=== PATIENT | male | born 1945 | race Caucasian/White ===

== ENCOUNTER 2022-11-02 18:42 | Inpatient (IN) | payer OTHER, SELFPAY ==
--- NOTE | ~2022-11-02 | CT_ITS ---
EXAMINATION: CT CHEST, ABDOMEN AND PELVIS WITHOUT CONTRAST CLINICAL INFORMATION: Reason for Exam hematoma over the left chest COMPARISON: Chest radiograph 11/02/2022 TECHNIQUE: Multidetector volumetric imaging was performed from the thoracic inlet through the pubic symphysis without IV contrast. Sagittal and coronal reformatted images were obtained on the technologist's workstation. This CT examination was performed using dose optimization techniques as appropriate, variously including the following: *Automated exposure control *Adjustment of mA and/or kV according to patient size (this includes techniques or standardized protocols for targeted exams where dose is matched to indication/reason for exam; i.e. extremities or head) *Use of iterative reconstruction technique DLP: 1040 mGy-cm FINDINGS: CHEST: Lung: Large calcified granuloma present in the right upper lobe. There is a small left pleural effusion with left basilar atelectasis. The lungs are otherwise clear without worrisome focal opacity or nodule. Mediastinum: Extensive coronary calcium is present. Status post median sternotomy and CABG. Heart size upper limits of normal. No aortic aneurysm. No hilar or mediastinal lymphadenopathy. Pericardium/Pleura: No significant effusion. No pleural mass or thickening. Chest Wall/Axilla: A large left chest wall hematoma is present measuring 9.4 x 14.7 x 15.7 cm (3:26). The hematoma displaces a left chest wall pacemaker with 3 leads are present in good position. A second hematoma is noted in front of the left scapula measuring 12.1 x 4.9 x 8.8 cm (3:19). Patient status post median sternotomy. A left shoulder prosthesis is present. ABDOMEN/PELVIS: Peritoneal Space: No significant free air or free fluid identified. Liver, Gallbladder, Biliary Tree: The liver is normal in size, shape, and attenuation. No focal hepatic lesion or biliary ductal dilatation is present. The gallbladder is unremarkable with no evidence of radiopaque gallstones, gallbladder wall thickening, or obvious pericholecystic inflammatory changes. Pancreas: Unremarkable Spleen: Unremarkable Adrenal Glands: Unremarkable Kidneys and Ureters: The kidneys are normal in size, shape, and attenuation. No hydronephrosis, hydroureter, or calculi seen. No perinephric stranding. Bladder: Unremarkable Gastrointestinal Tract: The small and large bowel are unremarkable. The appendix is unremarkable. Abdominal Wall: No significant hernia is appreciated. Lymph Nodes: No retroperitoneal lymphadenopathy. Vascular: The aorta appears unremarkable aside from calcific plaque. The IVC appears unremarkable. PELVIC VISCERA: The prostate and seminal versicles are unremarkable. OSSEUS STRUCTURES: Moderate degenerative changes are noted in the spine. No bony destructive lesions are seen. CT/CT abdomen pelvis wo IV con IMPRESSION: 2 Large left chest wall hematomas. Other incidental findings as described above. Fleischner guidelines were followed.
--- NOTE | ~2022-11-02 | XR_ITS ---
EXAMINATION: XR CHEST CLINICAL INFORMATION: Chest pain. COMPARISON: None available. TECHNIQUE: Frontal view of the chest was obtained. FINDINGS: Minimal patchy left upper lobe opacities which could represent atelectasis versus early infiltrates. No pleural effusion or pneumothorax. Mild cardiomegaly. Sternal wires and mediastinal surgical clips. Left chest wall pacer/ICD with its leads in the right heart. Partially visualized left shoulder arthroplasty. XR/XR chest 1V IMPRESSION: 1. Minimal patchy left upper lobe opacities which could represent atelectasis versus early infiltrates. 2. Mild cardiomegaly.
--- NOTE | ~2022-11-02 | CT_ITS ---
EXAMINATION: CT HEAD WITHOUT CONTRAST CLINICAL INFORMATION: CVA. COMPARISON: None. TECHNIQUE: Contiguous axial imaging was performed from the skull base to vertex without intravenous administration of contrast. Coronal and sagittal reformatted images are performed at the CT scanner. [This CT examination was performed using dose optimization techniques as appropriate, variously including the following: *Automated exposure control *Adjustment of mA and/or kV according to patient size (this includes techniques or standardized protocols for targeted exams where dose is matched to indication/reason for exam; i.e. extremities or head) *Use of iterative reconstruction technique] DLP: 680 mGy-cm. FINDINGS: There is no evidence of acute intracranial hemorrhage or territorial infarction. No abnormal mass-effect or midline shift is seen. Vasquez to white matter differentiation is well preserved. No extra-axial fluid collections are identified. There is generalized global volume loss. There is moderate prominence of the ventricles and the sulci . There is moderate hypodensity of the periventricular white matter due to chronic small vessel ischemic disease. There are vascular calcifications of the internal carotid arteries bilaterally. There is no osseous abnormality. The mastoid air cells and visualized portions of the paranasal sinuses are well-aerated. CT/CT head/brain wo IV con IMPRESSION: No acute intracranial pathology.
[2022-11-02 19:17] VITALS: BP 126/55; BP 164/53; PULSE 71; PULSE 81; RESP 20; TEMP 37; O2SAT 96; O2SAT 97; BMI 28.5
[2022-11-02 20:00] VITALS: BP 164/53; PULSE 71; RESP 20; TEMP 37; O2SAT 97
--- NOTE | 2022-11-02 20:22 | ECG_ITS ---
Test Reason : CP Blood Pressure : / mmHG Vent. Rate : 070 BPM Atrial Rate : 070 BPM P-R Int : 000 ms QRS Dur : 148 ms QT Int : 448 ms P-R-T Axes : 000 -47 070 degrees QTc Int : 483 ms Ventricular-paced rhythm Biventricular pacemaker detected Abnormal ECG No previous ECGs available Referred By: Nancie Mcmillan Electronically Signed By:Nadir Stock
--- NOTE | 2022-11-02 20:36 | ED.AMS ---
HPI - Altered Mental Status General Chief Complaint: Altered Mental Status Stated Complaint: ams Time Seen by Provider: 11/02/22 19:22 History of Present Illness HPI narrative: Patient is a 77-year-old male presents today with having sudden episode of wheezing into space had difficulty with enunciating words. Confused about the direction ways going. There is no focal weakness. Patient has a history of coronary artery disease. Status post stent in the past. Positive history of having aortic valve replacement. It is a mechanical valve and patient was placed on Coumadin. About 10 days ago patient also had shoulder surgery at [facility]. At the time the Coumadin was stopped and has been restarted. Patient denies any fever chills. No focal weakness. All the symptom has resolved. Presents to the ED for further evaluation. Related Data Home Medications Medication Instructions Recorded Confirmed alirocumab 150 mg/mL subcutaneous 150 mg subcut Q2W 11/02/22 11/02/22 pen injector (Praluent Pen) aspirin 81 mg tablet,delayed 81 mg PO DAILY 11/02/22 11/02/22 release bisoprolol fumarate 5 mg tablet 5 mg PO BID 11/02/22 11/02/22 digoxin 125 mcg (0.125 mg) tablet 1 tab PO DAILY 11/02/22 11/02/22 lansoprazole 30 mg capsule,delayed 30 mg PO DAILY 11/02/22 11/02/22 release latanoprost 0.005 % eye drops 1 drp ophthalmic (eye) BEDTIME 11/02/22 11/02/22 tamsulosin 0.4 mg capsule 1 cap PO DAILY 11/02/22 11/02/22 valsartan 80 mg tablet 1 tab PO DAILY 11/02/22 11/02/22 warfarin 5 mg tablet 5 mg PO Q2D 11/02/22 11/02/22 warfarin 5 mg tablet 7.5 mg PO Q2D 11/02/22 11/02/22 Allergies Allergy/AdvReac Type Severity Reaction Status Date / Time No Known Allergies Allergy Verified 11/02/22 20:07 Review of Systems Review of Systems: Positive slurred speech Positive confusion Yes all other systems are reviewed and are negative [facility] Past Medical History Attestation statement: The following information was validated with the patient. Social History Social History Alcohol intake: current Alcohol intake frequency: holidays/special occasions only Smoked in Last 30 Days: No Use of substances other than those prescribed or required for medical reasons: No Advance Directives: Yes Advance Directives Information Provided: No Advance Directives on File: No Physical Exam ED Vital Signs: Vital Signs - 24 hr 11/02/22 19:17 11/02/22 20:00 11/02/22 22:33 Temperature 98.6 F 98.6 F 99 F Pulse Rate 71 71 10 L Respiratory Rate 20 20 24 H Blood Pressure 164/53 H 164/53 H 163/65 H Pulse Oximetry 97 97 Oxygen Delivery Method Room Air Room Air 11/02/22 22:00 Temperature 99 F Pulse Rate 70 Respiratory Rate 21 H Blood Pressure 168/61 H Pulse Oximetry 97 Oxygen Delivery Method Room Air BMI result Body Mass Index 28.5 Appearance: Alert. Oriented X3. No acute distress. Eyes: Pupils equal, round and reactive to light. ENT: Pharynx normal. Neck: Normal inspection. Neck supple. No lymph nodes noted. No crepitus CVS: Normal heart rate and rhythm. Pulses normal. Normal S1 and S2 Respiratory: No respiratory distress. Breath sounds normal. No Wheezing. No rales Abdomen: Soft and nontender. No rigidity. No distention. good BS x4 Skin: Skin warm and dry. Normal skin color. Normal skin turgor. Rectal exam was done with nurse saadia present. Heme-negative brown stool Extremities: Positive swelling over the left pectoralis area patient's wound over the left shoulder grossly intact sensation distally intact positive swelling to the upper extremity capillary refill less than 2 seconds. Neuro: Oriented X 3. No motor deficit. No sensory deficit. Moving all extermities. No slurred speech. Please see NIH stroke scale NIH Stroke Scale Internal: Initial- Upon Arrival Time: 20:48 Level of Consciousness: Alert Level of Consciousness Questions: Answers both questions correctly Level of Consciousness Commands: Performs both tasks correctly Best Gaze: Normal Visual: No visual loss Facial Palsy: Normal Motor Arm (Right): No drift Motor Arm (Left): No drift Motor Leg (Right): No drift Motor Leg (Left): No drift Limb Ataxia: Absent Sensory: Normal Best Language: No aphasia Dysarthia: Normal Extinction and Inattention: No abnormality Score: 0 Medical Decision Making Medical Decision Making MDM Narrative: Patient's symptoms most likely consistent with TIA. Symptom has completely resolved. NIH stroke scale was 0. Patient is on Coumadin making patient not a candidate for tPA. Also symptoms of brief duration neurologic is status back to baseline not a candidate for tPA. Will get CT scan of the head. Electrolytes pending. INR pending. Patient's INR is over 3 therapeutic. Hemoglobin however came back at 6.3. Grossly anemic. Most likely cause of patient's anemia secondary to the large hematoma over the pectoralis and also over the abdomen. Rectal exam was done it was grossly heme negative from below. Risk and benefit of transfusion discussed with patient. Elected to transfuse patient with blood. Risk include risk of infection risk of human error patient states understanding. Patient had likely TIA. I reviewed the CT sc grossly there is no bleeding. Case discussed with hospitalist team for admission. Will monitor carefully. In stable condition. Differential Diagnosis Differential Diagnoses: The differential diagnosis associated with the presentation includes CVA, TIA, hypoglycemia, bleed Admission/Observation Consideration of admission/observation: Escalation of care including admission/observation considered Consult Healthcare Provider Management of the patient was discussed with: Hospitalist Lab Data MDM Lab Attestation statement: I reviewed the patient's lab results. 11/02/22 21:00 11/02/22 21:00 Labs: Lab Results 11/02/22 11/02/22 11/02/22 Range/Units 21:00 21:00 21:00 WBC 14.6 H (4.8-10.8) X10*3/uL RBC 1.98 L (4.60-5.80) X10*6/uL Hgb 6.3 L* (14.0-18.0) g/dl Hct 19.2 L* (42.0-52.0) % MCV 97.0 (80.0-98.0) fL MCH 31.8 (27.0-33.0) pg MCHC 32.8 (31.0-36.0) g/dl RDW 15.3 (11.0-16.0) % Plt Count 440 H (160-400) X10*3/uL MPV 9.2 L (9.4-12.4) fL Immature Gran % (Auto) 1.3 H (0.0-0.4) % Neut % (Auto) 82.5 H (45-73) % Lymph % (Auto) 7.1 L (20-40) % [place] % (Auto) 8.7 (2-11) % Eos % (Auto) 0.3 (0-4) % Baso % (Auto) 0.1 (0-2) % Lymph # (Auto) 1.0 L (1.2-4.9) X10*3/uL [place] # (Auto) 1.3 H (0.1-1.2) X10*3/uL Eos # (Auto) 0.1 (0.0-0.4) X10*3/uL Baso # (Auto) 0.0 (0.0-0.2) X10*3/uL Abs Immat Gran (auto) 0.19 H (0.00-0.03) X10*3/uL Absolute Neuts (auto) 12.1 H (2.0-8.3) x10*3/uL Absolute Nucleated RBC 0.020 H (0.0-0.012) X10*3/uL Nucleated RBC % (auto) 0.1 (0.0-0.2) /100WBC PT (10.0-13.1) SEC INR (0.9-1.1) Sodium 129 L (135-145) mmol/L Potassium 4.3 (3.3-5.1) mmol/L Chloride 96 (96-108) mmol/L Carbon Dioxide 25 (22-29) mmol/L Anion Gap 12 (12-20) BUN 16 (9-16) mg/dL Creatinine 0.68 (0.5-1.4) mg/dL Estim Creat Clear Calc 108.9 Estimated GFR > 60 Random Glucose 120 H (60-115) mg/dL Calcium 8.2 L (8.4-10.2) mg/dL Total Bilirubin 2.8 H (0.0-1.0) mg/dL Direct Bilirubin 1.0 H (0.0-0.5) mg/dL AST 39 H (5-37) U/L ALT 20 (0-40) U/L Alkaline Phosphatase 79 (39-117) U/L Troponin I High Sens 48.5 H (<3.5-35.0) ng/L Total Protein 5.6 L (6.5-8.0) g/dL Albumin 3.2 L (3.5-5.0) g/dL Stool Occult Blood (NEGATIVE) Blood Type Antibody Screen Crossmatch 11/02/22 11/02/22 11/02/22 Range/Units 21:00 21:33 21:33 WBC (4.8-10.8) X10*3/uL RBC (4.60-5.80) X10*6/uL Hgb (14.0-18.0) g/dl Hct (42.0-52.0) % MCV (80.0-98.0) fL MCH (27.0-33.0) pg MCHC (31.0-36.0) g/dl RDW (11.0-16.0) % Plt Count (160-400) X10*3/uL MPV (9.4-12.4) fL Immature Gran % (Auto) (0.0-0.4) % Neut % (Auto) (45-73) % Lymph % (Auto) (20-40) % [place] % (Auto) (2-11) % Eos % (Auto) (0-4) % Baso % (Auto) (0-2) % Lymph # (Auto) (1.2-4.9) X10*3/uL [place] # (Auto) (0.1-1.2) X10*3/uL Eos # (Auto) (0.0-0.4) X10*3/uL Baso # (Auto) (0.0-0.2) X10*3/uL Abs Immat Gran (auto) (0.00-0.03) X10*3/uL Absolute Neuts (auto) (2.0-8.3) x10*3/uL Absolute Nucleated RBC (0.0-0.012) X10*3/uL Nucleated RBC % (auto) (0.0-0.2) /100WBC PT 41.3 H (10.0-13.1) SEC INR 3.4 H (0.9-1.1) Sodium (135-145) mmol/L Potassium (3.3-5.1) mmol/L Chloride (96-108) mmol/L Carbon Dioxide (22-29) mmol/L Anion Gap (12-20) BUN (9-16) mg/dL Creatinine (0.5-1.4) mg/dL Estim Creat Clear Calc Estimated GFR Random Glucose (60-115) mg/dL Calcium (8.4-10.2) mg/dL Total Bilirubin (0.0-1.0) mg/dL Direct Bilirubin (0.0-0.5) mg/dL AST (5-37) U/L ALT (0-40) U/L Alkaline Phosphatase (39-117) U/L Troponin I High Sens (<3.5-35.0) ng/L Total Protein (6.5-8.0) g/dL Albumin (3.5-5.0) g/dL Stool Occult Blood NEGATIVE (NEGATIVE) Blood Type O Positive Antibody Screen NEGATIVE Crossmatch See Detail Independent Interpretation I performed an independent interpretation of an: EKG Interpretation: My interpretation patient's EKG is a paced rhythm heart rate was 70 Radiology Impression Discussion of test interpretation with radiology: I have reviewed the radiologist's reading. Independent Historian Son Chronic Conditions Patient?s care impacted by: Hypertension History of coronary artery disease. History of being on Coumadin for aortic valve replacement Critical Care Time Critical Care Time Critical Care Time: Yes Total Critical Care Time: 40 Attestation: I have personally provided 40 minutes of critical care time exclusive of time spent on separately billable procedures. Time includes review of lab data, radiology results, discussion with consultants, and monitoring for potential decompensation. Interventions were performed as documented above Discharge Plan Discharge Clinical Impression: Anemia, Brain TIA Patient Disposition: Admitted As Inpatient
[2022-11-02 21:04] LABS: MANUAL DIFF FLAG NO
[2022-11-02 21:05] LABS: Basophils Percent Auto 0.1 % (0-2); Eosinophils Percent Auto 0.3 % (0-4); Lymphocytes Percent Auto 7.1 % (20-40); Red Cell Distribution Width 15.3 % (11.0-16.0)
[2022-11-02 21:10] LABS: Eosinophils Absolute Auto 0.1 X10*3/uL (0.0-0.4); INTERNATIONAL NORM RATIO 3.4 (0.9-1.1); Imm Gran Abs Auto 0.19 X10*3/uL (0.00-0.03); Imm Gran Pct Auto 1.3 % (0.0-0.4); Mean Corpuscular HGB Conc 32.8 g/dl (31.0-36.0); Mean Corpuscular Hemoglobin 31.8 pg (27.0-33.0); Mean Platelet Volume 9.2 fL (9.4-12.4); Monocytes Absolute Auto 1.3 X10*3/uL (0.1-1.2); Monocytes Percent Auto 8.7 % (2-11); NRBC Pct Auto 0.1 /100WBC (0.0-0.2); Neutrophils Absolute Auto 12.1 x10*3/uL (2.0-8.3); Neutrophils Percent Auto 82.5 % (45-73); Platelet Count 440 X10*3/uL (160-400); Prothrombin Time 41.3 SEC (10.0-13.1); Red Blood Count 1.98 X10*6/uL (4.60-5.80); White Blood Count 14.6 X10*3/uL (4.8-10.8)
[2022-11-02 21:13] LABS: Hematocrit 19.2 % (42.0-52.0); Hemoglobin 6.3 g/dl (14.0-18.0)
[2022-11-02 21:24] LABS: Alanine Aminotransferase 20 U/L (0-40); Albumin Level 3.2 g/dL (3.5-5.0); Alkaline Phosphatase 79 U/L (39-117); Anion Gap 12 (12-20); Aspartate Amino Transferase 39 U/L (5-37); Bilirubin Total 2.8 mg/dL (0.0-1.0); Blood Urea Nitrogen 16 mg/dL (9-16); Calcium 8.2 mg/dL (8.4-10.2); Carbon Dioxide 25 mmol/L (22-29); Chloride 96 mmol/L (96-108); Creatinine Clr Calc Pharmacy 108.9; Estimated Glomerular Filt Rate > 60; Glucose Random 120 mg/dL (60-115); Potassium 4.3 mmol/L (3.3-5.1); Sodium 129 mmol/L (135-145); Total Protein 5.6 g/dL (6.5-8.0)
[2022-11-02 21:31] LABS: Troponin-I High Sensitivity 48.5 ng/L (<3.5-35.0)
[2022-11-02 21:42] LABS: OBS Int Ctl Valid YES; OBS1 NEGATIVE (NEGATIVE)
[2022-11-02 22:00] VITALS: BP 168/61; PULSE 70; RESP 21; TEMP 37.2; O2SAT 97
--- NOTE | 2022-11-02 22:10 | PHA.MEDREC ---
Pharmacy Consult ? Medication Reconciliation Pharmacy has completed the medication reconciliation. Cesar was very irrate, in much pain and not given anything. he states with his son that he was supposed to borrow warfarin today, but was told to hold off since he was going to the ED. Patient states he had an adverse effect from the zolpidem and is no longer taking it Jeremie
[2022-11-02 22:33] VITALS: BP 163/65; PULSE 10; RESP 24; TEMP 37.2
[2022-11-02 22:52] VITALS: BP 160/73; PULSE 70; RESP 22; TEMP 37
[2022-11-02] MEDS: HYDROmorphone HCl 0.5 MG/0.5 ML SYRINGE 0.25 MG IVPUSH (22:58)
[2022-11-02 23:09] LABS: COVID-19 Test Negative (Negative); IDNOW Serial# 6674DD1D
[2022-11-02 23:16] VITALS: BP 154/61; PULSE 70; RESP 13; TEMP 37; O2SAT 97
--- NOTE | 2022-11-02 23:16 | P.HPHOSP_ITS ---
History of Present Illness Date of Service: 11/02/22 Chief Complaint: Speech deficit This is a 77-year-old male with pertinent history of aortic stenosis status post valve replacement on Coumadin, atrial fibrillation status post pacemaker, BPH, essential hypertension, mixed hyperlipidemia, gastroesophageal reflux disease who presents to the emergency department for evaluation of abnormal speech. Patient states it was sudden onset on the day of presentation. States he could not find words and son at bedside states that his speech was mumbled. It lasted for about 2 hours and resolved. No blurring of vision, extremity weakness, facial droop or similar complaints in the past. Patient had shoulder surgery about 2 weeks ago at [facility]. He has noticed progressively worsening of hematoma at the site of shoulder surgery. He saw his orthopedic surgeon who recommended conservative management of the hematoma. Patient denies fever, chills, chest discomfort, palpitations, shortness of breath, abdominal pain, changes in urinary or bowel habits. In the emergency department, CT head negative. Hemoglobin was found to be 6.3 Review of Systems Constitutional: Constitutional: Reports fatigue Cardiovascular: Cardiovascular: Reports no additional cardiovascular complaints Respiratory: Respiratory: Reports no additional respiratory complaints Gastrointestinal: Gastrointestinal: Reports no additional gastrointestinal complaints Genitourinary: Genitourinary: Reports no additional male genitourinary complaints Neurologic: Reports Abnormal speech present Endocrine: Endocrine: Reports fatigue PMFSH Medical History Atrial fibrillation BPH (benign prostatic hyperplasia) Essential hypertension Hyperlipidemia Pacemaker Pertinent family history: no family history of CAD Surgical History H/O aortic valve replacement Social History Alcohol intake: current Alcohol intake frequency: holidays/special occasions only Smoked in Last 30 Days: No Use of substances other than those prescribed or required for medical reasons: No Advance Directives: Yes Advance Directives Information Provided: No Advance Directives on File: No Meds Allergies Allergy/AdvReac Type Severity Reaction Status Date / Time No Known Allergies Allergy Verified 11/02/22 20:07 Active Medications: Current Medications Pharmacy Consult (Consult Rx Perform Med Rec) 1 each MISCELLANE ONCE PRN PRN Reason: Consult order Home Medications Medication Instructions Recorded Confirmed Last Taken Type alirocumab 150 mg/mL subcutaneous 150 mg subcut Q2W 11/02/22 11/02/22 Unknown History pen injector (Praluent Pen) aspirin 81 mg tablet,delayed 81 mg PO DAILY 11/02/22 11/02/22 11/02/22 History release bisoprolol fumarate 5 mg tablet 5 mg PO BID 11/02/22 11/02/22 11/01/22 History digoxin 125 mcg (0.125 mg) tablet 1 tab PO DAILY 11/02/22 11/02/22 11/02/22 History lansoprazole 30 mg capsule,delayed 30 mg PO DAILY 11/02/22 11/02/22 11/02/22 History release latanoprost 0.005 % eye drops 1 drp ophthalmic (eye) BEDTIME 11/02/22 11/02/22 11/01/22 History tamsulosin 0.4 mg capsule 1 cap PO DAILY 11/02/22 11/02/22 Unknown History valsartan 80 mg tablet 1 tab PO DAILY 11/02/22 11/02/22 Unknown History warfarin 5 mg tablet 5 mg PO Q2D 11/02/22 11/02/22 Unknown History warfarin 5 mg tablet 7.5 mg PO Q2D 11/02/22 11/02/22 Unknown History Physical Exam Vital Signs and Narrative: Vital Signs: Last Vital Signs Temp 98.6 F 11/02/22 22:52 Pulse 70 11/02/22 22:52 Resp 22 H 11/02/22 22:52 BP 160/73 H 11/02/22 22:52 Pulse Ox 97 11/02/22 22:00 O2 Del Method 11/02/22 22:00 BMI result Body Mass Index 28.5 Middle-aged male lying in bed in no distress Neck supple, no JVD, swelling over the left pectoralis region Regular rate and rhythm, S1-S2 heard Regular breath sounds bilaterally, no wheezing or crackles appreciated Abdomen soft nontender, no guarding, no rigidity Patient is awake, alert and oriented to self, place, time and person ; no focal motor deficit skin with multiple petechiae Psych: Normal mood No pedal edema Neuro: Speech: Abnormal speech present Results Labs 11/02/22 21:00 11/02/22 21:00 Labs: Laboratory Results - last 24 hr 11/02/22 11/02/22 11/02/22 21:00 21:00 21:00 MCV 97.0 MCH 31.8 MCHC 32.8 RDW 15.3 Plt Count 440 H MPV 9.2 L Immature Gran % (Auto) 1.3 H Neut % (Auto) 82.5 H Lymph % (Auto) 7.1 L [place] % (Auto) 8.7 Eos % (Auto) 0.3 Baso % (Auto) 0.1 Lymph # (Auto) 1.0 L [place] # (Auto) 1.3 H Eos # (Auto) 0.1 Baso # (Auto) 0.0 Abs Immat Gran (auto) 0.19 H Absolute Neuts (auto) 12.1 H Absolute Nucleated RBC 0.020 H Nucleated RBC % (auto) 0.1 PT INR Anion Gap 12 Estim Creat Clear Calc 108.9 Estimated GFR > 60 Random Glucose 120 H Calcium 8.2 L Total Bilirubin 2.8 H Direct Bilirubin 1.0 H AST 39 H ALT 20 Alkaline Phosphatase 79 Troponin I High Sens 48.5 H Total Protein 5.6 L Albumin 3.2 L Stool Occult Blood COVID-19 (LUZ MARINA) COVID-19 [employer] Blood Type Antibody Screen Crossmatch 11/02/22 11/02/22 11/02/22 21:00 21:33 21:33 MCV MCH MCHC RDW Plt Count MPV Immature Gran % (Auto) Neut % (Auto) Lymph % (Auto) [place] % (Auto) Eos % (Auto) Baso % (Auto) Lymph # (Auto) [place] # (Auto) Eos # (Auto) Baso # (Auto) Abs Immat Gran (auto) Absolute Neuts (auto) Absolute Nucleated RBC Nucleated RBC % (auto) PT 41.3 H INR 3.4 H Anion Gap Estim Creat Clear Calc Estimated GFR Random Glucose Calcium Total Bilirubin Direct Bilirubin AST ALT Alkaline Phosphatase Troponin I High Sens Total Protein Albumin Stool Occult Blood NEGATIVE COVID-19 (LUZ MARINA) COVID-[employer] Blood Type O Positive Antibody Screen NEGATIVE Crossmatch See Detail 11/02/22 22:43 MCV MCH MCHC RDW Plt Count MPV Immature Gran % (Auto) Neut % (Auto) Lymph % (Auto) [place] % (Auto) Eos % (Auto) Baso % (Auto) Lymph # (Auto) [place] # (Auto) Eos # (Auto) Baso # (Auto) Abs Immat Gran (auto) Absolute Neuts (auto) Absolute Nucleated RBC Nucleated RBC % (auto) PT INR Anion Gap Estim Creat Clear Calc Estimated GFR Random Glucose Calcium Total Bilirubin Direct Bilirubin AST ALT Alkaline Phosphatase Troponin I High Sens Total Protein Albumin Stool Occult Blood COVID-19 (LUZ MARINA) Negative COVID-19 Clin Com See Note Blood Type Antibody Screen Crossmatch Imaging Radiologist's Impressions: Impressions Chest X-Ray 11/02/22 20:40 IMPRESSION: 1. Minimal patchy left upper lobe opacities which could represent atelectasis versus early infiltrates. 2. Mild cardiomegaly. Head CT 11/02/22 22:25 IMPRESSION: No acute intracranial pathology. Assessment and Plan (1) Brain TIA: Status: Acute (2) Anemia: Status: Acute Plan This is a 77-year-old male with pertinent history of aortic stenosis status post valve replacement on Coumadin, atrial fibrillation status post pacemaker, BPH, essential hypertension, mixed hyperlipidemia, gastroesophageal reflux disease who presents to the emergency department for evaluation of abnormal speech. #. abnormal speech, resolved: ?TIA . Unable to obtain MRI as patient has pacemaker. Consulting Neurology, appreciate assistance #. Blood loss anemia, likely in the setting of enlarging hematoma: Stool guaiac negative in the ER. Patient denies hematemesis, hematuria, melena or hematochezia. Transfusing 1 unit PRBC in the ER, monitor H&H in a.m. CT chest pending to look at the chest wall hematoma and delineate anatomy. Patient states he saw his orthopedic surgeon who recommended conservative management of hematoma #. Reactive leukocytosis: defer antibiotics #. s/p aortic valve replacement: On Coumadin, Hold as INR is supratherapeutic. INR goal 2-3. Repeat INR in a.m. #. elevated troponin: Likely due to increased demand. #. BPH on Flomax #. essential hypertension: Continue home antihypertensives #. atrial fibrillation: Status post pacemaker. Patient also on digoxin and beta-prem med rec pending DVT prophylaxis: Coumadin Cardiac diet Full code Time Spent With Patient Time: Total time managing care of this patient today ____ minutes. Quality Stroke Does the patient have a stroke diagnosis?: No VTE Prior VTE?: No VTE Risk Level:: Medical - moderate - high VTE Device Contraindication: Treatment Not Indicated VTE Drug Contraindication: N/A - Med Ordered
[2022-11-03] VITALS (12 sets, daily range): BP systolic 134–168; BP diastolic 49–74; PULSE 70–72; RESP 14–23; TEMP 36.6–37.3; O2SAT 94–98
[2022-11-03] MEDS: ondansetron HCL 4 MG/2 ML VIAL IVPUSH (00:25)
[2022-11-03] MEDS: Morphine Sulfate 4 MG/ML CARTRIDGE IVPUSH ×2 (00:25→04:29)
[2022-11-03] MEDS: 0.9 % Sodium Chloride Flush 3 ML SYRINGE IVFLUSH ×3 (00:26→20:50)
[2022-11-03] MEDS: 0.9 % Sodium Chloride 500 ML IV (00:26)
[2022-11-03 00:49] LABS: Appearance Urine Clear; Color Urine Dark Yellow; Glucose Urine UA Negative (Negative); Leukocyte Esterase Urine Trace (Negative); Nitrite Urine Positive (Negative); PH 5.5 (5.0-9.0); Specific Gravity - Urine 1.025 (1.005-1.025); UMIC TRIGGER UACC YES; Urine Blood Negative (Negative); Urine Ketones Trace mg/dL (Negative); Urine Protein 30 (1+) mg/dL (Neg-Trace)
[2022-11-03 00:58] LABS: Bacteria Urine Trace (None Seen); Squamous Epithelial Cell Urine 0-2 /HPF (0-2); UACC Culture Trigger YES; WBC Urine 0-5 /HPF (0-5)
--- OUTSIDE RECORDS SUMMARY | 2022-11-03 05:31 | XMS_ITS | Continuity of Care Document ---
:1945 Author Organization [facility] Care Team Providers Name Role Phone DOD-IN Unavailable Unavailable Problems Combined list of problems from Department of Defense and Veterans Affairs facilities. It does not include entries that were removed or entered in error. Problem Status Onset Problem Date of Comments Source Date Type Resolution Aortic valve Active Condition Feb 10, [facility] CNT RL disorders 993 2011 Entered WSTRN By: KARLA ROME [facility] ANAYELI F Comment: AVR with St See's 01/1993. Allergic rhinitis * Active Condition [facility] (ICD-9-CM 477.9) WST RN JENIFFER Wiggins [facility] Carcinoma, Basal Active Condition [facility] CN[facility] Cell (ICD-9-CM WSTRN 173.9) JENIFFER Wiggins [facility] Cardiac pacemaker in Active Condition [facility] situ WSTRN JENIFFER Wiggins [facility] Cervicalgia (SNOMED Active Condition [facility] CNTRL CT 32900910) WSTRN MIGUEL ÁNGELBEBETO Wiggins [facility] Chronic Active Condition Nov 18, [place] CNTRL post-traumatic 2011 Entered WS TRN stress disorder By: MIGUEL ÁNGEL BAKERS following ARRUBLA,Oct [facility] combat (SNOMED CT S Comment : [id number]) back on psychotherapy Dec 09, 2016 Entered By: VERN MEDELLIN Comment: update Aug 19, 2017 Entered By: VERN MEDELLIN Comment: ujpdate Aug 09, 2018 Entered By: VENR MEDELLIN Comment: udpate Oct 23, 2021 Entered By: SHAWN SILVER Comment: stable Congestive heart Active Condition Jul 01, [place] CNTRL failure 2015 Entered WSTRN By: DANIEL MOISE [facility] Comment: LILIANA 05/11/16 EF 30% Coronary artery Active Condition Jul 01, [place] CNTR[facility] disease 2015 Entered WSTRN By: DANIEL MOISE [facility] Comment: LCx MICHAEL 03/05/16 Essential Active Condition [facility] hypertension (SNOMED WSTRN CT 02426551) [place] [facility] Gastroesophageal Active Condition [facility] reflux disease WSTR[facility] (SNOMED CT [place] 064822919) HCS Headache * (ICD-9-CM Active Condition [facility] 784.0) [facility] [place] [facility] Hearing loss * Active Condition [facility] CN TRL (ICD-9-CM 389.9) WST RN [place] [facility] Heme Positive Stool Active Condition [facility] [place] [facility] History of Active Condition [facility] mechanical heart WST RN valve replacement [place] [facility] Hyperlipidemia Active Condition [facility] CN TRL (SNOMED CT 18857443) [facility] [place] [facility] Impaired fasting Active Condition [facility] glucose [facility] [place] [facility] L/T (CURRENT) USE - Active Condition [facility] ANTICOAG [facility] [place] [facility] Long-term current Active Condition [facility] [place] use of anticoagulant Osteonecrosis Active Condition [facility] CNT RL [facility] [place] [facility] Overweight (ICD-9-CM Active Condition [facility] 278.02) [facility] [place] [facility] Pain of left Active Condition [facility] shoulder joint [facility] [place] [facility] Refractive error Active Condition [facility] (ICD-9-CM 367.9) [facility]ST RN [place] [facility] Sleep apnea Active Condition [facility] [place] [facility] STRESS TEST Active Condition Aug 01, [facility] CN[facility] L 2009 Entered WSTRN By: MAVERICK LEDEZMA [facility] R Comment: nl setamibi 07/02-mgh Adjustment Disorder Inactive Condition 08/18/2011 [facility] with Mixed Anxiety [facility]N and Depressed Mood [facility] Diagnosis: ICD-10-CM Active Diagnosis [facility] Z51.81 Encounter for WSTRN therapeutic drug [place] level monitoringwith [facility] Provider Comments: Therapeutic Drug Level Monitoring Diagnosis: ICD-10-CM Active Diagnosis [facility] G47.30 Sleep apnea, WSTRN unspecifiedwith [place] Provider Comments: H CS Sleep apnea (SNOMED CT 29276258) Diagnosis: ICD-10-CM Active Diagnosis [facility] Z71.9 Counseling, [place] TRN unspecifiedwith [place] Provider Comments: H CS Counseling, unspecified Diagnosis: ICD-10-CM Active Diagnosis [facility] M87.822 Other WSTRN osteonecrosis, left [place] humeruswith Provider HCS Comments: Osteonecrosis (SNOMED CT 440597396) Diagnosis: ICD-10-CM Active Diagnosis [facility] F43.12 WSTRN Post-traumatic [place] stress disorder, HCS chronicwith Provider Comments: Chronic post-traumatic stress disorder following combat ([facility] [id number]) Diagnosis: ICD-10-CM Active Diagnosis [place] Z79.01 retirement (current) use of anticoagulantswith Provider Comments: Recreational Aide Current Use of Anticoagulants Diagnosis: ICD-10-CM Active Diagnosis [facility] H40.1234 Low-tension WSTRN glaucoma, bilateral, [place] indeterminate HCS stagewith Provider Comments: Low-Tension Glaucoma, Bilateral, Indeterminate Stage Diagnosis: ICD-10-CM Active Diagnosis [facility] CNTR L71.8 Other WSTRN rosaceawith Provider [place] Comments: Other HCS Rosacea Diagnosis: ICD-10-CM Active Diagnosis [facility] Z46.0 Encounter for WSTRN fit/adjst of [place] spectacles and HCS contact lenseswith Provider Comments: Encounter for Fitting and Adjustment of Spectacles and Contact Lenses Diagnosis: ICD-10-CM Active Diagnosis MELISSA [facility] E78.5 [facility]INIC Hyperlipidemia, (631 GE) unspecifiedwith Provider Comments: Hyperlipidemia ([facility] [id number]) Diagnosis: ICD-10-CM Active Diagnosis [facility] G47.30 Sleep apnea, WSTRN unspecifiedwith [place] Provider Comments: H CS Sleep Apnea, unspecified Diagnosis: ICD-10-CM Active Diagnosis [facility] I50.22 Chronic WSTRN systolic [place] (congestive) heart H CS failurewith Provider Comments: Congestive heart failure ([facility] [id number]) Diagnosis: ICD-10-CM Active Diagnosis [facility] 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, HCS lumbosacr regionwith Provider Comments: Spondylosis without Myelopathy or Radiculopathy, Lumbosacral Region Diagnosis: ICD-10-CM Active Diagnosis [facility] Z46.1 Encounter for WSTRN fitting and [place] adjustment of HCS hearing aidwith Provider Comments: Encounter for Fitting and Adjustment of Hearing Aid Diagnosis: ICD-10-CM Active Diagnosis [facility] H90.3 Sensorineural WSTRN hearing loss, [place] bilateralwith HCS Provider Comments: Sensorineural Hearing Loss, Bilateral Medications Combined list of outpatient medications from Department of Defense and Veterans Affairs facilities. Medications provided include 1) outpatient medications from the last 15 months, and 2) patient-reported medications. Medication Details Route Status Patient Prescription Prescription Last Ordering Order Source Instructions Expires Number Dispense Provider Date Date ASPIRIN TAKE ONE ORAL ACTIVE 12/26/2022 [id number] AHMED,MO H 12/29/ [facility] 81MG TAB,EC TABLET 2 AMMED 2021 CNTRL BY MOUTH JAWED WSTRN ONCE [place] DAILY TO SETS PREVENT HCS STROKE/H EART ATTACK ASPIRIN TAKE ONE ORAL DISCONT 04/15/2022 [id number] AHMED,MO H 04/15/ [facility] 81MG TAB,EC TABLET INUED 2 AMMED 2020 CNTRL BY MOUTH JAWED WSTRN ONCE [place] DAILY TO SETS PREVENT HCS STROKE/H EART ATTACK BISOPROLOL TAKE ONE ORAL 10/30/2022 [id number] HMED,MOH 10/29/ VA FUMARATE TABLET 2 AMMED 2021 CNTRL 5MG TAB BY MOUTH JAWED WSTRN TWICE [place] DAILY SETS HCS CITALOPRAM TAKE ONE ORAL ACTIVE 05/01/2023 [id number] Bertha PARIS 05/01/ VA HYDROBROMID TABLET 2 ACQUELYN 2021 CNTR L E 20MG TAB BY MOUTH WSTRN AT [place] BEDTIME SETS FOR HCS DEPRESSI ON AND ANXIETY CITALOPRAM TAKE ONE ORAL DISCONT 10/24/2022 [id number] Bertha LOVE 10/24/ VA HYDROBROMID TABLET INUED 2 ACQUELYN 2021 CNTR L E 20MG TAB BY MOUTH WSTRN AT [place] BEDTIME SETS FOR HCS DEPRESSI ON AND ANXIETY CITALOPRAM TAKE ORAL DISCONT 10/17/2022 [id number] Bertha SILVER 10/16/ VA HYDROBROMID ONE-HALF INUED 2 ACQUELYN 2021 CN TRL E 20MG TAB TABLET WSTRN BY MOUTH [place] AT SETS BEDTIME HCS FOR DEPRESSI ON AND ANXIETY COENZYME TAKE ONE ORAL ACTIVE SOPHDOTTIE, 06/27/ [place] Q10 CAP/TAB TABLET SIRISHA Gonzalez 2018 CNT RL BY MOUTH WSTRN ONCE [place] DAILY SETS NEEDED HCS DIGOXIN TAKE ONE ORAL ACTIVE 12/26/2022 [id number] [facility] 01/19/ VA 0.125MG TAB TABLET 2 AMMED 2021 CNTRL BY MOUTH JAWED WSTRN ONCE [place] DAILY SETS HCS DIGOXIN TAKE ONE ORAL DISCONT 04/15/2022 [id number] [facility] 05/04/ VA 0.125MG TAB TABLET INUED 2 AMMED 2020 CNTRL BY MOUTH JAWED WSTRN ONCE [place] DAILY SETS HCS ENOXAPARIN INJECT 1 SUBCUT ACTIVE 11/15/2022 [id number] MIRYAM MAYERS, 10/21/ [facility] 100MG/ML SYRINGE ANEOUS 3 RISTINE F 2022 ER V A INJ,[place] (100MG) CLINIC ,1ML SUBCUTAN (631GE) EOUSLY EVERY 12 HOURS TO PREVENT BLOOD CLOTS ENOXAPARIN INJECT 1 SUBCUT DISCONT 11/12/2022 [id number] [facility], 10/13/ [facility] 100MG/ML SYRINGE ANEOUS INUED 3 RISTINE F 2022 CNTR L INJ,SYRINGE (100MG) WSTRN ,1ML SUBCUTAN [place] EOUSLY SETS EVERY 12 HCS HOURS FERROUS TAKE ONE ORAL DISCONT 10/22/2022 [id number] [facility] 10/22/ VA GLUCONATE TABLET INUED 2 AMMED 2021 CNTRL 324MG TAB BY MOUTH JAWED WSTRN ONCE [place] DAILY TO SETS SUPPLEME HCS NT IRON FLUTICASONE INSTILL EACH 03/21/2022 [id number] [facility] VA PROPIONATE 1 SPRAY NOSTRI 2 AMMED 2020 CNTRL 50MCG/SPRAY INTO L JAWED WSTRN SOLN,NASAL, EACH [place] 16GM NOSTRIL SETS TWICE HCS DAILY FOR NASAL IRRITATI ON/INFLA MMATION LANSOPRAZOL TAKE ONE ORAL 10/30/2022 [id number] [facility] VA E 30MG CAPSULE 2 AMMED 2021 CNTRL CAP,EC BY MOUTH JAWED W[facility]N DAILY [place] [facility] [facility] LATANOPROST INSTILL EACH ACTIVE 04/08/2023 [id number] LALA HERNÁNDEZ,M 04/11/ [place] 0.005% 1 DROP EYE 2 ICHELE 2021 CNTRL SOLN,OPH INTO WSTRN EACH EYE [place] AT SETS BEDTIME HCS TO REDUCE PRESSURE IN THE EYE LATANOPROST INSTILL EACH DISCONT 10/01/2022 [id number] Rio KILLIAN,M [place] 0.005% 1 DROP EYE INUED 2 ICHELE 2021 CNTRL SOLN,OPH INTO WSTRN EACH EYE [place] AT SETS BEDTIME HCS TO REDUCE PRESSURE IN THE EYE LORATADINE TAKE ONE ORAL 10/31/2022 [id number] [facility] VA 10MG TAB TABLET 2 AM2021 CNTRL BY MOUTH JAWED WSTRN ONCE [place] DAILY SETS FOR HCS ALLERGY LORAZEPAM TAKE ONE ORAL ACTIVE 01/30/2023 [id number] Bertha SILVER VA 0.5MG TAB TABLET 2 ACQUELY2021 CNTRL BY MOUTH WSTRN TWICE [place] DAILY SETS NEEDED HCS FOR ANXIETY LORAZEPAM TAKE ONE ORAL DISCONT 10/25/2021 [id number] Bertha PARIS VA 0.5MG TAB TABLET INUED 2 ELY2020 CNTRL BY MOUTH WSTRN TWICE [place] DAILY SETS NEEDED HCS FOR ANXIETY/ NERVES LORAZEPAM TAKE ONE ORAL 05/01/2022 [id number] [facility] ,[facility] VA 0.5MG TAB TABLET 2 AMMED 2021 CNTRL BY MOUTH JAWED WSTRN TWICE [place] DAILY SETS NEEDED HCS FOR ANXIETY/ NERVES OXYCODONE TAKE 1 ORAL ACTIVE 11/06/2022 [id number] [facility] HCL TABLET 3 AM2022 CNTRL 5MG/ACETAMI BY MOUTH JAWED WSTRN NOPHEN EVERY 12 [place] 325MG TAB HOURS SETS NEEDED HCS FOR PAIN (NEXT FILL 11/23/22) OXYCODONE TAKE 1 ORAL DISCONT 10/18/2022 [id number] AHMED,MO H 09/21/ VA HCL TABLET INUED 3 AMMED 2022 CNTRL 5MG/ACETAMI BY MOUTH JAWED WSTRN NOPHEN EVERY 12 [place] 325MG TAB HOURS SETS NEEDED HCS FOR PAIN (NEXT FILL 10/26/22) OXYCODONE TAKE 1 ORAL DISCONT 09/27/2022 [id number] AHMED,MO H 08/28/ VA HCL TABLET INUED 3 AMMED 2022 CNTRL 5MG/ACETAMI BY MOUTH JAWED WSTRN NOPHEN EVERY 12 [place] 325MG TAB HOURS SETS NEEDED HCS FOR PAIN (NEXT FILL 09/28/22) OXYCODONE TAKE 1 ORAL DISCONT 09/06/2022 [id number] Charlene BLANC 08/07/ VA HCL TABLET INUED 2 VYN LILIANA 2021 CNTRL 5MG/ACETAMI BY MOUTH WSTRN NOPHEN EVERY 12 [place] 325MG TAB HOURS SETS NEEDED HCS FOR PAIN ROSUVASTATI TAKE ONE ORAL DISCONT 07/30/2022 [id number] [facility] 07/29/ VA N CA 20MG TABLET INUED 2 AMMED 2020 CNTRL TAB BY MOUTH JAWED WSTRN ONCE [place] DAILY SETS FOR HCS CHOLESTE ROL TAMSULOSIN TAKE ONE ORAL 10/18/2022 [id number] A ED,[facility] 10/30/ VA HCL 0.4MG CAPSULE 2 AMMED 2021 CNTRL CAP BY MOUTH JAWED WSTRN DAILY [place] [facility]CS VALSARTAN TAKE ONE ORAL DISCONT 12/26/2022 [id number] [facility] ,[facility] 01/12/ VA 40MG TAB TABLET INUED 2 AMMED 2021 CNTRL BY MOUTH (EDIT) JAWED WSTRN ONCE [place] DAILY SETS HCS VALSARTAN TAKE ONE ORAL DISCONT 04/15/2022 [id number] [facility], [facility] 09/13/ VA 40MG TAB TABLET INUED 2 AMMED 2020 CNTRL BY MOUTH JAWED WSTRN ONCE [place] DAILY SETS HCS VALSARTAN TAKE ONE ORAL ACTIVE 06/26/2023 [id number] Rio GROSS [place] 80MG TAB TABLET 3 AMMED 2021 CNTRL BY MOUTH JAWED WSTRN ONCE [place] DAILY SETS HCS WARFARIN NA TAKE ORAL ACTIVE 12/31/2022 [id number] KOSOF ZE, IN (VARGAS DIRECTED 3 SERA2022 CNTRL STATE) 5MG BY MOUTH WSTRN TAB WITH [place] DIRECTIO SETS NS HCS PROVIDED FROM YOUR IN PROVIDER ([facility] [phone] EXTENSIO N 2877) FOR THE PREVENTI ON OF BLOOD CLOTS WARFARIN NA TAKE ORAL DISCONT 09/27/2022 [id number] Charlene PHAN (VARGAS DIRECTED INUED 2 RISTIE 2021 CNTRL STATE) 5MG BY MOUTH WSTRN TAB WITH [place] DIRECTIO SETS NS HCS PROVIDED FROM YOUR IN PROVIDER ([facility] -[phone] EXTENSIO N 2877) FOR THE PREVENTI ON OF BLOOD CLOTS WARFARIN NA TAKE ORAL DISCONT 06/11/2022 [id number] [facility] (VARGAS DIRECTED INUED 2 SERA2021 CNTRL STATE) 5MG BY MOUTH WSTRN TAB WITH [place] DIRECTIO SETS NS HCS PROVIDED FROM YOUR IN PROVIDER ([facility] [phone] EXTENSIO N 2877) FOR THE PREVENTI ON OF BLOOD CLOTS WARFARIN NA TAKE ORAL DISCONT 02/15/2022 [id number] Charlene PHAN IN (VARGAS DIRECTED INUED 2 RISTIE J 2021 CNTRL STATE) 5MG BY MOUTH WSTRN TAB WITH [place] DIRECTIO SETS NS HCS PROVIDED FROM YOUR IN PROVIDER ([facility] -[phone] EXTENSIO N 2877) FOR THE PREVENTI ON OF BLOOD CLOTS WARFARIN NA TAKE ORAL DISCONT 11/09/2021 [id number] K MELINDA, 08/11/ VA (VARGAS DIRECTED INUED 1 SERA2020 CNTRL STATE) 5MG BY MOUTH WSTRN TAB WITH [place] DIRECTIO SETS NS HCS PROVIDED FROM YOUR [facility] PROVIDER [facility] N [facility]882) FOR THE PREVENTI ON OF BLOOD CLOTS ZOLPIDEM TAKE ONE ORAL ACTIVE 04/17/2023 [id number] Bertha SILVER 10/28/ VA TARTRATE TABLET 3 ACQUELY2022 CNTRL 10MG TAB BY MOUTH WSTRN AT [place] BEDTIME SETS HCS NEEDED FOR SLEEP ZOLPIDEM TAKE ONE ORAL DISCONT 10/31/2022 [id number] Bertha SILVER 05/06/ VA TARTRATE TABLET INUED 3 ACQUELY2021 CNTRL 10MG TAB BY MOUTH WSTRN AT [place] BEDTIME SETS HCS NEEDED FOR SLEEP ZOLPIDEM TAKE ONE ORAL DISCONT 07/19/2022 [id number] Bertha SILVER 01/20/ VA TARTRATE TABLET INUED 2 ACQU2021 CNTRL 10MG TAB BY MOUTH WSTRN AT [place] BEDTIME SETS HCS NEEDED SLEEP ZOLPIDEM TAKE ONE ORAL DISCONT 04/18/2022 [id number] Bertha SILVER 10/16/ VA TARTRATE TABLET INUED 2 ACQUELY2021 CNTRL 10MG TAB BY MOUTH WSTRN AT [place] BEDTIME SETS HCS NEEDED SLEEP ZOLPIDEM TAKE ONE ORAL DISCONT 01/07/2022 [id number] Bertha SILVER 07/09/ VA TARTRATE TABLET INUED 2 ACQUELY2020 CNTRL 10MG TAB BY MOUTH WSTRN AT [place] BEDTIME SETS HCS NEEDED SLEEP Allergies, Adverse Reactions, Alerts Combined list of allergies from Department of Defense and Veterans Affairs facilities. It does not include entries that were removed or entered in error. Substance Category Reaction Severity Reaction Status Date Comments S ource type Reported LOSARTAN Propensity active VA CNTRL to adverse 1 WSTRN reactions [place] to drug S HCS (finding) PRAVASTATIN Propensity active VA CNTRL to adverse 8 WSTRN reactions [place] to drug S HCS (finding) SIMVASTATIN Propensity active VA CNTRL to adverse 0 WSTRN reactions [place] to drug S HCS (finding) Immunizations Combined list of available immunizations from the Department of Defense and Veterans Affairs facilities. 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 INFLUENZA, complet VA UNSPECIFIED 2021 ed CN TRL FORMULATION [facility]N [place] [facility] INFLUENZA, complet VA UNSPECIFIED 2020 ed CN TRL FORMULATION WS [facility]N [place] [facility] [facility] COVID-19 2 complet MOD; VA (MODERNA), 2020 ed [id number]; CNTRL MRNA, LNP-S, 02 WSTRN PF, 100 1 [place] MCG/0.5 ML SET S DOSE HCS COVID-19 1 complet MOD; VA (MODERNA), 2020 ed [id number]; CNTRL MRNA, LNP-S, 02 WSTRN PF, 100 1 [place] MCG/0.5 ML SET S DOSE HCS INFLUENZA, complet VA UNSPECIFIED 2019 ed CN TRL FORMULATION WS TRN [place] [facility] INFLUENZA, complet Site: VA INJECTABLE, 2018 ed Right CN TRL QUADRIVALENT, Delto[place] d WSTRN PRESERVATIVE [facility] [place] FREE SETS HCS ZOSTER 2 complet VA RECOMBINANT 2018 ed CN TRL [facility] [place] [facility] [facility] ZOSTER 1 complet VA RECOMBINANT 2018 ed CN TRL [facility] [place] [facility] [facility] INFLUENZA, complet Site: VA SEASONAL, 2018 ed Left CNTR L INJECTABLE Deltoid W STRN [place] [facility] [facility] FLU,3 YRS complet Site: V A (HISTORICAL) 2016 ed Left C NTRL Deltoid [facility] [place] [facility] [facility] FLU,3 YRS complet Site: V A (HISTORICAL) 2015 ed Right C NTRL Deltoid [facility] [place] [facility] [facility] FLU,3 YRS complet Site: V A (HISTORICAL) 2014 ed Left C NTRL Deltoid [facility] [place] [facility] [facility] PNEUMOCOCCAL complet VA CONJUGATE PCV 2014 ed CNTRL 13 [facility] [place] [facility] [facility] FLU,3 YRS complet Site: V A (HISTORICAL) 2013 ed Left C NTRL Deltoid [facility] [place] [facility] [facility] FLU,3 YRS complet Site: V A (HISTORICAL) 2012 ed Left C NTRL Deltoid [facility] [place] [facility] [facility] DTAP, complet Site: VA UNSPECIFIED 2012 ed Left CN TRL FORMULATION Deltoid [facility] [place] [facility] [facility] FLU,3 YRS complet Site: V A (HISTORICAL) 2011 ed Right C NTRL Deltoid [facility] [place] [facility] [facility] ZOSTER LIVE 02/22/ CHINMAY REDDY 121 compl et VA 2011 ET M ed CNTRL [facility] [place] [facility] [facility] FLU,3 YRS complet Site: V A (HISTORICAL) 2010 ed Left C NTRL Deltoid [facility] [place] [facility] [facility] PNEUMOCOCCAL, complet Sit e: VA UNSPECIFIED 2010 ed Right CN TRL FORMULATION Deltoid [facility] [place] [facility] [facility] TD(ADULT) complet Site: V A UNSPECIFIED 2010 ed Left CN TRL FORMULATION Deltoid [facility] [place] [facility] [facility] FLU,3 YRS complet Site: V A (HISTORICAL) 2009 ed Left C NTRL Deltoid [facility] [place] [facility] [facility] FLU,3 YRS complet V A (HISTORICAL) 2009 ed C NTRL [facility] [place] [facility] FLU,3 YRS complet Site: V A (HISTORICAL) 2008 ed Right C NTRL Deltoid [facility] [place] [facility] [facility] FLU,3 YRS complet Site: V A (HISTORICAL) 2007 ed Left C NTRL Deltoid [facility] [place] [facility] [facility] FLU,3 YRS complet Site: V A (HISTORICAL) 2006 ed Right C NTRL Deltoid [facility] [place] [facility] [facility] FLU,3 YRS complet V A (HISTORICAL) 2005 ed C NTRL [facility] [place] [facility] FLU,3 YRS 07/24/ ARNAV DAWSON 88 complet VA (HISTORICAL) 2003 ed C NTRL [facility] [place] [facility] Results Combined list of recent chemistry, hematology and other laboratory results from Department of Defense and Veterans Affairs, ranging from 15 months to all on record, depending upon the facility. Order Results Value Reference Date Interpretation Specimen Commen ts Source Name Range ALCOHOL, ETHANOL NONE-DE - 10 10/02 Specimen Type: URINE [facility] CNTRL ETHYL [MASS/VOLU TECTED /2022 Comment: Uri ne with Cr <5 is diluted or substituted. Cr between 5 and 20 is very dilute. Urine with SG of 1.001 or less is diluted or substituted. SG of 1.003 or less is very dilute. Urine with WSTRN URINE ME] IN a pH <3 or >11 h as been adulterated and is unsuitable for testing by our current method. Urine with pH between 3 and 4 OR 10 and 11 may have been adulterated. [employer] Systems[employer] PANEL URINE Ordering Provid er: [facility] Report Released Date/Time: Sep 17, 2022 02:57 PM Reporting Lab: [facility] WSTRN [facility] [address] [address] Performing Lab: [facility] WSN [facility] [address] [address] ALCOHOL, PH OF 5.6 10/02 Specimen Type: URINE IN CNTRL ETHYL URINE /2022 Comment: Urine with Cr <5 is diluted or substituted. Cr between 5 and 20 is very dilute. Urine with SG of 1.001 or less is diluted or substituted. SG of 1.003 or less is very dilute. Urine with WSTRN URINE a pH <3 or >11 h as been adulterated and is unsuitable for testing by our current method. Urine with pH between 3 and 4 OR 10 and 11 may have been adulterated. [employer] Systems[employer] PANEL Ordering Provid er: [facility] Report Released Date/Time: Sep 17, 2022 02:57 PM Reporting Lab: [facility] WSTRN [facility] [address] [address] Performing Lab: [facility] [address] [address] ALCOHOL, CREATININE 67.17 20 10/02 Specimen Typ e: URINE [facility] CNTRL ETHYL [MASS/VOLU /2022 Comment: Uri ne with Cr <5 is diluted or substituted. Cr between 5 and 20 is very dilute. Urine with SG of 1.001 or less is diluted or substituted. SG of 1.003 or less is very dilute. Urine with WSTRN URINE ME] IN a pH <3 or >11 h as been adulterated and is unsuitable for testing by our current method. Urine with pH between 3 and 4 OR 10 and 11 may have been adulterated. [employer] PANEL URINE Ordering Provid er: [facility] Report Released Date/Time: Sep 17, 2022 02:57 PM Reporting Lab[facility] [address] [address] Performing Lab: [address] [address] ALCOHOL, SPECIFIC 1.012 1.003 - 10/02 Specimen Type: URINE [facility] ETHYL GRAVITY OF 1.020 /2022 Comment: Uri ne with Cr <5 is diluted or substituted. Cr between 5 and 20 is very dilute. Urine with SG of 1.001 or less is diluted or substituted. SG of 1.003 or less is very dilute. Urine with WSTRN URINE URINE a pH <3 or >11 h as been adulterated and is unsuitable for testing by our current method. Urine with pH between 3 and 4 OR 10 and 11 may have been adulterated. [employer] Systems[employer] PANEL Ordering Provid er: [facility] Report Released Date/Time: Sep 17, 2022 02:57 PM Reporting Lab[facility] [address] [address] Performing Lab: [facility] [address] [address] AMPHETAMI AMPHETAMIN NONE-DE - 1000 10/02 Specimen Ty pe: URINE IN CNTRL CATRACHITA ES TECTED /2022 Comment: Urine with Cr <5 is diluted or substituted. Cr between 5 and 20 is very dilute. Urine with SG of 1.001 or less is diluted or substituted. SG of 1.003 or less is very dilute. Urine with WSTRN SCREEN [PRESENCE] a pH <3 or >1 1 has been adulterated and is unsuitable for testing by our current method. Urine with pH between 3 and 4 OR 10 and 11 may have been adulterated. M[place] PANEL IN URINE Ordering Provi shannon: [facility] Report Released Date/Time: Sep 17, 2022 02:57 PM Reporting Lab: [facility] [address] [address] Performing Lab: IN CNTR WSTRN [address] [address] AMPHETAMI PH OF 5.6 4 - 10 10/02 Specimen Type: URINE VA CNTRL CATRACHITA URINE /2022 Comment: Urine with Cr <5 is diluted or substituted. Cr between 5 and 20 is very dilute. Urine with SG of 1.001 or less is diluted or substituted. SG of 1.003 or less is very dilute. Urine with WSTRN SCREEN a pH <3 or >11 h as been adulterated and is unsuitable for testing by our current method. Urine with pH between 3 and 4 OR 10 and 11 may have been adulterated. [place] PANEL Ordering Provid er: [facility] Report Released Date/Time: Sep 17, 2022 02:57 PM Reporting Lab: [facility] [id number] Performing Lab: [facility] [address] AMPHETAMI CREATININE 67.17 20 10/02 Specimen Ty pe: URINE [facility] [MASS/VOLU /2022 Comment: Uri ne with Cr <5 is diluted or substituted. Cr between 5 and 20 is very dilute. Urine with SG of 1.001 or less is diluted or substituted. SG of 1.003 or less is very dilute. Urine with WSTRN SCREEN ME] IN a pH <3 or >11 h as been adulterated and is unsuitable for testing by our current method. Urine with pH between 3 and 4 OR 10 and 11 may have been adulterated. MASSCHUSE PANEL URINE Ordering Provid er[facility] Report Released Date/Time: Sep 17, 2022 02:57 PM Reporting Lab: [facility] [address] [address] Performing Lab: [facility] [address] [address] AMPHETAMI SPECIFIC 1.012 1.003 - 10/02 Specimen Type : [facility] CAT[facility] GRAVITY OF 1.020 /2022 Comment: Uri ne with Cr <5 is diluted or substituted. Cr between 5 and 20 is very dilute. Urine with SG of 1.001 or less is diluted or substituted. SG of 1.003 or less is very dilute. Urine with WSTRN SCREEN URINE a pH <3 or >11 h as been adulterated and is unsuitable for testing by our current method. Urine with pH between 3 and 4 OR 10 and 11 may have been adulterated. MASSCHUSE PANEL Ordering Provid er: BOYD GROSS [facility] Report Released Date/Time: Sep 17, 2022 02:57 PM Reporting Lab: [facility] [address] [address] Performing Lab: [address] [address] BENZODIAZ BENZODIAZE NONE-DE - 200 10/02 Specimen Ty pe: URINE [facility] PINES TECTED /2022 Comment: Urine with Cr <5 is diluted or substituted. Cr between 5 and 20 is very dilute. Urine with SG of 1.001 or less is diluted or substituted. SG of 1.003 or less is very dilute. Urine with WSTRN SCREEN [PRESENCE] a pH <3 or >1 1 has been adulterated and is unsuitable for testing by our current method. Urine with pH between 3 and 4 OR 10 and 11 may have been adulterated. MASSCHUSE PANEL IN URINE Ordering Provi shannon: BOYD GROSS [facility] BY SCREEN Report Releas ed Date/Time: Sep 17, 2022 02:57 PM METHOD Reporting [facility] [address] [address] Performing Lab: [address] [address] BENZODIAZ PH OF 5.6 4 - 10 10/02 Specimen Type: URINE [facility] EPINES URINE /2022 Comment: Urine with Cr <5 is diluted or substituted. Cr between 5 and 20 is very dilute. Urine with SG of 1.001 or less is diluted or substituted. SG of 1.003 or less is very dilute. Urine with WSTRN SCREEN a pH <3 or >11 h as been adulterated and is unsuitable for testing by our current method. Urine with pH between 3 and 4 OR 10 and 11 may have been adulterated. D-Wave SystemsCHUSE PANEL Ordering Provid er: BO[facility]D [facility]OSS [facility] Report Released Date/Time: Sep 17, 2022 02:57 PM Reporting Lab: [facility] [address] [address] Performing [facility]: [facility] [address] [address] BENZODIAZ CREATININE 67.17 20 10/02 Specimen Ty pe: URINE [facility] EPINES [MASS/VOLU /2022 Comment: Uri ne with Cr <5 is diluted or substituted. Cr between 5 and 20 is very dilute. Urine with SG of 1.001 or less is diluted or substituted. SG of 1.003 or less is very dilute. Urine with WSTRN SCREEN ME] IN a pH <3 or >11 h as been adulterated and is unsuitable for testing by our current method. Urine with pH between 3 and 4 OR 10 and 11 may have been adulterated. BookmycabUSE PANEL URINE Ordering Provid er: BOYD GROSS [facility] Report Released Date/Time: Sep 17, 2022 02:57 PM Reporting Lab: [facility] [address] [address] Performing Lab: [facility] [address] [address] BENZODIAZ SPECIFIC 1.012 1.003 - 10/02 Specimen Type : URINE [facility] GRAVITY OF 1.020 Comment: Uri ne with Cr <5 is diluted or substituted. Cr between 5 and 20 is very dilute. Urine with SG of 1.001 or less is diluted or substituted. SG of 1.003 or less is very dilute. Urine with WSTRN SCREEN URINE a pH <3 or >11 h as been adulterated and is unsuitable for testing by our current method. Urine with pH between 3 and 4 OR 10 and 11 may have been adulterated. MASSCHUSE PANEL Ordering Provid er: BOYD GROSS [facility] Report Released Date/Time: Sep 17, 2022 02:57 PM Reporting Lab: [place] [facility] [facility] [address] [address] Performing Lab: [facility] [place] [facility] [address] [address] BUPRENORP BUPRENORPH NONE-DE 10/02 Specimen Ty pe: URINE IN CNTRL JAYCE INE TECTED /2022 Comment: Urine with Cr <5 is diluted or substituted. Cr between 5 and 20 is very dilute. Urine with SG of 1.001 or less is diluted or substituted. SG of 1.003 or less is very dilute. Urine with WSTRN SCREEN [PRESENCE] a pH <3 or >1 1 has been adulterated and is unsuitable for testing by our current method. Urine with pH between 3 and 4 OR 10 and 11 may have been adulterated. MASSCHUSE PANEL IN URINE Ordering Provi shannon: BOYD GROSS [facility] Report Released Date/Time: Sep 17, 2022 02:57 PM Reporting Lab: [facility] [place] [facility] [address] [address] Performing Lab: [facility] W[facility]N [facility] [address] [address] BUPRENORP PH OF 5.6 4 - 10 10/02 Specimen Type: URINE IN ISAEBLRL JAYCE URINE /2022 Comment: Urine with Cr <5 is diluted or substituted. Cr between 5 and 20 is very dilute. Urine with SG of 1.001 or less is diluted or substituted. SG of 1.003 or less is very dilute. Urine with WSTRN SCREEN a pH <3 or >11 h as been adulterated and is unsuitable for testing by our current method. Urine with pH between 3 and 4 OR 10 and 11 may have been adulterated. MASSCHUSE PANEL Ordering Provid er: BOYD GROSS [facility] Report Released Date/Time: Sep 17, 2022 02:57 PM Reporting Lab: [facility] [place] [address] [address] Performing Lab: [facility] [place] [address] [address] BUPRENORP CREATININE 67.17 20 10/02 Specimen Ty pe: URINE [facility] JAYCE [MASS/VOLU /2022 Comment: Uri ne with Cr <5 is diluted or substituted. Cr between 5 and 20 is very dilute. Urine with SG of 1.001 or less is diluted or substituted. SG of 1.003 or less is very dilute. Urine with WSTRN SCREEN ME] IN a pH <3 or >11 h as been adulterated and is unsuitable for testing by our current method. Urine with pH between 3 and 4 OR 10 and 11 may have been adulterated. [employer] PANEL URINE Ordering Provid er: [facility] Report Released Date/Time: Sep 17, 2022 02:57 PM Reporting Lab: [facility] [address] [address] Performing Lab: [facility] WSTRN [address] [address] BUPRENORP SPECIFIC 1.012 1.003 - 10/02 Specimen Type : URINE [facility] JAYCE GRAVITY OF 1.020 /2022 Comment: Uri ne with Cr <5 is diluted or substituted. Cr between 5 and 20 is very dilute. Urine with SG of 1.001 or less is diluted or substituted. SG of 1.003 or less is very dilute. Urine with WSTRN SCREEN URINE a pH <3 or >11 h as been adulterated and is unsuitable for testing by our current method. Urine with pH between 3 and 4 OR 10 and 11 may have been adulterated. D-Wave SystemsCHUSE PANEL Ordering Provid er: BOYD GROSS [facility] Report Released Date/Time: Sep 17, 2022 02:57 PM Reporting Lab: [facility] [address] Performing Lab: [facility] WSTRN [facility] [address] CANNABINO CANNABINOI NONE-DE - 50 10/02 Specimen Ty pe: URINE [facility] IDS DS TECTED /2022 Comment: Urine with Cr <5 is diluted or substituted. Cr between 5 and 20 is very dilute. Urine with SG of 1.001 or less is diluted or substituted. SG of 1.003 or less is very dilute. Urine with WSTRN SCREEN [PRESENCE] a pH <3 or >1 1 has been adulterated and is unsuitable for testing by our current method. Urine with pH between 3 and 4 OR 10 and 11 may have been adulterated. MASSCHUSE PANEL IN URINE Ordering Provi shannon: BOYD GROSS [facility] BY SCREEN Report Releas ed Date/Time: Sep 17, 2022 02:57 PM METHOD Reporting Lab: [facility] WSTRN [address] [address] Performing Lab: [facility] [address] [address] CANNABINO PH OF 5.6 4 - 10 10/02 Specimen Type: URINE [facility] IDS URINE /2022 Comment: Urine with Cr <5 is diluted or substituted. Cr between 5 and 20 is very dilute. Urine with SG of 1.001 or less is diluted or substituted. SG of 1.003 or less is very dilute. Urine with WSTRN SCREEN a pH <3 or >11 h as been adulterated and is unsuitable for testing by our current method. Urine with pH between 3 and 4 OR 10 and 11 may have been adulterated. MASSCHUSE PANEL Ordering Provid er: [facility] Report Released Date/Time: Sep 17, 2022 02:57 PM Reporting Lab: [facility] WSTRN [address] [address] Performing Lab: [facility] [address] [address] CANNABINO CREATININE 67.17 20 10/02 Specimen Ty pe: URINE IN CNT IDS [MASS/VOLU /2022 Comment: Uri ne with Cr <5 is diluted or substituted. Cr between 5 and 20 is very dilute. Urine with SG of 1.001 or less is diluted or substituted. SG of 1.003 or less is very dilute. Urine with WSTRN SCREEN ME] IN a pH <3 or >11 h as been adulterated and is unsuitable for testing by our current method. Urine with pH between 3 and 4 OR 10 and 11 may have been adulterated. MASSCHUSE PANEL URINE Ordering Provid er: BOYD GROSS [facility] Report Released Date/Time: Sep 17, 2022 02:57 PM Reporting Lab: [place] [facility] [place] [facility] [address] [address] Performing Lab: [facility] [facility] [address] [address] CANNABINO SPECIFIC 1.012 1.003 - 10/02 Specimen Type : URINE IN CNTRL IDS GRAVITY OF 1.020 /2022 Comment: Uri ne with Cr <5 is diluted or substituted. Cr between 5 and 20 is very dilute. Urine with SG of 1.001 or less is diluted or substituted. SG of 1.003 or less is very dilute. Urine with WSTRN SCREEN URINE a pH <3 or >11 h as been adulterated and is unsuitable for testing by our current method. Urine with pH between 3 and 4 OR 10 and 11 may have been adulterated. MASSCHUSE PANEL Ordering Provid er: BOYD GROSS [facility] Report Released Date/Time: Sep 17, 2022 02:57 PM Reporting Lab: [facility] [facility] [address] [address] Performing Lab: [facility] [place] [address] [address] COCAINE COCAINE NONE-DE - 300 10/02 Specimen Type: U RINE IN CNTRL SCREEN [PRESENCE] TECTED /2022 Comment: Uri ne with Cr <5 is diluted or substituted. Cr between 5 and 20 is very dilute. Urine with SG of 1.001 or less is diluted or substituted. SG of 1.003 or less is very dilute. Urine with WSTRN PANEL IN URINE a pH <3 or >11 has been adulterated and is unsuitable for testing by our current method. Urine with pH between 3 and 4 OR 10 and 11 may have been adulterated. M[place]CHUSE BY SCREEN Ordering Prov ider: BOYD GROSS [facility] METHOD Report Released Date/Time: Sep 17, 2022 02:57 PM Reporting Lab: [facility] [facility] [address] [address] Performing Lab: [place] [facility] [address] [address] COCAINE PH OF 5.6 4 - 10 10/02 Specimen Type: U MELODIEE [facility] SCREEN URINE /2022 Comment: Urine with Cr <5 is diluted or substituted. Cr between 5 and 20 is very dilute. Urine with SG of 1.001 or less is diluted or substituted. SG of 1.003 or less is very dilute. Urine with WSTRN PANEL a pH <3 or >11 h as been adulterated and is unsuitable for testing by our current method. Urine with pH between 3 and 4 OR 10 and 11 may have been adulterated. MASSCHUSE Ordering Provid er: BOYD GROSSJACQUELINE [facility] Report Released Date/Time: Sep 17, 2022 02:57 PM Reporting Lab: [facility] CN[facility]L WSTRN [address] [address] Performing Lab: [place] [employer] W[facility]N [facility] [address] COCAINE CREATININE 67.17 20 10/02 Specimen Type : URINE IN CNTRL SCREEN [MASS/VOLU /2022 Comment: Uri ne with Cr <5 is diluted or substituted. Cr between 5 and 20 is very dilute. Urine with SG of 1.001 or less is diluted or substituted. SG of 1.003 or less is very dilute. Urine with WSTRN PANEL ME] IN a pH <3 or >11 h as been adulterated and is unsuitable for testing by our current method. Urine with pH between 3 and 4 OR 10 and 11 may have been adulterated. BookmycabUSE URINE Ordering Provid er: BO[facility]D GROSS [facility] Report Released Date/Time: Sep 17, 2022 02:57 PM Reporting Lab: IN CNTRL WSTRN [employer] SystemsUSE[address] [address] Performing Lab: [facility] CN[facility]L WSTRN [facility] [address] [address] COCAINE SPECIFIC 1.012 1.003 - 10/02 Specimen Type: URINE IN CNTRL SCREEN GRAVITY OF 1.020 /2022 Comment: Uri ne with Cr <5 is diluted or substituted. Cr between 5 and 20 is very dilute. Urine with SG of 1.001 or less is diluted or substituted. SG of 1.003 or less is very dilute. Urine with WSTRN PANEL URINE a pH <3 or >11 h as been adulterated and is unsuitable for testing by our current method. Urine with pH between 3 and 4 OR 10 and 11 may have been adulterated. MASSCHUSE Ordering Provid er: BOYD GROSS [facility] Report Released Date/Time: Sep 17, 2022 02:57 PM Reporting Lab: [facility]N [place] [facility] [address] [address] Performing Lab: [facility] WSTRN [facility] [address] [address] ETG ETHYL SCREEN 10/02 H Specimen Type: U RINE IN CNTR SCREEN GLUCURONID POS /2022 Comment: CHRISTINE test are qualitative, any L or H flags only indicate a [facility] alert was sent. This ETG test was developed and its performance characteristics determined by [place] clinical lab. The [place] Food and Cipriano WSTRN (wx) E g Administration has not approved or cleared this test, FDA clearance or approval is not currently required for clinical use. ETG cutoff 500 ng/mL CHRISTINE Screens are for medical purposes. For confirmation use CHRISTINE Confirmation Add on Menu in CPRS. MASSCHUSE [PRESENCE] Ordering Pro vider: BOYD GROSS PAR[facility]ACQUELINE [facility] IN URINE Report Release d Date/Time: Sep 17, 2022 02:57 PM BY SCREEN Reporting Lab : [facility] [place] [facility] METHOD [address] [address] Performing Lab: [facility]N [place] [facility] [address] [facility] [address] FENTANYL FENTANYL NONE-DE 10/02 Specimen Type: URINE IN CNTRL SCREEN [PRESENCE] TECTED /2022 Comment: Uri ne with Cr <5 is diluted or substituted. Cr between 5 and 20 is very dilute. Urine with SG of 1.001 or less is diluted or substituted. SG of 1.003 or less is very dilute. Urine with WSTRN PANEL IN URINE a pH <3 or >11 has been adulterated and is unsuitable for testing by our current method. Urine with pH between 3 and 4 OR 10 and 11 may have been adulterated. FENTANYL CONFIRMATION NOT SENT BY LAB. [place] BY SCREEN Ordering Prov ider: BOYD GROSS RAKEL [facility] METHOD Report Released Date/Time: Sep 17, 2022 02:57 PM Reporting Lab: [facility] [place] [address] [address] Performing Lab: [facility]N [facility] [address] [address] FENTANYL PH OF 5.6 4 - 10 10/02 Specimen Type: URINE [facility] SCREEN URINE /2022 Comment: Urine with Cr <5 is diluted or substituted. Cr between 5 and 20 is very dilute. Urine with SG of 1.001 or less is diluted or substituted. SG of 1.003 or less is very dilute. Urine with WSTRN PANEL a pH <3 or >11 h as been adulterated and is unsuitable for testing by our current method. Urine with pH between 3 and 4 OR 10 and 11 may have been adulterated. FENTANYL CONFIRMATION NOT SENT BY LAB. MASSCHUSE Ordering Provid er: BOYD GROSS [facility] Report Released Date/Time: Sep 17, 2022 02:57 PM Reporting Lab: [facility] [address] [address] Performing Lab: IN CN[facility]L W[facility]N [facility] [address] FENTANYL CREATININE 66.53 20 10/02 Specimen Typ e: URINE [facility] SCREEN [MASS/VOLU /2022 Comment: Uri ne with Cr <5 is diluted or substituted. Cr between 5 and 20 is very dilute. Urine with SG of 1.001 or less is diluted or substituted. SG of 1.003 or less is very dilute. Urine with WSTRN PANEL ME] IN a pH <3 or >11 h as been adulterated and is unsuitable for testing by our current method. Urine with pH between 3 and 4 OR 10 and 11 may have been adulterated. FENTANYL CONFIRMATION NOT SENT BY LAB. MASSCHUSE URINE Ordering Provid er: BOYD GROSS [facility] Report Released Date/Time: Sep 17, 2022 02:57 PM Reporting Lab: [facility] [place] [address] [address] Performing Lab: IN [facility] W[facility]N [facility] [address] FENTANYL SPECIFIC 1.012 1.003 - 10/02 Specimen Type: URINE [facility] SCREEN GRAVITY OF 1.020 /2022 Comment: Uri ne with Cr <5 is diluted or substituted. Cr between 5 and 20 is very dilute. Urine with SG of 1.001 or less is diluted or substituted. SG of 1.003 or less is very dilute. Urine with WSTRN PANEL URINE a pH <3 or >11 h as been adulterated and is unsuitable for testing by our current method. Urine with pH between 3 and 4 OR 10 and 11 may have been adulterated. FENTANYL CONFIRMATION NOT SENT BY LAB. MASSCHUSE Ordering Provid er: BOYD GROSS [facility] Report Released Date/Time: Sep 17, 2022 02:57 PM Reporting Lab: [place] [facility] [place] [facility] [address] [address] Performing Lab: IN CNTRL WSTRN [facility] SystemsCHUSETS [facility] [address] [address] METHADONE METHADONE None 10/02 L Specimen Typ e: URINE IN CNTRL SCREEN [PRESENCE] detecte /2022 Comment: CHRISTINE test are qualitative, any L or H flags only indicate a [facility] alert was sent. WSTRN IN URINE d(Negat Ordering Provi shannon: BOYD GROSS [place] BY SCREEN pierre) Report Releas ed Date/Time: Sep 17, 2022 02:57 PM [facility] METHOD Reporting Lab: [place] CNTRL [place] [facility] [address] [address] Performing Lab: [place] CN[facility]L [place] [facility] [address] [facility] [address] OPIATES OPIATES NONE-DE - 300 10/02 Specimen Type: U RINE [facility] SCREEN [PRESENCE] TECTED /2022 Comment: Uri ne with Cr <5 is diluted or substituted. Cr between 5 and 20 is very dilute. Urine with SG of 1.001 or less is diluted or substituted. SG of 1.003 or less is very dilute. Urine with WSTRN PANEL IN URINE a pH <3 or >11 has been adulterated and is unsuitable for testing by our current method. Urine with pH between 3 and 4 OR 10 and 11 may have been adulterated. MASSCH[place] BY SCREEN Ordering Prov ider: BOYD GROSS [facility] METHOD Report Released Date/Time: Sep 17, 2022 02:57 PM Reporting Lab: [facility] [address] [address] Performing Lab: [facility] [address] [address] OPIATES PH OF 5.6 4 - 10 10/02 Specimen Type: U RINE [facility] SCREEN URINE /2022 Comment: Urine with Cr <5 is diluted or substituted. Cr between 5 and 20 is very dilute. Urine with SG of 1.001 or less is diluted or substituted. SG of 1.003 or less is very dilute. Urine with WSTRN PANEL a pH <3 or >11 h as been adulterated and is unsuitable for testing by our current method. Urine with pH between 3 and 4 OR 10 and 11 may have been adulterated. MASSCHUSE Ordering Provid er: BOYD GROSS [facility] Report Released Date/Time: Sep 17, 2022 02:57 PM Reporting Lab: [facility] [place] [address] [address] Performing Lab: [facility] [address] [address] OPIATES CREATININE 67.17 20 10/02 Specimen Type : URINE [facility] SCREEN [MASS/VOLU /2022 Comment: Uri ne with Cr <5 is diluted or substituted. Cr between 5 and 20 is very dilute. Urine with SG of 1.001 or less is diluted or substituted. SG of 1.003 or less is very dilute. Urine with WSTRN PANEL ME] IN a pH <3 or >11 h as been adulterated and is unsuitable for testing by our current method. Urine with pH between 3 and 4 OR 10 and 11 may have been adulterated. MASSCHUSE URINE Ordering Provid er: BOYD GROSS [facility] Report Released Date/Time: Sep 17, 2022 02:57 PM Reporting Lab: [facility] [address] [address] Performing Lab: IN CN[facility]L WSTRN [facility] [address] [address] OPIATES SPECIFIC 1.012 1.003 - 10/02 Specimen Type: URINE [facility] SCREEN GRAVITY OF 1.020 /2022 Comment: Uri ne with Cr <5 is diluted or substituted. Cr between 5 and 20 is very dilute. Urine with SG of 1.001 or less is diluted or substituted. SG of 1.003 or less is very dilute. Urine with WSTRN PANEL URINE a pH <3 or >11 h as been adulterated and is unsuitable for testing by our current method. Urine with pH between 3 and 4 OR 10 and 11 may have been adulterated. MASSCHUSE Ordering Provid er: BOYD GROSS [facility] Report Released Date/Time: Sep 17, 2022 02:57 PM Reporting Lab: [facility] WSTRN [facility] [address] [address] Performing Lab: [place] CNTR [place]STRN [place] [facility] [address] [address] Vital Signs Combined list of inpatient and outpatient Vital Signs from Department of Defense and Veterans Affairs, ranging from 12 months to all on record, depending upon the facility. Vital Sign Value Date Comments Source SYSTOLIC BLOOD PRESSURE 140 06/25/2022 [facility] 12:47:48 [place] [facility] DIASTOLIC BLOOD PRESSURE 70 06/25/2022 [facility] 12:47:48 [place] [facility] PULSE OXIMETRY 98% 06/25/2022 [facility] N 12:47:48 [place] [facility] WEIGHT 217.8 06/25/2022 [facility] 12:47:48 [place] [facility] BMI 30kg/m2 06/25/2022 [facility] 12:47:48 [place] [facility] PAIN 4 06/25/2022 [facility] 12:47:[facility] [place] [facility] TEMPERATURE 97.9 06/25/2022 [facility] 12:47:48 [place] [facility] PULSE 67 06/25/2022 [facility] 12:47:48 [place] [facility] RESPIRATION 16 06/25/2022 [facility] 12:47:48 [place] [facility] SYSTOLIC BLOOD PRESSURE 168 12/25/2021 [facility] 14:51:06 [place] [facility] DIASTOLIC BLOOD PRESSURE 75 12/25/2021 [facility] 14:51:[facility] [place] [facility] PULSE OXIMETRY 96% 12/25/2021 [facility] 14:51:[facility] [place] [facility] WEIGHT 217 12/25/2021 [facility] 14:51:[facility] [place] [facility] BMI 29kg/m2 12/25/2021 [facility] 14:51:[facility] [place] [facility] PAIN 0 12/25/2021 [facility] 14:51:[facility] [place] [facility] TEMPERATURE 98.1 12/25/2021 [facility] 14:51:[facility] [place] [facility] PULSE 67 12/25/2021 [facility] 14:51:[facility] [place] [facility] RESPIRATION 16 12/25/2021 [facility] 14:[facility] [place] [facility] Encounters Combined list of: 1) Encounters from Department of Veterans Affairs facilities going back up to the last 18 months. 2) Encounters from the Department of Defense facilities going back up to 280 months. Location Location Encounter Encounter Reason Attending ADM DC Stat us Disposition Source Details Type Number For Provider Date Date Visit HC PRO 45088-9.63 Diagnos SUZIE KEENAN 05/08 V A PHONE CALL [id number] is: TERRIE A CN TRL 5-10 MIN ICD-10- WSTRN CM [place] Z79.01 SETS Long HCS term (curren t) use of anticoa gulants
wi th Provide r Comment s: Recreational Aide Current Use of Anticoa gulants REPAIR & 80107-0.63 Diagnos DEVI GOLDBERG 05/21 [facility] AD[facility] [id number] is: IMRELLA ARNAV CNTRL SPECTACLES ICD-10- WSTRN CM [place] Z46.0 SETS [facility] er for fit/adj st of spectac les and contact lenses< br/>wit h Provide r Comment s: Encount er for Fitting and Adjustm ent of Spectac les and Contact Lenses HC PRO 51262-6.63 Diagnos ASTON FANG 05/21 S PRINGF PHONE CALL [phone] is: IE IELD 5-10 MIN 95 ICD-10- CM Z51.81 Encount er for therape utic drug level monitor ing<br/ >with Provide r Comment s: Therape utic Drug Level Monitor ing Outpatient 42674-7.63 05/29 [facility] [id number] [facility] Out[facility] 43369-6.63 05/29 [facility] Encounter [id number] [facility] HC PRO 54761-1.63 Diagnos KEENAN, 06/05 V A PHONE CALL [phone] is: ABELA CN TRL 5-10 MIN ICD-10- W[facility]N CM [place] Z79.01 SETS Long HCS term (curren t) use of anticoa gulants
wi th Provide r Comment s: Recreational Aide Current Use of Anticoa gulants HC PRO 81696-2.63 Maureen KEENAN, 06/19 V A PHONE CALL [phone] is: ABELA CN TRL 5-10 MIN ICD-10- [facility]N CM [place] Z51.81 SETS Encount [facility] er for therape utic drug level monitor ing<br/ >with Provide r Comment s: Therape utic Drug Level Monitor ing HEARING 81586-9.63 Diagnos ARI-MCLA 06/24 [facility] AID EXAM 1.55295483 is: CHRIS, C NTRL BOTH EARS ICD-10- MARY LOU [facility] [place] H90.3 SETS [facility] neural hearing loss, bilater al
with Provide r Comment s: Sensori neural Hearing Loss, Bilater al Outpatient 65488-6.63 07/02 [facility] Encounter [id number] [facility] Outpatient 61770-7.63 07/08 [facility] Encounter [id number] [facility] Outpatient 24888-2.63 07/08 [facility] Encounter [id number] [facility] Outpatient 95028-6.63 07/09 [facility] Encounter [id number] /2021 [facility] CONFORMITY 32419-1.63 Diagnos ISIDRO,C 07/23 [facility] EVALUATION 1.67316052 is: FILI E CNTR L ICD-10- W[facility]N CM [place] Z46.1 SETS Encount HCS er for fitting and adjustm ent of hearing aid<br/ >with Provide r Comment s: Encount er for Fitting and Adjustm ent of Hearing Aid HC PRO 68181-8.63 Diagnos LEONCIO,ASTON 07/23 S PRINGF PHONE CALL [phone] is: IE IELD 5-10 MIN 51 ICD-10- CM Z51.81 Encount er for therape utic drug level monitor ing<br/ >with Provide r Comment s: Therape utic Drug Level Monitor ing Outpatient 88595-8.63 07/25 [facility] Encounter [id number] [facility] Outpatient 91738-3.63 KAYCE TORRES 07/29 [facility] Encounter [id number] NON P [facility] Outpatient 02380-3.63 07/31 [facility] Encounter [id number] /2021 [facility] OFFICE O/P 87571-5.63 Diagnos FERNANDO,Xander 08/07 [place] 1.69901031 is: CARLOS CNTRL 60-74 MIN ICD-10- [facility] CM [place] 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, lumbosa cr region< br/>wit h Provide r Comment s: 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, Lumbosa cral Region Outpatient 23614-6.63 08/07 [facility] Encounter [id number] /2021 [facility] Outpatient 61955-8.63 08/18 [facility] Encounter [id number] /2021 [facility] HC PRO 55346-0.63 Diagnos JANHELADIO,KR 08/25 F ITCHBU PHONE CALL [phone] is: SERGE J RG CBOC 5-10 MIN 01 ICD-10- CM Z51.81 Encount er for therape utic drug level monitor ing<br/ >with Provide r Comment s: Therape utic Drug Level Monitor ing Outpatient 99792-6.63 08/28 [facility] Encounter [id number] [facility] Outpatient 91171-7.63 09/09 [facility] Encounter [id number] [facility] OFFICE O/P 93062-4.63 Diagnos RENATO,[facility] 09/16 VA EST MOD 1.39391546 is: MMED JAWED CN TRL 30-39 MIN ICD-10- [facility] [place] I50.22 SETS Chronic HCS systoli c (conges tive) heart failure
Provide r Comment s: Congest pierre heart failure (SCT 1114748 7) POS AIRWAY 44951-2.[address] 09/18 [facility] PRESSURE 1.42961931 is: AMANT, C NTRL FILTER ICD-10- E P [facility] CM [place] G47.30 SETS Sleep HCS apnea, unspeci fied
with Provide r Comment s: Sleep Apnea, unspeci fied HC PRO 34475-6.63 Diagnos ADONIS MUKHERJEE 09/22 F ITCHBU PHONE CALL [phone] is: ISTIE J RG CBOC 5-10 MIN 10 ICD-10- CM Z51.81 Encount er for therape utic drug level monitor ing<br/ >with Provide r Comment s: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
--- OUTSIDE RECORDS SUMMARY | 2022-11-03 05:32 | XMS_ITS | Encounter Summary ---
:1945 Author Organization [facility] rs Address [address] [place] [address] Support Name Relationship Address Phone EJ SCHULTE Unavailable [address] [place] [address] EJ SCHULTE Unavailable [address] [place] [address] Insurance Providers: All historical and current Section Date Range: From patient's date of to the date document was created.This section includes the names of all active insurance providers for the patient. Insurance Type of Plan Start of End of Group Member Insurance Policy P atient's Provider Coverage Name Policy Policy Number ID Provider's Spann's Relationship Coverage Coverage Telephone Name to Policy Number Spann WILVER PRESCRIPT [facility] Aug 23, [id number] [phone] POLY NIELSON,J PATIENT ION 2015 7 3 JUSTIN GEHA FEHB PREFERRED [facility] Aug 23, [id number] [phone] Bertha RICHARDSON PATIENT PROVIDER AL 2012 ALTH 7 136 JUSTIN ORGANIZAT GOV ION (PPO) GEHA FEHB PREFERRED GEHA Aug 23, [id number] [phone] AKUA LIZETT,J PATIENT PROVIDER DAVID 2012 2 7 136 JUSTIN ORGANIZAT CTION ION (PPO) DENT MEDICARE MEDICARE PART Sep 23, PART A [id number] Bertha FENG PATIENT (WNR) (M) A 2010 [id number] 2 JUSTIN MEDICARE MEDICARE PART Sep 23, PART B [id number] Bertha FENG PATIENT (WNR) (M) B 2010 [id number] 2 JUSTIN Selected Encounter This section includes the information on record at [place] for the Encounter. Date/Time Encounter Type Encounter Description Reason Provider Source Nov 11, 2021 01:15 Outpatient Encounter PRIMARY CARE/MEDICINE PM IHE Encounter Template Text not used by [place] Plan of Treatment: Future Appointments (+ 6 months) and Future Tests (+/- 45 days) The Plan of Treatment section includes future care activities for the patient from all [place] treatmentfacilities. This section includes future appointments and future orders which are active, pending orscheduled.Future Appointments This section includes appointments that were scheduled to occur 6 months from the date of the Encounter, up to a maximum of 20 appointments. The data comes from all [place] treatment facilities. Appointment Date/Time Appointment Type Appointment Facili ty Name December 25, 2021 03:00 PM AMBULATORY - MEDICINE [place] [facility] [place] [facility] January 13, 2022 02:00 PM AMBULATORY MEDICINE [place] [facility] [place] [facility] Feb 16, 2022 01:00 PM AMBULATORY - MEDICINE [place] [facility] [place] [facility] Apr 07, 2022 01:00 PM AMBULATORY - MEDICINE [place] [facility] [place] [facility] Apr 07, 2022 01:30 PM AMBULATORY - MEDICINE [place] [facility] [place] [facility] Apr 15, 2022 02:30 PM AMBULATORY - MEDICINE [place] [facility] [place] [facility] Apr 30, 2022 01:00 PM [facility] [place] [facility] Lab Results: +/- 30 days of the encounter This section includes the Chemistry and Hematology Lab Results on record with [place] for the patient. Radiology Reports and Pathology Reports are provided separately, in subsequent sections.Lab Results This section contains the Chemistry/Hematology Results that were resulted 30 days before or 30 daysafter the date of the Encounter. Date/Time Source Result Type Result - Unit Interpretation Reference Range Comment Dec 01, 2021 01:36 [place] [facility] PT & INR (COUMADIN) Specimen Type: PLASMA PM [place] [facility] No comment enter ed. Ordering Provid er: MARQUES CHOWDHURY Report Released Date/Time: Nov 17, 2021 05:15 PM Reporting Lab: [facility] [address] [address] Performing Lab: [facility] [address] [facility] [address] INR 1.9 PROTIME 21.7 H 10.0-13.1 Nov 17, 2021 02:18 [facility] CBC AND DIFF Specimen Typ e: BLOOD PM [facility] (AUTO) No comment enter ed. Ordering Provid er: BOYD GROSS Report Released Date/Time: Sep 25, 2021 08:37 PM Reporting Lab: [facility] [address] [facility] [address] Performing Lab: [facility] [address] [facility] [address] WBC 6.34 4.50-11.00 RBC 4.05 L 4.23-5.66 HGB 12.0 L 12.8-17 HCT 36.6 L 39.2-50.4 MCV 90.4 82-99 MCHC 32.8 30.8-35.1 PLT 223 140-360 RDW-CV 14.3 12.0-16.0 [place], Abs 0.60 0.30-1.10 MCH 29.6 26.2-32.6 Neut % 70.7 Lymph % 15.3 Louis[place] % 9.5 Eos % 3.3 Baso % 0.9 Neut, Abs 4.48 2.20-7.60 Lymph, Abs 0.97 L 1.00-3.20 Eos, Abs 0.21 0.03-0.44 Baso, Abs 0.06 0.01-0.13 Immature Gran % 0.3 Immature Gran, Abs 0.02 0.00-0.06 Nov 17, 2021 [facility] WSTRN PT & INR (COUMADIN) Specimen Ty pe: PLASMA 02:17 PM [facility] No comment enter ed. Ordering Provid er: REMINGTON MUKHERJEE Report Released Date/Time: Oct 20, 2021 03:30 PM Reporting Lab: [facility] [address] [facility] [address] Performing Lab: [facility] [address] [facility] [address] INR 1.6 PROTIME 18.1 H 10.0-13.1 Oct 31, 2021 12:00 [facility] OCCULT BLOOD FIT Specimen Ty pe: FECES AM [place] [facility] X1 SCREEN Comment: H* IND ICATES A VA ALERT HAS BEEN SENT Ordering Provid er: BOYD GROSS Report Released Date/Time: Oct 30, 2021 03:12 PM Reporting Lab: [facility] [place] [facility] [address] [facility] [address] Performing Lab: [place] [facility] [place] [facility] [address] [facility] [employer] [address] OCCULT BLOOD (FIT)#1 OF 1 Negative NEG Oct 20, 2021 01:52 [place] CN[facility]L W[facility]N CBC AND DIFF Specimen Typ e: BLOOD PM [facility] (AUTO) No comment enter ed. Ordering Provid er: BOYD GROSS Report Released Date/Time: Sep 16, 2021 01:29 PM Reporting Lab: [place] CNTR [place] [facility] [address] [facility] [address] Performing Lab: [place] [facility] [place] [facility] [address] [facility] [address] WBC 5.87 4.50-11.00 RBC 4.01 L 4.23-5.66 HGB 11.5 L 12.8-17 HCT 36.1 L 39.2-50.4 MCV 90.0 82-99 MCHC 31.9 30.8-35.1 PLT 232 140-360 RDW-CV 14.0 12.0-16.0 [place]a, Abs 0.66 0.30-1.10 MCH 28.7 26.2-32.6 Neut % 66.7 Lymph % 16.9 Louisa % 11.2 Eos % 3.9 Baso % 1.0 Neut, Abs 3.91 2.20-7.60 Lymph, Abs 0.99 L 1.00-3.20 Eos, Abs 0.23 0.03-0.44 Baso, Abs 0.06 0.01-0.13 Immature Gran % 0.3 Immature Gran, Abs 0.02 0.00-0.06 Oct 20, 2021 [place] [facility] PT & INR (COUMADIN) Specimen Ty pe: PLASMA 01:51 PM [facility] No comment enter ed. Ordering Provid er: REMINGTON MUKHERJEE Report Released Date/Time: Sep 22, 2021 02:54 PM Reporting Lab: [place] [facility] [place] [facility] [address] [facility] [address] Performing Lab: [place] CN[facility]L WSTRN [facility] [address] [facility] [address] INR 2.0 PROTIME 22.1 H 10.0-13.1 Social History: Smoking Status (Most current) and Tobacco Use (All prior to encounter date) This section includes the most current, and the historical, smoking and tobacco-related health factors from the [place] facility where the Encounter took place.Current Smoking Status This section includes the most current smoking, or tobacco-related health factor, from the [place] facility where the Encounter took place. Date/Time Current Smoking Status Comment Facility Mar 20, 2021 01:00 PM VA-TOBACCO FORMER USER IN CNTRL WSTRN [facility] Tobacco Use History This section includes a history of the smoking, or tobacco- related health factors, that were collected on or before the date of the Encounter. The data comes from the [place] facility where the Encounter took place. Date/Time Smoking Status/Tobacco Comment Facility Use Mar 20, 2021 01:00 VA-TOBACCO QUIT 15 YRS OR VA CNTRL [facility] PM MORE [place] [facility] January 17, 2020 11:33 VA-TOBACCO FORMER USER VA CNT RL [facility] AM [place] [facility] January 17, 2020 11:33 VA-TOBACCO QUIT 15 YRS OR VA CNTRL [facility] AM MORE [place] [facility] Nov 23, 2018 01:22 VA-TOBACCO FORMER USER VA CNT RL [facility] PM [place] [facility] Nov 23, 2018 01:22 VA-TOBACCO QUIT 15 YRS OR VA CNTR[facility] PM MORE [place] [facility] January 18, 2018 12:53 QUIT TOBACCO USE 1-7 VA CNTRL W[facility] PM YEARS AGO PT STATES HE STOPP 4 YR AGO [place] [facility] Dec 09, 2016 01:07 QUIT TOBACCO USE > 7 VA CNTRL [facility] PM YEARS AGO [place] [facility] Nov 11, 2015 01:13 QUIT TOBACCO USE > 7 VA CN[facility] PM YEARS AGO [place] [facility] Nov 19, 2004 03:17 HISTORY OF SMOKING VA [facility] PM quit 30 yrs ago [place] [facility] Aug 10, 2003 01:03 HISTORY OF SMOKING [facility] PM [place] [facility] Apr 12, 2002 02:36 QUIT TOBACCO USE > 7 VA CNTRL [facility] PM YEARS AGO [place] [facility] Encounter Notes: All associated encounter notes This section contains the clinical notes associated to the Encounter. Date/Time Encounter Note(s) Provider Source Nov 11, 2021 01:15 LETTERS: BOYD GROSS [facility] N PM LOCAL TITLE: PATIENT LETTER (T) PARIJACQUELINE [place] [facility] STANDARD TITLE: LETTERS DATE OF NOTE: NOV 11, 2021@13:15 ENTRY DATE: NOV 11, 2021@13:15:49 AUTHOR: BOYD GROSS EXP COSIGNER: URGENCY: STATUS: COMPLETED DEPARTMENT OF [facility] Toll Free Number Primary Care Telephone Assistance can be reached at extension [phone] [facility] scheduling can be reac hed at extension [phone] [employer] [facility] scheduling can be akua ched at ext [phone] KAMLA SCHULTE [address] [place], [place], [address] Dear [place], Primary care team reviewed your recent tests. Hemoccult was negative This is a copy for your own information and also to share with any other provider involved in your care. Sincerely, Your Primary Care Team [facility] [address] [facility] [address] [place] [address] [place] [address] [phone] [facility] [address] [place] [address] [place] [address] [phone] [facility] [address] [facility] [address] [place] [address] [place] [address] [phone]
--- OUTSIDE RECORDS SUMMARY | 2022-11-03 05:32 | XMS_ITS | Encounter Summary ---
:1945 Author Organization [facility] rs Address [address] [place] [address] Support Name Relationship Address Phone EJ SCHULTE Unavailable [address] [place] [address] JE SCHULTE Unavailable [address] [place] [address] Insurance Providers: All historical and current Section [...] Name to Policy Number Spann WILVER PRESCRIPT [facility] Aug 23, [id number] [phone] POLY NIELSON,J PATIENT ION 2015 7 3 JUSTIN GEHA [facility]HB [facility] Aug 23, [id number] [phone] Bertha RICHARDSON PATIENT PROVIDER AL 2012 ALTH 7 136 JUSTIN ORGANIZAT GOV ION (PPO) GEHA FEHB PREFERRED GEHA Aug 23, [id number] [phone] AKUA LIZETT,J PATIENT PROVIDER DAIVD 2012 2 7 136 JUSTIN ORGANIZAT CTION ION (PPO) DENT MEDICARE MEDICARE PART Sep 23, PART B [id number] Bertha FENG PATIENT (WNR) (M) B 2010 [id number] 2 JUSTIN MEDICARE MEDICARE PART Sep 23, PART A [id number] Bertha FENG PATIENT (WNR) (M) A 2010 [id number] 2 JUSTIN Selected Encounter This section includes the information on record at [place] for the Encounter. Date/Time Encounter Type Encounter Description Reason Provider Source Nov 17, 2021 03:06 Outpatient Encounter PRIMARY CARE/MEDICINE PM IHE Encounter Template Text not used by [place] Plan of Treatment: Future Appointments (+ 6 months) and Future Tests (+/- 45 days) The Plan of Treatment section includes future care activities for the patient from all [place] treatmentfacilities. This section includes future appointments and future orders which are active, pending orscheduled.Future Appointments This section includes appointments that were scheduled to occur 6 months from the date of the Encounter, up to a maximum of 20 appointments. The data comes from all [place] treatment facilities. Appointment Date/Time Appointment Type Appointment Facili ty Name December 25, 2021 03:00 PM AMBULATORY - MEDICINE [place] [facility] [place] [facility] January 13, 2022 02:00 PM AMBULATORY MEDICINE [place] [facility] [place] [facility] Feb 16, 2022 01:00 PM AMBULATORY - MEDICINE [place] [facility] [place] [facility] Apr 07, 2022 01:00 PM AMBULATORY - MEDICINE [place] [facility] [place] [facility] Apr 07, 2022 01:30 PM AMBULATORY - MEDICINE [place] [facility] [place] [facility] Apr 15, 2022 02:30 PM AMBULATORY - MEDICINE [place] [facility] [place] [facility] Apr 30, 2022 01:00 PM AMBULATORY - PSYCHIATRY [place] CNTR [place]N [place] [facility] Lab Results: +/- 30 days of the encounter This section includes the Chemistry and Hematology Lab Results on record with [place] for the patient. Radiology Reports and Pathology Reports are provided separately, in subsequent sections.Lab Results This section contains the Chemistry/Hematology Results that were resulted 30 days before or 30 daysafter the date of the Encounter. Date/Time Source Result Type Result - Unit Interpretation Reference Range Comment Dec 01, 2021 01:36 [place] [facility] PT & INR (COUMADIN) Specimen Type: PLASMA PM [place] [facility] No comment enter ed. Ordering Provid er: MARQUES CHOWDHURY Report Released Date/Time: Nov 17, 2021 05:15 PM Reporting Lab: [facility] [address] [address] Performing Lab: [facility] [address] [facility] [address] INR 1.9 PROTIME 21.7 H 10.0-13.1 Nov 17, 2021 02:18 [facility] CBC AND DIFF Specimen Typ e: BLOOD PM [facility] (AUTO) No comment enter ed. Ordering Provid er: BOYD GROSS Report Released Date/Time: Sep 25, 2021 08:37 PM Reporting Lab: [facility] [address] [facility] [address] Performing Lab: [facility] [address] [facility] [address] WBC 6.34 4.50-11.00 RBC 4.05 L 4.23-5.66 HGB 12.0 L 12.8-17 HCT 36.6 L 39.2-50.4 MCV 90.4 82-99 MCHC 32.8 30.8-35.1 PLT 223 140-360 RDW-CV 14.3 12.0-16.0 [place], Abs 0.60 0.30-1.10 MCH 29.6 26.2-32.6 Neut % 70.7 Lymph % 15.3 [place] % 9.5 Eos % 3.3 Baso % 0.9 Neut, Abs 4.48 2.20-7.60 Lymph, Abs 0.97 L 1.00-3.20 Eos, Abs 0.21 0.03-0.44 Baso, Abs 0.06 0.01-0.13 Immature Gran % 0.3 Immature Gran, Abs 0.02 0.00-0.06 Nov 17, 2021 [facility] WSTRN PT & INR (COUMADIN) Specimen Ty pe: PLASMA 02:17 PM [facility] No comment enter ed. Ordering Provid er: REMINGTON MUKHERJEE Report Released Date/Time: Oct 20, 2021 03:30 PM Reporting Lab: [facility] [address] [facility] [address] Performing Lab: [facility] [address] [facility] [address] INR 1.6 PROTIME 18.1 H 10.0-13.1 Oct 31, 2021 12:00 [facility] OCCULT BLOOD FIT Specimen Ty pe: FECES AM [place] [facility] X1 SCREEN Comment: H* IND ICATES A VA ALERT HAS BEEN SENT Ordering Provid er: BOYD GROSS Report Released Date/Time: Oct 30, 2021 03:12 PM Reporting Lab: [facility] [place] [facility] [address] [facility] [address] Performing Lab: [place] [facility] [place] [facility] [address] [facility] [address] OCCULT BLOOD (FIT)#1 OF 1 Negative NEG Oct 20, 2021 01:52 [place] CNTRL WSTRN CBC AND DIFF Specimen Typ e: BLOOD PM [facility] (AUTO) No comment enter ed. Ordering Provid er: BOYD GROSS Report Released Date/Time: Sep 16, 2021 01:29 PM Reporting Lab: [place] CNTR [place]N [place] [facility] [address] [facility] [address] Performing Lab: [place] [facility]L [place] [facility] [address] [facility] [address] WBC 5.87 4.50-11.00 RBC 4.01 L 4.23-5.66 HGB 11.5 L 12.8-17 HCT 36.1 L 39.2-50.4 MCV 90.0 82-99 MCHC 31.9 30.8-35.1 PLT 232 140-360 RDW-CV 14.0 12.0-16.0 [place], Abs 0.66 0.30-1.10 MCH 28.7 26.2-32.6 Neut % 66.7 Lymph % 16.9 Carson % 11.2 Eos % 3.9 Baso % 1.0 Neut, Abs 3.91 2.20-7.60 Lymph, Abs 0.99 L 1.00-3.20 Eos, Abs 0.23 0.03-0.44 Baso, Abs 0.06 0.01-0.13 Immature Gran % 0.3 Immature Gran, Abs 0.02 0.00-0.06 Oct 20, 2021 [place] CNTRL WSTRN PT & INR (COUMADIN) Specimen Ty pe: PLASMA 01:51 PM [facility] No comment enter ed. Ordering Provid er: REMINGTON MUKHERJEE Report Released Date/Time: Sep 22, 2021 02:54 PM Reporting Lab: [place] [facility] [place] [facility] [address] [facility] [address] Performing Lab: [place] CNTRL WSTRN [facility] [address] [facility] [address] INR 2.0 PROTIME 22.1 H 10.0-13.1 Social History: Smoking Status (Most current) and Tobacco Use (All prior to encounter date) This section includes the most current, and the historical, smoking and tobacco-related health factors from the [place] facility where the Encounter took place.Current Smoking Status This section includes the most current smoking, or tobacco-related health factor, from the [place] facility where the Encounter took place. Date/Time Current Smoking Status Comment Facility Mar 20, 2021 01:00 PM VA-TOBACCO FORMER USER [place] CNTRL WSTRN [facility] Tobacco Use History This section includes a history of the smoking, or tobacco- related health factors, that were collected on or before the date of the Encounter. The data comes from the [place] facility where the Encounter took place. Date/Time Smoking Status/Tobacco Comment Facility Use Mar 20, 2021 01:00 VA-TOBACCO QUIT 15 YRS OR VA CNTRL [facility]N PM MORE [place] [facility] January 17, 2020 11:33 VA-TOBACCO FORMER USER VA CNT RL WSTRN AM [place] [facility] January 17, 2020 11:33 VA-TOBACCO QUIT 15 YRS OR VA CNTRL [facility] AM MORE [place] [facility] Nov 23, 2018 01:22 VA-TOBACCO FORMER USER VA CNT RL [facility]N PM [place] [facility] Nov 23, 2018 01:22 VA-TOBACCO QUIT 15 YRS OR VA CNTRL [facility] PM MORE [place] [facility] January 18, 2018 12:53 QUIT TOBACCO USE 1-7 VA CNTRL WSTRN PM YEARS AGO PT STATES HE STOPP 4 YR AGO [place] [facility] Dec 09, 2016 01:07 QUIT TOBACCO USE > 7 VA CNTRL [facility] PM YEARS AGO [place] [facility] Nov 11, 2015 01:13 QUIT [...] [facility] CN[facility] PM YEARS AGO [place] [facility] Encounter Notes: All associated encounter notes This section contains the clinical notes associated to the Encounter. Date/Time Encounter Note(s) Provider Source Nov 17, 2021 03:06 LETTERS: BOYD GROSS [facility] N PM LOCAL TITLE: PATIENT LETTER (T) JAWJACQUELINE [place] [facility] STANDARD TITLE: LETTERS DATE OF NOTE: NOV 17, 2021@15:06 ENTRY DATE: NOV 17, 2021@15:06:15 AUTHOR: BOYD GROSS EXP COSIGNER: URGENCY: STATUS: COMPLETED DEPARTMENT OF [facility] Toll Free Number Primary Care Telephone Assistance can be reached at extension [phone] [facility] scheduling can be reac hed at extension [phone] [facility] scheduling can be akua ched at ext [phone] KAMLA SCHULTE [address] [place], [place], [address] Dear [place], Primary care team reviewed your recent tests. Complete blood count shows slight improvement in hemoglobin from 11.5-12 continue iron supplement This is a copy for your own information and also to share with any other provider involved in your care. Sincerely, Your Primary Care Team [facility] [address] [facility] [address] [place] [address] [place] [address] [phone] [facility] [place] [facility] [address] [place] [address] [place] [address] [phone] [facility] [address] [facility] [address] [place] [address] [place] [address] [phone]
--- OUTSIDE RECORDS SUMMARY | 2022-11-03 05:32 | XMS_ITS ---
:1945 Author Organization [facility] rs Address [address] [place] [id number] Support Name Relationship Address Phone EJ SCHULTE Unavailable [address] [place] [address] EJ SCHULTE Unavailable [address] [place] [address] Insurance Providers: All historical and current Section [...] Telephone Name to Policy Number Spann WILVER MESSERT [facility] Aug 23, [id number] [phone] POLY ON,J PATIENT ION 2015 7 3 JUSTIN GEHA FEHB PREFERRED [facility] Aug 23, [id number] [phone] Bertha RICHARDSON PATIENT PROVIDER AL 2012 ALTH 7 136 JUSTIN ORGANIZAT GOV ION (PPO) GEHA FEHB PREFERRED GEHA Aug 23, [id number] [phone] AKUA KARLOSON,J PATIENT PROVIDER DAVID 2012 2 7 136 JUSTIN ORGANIZAT CTION ION (PPO) DENT MEDICARE MEDICARE PART Sep 23, PART A [id number] Bertha FENG PATIENT (WNR) (M) A [id number] 2 JUSTIN MEDICARE MEDICARE PART Sep 23, PART B [id number] Bertha FENG PATIENT (WNR) (M) B 2010 [id number] JUSTIN Selected Encounter This section includes the information on record at [place] for the Encounter. Date/Time Encounter Type Encounter Reason Provider Source Description Nov 17, 2021 HC PRO PHONE TELEPHONE/ANCILLA ICD-10-CM Z51.81 AALIYAH CHOWDHURY 05:04 PM CALL 5-10 MIN RY Encounter for therapeutic drug level monitoring with Provider Comments: Therapeutic Drug Level Monitoring IHE Encounter Template Text not used by [facility] Assessments - Encounter Diagnoses This section includes the primary and secondary diagnoses documented for the Encounter. 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 This section includes future appointments and future orders which are active, pending orscheduled.Future Appointments This section includes appointments that were scheduled to occur 6 months from the date of the Encounter, up to a maximum of 20 appointments. The data comes from all [place] treatment facilities. Appointment Date/Time Appointment Type Appointment Facili ty Name December 25, 2021 03:00 PM AMBULATORY - MEDICINE [facility] [place] [facility] January 13, 2022 02:00 PM AMBULATORY - MEDICINE [facility] [place] [facility] Feb 16, 2022 01:00 PM AMBULATORY - MEDICINE [facility] Apr 07, 2022 01:00 PM AMBULATORY - MEDICINE [facility] [place] [facility] Apr 07, 2022 01:30 PM AMBULATORY - MEDICINE [facility] [place] [facility] Apr 15, 2022 02:30 PM AMBULATORY - MEDICINE [facility] [place] [facility] Apr 30, 2022 01:00 PM AMBULATORY - PSYCHIATRY [facility] [place] [facility] Lab Results: +/- 30 days of the encounter This section includes the Chemistry and Hematology Lab Results on record with [place] for the patient. Radiology Reports and Pathology Reports are provided separately, in subsequent sections.Lab Results This section contains the Chemistry/Hematology Results that were resulted 30 days before or 30 daysafter the date of the Encounter. Date/Time Source Result Type Result - Unit Interpretation Reference Range Comment Dec 01, 2021 01:36 [facility] PT & INR ([facility]OUMADIN) Specimen Type: PLASMA PM [place] [facility] No comment enter ed. Ordering Provid er: MARQUES CHOWDHURY Report Released Date/Time: Nov 17, 2021 05:15 PM Reporting [facility] [place] [facility] [address] [facility] [address] Performing Lab: [facility] [place] [facility] [address] [facility] [address] INR 1.9 PROTIME 21.7 H 10.0-13.1 Nov 17, 2021 02:18 [facility] CBC AND DIFF Specimen Typ e: BLOOD PM [place] [facility] (AUTO) No comment enter ed. Ordering Provid er: BOYD GROSS Report Released Date/Time: Sep 25, 2021 08:37 PM Reporting Lab: [facility] [place] [facility] [address] [facility] [address] Performing Lab: [facility] [place] [facility] [address] [facility] [address] WBC 6.34 4.50-11.00 RBC 4.05 L 4.23-5.66 HGB 12.0 L 12.8-17 HCT 36.6 L 39.2-50.4 MCV 90.4 82-99 MCHC 32.8 30.8-35.1 PLT 223 140-360 RDW-CV 14.3 12.0-16.0 Stewart, Abs 0.60 0.30-1.10 MCH 29.6 26.2-32.6 Neut % 70.7 Lymph % 15.3 Stewart % 9.5 Eos % 3.3 Baso % 0.9 Neut, Abs 4.48 2.20-7.60 Lymph, Abs 0.97 L 1.00-3.20 Eos, Abs 0.21 0.03-0.44 Baso, Abs 0.06 0.01-0.13 Immature Gran % 0.3 Immature Gran, Abs 0.02 0.00-0.06 Nov 17, 2021 [facility] PT & INR ([place]OU[place]ADIN) Specimen Ty pe: PLASMA 02:17 PM [place] [facility] No comment enter ed. Ordering Provid er: REMINGTON MUKHERJEE Report Released Date/Time: Oct 20, 2021 03:30 PM Reporting Lab: [facility] [address] [facility] [address] Performing Lab: [facility] [address] [facility] [address] INR 1.6 PROTIME 18.1 H 10.0-13.1 Oct 31, 2021 12:00 [facility] OCCULT BLOOD FIT Specimen Ty pe: FECES AM [place] [facility] X1 SCREEN Comment: H* IND ICATES A VA ALERT HAS BEEN SENT Ordering Provid er: BOYD GROSS Report Released Date/Time: Oct 30, 2021 03:12 PM Reporting Lab: [facility] [address] [facility] [address] Performing Lab: [facility] [address] [facility] [address] OCCULT BLOOD (FIT)#1 OF 1 Negative NEG Oct 20, 2021 01:52 [facility] CBC AND DIFF Specimen Typ e: BLOOD PM [place] [facility] (AUTO) No comment enter ed. Ordering Provid er: BOYD GROSS Report Released Date/Time: Sep 16, 2021 01:29 PM Reporting Lab: [facility] [address] [facility] [address] Performing Lab: [facility] [address] [facility] [address] WBC 5.87 4.50-11.00 RBC 4.01 L 4.23-5.66 HGB 11.5 L 12.8-17 HCT 36.1 L 39.2-50.4 MCV 90.0 82-99 MCHC 31.9 30.8-35.1 PLT 232 140-360 RDW-CV 14.0 12.0-16.0 Stewart, Abs 0.66 0.30-1.10 MCH 28.7 26.2-32.6 Neut % 66.7 Lymph % 16.9 Stewart % 11.2 Eos % 3.9 Baso % 1.0 Neut, Abs 3.91 2.20-7.60 Lymph, Abs 0.99 L 1.00-3.20 Eos, Abs 0.23 0.03-0.44 Baso, Abs 0.06 0.01-0.13 Immature Gran % 0.3 Immature Gran, Abs 0.02 0.00-0.06 Oct 20, 2021 [facility] PT & INR ([place]OU[place]ADIN) Specimen Ty pe: [facility] 01:51 [facility] No comment enter ed. Ordering Provid er: REMINGTON MUKHERJEE Report Released Date/Time: Sep 22, 2021 02:54 PM Reporting Lab: [facility] [address] [facility] [address] Performing Lab: [facility] [address] [facility] [address] INR 2.0 PROTIME 22.1 H 10.0-13.1 Social History: Smoking Status (Most current) and Tobacco Use (All prior to encounter date) This section includes the most current, and the historical, smoking and tobacco-related health factors from the [place] facility where the Encounter took place.Current Smoking Status This section includes the most current smoking, or tobacco-related health factor, from the [place] facility where the Encounter took place. Date/Time Current Smoking Status Comment Facility Mar 20, 2021 01:00 PM VA-TOBACCO FORMER USER [facility] Tobacco Use History This section includes a history of the smoking, or tobacco- related health factors, that were collected on or before the date of the Encounter. The data comes from the [place] facility where the Encounter took place. Date/Time Smoking Status/Tobacco Comment Facility Use Mar 20, 2021 01:00 DE-TOBACCO QUIT 15 YRS OR [facility] PM MORE [place] [facility] January 17, 2020 11:33 VA-TOBACCO FORMER USER [facility] AM [place] [facility] January 17, 2020 11:33 VA-TOBACCO QUIT 15 YRS OR [facility] Nov 23, 2018 01:22 VA-TOBACCO FORMER USER [facility] PM [place] [facility] Nov 23, 2018 01:22 VA-TOBACCO QUIT 15 YRS OR [facility] PM [place] [facility] January 18, 2018 12:53 QUIT TOBACCO USE 1-7 [facility] PM YEARS AGO PT STATES HE STOPP 4 YR AGO [place] [facility] Dec 09, 2016 01:07 QUIT TOBACCO USE > 7 [facility] PM YEARS AGO [place] [facility] Nov 11, 2015 01:13 QUIT TOBACCO USE > 7 [facility] Nov 19, 2004 03:17 HISTORY OF SMOKING [facility] PM quit 30 yrs ago [place] [facility] Aug 10, 2003 01:03 HISTORY OF SMOKING [facility] PM [place] [facility] Apr 12, 2002 02:36 QUIT TOBACCO USE > 7 [facility] PM YEARS AGO [facility] Encounter Notes: All associated encounter notes This section contains the clinical notes associated to the Encounter. Date/Time Encounter Note(s) Provider Source Nov 17, 2021 05:04 PM PHARMACY MEDICATION MGT NOTE: MARQUES CHOWDHURY [facility] LOCAL TITLE: PHARMACY ANTICOAGULATION NOTE [facility] STANDARD TITLE: PHARMACY MEDICATION MGT NOTE DATE OF NOTE: NOV 17, 2021@17:04 ENTRY DATE: NOV 17, 2021@17:04:25 AUTHOR: MARQUES CHOWDHURY EXP COSIGNER: URGENCY: STATUS: COMPLETED REFERRED TO CLINIC ON: 06/14/07 PRIMARY CARE PHYSICIAN: Dr. James SHABAZZ INFORMATION: OTHER CONTACT INFORMATION: PATIENT'S PHONE #: [phone] home - can speak w/ Ej per pt's verbal authorization [phone] [facility] LOCATION: [facility] COUMADIN THERAPY INITIATED ON: 1992 PLANNED DURATION OF THERAPY: lifetime ESTIMATED STOP DATE: n/a INDICATION FOR COUMADIN: St See's valve GOAL INR: 2-3 (goal changed 09/29/13) RELEVANT HISTORY: DRUG INTERACTIONS: citalopram, lansoprazole, ros uvastatin, APAP, coenzyme Q10 Last CBC: 10/20/21 (Hgb 11.5, Hcg 36.1) Last PCP appt: 03/20/21 - scheduled 12/25/21 RECENT DOSING HISTORY (dose in mg): Wed INR 03/28/21 5 7.5 5 5 5 5 5 2.3 05/08/21 5 7.5 5 5 5 5 5 1.7 05/21/21 5 7.5 5 5 5 5 5 1.5 *Increase to 40mg/week* 06/05/21 5 7.5 5 5 7.5 5 5 2.2 06/19/21 5 7.5 5 5 7.5 5 5 2.0 5 7.5 5 5 7.5 5 5 2.5 08/25/21 5 7.5 5 5 7.5 5 5 2 09/22/21 5 7.5 5 5 7.5 5 5 3 10/20/21 5 7.5 5 5 7.5 5 5 2 11/17/21 5 7.5 5 5 7.5 5 5 1.6 *spoke with pt* CORRECT DOSE: yes MISSED DOSES: does not believe so, but may have dropped a pill BLEEDING: denies NEW EVENTS: no changes PROCEDURES: nothing planned MED CHANGES: started iron supplement about a wed continues taking acetaminophen for pain DIET CHANGES: eating more food with high iron pt continutes to have 1 salad/week - no changes EtOH: ~1-2 beers a day or less - no changes TOBACCO: denies TABLETS: filled x90 days on 08/11/21 [employer] - adeq uate supply, pt to call if needed OTHER: takes dose in AM TABLET STRENGTH: 5mg ASSESSMENT: INR is sub-thera peutic at 1.6 (goal 2-3) for no ascertainable reason PLAN: Informed pt of his INR result from today. Instructed pt via telephone to CONTINUE his weekly warfarin dose of 40mg/week, taking 5mg daily except 7.5mg on Wed/. Informed pt of his next PT/INR schedu led on 12/01/21. INR has been in-range for the past several months. Will monit or trend and adjust dose at next INR reading if still sub-therapeutic. Return to clinic: Nov 2 weeks, INM Time spent with patient: 5 minutes EDUCATION Provided with verbal instructions: Yes Provided with written instructions: No Barriers to learning: No Readiness to learn: Yes Specific dose directions reviewed: Yes Opportunity for questions/discussion: Yes Reports understanding of instructions: Yes Further learning needs: No Provided patient education on the following: None INR 1.51-1.79: Not Therapeutic Subtherapeutic. Patient was counseled on the si gns and symptoms of clotting and instructed to present to the Emergency Depa rtment should any of these be noticed. /yeimy/ MARQUES CHOWDHURY, PHARM.D., [facility] STAFF CLINICAL PHARMACIST Signed: 11/17/2021 17:14 Receipt Acknowledged By: * AWAITING SIGNATURE * ZAK BOWER
--- OUTSIDE RECORDS SUMMARY | 2022-11-03 05:33 | XMS_ITS ---
:1945 Author Organization [facility] rs Address [address] [place] [address] Support Name Relationship Address Phone EJ SCHULTE Unavailable [address] [place] [address] EJ SCHULTE Unavailable [address] [place] [address] Insurance Providers: All historical and current Section [...] Name to Policy Number Spann WILVER PRESCRIPT [facility] Aug 23, [id number] [phone] POLY NIELSON,J PATIENT ION 2015 7 3 JUSTIN GEHA FEHB PREFERRED [facility] Aug 23, [id number] [phone] Bertha RICHARDSON PATIENT PROVIDER AL 2012 ALTH 7 136 JUSTIN ORGANIZAT GOV ION (PPO) GEHA FEHB PREFERRED GEHA Aug 23, [id number] [phone] LIZETT,J PATIENT PROVIDER DAVID 2012 2 7 136 JUSTIN ORGANIZAT CTION ION (PPO) DENT MEDICARE MEDICARE PART Sep 23, PART A [id number] Bertha FENG PATIENT (WNR) (M) A 2010 [id number] 2 JUSTIN MEDICARE MEDICARE PART Sep 23, PART B [id number] Bertha FENG PATIENT (WNR) (M) B 2010 [id number] 2 JUSTIN Selected Encounter This section includes the information on record at [facility] for the Encounter. Date/Time Encounter Type Encounter Description Reason Provider Source Dec 12, 2021 11:01 Outpatient Encounter PRIMARY CARE/MEDICINE AM [facility] Encounter Template Text not used by [facility] Plan of Treatment: Future Appointments (+ 6 months) and Future Tests (+/- 45 days) The Plan of Treatment section includes future care activities for the patient from all [facility] treatmentfacilities. This section includes future appointments and future orders which are active, pending orscheduled.Future Appointments This section includes appointments that were scheduled to occur 6 months from the date of the Encounter, up to a maximum of 20 appointments. The data comes from all [facility] treatment facilities. Appointment Date/Time Appointment Type Appointment Facili ty Name December 25, 2021 03:00 PM AMBULATORY - MEDICINE [facility] [place] [facility] January 13, 2022 02:00 PM AMBULATORY MEDICINE [facility] [place] [facility] Feb 16, 2022 01:00 PM AMBULATORY MEDICINE [facility] [place] [facility] Apr 07, 2022 01:00 PM AMBULATORY - MEDICINE [facility] [place] [facility] Apr 07, 2022 01:30 PM AMBULATORY - MEDICINE [facility] [place] [facility] Apr 15, 2022 02:30 PM AMBULATORY - MEDICINE [facility] [place] [facility] Apr 30, 2022 01:00 PM [facility] [place] [facility] Lab Results: +/- 30 days of the encounter This section includes the Chemistry and Hematology Lab Results on record with [facility] for the patient. Radiology Reports and Pathology Reports are provided separately, in subsequent sections.Lab Results This section contains the Chemistry/Hematology Results that were resulted 30 days before or 30 daysafter the date of the Encounter. Date/Time Source Result Type Result - Unit Interpretation Reference Range Comment January 02, 2022 [facility] PT & INR ([place]) Specimen Ty pe: PLASMA 12:50 PM [facility] No comment enter ed. Ordering Provid er: SERA MEEKS Report Released Date/Time: Dec 19, 2021 11:58 AM Reporting Lab: [address] [address] Performing Lab: [facility] [place] [facility] [address] [address] INR 2.9 PROTIME 31.9 H 10.0-13.1 Dec 19, 2021 10:38 [facility] PT & INR ([place]) Specimen Type: PLASMA AM [place] [facility] No comment enter ed. Ordering Provid er: MARQUES CHOWDHURY Report Released Date/Time: Dec 01, 2021 05:11 PM Reporting Lab: [facility] [place] [facility] [address] [address] [facility]: [facility] [address] [address] INR 1.9 PROTIME 21.8 H 10.0-13.1 Dec 19, 2021 [facility]ST[facility] Specimen Ty pe: SERUM 10:38 AM [facility] No comment enter ed. Ordering Provid er: BOYD GROSS Report Released Date/Time: Dec 05, 2021 08:08 AM Reporting Lab: [facility] [place] [facility] [address] [address] Performing Lab[facility] [address] [address] CHOLESTEROL 119 <7-199 TRIGLYCERIDE 93 0-150 LDL calculated 47 0-129 CHOL/HDL 2.2 HDL CHOLESTEROL 53 40-60 Dec 19, 2021 [facility] HEM[facility] A1C PANEL Specimen T ype: BLOOD 10:38 AM [facility] Comment: Testin g performed by NGSP certified Mccoy Enzymatic with CV <2%. The Mccoy HgA1C assay should not be used to diagnose or monitor diabetes in patients with altered red cell lifespan such a s homozygous hem oglobin variants, Hb SC, HbF>5% and hemolytic anemia. Heterozygous variants do not affect this assay, HbAS, HbAC, HbAD, HbAE, AbA2 Ordering Provid er: BOYD GROSS Report Released Date/Time: Dec 05, 2021 08:08 AM Reporting Lab: [facility] [place] [facility] [address] [address] Performing Lab: [facility] [place] [facility] [address] [address] HEMOGLOBIN A1C 5.4 4.0-5.6 Dec 19, 2021 10:38 [facility] LIVER FUNCTION Specimen Typ e: SERUM AM [place] [facility] No comment enter ed. Ordering Provid er: BOYD GROSS Report Released Date/Time: Dec 05, 2021 08:08 AM Reporting Lab: [facility] [place] [facility] [address] [facility] [address] Performing Lab: [facility] [place] [facility] [address] [address] PROTEIN,TOTAL 6.8 6.0-8.3 ALBUMIN 3.7 3.5-5.0 ALKALINE PHOSPHATASE 101 40-150 AST 23 5-34 ALT 15 <6-55 BILIRUBIN, TOTAL 0.6 0.2-1.2 Dec 19, 2021 [facility] BASIC METABOLIC Specimen Type: SERUM 10:38 AM [place] [facility] PANEL (fasting) No comment enter ed. Ordering Provid er: BOYD GROSS Report Released Date/Time: Dec 05, 2021 08:08 AM Reporting Lab: [facility] [place] [facility] [address] [facility] [address] Performing Lab: [facility] [place] [facility] [address] [facility] [address] UREA NITROGEN 13 7-25 GLUCOSE 105 H 65-100 SODIUM 140 135-145 POTASSIUM 4.7 3.5-5.0 CHLORIDE 107 100-110 CO2 21 20-30 CREATININE, Serum 0.80 0.50-1.40 eGFR(CKD-EPI 2020) >90 >60 Dec 19, 2021 10:38 [facility] CBC AND DIFF Specimen Typ e: BLOOD AM [place] [facility] (AUTO) No comment enter ed. Ordering Provid er: BOYD GROSS Report Released Date/Time: Dec 05, 2021 08:08 AM Reporting Lab: [facility] [place] [facility] [address] [address] Performing Lab: [facility] [place] [facility] [address] [facility] [address] WBC 5.51 4.50-11.00 RBC 4.35 4.23-5.66 HGB 13.1 12.8-17 HCT 39.5 39.2-50.4 MCV 90.8 82-99 MCHC 33.2 30.8-35.1 PLT 232 140-360 RDW-CV 14.2 12.0-16.0 [place], Abs 0.53 0.30-1.10 MCH 30.1 26.2-32.6 Neut % 62.4 Lymph % 20.9 [place] % 9.6 Eos % 5.4 Baso % 1.3 Neut, Abs 3.44 2.20-7.60 Lymph, Abs 1.15 1.00-3.20 Eos, Abs 0.30 0.03-0.44 Baso, Abs 0.07 0.01-0.13 Immature Gran % 0.4 Immature Gran, Abs 0.02 0.00-0.06 Dec 01, 2021 01:36 [facility] PT & INR ([place]) Specimen Type: [facility]MA PM [facility] No comment enter ed. Ordering Provid er: MARQUES CHOWDHURY Report Released Date/Time: Nov 17, 2021 05:15 PM Reporting Lab: [facility] [address] [address] Performing Lab: [facility] [address] [address] INR 1.9 PROTIME 21.7 H 10.0-13.1 Nov 17, 2021 02:18 [facility] CBC AND DIFF Specimen Typ e: BLOOD PM [facility] No comment enter ed. Ordering Provid er: BOYD GROSS Report Released Date/Time: Sep 25, 2021 08:37 PM Reporting Lab: [facility] [address] [address] Performing Lab: [facility] [address] [address] WBC 6.34 4.50-11.00 RBC 4.05 L 4.23-5.66 HGB 12.0 L 12.8-17 HCT 36.6 L 39.2-50.4 MCV 90.4 82-99 MCHC 32.8 30.8-35.1 PLT 223 140-360 RDW-CV 14.3 12.0-16.0 [place], Abs 0.60 0.30-1.10 MCH 29.6 26.2-32.6 Neut % 70.7 Lymph % 15.3 [place] % 9.5 Eos % 3.3 Baso % 0.9 Neut, Abs 4.48 2.20-7.60 Lymph, Abs 0.97 L 1.00-3.20 Eos, Abs 0.21 0.03-0.44 Baso, Abs 0.06 0.01-0.13 Immature Gran % 0.3 Immature Gran, Abs 0.02 0.00-0.06 Nov 17, 2021 [facility] PT & INR ([place]) Specimen Ty pe: PLASMA 02:17 PM [facility] No comment enter ed. Ordering Provid er: REMINGTON MUKHERJEE Report Released Date/Time: Oct 20, 2021 03:30 PM Reporting Lab: [address] [address] Performing Lab: [address] [address] INR 1.6 PROTIME 18.1 H 10.0-13.1 Social History: Smoking Status (Most current) and Tobacco Use (All prior to encounter date) This section includes the most current, and the historical, smoking and tobacco-related health factors from the [facility] facility where the Encounter took place.Current Smoking Status This section includes the most current smoking, or tobacco-related health factor, from the [facility] facility where the Encounter took place. Date/Time Current Smoking Status Comment Facility Mar 20, 2021 01:00 PM VA-TOBACCO FORMER USER [facility] Tobacco Use History This section includes a history of the smoking, or tobacco- related health factors, that were collected on or before the date of the Encounter. The data comes from the [facility] facility where the Encounter took place. Date/Time Smoking Status/Tobacco Comment Facility Use Mar 20, 2021 01:00 VA-TOBACCO QUIT 15 YRS OR [facility] PM [place] [facility] January 17, 2020 11:33 VA-TOBACCO FORMER USER [facility] [place] [facility] January 17, 2020 11:33 VA-TOBACCO QUIT 15 YRS OR [facility] AM [place] [facility] Nov 23, 2018 01:22 VA-TOBACCO FORMER USER [facility] [place] [facility] Nov 23, 2018 01:22 VA-TOBACCO QUIT 15 YRS OR [facility] PM [place] [facility] January 18, 2018 12:53 QUIT TOBACCO USE 1-7 [facility] PM YEARS AGO PT STATES HE STOPP 4 YR A[facility] Dec 09, 2016 01:07 QUIT TOBACCO USE > 7 [facility] Nov 11, 2015 01:13 QUIT TOBACCO USE > 7 [facility] Nov 19, 2004 03:17 HISTORY OF SMOKING [facility] Aug 10, 2003 01:03 HISTORY OF SMOKING [facility] [place] [facility] Apr 12, 2002 02:36 QUIT TOBACCO USE > 7 [facility] PM YEARS AGO [facility] Encounter Notes: All associated encounter notes This section contains the clinical notes associated to the Encounter. Date/Time Encounter Note(s) Provider Source Dec 12, 2021 11:01 AM ADMINISTRATIVE NOTE: KATHE JONES [facility] LOCAL TITLE: ADMINISTRATIVE NOTE [facility] STANDARD TITLE: ADMINISTRATIVE NOTE DATE OF NOTE: DEC 12, 2021@11:01 ENTRY DATE: DEC 12, 2021@11:01:22 AUTHOR: KATHE JONES EXP COSIGNER: URGENCY: STATUS: COMPLETED AMSA spoke with to r emind him of his upcoming appointment with Dr. Gross on December 25 @ 3:00pm. Van Driver let [place] know about Primary Care being in the [facility] (building 2). Van Driver also let know about fasting labs to be done a week prior to his appo intment. /yeimy/ KATHE JONES [employer]ANC[employer] BE[employer] KEEPER Signed: 12/12/2021 11:02
--- OUTSIDE RECORDS SUMMARY | 2022-11-03 05:33 | XMS_ITS ---
:[address] [facility] rs Address [address] [place] [id number] Support Name Relationship Address Phone EJ SCHULTE Unavailable [address] [place] [address] EJ SCHULTE Unavailable [address] [place] [address] Insurance Providers: All historical and current Section [...] Name to Policy Number Spann WILVER [facility]ERT [facility] Aug 23, [id number] [phone] POLY ON,J PATIENT ION 2015 7 3 JUSTIN GEHA FEHB PREFERRED [facility] Aug 23, [id number] [phone] Bertha RICHARDSON PATIENT PROVIDER AL 2012 ALTH 7 136 JUSTIN ORGANIZAT GOV ION (PPO) GEHA FEHB PREFERRED GEHA Aug 23, [id number] [phone] AKUA KARLOSON,J PATIENT PROVIDER DAVID 2012 2 7 136 JUSTIN ORGANIZAT CTION ION (PPO) DENT MEDICARE MEDICARE PART Sep 23, PART B [id number] Bertha FENG PATIENT (WNR) (M) B [id number] 2 JUSTIN MEDICARE MEDICARE PART Sep 23, PART A [id number] Bertha FENG PATIENT (WNR) (M) A 2010 [id number] JUSTIN Selected Encounter This section includes the information on record at [place] for the Encounter. Date/Time Encounter Type Encounter Reason Provider Source Description Dec 01, 2021 HC PRO PHONE TELEPHONE/ANCILLA ICD-10-CM Z51.81 AALIYAH CHOWDHURY 04:52 PM CALL 11-20 MIN RY Encounter for therapeutic drug level monitoring with Provider Comments: Therapeutic Drug Level Monitoring IHE Encounter Template Text not used by [facility] Assessments - Encounter Diagnoses This section includes the primary and secondary diagnoses documented for the Encounter. 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 This section includes future appointments and future orders which are active, pending orscheduled.Future Appointments This section includes appointments that were scheduled to occur 6 months from the date of the Encounter, up to a maximum of 20 appointments. The data comes from all [place] treatment facilities. Appointment Date/Time Appointment Type Appointment Facili ty Name December 25, 2021 03:00 PM AMBULATORY - [place]ICINE [facility] [place] [facility] January 13, 2022 02:00 PM AMBULATORY - MEDICINE [facility] [place] [facility] Feb 16, 2022 01:00 PM AMBULATORY - MEDICINE [facility] [place] [facility] Apr 07, 2022 01:00 PM AMBULATORY - MEDICINE [facility] [place] [facility] Apr 07, 2022 01:30 PM AMBULATORY - MEDICINE [facility] [place] [facility] Apr 15, 2022 02:30 PM AMBULATORY - MEDICINE [facility] [place] [facility] Apr 30, 2022 01:00 PM AMBULATORY - PSYCHIATRY [facility] [place] [facility] Lab Results: +/- 30 days of the encounter This section includes the Chemistry and Hematology Lab Results on record with [place] for the patient. Radiology Reports and Pathology Reports are provided separately, in subsequent sections.Lab Results This section contains the Chemistry/Hematology Results that were resulted 30 days before or 30 daysafter the date of the Encounter. Date/Time Source Result Type Result - Unit Interpretation Reference Range Comment Dec 19, 2021 10:38 [facility] PT & INR ([place]) Specimen Type: PLASMA AM [facility] No comment enter ed. Ordering Provid er: MARQUES CHOWDHURY Report Released Date/Time: Dec 01, 2021 05:11 PM Reporting Lab: [facility] [facility] [address] [facility] [address] Performing Lab: [facility] [address] [facility] [address] INR 1.9 PROTIME 21.8 H 10.0-13.1 Dec 19, 2021 [facility] LIPID PANEL FASTING Specimen Ty pe: SERUM 10:38 AM [facility] No comment enter ed. Ordering Provid er: BOYD GROSS Report Released Date/Time: Dec 05, 2021 08:08 AM Reporting Lab: [facility] [address] [facility] [address] Performing Lab: [facility] [address] [facility] [address] CHOLESTEROL 119 <7-199 TRIGLYCERIDE 93 0-150 LDL calculated 47 0-129 CHOL/HDL 2.2 HDL CHOLESTEROL 53 40-60 Dec 19, 2021 [facility] BASIC METABOLIC Specimen Type: SERUM 10:38 AM [facility] PANEL (fasting) No comment enter ed. Ordering Provid er: BOYD GROSS Report Released Date/Time: Dec 05, 2021 08:08 AM Reporting Lab: [facility] [address] [facility] [address] Performing Lab: [facility] [address] [facility] [address] UREA NITROGEN 13 7-25 GLUCOSE 105 H 65-100 SODIUM 140 135-145 POTASSIUM 4.7 3.5-5.0 CHLORIDE 107 100-110 CO2 21 20-30 CREATININE, Serum 0.80 0.50-1.40 eGFR(CKD-EPI 2020) >90 >60 Dec 19, 2021 [facility] PANEL Specimen T ype: BLOOD 10:38 AM [facility] Comment: Testin g performed by NGSP certified [...] Dec 05, 2021 08:08 AM Reporting Lab: [address] [address] Performing Lab: [address] [address] HEMOGLOBIN A1C 5.4 4.0-5.6 Dec 19, 2021 10:38 [facility] LIVER FUNCTION Specimen Typ e: [facility] No comment enter ed. Ordering Provid er: BOYD GROSS Report Released Date/Time: Dec 05, 2021 08:08 AM Reporting Lab: [address] [address] Performing Lab: [address] [address] PROTEIN,TOTAL 6.8 6.0-8.3 ALBUMIN 3.7 3.5-5.0 ALKALINE PHOSPHATASE 101 40-150 AST 23 5-34 ALT 15 <6-55 BILIRUBIN, TOTAL 0.6 0.2-1.2 Dec 19, 2021 10:38 [facility] CBC AND DIFF Specimen Typ e: [facility]LOOD [facility] (AUTO[facility] No comment enter ed. Ordering Provid er: BOYD GROSS Report Released Date/Time: Dec 05, 2021 08:08 AM Reporting Lab: [address] [place] [address] Performing Lab: [facility] [place] [facility] [address] [facility] [address] WBC 5.51 4.50-11.00 RBC 4.35 4.23-5.66 HGB 13.1 12.8-17 HCT 39.5 39.2-50.4 MCV 90.8 82-99 MCHC 33.2 30.8-35.1 PLT 232 140-360 RDW-CV 14.2 12.0-16.0 [place], Abs 0.53 0.30-1.10 MCH 30.1 26.2-32.6 Neut % 62.4 Lymph % 20.9 [place] % 9.6 Eos % 5.4 Baso % 1.3 Neut, Abs 3.44 2.20-7.60 Lymph, Abs 1.15 1.00-3.20 Eos, Abs 0.30 0.03-0.44 Baso, Abs 0.07 0.01-0.13 Immature Gran % 0.4 Immature Gran, Abs 0.02 0.00-0.06 Dec 01, 2021 01:36 [facility] PT & INR ([place]) Specimen Type: PLASMA PM [place] [facility] No comment enter ed. Ordering Provid er: MARQUES CHOWDHURY Report Released Date/Time: Nov 17, 2021 05:15 PM Reporting [facility] [place] [facility] [address] [facility] [address] Performing Lab: [facility] [place] [address] [address] INR 1.9 PROTIME 21.7 H 10.0-13.1 Nov 17, 2021 02:18 [facility] CBC AND DIFF Specimen Typ e: BLOOD PM [place] [facility] (AUTO) No comment enter ed. Ordering Provid er: BOYD GROSS Report Released Date/Time: Sep 25, 2021 08:37 PM Reporting Lab: [facility] [place] [facility] [address] [facility] [address] Performing Lab: [facility] [place] [address] [address] WBC 6.34 4.50-11.00 RBC 4.05 L 4.23-5.66 HGB 12.0 L 12.8-17 HCT 36.6 L 39.2-50.4 MCV 90.4 82-99 MCHC 32.8 30.8-35.1 PLT 223 140-360 RDW-CV 14.3 12.0-16.0 [place], Abs 0.60 0.30-1.10 MCH 29.6 26.2-32.6 Neut % 70.7 Lymph % 15.3 [place] % 9.5 Eos % 3.3 Baso % 0.9 Neut, Abs 4.48 2.20-7.60 Lymph, Abs 0.97 L 1.00-3.20 Eos, Abs 0.21 0.03-0.44 Baso, Abs 0.06 0.01-0.13 Immature Gran % 0.3 Immature Gran, Abs 0.02 0.00-0.06 Nov 17, 2021 [facility] PT & INR ([place]) Specimen Ty pe: PLASMA 02:17 PM [facility] No comment enter ed. Ordering Provid er: REMINGTON MUKHERJEE Report Released Date/Time: Oct 20, 2021 03:30 PM Reporting Lab: [address] [address] Performing Lab: [address] [address] INR 1.6 PROTIME 18.1 H 10.0-13.1 Social History: Smoking Status (Most current) and Tobacco Use (All prior to encounter date) This section includes the most current, and the historical, smoking and tobacco-related health factors from the [place] facility where the Encounter took place.Current Smoking Status This section includes the most current smoking, or tobacco-related health factor, from the [place] facility where the Encounter took place. Date/Time Current Smoking Status Comment Facility Mar 20, 2021 01:00 PM VA-TOBACCO FORMER USER [facility] Tobacco Use History This section includes a history of the smoking, or tobacco- related health factors, that were collected on or before the date of the Encounter. The data comes from the [place] facility where the Encounter took place. Date/Time Smoking Status/Tobacco Comment Facility Use Mar 20, 2021 01:00 VA-TOBACCO QUIT 15 YRS OR [facility] PM [place] [facility] January 17, 2020 11:33 VA-TOBACCO FORMER USER [facility] [place] [facility] January 17, 2020 11:33 VA-TOBACCO QUIT 15 YRS OR [facility] AM [place] [facility] Nov 23, 2018 01:22 VA-TOBACCO FORMER USER [facility] [place] [facility] Nov 23, 2018 01:22 VA-TOBACCO QUIT 15 YRS OR [facility] PM [place] [facility] January 18, 2018 12:53 QUIT TOBACCO USE 1-7 [facility] PM YEARS AGO PT STATES HE STOPP 4 YR AGO [facility] [place] [facility] Dec 09, 2016 01:07 QUIT TOBACCO USE > 7 [facility] Nov 11, 2015 01:13 QUIT TOBACCO USE > 7 [facility] Nov 19, 2004 03:17 HISTORY OF SMOKING [facility] PM quit 30 yrs ago [place] [facility] Aug 10, 2003 01:03 HISTORY OF SMOKING [facility] Apr 12, 2002 02:36 QUIT TOBACCO USE > 7 [facility] Encounter Notes: All associated encounter notes This section contains the clinical notes associated to the Encounter. Date/Time Encounter Note(s) Provider Source Dec 01, 2021 04:52 PM PHARMACY MEDICATION MGT NOTE: MARQUES CHOWDHURY [facility] LOCAL TITLE: PHARMACY ANTICOAGULATION NOTE [facility] STANDARD TITLE: PHARMACY MEDICATION MGT NOTE DATE OF NOTE: DEC 01, 2021@16:52 ENTRY DATE: DEC 01, 2021@16:52:18 AUTHOR: MARQUES CHOWDHURY EXP COSIGNER: URGENCY: STATUS: COMPLETED PHARMACY ANTICOAGULATION NOTE Has ADDENDA * REFERRED TO CLINIC ON: 06/14/07 PRIMARY CARE PHYSICIAN: Dr. James SHABAZZ INFORMATION: OTHER CONTACT INFORMATION: PATIENT'S PHONE #: [phone] home - can speak w/ Ej per pt's verbal authorization [phone] cell CLINIC LOCATION: [facility] COUMADIN THERAPY INITIATED ON: 1992 PLANNED DURATION OF THERAPY: lifetime ESTIMATED STOP DATE: n/a INDICATION FOR COUMADIN: St See's valve GOAL INR: 2-3 (goal changed 09/29/13) RELEVANT HISTORY: DRUG INTERACTIONS: citalopram, lansoprazole, ros uvastatin, APAP, coenzyme Q10 Last CBC: 10/20/21 (Hgb 11.5, Hcg 36.1) Last PCP appt: 03/20/21 - scheduled 12/25/21 RECENT DOSING HISTORY (dose in mg): DATE Wed SAT INR 03/28/21 5 7.5 5 5 5 [...] 7.5 5 5 7.5 5 5 1.6 12/01/21 5 7.5 5 5 7.5 5 5 1.9 *Increase to 42.5mg/wk *spoke with pt* CORRECT DOSE: yes MISSED DOSES: denies BLEEDING: denies NEW EVENTS: no changes PROCEDURES: nothing planned MED CHANGES: stopped rosuvastatin,will be starti ng an injection, possibly Rephatha, taking more acetaminophen than usual DIET CHANGES: pt continutes to have 1 salad/week - no changes EtOH: ~1-2 beers a day or less - no changes TOBACCO: denies TABLETS: filled x90 days on 08/11/21 [facility] - adeq uate supply, rx suspended for 01/05/22 OTHER: takes dose in AM TABLET STRENGTH: 5mg ASSESSMENT: INR is sub-thera peutic at 1.9 (goal 2-3) for no ascertainable reason PLAN: Informed pt of his INR result from today. Instructed pt via telephone to INCREASE his weekly warfarin dose to 42.5mg/week, taking 5mg daily except 7.5mg on Mon/Wed/Fri. Informed pt of his next PT/INR s cheduled on 12/15/21. Return to clinic: Nov 2 weeks, [facility] Time spent with patient: 13 minutes EDUCATION Provided with verbal instructions: Yes Provided with written instructions: No Barriers to learning: No Readiness to learn: Yes Specific dose directions reviewed: Yes Opportunity for questions/discussion: Yes Reports understanding of instructions: Yes Further learning needs: No Provided patient education on the following: Potential drug interactions , Avoidance of ASA/ NSAIDS , Dose INR 1.80-1.99: Not Therapeutic Subtherapeutic. Patient was counseled on the si gns and symptoms of clotting and instructed to present to the Emergency Depa rtment should any of these be noticed. /yeimy/ MARQUES CHOWDHURY PHARMFroilan, [facility] STAFF CLINICAL PHARMACIST Signed: 12/01/2021 17:09 Receipt Acknowledged By: 12/02/2021 07:33 /ata BOWER CPHT Clinical Pricer Bagger 12/15/2021 ADDENDUM STATUS: COMPLETED Left message on pt's anwering machine re garding pt's missed PT/INR appt today. Advised pt to go to the lab on 12/16/21 or to con tact this clinic BERTO to reschedule his appt. /ata BOWER CPHT Clinical Pricer Bagger Signed: 12/15/2021 15:08 12/17/2021 ADDENDUM STATUS: COMPLETED Patient LVM stating that he will be in on 2 for INR draw. /ata BOWER CPHT Clinical Pricer Bagger Signed: 12/17/2021 10:07
--- OUTSIDE RECORDS SUMMARY | 2022-11-03 05:34 | XMS_ITS ---
:1945 Author Organization [facility] rs Address [address] [place] [id number] Support Name Relationship Address Phone EJ SCHULTE Unavailable [address] [place] [address] EJ SCHULTE Unavailable [address] [place] [address] Insurance Providers: All historical and current Section [...] Name to Policy Number Spann WILVER MESSERT [facility] Aug 23, [id number] [phone] POLY ON,J PATIENT ION 2015 7 3 JUSTIN GEHA FEHB PREFERRED [facility] Aug 23, [id number] [phone] Bertha RICHARDSON PATIENT PROVIDER AL 2012 ALTH 7 136 JUSTIN ORGANIZAT GOV ION (PPO) GEHA FEHB PREFERRED GEHA Aug 23, [id number] [phone] AKUA KARLOSON,J PATIENT PROVIDER DAVID 2012 2 7 136 JUSTIN ORGANIZAT CTION ION (PPO) DENT MEDICARE MEDICARE PART Sep 23, PART A [id number] Bertha FENG PATIENT (WNR) (M) A [id number] 2 JUSTIN MEDICARE MEDICARE PART Sep 23, PART B [id number] Bertha FENG PATIENT (WNR) (M) B 2010 [id number] JUSTIN Selected Encounter This section includes the information on record at [place] for the Encounter. Date/Time Encounter Type Encounter Reason Provider Source Description Dec 19, 2021 HC PRO PHONE TELEPHONE/ANCILLA ICD-10-CM Z51.81 VIANEY MEEKS 11:39 AM CALL 5-10 MIN RY Encounter for [place] therapeutic drug level monitoring with Provider Comments: Therapeutic Drug Level Monitoring IHE Encounter Template Text not used by [facility] Assessments - Encounter Diagnoses This section includes the primary and secondary diagnoses documented for the Encounter. 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 This section includes future appointments and future orders which are active, pending orscheduled.Future Appointments This section includes appointments that were scheduled to occur 6 months from the date of the Encounter, up to a maximum of 20 appointments. The data comes from all [place] treatment facilities. Appointment Date/Time Appointment Type Appointment Facili ty Name December 25, 2021 03:00 PM [facility] [place] [facility] January 13, 2022 02:00 PM [facility] [place] [facility] Feb 16, 2022 01:00 PM [facility] [place] [facility] Apr 07, 2022 01:00 PM AMBULATORY [place] [facility] [place] [facility] Apr 07, 2022 01:30 PM [facility] [place] [facility] Apr 15, 2022 02:30 PM [facility] [place] [facility] Apr 30, 2022 01:00 PM [facility] [place] [facility] Lab Results: +/- 30 days of the encounter This section includes the Chemistry and Hematology Lab Results on record with [place] for the patient. Radiology Reports and Pathology Reports are provided separately, in subsequent sections.Lab Results This section contains the Chemistry/Hematology Results that were resulted 30 days before or 30 daysafter the date of the Encounter. Date/Time Source Result Type Result - Unit Interpretation Reference Range Comment January 02, 2022 [facility] PT & INR ([place]) Specimen Ty pe: PLASMA 12:50 PM [facility] No comment enter ed. Ordering Provid er: SERA MEEKS Report Released Date/Time: Dec 19, 2021 11:58 AM Reporting Lab: [facility] [place] [facility] [address] [facility] [address] Performing Lab: [facility] [address] [facility] [address] INR 2.9 PROTIME 31.9 H 10.0-13.1 Dec 19, 2021 10:38 [facility] PT & INR ([place]) Specimen Type: PLASMA AM [facility] No comment enter ed. Ordering Provid er: MARQUES CHOWDHURY Report Released Date/Time: Dec 01, 2021 05:11 PM Reporting Lab: [facility] [place] [facility] [address] [facility] [address] Performing Lab: [facility] [facility] [address] [facility] [address] INR 1.9 PROTIME 21.8 H 10.0-13.1 Dec 19, 2021 [facility] LIPID PANEL FASTING Specimen Ty pe: SERUM 10:38 AM [facility] No comment enter ed. Ordering Provid er: BOYD GROSS Report Released Date/Time: Dec 05, 2021 08:08 AM Reporting Lab: [facility] [address] [facility] [address] Performing Lab: [facility] [place] [facility] [address] [facility] [address] CHOLESTEROL 119 <7-199 TRIGLYCERIDE 93 0-150 LDL calculated 47 0-129 CHOL/HDL 2.2 HDL CHOLESTEROL 53 40-60 Dec 19, 2021 [facility] BASIC METABOLIC Specimen Type: SERUM 10:38 AM [facility] PANEL (fasting) No comment enter ed. Ordering Provid er: BOYD GROSS Report Released Date/Time: Dec 05, 2021 08:08 AM Reporting Lab: [facility] [place] [facility] [address] [facility] [address] Performing Lab: [facility] [address] [facility] [address] UREA NITROGEN 13 7-25 GLUCOSE 105 H 65-100 SODIUM 140 135-145 POTASSIUM 4.7 3.5-5.0 CHLORIDE 107 100-110 CO2 21 20-30 CREATININE, Serum 0.80 0.50-1.40 eGFR(CKD-EPI 2020) >90 >60 Dec 19, 2021 [facility] HEM[facility] A1C PANEL Specimen T ype: BLOOD 10:38 AM [facility] Comment: Testin g performed by NGSP [...] Dec 05, 2021 08:08 AM Reporting Lab: [facility] [address] [facility] [address] Performing Lab: [facility] [address] [facility] [address] HEMOGLOBIN A1C 5.4 4.0-5.6 Dec 19, 2021 10:38 [facility] LIVER FUNCTION Specimen Typ e: SERUM AM [place] [facility] No comment enter ed. Ordering Provid er: BOYD GROSS Report Released Date/Time: Dec 05, 2021 08:08 AM Reporting Lab: [facility] [address] [facility] [address] Performing Lab: [facility] [address] [facility] [address] PROTEIN,TOTAL 6.8 6.0-8.3 ALBUMIN 3.7 3.5-5.0 ALKALINE PHOSPHATASE 101 40-150 AST 23 5-34 ALT 15 <6-55 BILIRUBIN, TOTAL 0.6 0.2-1.2 Dec 19, 2021 10:38 [facility] CBC AND DIFF Specimen Typ e: BLOOD AM [facility] (AUTO) No comment enter ed. Ordering Provid er: BOYD GROSS Report Released Date/Time: Dec 05, 2021 08:08 AM Reporting Lab: [facility] [address] [facility] [address] Performing Lab: [facility] [address] [facility] [address] WBC 5.51 4.50-11.00 RBC 4.35 4.23-5.66 HGB 13.1 12.8-17 HCT 39.5 39.2-50.4 MCV 90.8 82-99 MCHC 33.2 30.8-35.1 PLT 232 140-360 RDW-CV 14.2 12.0-16.0 [place], Abs 0.53 0.30-1.10 MCH 30.1 26.2-32.6 Neut % 62.4 Lymph % 20.9 [place] % 9.6 Eos % 5.4 Baso % 1.3 Neut, Abs 3.44 2.20-7.60 Lymph, Abs 1.15 1.00-3.20 Eos, Abs 0.30 0.03-0.44 Baso, Abs 0.07 0.01-0.13 Immature Gran % 0.4 Immature Gran, Abs 0.02 0.00-0.06 Dec 01, 2021 01:36 [facility]R ([place]) Specimen Type: PLASMA PM [facility] No comment enter ed. Ordering Provid er: MARQUES CHOWDHURY Report Released Date/Time: Nov 17, 2021 05:15 PM Reporting Lab: [facility] [address] [facility] [address] Performing Lab: [address] [address] INR 1.9 PROTIME 21.7 H 10.0-13.1 Social History: Smoking Status (Most current) and Tobacco Use (All prior to encounter date) This section includes the most current, and the historical, smoking and tobacco-related health factors from the [place] facility where the Encounter took place.Current Smoking Status This section includes the most current smoking, or tobacco-related health factor, from the [place] facility where the Encounter took place. Date/Time Current Smoking Status Comment Facility Mar 20, 2021 01:00 PM VA-TOBACCO FORMER USER [facility] Tobacco Use History This section includes a history of the smoking, or tobacco- related health factors, that were collected on or before the date of the Encounter. The data comes from the [place] facility where the Encounter took place. Date/Time Smoking Status/Tobacco Comment Facility Use Mar 20, 2021 01:00 VA-TOBACCO QUIT 15 YRS OR [facility] PM [place] [facility] January 17, 2020 11:33 VA-TOBACCO FORMER USER [facility] AM [place] [facility] January 17, 2020 11:33 VA-TOBACCO QUIT 15 YRS OR [facility] AM [place] [facility] Nov 23, 2018 01:22 VA-TOBACCO FORMER USER [facility] PM [place] [facility] Nov 23, 2018 01:22 VA-TOBACCO QUIT 15 YRS OR [facility] PM [place] [facility] January 18, 2018 12:53 QUIT TOBACCO USE 1-7 [facility] PM YEARS AGO PT STATES HE STOPP 4 YR AGO [place] [facility] Dec 09, 2016 01:07 QUIT TOBACCO USE > 7 [facility] PM YEARS AGO [place] [facility] Nov 11, 2015 01:13 QUIT TOBACCO USE > 7 [facility] PM YEARS AGO [place] [facility] Nov 19, 2004 03:17 HISTORY OF SMOKING [facility] PM quit 30 yrs ago [place] [facility] Aug 10, 2003 01:03 HISTORY OF SMOKING [facility] [place] [facility] Apr 12, 2002 02:36 QUIT TOBACCO USE > 7 [facility] PM YEARS AGO [facility] Encounter Notes: All associated encounter notes This section contains the clinical notes associated to the Encounter. Date/Time Encounter Note(s) Provider Source Dec 19, 2021 11:39 PHARMACY MEDICATION MGT NOTE: CORWIN MEEKS [facility] AM LOCAL TITLE: PHARMACY ANTICOAGULATION NOTE [facility] TITLE: PHARMACY MEDICATION MGT NOTE DATE OF NOTE: DEC 19, 2021@11:39 ENTRY DATE: DEC 19, 2021@11:39:55 AUTHOR: SERA MEEKS COSIGNER: URGENCY: STATUS: COMPLETED REFERRED TO CLINIC ON: 06/14/07 PRIMARY CARE PHYSICIAN: Dr. James SHABAZZ INFORMATION: OTHER CONTACT INFORMATION: PATIENT'S PHONE #: [phone] home - can speak w/ Ej perez pt's verbal authorization [phone] [facility] LOCATION: [facility] COUMADIN THERAPY INITIATED ON: 1992 PLANNED DURATION OF THERAPY: lifetime ESTIMATED STOP DATE: n/a INDICATION FOR COUMADIN: St See's valve GOAL INR: 2-3 (goal changed 09/29/13) RELEVANT HISTORY: DRUG INTERACTIONS: citalopram, lansoprazole, APA P, coenzyme Q10 Last CBC: 12/19/21 Last PCP appt: 09/16/21 RECENT DOSING HISTORY (dose in mg): Wed SAT INR 05/08/21 5 7.5 5 5 5 5 [...] 7.5 5 5 1.9 *Increase to 42.5mg/wk 12/19/21 5 7.5 5 7.5 5 7.5 5 1.9 *increase to 45mg/week *spoke with pt* CORRECT DOSE: yes, verified MISSED DOSES: denies BLEEDING: denies NEW EVENTS: denies PROCEDURES: none planned MED CHANGES: started Repatha injection for silvina sterol last week (noted pt had stopped rosuvastatin a few weeks ago); cont inues APAP prn for arthritis DIET CHANGES: pt continutes to have ~1 salad/wee k - no changes EtOH: ~1-2 beers a day or less - no changes TOBACCO: denies TABLETS: filled x 90 days on 08/11/21 - adequate supply, Rx suspended for 01/05/22 OTHER: takes dose in AM TABLET STRENGTH: 5mg ASSESSMENT: INR is sub-therapeutic at 1.9 (goal 2-3) remains low despite increasing warfarin dose >2 weeks ago PLAN: Informed pt of his INR result from today. Instructed pt via telephone to INCREASE his weekly warfarin dose to 45mg/week, taking 7.5mg daily except 5mg on Sun/Tue/Thur. Informed pt of his next PT/INR asia eduled on 01/02/22. Return to clinic: December 2 weeks; [facility] Time spent with patient: 5 minutes EDUCATION Provided with verbal instructions: Yes Provided with written instructions: No Barriers to learning: No Readiness to learn: Yes Specific dose directions reviewed: Yes Opportunity for questions/discussion: Yes Reports understanding of instructions: Yes Further learning needs: No Provided patient education on the following: Non e INR 1.80-1.99: Not Therapeutic Subtherapeutic. Patient was counseled on the si gns and symptoms of clotting and instructed to present to the Emergency Depa rtment should any of these be noticed. /yeimy/ Sera Meeks PharmD Clinical Banquet Captain Signed: 12/19/2021 11:58 Receipt Acknowledged By: 12/19/2021 11:59 /yeimy/ ZAK BOWER CPHT Clinical Jtac
--- OUTSIDE RECORDS SUMMARY | 2022-11-03 05:34 | XMS_ITS ---
:1945 Author Organization [facility] rs Address [address] [place] [id number] Support Name Relationship Address Phone EJ SCHULTE Unavailable [address] [place] [address] EJ SCHULTE Unavailable [address] [place] [address] Insurance Providers: All historical and current Section [...] Telephone Name to Policy Number Spann [facility] Aug 23, [id number] [phone] POLY ON,J PATIENT ION 2015 7 3 JUSTIN GEHA FEHB PREFERRED [facility] Aug 23, [id number] [phone] Bertha RICHARDSON PATIENT PROVIDER MICHELA 2012 ALTH 7 136 JUSTIN ORGANIZAT GOV ION (PPO) GEHA FEHB PREFERRED GEHA Aug 23, [id number] [phone] AKUA LIZETT,J PATIENT PROVIDER DAVID 2012 2 7 136 JUSTIN ORGANIZAT CTION ION (PPO) DENT MEDICARE MEDICARE PART Sep 23, PART A [id number] Bertha FENG PATIENT (WNR) (M) A 2010 [id number] 2 JUSTIN MEDICARE MEDICARE PART Sep 23, PART B [id number] Bertha FENG PATIENT (WNR) (M) B 2010 [id number] 2 JUSTIN Selected Encounter This section includes the information on record at [place] for the Encounter. Date/Time Encounter Type Encounter Reason Provider Source Description December 25, 2021 OFFICE O/P EST PRIMARY ICD-10-CM BOYD GROSS 03:00 PM MOD 30-39 MIN CARE/MEDICINE F43.12 JAWED Post-traumatic stress disorder, chronic with Provider Comments: Chronic post-traumatic stress disorder following combat ([facility] [id number]) IHE Encounter Template Text not used by [facility] Assessments - Encounter Diagnoses This section includes the primary and secondary diagnoses documented for the Encounter. Date/Time Primary/Secondary Diagnosis Name Provider Source Diagnosis December 25, 2021 PRIMARY Post-traumatic RADHA GROSS CNTRL WST RN 10:02 PM stress disorder, [facility] chronic December 25, 2021 SECONDARY Athscl heart RADHA GROSS [facility] WSTRN 10:02 PM disease of alutiiq [facility] [place] [facility] coronary artery w/o ang pctrs December 25, 2021 SECONDARY Chronic systolic RADHA GROSS CNTR[facility] W STRN 10:02 PM (congestive) heart [facility] [place] [facility] failure December 25, 2021 SECONDARY Gastro-esophageal AHRADHA PATEL CNTRL WSTRN 10:02 PM reflux disease [facility] [place] [facility] without esophagitis December 25, 2021 SECONDARY Hyperlipidemia, RADHA GROSS CNTRL WS TRN 10:02 PM unspecified [facility] December 25, 2021 SECONDARY Impaired fasting RADHA GROSS CNTRL W STRN 10:02 PM glucose [facility] December 25, 2021 SECONDARY retirement (current) RADHA GROSS CNTR L WSTRN 10:02 PM use of [facility] anticoagulants December 25, 2021 SECONDARY Presence of cardiac AHRADHA PATEL [facility] 10:02 PM pacemaker [facility] December 25, 2021 SECONDARY Presence of other AHMEDRADHA CNTRL WSTRN 10:02 PM heart-valve [facility] replacement Plan of Treatment: Future Appointments (+ 6 months) and Future Tests (+/- 45 days) The Plan of Treatment section includes future care activities for the patient from all [place] [facility]. This section includes future appointments and future orders which are active, pending orscheduled.Future Appointments This section includes appointments that were scheduled to occur 6 months from the date of the Encounter, up to a maximum of 20 appointments. The data comes from all [place] treatment facilities. Appointment Date/Time Appointment Type Appointment Facili ty Name January 13, 2022 02:00 PM AMBULATORY - [place]ICINE [place] [facility] [facility] Feb 16, 2022 01:00 PM [place] [facility] [place] [facility] Apr 07, 2022 01:00 PM AM[place]UL[place]ICINE [place] [facility] [facility] Apr 07, 2022 01:30 PM AM[place]UL[place]ICINE [place] [facility] [facility] Apr 15, 2022 02:30 PM AM[place]UL[place]ICINE [place] [facility] [facility] Apr 30, 2022 01:00 PM AMBULATORY - [place] [facility] [facility] Jun 25, 2022 08:00 AM AM[place]UL[place]ORY [place]IC[place] [facility] [facility] Jun 25, 2022 01:00 PM [facility] [place] [facility] Lab Results: +/- 30 days of the encounter This section includes the Chemistry and Hematology Lab Results on record with [place] for the patient. Radiology Reports and Pathology Reports are provided separately, in subsequent sections.Lab Results This section contains the Chemistry/Hematology Results that were resulted 30 days before or 30 daysafter the date of the Encounter. Date/Time Source Result Type Result - Unit Interpretation Reference Range Comment January 02, 2022 [place] [facility] PT & INR (COUMADIN) Specimen Ty pe: PLASMA 12:50 PM [facility] No comment enter ed. Ordering Provid er: SERA MEEKS Report Released Date/Time: Dec 19, 2021 11:58 AM Reporting Lab: [facility] [address] [facility] [address] Performing Lab: [facility] [address] [facility] [address] INR 2.9 PROTIME 31.9 H 10.0-13.1 Dec 19, 2021 10:38 [facility] PT & INR ([place]) Specimen Type: PLASMA AM [facility] [facility] No comment enter ed. Ordering Provid er: MARQUES CHOWDHURY Report Released Date/Time: Dec 01, 2021 05:11 PM Reporting Lab: [facility] [place] [facility] [address] [facility] [address] Performing Lab: [facility] [place] [facility] [address] [facility] [address] INR 1.9 PROTIME 21.8 H 10.0-13.1 Dec 19, 2021 [facility] LIPID PANEL FASTING Specimen Ty pe: SERUM 10:38 AM [facility] [facility] No comment enter ed. Ordering Provid er: BOYD GROSS Report Released Date/Time: Dec 05, 2021 08:08 AM Reporting Lab: [place] [facility] [facility] [address] [facility] [address] Performing Lab: [place] [facility] [facility] [address] [facility] [address] CHOLESTEROL 119 <7-199 TRIGLYCERIDE 93 0-150 LDL calculated 47 0-129 CHOL/HDL 2.2 HDL CHOLESTEROL 53 40-60 Dec 19, 2021 [facility] BASIC METABOLIC Specimen Type: SERUM 10:38 AM [place] [facility] PANEL (fasting) No comment enter ed. Ordering Provid er: BOYD GROSS Report Released Date/Time: Dec 05, 2021 08:08 AM Reporting Lab: [facility] [place] [facility] [address] [facility] [address] Performing Lab: [facility] [place] [facility] [address] [facility] [address] UREA NITROGEN 13 7-25 GLUCOSE 105 H 65-100 SODIUM 140 135-145 POTASSIUM 4.7 3.5-5.0 CHLORIDE 107 100-110 CO2 21 20-30 CREATININE, Serum 0.80 0.50-1.40 eGFR(CKD-EPI 2020) >90 >60 Dec 19, 2021 [facility] HEMOGLOBIN A1C PANEL Specimen T ype: BLOOD 10:38 AM [place] [facility] Comment: Testin g performed by NGSP [...] Dec 05, 2021 08:08 AM Reporting Lab: [facility] [place] [facility] [address] [facility] [address] Performing Lab: [facility] [address] [facility] [address] HEMOGLOBIN A1C 5.4 4.0-5.6 Dec 19, 2021 10:38 [facility] LIVER FUNCTION Specimen Typ e: SERUM AM [facility] No comment enter ed. Ordering Provid er: BOYD GROSS Report Released Date/Time: Dec 05, 2021 08:08 AM Reporting [facility]: [facility] [address] [facility] [address] Performing Lab: [facility] [address] [facility] [address] PROTEIN,TOTAL 6.8 6.0-8.3 ALBUMIN 3.7 3.5-5.0 ALKALINE PHOSPHATASE 101 40-150 AST 23 5-34 ALT 15 <6-55 BILIRUBIN, TOTAL 0.6 0.2-1.2 Dec 19, 2021 10:38 [facility] CBC AND DIFF Specimen Typ e: BLOOD AM [facility] (AUTO) No comment enter ed. Ordering Provid er: BOYD GROSS Report Released Date/Time: Dec 05, 2021 08:08 AM Reporting Lab: [facility] [place] [facility] [address] [facility] [address] Performing Lab: [facility] [address] [facility] [address] WBC 5.51 4.50-11.00 RBC 4.35 4.23-5.66 HGB 13.1 12.8-17 HCT 39.5 39.2-50.4 MCV 90.8 82-99 MCHC 33.2 30.8-35.1 PLT 232 140-360 RDW-CV 14.2 12.0-16.0 [place], Abs 0.53 0.30-1.10 MCH 30.1 26.2-32.6 Neut % 62.4 Lymph % 20.9 [place] % 9.6 Eos % 5.4 Baso % 1.3 Neut, Abs 3.44 2.20-7.60 Lymph, Abs 1.15 1.00-3.20 Eos, Abs 0.30 0.03-0.44 Baso, Abs 0.07 0.01-0.13 Immature Gran % 0.4 Immature Gran, Abs 0.02 0.00-0.06 Dec 01, 2021 01:36 [place] [facility] PT & INR (COUMADIN) Specimen Type: PLASMA PM [place] [facility] No comment enter ed. Ordering Provid er: MARQUES CHOWDHURY Report Released Date/Time: Nov 17, 2021 05:15 PM Reporting Lab: [facility] [address] [facility] [address] Performing Lab: [facility] [address] [address] INR 1.9 PROTIME 21.7 H 10.0-13.1 Vital Signs: All taken on the encounter date This section contains inpatient and outpatient Vital Signs collected on the date of the Encounter. Date/Time Temperature Pulse Blood Respiratory SP02 Pain Height Weight Tk dy Source Pressure Rate Mass Index December 25, 139/82 [place] 2021 03:33 mm[Hg] CNTR[facility] PM [place] [facility] December 25, 163/74 [place] 2021 02:54 mm[Hg] CNTRL PM [place] [facility] December 25, 98.1 F 67 168/75 16 /min 96 % 0 217 lb 29 [place] 2021 02:51 /min mm[Hg] CNTRL PM [place] [facility] Social History: Smoking Status (Most current) and Tobacco Use (All prior to encounter date) This section includes the most current, and the historical, smoking and tobacco-related health factors from the [place] facility where the Encounter took place.Current Smoking Status This section includes the most current smoking, or tobacco-related health factor, from the [place] facility where the Encounter took place. Date/Time Current Smoking Status Comment Facility Mar 20, 2021 01:00 PM VA-TOBACCO FORMER USER [facility] Tobacco Use History This section includes a history of the smoking, or tobacco- related health factors, that were collected on or before the date of the Encounter. The data comes from the [place] facility where the Encounter took place. Date/Time Smoking Status/Tobacco Comment Facility Use Mar 20, 2021 01:00 VA-TOBACCO QUIT 15 YRS OR VA [facility] PM [place] [facility] January 17, 2020 11:33 VA-TOBACCO FORMER USER VA CNT RL WSTRN AM [place] [facility] January 17, 2020 11:33 VA-TOBACCO QUIT 15 YRS OR VA [facility] AM [place] [facility] Nov 23, 2018 01:22 VA-TOBACCO FORMER USER VA CNT RL [facility]STRN PM [place] [facility] Nov 23, 2018 01:22 VA-TOBACCO QUIT 15 YRS OR [facility] PM [place] [facility] January 18, 2018 12:53 QUIT TOBACCO USE 1-7 [facility] PM YEARS AGO PT STATES HE STOPP 4 YR AGO [place] [facility] Dec 09, 2016 01:07 QUIT TOBACCO USE > 7 [facility] PM YEARS AGO [place] [facility] Nov 11, 2015 01:13 QUIT TOBACCO USE > 7 [place] [facility] PM [place]ARS AGO [place] [facility] Nov 19, 2004 03:17 HISTORY OF SMOKING [place] [facility] PM quit 30 yrs ago [place] [facility] Aug 10, 2003 01:03 HISTORY OF SMOKING [place] [facility] PM [place] [facility] Apr 12, 2002 02:36 QUIT TOBACCO USE > 7 [facility] PM YEARS AGO [facility] Encounter Notes: All associated encounter notes This section contains the clinical notes associated to the Encounter. Date/Time Encounter Note(s) Provider Source December 25, 2021 03:32 PHYSICIAN NOTE: BOYD GROSS [place] [facility] [facility] [place] PM LOCAL TITLE: [facility] STANDARD TITLE: PHYSICIAN NOTE DATE OF NOTE: DECEMBER 25, 2021@15:32 ENTRY DATE: DECEMBER 25, 2021@15:32:38 AUTHOR: BOYD GROSS EXP COSIGNER: URGENCY: STATUS: COMPLETED Patient Name: KAMLA SCHULTE VITALS: Patient temperature: 98.1 F [36.7 C] (12/25/2021 14:51) Blood pressure: 139/82 (12/25/2021) Patient height: 72 in [182.9 cm] (10/06/2018 14: 30) Patient weight: 217 lb [98.43 kg] (12/25/2021 14 :51) Patient BMI: BMI: 29.5 Patient pulse: 67 (12/25/2021 14:51) Patient respiration: 16 (12/25/2021 14:51) Pain Ratin (12/25/2021 14:51) Active VA Medications: Active Outpatient Medicat ions (including Supplies): Active Outpatient Medications Status 1) ASPIRIN 81MG EC TAB TAKE ONE TABLET BY MOUTH ONCE ACTIVE DAILY TO PREVENT STROKE/HEART ATTACK 2) BISOPROLOL FUMARATE 5MG TAB TAKE ONE TABLET B Y MOUTH ACTIVE TWICE DAILY 3) CITALOPRAM HYDROBROMIDE 20MG TAB TAKE ONE TAB LET BY ACTIVE MOUTH AT BEDTIME FOR DEPRESSION AND ANXIETY 4) DIGOXIN 0.125MG TAB TAKE ONE TABLET BY MOUTH ONCE ACTIVE (S) DAILY 5) FERROUS GLUCONATE 324MG TAB TAKE ONE TABLET B Y MOUTH ACTIVE ONCE DAILY TO SUPPLEMENT IRON 6) FLUTICASONE PROP 50MCG 120D NASAL INHL INSTIL L 1 ACTIVE SPRAY INTO EACH NOSTRIL TWICE DAILY FOR NASAL IRRITATION/INFLAMMATION 7) LANSOPRAZOLE (PREVACID) 30MG CAP *BRAND* TAKE ONE ACTIVE CAPSULE BY MOUTH DAILY 8) LATANOPROST 0.005% OPH SOLN INSTILL 1 DROP IN TO EACH ACTIVE EYE AT BEDTIME TO REDUCE PRESSURE IN THE EYE 9) LORATADINE 10MG TAB TAKE ONE TABLET BY MOUTH ONCE ACTIVE DAILY FOR ALLERGY 10) LORAZEPAM 0.5MG TAB TAKE ONE TABLET BY MOUTH TWICE ACTIVE DAILY NEEDED FOR ANXIETY/NERVES 11) TAMSULOSIN HCL 0.4MG CAP TAKE ONE CAPSULE BY MOUTH ACTIVE DAILY 12) VALSARTAN 40MG TAB TAKE ONE TABLET BY MOUTH ONCE ACTIVE (S) DAILY 13) WARFARIN NA ([place]) 5MG TAB TAKE D IRECTED ACTIVE (S) BY MOUTH WITH DIRECTIONS PROVIDED FROM YOUR VA PROVIDER (ANTICOAGULATION CLINIC extension [id number]) FOR THE PREVENTION OF BLOOD MARIA TERESA TS 14) ZOLPIDEM TARTRATE 10MG TAB TAKE ONE TABLET B Y MOUTH ACTIVE AT BEDTIME NEEDED SLEEP Pending Outpatient Medications Status 1) ALIROCUMAB 150MG/ML INJ 1ML PEN INJECT 150MG (1ML) PENDING SUBCUTANEOUSLY EVERY 2 WEEKS 2) ASPIRIN 81MG EC TAB TAKE ONE TABLET BY MOUTH ONCE PENDING DAILY TO PREVENT STROKE/HEART ATTACK 3) DIGOXIN 0.125MG TAB TAKE ONE TABLET BY MOUTH ONCE PENDING DAILY 4) VALSARTAN 40MG TAB TAKE ONE TABLET BY MOUTH O NCE PENDING DAILY Active Non-VA Medications Status 1) Non-VA COENZYME Q10 CAP/TAB ONE TABLET BY TORY TH ONCE ACTIVE DAILY NEEDED 19 Total Medications Remote Medications: No Active Remote Medications for this patient CC/HPI: 76-year-old patient with history of chronic ischemic heart disease being followed by cardiology in the community came for his 6-month follow-up appointment patient has ICD implant in [facility]. 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 Patient also [facility] he has echocardiogram is valve was working properly las t echocardiogram was done September 2021 showing good valve functio n in the aortic position along with an ejection fraction that has been stable at 40 to 45%. On examination: patient is a lert and oriented X3 vitals are stable, He is in no apparent distress. CVS: regular rate and rhythm Lungs: clear to auscultation ABD: Benign EXT: no edema. Reviewed lab work with the patient was given a c opy Assessment/plan:Service-connected PTSD -followed by MH here, no SI -continue current medications. Essential hypertension-initially was elevated li pid check was okay Coronary artery disease s/p MICHAEL to LCx 03/05/16. LILIANA 05/11/16 EF 30% with inferior/inferoseptal/inferolateral hypokinesis. NYHA CHF class III -pacemaker and ICD 07/2017 at [facility] -Patient is on ASA 81mg and coumadin for his julianne ve -Patient is unable to tolerate statins was a sta rted recently on Praluent injection patient is requesting to get through t he [facility] - valsartan 40mg daily, he is not able to tolera te a higher dose - Bisoprolol 2.5 mg twice a day HFrEF-LILIANA 05/11/16 EF 30% with inferior/i nferoseptal/inferolateral hypokinesis. NYHA -CHF class III. -continue valsartan at 40mg daily (does not tole rate higher dose) and bisoprolol -f/u cardiology Kamla Teixeira, patient also goes [facility] once a year Obstructive sleep apnea -Patient is using CPAP machine. -He has a cleaning machine Hyperlipidemia-lipids improved after his Praluen t injection Impaired fasting glucose his hemoglobin A1c is 5 .5 Aortic valve replacement-h/o bicuspid aortic julianne ve s/p St. See valve 1992 on life-time anticoagulation and stable -continue coumadin, followed by coumadin clinic here. RTC in 6 months Medication Reconciliation: Outpatient: Has the patient been taking medications as docu mented in the EMLR? YES: The patient has been taking medications as documented in the EMLR. Essential Medication List for Review used to co mplete this medication reconciliation. INCLUDED IN THIS LIST: Alphabetical list of act pierre outpatient prescriptions dispensed from this [facility] (local) an d dispensed from another [place] or [facility] facility (remote) as well as inpatien t orders (local, pending and active), local clinic medications, locally documented non-VA medications, and local prescriptions that have or been discontinued in the past 90 days. - All changes in medications, including all non -VA/Herbal/OTC medications were entered into CPRS. - If there were any medications the patient samira uld no longer take, they were discontinued. - The patient/caregiver was instructed to updat e this list, discard old lists, and take this list to the next appointme nt, whether with a VA or non-VA provider. /yeimy/ BOYD GROSS MD STAFF PHYSICIAN Signed: 12/25/2021 22:02 December 25, 2021 02:52 PREVENTIVE MEDICINE NURSING NOTE: RAVI LINDSAY [place] [facility] [facility] PM LOCAL TITLE: CLINICAL REMINDERS/NURSING [place] [facility] STANDARD TITLE: PREVENTIVE MEDICINE NURSING NOTE DATE OF NOTE: DECEMBER 25, 2021@14:52 ENTRY DATE: DECEMBER 25, 2021@14:52:52 AUTHOR: ANTONETTE LINDSAY EXP COSIGNER: URGENCY: STATUS: COMPLETED COVID-19 Immunization: Vaccine given previously - no written/electroni c documentation available The patient was instructed to bring a copy of t heir COVID-19 vaccine information to their next appointment s o that this can be accurately recorded in their [place] medical record. /yeimy/ ANTONETTE LINDSAY LPN LICENSED PRACTICAL NURSE Signed: 12/25/2021 14:57
--- OUTSIDE RECORDS SUMMARY | 2022-11-03 05:35 | XMS_ITS | Encounter Summary ---
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 [facility] Aug 23, [id number] [phone] POLY ON,J PATIENT ION 2015 7 3 JUSTIN GEHA FEHB PREFERRED [facility] [place] Aug 23, [id number] [phone] Bertha RICHARDSON PATIENT PROVIDER AL 2012 ALTH 7 136 JUSTIN ORGANIZAT GOV ION (PPO) GEHA FEHB PREFERRED GEHA Aug 23, [id number] [phone] AKUA KARLOSON,J PATIENT PROVIDER DAVID 2012 2 7 136 JUSTIN ORGANIZAT CTION ION (PPO) DENT MEDICARE MEDICARE PART Sep 23, PART A [id number] Bertha FENG PATIENT (WNR) (M) A [id number] 2 JUSTIN MEDICARE MEDICARE PART Sep 23, PART B [id number] Bertha FENG PATIENT (WNR) (M) B 2010 [id number] 2 JUSTIN Selected Encounter This section includes the information on record at [place] for the Encounter. Date/Time Encounter Type Encounter Reason Provider Source Description January 02, 2022 HC PRO PHONE TELEPHONE/ANCILLA ICD-10-CM Z51.81 VIANEY MEEKS 01:44 PM CALL 5-10 MIN RY Encounter for CA therapeutic drug level monitoring with Provider Comments: Therapeutic Drug Level Monitoring IHE Encounter Template Text not used by [facility] Assessments - Encounter Diagnoses This section includes the primary and secondary diagnoses documented for the Encounter. 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 Feb 16, 2022 01:00 PM AMBULATORY - MEDICINE [facility] [place] [facility] Apr 07, 2022 01:00 PM AMBULATORY - MEDICINE [facility] [place] [facility] Apr 07, 2022 01:30 PM AMBULATORY - MEDICINE [facility] [place] [facility] Apr 15, 2022 02:30 PM AMBULATORY - MEDICINE [facility] [place] [facility] Apr 30, 2022 01:00 PM AMBULATORY - PSYCHIATRY [facility] [place] [facility] Jun 25, 2022 08:00 AM AMBULATORY - MEDICINE [facility] [place] [facility] Jun 25, 2022 01:00 PM AMBULATORY - MEDICINE [facility] [place] [facility] Lab Results: +/- 30 days of the [...] Result - Unit Interpretation Reference Range Comment Jan 26, 2022 [facility] PT & INR ([place]OU[place]ADIN) Specimen Ty pe: PLASMA 01:17 PM [facility] No comment enter ed. Ordering Provid er: SERA MEEKS Report Released Date/Time: January 02, 2022 02:14 PM Reporting Lab: [facility] [place] [facility] [address] [facility] [address] Performing Lab: [facility] [place] [facility] [address] [facility] [address] INR 2.9 PROTIME 32.1 H 10.0-13.1 January 02, 2022 [facility] PT & INR ([place]OU[place]ADIN) Specimen Ty pe: PLASMA 12:50 PM [facility] No comment enter ed. Ordering Provid er: SERA MEEKS Report Released Date/Time: Dec 19, 2021 11:58 AM Reporting Lab: [facility] [place] [facility] [address] [facility] [address] Performing Lab: [facility] [place] [facility] [address] [facility] [address] INR 2.9 PROTIME 31.9 H 10.0-13.1 Dec 19, 2021 10:38 [facility] PT & INR (COUMADIN) Specimen Type: PLASMA AM [place] [facility] No comment enter ed. Ordering Provid er: MARQUES CHOWDHURY Report Released Date/Time: Dec 01, 2021 05:11 PM Reporting Lab: [facility] [place] [facility] [address] [facility] [address] Performing Lab: [facility] [place] [facility] [address] [facility] [address] INR 1.9 PROTIME 21.8 H 10.0-13.1 Dec 19, 2021 [facility] LIPID PANEL FASTING Specimen Ty pe: SERUM 10:38 AM [place] [facility] No comment enter ed. Ordering Provid er: BOYD GROSS Report Released Date/Time: Dec 05, 2021 08:08 AM Reporting [facility]: [facility] [place] [facility] [address] [facility] [address] Performing [facility]: [facility] [address] [facility] [address] CHOLESTEROL 119 <7-199 TRIGLYCERIDE 93 0-150 LDL calculated 47 0-129 CHOL/HDL 2.2 HDL CHOLESTEROL 53 40-60 Dec 19, 2021 [facility] BASIC METABOLIC Specimen Type: SERUM 10:38 AM [place] [facility] PANEL (fasting) No comment enter ed. Ordering Provid er: BOYD GROSS Report Released Date/Time: Dec 05, 2021 08:08 AM Reporting Lab: [facility] [place] [facility] [address] [facility] [address] Performing Lab: [facility] [address] [facility] [address] UREA NITROGEN 13 7-25 GLUCOSE 105 H 65-100 SODIUM 140 135-145 POTASSIUM 4.7 3.5-5.0 CHLORIDE 107 100-110 CO2 21 20-30 CREATININE, Serum 0.80 0.50-1.40 eGFR(CKD-EPI 2020) >90 >60 Dec 19, 2021 [facility] HEMOGLOBIN A1C PANEL Specimen T ype: BLOOD 10:38 AM [place] [facility] Comment: Testin g performed by NGSP certified [...] Dec 05, 2021 08:08 AM Reporting Lab: [facility] [place] [facility] [address] [facility] [address] Performing Lab: [facility] [place] [facility] [address] [facility] [address] HEMOGLOBIN A1C 5.4 4.0-5.6 Dec 19, 2021 10:38 [facility] LIVER FUNCTION Specimen Typ e: SERUM AM [place] [facility] No comment enter ed. Ordering Provid er: BOYD GROSS Report Released Date/Time: Dec 05, 2021 08:08 AM Reporting Lab: [facility] [place] [facility] [address] [facility] [address] Performing Lab: [facility] [place] [facility] [address] [facility] [address] PROTEIN,TOTAL 6.8 6.0-8.3 ALBUMIN 3.7 3.5-5.0 ALKALINE PHOSPHATASE 101 40-150 AST 23 5-34 ALT 15 <6-55 BILIRUBIN, TOTAL 0.6 0.2-1.2 Dec 19, 2021 10:38 [facility] CBC AND DIFF Specimen Typ e: BLOOD AM [place] [facility] (AUTO) No comment enter ed. Ordering Provid er: BOYD GROSS Report Released Date/Time: Dec 05, 2021 08:08 AM Reporting Lab: [facility] [place] [facility] [address] [facility] [address] Performing Lab: [place] [facility] [place] [facility] [address] [facility] [address] WBC 5.51 4.50-11.00 RBC 4.35 4.23-5.66 HGB 13.1 12.8-17 HCT 39.5 39.2-50.4 MCV 90.8 82-99 MCHC 33.2 30.8-35.1 PLT 232 140-360 RDW-CV 14.2 12.0-16.0 Early, Abs 0.53 0.30-1.10 MCH 30.1 26.2-32.6 Neut % 62.4 Lymph % 20.9 Early % 9.6 Eos % 5.4 Baso % 1.3 Neut, Abs 3.44 2.20-7.60 Lymph, Abs 1.15 1.00-3.20 Eos, Abs 0.30 0.03-0.44 Baso, Abs 0.07 0.01-0.13 Immature Gran % 0.4 Immature Gran, Abs 0.02 0.00-0.06 Social History: Smoking Status (Most current) and [...] PM VA-TOBACCO FORMER USER [facility] Tobacco Use History This section includes a history of the smoking, or tobacco- related health factors, that were collected on or before the date of the Encounter. The data comes from the [place] facility where the Encounter took place. Date/Time Smoking Status/Tobacco Comment Facility Use Mar 20, 2021 01:00 VA-TOBACCO QUIT 15 YRS OR [facility] January 17, 2020 11:33 VA-TOBACCO FORMER USER [facility] CNT [facility] AM [place] [facility] January 17, 2020 11:33 VA-TOBACCO QUIT 15 YRS OR [facility] Nov 23, 2018 01:22 VA-TOBACCO FORMER USER [facility] PM [place] [facility] Nov 23, 2018 01:22 VA-TOBACCO QUIT 15 YRS OR [facility] PM [place] [facility] January 18, 2018 12:53 QUIT TOBACCO USE 1-7 [facility] PM YEARS AGO PT STATES HE STOPP 4 YR AGO [place] [facility] Dec 09, 2016 01:07 QUIT TOBACCO USE > 7 [facility] PM YEARS AGO [place] [facility] Nov 11, 2015 01:13 QUIT TOBACCO USE > 7 [facility] Nov 19, 2004 03:17 HISTORY OF SMOKING [facility] PM quit 30 yrs ago [place] [facility] Aug 10, 2003 01:03 HISTORY OF SMOKING [facility] PM [place] [facility] Apr 12, 2002 02:36 QUIT TOBACCO USE > 7 [facility] PM YEARS AGO [facility] Encounter Notes: All associated encounter notes This section contains the clinical notes associated to the Encounter. Date/Time Encounter Note(s) Provider Source January 02, 2022 01:44 PHARMACY MEDICATION MGT NOTE: CORWIN MEEKS [facility] PM LOCAL TITLE: PHARMACY ANTICOAGULATION NOTE MIGUEL ÁNGELTEE [facility] STANDARD TITLE: PHARMACY MEDICATION MGT NOTE DATE OF NOTE: JANUARY 02, 2022@13:44 ENTRY DATE: JANUARY 02, 2022@13:45:05 AUTHOR: SERA MEEKS EXP COSIGNER: URGENCY: STATUS: COMPLETED PHARMACY ANTICOAGULATION NOTE Has ADDENDA * REFERRED TO CLINIC ON: 06/14/07 PRIMARY CARE PHYSICIAN: Dr. James SHABAZZ INFORMATION: OTHER CONTACT INFORMATION: PATIENT'S PHONE #: [phone] home - can speak w/ Ej per pt's verbal authorization [phone] [facility] LOCATION: [facility] COUMADIN THERAPY INITIATED ON: 1992 PLANNED DURATION OF THERAPY: lifetime ESTIMATED STOP DATE: n/a INDICATION FOR COUMADIN: St See's valve GOAL INR: 2-3 (goal changed 09/29/13) RELEVANT HISTORY: DRUG INTERACTIONS: citalopram, lansoprazole, APA P, coenzyme Q10 Last CBC: 12/19/21 Last PCP appt: 12/25/21 RECENT DOSING HISTORY (dose in mg): DATE Wed SAT INR 05/08/21 5 7.5 5 [...] 5 7.5 5 1.9 *increase to 45mg/week 01/02/22 7.5* 7.5 5 7.5 5 7.5 5* 2.9 *spoke with pt* CORRECT DOSE: taking 7.5mg on Wednesday instead of Wednesday, but same TWD MISSED DOSES: denies BLEEDING: denies NEW EVENTS: denies PROCEDURES: none planned MED CHANGES: continues APAP prn for arthritis DIET CHANGES: continues to have ~1 salad/week - no changes EtOH: ~1-2 beers a day or less - no changes TOBACCO: denies TABLETS: filled x 90 days on 08/11/21 - adequate supply, Rx suspended for 01/05/22 OTHER: takes dose in AM TABLET STRENGTH: 5mg ASSESSMENT: INR is therapeut ic at 2.9 (goal 2-3); after subsequent dose increase 2 weeks ago PLAN: Informed pt of his INR result from today. Instructed pt via telephone to CONTINUE his weekly warfarin dose of 45mg/week, taking 7.5mg daily except 5mg on Wed//Sat. Informed pt of his next PT/INR asia eduled on 01/23/22. Return to clinic: Jan 3 weeks; [facility] Time spent with patient: 5 minutes EDUCATION Provided with verbal instructions: Yes Provided with written instructions: No Barriers to learning: No Readiness to learn: Yes Specific dose directions reviewed: Yes Opportunity for questions/discussion: Yes Reports understanding of instructions: Yes Further learning needs: No Provided patient education on the following: Non e INR 2.00-3.00: Therapeutic /yeimy/ Sera Meeks PharmD Clinical Solar Fabrication Technician Signed: 01/02/2022 14:14 Receipt Acknowledged By: 01/02/2022 14:16 /yeimy/ ZAK BOWER CPHT Clinical Cable Lacer 01/23/2022 ADDENDUM STATUS: COMPLETED Patient left vm stating he will be unabl e to get INR drawn today, will present to lab on Wednesday, 01/26. Will adjust schedule to r eflect. /yeimy/ EDWIN JUAN PharmD, [facility] Clinical Solar Fabrication Technician Signed: 01/23/2022 11:19
--- OUTSIDE RECORDS SUMMARY | 2022-11-03 05:35 | XMS_ITS | Encounter Summary ---
:1945 Author Organization [facility] rs Address [address] [place] [address] Support Name Relationship Address Phone EJ SCHULTE Unavailable [address] [place] [address] EJ SCHULTE Unavailable [address] [place] [address] Insurance Providers: All historical and current Section [...] Name to Policy Number Spann WILVER PRESCRIPT [facility] Aug 23, [id number] [phone] POLY ON,J PATIENT ION 2015 7 3 JUSTIN GEHA FEHB PREFERRED GEHA Aug 23, [id number] [phone] AKUA KARLOSON,J PATIENT PROVIDER DAVID 2012 2 7 136 JUSTIN ORGANIZAT CTION ION (PPO) DENT GEHA FEHB PREFERRED MANUEL Aug 23, [id number] [phone] AKUA RDON,J PATIENT PROVIDER MICHELA 2012 ALTH 7 136 JUSTIN ORGANIZAT GOV ION (PPO) MEDICARE MEDICARE PART Sep 23, PART A [id number] Bertha FENG PATIENT (WNR) (M) A [id number] 2 JUSTIN MEDICARE MEDICARE PART Sep 23, PART B [id number] Bertha FENG PATIENT (WNR) (M) B 2010 2 JUSTIN Selected Encounter This section includes the information on record at [place] for the Encounter. Date/Time Encounter Type Encounter Reason Provider Source Description December 25, 2021 [facility] OL DIG CLINICAL PHARMACY ICD-10-CM E78.5 GARY AHMADI 04:15 PM ASSMT&MGMT Hyperlipidemia, 11-20 unspecified with Provider Comments: Hyperlipidemia ([facility] [id number]) IHE Encounter Template Text not used by [place] Assessments - Encounter Diagnoses This section includes the primary and secondary diagnoses documented for the Encounter. 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 This section includes future appointments and future orders which are active, pending orscheduled.Future Appointments This section includes appointments that were scheduled to occur 6 months from the date of the Encounter, up to a maximum of 20 appointments. The data comes from all [place] treatment facilities. Appointment Date/Time Appointment Type Appointment Facili ty Name January 13, 2022 02:00 PM AMBULATORY - MEDICINE [facility] [place] [facility] Feb 16, 2022 01:00 PM AMBULATORY - MEDICINE [facility] [place] [facility] Apr 07, 2022 01:00 PM AMBULATORY - MEDICINE [facility] [place] [facility] Apr 07, 2022 01:30 PM AMBULATORY - MEDICINE [facility] [place] [facility] Apr 15, 2022 02:30 PM AMBULATORY - MEDICINE [facility] [place] [facility] Apr 30, 2022 01:00 PM AMBULATORY - PSYCHIATRY [facility] [place] [facility] Jun 25, 2022 08:00 AM AMBULATORY - MEDICINE [facility] [place] [facility] Jun 25, 2022 01:00 PM [facility] [place] [facility] Lab Results: +/- 30 days of the encounter This section includes the Chemistry and Hematology Lab Results on record with [place] for the patient. Radiology Reports and Pathology [...] Dec 19, 2021 11:58 AM Reporting Lab: [facility] [place] [facility] [address] [facility] [address] Performing Lab: [facility] [place] [facility] [address] [facility] [address] INR 2.9 PROTIME 31.9 H 10.0-13.1 Dec 19, 2021 10:38 [facility] PT & INR ([place]OU[place]ADIN) Specimen Type: PLASMA [facility] [place] [facility] No comment enter ed. Ordering Provid er: MARQUES CHOWDHURY Report Released Date/Time: Dec 01, 2021 05:11 PM Reporting Lab: [facility] [place] [facility] [address] [facility] [address] Performing Lab: [facility] [place] [facility] [address] [facility] [address] INR 1.9 PROTIME 21.8 H 10.0-13.1 Dec 19, 2021 [facility] BASIC METABOLIC Specimen Type: SERUM 10:38 AM [place] [facility] PANEL (fasting) No comment enter ed. Ordering Provid er: BOYD GROSS Report Released Date/Time: Dec 05, 2021 08:08 AM Reporting Lab: [facility] [place] [facility] [address] [facility] [address] Performing Lab: [facility] [place] [facility] [address] [facility] [address] UREA NITROGEN 13 7-25 GLUCOSE 105 H 65-100 SODIUM 140 135-145 POTASSIUM 4.7 3.5-5.0 CHLORIDE 107 100-110 CO2 21 20-30 CREATININE, Serum 0.80 0.50-1.40 eGFR(CKD-EPI 2020) >90 >60 Dec 19, 2021 [facility] LIPID PANEL FASTING Specimen Ty pe: SERUM 10:38 AM [place] [facility] No comment enter ed. Ordering Provid er: BOYD GROSS Report Released Date/Time: Dec 05, 2021 08:08 AM Reporting Lab: [facility] [place] [facility] [address] [facility] [address] Performing Lab: [facility] [place] [facility] [address] [facility] [address] CHOLESTEROL 119 <7-199 TRIGLYCERIDE 93 0-150 LDL calculated 47 0-129 CHOL/HDL 2.2 HDL CHOLESTEROL 53 40-60 Dec 19, 2021 [facility] HEMOGLOBIN A1C PANEL Specimen T ype: BLOOD 10:38 AM [facility] Comment: Testin g performed by NGSP [...] Dec 05, 2021 08:08 AM Reporting Lab: [facility] [place] [facility] [address] [facility] [address] Performing Lab: [facility] [place] [facility] [address] [facility] [address] HEMOGLOBIN A1C 5.4 4.0-5.6 Dec 19, 2021 10:38 [facility] LIVER FUNCTION Specimen Typ e: SERUM AM [place] [facility] No comment enter ed. Ordering Provid er: BOYD GROSS Report Released Date/Time: Dec 05, 2021 08:08 AM Reporting Lab: [facility] [place] [facility] [address] [facility] [address] Performing Lab: [facility] [address] [address] PROTEIN,TOTAL 6.8 6.0-8.3 ALBUMIN 3.7 3.5-5.0 ALKALINE PHOSPHATASE 101 40-150 AST 23 5-34 ALT 15 <6-55 BILIRUBIN, TOTAL 0.6 0.2-1.2 Dec 19, 2021 10:38 [facility] CBC AND DIFF Specimen Typ e: BLOOD [facility] (AUTO[facility] No comment enter ed. Ordering Provid er: BOYD GROSS Report Released Date/Time: Dec 05, 2021 08:08 AM Reporting Lab: [facility] [place] [facility] [address] [facility] [address] Performing Lab: [facility] [address] [address] WBC 5.51 4.50-11.00 RBC 4.35 4.23-5.66 HGB 13.1 12.8-17 HCT 39.5 39.2-50.4 MCV 90.8 82-99 MCHC 33.2 30.8-35.1 PLT 232 140-360 RDW-CV 14.2 12.0-16.0 [place], Abs 0.53 0.30-1.10 MCH 30.1 26.2-32.6 Neut % 62.4 Lymph % 20.9 [place] % 9.6 Eos % 5.4 Baso % 1.3 Neut, Abs 3.44 2.20-7.60 Lymph, Abs 1.15 1.00-3.20 Eos, Abs 0.30 0.03-0.44 Baso, Abs 0.07 0.01-0.13 Immature Gran % 0.4 Immature Gran, Abs 0.02 0.00-0.06 Dec 01, 2021 01:36 [facility] PT & INR (COUMADIN) Specimen Type: PLASMA PM [place] [facility] No comment enter ed. Ordering Provid er: MARQUES CHOWDHURY Report Released Date/Time: Nov 17, 2021 05:15 PM Reporting Lab: [facility] [place] [facility] [address] [facility] [address] Performing Lab: [facility]USE[address] [address] INR 1.9 PROTIME 21.7 H 10.0-13.1 Encounter Notes: All associated encounter notes This section contains the clinical notes associated to the Encounter. Date/Time Encounter Note(s) Provider Source December 25, 2021 04:15 PM MEDICATION MGT CONSULT: GARY AHMADI [facility] LOCAL TITLE: CONSULT REPORT/NON FORMULARY PADR (631GE) STANDARD TITLE: MEDICATION MGT CONSULT DATE OF NOTE: DECEMBER 25, 2021@16:15 ENTRY DATE: DECEMBER 25, 2021@16:15:35 AUTHOR: GARY AHMADI EXP COSIGNER: URGENCY: STATUS: COMPLETED The medical record has been reviewed with regard to this restricted drug request. Medication requested: ALIROCUMAB 150MG/ML INJ 1 ML PEN Medication indication: ASCVD Medical history relevant to this request: -- Per consult: Patient who has history of ischemicheart disease status post angioplasty being followed by Dr. Teixeira patient isunable to tole rate any statin Dr. Castro recommended Praluent injection patientha s been getting every 2 weeks his lipid profile is better. -- Appears pt has previously trialed: pr avastatin 10-20mg, simvastatin 5mg and rosuvastatin 20mg -- Per 12/19 [facility] note: started Repatha injection for cholesterol last week (noted pt had stopped rosuvastatin a few weeks a go); continues APAP prn for arthritis -- Lipid panel: SERUM Dec 19 Sep 11 Nov 18 Mar 19 Reference 2021 2021 2020 2019 10:38 09:05 10:19 13:34 Units Ranges CHOL 119 136 123 148 mg/dL <7 - 199 TRIG 93 101 136 262 H mg/dL 0 - 150 HDL 53 51 46 57 mg/dL 40 - 60 LDL 47 65 50 39 mg/dL 0 - 129 The request does not meet criteria - The preferred alternative therapeutic option( s) have not been exhausted 2018 ACC/AHA guidelines r ecommend maximally tolerated statin + ezetimibe with LDL goal of <70mg/dL for pt's w/ PMH of ASCVD. If LDL <70mg/dL is not achieved with this regimen, addition of PCSK9 inhibitor m ay be considered. LDL 47mg/dL on Dec 19 is too early to reflect PCSK9i efficacy started 1 week prior (1 month of treatment on PCSK9i is re commended prior to repeat LDL level). Per prior LDL trends on rosuvast atin 20mg daily, would recommend lower rosuvastatin dose (5-10mg) a nd/or every other day rosuvastatin dosing or 3x/week rosuvastatin dosing +/- ezetimibe therapy before considering alirocumab injections. Thank you. Time spent: 15 mins /yeimy/ Alka TafoyaD, BCACP Clinical Gripper Installer Signed: 12/25/2021 16:26 Receipt Acknowledged By: * AWAITING SIGNATURE * BOYD GROSS
--- OUTSIDE RECORDS SUMMARY | 2022-11-03 05:36 | XMS_ITS ---
:1945 Author Organization [facility] rs Address [address] [place] [address] Support Name Relationship Address Phone EJ SCHULTE Unavailable [address] [facility] [address] EJ SCHULTE Unavailable [address] [place] [address] Insurance Providers: All historical and current Section [...] Name to Policy Number Spann WILVER MESSERT [facility] Aug 23, [id number] [phone] POLY ON,J PATIENT ION 2015 7 3 JUSTIN GEHA FEHB PREFERRED MANUEL Aug 23, [id number] [phone] AKUA PHOENIXJ PATIENT PROVIDER MICHELA 2012 ALTH 7 136 JUSTIN ORGANIZAT GOV ION (PPO) GEHA FEHB PREFERRED GEHA Aug 23, [id number] [phone] KAUA RDON,J PATIENT PROVIDER DAVID 2012 2 7 136 JUSTIN ORGANIZAT CTION ION (PPO) DENT MEDICARE MEDICARE PART Sep 23, PART A [id number] Bertha FENG PATIENT (WNR) (M) A [id number] 2 JUSTIN MEDICARE MEDICARE PART Sep 23, PART B [id number] Bertha FENG PATIENT (WNR) (M) B 2010 MJ 2 JUSTIN Selected Encounter This section includes the information on record at NH for the Encounter. Date/Time Encounter Type Encounter Description Reason Provider Source January 16, 2022 10:32 Outpatient Encounter TELEPHONE MH AM IHE Encounter Template Text not used by NH Plan of Treatment: Future Appointments (+ 6 months) and Future Tests (+/- 45 days) The Plan of Treatment section includes future care activities for the patient from all NH treatmentfacilities. This section includes future appointments and future orders which are active, pending orscheduled.Future Appointments This section includes appointments that were scheduled to occur 6 months from the date of the Encounter, up to a maximum of 20 appointments. The data comes from all NH treatment facilities. Appointment Date/Time Appointment Type Appointment Facili ty Name Feb 16, 2022 01:00 PM AMBULATORY - MEDICINE [place] [facility] [place] [facility] Apr 07, 2022 01:00 PM AMBULATORY MEDICINE [place] [facility] [place] [facility] Apr 07, 2022 01:30 PM AMBULATORY MEDICINE [place] [facility] [place] [facility] Apr 15, 2022 02:30 PM AMBULATORY - MEDICINE [place] [facility] [place] [facility] Apr 30, 2022 01:00 PM AMBULATORY - PSYCHIATRY [place] [facility] [place] [facility] Jun 25, 2022 08:00 AM AMBULATORY - MEDICINE [place] [facility] [place] [facility] Jun 25, 2022 01:00 PM AMBULATORY - MEDICINE [place] [facility] [place] [facility] Lab Results: +/- 30 days of the encounter This section includes the Chemistry and Hematology Lab Results on record with NH for the patient. Radiology Reports and Pathology Reports are provided separately, in subsequent sections.Lab Results This section contains the Chemistry/Hematology Results that were resulted 30 days before or 30 daysafter the date of the Encounter. Date/Time Source Result Type Result - Unit Interpretation Reference Range Comment Jan 26, 2022 [facility] PT & INR ([place]) Specimen Ty pe: PLASMA 01:17 PM [facility] No comment enter ed. Ordering Provid er: SERA MEEKS Report Released Date/Time: January 02, 2022 02:14 PM Reporting [facility] [address] [address] Performing Lab: [facility] [place] [facility] [address] [facility] [address] INR 2.9 PROTIME 32.1 H 10.0-13.1 January 02, 2022 [facility] PT & INR ([place]) Specimen Ty pe: PLASMA 12:50 PM [place] [facility] No comment enter ed. Ordering Provid er: SERA MEEKS Report Released Date/Time: Dec 19, 2021 11:58 AM Reporting Lab: [facility] [place] [facility] [address] [facility] [address] Performing Lab: [facility] [place] [facility] [address] [facility] [address] INR 2.9 PROTIME 31.9 H 10.0-13.1 Dec 19, 2021 10:38 [facility] PT & INR ([place]) Specimen Type: PLASMA AM [place] [facility] No comment enter ed. Ordering Provid er: MARQUES CHOWDHURY Report Released Date/Time: Dec 01, 2021 05:11 PM Reporting Lab: [facility] [place] [facility] [address] [facility] [address] Performing Lab: [facility] [place] [facility] [address] [facility] [address] INR 1.9 PROTIME 21.8 H 10.0-13.1 Dec 19, 2021 [facility] LIPID PANEL FASTING Specimen Ty pe: SERUM 10:38 AM [place] [facility] No comment enter ed. Ordering Provid er: BOYD GROSS Report Released Date/Time: Dec 05, 2021 08:08 AM Reporting Lab: [facility] [place] [facility] [address] [facility] [address] Performing Lab: [facility] [place] [facility] [address] [facility] [address] CHOLESTEROL 119 <7-199 TRIGLYCERIDE 93 0-150 LDL calculated 47 0-129 CHOL/HDL 2.2 HDL CHOLESTEROL 53 40-60 Dec 19, 2021 [facility] HEMOGLOBIN A1C PANEL Specimen T ype: BLOOD 10:38 AM [place] [facility] Comment: Testin g performed by NGSP [...] Dec 05, 2021 08:08 AM Reporting Lab: [facility] [place] [facility] [address] [facility] [address] Performing Lab: [facility] [address] [facility] [address] HEMOGLOBIN A1C 5.4 4.0-5.6 Dec 19, 2021 [facility] BASIC METABOLIC Specimen Type: SERUM 10:38 AM [place] [facility] PANEL (fasting) No comment enter ed. Ordering Provid er: BOYD GROSS Report Released Date/Time: Dec 05, 2021 08:08 AM Reporting Lab[facility] [address] [facility] [address] Performing Lab: [facility] [place] [facility] [address] [facility] [address] UREA NITROGEN 13 7-25 GLUCOSE 105 H 65-100 SODIUM 140 135-145 POTASSIUM 4.7 3.5-5.0 CHLORIDE 107 100-110 CO2 21 20-30 CREATININE, Serum 0.80 0.50-1.40 eGFR(CKD-EPI 2020) >90 >60 Dec 19, 2021 10:38 [facility] LIVER FUNCTION Specimen Typ e: SERUM AM [place] [facility] No comment enter ed. Ordering Provid er: BOYD GROSS Report Released Date/Time: Dec 05, 2021 08:08 AM Reporting Lab: [facility] [place] [facility] [address] [facility] [address] Performing Lab: [facility] [address] [facility] [address] PROTEIN,TOTAL 6.8 6.0-8.3 ALBUMIN 3.7 3.5-5.0 ALKALINE PHOSPHATASE 101 40-150 AST 23 5-34 ALT 15 <6-55 BILIRUBIN, TOTAL 0.6 0.2-1.2 Dec 19, 2021 10:38 [facility] CBC AND DIFF Specimen Typ e: BLOOD AM [facility] (AUTO) No comment enter ed. Ordering Provid er: BOYD GROSS Report Released Date/Time: Dec 05, 2021 08:08 AM Reporting Lab: [facility] [address] [facility] [address] Performing Lab: [facility] [address] [facility] [address] WBC 5.51 4.50-11.00 RBC 4.35 4.23-5.66 HGB 13.1 12.8-17 HCT 39.5 39.2-50.4 MCV 90.8 82-99 MCHC 33.2 30.8-35.1 PLT 232 140-360 RDW-CV 14.2 12.0-16.0 [place], Abs 0.53 0.30-1.10 MCH 30.1 26.2-32.6 Neut % 62.4 Lymph % 20.9 [place] % 9.6 Eos % 5.4 Baso % 1.3 Neut, Abs 3.44 2.20-7.60 Lymph, Abs 1.15 1.00-3.20 Eos, Abs 0.30 0.03-0.44 Baso, Abs 0.07 0.01-0.13 Immature Gran % 0.4 Immature Gran, Abs 0.02 0.00-0.06 Social History: Smoking Status (Most current) and Tobacco Use (All prior to encounter date) This section includes the most current, and the historical, smoking and tobacco-related health factors from the NH facility where the Encounter took place.Current Smoking Status This section includes the most current smoking, or tobacco-related health factor, from the NH facility where the Encounter took place. Date/Time Current Smoking Status Comment Facility Mar 20, 2021 01:00 PM VA-TOBACCO FORMER USER [facility] Tobacco Use History This section includes a history of the smoking, or tobacco- related health factors, that were collected on or before the date of the Encounter. The data comes from the NH facility where the Encounter took place. Date/Time Smoking Status/Tobacco Comment Facility Use Mar 20, 2021 01:00 VA-TOBACCO QUIT 15 YRS OR [facility] PM [place] [facility] January 17, 2020 11:33 VA-TOBACCO FORMER USER [facility] [place] [facility] January 17, 2020 11:33 VA-TOBACCO QUIT 15 YRS OR [facility] AM [place] [facility] Nov 23, 2018 01:22 VA-TOBACCO FORMER USER [facility] PM [place] [facility] Nov 23, 2018 01:22 VA-TOBACCO QUIT 15 YRS OR [facility] PM [place] [facility] January 18, 2018 12:53 QUIT TOBACCO USE 1-7 [facility] PM YEARS AGO PT STATES HE STOPP 4 YR AGO [place] [facility] Dec 09, 2016 01:07 QUIT TOBACCO USE > 7 [facility] PM YEARS AGO [place] [facility] Nov 11, 2015 01:13 QUIT TOBACCO USE > 7 [facility] PM YEARS AGO [place] [facility] Nov 19, 2004 03:17 HISTORY OF SMOKING [facility] Aug 10, 2003 01:03 HISTORY OF SMOKING [facility] Apr 12, 2002 02:36 QUIT TOBACCO USE > 7 [facility] PM YEARS AGO [facility] Encounter Notes: All associated encounter notes This section contains the clinical notes associated to the Encounter. Date/Time Encounter Note(s) Provider Source January 16, 2022 10:33 AM ACCOUNTING OF DISCLOSURES NOTE: RAHEEM SILVER [facility] LOCAL TITLE: STATE PRESCRIPTION DRUG MONITORING PROGRAM [facility] STANDARD TITLE: ACCOUNTING OF DISCLOSURES NOTE DATE OF NOTE: JANUARY 16, 2022@10:33:43 ENTRY DATE: JANUARY 16, 2022@10:33:43 AUTHOR: KYLE SILVER EXP COSIGNER: URGENCY: STATUS: COMPLETED This PDMP query was submitted by Sabino Silver. The clinical justification for this PDMP query i s to review controlled substances prescribed outside of the [place], and any additional information that may become available, as an important compo nent of standard clinical care, and in accordance with [facility] policy. Patient information was shared with the PDMP Renetta atVenu. No prescription(s) for controlled substances out side the [facility] were found in the last 90 days. /yeimy/ KYLE SILVER MD PSYCHIATRIST Signed: 01/16/2022 10:34
--- OUTSIDE RECORDS SUMMARY | 2022-11-03 05:36 | XMS_ITS | Encounter Summary ---
:1945 Author Organization [facility] rs Address [address] [place] [address] Support Name Relationship Address Phone EJ SCHULTE Unavailable [address] [place] [address] EJ SCHULTE Unavailable [address] [place] [address] Insurance Providers: All historical and current Section [...] Name to Policy Number Spann WILVER MESSERT [facility] Aug 23, [id number] [phone] POLY ON,J PATIENT ION 2015 7 3 JUSTIN GEHA FEHB PREFERRED [facility] Aug 23, [id number] [phone] Bertha RICHARDSON PATIENT PROVIDER AL 2012 ALTH 7 136 JUSTIN ORGANIZAT GOV ION (PPO) GEHA FEHB PREFERRED GEHA Aug 23, [id number] [phone] AKUA RDON,J PATIENT PROVIDER DAVID 2012 2 7 136 JUSTIN ORGANIZAT CTION ION (PPO) DENT MEDICARE MEDICARE PART Sep 23, PART A [id number] Bertha FENG PATIENT (WNR) (M) A [id number] 2 JUSTIN MEDICARE MEDICARE PART Sep 23, PART B [id number] Bertha FENG PATIENT (WNR) (M) B 2010 [id number] JUSTIN Selected Encounter This section includes the information on record at [place] for the Encounter. Date/Time Encounter Type Encounter Description Reason Provider Source Dec 18, 2021 12:00 Outpatient Encounter COMMUNITY CARE AM CONSULT IHE Encounter Template Text not used by [place] Plan of Treatment: Future Appointments (+ 6 months) and Future Tests (+/- 45 days) The Plan of Treatment section includes future care activities for the patient from all [place] treatmentfacilities. This section includes future appointments and future orders which are active, pending orscheduled.Future Appointments This section includes appointments that were scheduled to occur 6 months from the date of the Encounter, up to a maximum of 20 appointments. The data comes from all [place] treatment facilities. Appointment Date/Time Appointment Type Appointment Facili ty Name December 25, 2021 03:00 PM AMBULATORY - MEDICINE [place] [facility] [place] [facility] January 13, 2022 02:00 PM AMBULATORY MEDICINE [place] [facility] [place] [facility] Feb 16, 2022 01:00 PM AMBULATORY - MEDICINE [place] [facility] [place] [facility] Apr 07, 2022 01:00 PM AMBULATORY - MEDICINE [place] [facility] [place] [facility] Apr 07, 2022 01:30 PM AMBULATORY - MEDICINE [place] [facility] [place] [facility] Apr 15, 2022 02:30 PM AMBULATORY - MEDICINE [place] [facility] [place] [facility] Apr 30, 2022 01:00 PM [facility] [place] [facility] Lab Results: +/- 30 days of the encounter This section includes the Chemistry and Hematology Lab Results on record with [place] for the patient. Radiology Reports and Pathology Reports are provided separately, in subsequent sections.Lab Results This section contains the Chemistry/Hematology Results that were resulted 30 days before or 30 daysafter the date of the Encounter. Date/Time Source Result Type Result - Unit Interpretation Reference Range Comment January 02, 2022 [facility] PT & INR ([place]) Specimen Ty pe: PLASMA 12:50 PM [facility] No comment enter ed. Ordering Provid er: SERA MEEKS Report Released Date/Time: Dec 19, 2021 11:58 AM Reporting Lab: [address] [address] Performing Lab: [facility] [place] [facility] [address] [facility] [address] INR 2.9 PROTIME 31.9 H 10.0-13.1 Dec 19, 2021 10:38 [facility] PT & INR ([place]) Specimen Type: PLASMA AM [place] [facility] No comment enter ed. Ordering Provid er: MARQUES CHOWDHURY Report Released Date/Time: Dec 01, 2021 05:11 PM Reporting Lab: [facility] [place] [facility] [address] [facility] [address] Performing Lab: [facility] [place] [facility] [address] [facility] [address] INR 1.9 PROTIME 21.8 H 10.0-13.1 Dec 19, 2021 [facility] LIPID PANEL FASTING Specimen Ty pe: SERUM 10:38 AM [place] [facility] No comment enter ed. Ordering Provid er: BOYD GROSS Report Released Date/Time: Dec 05, 2021 08:08 AM Reporting Lab: [facility] [place] [facility] [address] [facility] [address] Performing Lab: [facility] [place] [facility] [address] [facility] [address] CHOLESTEROL 119 <7-199 TRIGLYCERIDE 93 0-150 LDL calculated 47 0-129 CHOL/HDL 2.2 HDL CHOLESTEROL 53 40-60 Dec 19, 2021 [facility] BASIC METABOLIC Specimen Type: SERUM 10:38 AM [place] [facility] PANEL (fasting) No comment enter ed. Ordering Provid er: BOYD GROSS Report Released Date/Time: Dec 05, 2021 08:08 AM Reporting Lab: [facility] [place] [facility] [address] [facility] [address] Performing Lab: [facility] [place] [facility] [address] [facility] [address] UREA NITROGEN 13 7-25 GLUCOSE 105 H 65-100 SODIUM 140 135-145 POTASSIUM 4.7 3.5-5.0 CHLORIDE 107 100-110 CO2 21 20-30 CREATININE, Serum 0.80 0.50-1.40 eGFR(CKD-EPI 2020) >90 >60 Dec 19, 2021 10:38 [facility] LIVER FUNCTION Specimen Typ e: SERUM AM [place] [facility] No comment enter ed. Ordering Provid er: BOYD GROSS Report Released Date/Time: Dec 05, 2021 08:08 AM Reporting Lab: [facility] [place] [facility] [address] [facility] [address] Performing Lab: [facility] [place] [facility] [address] [facility] [address] PROTEIN,TOTAL 6.8 6.0-8.3 ALBUMIN 3.7 3.5-5.0 ALKALINE PHOSPHATASE 101 40-150 AST 23 5-34 ALT 15 <6-55 BILIRUBIN, TOTAL 0.6 0.2-1.2 Dec 19, 2021 [facility] HEMOGLOBIN A1C PANEL Specimen T ype: BLOOD 10:38 AM [facility] Comment: Testin g performed by NGSP [...] Dec 05, 2021 08:08 AM Reporting Lab: [facility] [place] [facility] [address] [facility] [address] Performing Lab: [facility] [place] [facility] [address] [facility] [address] HEMOGLOBIN A1C 5.4 4.0-5.6 Dec 19, 2021 10:38 [facility] CBC AND DIFF Specimen Typ e: BLOOD AM [place] [facility] (AUTO) No comment enter ed. Ordering Provid er: BOYD GROSS Report Released Date/Time: Dec 05, 2021 08:08 AM Reporting Lab: [facility] [place] [facility] [address] [facility] [address] Performing Lab: [facility] [address] [facility] [address] WBC 5.51 4.50-11.00 RBC 4.35 4.23-5.66 HGB 13.1 12.8-17 HCT 39.5 39.2-50.4 MCV 90.8 82-99 MCHC 33.2 30.8-35.1 PLT 232 140-360 RDW-CV 14.2 12.0-16.0 [place], Abs 0.53 0.30-1.10 MCH 30.1 26.2-32.6 Neut % 62.4 Lymph % 20.9 [place] % 9.6 Eos % 5.4 Baso % 1.3 Neut, Abs 3.44 2.20-7.60 Lymph, Abs 1.15 1.00-3.20 Eos, Abs 0.30 0.03-0.44 Baso, Abs 0.07 0.01-0.13 Immature Gran % 0.4 Immature Gran, Abs 0.02 0.00-0.06 Dec 01, 2021 01:36 [facility] PT & INR ([place]) Specimen Type: PLASMA PM [facility] No comment enter ed. Ordering Provid er: MARQUES CHOWDHURY Report Released Date/Time: Nov 17, 2021 05:15 PM Reporting Lab: [address] [address] Performing Lab: [address] [address] INR 1.9 PROTIME 21.7 H 10.0-13.1 Social History: Smoking Status (Most current) and Tobacco Use (All prior to encounter date) This section includes the most current, and the historical, smoking and tobacco-related health factors from the [place] facility where the Encounter took place.Current Smoking Status This section includes the most current smoking, or tobacco-related health factor, from the [place] facility where the Encounter took place. Date/Time Current Smoking Status Comment Facility Mar 20, 2021 01:00 PM VA-TOBACCO FORMER USER [facility] Tobacco Use History This section includes a history of the smoking, or tobacco- related health factors, that were collected on or before the date of the Encounter. The data comes from the [place] facility where the Encounter took place. Date/Time Smoking Status/Tobacco Comment Facility Use Mar 20, 2021 01:00 VA-TOBACCO QUIT 15 YRS OR [facility] PM [place] [facility] January 17, 2020 11:33 VA-TOBACCO FORMER USER [facility] [place] [facility] January 17, 2020 11:33 VA-TOBACCO QUIT 15 YRS OR [facility] AM [place] [facility] Nov 23, 2018 01:22 VA-TOBACCO FORMER USER [facility] [place] [facility] Nov 23, 2018 01:22 VA-TOBACCO QUIT 15 YRS OR [facility] PM [place] [facility] January 18, 2018 12:53 QUIT TOBACCO USE 1-7 VA [facility] PM YEARS AGO PT STATES HE STOPP 4 YR AGO [place] [facility] Dec 09, 2016 01:07 QUIT TOBACCO USE > 7 [facility] PM YEARS AGO [facility] Nov 11, 2015 01:13 QUIT TOBACCO USE > 7 [facility] Nov 19, 2004 03:17 HISTORY OF SMOKING [facility] PM quit 30 yrs ago [facility] Aug 10, 2003 01:03 HISTORY OF SMOKING [facility] PM [place] [facility] Apr 12, 2002 02:36 QUIT TOBACCO USE > 7 VA [facility] PM YEARS AGO [facility] Encounter Notes: All associated encounter notes This section contains the clinical notes associated to the Encounter. Date/Time Encounter Note(s) Provider Source Dec 18, 2021 12:00 AM NONVA CONSULT: [facility] LOCAL TITLE: COMMUNITY CARE-CONSULT RESULT NOTE [facility] STANDARD TITLE: NONVA CONSULT DATE OF NOTE: DEC 18, 2021 ENTRY DATE: JANUARY 05 022@11:07:03 AUTHOR: AMELIA LUCIA EXP COSIGNER: URGENCY: STATUS: COMPLETED VistA Imaging - Scanned Document SCANNED DOCUMENT SIGNATURE NOT REQUIRED Electronically Filed: 01/05/2022 by: AMELIA LUCIA LPN LICENSED PRACTICAL NURSE
--- OUTSIDE RECORDS SUMMARY | 2022-11-03 05:37 | XMS_ITS ---
:1945 Author Organization [facility] rs Address [address] [place] [address] Support Name Relationship Address Phone EJ SCHULTE Unavailable [address] [place] [address] EJ SCHULTE Unavailable [address] [place] [address] Insurance Providers: All historical and current Section [...] Name to Policy Number Spann WILVER PRESCRIPT [facility] Aug 23, [id number] [phone] POLY ON,J PATIENT ION 2015 7 3 JUSTIN GEHA FEHB PREFERRED GE Aug 23, [id number] [phone] AKUA LIZETT,J PATIENT PROVIDER DAVID 2012 2 7 136 JUSTIN ORGANIZAT CTION ION (PPO) DENT GEHA FEHB PREFERRED MANUEL Aug 23, [id number] [phone] AKUA RDON,J PATIENT PROVIDER AL 2012 ALTH 7 136 JUSTIN ORGANIZAT GOV ION (PPO) MEDICARE MEDICARE PART Sep 23, PART A [id number] Bertha FENG PATIENT (WNR) (M) A 2010 [id number] 2 JUSTIN MEDICARE MEDICARE PART Sep 23, PART B [id number] Bertha FENG PATIENT (WNR) (M) B 2010 [id number] 2 JUSTIN Selected Encounter This section includes the information on record at [place] for the Encounter. Date/Time Encounter Type Encounter Reason Provider Source Description Jan 22, 2022 01:23 Outpatient PRIMARY MARQUES MURILLO PM Encounter CARE/MEDICINE IHE Encounter Template Text not used by [place] Plan of Treatment: Future Appointments (+ 6 months) and Future Tests (+/- 45 days) The Plan of Treatment section includes future care activities for the patient from all [place] treatmentfacilities. This section includes future appointments and future orders which are active, pending orscheduled.Future Appointments This section includes appointments that were scheduled to occur 6 months from the date of the Encounter, up to a maximum of 20 appointments. The data comes from all [place] treatment facilities. Appointment Date/Time Appointment Type Appointment Facili ty Name Feb 16, 2022 01:00 PM AMBULATORY - [place]ICINE [place] [facility] [place] [facility] Apr 07, 2022 01:00 PM AMBULATORY MEDICINE [place] [facility] [place] [facility] Apr 07, 2022 01:30 PM AMBULATORY MEDICINE [place] [facility] [place] [facility] Apr 15, 2022 02:30 PM AMBULATORY [place]ICINE [place] [facility] [place] [facility] Apr 30, 2022 01:00 PM AMBULATORY - PS[place]CHIATRY [place] [facility] [place] [facility] Jun 25, 2022 08:00 AM AMBULATORY MEDICINE [place] [facility] [place] [facility] Jun 25, 2022 01:00 [facility] Lab Results: +/- 30 days of the encounter This section includes the Chemistry and Hematology Lab Results on record with [place] for the patient. Radiology Reports and Pathology Reports are provided separately, in subsequent sections.Lab Results This section contains the Chemistry/Hematology Results that were resulted 30 days before or 30 daysafter the date of the Encounter. Date/Time Source Result Type Result - Unit Interpretation Reference Range Comment Feb 16, 2022 [place] [facility] PT & INR (COUMADIN) Specimen Ty pe: PLASMA 12:59 PM [facility] No comment enter ed. Ordering Provid er: SUDHEER KEENAN Report Released Date/Time: Jan 27, 2022 08:43 AM Reporting [facility] [address] [address] Performing Lab: [place] [facility] [place] [facility] [address] [facility] [address] INR 2.3 PROTIME 26.1 H 10.0-13.1 Jan 26, 2022 [facility] PT & INR ([place]) Specimen Ty pe: PLASMA 01:17 PM [place] [facility] No comment enter ed. Ordering Provid er: SERA MEEKS Report Released Date/Time: January 02, 2022 02:14 PM Reporting Lab: [place] [facility] [place] [facility] [address] [facility] [address] Performing Lab: [place] [facility] [facility] [address] [facility] [address] INR 2.9 PROTIME 32.1 H 10.0-13.1 January 02, 2022 [facility] Specimen Ty pe: PLASMA 12:50 PM [facility] No comment enter ed. Ordering Provid er: SERA MEEKS Report Released Date/Time: Dec 19, 2021 11:58 AM Reporting Lab: [place] [facility] [place] [facility] [address] [facility] [address] Performing Lab: [place] [facility] [place] [facility] [address] [facility] [address] INR 2.9 PROTIME 31.9 H 10.0-13.1 Social History: Smoking Status (Most current) and Tobacco Use (All prior to encounter date) This section includes the most current, and the historical, smoking and tobacco-related health factors from the [place] facility where the Encounter took place.Current Smoking Status This section includes the most current smoking, or tobacco-related health factor, from the [place] facility where the Encounter took place. Date/Time Current Smoking Status Comment Facility Mar 20, 2021 01:00 PM [facility]-TO[facility]ACCO [facility] Tobacco Use History This section includes a history of the smoking, or tobacco- related health factors, that were collected on or before the date of the Encounter. The data comes from the [place] facility where the Encounter took place. Date/Time Smoking Status/Tobacco Comment Facility Use Mar 20, 2021 01:00 VA-TOBACCO QUIT 15 YRS OR [facility] PM [place] [facility] January 17, 2020 11:33 [facility]-TO[facility]ACCO [facility] January 17, 2020 11:33 VA-TOBACCO QUIT 15 YRS OR [facility] [place] [facility] Nov 23, 2018 01:22 VA-TOBACCO FORMER USER [facility] [place] [facility] Nov 23, 2018 01:22 VA-TOBACCO QUIT 15 YRS OR [facility] PM [place] [facility] January 18, 2018 12:53 QUIT TOBACCO USE 1-7 [facility] PM YEARS AGO PT STATES HE STOPP 4 YR AGO [facility] [place] [facility] Dec 09, 2016 01:07 QUIT TOBACCO USE > 7 [facility] Nov 11, 2015 01:13 QUIT TOBACCO USE > 7 [facility] Nov 19, 2004 03:17 HISTORY OF SMOKING [facility] Aug 10, 2003 01:03 HISTORY OF SMOKING [facility] [place] [facility] Apr 12, 2002 02:36 QUIT TOBACCO USE > 7 [facility] PM YEARS AGO [facility] Encounter Notes: All associated encounter notes This section contains the clinical notes associated to the Encounter. Date/Time Encounter Note(s) Provider Source Mar 06, 2022 11:01 PRIMARY CARE SECURE MESSAGING: MARQUES MURILLO [facility] TITLE: PRIMARY CARE SECURE MESSAGING [facility] STANDARD TITLE: PRIMARY CARE SECURE MESSAGING DATE OF NOTE: MAR 06, 2022@11:01 ENTRY DATE: MAR 06, 2022@12:01:58 AUTHOR: MARQUES MURILLO EXP COSIGNER: URGENCY: STATUS: COMPLETED ------Original Message Sent: 01/22/2022 06:08 PM ET From: KAMLA SCHULTE To: Rio RAMIREZ_PRIMARY [facility]ARE_[facility] Subject: Medication:praluent Thanks . ------Original Message Sent: 03/04/2022 09:59 AM ET From: KAMLA SCHULTE To: Rio RAMIREZ_[facility] Subject: Medication:praluent I have had no reply to my inquiry regarding this medication. Since it appears [place] is not going to provide it, I request a formal answer and the justification for this action. Derrell Schulte ------Original Message Sent: 03/06/2022 12:01 PM ET From: MARQUES MURILLO To: KAMLA SCHULTE Subject: Medication:praluent It looks like that [facility] not [facility]. Ramirez did request it through a non-formulary request, but it was not approved. This is the information I found in the non-formulary genaro hernandez request: [place] POLICY ON PRIOR AUTHORIZATION / RESTRICTED D RUGS: 1) According to [place] policy, medications prescribe d by the [place] clinician will be chosen by the [place] clinician, using the [place] formulary for all prescriptions unless there is a contraindication (ie allergy, drug interaction), previous therapeutic failure, or o ther valid justification for utilizing the requested agent. 2) If the prefers prior authorization me dications despite the availability of equivalent alternatives and the offer to provide these medications to the , the [place] ma y choose to obtain the prior authorization medication at his/her ow n expense through a private pharmacy (per [place] policy). The medical record has been reviewed with nate kellogg to this restricted drug request. Medication requested: ALIROCUMAB 150MG/ML INJ 1 ML PEN Medication indication: ASCVD Medical history relevant to this request: -- Per consult: Patient who has history of ischemicheart disease status post angioplasty being followed by Dr. Teixeira patient is unable to brigitte erate any statin Dr. Castro recommended Praluent injecti on patient has been getting every 2 weeks his lipid [...] have not been exhausted 2018 ACC/AHA guidelines recommend maximally t olerated statin + ezetimibe with LDL goal of <70mg/dL for pt's w/ PMH of ASC VD. If LDL <70mg/dL is not achieved with this regimen, addition of PCSK9 in hibitor may be considered. LDL 47mg/dL on Dec 19, 2021 is too ea rly to reflect PCSK9i efficacy started 1 week prior (1 month of treatment on PCSK9i is recommended prior to repeat LDL level). Per prior LDL trends on rosuvastatin 20mg daily, would recommend lower rosuvastatin dose (5-10mg) and/or every other day rosuvastatin dosing or 3x/week rosuvastatin dosing +/- ezetimibe therap y before considering alirocumab injections. It looks like you may want t o discuss the above information with your community care residential collections. Let me know if you have any o ther questions, DEBBIE Gonzales /yeimy/ MARQUES MURILLO, MSN, RN, DOLLY-BC REGISTERED NURSE Signed: 03/06/2022 12:01 Jan 22, 2022 01:23 PRIMARY CARE SECURE MESSAGING: MARQUES MURILLO CNTRL WSTRN PM LOCAL TITLE: PRIMARY CARE SECURE MESSAGING [facility] STANDARD TITLE: PRIMARY CARE SECURE MESSAGING DATE OF NOTE: JAN 22, 2022@13:23 ENTRY DATE: JAN 22, 2022@14:23:21 AUTHOR: MARQUES MURILLO EXP COSIGNER: URGENCY: STATUS: COMPLETED ------Original Message Sent: 01/20/2022 12:54 PM ET From: KAMLA SCHULTE To: Rio RAMIREZ_PRIMARY CARE_[facility] Subject: Medication:praluent At the direction of my residential collections. I am taking Praluent injections.. During my last Doctor James requested that medic ation from Pharmacy for me. Will this RX be provided and if not I request a denial in writing as to why not. Thanks Derrell Schulte ------Original Message Sent: 01/22/2022 02:23 PM ET From: MARQUES MURILLO To: KAMLA SCHULTE Subject: Medication:praluent I will pass your message along to Dr. Alhaji latif to see what is happening with your request. Thank you, DEBBIE Gonzales /yeimy/ MARQUES MURILLO, MSN, RN, DOLLY- REGISTERED NURSE Signed: 01/22/2022 14:23
--- OUTSIDE RECORDS SUMMARY | 2022-11-03 05:37 | XMS_ITS | Encounter Summary ---
:1945 Author Organization [facility] rs Address [address] [place] [address] Support Name Relationship Address Phone EJ SCHULTE Unavailable [address] [place] [address] EJ SCHULTE Unavailable [address] [place] [address] Insurance Providers: All historical and current Section [...] Name to Policy Number Spann WILVER MESSERT [facility] Aug 23, [id number] POLY ON,J PATIENT ION 2015 7 3 JUSTIN GEHA FEHB PREFERRED [facility] Aug 23, [id number] [phone] Bertha RICHARDSON PATIENT PROVIDER AL 2012 ALTH 7 136 JUSTIN ORGANIZAT GOV ION (PPO) GEHA FEHB PREFERRED GEHA Aug 23, [id number] [phone] AKUA KARLOSON,J PATIENT PROVIDER DAVID 2012 2 7 136 JUSTIN ORGANIZAT CTION ION (PPO) DENT MEDICARE MEDICARE PART Sep 23, PART B [id number] Bertha FENG PATIENT (WNR) (M) B [id number] 2 JUSTIN MEDICARE MEDICARE PART Sep 23, PART A [id number] Bertha FENG PATIENT (WNR) (M) A 2010 [id number] JUSTIN Selected Encounter This section includes the information on record at [place] for the Encounter. 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 Date/Time Primary/Secondary Diagnosis Name Provider Source Diagnosis Jan 27, 2022 PRIMARY [facility] (current) PEDRITO KEENAN [place] [facility] [place] [facility] 08:31 AM use of LA A [place] [facility] anticoagulants Jan 27, 2022 SECONDARY Encounter for PEDRITO KEENAN [place] [facility] [place] [place] 08:31 AM therapeutic drug LA A [place] [facility] level monitoring Plan of Treatment: Future Appointments (+ 6 [...] 16, 2022 01:00 PM [facility] [place] [facility] Apr 07, 2022 01:00 PM AMBULATORY - MEDICINE [place] [facility] [place] [place] [facility] Apr 07, 2022 01:30 PM AM[place]ULATORY - [place]ICINE [place] [facility] [place] [facility] Apr 15, 2022 02:30 PM AMBULATORY MEDICINE [place] [facility] [place] [facility] Apr 30, 2022 01:00 PM AMBULATORY - PS[place]CHIATRY [place] [facility] [place] [facility] Jun 25, 2022 08:00 AM AMBULATORY - MEDICINE [place] [facility] [place] [place] [facility] Jun 25, 2022 01:00 PM [facility] Lab Results: +/- 30 days of [...] Interpretation Reference Range Comment Feb 16, 2022 [facility] PT & INR ([place]) Specimen Ty pe: PLASMA 12:59 PM [place] [facility] No comment enter ed. Ordering Provid er: SUDHEER KEENAN Report Released Date/Time: Jan 27, 2022 08:43 AM Reporting Lab: [facility] [place] [facility] [address] [facility] [address] Performing Lab: [facility] [place] [facility] [address] [facility] [address] INR 2.3 PROTIME 26.1 H 10.0-13.1 Jan 26, 2022 [facility] PT & INR ([place]OU[place]) Specimen Ty pe: PLASMA 01:17 PM [place] [facility] No comment enter ed. Ordering Provid er: SERA MEEKS Report Released Date/Time: January 02, 2022 02:14 PM Reporting Lab: [facility] [place] [facility] [address] [facility] [address] Performing Lab: [facility] [place] [facility] [address] [facility] [address] INR 2.9 PROTIME 32.1 H 10.0-13.1 January 02, 2022 [facility] PT & INR ([place]OU[place]) Specimen Ty pe: PLASMA 12:50 PM [place] [facility] No comment enter ed. Ordering Provid er: SERA MEEKS Report Released Date/Time: Dec 19, 2021 11:58 AM Reporting Lab: [facility] [place] [facility] [address] [facility] [address] Performing Lab: [facility] [place] [facility] [address] [facility] [address] INR 2.9 PROTIME 31.9 H 10.0-13.1 Social [...] PM VA-TOBACCO FORMER USER [facility] Tobacco Use History This section includes a history of the smoking, or tobacco- related health factors, that were collected on or before the date of the Encounter. The data comes from the [place] facility where the Encounter took place. Date/Time Smoking Status/Tobacco Comment Facility Use Mar 20, 2021 01:00 VA-TOBACCO QUIT 15 YRS OR [facility] January 17, 2020 11:33 VA-TOBACCO FOR[facility]ER [facility] January 17, 2020 11:33 VA-TOBACCO QUIT 15 YRS OR [facility] Nov 23, 2018 01:22 VA-TOBACCO FORMER USER [facility] [place] [facility] Nov 23, 2018 01:22 VA-TOBACCO QUIT 15 YRS OR [facility] PM [place] [facility] January 18, 2018 12:53 QUIT TOBACCO USE 1-7 VA [facility] PM YEARS AGO PT STATES HE STOPP 4 YR AGO [place] [facility] Dec 09, 2016 01:07 QUIT TOBACCO USE > 7 [facility] Nov 11, 2015 01:13 QUIT TOBACCO USE > 7 [facility] Nov 19, 2004 03:17 HISTORY OF SMOKING [facility] Aug 10, 2003 01:03 HISTORY OF SMOKING [facility] Apr 12, 2002 02:36 QUIT TOBACCO USE > 7 [facility] PM YEARS AGO [facility] Encounter Notes: All associated encounter notes This section contains the clinical notes associated to the Encounter. Date/Time Encounter Note(s) Provider Source Jan 27, 2022 08:31 PHARMACY MEDICATION MGT NOTE: SUDHEER KEENAN [facility] AM LOCAL TITLE: PHARMACY ANTICOAGULATION NOTE [facility] STANDARD TITLE: PHARMACY MEDICATION MGT NOTE DATE OF NOTE: JAN 27, 2022@08:31 ENTRY DATE: JAN 27, 2022@08:31:59 AUTHOR: SUDHEER KEENAN COSIGNER: URGENCY: STATUS: COMPLETED REFERRED TO CLINIC ON: 06/14/07 PRIMARY CARE PHYSICIAN: Dr. James SHABAZZ INFORMATION: OTHER CONTACT INFORMATION: PATIENT'S PHONE #: [phone] home - can speak w/ Ej perez pt's verbal authorization [phone] [facility] LOCATION: [facility] COUMADIN THERAPY INITIATED ON: 1992 PLANNED [...] 7.5 5 7.5 5 7.5 5* 2.9 01/26/22 7.5 7.5 5 7.5 5 7.5 5 2.9 *Left vm * CORRECT DOSE: MISSED DOSES: BLEEDING: NEW EVENTS: PROCEDURES: MED CHANGES: continues APAP prn for arthritis; p er prev. DIET CHANGES: continues to have ~1 salad/week - per prev. EtOH: ~1-2 beers a day or less -per prev. TOBACCO: denies ; per prev. TABLETS: filled x 90 days on 08/11/21 - adequate supply, Rx suspended for 01/05/22 OTHER: takes dose in AM TABLET STRENGTH: 5mg ASSESSMENT: INR is therapeutic at 2.9 (goal 2-3) ; at 45mg/wk dose PLAN: Informed pt via voice message of his INR result from yesterday. Instructed pt via voice message to CONTINUE his milad marinelli warfarin dose of 45mg/week, taking 7.5mg daily except 5mg on //Wed. Informed pt of his next PT/INR scheduled on 02/16/22. Advised patient to contact this clinic with any questions, concerns, and/or changes in medications/healt h/diet. Pt was also asked to call this clinic in the event he has missed doses/ta gil extra doses or is taking other than as recorded above. Return to clinic: Jan ( 3 weeks) [facility] Time spent with patient: 5 minutes EDUCATION Provided with verbal instructions: Yes Provided with written instructions: No Provided patient education on the following: Dose INR 2.00-3.00: Therapeutic /yeimy/ SUDHEER KEENAN CLINICAL IT WEB DEVELOPMENT CONSULTANT Signed: 01/27/2022 08:42 Receipt Acknowledged By: 01/27/2022 08:46 /yeimy/ ZAK BOWER CPHT Clinical Gimp Buttonhole Machine Operator
--- OUTSIDE RECORDS SUMMARY | 2022-11-03 05:37 | XMS_ITS | Encounter Summary ---
:1945 Author Organization [facility] rs Address [address] [place] [address] Support Name Relationship Address Phone EJ SCHULTE Unavailable [address] [place] [address] EJ SCHULTE Unavailable [address] [place] [address] Insurance Providers: All historical and current Section [...] to Policy Number Spann WILVER [facility] Aug 23, [id number] [phone] POLY NIELSON,J PATIENT ION 2015 7 3 JUSTIN GEHA FEHB PREFERRED [facility] Aug 23, [id number] [phone] Bertha RICHARDSON PATIENT PROVIDER AL 2012 ALTH 7 136 JUSTIN ORGANIZAT GOV ION (PPO) GEHA FEHB PREFERRED GEHA Aug 23, [id number] [phone] [address]ON,J PATIENT PROVIDER DAVID 2012 2 7 136 JUSTIN ORGANIZAT CTION ION (PPO) DENT MEDICARE MEDICARE PART Sep 23, PART B [id number] Bertha FENG PATIENT (WNR) (M) B [id number] 2 JUSTIN MEDICARE MEDICARE PART Sep 23, PART A [id number] Bertha FENG PATIENT (WNR) (M) A 2010 [id number] JUSTIN Selected Encounter This section includes the information on record at [place] for the Encounter. Date/Time Encounter Type Encounter Description Reason Provider Source Jan 21, 2022 12:00 Outpatient Encounter COMMUNITY CARE AM CONSULT IHE Encounter Template Text not used by [place] Plan of Treatment: Future Appointments (+ 6 months) and Future Tests (+/- 45 days) The Plan of Treatment section includes future care activities for the patient from all [place] treatmentfacilities. This section includes future appointments and future orders which are active, pending orscheduled.Future Appointments This section includes appointments that were scheduled to occur 6 months from the date of the Encounter, up to a maximum of 20 appointments. The data comes from all [place] treatment facilities. Appointment Date/Time Appointment Type Appointment Facili ty Name Feb 16, 2022 01:00 PM AMBULATORY - MEDICINE [place] [facility] [place] [facility] Apr 07, 2022 01:00 PM AMBULATORY MEDICINE [place] [facility] [place] [facility] Apr 07, 2022 01:30 PM AMBULATORY MEDICINE [place] [facility] [place] [facility] Apr 15, 2022 02:30 PM AMBULATORY - MEDICINE [place] [facility] [place] [facility] Apr 30, 2022 01:00 PM AMBULATORY - PSYCHIATRY [facility] [place] [facility] Jun 25, 2022 08:00 AM AMBULATORY - MEDICINE [facility] [place] [facility] Jun 25, 2022 01:00 PM AMBULATORY - MEDICINE [place] [facility] [place] [facility] Lab Results: +/- 30 days of the encounter This section includes the Chemistry and Hematology Lab Results on record with [place] for the patient. Radiology Reports and Pathology Reports are provided separately, in subsequent sections.Lab Results This section contains the Chemistry/Hematology Results that were resulted 30 days before or 30 daysafter the date of the Encounter. Date/Time Source Result Type Result - Unit Interpretation Reference Range Comment Feb 16, 2022 [place] [facility] PT & INR ([place]) Specimen Ty pe: PLASMA 12:59 PM [facility] No comment enter ed. Ordering Provid er: SUDHEER KEENAN Report Released Date/Time: Jan 27, 2022 08:43 AM [facility] [address] [address] Performing Lab: [facility] [place] [facility] [address] [facility] [address] INR 2.3 PROTIME 26.1 H 10.0-13.1 Jan 26, 2022 [facility] PT & INR ([place]) Specimen Ty pe: PLASMA 01:17 PM [place] [facility] No comment enter ed. Ordering Provid er: SERA MEEKS Report Released Date/Time: January 02, 2022 02:14 PM Reporting Lab: [facility] [place] [facility] [address] [facility] [address] Performing Lab: [facility] [place] [facility] [address] [facility] [address] INR 2.9 PROTIME 32.1 H 10.0-13.1 January 02, 2022 [facility] PT & INR ([place]) Specimen Ty pe: PLASMA 12:50 PM [place] [facility] No comment enter ed. Ordering Provid er: SERA MEEKS Report Released Date/Time: Dec 19, 2021 11:58 AM Reporting Lab: [facility] [place] [facility] [address] [facility] [address] Performing Lab: [facility] [place] [facility] [address] [facility] [address] INR 2.9 PROTIME 31.9 H 10.0-13.1 Social History: Smoking Status (Most current) and Tobacco Use (All prior to encounter date) This section includes the most current, and the historical, smoking and tobacco-related health factors from the [place] facility where the Encounter took place.Current Smoking Status This section includes the most current smoking, or tobacco-related health factor, from the [place] facility where the Encounter took place. Date/Time Current Smoking Status Comment Facility Mar 20, 2021 01:00 PM VA-TOBACCO FORMER USER [place] [facility] [place] [facility] Tobacco Use History This section includes a history of the smoking, or tobacco- related health factors, that were collected on or before the date of the Encounter. The data comes from the [place] facility where the Encounter took place. Date/Time Smoking Status/Tobacco Comment Facility Use Mar 20, 2021 01:00 VA-TOBACCO QUIT 15 YRS OR [facility] PM [place] [facility] January 17, 2020 11:33 VA-TOBACCO FORMER USER [facility] [place] [facility] January 17, 2020 11:33 VA-TOBACCO QUIT 15 YRS OR [facility] AM [place] [facility] Nov 23, 2018 01:22 VA-TOBACCO FORMER USER [facility] [place] [facility] Nov 23, 2018 01:22 VA-TOBACCO QUIT 15 YRS OR [facility] PM MORE [place] [facility] January 18, 2018 12:53 QUIT TOBACCO USE 1-7 [facility] PM YEARS AGO PT STATES HE STOPP 4 YR AGO [place] [facility] Dec 09, 2016 01:07 QUIT TOBACCO USE > 7 [facility] PM YEARS AGO [place] [facility] Nov 11, 2015 01:13 QUIT TOBACCO USE > 7 [facility] Nov 19, 2004 03:17 HISTORY OF SMOKING [facility] PM quit 30 yrs ago [place] [facility] Aug 10, 2003 01:03 HISTORY OF SMOKING [facility] [place] [facility] Apr 12, 2002 02:36 QUIT TOBACCO USE > 7 [facility] Encounter Notes: All associated encounter notes This section contains the clinical notes associated to the Encounter. Date/Time Encounter Note(s) Provider Source Jan 21, 2022 12:00 AM NONVA CONSULT: [facility] LOCAL TITLE: COMMUNITY CARE-CONSULT RESULT NOTE [facility] STANDARD TITLE: NONVA CONSULT DATE OF NOTE: JAN 21, 2022 ENTRY DATE: FEB 06 022@13:14:29 AUTHOR: MAGDALENA MILLAN EXP COSIGNER: URGENCY: STATUS: COMPLETED VistA Imaging - Scanned Document SCANNED DOCUMENT SIGNATURE NOT REQUIRED Electronically Filed: 02/06/2022 by: MAGDALENA MILLAN WATER SERVICE DISPATCHER
--- OUTSIDE RECORDS SUMMARY | 2022-11-03 05:38 | XMS_ITS | Encounter Summary ---
:1945 Author Organization Department [facility] rs Address [address] [place] [address] Support Name Relationship Address Phone EJ SCHULTE Unavailable [address] [place] [address] EJ SCHULTE Unavailable [address] [place] [address] Insurance Providers: All historical and current Section [...] Name to Policy Number Spann WILVER [facility] Aug 23, [id number] [phone] POLY ON,J PATIENT ION 2015 7 3 JUSTIN GEHA FEHB PREFERRED MANUEL Aug 23, [id number] [phone] AKUA [place],J PATIENT PROVIDER MICHELA 2012 ALTH 7 136 JUSTIN ORGANIZAT GOV ION (PPO) GEHA FEHB PREFERRED GEHA Aug 23, [id number] [phone] AKUA RDON,J PATIENT PROVIDER DAVID 2012 2 7 136 JUSTIN ORGANIZAT CTION ION (PPO) DENT MEDICARE MEDICARE PART Sep 23, PART A [id number] Bertha FENG PATIENT (WNR) (M) A [id number] 2 JUSTIN MEDICARE MEDICARE PART Sep 23, PART B [id number] Bertha FENG PATIENT (WNR) (M) B 2010 MJ 2 JUSTIN Selected Encounter This section includes the information on record at [place] for the Encounter. Date/Time Encounter Type Encounter Reason Provider Source Description Feb 16, 2022 REPAIR & ADJUST OPTOMETRY ICD-10-CM Z46.0 OLIMPIA GOLDBERG 01:00 PM SPECTACLES Encounter for ARNAV fit/adjst of spectacles and contact lenses with Provider Comments: Encounter for Fitting and Adjustment of Spectacles and Contact Lenses IHE Encounter Template Text not used by [facility] Assessments - Encounter Diagnoses This section includes the primary and secondary diagnoses documented for the Encounter. Date/Time Primary/Secondary Diagnosis Name Provider Source Diagnosis Feb 16, 2022 PRIMARY Encounter for [place]LIMP[place]OL[place]G [place] [facility] [place] 12:55 PM fit/adjst of ARNAV [place] [facility] spectacles and contact lenses Plan of Treatment: Future Appointments (+ 6 months) and Future Tests (+/- 45 days) The Plan of Treatment section includes future care activities for the patient from all [place] treatmentfacilities. This section includes future appointments and future orders which are active, pending orscheduled.Future Appointments This section includes appointments that were scheduled to occur 6 months from the date of the Encounter, up to a maximum of 20 appointments. The data comes from all [place] treatment facilities. Appointment Date/Time Appointment Type Appointment Facili ty Name Apr 07, 2022 01:00 PM AM[place]ULATORY [place] [facility] [place] [facility] Apr 07, 2022 01:30 PM AMBULATORY [place]IC[place] [facility] [place] [facility] Apr 15, 2022 02:30 PM AMBULATORY [place]ICINE [place] [facility] [place] [facility] Apr 30, 2022 01:00 PM AMBULATORY - PS[place]CHIATRY [place] [facility] [place] [facility] Jun 25, 2022 08:00 AM AMBULATORY - MEDICINE [place] [facility] [place] [facility] Jun 25, 2022 01:00 PM AM[place]ULATORY [place]ICINE [place] [facility] [place] [facility] Jul 30, 2022 01:30 PM AMBULATORY - PS[place]CHIATRY [place] [facility] [place] [facility] Aug 07, 2022 02:00 PM AMBULATORY MEDICINE [place] [facility] [place] [facility] Lab Results: +/- 30 days of the encounter This section includes the Chemistry and Hematology Lab Results on record with [place] for the patient. Radiology Reports and Pathology Reports are provided separately, in subsequent sections.Lab Results This section contains the Chemistry/Hematology Results that were resulted 30 days before or 30 daysafter the date of the Encounter. Date/Time Source Result Type Result - Unit Interpretation Reference Range Comment Mar 13, 2022 11:00 [facility] PT & INR ([place]) Specimen Type: PLASMA AM [place] [facility] No comment enter ed. Ordering Provid er: MARQUES CHOWDHURY Report Released Date/Time: Feb 16, 2022 04:58 PM Reporting Lab: [facility] [place] [facility] [address] [facility] [address] Performing Lab: [place] [facility] [facility] [address] [facility] [address] INR 2.5 PROTIME 28.3 H 10.0-13.1 Feb 16, 2022 [facility] PT & INR ([place]OU[place]ADIN) Specimen Ty pe: PLASMA 12:59 PM [place] [facility] No comment enter ed. Ordering Provid er: SUDHEER KEENAN Report Released Date/Time: Jan 27, 2022 08:43 AM Reporting Lab: [facility] [place] [facility] [address] [facility] [address] Performing Lab: [facility] [place] [facility] [address] [facility] [address] INR 2.3 PROTIME 26.1 H 10.0-13.1 Jan 26, 2022 [facility] PT & INR ([place]OUMADIN) Specimen Ty pe: PLASMA 01:17 PM [place] [facility] No comment enter ed. Ordering Provid er: SERA MEEKS Report Released Date/Time: January 02, 2022 02:14 PM Reporting Lab: [facility] [place] [facility] [address] [facility] [address] Performing Lab: [facility] [place] [facility] [address] [facility] [address] INR 2.9 PROTIME 32.1 H 10.0-13.1 Social History: Smoking Status (Most current) and Tobacco Use (All prior to encounter date) This section includes the most current, and the historical, smoking and tobacco-related health factors from the [place] facility where the Encounter took place.Current Smoking Status This section includes the most current smoking, or tobacco-related health factor, from the [place] facility where the Encounter took place. Date/Time Current Smoking Status Comment Facility Mar 20, 2021 01:00 PM VA-TOBACCO FORMER USER [facility] Tobacco Use History This section includes a history of the smoking, or tobacco- related health factors, that were collected on or before the date of the Encounter. The data comes from the [place] facility where the Encounter took place. Date/Time Smoking Status/Tobacco Comment Facility Use Mar 20, 2021 01:00 VA-TOBACCO QUIT 15 YRS OR [facility] PM [place] [facility] January 17, 2020 11:33 VA-TOBACCO FORMER USER [facility] [place] [facility] January 17, 2020 11:33 VA-TOBACCO QUIT 15 YRS [facility] Nov 23, 2018 01:22 VA-TOBACCO FORMER USER [facility] [place] [facility] Nov 23, 2018 01:22 VA-TOBACCO QUIT 15 YRS OR [facility] PM [place] [facility] January 18, 2018 12:53 QUIT TOBACCO USE 1-7 [facility] PM YEARS AGO PT STATES HE STOPP 4 YR AGO [place] [facility] Dec 09, 2016 01:07 QUIT TOBACCO USE > 7 [facility] PM YEARS AGO [place] [facility] Nov 11, 2015 01:13 QUIT TOBACCO USE > 7 [facility] Nov 19, 2004 03:17 HISTORY OF SMOKING [facility] Aug 10, 2003 01:03 HISTORY OF SMOKING [facility] [place] [facility] Apr 12, 2002 02:36 QUIT TOBACCO USE > 7 [facility] PM YEARS AGO [facility] Encounter Notes: All associated encounter notes This section contains the clinical notes associated to the Encounter. Date/Time Encounter Note(s) Provider Source Feb 16, 2022 12:54 PM OPTOMETRY NOTE: [place] GOL[place]ERG [place] [facility] LOCAL TITLE: OPTOMETRY NOTE [facility] STANDARD TITLE: OPTOMETRY NOTE DATE OF NOTE: FEB 16, 2022@12:54 ENTRY DATE: FEB 16, 2022@12:54:12 AUTHOR: OLIMPIA GOLDBERG EXP COSIGNER: URGENCY: STATUS: COMPLETED Fit and adjusted 2 pair of eyeglasses per patien ts request. /yeimy/ [facility] Signed: 02/16/2022 12:55
--- OUTSIDE RECORDS SUMMARY | 2022-11-03 05:38 | XMS_ITS ---
:1945 Author Organization [facility] rs Address [address] [place] [id number] Support Name Relationship Address Phone EJ SCHULTE Unavailable [address] [place] [address] EJ SCHULTE Unavailable [address] [place] [address] Insurance Providers: All historical and current Section [...] Name to Policy Number Spann WILVER MESSERT [facility] Aug 23, [id number] [phone] POLY ON,J PATIENT ION 2015 7 3 JUSTIN GEHA FEHB PREFERRED [facility] Aug 23, [id number] [phone] Bertha RICHARDSON PATIENT PROVIDER AL 2012 ALTH 7 136 JUSTIN ORGANIZAT GOV ION (PPO) GEHA FEHB PREFERRED GEHA Aug 23, [id number] [phone] AKUA KARLOSON,J PATIENT PROVIDER DAVID 2012 2 7 136 JUSTIN ORGANIZAT CTION ION (PPO) DENT MEDICARE MEDICARE PART Sep 23, PART A [id number] Bertha FENG PATIENT (WNR) (M) A [id number] 2 JUSTIN MEDICARE MEDICARE PART Sep 23, PART B [id number] Bertha FENG PATIENT (WNR) (M) B 2010 [id number] JUSTIN Selected Encounter This section includes the information on record at DC for the Encounter. Date/Time Encounter Type Encounter Reason Provider Source Description Feb 16, 2022 HC PRO PHONE TELEPHONE/ANCILLA ICD-10-CM Z51.81 AALIYAH CHOWDHURY 04:43 PM CALL 5-10 MIN RY Encounter for therapeutic drug level monitoring with Provider Comments: Therapeutic Drug Level Monitoring IHE Encounter Template Text not used by [facility] Assessments - Encounter Diagnoses This section includes the primary and secondary diagnoses documented for the Encounter. 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 This section includes future appointments and future orders which are active, pending orscheduled.Future Appointments This section includes appointments that were scheduled to occur 6 months from the date of the Encounter, up to a maximum of 20 appointments. The data comes from all DC treatment facilities. Appointment Date/Time Appointment Type Appointment Facili ty Name Apr 07, 2022 01:00 PM AMBULATORY - MEDICINE [facility] [place] [facility] Apr 07, 2022 01:30 PM AMBULATORY - MEDICINE [facility] [place] [facility] Apr 15, 2022 02:30 PM AMBULATORY - MEDICINE [facility] [place] [facility] Apr 30, 2022 01:00 PM AMBULATORY - PSYCHIATRY [facility] [place] [facility] Jun 25, 2022 08:00 AM AMBULATORY - MEDICINE [facility] [place] [facility] Jun 25, 2022 01:00 PM AMBULATORY - MEDICINE [facility] [place] [facility] Jul 30, 2022 01:30 PM AMBULATORY - PSYCHIATRY [facility] [place] [facility] Aug 07, 2022 02:00 PM AMBULATORY - MEDICINE [facility] [place] [facility] Lab Results: +/- 30 days of the encounter This section includes the Chemistry and Hematology Lab Results on record with [facility] for the patient. Radiology Reports and Pathology Reports are provided separately, in subsequent sections.Lab Results This section contains the Chemistry/Hematology Results that were resulted 30 days before or 30 daysafter the date of the Encounter. Date/Time Source Result Type Result - Unit Interpretation Reference Range Comment Mar 13, 2022 11:00 [facility] PT & INR ([facility]) Specimen Type: PLASMA AM [facility] No comment enter ed. Ordering Provid er: MARQUES CHOWDHURY Report Released Date/Time: Feb 16, 2022 04:58 PM Reporting Lab: [facility] [address] [facility] [id number] Performing Lab: [facility] [address] [facility] [address] INR 2.5 PROTIME 28.3 H 10.0-13.1 Feb 16, 2022 [facility] PT & INR ([place]) Specimen Ty pe: PLASMA 12:59 PM [facility] No comment enter ed. Ordering Provid er: SUDHEER KEENAN Report Released Date/Time: Jan 27, 2022 08:43 AM Reporting Lab: [facility] [address] [facility] [id number] Performing Lab: [facility] [address] [facility] [address] INR 2.3 PROTIME 26.1 H 10.0-13.1 Jan 26, 2022 [facility] PT & INR ([place]) Specimen Ty pe: PLASMA 01:17 PM [facility] No comment enter ed. Ordering Provid er: SERA MEEKS Report Released Date/Time: January 02, 2022 02:14 PM Reporting Lab: [facility] [address] [facility] [address] Performing Lab: [facility] [place] [facility] [address] [facility] [id number] INR 2.9 PROTIME 32.1 H 10.0-13.1 Social History: Smoking Status (Most current) and Tobacco Use (All prior to encounter date) This section includes the most current, and the historical, smoking and tobacco-related health factors from the DC facility where the Encounter took place.Current Smoking Status This section includes the most current smoking, or tobacco-related health factor, from the DC facility where the Encounter took place. Date/Time Current Smoking Status Comment Facility Mar 20, 2021 01:00 PM [facility]-TOBACCO [facility] Tobacco Use History This section includes a history of the smoking, or tobacco- related health factors, that were collected on or before the date of the Encounter. The data comes from the DC facility where the Encounter took place. Date/Time Smoking Status/Tobacco Comment Facility Use Mar 20, 2021 01:00 VA-TOBACCO QUIT 15 YRS OR [facility] PM MORE [place] [facility] January 17, 2020 11:33 VA-TOBACCO FORMER USER [facility] AM [place] [facility] January 17, 2020 11:33 VA-TOBACCO QUIT 15 YRS OR [facility] AM MORE [place] [facility] Nov 23, 2018 01:22 VA-TOBACCO FORMER USER [facility] PM [place] [facility] Nov 23, 2018 01:22 VA-TOBACCO QUIT 15 YRS OR [facility] PM MORE [place] [facility] January 18, 2018 12:53 QUIT TOBACCO USE 1-7 [facility] PM YEARS AGO PT STATES HE STOPP 4 YR AGO [place] [facility] Dec 09, 2016 01:07 QUIT TOBACCO USE > 7 [facility] PM YEARS AGO [place] [facility] Nov 11, 2015 01:13 QUIT TOBACCO USE > 7 [facility] PM YEARS AGO [place] [facility] Nov 19, 2004 03:17 HISTORY OF SMOKING [facility] PM quit 30 yrs ago [place] [facility] Aug 10, 2003 01:03 HISTORY OF SMOKING [facility] PM [place] [facility] Apr 12, 2002 02:36 QUIT TOBACCO USE > 7 [facility] PM YEARS AGO [facility] Encounter Notes: All associated encounter notes This section contains the clinical notes associated to the Encounter. Date/Time Encounter Note(s) Provider Source Feb 16, 2022 04:43 PM PHARMACY MEDICATION MGT NOTE: MARQUES CHOWDHURY [facility] LOCAL TITLE: PHARMACY ANTICOAGULATION NOTE [facility] STANDARD TITLE: PHARMACY MEDICATION MGT NOTE DATE OF NOTE: FEB 16, 2022@16:43 ENTRY DATE: FEB 16, 2022@16:43:12 AUTHOR: MARQUES CHOWDHURY COSIGNER: URGENCY: STATUS: COMPLETED REFERRED TO CLINIC ON: 06/14/07 PRIMARY CARE PHYSICIAN: Dr. James SHABAZZ INFORMATION: OTHER CONTACT INFORMATION: PATIENT'S PHONE #: [phone] home - can speak w/ Ej per pt's verbal authorization [phone] [facility] LOCATION: [facility] COUMADIN THERAPY INITIATED ON: 1992 [...] 7.5 5 7.5 5 7.5 5 2.9 02/16/22 7.5 5 7.5 5 7.5 5 7.5 2.3 *spoke with pt * CORRECT DOSE: Yes, but switched 5 mg days to M/W /F MISSED DOSES: Denies BLEEDING: Denies NEW EVENTS: No changes PROCEDURES: none planned MED CHANGES: continues APAP prn for arthritis; n ot as much as previously DIET CHANGES: continues to have ~1 salad/week - per prev. EtOH: ~1-2 beers a day or less -per prev. TOBACCO: denies ; per prev. TABLETS: filled x 90 days on 01/05/22 OTHER: takes dose in AM TABLET STRENGTH: 5mg ASSESSMENT: INR is therapeutic at 2.3 (goal 2-3) ; at 45mg/wk dose PLAN: Informed pt via telephone of his INR resul t from today. Instructed pt via telephone to CONTINUE his weekly warfarin dose of 45mg/week, taking 7.5mg daily except 5mg on /Wed/Wed. Informed pt of his next PT/INR scheduled on 03/16/22. Return to clinic: Feb 4 weeks, [facility] Time spent with patient: 5 minutes EDUCATION Provided with verbal instructions: Yes Provided with written instructions: No Barriers to learning: No Readiness to learn: Yes Specific dose directions reviewed: Yes Opportunity for questions/discussion: Yes Reports understanding of instructions: Yes Further learning needs: No Provided patient education on the following: None INR 2.00-3.00: Therapeutic /es/ MARQUES CHOWDHURY, PHARM.D., CACP STAFF CLINICAL PHARMACIST Signed: 02/16/2022 16:57 Receipt Acknowledged By: * AWAITING SIGNATURE * ZAK BOWER
--- OUTSIDE RECORDS SUMMARY | 2022-11-03 05:39 | XMS_ITS | Encounter Summary ---
:1945 Author Organization Department [facility] rs Address [address] [place] [id number] Support Name Relationship Address Phone EJ SCHULTE Unavailable [address] [place] [address] EJ SCHULTE Unavailable [address] [place] [address] Insurance Providers: All historical and current Section [...] Name to Policy Number Spann WILVER PRESCRIPT [facility] Aug 23, [id number] [phone] POLY ON,J PATIENT ION 2015 7 3 JUSTIN GEHA FEHB PREFERRED MANUEL Aug 23, [id number] [phone] AKUA PHOENIXJ PATIENT PROVIDER MICHELA 2012 ALTH 7 136 JUSTIN ORGANIZAT GOV ION (PPO) GEHA FEHB PREFERRED GEHA Aug 23, [id number] [phone] AKUA RDON,J PATIENT PROVIDER DAVID 2012 2 7 136 JUSTIN ORGANIZAT CTION ION (PPO) DENT MEDICARE MEDICARE PART Sep 23, PART A [id number] Bertha FENG PATIENT (WNR) (M) A [id number] 2 JUSTIN MEDICARE MEDICARE PART Sep 23, PART B [id number] Bertha FENG PATIENT (WNR) (M) B 2010 MJ 2 JUSTIN Selected Encounter This section includes the information on record at [facility] for the Encounter. Date/Time Encounter Type Encounter Reason Provider Source Description Apr 07, 2022 EYE EXAM OPTOMETRY ICD-10-CM MELVINA BOWENS 01:00 PM ESTABLISH L71.8 Other E PATIENT rosacea with Provider Comments: Other Rosacea IHE Encounter Template Text not used by [facility] Assessments - Encounter Diagnoses This section includes the primary and secondary diagnoses documented for the Encounter. Date/Time Primary/Secondary Diagnosis Name Provider Source Diagnosis Apr 07, 2022 PRIMARY Other rosacea MELVINA BOWENS [facility] WST RN 01:45 PM [facility] [place] [facility] Apr 07, 2022 SECONDARY Combined forms of MELVINA BOWENS [facility] WSTRN 01:45 PM age-related [facility] [place] [facility] cataract, bilateral Apr 07, 2022 SECONDARY Low-tension MELVINA BOWENS [facility] WSTR N 01:45 PM glaucoma, [facility] bilateral, mild stage Apr 07, 2022 SECONDARY Meibomian gland MELVINA BOWENS [facility] W STRN 01:45 PM dysfunction of E [place] [facility] left eye, unspecified eyelid Apr 07, 2022 SECONDARY Meibomian gland M[facility]INA BOWENS [facility] 01:45 PM dysfunction of [facility] [place] [facility] right eye, unspecified eyelid Plan of Treatment: Future Appointments (+ 6 [...] Appointment Type Appointment Facili ty Name Apr 15, 2022 02:30 PM AMBULATORY [facility]IC[facility] [place] [facility] Apr 30, 2022 01:00 PM AMBULATORY - PSYCHIATRY [facility] [place] [facility] Jun 25, 2022 08:00 AM [facility] [place] [facility] Jun 25, 2022 01:00 PM [facility] [place] [facility] Jul 30, 2022 01:30 PM AMBULATORY - [facility] [place] [facility] Aug 07, 2022 02:00 PM [facility] [place] [facility] Lab Results: +/- 30 days of the [...] Result - Unit Interpretation Reference Range Comment May 05, 2022 [facility] PT & INR ([facility]IN) Specimen Ty pe: PLASMA 11:55 AM [place] [facility] No comment enter ed. Ordering Provid er: SERA MEEKS Report Released Date/Time: May 05, 2022 11:54 AM Reporting Lab: [facility] [place] [facility] [address] [address] Performing Lab: [facility] [place] [facility] [address] [address] INR 3.0 PROTIME 33.6 H 10.0-13.1 Apr 28, 2022 [facility] PT & INR ([place]) Specimen Ty pe: PLASMA 01:14 PM [place] [facility] No comment enter ed. Ordering Provid er: SERA MEEKS Report Released Date/Time: Mar 13, 2022 03:43 PM Reporting Lab: [facility] [place] [facility] [address] [address] Performing Lab: [facility] [place] [facility] [address] [address] INR 4.3 PROTIME 47.6 H 10.0-13.1 Mar 13, 2022 11:00 [facility] PT & INR ([facility]) Specimen Type: PLASMA AM [place] [facility] No comment enter ed. Ordering Provid er: MARQUES CHOWDHURY Report Released Date/Time: Feb 16, 2022 04:58 PM Reporting Lab: [facility] [place] [facility] [address] [address] Performing Lab: [facility] [place] [address] [place] [address] INR 2.5 PROTIME 28.3 H 10.0-13.1 Social History: Smoking Status (Most [...] PM VA-TOBACCO FORMER USER [facility] Tobacco Use History This section includes a history of the smoking, or tobacco- related health factors, that were collected on or before the date of the Encounter. The data comes from the [facility] facility where the Encounter took place. Date/Time Smoking Status/Tobacco Comment Facility Use Mar 20, 2021 01:00 VA-TOBACCO QUIT 15 YRS OR [facility] [place] [facility] January 17, 2020 11:33 VA-TOBACCO FORMER USER [facility] [place] [facility] January 17, 2020 11:33 VA-TOBACCO QUIT 15 YRS OR [facility] [place] [facility] Nov 23, 2018 01:22 VA-TOBACCO FORMER USER [facility] PM [place] [facility] Nov 23, 2018 01:22 VA-TOBACCO QUIT 15 YRS OR [facility] PM [place] [facility] January 18, 2018 12:53 QUIT TOBACCO USE 1-7 [facility] PM YEARS AGO PT STATES HE STOPP 4 YR AGO [place] [facility] Dec 09, 2016 01:07 QUIT TOBACCO USE > 7 [facility] PM YEARS AGO [place] [facility] Nov 11, 2015 01:13 QUIT TOBACCO USE > 7 [facility] PM YEARS AGO [place] [facility] Nov 19, 2004 03:17 HISTORY OF SMOKING [facility] PM quit 30 yrs ago [place] [facility] Aug 10, 2003 01:03 HISTORY OF SMOKING [facility] PM [place] [facility] Apr 12, 2002 02:36 QUIT TOBACCO USE > 7 [facility] PM YEARS A[facility] Encounter Notes: All associated encounter notes This section contains the clinical notes associated to the Encounter. Date/Time Encounter Note(s) Provider Source Apr 07, 2022 01:39 OPTOMETRY NOTE: SIM BOWENS [facility] N PM LOCAL TITLE: OPTOMETRY NOTE [facility] STANDARD TITLE: OPTOMETRY NOTE DATE OF NOTE: APR 07, 2022@13:39 ENTRY DATE: APR 07, 2022@13:40 AUTHOR: SIM BOWENS EXP COSIGNER: URGENCY: STATUS: COMPLETED I saw this patient in conjunction with student a nd agree with stated findings and plan as noted below after reviewing both the history and repeating brunson elements of the physical exam now. Patient last seen here Sep 2021 returns today for pressure check with dilation of fundus photos. He has a history of bilateral low-tension glaucoma, cataracts as wel l as rosacea facies with chronic meibomian gland dysfunction each eye. He reports good compliance and persistency with use of latanoprost at bedtime e ach eye. Anterior segment evaluation shows rosacea facies with meibomian gland dysfunction but with clear cornea. There is no e vidence of pseudoexfoliation or pigment dispersion either eye. Previously obt ain pachymetry is somewhat thicker than average at 567 ??m each eye. 1+ nuclear sclerosis with 2+ posterior subcapsul ar cataract right eye 1+ nuclear sclerosis with trace posterior subcapsul ar cataract left eye. Intraocular pressure remeasured by me now and no salbador to be 10 mmHg each eye with more than 20% reduction in IOP compared to pretreatment level of 15 mmHg each eye. Target pressure is 12 mmHg or less. Dilated fundus examination shows 0.70 cup-to-dis c ratio with superior greater than inferior notching left eye 0.7 cup-to-disc ratio left eye with superior greater than inferior notching but no splinter h emorrhage either eye. Remainder of retinal examination is unremarkable . Impression: Rosacea facies with meibomian gland dysfunction currently asymptomatic with regard to dry eye symptoms. Nuclear sclerotic and posterior subcapsular milo racts right greater than left eye currently functioning well visually and with out complaints of decreased vision or glare and halo with night driving.. Bilateral mild stage low-tension glaucoma with s table intraocular pressure at target on latanoprost at bedtime each eye. Plan: Patient education as noted above review ex am findings now. Despite dense central PSC cataract right eye he indicate s his vision is good with no issues with nighttime glare and halo. He underst ands he may require cataract surgery in the near future. Renew latanoprost now for mail out. Return in 6 months for comprehensive exam with repeat field testing and optic nerve OCT. R eturn sooner if need be. Ophthalmic medication reconciliation: He is pres cribed latanoprost 1 drop at bedtime each eye for bilateral mild stage low-te nsion glaucoma. He verbalizes understanding of use of latanoprost as well as d osing frequency. /yeimy/ Sim Bowens OD CHIEF OF OPTOMETRY Signed: 04/07/2022 13:45 Apr 07, 2022 12:46 OPTOMETRY NOTE: FREDDY UNGER [facility] PM LOCAL TITLE: OPTOMETRY [facility] STAND[facility] TITLE: OPTOMETRY NOTE DATE OF NOTE: APR 07, 2022@12:46 ENTRY DATE: APR 07, 2022@12:46:52 AUTHOR: MIA UNGER EXP COSIGNER: SIM TAYLOR URGENCY: STATUS: COMPLETED Active problems - Computerized Problem List is t he source for the followin. Cardiac pacemaker in situ 2. History of mechanical heart valve replacemen t 3. Impaired fasting glucose 4. Long-term current use of anticoagulant 5. Congestive heart failure 6. Coronary artery disease 7. Hyperlipidemia (SNOMED CT 48813519) 8. Headache * 9. Cervicalgia (SNOMED CT 59769825) 10. STRESS TEST 11. L/T (CURRENT) USE - ANTICOAG 12. Overweight 13. Hearing loss * 14. Refractive error 15. Carcinoma, Basal Cell 16. Allergic rhinitis * 17. Heme Positive Stool 18. Essential hypertension 19. Gastroesophageal reflux disease (SNOMED CT 2 [id number]) 20. Aortic valve disorders 21. Chronic post-traumatic s tress disorder following combat (SNOMED CT Active Outpatient Medications (including Supplie s): Active Outpatient Medications Status 1) ASPIRIN 81MG [...] ONE TABLET BY MOUTH ONCE ACTIVE DAILY 5) FERROUS GLUCONATE 324MG TAB TAKE ONE TABLET B Y MOUTH ACTIVE ONCE DAILY TO SUPPLEMENT IRON 6) LANSOPRAZOLE (PREVACID) 30MG CAP *BRAND* TAKE ONE ACTIVE CAPSULE BY MOUTH DAILY 7) LATANOPROST 0.005% OPH SOLN INSTILL 1 DROP IN TO EACH ACTIVE EYE AT BEDTIME TO REDUCE PRESSURE IN THE EYE 8) LORATADINE 10MG TAB TAKE ONE TABLET BY MOUTH ONCE ACTIVE DAILY FOR ALLERGY 9) LORAZEPAM 0.5MG TAB TAKE ONE TABLET BY MOUTH TWICE ACTIVE DAILY NEEDED FOR ANXIETY/NERVES 10) TAMSULOSIN HCL 0.4MG CAP TAKE ONE CAPSULE BY MOUTH ACTIVE (S) DAILY 11) VALSARTAN 40MG TAB TAKE ONE TABLET BY MOUTH ONCE ACTIVE DAILY 12) WARFARIN NA ([place]) 5MG TAB TAKE D IRECTED ACTIVE BY MOUTH WITH DIRECTIONS PROVIDED FROM YOUR VA PROVIDER ([facility]ULATION CLINIC extension [id number]) FOR THE PREVENTION OF BLOOD MARIA TERESA TS 13) ZOLPIDEM TARTRATE 10MG TAB TAKE ONE TABLET B Y MOUTH ACTIVE AT BEDTIME NEEDED SLEEP Active Non-VA Medications Status 1) Non-VA COENZYME Q10 CAP/TAB ONE TABLET BY TORY TH ONCE ACTIVE DAILY NEEDED 14 Total Medications Allergies: SIMVASTATIN, LOSARTAN, PRAVASTATIN All medications including th ose prescribed by outside VA's, community providers, and all OTC meds were review ed and reconciled with patient to the best of their abilities. This 76 year old MALE is seen today for 6 month F/U for DFE, IOP check and fundus photos. Chief Complaint: Pt reports he is compliant with glaucoma drops. OHx: (-) Pain: (-) LIZARRAGA: (-) Diplopia: (-) Flashes: (-) Floaters: (-) Amaurosis Fugax/Tia's: (-) Eye Injury: (+) Eye Surgery:Status post excision benign neop lasm right upper lid (-) TBI FOHx: (-) Glaucoma/ARMD/Blindness (-) Smoker/Length of Time/PPD: Current Rx with last BCVA: OD: -0.75 -0.75 X105 OS: 0.00 -1.75 X085 Add: +2.50 DVA ( )sc ( x)cc OD: 20/20 OS: 20/20-2 Pupils: PERRL (-)APD EOMs: SAFE OU, (-)Pain/Diplopia CVF (facial, peripheral): FTFC OU All the above pe rformed by student, reviewed by attending Anterior segment: Performed by student, repeated by attending Lids: dermatochalasis, ptosis, MGD OU Conj: white and quiet OU Cornea: clear OU AC: open OU Iris: flat and clear OU Lens: 2 nuclear sclerosis with 1 cortical spoki ng and 1 central PSC changes right eye 2 nuclear scleros is with 1+ cortical spoking, tr PSC left eye no pseudoexfo liation each eye Tonometry:Thomason Performed by student, reviewed by attending OD 15 mmHg OS 15 mmHg Time:1:03 PM re-check IOP: OD: 10 OS: 10 PreTreatment IOP: OD:15 OS:15 Time 1:34 pm Previous Pachymetry: OD:567 OS:565 Fundus exam: Dilated: xx @ 1:05 pm Non dilated: Dilating Drops: 1GTT 1 % Tropicamide OU & 1GTT 2 .5% Phenylephrine OU (Pt. ed. on side effects, dilation warning given and verbal consent obtained) Patient advised not to drive if they feel they h ave any symptoms which could affect their ability to drive safely. Patient ad vised not to engage in any activities which could put themselves or others at risk if they feel they have any symptoms which could affect their ability to perform those activities safely. Performed by student, repeated by attending Vit: clear OU C/D: 0.75/0.75 OD, 0.70/0.70 OS Macula: flat and clear OU PPole: clear A/V: 2/3 Vessels: normal caliber OU Periph: flat and intact (-)holes, tears, detach ments 360 OU Impression: 1.Low-tension glaucoma, indeterminate stage seco ndary to unreliable visual field testing but pre viously noted to be mild stage each eye with stable intraocular pressure with more than 15% reductio n in IOP compared to pretreatment level. Fundus photos taken today re main stable compared to previous imaging. 2.Combined senile cataracts OU Plan: 1.Pt educated and understand s. Advised to continue latanoprost qhs OU. Follow up in 6 months at [facility] with repeatr HFV and RNFL OCT . 2.Pt educated and understands. Monitor for progr ession at [facility]. Return to Clinic 6 mo CEE w/ repeat HFV and RNFL OCT or earlier PRN Not addressed today: -Refractie error -Dry eye syndrome Patient Education: Glaucoma: Patient was educated regarding glaucoma/glaucoma suspect as well as the natural history of this diagnosis including prognosis. Stress importance of compliance and persistency with glaucoma medication when prescribed, timely follow up as well as the role of ancillary testing. Exclusion criteria for anc illary testing include significantly reduced acuity, mental sta tus changes affecting the patient's ability to attend to the test or other physical limitations that would prohibit t he patient's ability to participate in testing. /yeimy/ ARACELY UNGER OPTOMETRY STUDENT Signed: 04/07/2022 16:47 /yeimy/ Sim Bowens OD CHIEF OF OPTOMETRY Cosigned: 04/08/2022 06:39
--- OUTSIDE RECORDS SUMMARY | 2022-11-03 05:39 | XMS_ITS ---
:1945 Author Organization [facility] rs Address [address] [place] [address] 18233 Support Name Relationship Address Phone EJ SCHULTE Unavailable [address] [place] [address] EJ SCHULTE Unavailable [address] [place] [address] Insurance Providers: All historical and current Section [...] WILVER MESSERT [facility] Aug 23, [id number] [phone] POLY ON,J PATIENT ION 2015 7 3 JUSTIN GEHA FEHB [facility] Aug 23, [id number] [phone] Bertha RICHARDSON PATIENT PROVIDER AL 2012 ALTH 7 136 JUSTIN ORGANIZAT GOV ION (PPO) GEHA FEHB PREFERRED GEHA Aug 23, [id number] [phone] AKUA KARLOSON,J PATIENT PROVIDER DAVID 2012 2 7 136 JUSTIN ORGANIZAT CTION ION (PPO) DENT MEDICARE MEDICARE PART Sep 23, PART B [id number] Bertha FENG PATIENT (WNR) (M) B 2010 [id number] 2 JUSTIN MEDICARE MEDICARE PART Sep 23, PART A [id number] Bertha FENG PATIENT (WNR) (M) A 2010 [id number] 2 JUSTIN Selected Encounter This section includes the information on record at OR for the Encounter. Date/Time Encounter Type Encounter Reason Provider Source Description Mar 13, 2022 HC PRO PHONE TELEPHONE/ANCILLA ICD-10-CM Z51.81 VIANEY MEEKS 03:23 PM CALL 5-10 MIN RY Encounter for [place] therapeutic drug level monitoring with Provider Comments: Therapeutic Drug Level Monitoring IHE Encounter Template Text not used by [facility] Assessments - Encounter Diagnoses This section includes the primary and secondary diagnoses documented for the Encounter. Date/Time Primary/Secondary Diagnosis Name Provider Source Diagnosis Mar 13, 2022 PRIMARY Encounter for EDITH MEEKS [facility] 03:23 PM therapeutic drug [facility] level monitoring Mar 13, 2022 SECONDARY termination clerk (current) EDITH MEEKS [facility] 03:23 PM use of [facility] anticoagulants Mar 13, 2022 SECONDARY Presence of other EDITH MEEKS [facility] 03:23 PM heart-valve [facility] replacement Plan of Treatment: Future Appointments (+ 6 months) and Future Tests (+/- 45 days) The Plan of Treatment section includes future care activities for the patient from all [place] treatmentfacilities. This section includes future appointments and future orders which are active, pending orscheduled.Future Appointments This section includes appointments that were scheduled to occur 6 months from the date of the Encounter, up to a maximum of 20 appointments. The data comes from all [place] treatment facilities. Appointment Date/Time Appointment Type Appointment Facili ty Name Apr 07, 2022 01:00 PM AMBULATORY - MEDICINE [place] [facility] [place] [facility] Apr 07, 2022 01:30 PM AMBULATORY - MEDICINE [place] [facility] [place] [facility] Apr 15, 2022 02:30 PM AMBUL[facility]ORY - MEDICINE [facility] Apr 30, 2022 01:00 PM AMBULATORY - PSYCHIATRY [place] [facility] [place] [facility] Jun 25, 2022 08:00 AM AMBULATORY - MEDICINE [place] [facility] [place] [facility] Jun 25, 2022 01:00 PM AMBULATORY - MEDICINE [place] [facility] [place] [facility] Jul 30, 2022 01:30 PM AMBULATORY - PSYCHIATRY [place] [facility] [place] [facility] Aug 07, 2022 02:00 PM [facility] Lab Results: +/- 30 days of the encounter This section includes the Chemistry and Hematology Lab Results on record with OR for the patient. Radiology Reports and Pathology Reports are provided separately, in subsequent sections.Lab Results This section contains the Chemistry/Hematology Results that were resulted 30 days before or 30 daysafter the date of the Encounter. Date/Time Source Result Type Result - Unit Interpretation Reference Range Comment Mar 13, 2022 11:00 [facility] Specimen Type: PLASMA AM [place] [facility] No comment enter ed. Ordering Provid er: MARQUES CHOWDHURY Report Released Date/Time: Feb 16, 2022 04:58 PM Reporting Lab: [facility] [address] [facility] [facility] [address] Performing Lab: [facility] [address] INR 2.5 PROTIME 28.3 H 10.0-13.1 Feb 16, 2022 [facility] ([facility]) Specimen Ty pe: PLASMA 12:59 PM [place] [facility] No comment enter ed. Ordering Provid er: SUDHEER KEENAN Report Released Date/Time: Jan 27, 2022 08:43 AM Reporting Lab: [facility] [place] [facility] [address] [facility] [address] Performing Lab: [facility] [address] [facility] [address] INR 2.3 PROTIME 26.1 H 10.0-13.1 Social History: Smoking Status (Most current) and Tobacco Use (All prior to encounter date) This section includes the most current, and the historical, smoking and tobacco-related health factors from the OR facility where the Encounter took place.Current Smoking Status This section includes the most current smoking, or tobacco-related health factor, from the OR facility where the Encounter took place. Date/Time Current Smoking Status Comment Facility Mar 20, 2021 01:00 PM VA-TOBACCO QUIT 15 YRS OR [facility] [place] [facility] Tobacco Use History This section includes a history of the smoking, or tobacco- related health factors, that were collected on or before the date of the Encounter. The data comes from the OR facility where the Encounter took place. Date/Time Smoking Status/Tobacco Comment Facility Use Mar 20, 2021 01:00 VA-TOBACCO QUIT 15 YRS OR [facility] PM [place] [facility] January 17, 2020 11:33 VA-TOBACCO FORMER USER [facility] AM [place] [facility] January 17, 2020 11:33 VA-TOBACCO QUIT 15 YRS OR [facility] AM [place] [facility] Nov 23, 2018 01:22 VA-TOBACCO FORMER USER [facility] PM [place] [facility] Nov 23, 2018 01:22 VA-TOBACCO QUIT 15 YRS OR [facility] PM [place] [facility] January 18, 2018 12:53 QUIT TOBACCO USE 1-7 VA CNTRL WSTRN PM YEARS AGO PT STATES HE STOPP 4 YR AGO [facility] Dec 09, 2016 01:07 QUIT TOBACCO USE > 7 VA CNTRL WSTRN PM YEARS AGO [facility] Nov 11, 2015 01:13 QUIT TOBACCO USE > 7 VA CNTRL WSTRN PM YEARS AGO [facility] Nov 19, 2004 03:17 HISTORY OF SMOKING VA [facility] W STRN PM quit 30 yrs ago [facility] Aug 10, 2003 01:03 HISTORY OF SMOKING [facility] PM [facility] Apr 12, 2002 02:36 QUIT TOBACCO USE > 7 OR CNTRL WSTRN PM YEARS AGO [facility] Encounter Notes: All associated encounter notes This section contains the clinical notes associated to the Encounter. Date/Time Encounter Note(s) Provider Source Mar 13, 2022 03:24 PHARMACY MEDICATION MGT NOTE: CORWIN MEEKS [facility] PM LOCAL TITLE: PHARMACY ANTICOAGULATION NOTE [facility] STANDARD TITLE: PHARMACY MEDICATION MGT NOTE DATE OF NOTE: MAR 13, 2022@15:24 ENTRY DATE: MAR 13, 2022@15:24:06 AUTHOR: SERA MEEKS EXP COSIGNER: URGENCY: STATUS: COMPLETED PHARMACY ANTICOAGULATION NOTE Has ADDENDA * REFERRED TO CLINIC ON: 06/14/07 PRIMARY CARE PHYSICIAN: Dr. James SHABAZZ INFORMATION: OTHER CONTACT INFORMATION: PATIENT'S PHONE #: [phone] home - can speak w/ Ej perez pt's verbal authorization [phone] [facility] LOCATION: [facility] COUMADIN THERAPY INITIATED ON: 1992 PLANNED DURATION OF THERAPY: lifetime ESTIMATED STOP DATE: n/a INDICATION FOR COUMADIN: St See's valve GOAL INR: 2-3 (goal changed 09/29/13) RELEVANT HISTORY: DRUG INTERACTIONS: citalopram, lansoprazole, APA P, coenzyme Q10 Last CBC: 12/19/21 Last PCP appt: 12/25/21 RECENT DOSING HISTORY (dose in mg): DATE Wed SAT INR 07/23/21 5 7.5 5 5 7.5 5 5 [...] 5 7.5 5 7.5 5 7.5 2.3 03/13/22 7.5 5 7.5 5 7.5 5 7.5 2.5 *spoke with pt* CORRECT DOSE: yes, verified MISSED DOSES: denies BLEEDING: denies NEW EVENTS: denies PROCEDURES: none planned MED CHANGES: denies; continues APAP prn for arth ritis DIET CHANGES: denies; continues to have ~1 salad /week EtOH: ~1-2 beers a day or less - no changes TOBACCO: denies TABLETS: filled x 90 days on 01/05/22 - renewed OTHER: takes dose in AM TABLET STRENGTH: 5mg ASSESSMENT: INR is therapeutic at 2.5 (goal 2-3) PLAN: Informed pt via teleph one of his INR result from today. Instructed pt via telephone to CONTINUE his we ekly warfarin dose of 45mg/week, taking 7.5mg daily except 5mg on Mon/Wed/Fri. Informed pt o f his next PT/INR scheduled on 04/24/22. Return to clinic: Apr 6 weeks; [facility] Time spent with patient: 4 minutes EDUCATION Provided with verbal instructions: Yes Provided with written instructions: No Barriers to learning: No Readiness to learn: Yes Specific dose directions reviewed: Yes Opportunity for questions/discussion: Yes Reports understanding of instructions: Yes Further learning needs: No Provided patient education on the following: Non e INR 2.00-3.00: Therapeutic /yeimy/ Sera Meeks PharmD Clinical Motor And Generator Assembler Signed: 03/13/2022 15:41 04/24/2022 ADDENDUM STATUS: COMPLETED Pt called [facility] to inform that he is unable to kemar e it to the lab today for his INR. Pt will come to the lab on 04/28/22 instead. /yeimy/ Sera Meeks PharmD Clinical Motor And Generator Assembler Signed: 04/24/2022 13:07 Receipt Acknowledged By: * AWAITING SIGNATURE * ZAK BOWER
--- OUTSIDE RECORDS SUMMARY | 2022-11-03 05:40 | XMS_ITS | Encounter Summary ---
:1945 Author Organization [facility] rs Address [address] [place] [address]25 Support Name Relationship Address Phone EJ SCHULTE Unavailable [address] [facility] [place] [address] EJ SCHULTE Unavailable [address] [place] [address] Insurance Providers: All historical and current Section [...] Name to Policy Number Spann WILVER PRESCRIPT [facility] Aug 23, [id number] [phone] POLY NIELSON,J PATIENT ION 2015 7 3 JUSTIN GEHA FEHB PREFERRED MANUEL Aug 23, [id number] [phone] Bertha RICHARDSON PATIENT PROVIDER AL 2012 ALTH 7 136 JUSTIN ORGANIZAT GOV ION (PPO) GEHA FEHB PREFERRED GEHA Aug 23, [id number] [phone] AKUA LIZETT,J PATIENT PROVIDER DAVID 2012 2 7 136 JUSTIN ORGANIZAT CTION ION (PPO) DENT MEDICARE MEDICARE PART Sep 23, PART A [id number] eBrtha FENG PATIENT (WNR) (M) A 2010 2 JUSTIN MEDICARE MEDICARE PART Sep 23, PART B [id number] Bertha FENG PATIENT (WNR) (M) B 2010 2 JUSTIN Selected Encounter This section includes the information on record at [place] for the Encounter. Date/Time Encounter Type Encounter Reason Provider Source Description Apr 28, 2022 HC PRO PHONE TELEPHONE/ANCILLA ICD-10-CM Z51.81 Aj LACKEY 03:55 PM CALL 5-10 MIN RY Encounter for therapeutic drug level monitoring with Provider Comments: Therapeutic Drug Level Monitoring IHE Encounter Template Text not used by VA Assessments - Encounter Diagnoses This section includes the primary and secondary diagnoses documented for the Encounter. Date/Time Primary/Secondary Diagnosis Name Provider Source Diagnosis Apr 28, 2022 PRIMARY Encounter for BUCK LACKEY [place]EL[place] 03:55 PM therapeutic drug CLINIC (631 GE) level monitoring Apr 28, 2022 SECONDARY Presence of other BUCK LACKEY [facility] 03:55 PM heart-valve CLINIC (631GE) replacement Plan of Treatment: Future Appointments (+ 6 months) and Future Tests (+/- 45 days) The Plan of Treatment section includes future care activities for the patient from all [place] treatmentfacilities. This section includes future appointments and future orders which are active, pending orscheduled.Future Appointments This section includes appointments that were scheduled to occur 6 months from the date of the Encounter, up to a maximum of 20 appointments. The data comes from all [place] treatment facilities. Appointment Date/Time Appointment Type Appointment Facili ty Name Apr 30, 2022 01:00 PM AMBULATORY PSYCHIATRY [facility] Jun 25, 2022 08:00 AM AMBULATORY MEDICINE [facility] Jun 25, 2022 01:00 PM [facility] Jul 30, 2022 01:30 PM AMBULATORY PSYCHIATRY [facility] Aug 07, 2022 02:00 PM [facility] MEDICINE [facility] Lab Results: +/- 30 days of the encounter This section includes the Chemistry and Hematology Lab Results on record with [place] for the patient. Radiology Reports and Pathology Reports are provided separately, in subsequent sections.Lab Results This section contains the Chemistry/Hematology Results that were resulted 30 days before or 30 daysafter the date of the Encounter. Date/Time Source Result Type Result - Unit Interpretation Reference Range Comment May 20, 2022 11:10 [facility] PT & INR ([place]) Spec imen Type: PLASMA AM (631GE) No comment enter ed. Ordering Provid er: BUCK LACKEY Report Released Date/Time: May 05, 2022 01:53 PM Reporting Lab: [place] [facility] [place] [facility] [address] [address] Performing Lab: [place] [facility] [place] [facility] [address] [facility] [address] INR 2.7 PROTIME 30.7 H 10.0-13.1 May 05, 2022 [facility] PT & INR ([place]OU[place]) Specimen Ty pe: PLASMA 11:55 AM [place] [facility] No comment enter ed. Ordering Provid er: SERA MEEKS Report Released Date/Time: May 05, 2022 11:54 AM Reporting Lab: [place] [facility] [place] [facility] [address] [facility] [address] Performing Lab: [place] [facility] [place] [facility] [address] [facility] [address] INR 3.0 PROTIME 33.6 H 10.0-13.1 Apr 28, 2022 [facility] PT & INR ([place]OU[place]ADIN) Specimen Ty pe: PLASMA 01:14 PM [facility] No comment enter ed. Ordering Provid er: SERA MEEKS Report Released Date/Time: Mar 13, 2022 03:43 PM Reporting Lab: [place] [facility] [place] [facility] [address] [facility] [address] Performing Lab: [place] [facility] [place] [facility] [address] [facility] [address] INR 4.3 PROTIME 47.6 H 10.0-13.1 Encounter Notes: All associated encounter notes This section contains the clinical notes associated to the Encounter. Date/Time Encounter Note(s) Provider Source Apr 28, 2022 03:55 PM PHARMACY MEDICATION MGT NOTE: BUCK LACKEY [facility] LOCAL TITLE: PHARMACY ANTICOAGULATION NOTE (631GE) STANDARD TITLE: PHARMACY MEDICATION MGT NOTE DATE OF NOTE: APR 28, 2022@15:55 ENTRY DATE: APR 28, 2022@15:56 AUTHOR: BUCK LACKEY COSIGNER: URGENCY: STATUS: COMPLETED REFERRED TO CLINIC ON: 06/14/07 PRIMARY CARE PHYSICIAN: Dr. James SHABAZZ INFORMATION: OTHER CONTACT INFORMATION: PATIENT'S PHONE #: [phone] home - can speak w/ Ej perez pt's verbal authorization [phone] [facility] LOCATION: [facility] COUMADIN THERAPY INITIATED ON: 1992 PLANNED DURATION OF THERAPY: lifetime ESTIMATED STOP DATE: n/a INDICATION FOR COUMADIN: St See's valve GOAL INR: 2-3 (goal changed 09/29/13) RELEVANT HISTORY: DRUG INTERACTIONS: citalopram, lansoprazole, APA P, coenzyme Q10 Last CBC: 12/19/21 Last PCP appt: 12/25/21 RECENT DOSING HISTORY (dose in mg): DATE Wed SAT INR 10/20/21 5 7.5 5 5 7.5 5 [...] 5 7.5 5 7.5 5 7.5 2.5 04/28/22 7.5 5 7.5 5 7.5 5 7.5 4.3 *Hold 1 dose, then c/w 45mg/week: *spoke with pt* CORRECT DOSE: yes, verified - has pillbox, pt ? if he had accidentally put more warfarin than he should into one of the da ys MISSED DOSES: denies BLEEDING: denies NEW EVENTS: denies PROCEDURES: none planned MED CHANGES: has been taking more Tylenol Sinus in the past 2 weeks for both allergy and arthritis, also took 2 doses of Mot rin in the past 2 weeks DIET CHANGES: denies; continues to have ~1 salad /week EtOH: ~1-2 beers a day or less - no changes TOBACCO: denies TABLETS: filled x 90 days on 03/13/22 OTHER: takes dose in AM TABLET STRENGTH: 5mg ASSESSMENT: INR is supratherapeutic at 4.3 (goal 2-3) prob due to taking more Tylenol in addition to 2 doses of Motrin in the past 2 weeks and ? higher warfarin dose was loaded int o pillbox by accident. Will have pt hold today dose, and c/w 45mg/week as he's be en stable at this dose. He does not think he'd need to take as much Tylenol. PLAN: Informed pt via teleph one of his INR result from today. Instructed pt via telephone to HOLD today warf elvi dose, then c/w the same weekly warfarin dose of 45mg/week, taking 7.5mg leslie y x 4 days except 5mg on Mon/Wed/Wed. Informed pt of his next PT/INR scheduled on Wed05/05/22 for close monitoring. May adjust TWD if needed after next INR. -- Counseled pt re: use of Motrin while taking warfarin will increase bleeding risk. Advised pt to stop taking Motrin. Return to clinic: Apr Time spent with patient: 5 minutes EDUCATION Provided with verbal instructions: Yes Provided with written instructions: No Barriers to learning: No Readiness to learn: Yes Specific dose directions reviewed: Yes Opportunity for questions/discussion: Yes Reports understanding of instructions: Yes Further learning needs: No Provided patient education on the following: None INR 3.70-4.99: Not Therapeutic Supratherapeutic. Patient was counseled on the signs and symptoms of bleeding and was instructed to present to the E mergency Department should a fall occur and the patient hit his/her head. /yeimy/ BUCK LACKEY, YASEMIND CLINICAL ENGINEERING SPECIALIST TECHNICIAN Signed: 04/28/2022 16:08 Receipt Acknowledged By: * AWAITING SIGNATURE * ZAK BOWER
--- OUTSIDE RECORDS SUMMARY | 2022-11-03 05:40 | XMS_ITS | Encounter Summary ---
:1945 Author Organization Department [facility] rs Address [address] [place] [id number] Support Name Relationship Address Phone EJ SCHULTE Unavailable [address] [place] [address] EJ SCHULTE Unavailable [address] [place] [address] Insurance Providers: All historical and current Section [...] Name to Policy Number Spann [facility] Aug 23, [id number] [phone] POLY ON,J PATIENT ION 2015 7 3 JUSTIN GEHA FEHB PREFERRED MANUEL Aug 23, [id number] [phone] AKUA PHOENIXJ PATIENT PROVIDER MICHELA 2012 ALTH 7 136 JUSTIN ORGANIZAT GOV ION (PPO) GEHA FEHB PREFERRED GEHA Aug 23, [id number] [phone] AKUA RDON,J PATIENT PROVIDER DAVID 2012 2 7 136 JUSTIN ORGANIZAT CTION ION (PPO) DENT MEDICARE MEDICARE PART Sep 23, PART A [id number] Bertha FENG PATIENT (WNR) (M) A [id number] 2 JUSTIN MEDICARE MEDICARE PART Sep 23, PART B [id number] Bertha FENG PATIENT (WNR) (M) B 2010 MJ 2 JUSTIN Selected Encounter This section includes the information on record at [place] for the Encounter. Date/Time Encounter Type Encounter Reason Provider Source Description Apr 07, 2022 EYE EXAM WITH OPTOMETRY ICD-10-CM H40.1234 TREVON BOWENS 01:30 PM PHOTOS Low-tension LE glaucoma, bilateral, indeterminate stage with Provider Comments: Low-Tension Glaucoma, Bilateral, Indeterminate Stage IHE Encounter Template Text not used by [facility] Assessments - Encounter Diagnoses This section includes the primary and secondary diagnoses documented for the Encounter. Date/Time Primary/Secondary Diagnosis Name Provider Source Diagnosis Apr 08, 2022 PRIMARY Low-tension CHARLIE BOWENS [facility]10 AM glaucoma, [facility] bilateral, indeterminate stage Plan of Treatment: Future Appointments (+ 6 months) and Future Tests (+/- 45 days) The Plan of Treatment section includes future care activities for the patient from all [place] treatmentfacilities. This section includes future appointments and future orders which are active, pending orscheduled.Future Appointments This section includes appointments that were scheduled to occur 6 months from the date of the Encounter, up to a maximum of 20 appointments. The data comes from all [place] treatment facilities. Appointment Date/Time Appointment Type Appointment Facili ty Name Apr 15, 2022 02:30 PM [facility] [place] [facility] Apr 30, 2022 01:00 PM AMBULAT[facility] - [facility] [place] [facility] Jun 25, 2022 08:00 AM AM[facility]UL[facility] [place] [facility] Jun 25, 2022 01:00 PM AM[facility]UL[facility] [place] [facility] Jul 30, 2022 01:30 PM AMBULATORY [facility] [place] [facility] Aug 07, 2022 02:00 PM [facility] [place] [facility] Lab Results: +/- 30 days of the encounter This section includes the Chemistry and Hematology Lab Results on record with [place] for the patient. Radiology Reports and Pathology Reports are provided separately, in subsequent sections.Lab Results This section contains the Chemistry/Hematology Results that were resulted 30 days before or 30 daysafter the date of the Encounter. Date/Time Source Result Type Result - Unit Interpretation Reference Range Comment May 05, 2022 [facility] & [facility] ([facility]) Specimen Ty pe: PLASMA 11:55 AM [facility] No comment enter ed. Ordering Provid er: SERA MEEKS Report Released Date/Time: May 05, 2022 11:54 AM Reporting Lab: [facility] [place] [address] [facility] [address] Performing Lab: [facility] [address] [facility] [address] INR 3.0 PROTIME 33.6 H 10.0-13.1 Apr 28, 2022 [facility] PT & INR ([place]) Specimen Ty pe: PLASMA 01:14 PM [facility] No comment enter ed. Ordering Provid er: SERA MEEKS Report Released Date/Time: Mar 13, 2022 03:43 PM Reporting Lab: [facility] [address] [facility] [address] Performing Lab: [facility] [address] [facility] [address] INR 4.3 PROTIME 47.6 H 10.0-13.1 Mar 13, 2022 11:00 [facility] PT & INR ([place]) Specimen Type: PLASMA [facility] No comment enter ed. Ordering Provid er: MARQUES CHOWDHURY Report Released Date/Time: Feb 16, 2022 04:58 PM Reporting Lab: [facility] [address] [facility] [address] Performing Lab: [facility] [address] [facility] [address] INR 2.5 PROTIME 28.3 H 10.0-13.1 Social History: Smoking Status (Most current) and Tobacco Use (All prior to encounter date) This section includes the most current, and the historical, smoking and tobacco-related health factors from the [place] facility where the Encounter took place.Current Smoking Status This section includes the most current smoking, or tobacco-related health factor, from the [place] facility where the Encounter took place. Date/Time Current Smoking Status Comment Facility Mar 20, 2021 01:00 PM VA-TOBACCO FORMER USER [facility] Tobacco Use History This section includes a history of the smoking, or tobacco- related health factors, that were collected on or before the date of the Encounter. The data comes from the [place] facility where the Encounter took place. Date/Time Smoking Status/Tobacco Comment Facility Use Mar 20, 2021 01:00 VA-TOBACCO QUIT 15 YRS OR [facility] [place] [facility] January 17, 2020 11:33 VA-TOBACCO FORMER USER [facility] [place] [facility] January 17, 2020 11:33 VA-TOBACCO QUIT 15 YRS OR [facility] [place] [facility] Nov 23, 2018 01:22 VA-TOBACCO FORMER USER [facility] [place] [facility] Nov 23, 2018 01:22 VA-TOBACCO QUIT 15 YRS OR [facility] [place] [facility] January 18, 2018 12:53 QUIT TOBACCO USE 1-7 [facility] PM YEARS AGO PT STATES [facility] Dec 09, 2016 01:07 QUIT TOBACCO USE > 7 [facility] Nov 11, 2015 01:13 QUIT TOBACCO USE > 7 [facility] Nov 19, 2004 03:17 HISTORY OF SMOKING [facility] quit 30 yrs [facility] Aug 10, 2003 01:03 HISTORY OF SMOKING [facility] Apr 12, 2002 02:36 QUIT TOBACCO USE > 7 [facility] PM YEARS AGO [facility] Encounter Notes: All associated encounter notes This section contains the clinical notes associated to the Encounter. Date/Time Encounter Note(s) Provider Source Apr 07, 2022 01:42 OPTOMETRY CONSULT: IMA UNGER [facility] LOCAL TITLE: CONSULT REPORT/OPTOMETRY FUNDUS PH JOANNA LIZARRAGA A [facility] STANDARD TITLE: OPTOMETRY CONSULT DATE OF NOTE: APR 07, 2022@13:42 ENTRY DATE: APR 07, 2022@13:42:28 AUTHOR: MIA UNGER EXP COSIGNER: SIM TAYLOR URGENCY: STATUS: COMPLETED CONSULT REPORT/OPTOMETRY FUNDUS PHOTO Has A DDENDA Fundus photo report: Fundus photos reviewed for patient with Low-tens ion glaucoma, indeterminate stage secondary to previous unreliable visual fi eld testing, but previously noted to be mild stage each eye OD: Image quality limited by central PSC. optic disc shows large cupping with distinct margins and RNFL th inning with superior notching. The vasculature is of normal caliber. Macula is clear. OS: optic disc shows large c upping with distinct margins and Rim tissue thinning with Superior and Inferior notching. The vascula ture is of normal caliber. Macula is clear. A/P: Low-tension glaucoma, indeterminate stage second parminder to unreliable visual field testing but pre viously noted to be mild stage each eye with stable intraocular pressure with more than 15% reductio n in IOP compared to pretreatment level. Fundus photos taken today re main stable compared to previous imaging.Pt educated and understands. [place] [facility] [place] and RNFL OCT. Pt advised to continue latanop reji qhs OU. /yeimy/ ARACELY UNGER OPTOMETRY STUDENT Signed: 04/07/2022 16:45 /yeimy/ Sim Bowens OD CHIEF OF OPTOMETRY Cosigned: 04/08/2022 06:40 04/08/2022 ADDENDUM STATUS: COMPLETED review fundus photos of paient with indeterminat e stage low tension glaucoma. Photo quality right eye limited by psc cataract but with likley inferior> superior notching but no splinter heme. Remainde r of posterior pole is unremarkable. photo left eye shows inferio r.superior notching without splinter heme. Remiander of posterior pole is unremarkable. bilateral indeterminate low ension glaucoma, continue ltanoprost at bedtime each eye and keep scheduled follow up. /yeimy/ Sim Bowens OD CHIEF OF OPTOMETRY Signed: 04/08/2022 07:09
--- OUTSIDE RECORDS SUMMARY | 2022-11-03 05:41 | XMS_ITS ---
:1945 Author Organization [facility] rs Address [address] [place] [id number] Support Name Relationship Address Phone EJ SCHULTE Unavailable [address] [place] [address] EJ SCHULTE Unavailable [address] [place] [address] Insurance Providers: All historical and current Section [...] Name to Policy Number Spann [facility] Aug 23, [id number] [phone] POLY ON,J PATIENT ION 2015 7 3 JUSTIN GEHA FEHB PREFERRED [facility] [place] Aug 23, [id number] [phone] Bertha RICHARDSON PATIENT PROVIDER MICHELA 2012 ALTH 7 136 JUSTIN ORGANIZAT GOV ION (PPO) GEHA FEHB PREFERRED GEHA Aug 23, [id number] [phone] AKUA LIZETT,J PATIENT PROVIDER DAVID 2012 2 7 136 JUSTIN ORGANIZAT CTION ION (PPO) DENT MEDICARE MEDICARE PART Sep 23, PART A [id number] Bertha FENG PATIENT (WNR) (M) A 2010 [id number] 2 JUSTIN MEDICARE MEDICARE PART Sep 23, PART B [id number] Bertha FENG PATIENT (WNR) (M) B 2010 [id number] 2 JUSTIN Selected Encounter This section includes the information on record at [place] for the Encounter. Date/Time Encounter Type Encounter Reason Provider Source Description Apr 30, 2022 OFFICE O/P EST MENTAL HEALTH ICD-10-CM SHAWN SILVER 01:00 PM SF 10-19 MIN CLINIC - IND F43.12 VERONIQUE Post-traumatic stress disorder, chronic with Provider Comments: Chronic post-traumatic stress disorder following combat (RUST [id number]) IHE Encounter Template Text not used by VA Assessments - Encounter Diagnoses This section includes the primary and secondary diagnoses documented for the Encounter. Date/Time Primary/Secondary Diagnosis Name Provider Source Diagnosis Apr 30, 2022 PRIMARY Post-traumatic SHAWN SILVER [employer] [facility] [employer] [facility] TRN 08:23 PM stress [facility]IQUE [place] [facility] disorder, chronic Plan of Treatment: Future Appointments (+ 6 [...] Date/Time Appointment Type Appointment Facili ty Name Jun 25, 2022 08:00 AM AMBULATORY - [facility] Jun 25, 2022 01:00 PM [facility]ORY [facility] Jul 30, 2022 01:30 PM AMBULATORY - PSYCHIATRY [facility] Aug 07, 2022 02:00 PM [facility]ATORY [facility] Lab Results: +/- 30 days of [...] Reference Range Comment May 20, 2022 11:10 [facility] PT & INR (COU[facility]ADIN) Spec imen Type: PLASMA AM (631GE) No comment enter ed. Ordering Provid er: BUCK LACKEY Report Released Date/Time: May 05, 2022 01:53 PM Reporting Lab: [facility] [place] [facility] [address] [address] Performing Lab: [facility] [place] [facility] [address] [address] INR 2.7 PROTIME 30.7 H 10.0-13.1 May 05, 2022 [facility] PT & INR ([place]) Specimen Ty pe: PLASMA 11:55 AM [place] [facility] No comment enter ed. Ordering Provid er: SERA MEEKS Report Released Date/Time: May 05, 2022 11:54 AM Reporting Lab: [facility] [place] [facility] [address] [address] Performing Lab: [facility] [place] [facility] [address] [address] INR 3.0 PROTIME 33.6 H 10.0-13.1 Apr 28, 2022 [facility] PT & INR ([place]) Specimen Ty pe: PLASMA 01:14 PM [place] [facility] No comment enter ed. Ordering Provid er: SERA MEEKS Report Released Date/Time: Mar 13, 2022 03:43 PM Reporting Lab: [facility] [place] [facility] [address] [address] Performing Lab: [facility] [place] [facility] [address] [address] INR 4.3 PROTIME 47.6 H 10.0-13.1 Social History: Smoking Status (Most [...] place. Date/Time Current Smoking Status Comment Facility Apr 30, 2022 01:00 PM [facility] [place] [facility] Tobacco Use History This section includes a history of the smoking, or tobacco- related health factors, that were collected on or before the date of the Encounter. The data comes from the [place] facility where the Encounter took place. Date/Time Smoking Status/Tobacco Comment Facility Use Apr 30, 2022 01:00 VA-TOBACCO QUIT 15 YRS OR [facility] PM MORE [place] [facility] Mar 20, 2021 01:00 VA-TOBACCO FORMER USER [facility] [place] [facility] Mar 20, 2021 01:00 VA-TOBACCO QUIT 15 YRS OR [facility] PM MORE [place] [facility] January 17, 2020 11:33 VA-TOBACCO FORMER USER [facility] AM [place] [facility] January 17, 2020 11:33 VA-TOBACCO QUIT 15 YRS OR [facility] AM MORE [place] [facility] Nov 23, 2018 01:22 VA-TOBACCO FORMER USER [facility] PM [place] [facility] Nov 23, 2018 01:22 VA-TOBACCO QUIT 15 YRS OR [facility] PM MORE [place] [facility] January 18, 2018 12:53 QUIT TOBACCO USE 1-7 [facility] PM YEARS AGO PT STATES HE STOPP 4 YR AGO [place] [facility] Dec 09, 2016 01:07 QUIT TOBACCO USE > 7 [facility] Nov 11, 2015 01:13 QUIT TOBACCO USE > 7 [facility] PM YEARS AGO [place] [facility] Nov 19, 2004 03:17 HISTORY OF SMOKING [facility] Aug 10, 2003 01:03 HISTORY OF SMOKING [facility] [place] [facility] Apr 12, 2002 02:36 QUIT TOBACCO USE > 7 [facility] PM YEARS AGO [facility] Encounter Notes: All associated encounter notes This section contains the clinical notes associated to the Encounter. Date/Time Encounter Note(s) Provider Source Apr 30, 2022 08:20 MENTAL HEALTH TREATMENT PLAN NOTE: RAHEEM SILVER [facility] PM LOCAL TITLE: MH TREATMENT PLAN [facility] STANDARD TITLE: MENTAL HEALTH TREATMENT PLAN NOT E DATE OF NOTE: APR 30, 2022@20:20 ENTRY DATE: APR 30, 2022@20:20:49 AUTHOR: KYLE SILVER EXP COSIGNER: URGENCY: STATUS: COMPLETED MH TREATMENT PLAN - Apr, @ 08:20PM Visit Date: Apr, @ 13:00 - CWM/NO/TH/VVC/ MHC/NADEEM TC not assigned TEAM MEMBERS: KYLE SILVER: PSYCHIATRIST [employer]CIPLIN[employer] INTEGRATED SUMMARY: Psychiatric History including previous medicatio n trials: 73 y/o male currently stable. a. continue current meds. b. keep regularly scheduled medication managemen t appts. c. maintain good cardiovascular maintenance so a s to not add to mood issues. MENTAL HEALTH DIAGNOSES AND RELEVANT MEDICAL CON DITIONS: Chronic post-traumatic stress disorder following combat (RUST [id number]) TREATMENT PLAN: Problem: PTSD Goal: I would like my PTSD symptoms to remain to be managable. Objective: I plan to continue taking medicatio n for PTSD. Projected Target Date: 04/30/2023 Intervention: Medication Management. Providers: KYLE SILVER Time Frame: Three times per year for 1 year Treating Specialty: Mental Health Clinic Renewal Date: 04/30/2023 Entered Treatment: 04/30/2022 @ 08:20PM Anticipated Discharge: None Actual Discharge: None /yeimy/ KYLE SILVER MD PSYCHIATRIST Signed: 04/30/2022 20:20 Apr 30, 2022 01:22 ACCOUNTING OF DISCLOSURES NOTE: RUFUS SILVER [facility] PM LOCAL TITLE: STATE PRESCRIPTION DRUG MONITORING PROGRAM [facility] STANDARD TITLE: ACCOUNTING OF DISCLOSURES NOTE DATE OF NOTE: APR 30, 2022@13:22:54 ENTRY DATE: APR 30, 2022@13:22:54 AUTHOR: KYLE SILVER EXP COSIGNER: URGENCY: STATUS: COMPLETED This PDMP query was submitted by Sabino Silver. The clinical justification for this PDMP query i s to review controlled substances prescribed outside of the VA, and any additional information that may become available, as an important compo nent of standard clinical care, and in accordance with [facility] policy. Patient information was shared with the PDMP Renetta BleepBleepss Vina. No prescription(s) for controlled substances out side the VA were found in the last 90 days. /yeimy/ KYLE SILVER MD PSYCHIATRIST Signed: 04/30/2022 20:40 Apr 30, 2022 01:08 TELEHEALTH NOTE: KYLE SILVER [facility] PM LOCAL TITLE: [place] VIDEO CONNECT PSYCHIATRIST NOTE [facility] STANDARD TITLE: TELEHEALTH NOTE DATE OF NOTE: APR 30, 2022@13:08 ENTRY DATE: APR 30, 2022@13:08:17 AUTHOR: KYLE SILVER EXP COSIGNER: URGENCY: STATUS: COMPLETED [place] Video Connect (VVC) Standard Documentation [facility] Clinician Resources Only: E911 (Emergency Call Relay Center): [phone] [employer] Crisis Line - 988 then press # 1. [facility] Suicide Coordinator [phone], Ext. [phone]; Back-up Ext. [phone] [place] Police, Artur KONG [phone] Introduction: Visit is being conducted by [place] [employer] [facility]. Glen Jean identified with 2 identifiers: [X] Full Name [X] Date of [ ] [place] ID Card Emergency Plan: confirmed and/or pro vided the following information in case of emergency or technology failure. PATIENT PHONE - PHONE NUMBER [CELLULAR] - Is patient phone number correct, if not, enter b elow: Glen Jean's phone number: KAMLA SCHULTE [address], [place], [address] Glen Jean's present location and address for appoi ntment: home 's emergency contact name and phone numbe r: none given reported that location is private and sa fe: Yes Informed Consent: informed of the risks and benefits of Te health video care. has the right to refuse video services. If refuses video visit, a covt-eh-naaz visit will be scheduled. Glen Jean verbalized consent for this video visit: Yes Glen Jean provided consent for any other persons p resent for visit: N/A If yes, who and relationship to patient: Secure visit: Visit was locked for security and privacy:Yes KAMLA SCHULTE, a 76 year old WHITE MALE was se en by [facility] today for scheduled mental health follow-up. MENTAL HEALTH NOTE: Glen Jean was seen by [facility] for 10 min remotely for routine follow up. Two forms of identification was used. DIAGNOSES AND PROBLEMS TREATED THIS VISIT: Chronic PTSD SUBJECTIVE: Kamla says he is doing alright. He s ays he has had a lot of changes in his life due to the pandemic. His wif lala broke her hip and is still limited in what she can do. Kamla is doing most of the cooking and cleaning around the house. He is happy to help, emerson sylwia says it does weigh on him at times. He and his have lost many relatives to in the last couple of years. This takes a toll on him as well. He says he continues on the celexa and ambien and that both are helpful to him. He denies any side effects from either. He denies any issues with alcohol. SUBSTANCE ABUSE: Caffeine: 2 cups of coffee a day. Tobacco: none in 40 years. Cocaine: denies Opioid: denies Alcohol: denies any alcohol use now. He denies a ny issues with alcohol in the past. Cannabis: denies SUICIDE RISK SCREEN 1. Are you having thoughts today about killing y ourself? No 2. Do you have a plan to kill yourself? No Describe plan: 3. Do you have the means to carry out the plan? No 4. Risk level: Low (no suicide specific actions are needed) Previous medication trials: Celexa, Ambien, Zolo ft, Effexor, Abilify, Wellbutrin, Ativan Current meds: Active and Recently Outpatient Medicatio ns (excluding Supplies): Active Outpatient Medications Status 1) ASPIRIN 81MG EC TAB TAKE ONE TABLET BY MOUTH ONCE ACTIVE DAILY TO PREVENT STROKE/HEART ATTACK 2) BISOPROLOL FUMARATE 5MG TAB TAKE ONE TABLET B Y MOUTH ACTIVE TWICE DAILY 3) DIGOXIN 0.125MG TAB TAKE ONE TABLET BY MOUTH ONCE ACTIVE DAILY 4) FERROUS GLUCONATE 324MG TAB TAKE ONE TABLET B Y MOUTH ACTIVE ONCE DAILY TO SUPPLEMENT IRON 5) LANSOPRAZOLE (PREVACID) 30MG CAP *BRAND* TAKE ONE ACTIVE CAPSULE BY MOUTH DAILY 6) LATANOPROST 0.005% OPH SOLN INSTILL 1 DROP IN TO EACH ACTIVE EYE AT BEDTIME TO REDUCE PRESSURE IN THE EYE 7) LORATADINE 10MG TAB TAKE ONE TABLET BY MOUTH ONCE ACTIVE DAILY FOR ALLERGY 8) LORAZEPAM 0.5MG TAB TAKE ONE TABLET BY MOUTH TWICE ACTIVE DAILY NEEDED FOR ANXIETY/NERVES 9) TAMSULOSIN HCL 0.4MG CAP TAKE ONE CAPSULE BY MOUTH ACTIVE DAILY 10) VALSARTAN 40MG TAB TAKE ONE TABLET BY MOUTH ONCE ACTIVE DAILY 11) WARFARIN NA ([place]) 5MG TAB TAKE D IRECTED ACTIVE BY MOUTH WITH DIRECTIONS PROVIDED FROM YOUR VA PROVIDER (ANTICOAGULATION CLINIC extension [id number]) FOR THE PREVENTION OF BLOOD MARIA TERESA TS Pending Outpatient Medications Status 1) CITALOPRAM HYDROBROMIDE 20MG TAB TAKE ONE TAB LET BY PENDING MOUTH AT BEDTIME FOR DEPRESSION AND ANXIETY 2) ZOLPIDEM TARTRATE 10MG TAB TAKE ONE TABLET BY MOUTH PENDING AT BEDTIME NEEDED SLEEP Active Non-VA Medications Status 1) Non-VA COENZYME Q10 CAP/TAB ONE TABLET BY TORY ONCE ACTIVE DAILY NEEDED 14 Total Medications MEDICATION ADHERENCE: takes medications most day s MEDICATION SIDE EFFECTS: none OBJECTIVE:recent labs:INR (ACL): 4.3 PT (): 47.6 H INR (ACL): 2.5 PT (): 28.3 H Weight: 217 lb [98.43 kg] (12/25/2021 14:51) BMI : 29.5 MENTAL STATUS EXAM: Orientation and Consciousness: Alert and fully o riented. Appearance and Behavior: Older white male dresse d casually at home. Eye Contact: Good. Speech: Normal rate and volume. Mood/Affect: ok. Affect: euthymic. Thought Production/Content: Logical, sequential & relevant to discussion. Perceptual Disturbances: None. Attention, concentration and memory based on answers to session questions: Good. Insight/Judgment: Both good. SI/HI: Neither elicited. Ability to Provide informed consent: Yes. ASSESSMENT:76 year old WHITE MALE, troy bhatt today for mental health follow up. TREATMENT PLAN/ DISCUSSION/ RATIONALE: 1.::: Medication management: Reviewed medication s today with Kamla. He continues on both celexa and ambien. He denies a ny side effects from either. No change to either today. Will have him come for in person visit for his next appt. since we have not seen eachother face to f lucie in some time. Next Visit: in 3 months. Patient is aware of how to access [facility] clinic in [facility] during weekdays for immediate mental health n eeds if I am not available. Patient has capacity to make his own medication decisions at present time. I asked the patient to come for sooner appointment if the patient does not like the effect of psychiatric medication or if has s yang effects with psychiatric medication. The patient's primary care physician follows blo od pressure, weights, lipids, glucose The pt understands not to combine psychiatric me ds with alcohol or street drugs. Because the pt reports significan t benefit from psychiatric medication, it is reasonable to continue to prescribe the ps ychiatric medication, even if there is risk of relapse to substance abuse -- t he benefits of psychiatric medications outweigh the risks, even in the setting of substance abuse (and by helping to calm psychiatric symptoms, the medica tions may help decrease the risk/severity of substance abuse relapses) ::: MASS PAT was checked -- and there were no du plications, nor evidence of external acquisition of narcotics n or any contraindications with ongoing prescription of narcotics through this VA facility. ::: Psychotropic meds were reconciled; and no di screpancies were noted. Discussed R/B/SE/A and necessity for lab monito ring; as well as off-label use, drug-drug interactions, potential for suic idal thinking with some psychotropics. Patient provided with updated me dication list and reminded of importance of ensuring that changes includin g OTCs/herbals get added. Patient voiced understanding and agreement with current treatment plan. ::: Reviewed most recent labs, No studies ordere d at this visit. ::: Had a supportive discussion with pt and cont to provide psychoeducation and brief supportive therapy including again pr oviding psychoeducation on sleep hygiene, diet, exercise and med complianc e. Pt agrees to present to ER or call 911 for psychiatric emergencies, inc luding SI/HI. ::: SAFETY PLAN: Pt was educated about emergency services available at this facility e.g., ER) and in the community (i ncluding Crisis Line, 911, [place] National Suicide Prevention Lifeline: 0-775- 850-TALK). Patient is instructed to contact me should symptoms worsen or side effects develop. Pt agreed to use these resources if warranted. ::: Pt was educated about risks of interactions between drugs/alcohol and psychotropic medications and voiced [place]. Pt was also warned not to drive or operate heavy machinery until the e ffects of psychotropic medications is known. CRISIS PLAN: The patient denied suicidal and violent ideation, but the [facility] Crisis Line information and number were given to patient. Th e patient also understands to call 911 or to go to ER in the event of an emerg ency. Medication Reconciliation: Outpatient: Has the patient been taking medications as docu mented in the EMLR? YES: The patient has been taking medications as documented in the EMLR. Essential Medication List for Review used to co mplete this medication reconciliation. INCLUDED IN THIS LIST: Alphabetical list of act [place] outpatient prescriptions dispensed from this VA (local) an d dispensed from another VA or [facility] facility (remote) as well as [...] whether with a VA or non-VA provider. Alcohol Use Screen (AUDIT-C): Alcohol Screen: SCREEN FOR ALCOHOL (AUDIT-C) An alcohol screening test (AUDIT-C) was negativ e (score=0). 1. How often did you have a drink containing al cohol in the past year? Never 2. How many drinks containing alcohol did you h ave on a typical day when you were drinking in the past year? Response not required due to responses to other questions. 3. How often did you have six or more drinks on one occasion in the past year? Response not required due to responses to other questions. Relationship Health & Safety Screen: Environment is safe to proceed INFORMED CONSENT TO SCREEN & DOCUMENT: Individual consents to documentation? Yes Individual consents to proceed with screening? Yes PRIMARY SCREEN: In the past 12 months, how often did a current or former intimate partner (e.g., boyfriend, girlfriend, , , se xual partner): Scream or curse at you: Never Insult or talk down to you: Never Threaten you with harm: Never Physically hurt you: Never In the past 12 months, how often did a current or former intimate partner force or pressure you to have sexual co ntact against your will, or when you were unable to say no? Never PRIMARY SCREEN RESULTS: The individual denied all forms of IPV above (i .e., answered never to all 5 items above). ??The HITS tool is US copyright protected by Ted Howard MD, and the user has full rights to use it throughout the [employer] system. DISPOSITION: Provided general IPV education. Tobacco Use Screening: The patient is a former tobacco user. The patient quit fifteen or more years ago. Medication Reconciliation: Outpatient: Has the patient been taking medications as docu mented in the EMLR? YES: The patient has been taking medications as documented in the EMLR. Essential Medication List for Review used to co mplete this medication reconciliation. INCLUDED IN THIS LIST: Alphabetical list of [place] outpatient prescriptions dispensed from this VA (local) an d dispensed from another VA or [facility] facility (remote) as well as inpatien t [...] with a VA or non-VA provider. /yeimy/ KYLE SILVER MD PSYCHIATRIST Signed: 04/30/2022 20:24
--- OUTSIDE RECORDS SUMMARY | 2022-11-03 05:42 | XMS_ITS | Encounter Summary ---
:1945 Author Organization [facility] rs Address [address] [place] [address] Support Name Relationship Address Phone EJ SCHULTE Unavailable [address] [place] [address] EJ SCHULTE Unavailable [address] [facility] [place] [address] Insurance Providers: All historical and current Section Date Range: From patient's date of to the date document was created.This section includes the names of all active insurance providers for the patient. Insurance Type of Plan Start of End of Group Member Insurance Policy P atient's Provider Coverage Name Policy Policy Number ID Provider's Spann's Relationship Coverage Coverage Telephone Name to Policy Number Spann [facility] GE Aug 23, [id number] [phone] POLY ON,J PATIENT ION 2015 7 3 JUSTIN GEHA FEHB PREFERRED MANUEL Aug 23, [id number] [phone] AKUALisa [place],J PATIENT PROVIDER AL 2012 ALTH 7 136 JUSTIN ORGANIZAT GOV ION (PPO) GEHA FEHB PREFERRED GEHA Aug 23, [id number] [phone] AKUA RDON,J PATIENT PROVIDER DAVID 2012 2 7 136 JUSTIN ORGANIZAT CTION ION (PPO) DENT MEDICARE MEDICARE PART Sep 23, PART A [id number] Bertha FENG PATIENT (WNR) (M) A [id number] 2 JUSTIN MEDICARE MEDICARE PART Sep 23, PART B [id number] SIMBA NBertha PATIENT (WNR) (M) B 2010 2 JUSTIN Selected Encounter This section includes the information on record at [place] for the Encounter. Date/Time Encounter Type Encounter Reason Provider Source Description May 20, 2022 HC PRO PHONE TELEPHONE/ANCILLA ICD-10-CM Z51.81 ALYSON HUNTER 12:31 PM CALL 5-10 MIN RY Encounter for therapeutic drug level monitoring with Provider Comments: Therapeutic Drug Level Monitoring IHE Encounter Template Text not used by [place] Assessments - Encounter Diagnoses This section includes the primary and secondary diagnoses documented for the Encounter. Date/Time Primary/Secondary Diagnosis Name Provider Source Diagnosis May 20, 2022 PRIMARY Encounter for SHRUTHI HUNTER 12:31 PM therapeutic drug level monitoring May 20, 2022 SECONDARY alf (current) SHRUTHI HUNTER [place] 12:31 PM use of anticoagulants May 20, 2022 SECONDARY Presence of other SHRUTHI HUNTER LD 12:31 PM heart-valve replacement Plan of Treatment: Future Appointments (+ 6 months) and Future Tests (+/- 45 days) The Plan of Treatment section includes future care activities for the patient [facility] [place] [facility] This section includes future appointments and future orders which are active, pending orscheduled.Future Appointments This section includes appointments that were scheduled to occur 6 months from the date of the Encounter, up to a maximum of 20 appointments. The data comes from all [place] treatment facilities. Appointment Date/Time Appointment Type Appointment Facili ty Name Jun 25, 2022 08:00 AM [facility] Jun 25, 2022 01:00 PM [facility] Jul 30, 2022 01:30 PM [facility] Aug 07, 2022 02:00 PM [facility] Nov 02, 2022 12:10 PM [facility] Nov 12, 2022 12:45 PM [facility] Active, Pending, and Scheduled Orders This section includes a listing of several types of active, pending, and scheduled orders, including clinic medications orders, diagnostic test orders, procedure orders and consult orders; where the start date of the order is 45 days before the date of the Encounter or 45 days after the date of the Encounter. The data comes from all [place] treatment facilities. Test Date/Time Test Type Test Details Facility Name Jun 24, 2022 08:49 AM Consult Order [facility] N[facility] SPECIALTY Cons [place] [facility] Telecommunications Support's Choice Lab Results: +/- 30 days of the [...] Result - Unit Interpretation Reference Range Comment Jun 11, 2022 [facility] LIPID PANEL FASTING Specimen Ty pe: SERUM 10:02 AM [place] [facility] No comment enter ed. Ordering Provid er: BOYD GROSS Report Released Date/Time: Jun 04, 2022 02:50 PM Reporting Lab: [facility] [place] [facility] [address] [facility] [address] Performing Lab: [facility] [place] [facility] [address] [facility] [address] CHOLESTEROL 113 <7-199 TRIGLYCERIDE 150 0-150 LDL calculated 37 0-129 CHOL/HDL 2.5 HDL CHOLESTEROL 46 40-60 Jun 11, 2022 [facility] BASIC METABOLIC Specimen Type: SERUM 10:02 AM [place] [facility] PANEL (fasting) No comment enter ed. Ordering Provid er: BOYD GROSS Report Released Date/Time: Jun 04, 2022 02:50 PM Reporting Lab: [facility] [place] [facility] [address] [facility] [address] Performing Lab: [facility] [place] [facility] [address] [facility] [address] UREA NITROGEN 12 7-25 GLUCOSE 108 H 65-100 SODIUM 138 135-145 POTASSIUM 4.2 3.5-5.0 CHLORIDE 107 100-110 CO2 22 20-30 CREATININE, Serum 0.80 0.50-1.40 eGFR(CKD-EPI 2020) >90 >60 Jun 11, 2022 [facility] HEMOGLOBIN A1C Specimen Type: BLOOD 10:02 AM [place] [facility] PANEL Comment: Values obtained from A1C measurements can vary. For atypical A1C assays, a reported value of 7.0 could actually be between 6.72 and 7.28 if measured by a reference method. A reported value of 9.0 could actual ly be between 8.73 and 9.27. Ref: http://www.ngsp.org/CAPdata.asp Ordering Provid er: BOYD GROSS Report Released Date/Time: Jun 04, 2022 02:50 PM Reporting Lab: [place] [facility] [place] [facility] [address] [facility] [address] Performing Lab: [place] [facility] [place] [facility] [address] [facility] [address] HEMOGLOBIN A1C 5.4 4.0-5.6 Jun 11, 2022 10:02 [place] [facility] LIVER FUNCTION Specimen Typ e: SERUM AM [place] [facility] No comment enter ed. Ordering Provid er: BOYD GROSS Report Released Date/Time: Jun 04, 2022 02:50 PM Reporting Lab: [facility] [facility] [address] [facility] [address] Performing Lab: [facility] [place] [facility] [address] [facility] [address] PROTEIN,TOTAL 6.9 6.0-8.3 ALBUMIN 3.8 3.5-5.0 ALKALINE PHOSPHATASE 97 40-150 AST 24 5-34 ALT 17 <6-55 BILIRUBIN, TOTAL 0.9 0.2-1.2 Jun 11, 2022 10:02 [place] [facility] CBC AND DIFF Specimen Typ e: BLOOD AM [place] [facility] (AUTO) No comment enter ed. Ordering Provid er: BOYD GROSS Report Released Date/Time: Jun 04, 2022 02:50 PM Reporting Lab: [place] [facility] [place] [facility] [address] [facility] [address] Performing Lab: [place] [facility] [facility] [address] [facility] [address] WBC 6.46 4.50-11.00 RBC 4.54 4.23-5.66 HGB 14.1 12.8-17 HCT 40.7 39.2-50.4 MCV 89.6 82-99 MCHC 34.6 30.8-35.1 PLT 227 140-360 RDW-CV 12.3 12.0-16.0 [place], Abs 0.51 0.30-1.10 MCH 31.1 26.2-32.6 Neut % 66.4 Lymph % 17.2 [place] % 7.9 Eos % 7.1 Baso % 1.1 Neut, Abs 4.29 2.20-7.60 Lymph, Abs 1.11 1.00-3.20 Eos, Abs 0.46 H 0.03-0.44 Baso, Abs 0.07 0.01-0.13 Immature Gran % 0.3 Immature Gran, Abs 0.02 0.00-0.06 Jun 11, 2022 10:02 AM [facility] PT & INR (COUMADIN) Speci men Type: PLASMA No comment enter ed. Ordering Provid er: SHRUTHI HUNTER Report Released Date/Time: May 20, 2022 12:37 PM Reporting Lab: [place] [facility] [place] [address] [address] Performing Lab: [place] [facility] [facility] [address] [facility] [address] INR 2.5 PROTIME 28.4 H 10.0-13.1 May 20, 2022 11:10 [facility] PT & INR ([place]) Spec imen Type: PLASMA AM (631GE) No comment enter ed. Ordering Provid er: BUCK LACKEY Report Released Date/Time: May 05, 2022 01:53 PM Reporting Lab: [facility] [place] [facility] [address] [facility] [address] Performing Lab: [place] [facility] [facility] [address] [facility] [address] INR 2.7 PROTIME 30.7 H 10.0-13.1 May 05, 2022 [facility] PT & INR ([place]) Specimen Ty pe: PLASMA 11:55 AM [facility] No comment enter ed. Ordering Provid er: SERA MEEKS Report Released Date/Time: May 05, 2022 11:54 AM Reporting Lab: [facility] [place] [facility] [address] [facility] [address] Performing Lab: [facility] [address] [facility] [address] INR 3.0 PROTIME 33.6 H 10.0-13.1 Apr 28, 2022 [facility] PT & INR ([place]) Specimen Ty pe: PLASMA 01:14 PM [facility] No comment enter ed. Ordering Provid er: SERA MEEKS Report Released Date/Time: Mar 13, 2022 03:43 PM Reporting Lab: [facility] [address] [facility] [address] Performing Lab: [address] [address] INR 4.3 PROTIME 47.6 H 10.0-13.1 Encounter Notes: All associated encounter notes This section contains the clinical notes associated to the Encounter. Date/Time Encounter Note(s) Provider Source May 20, 2022 12:31 PM PHARMACY MEDICATION MGT NOTE: SHRUTHI HUNTER [facility] TITLE: PHARMACY ANTICOAGULATION NOTE STANDARD TITLE: PHARMACY MEDICATION MGT NOTE DATE OF NOTE: MAY 20, 2022@12:31 ENTRY DATE: MAY 20, 2022@12:31:04 AUTHOR: SHRUTHI HUNTER EXP COSIGNER: URGENCY: STATUS: COMPLETED PHARMACY ANTICOAGULATION NOTE Has ADDENDA * REFERRED TO CLINIC ON: 06/14/07 PRIMARY CARE PHYSICIAN: Dr. James SHABAZZ INFORMATION: OTHER CONTACT INFORMATION: PATIENT'S PHONE #: [phone] home - can speak w/ Ej perez pt's verbal authorization [phone] [facility] LOCATION: [facility] COUMADIN THERAPY INITIATED ON: 1992 PLANNED [...] 4.3 *Hold 1 dose, then c/w 45mg/week: 05/05/22 7.5 5 0* 5 7.5 5 7.5 3 05/20/22 7.5 5 7.5 5 7.5 5 7.5 2.7 *Unable to reach pt via telephone* CORRECT DOSE: MISSED DOSES: BLEEDING: NEW EVENTS: PROCEDURES: MED CHANGES: DIET CHANGES: ~1 salad/week per previous notes EtOH: ~1-2 beers a day or less - per previous no katy TOBACCO: TABLETS: filled x 90 days on 03/13/22 OTHER: takes dose in AM TABLET STRENGTH: 5mg ASSESSMENT: INR is therapeutic at 2.7 (goal 2-3) PLAN: Left message on pt's answering machine inf orming pt of his INR result from today. Instructed pt to c/w weekly warfarin dose of 45mg/week, taking 7.5mg daily x 4 days except 5mg on Mon/Wed/Fri. Inform ed pt of his next PT/INR scheduled on 06/10/22. Advised pt to contact thi s clinic with any problems, questions, and/or concerns. Return to clinic: May [facility] (3 weeks) Time spent with patient: 3 minutes EDUCATION Provided with verbal instructions: Yes Provided with written instructions: No Provided patient education on the following: Non e INR 2.00-3.00: Therapeutic /es/ Shruthi Hunter PharmD,CACP Clinical Pharmacy Practitioner Signed: 05/20/2022 12:37 06/10/2022 ADDENDUM STATUS: COMPLETED Pt calls asking to change his appt. Original appt date: 06/10/22 New appt date:06/11/22 [X] spreadsheet updated /yeimy/ ZAK BOWER CPHT Clinical Construction Pit Worker Signed: 06/10/2022 07:53
--- OUTSIDE RECORDS SUMMARY | 2022-11-03 05:42 | XMS_ITS | Encounter Summary ---
:1945 Author Organization [facility] rs Address [address] [place] [address] Support Name Relationship Address Phone EJ SCHULTE Unavailable [address] [place] [address] EJ SCHULTE Unavailable [address] [place] [address] Insurance Providers: All historical and current Section [...] Name to Policy Number Spann [facility] Aug 23, [id number] [phone] POLY ON,J PATIENT ION 2015 7 3 JUSTIN GEHA FEHB PREFERRED [facility] Aug 23, [id number] [phone] Bertha RICHARDSON PATIENT PROVIDER AL 2012 ALTH 7 136 JUSTIN ORGANIZAT GOV ION (PPO) GEHA FEHB PREFERRED GEHA Aug 23, [id number] [phone] AKUA RDON,J PATIENT PROVIDER DAVID 2012 2 7 136 JUSTIN ORGANIZAT CTION ION (PPO) DENT MEDICARE MEDICARE PART Sep 23, PART A [id number] Bertha FENG PATIENT (WNR) (M) A [id number] 2 JUSTIN MEDICARE MEDICARE PART Sep 23, PART B [id number] Bertha FENG PATIENT (WNR) (M) B 2010 [id number] 2 JUSTIN Selected Encounter This section includes the information on record at [place] for the Encounter. Date/Time Encounter Type Encounter Description Reason Provider Source Apr 15, 2022 12:00 Outpatient Encounter [facility] AM CONSULT IHE Encounter Template Text not used by [place] Plan of Treatment: Future Appointments (+ 6 months) and Future Tests (+/- 45 days) The Plan of Treatment section includes future care activities for the patient from all [place] treatmentfacilities. This section includes future appointments and future orders which are active, pending orscheduled.Future Appointments This section includes appointments that were scheduled to occur 6 months from the date of the Encounter, up to a maximum of 20 appointments. The data comes from all [place] treatment facilities. Appointment Date/Time Appointment Type Appointment Facili ty Name Apr 30, 2022 01:00 PM AMBULATORY [place]RY [place] [facility] [facility] Jun 25, 2022 08:00 AM [facility] [place] [facility] Jun 25, 2022 01:00 PM [facility] [place] [facility] Jul 30, 2022 01:30 PM AMBULATORY PS[place]IATRY [place] [facility] [facility] Aug 07, 2022 02:00 PM [facility] [place] [facility] Lab Results: +/- 30 days of the encounter This section includes the Chemistry and Hematology Lab Results on record with [place] for the patient. Radiology Reports and Pathology Reports are provided separately, in subsequent sections.Lab Results This section contains the Chemistry/Hematology Results that were resulted 30 days before or 30 daysafter the date of the Encounter. Date/Time Source Result Type Result - Unit Interpretation Reference Range Comment May 05, 2022 [place] [facility] PT & INR ([place]) Specimen Ty pe: PLASMA 11:55 AM [facility] No comment enter ed. Ordering Provid er: SERA MEEKS Report Released Date/Time: May 05, 2022 11:54 AM Reporting [facility] [address] [facility] [address] Performing Lab: [facility] [address] [facility] [address] INR 3.0 PROTIME 33.6 H 10.0-13.1 Apr 28, 2022 [facility] PT & INR ([place]) Specimen Ty pe: PLASMA 01:14 PM [facility] No comment enter ed. Ordering Provid er: SERA MEEKS Report Released Date/Time: Mar 13, 2022 03:43 PM Reporting Lab: [place] [facility] [place] [facility] [address] [facility] [address] Performing Lab: [place] [facility] [address] [facility] [address] INR 4.3 PROTIME 47.6 H 10.0-13.1 Social History: Smoking Status (Most current) and Tobacco Use (All prior to encounter date) This section includes the most current, and the historical, smoking and tobacco-related health factors from the [place] facility where the Encounter took place.Current Smoking Status This section includes the most current smoking, or tobacco-related health factor, from the [place] facility where the Encounter took place. Date/Time Current Smoking Status Comment Facility Mar 20, 2021 01:00 PM VA-TOBACCO FORMER USER [place] [facility] Tobacco Use History This section includes a history of the smoking, or tobacco- related health factors, that were collected on or before the date of the Encounter. The data comes from the [place] facility where the Encounter took place. Date/Time Smoking Status/Tobacco Comment Facility Use Mar 20, 2021 01:00 VA-TOBACCO QUIT 15 YRS OR [facility] PM [place] [facility] January 17, 2020 11:33 VA-TOBACCO FORMER USER [facility] [place] [facility] January 17, 2020 11:33 VA-TOBACCO QUIT 15 YRS OR [facility] AM [place] [facility] Nov 23, 2018 01:22 VA-TOBACCO FORMER USER [facility] [place] [facility] Nov 23, 2018 01:22 VA-TOBACCO QUIT 15 YRS OR [facility] PM [place] [facility] January 18, 2018 12:53 QUIT TOBACCO USE 1-7 [facility] PM YEARS AGO PT STATES HE STOPP 4 YR AGO [place] [facility] Dec 09, 2016 01:07 QUIT TOBACCO USE > 7 [facility] PM YEARS AGO [place] [facility] Nov 11, 2015 01:13 QUIT TOBACCO USE > 7 [facility] Nov 19, 2004 03:17 HISTORY OF SMOKING [facility] PM [facility]rs [facility] Aug 10, 2003 01:03 HISTORY OF SMOKING [facility] [place] [place] [facility] Apr 12, 2002 02:36 QUIT TOBACCO USE > 7 [facility] PM YEARS AGO [facility] Encounter Notes: All associated encounter notes This section contains the clinical notes associated to the Encounter. Date/Time Encounter Note(s) Provider Source Apr 15, 2022 12:00 AM NONVA CONSULT: [facility] LOCAL TITLE: COMMUNITY CARE-CONSULT RESULT NOTE [facility] STANDARD TITLE: NONVA CONSULT DATE OF NOTE: APR 15, 2022 ENTRY DATE: MAY 01 022@15:23:43 AUTHOR: FLORA PRABHAKAR EXP COSIGNER: URGENCY: STATUS: COMPLETED VistA Imaging - Scanned Document SCANNED DOCUMENT SIGNATURE NOT REQUIRED Electronically Filed: 05/01/2022 by: FLORA PRABHAKAR SUPERVISOR [employer]RNAMENTAL IRONWORKING
--- OUTSIDE RECORDS SUMMARY | 2022-11-03 05:42 | XMS_ITS | Encounter Summary ---
:1945 Author Organization [facility] rs Address [address] [place] [phone] Support Name Relationship Address Phone EJ SCHULTE Unavailable [address] [place] [address] EJ SCHULTE Unavailable [address] [place] [address] Insurance Providers: All historical and current Section [...] to Policy Number Spann WILVER PRESCRIPT [facility] Aug 23, [id number] [phone] POLY NIELSON,J PATIENT ION 2015 7 3 JUSTIN GEHA FEHB PREFERRED MANUEL Aug 23, [id number] [phone] Bertha RICHARDSON PATIENT PROVIDER AL 2012 ALTH 7 136 JUSTIN ORGANIZAT GOV ION (PPO) GEHA FEHB PREFERRED GEHA Aug 23, [id number] [phone] AKUA LIZETT,J PATIENT PROVIDER DAVID 2012 2 7 136 JUSTIN ORGANIZAT CTION ION (PPO) DENT MEDICARE MEDICARE PART Sep 23, PART B [id number] Bertha FENG PATIENT (WNR) (M) B [id number] 2 JUSTIN MEDICARE MEDICARE PART Sep 23, PART A [id number] Bertha FENG PATIENT (WNR) (M) A 2010 MJ 2 JUSTIN Selected Encounter This section includes the information on record at [place] for the Encounter. Date/Time Encounter Type Encounter Reason Provider Source Description May 05, 2022 HC PRO PHONE TELEPHONE/ANCILLA ICD-10-CM Z51.81 Aj LACKEY 01:43 PM CALL 5-10 MIN RY Encounter for therapeutic drug level monitoring with Provider Comments: Therapeutic Drug Level Monitoring IHE Encounter Template Text not used by [facility] Assessments - Encounter Diagnoses This section includes the primary and secondary diagnoses documented for the Encounter. Date/Time Primary/Secondary Diagnosis Name Provider Source Diagnosis May 05, 2022 PRIMARY Encounter for BUCK LACKEY [facility] 01:43 PM therapeutic drug CLINIC (631 GE) level monitoring May 05, 2022 SECONDARY Presence of other BUCK LACKEY [facility] 01:43 PM heart-valve CLINIC (631GE) replacement Plan of Treatment: Future Appointments (+ 6 months) and Future Tests (+/- 45 days) The Plan of Treatment section includes future care activities for the patient from all [place] treatmentfacilities. This section includes future appointments and future orders which are active, pending orscheduled.Future Appointments This section includes appointments that were scheduled to occur 6 months from the date of the Encounter, up to a maximum of 20 appointments. The data comes from all [place] treatment facilities. Appointment Date/Time Appointment Type Appointment Facili ty Name Jun 25, 2022 08:00 AM AMBULATORY MEDICINE [facility] Jun 25, 2022 01:00 PM AMBULATORY MEDICINE [facility] Jul 30, 2022 01:30 PM AMBULATORY - PSYCHIATRY [facility] Aug 07, 2022 02:00 PM [facility] Nov 02, 2022 12:10 PM AMBULATORY MEDICINE [facility] Lab Results: +/- 30 days of the encounter This section includes the Chemistry and Hematology Lab Results on record with [place] for the patient. Radiology Reports and Pathology Reports are provided separately, in subsequent sections.Lab Results This section contains the Chemistry/Hematology Results that were resulted 30 days before or 30 daysafter the date of the Encounter. Date/Time Source Result Type Result - Unit Interpretation Reference Range Comment May 20, 2022 11:10 [facility] PT & INR (COUMADIN) Spec imen Type: PLASMA AM (631GE) No comment enter ed. Ordering Provid er: BUCK LACKEY Report Released Date/Time: May 05, 2022 01:53 PM Reporting Lab: [place] [facility] [place] [facility] [address] [address] Performing Lab: [facility] [place] [facility] [address] [address] INR 2.7 PROTIME 30.7 H 10.0-13.1 May 05, 2022 [facility] PT & INR (COUMADIN) Specimen Ty pe: PLASMA 11:55 [facility] No comment enter ed. Ordering Provid er: SERA MEEKS Report Released Date/Time: May 05, 2022 11:54 AM Reporting Lab[facility] [place] [facility] [address] [address] Performing Lab: [place] [facility] [place] [facility] [address] [address] INR 3.0 PROTIME 33.6 H 10.0-13.1 Apr 28, 2022 [facility] PT & INR (COUMADIN) Specimen Ty pe: PLASMA 01:14 PM [facility] No comment enter ed. Ordering Provid er: SERA MEEKS Report Released Date/Time: Mar 13, 2022 03:43 PM Reporting Lab: [place] [facility] [place] [facility] [address] [address] Performing Lab: [place] [facility] [place] [facility] [address] [address] INR 4.3 PROTIME 47.6 H 10.0-13.1 Encounter Notes: All associated encounter notes This section contains the clinical notes associated to the Encounter. Date/Time Encounter Note(s) Provider Source May 05, 2022 01:43 PM PHARMACY MEDICATION MGT NOTE: BUCK LACKEY [facility] LOCAL TITLE: PHARMACY ANTICOAGULATION NOTE (631GE) STANDARD TITLE: PHARMACY MEDICATION MGT NOTE DATE OF NOTE: MAY 05, 2022@13:43 ENTRY DATE: MAY 05, 2022@13:43:21 AUTHOR: BUCK LACKEY COSIGNER: URGENCY: STATUS: COMPLETED PHARMACY ANTICOAGULATION NOTE Has ADDENDA * REFERRED TO CLINIC ON: 06/14/07 PRIMARY CARE PHYSICIAN: Dr. James SHABAZZ INFORMATION: OTHER CONTACT INFORMATION: PATIENT'S PHONE #: [phone] home - can speak w/ Ej perez pt's verbal authorization [phone] cell CLINIC LOCATION: [facility] COUMADIN THERAPY INITIATED ON: 1992 PLANNED [...] 7.5 5 0* 5 7.5 5 7.5 3.0 *spoke with pt* CORRECT DOSE: yes, verified MISSED DOSES: denies BLEEDING: denies NEW EVENTS: denies PROCEDURES: none planned MED CHANGES: resume taking just Tylenol at his u sual lower dose, no Motrin DIET CHANGES: denies; continues to have ~1 salad /week EtOH: ~1-2 beers a day or less - no changes TOBACCO: denies TABLETS: filled x 90 days on 03/13/22 OTHER: takes dose in AM TABLET STRENGTH: 5mg ASSESSMENT: INR is therapeutic at 3.0 (goal 2-3) after holding 1 dose and c/w 45mg/week. PLAN: Informed pt via teleph one of his INR result from today. Instructed pt via telephone to c/w weekly warf elvi dose of 45mg/week, taking 7.5mg daily x 4 days except 5mg on Mon/Wed/Fri. Informed pt of his ne xt PT/INR scheduled on Wed05/19/22 for close monitoring. Return to clinic: Apr - [facility] Time spent with patient: 3 minutes EDUCATION Provided with verbal instructions: Yes Provided with written instructions: No Barriers to learning: No Readiness to learn: Yes Specific dose directions reviewed: Yes Opportunity for questions/discussion: Yes Reports understanding of instructions: Yes Further learning needs: No Provided patient education on the following: None INR 2.00-3.00: Therapeutic /es/ BUCK LACKEY PHARMD CLINICAL TITLE CLERK Signed: 05/05/2022 13:54 Receipt Acknowledged By: 05/05/2022 13:55 /es/ ZAK BOWER CPHT Clinical Chuck Wagon Driver 05/19/2022 ADDENDUM STATUS: COMPLETED Patient called and left stating he is unable to come in for INR today, will report to lab tomorrow, 05/20/22 instead. /yeimy/ EDWIN JUAN PharmD, [facility] Clinical Photocopying Equipment Mechanic Signed: 05/19/2022 08:43
--- OUTSIDE RECORDS SUMMARY | 2022-11-03 05:43 | XMS_ITS | Encounter Summary ---
:1945 Author Organization Department [facility] rs Address [address] [place] [address] Support Name Relationship Address Phone EJ SCHULTE Unavailable [address] [place] [address] EJ SCHULTE Unavailable [address] [place] [address] Insurance Providers: All historical and current Section [...] Name to Policy Number Spann WILVER PRESCRIPT [facility] Aug 23, [id number] [phone] POLY ON,J PATIENT ION 2015 7 3 JUSTIN GEHA FEHB PREFERRED MANUEL Aug 23, [id number] [phone] JIE PHOENIXJ PATIENT PROVIDER MICHELA 2012 ALTH 7 136 JUSTIN ORGANIZAT GOV ION (PPO) GEHA FEHB PREFERRED GEHA Aug 23, [id number] [phone] JIE RDON,J PATIENT PROVIDER DAVID 2012 2 7 136 JUSTIN ORGANIZAT CTION ION (PPO) DENT MEDICARE MEDICARE PART Sep 23, PART A [id number] Bertha FENG PATIENT (WNR) (M) A [id number] 2 JUSTIN MEDICARE MEDICARE PART Sep 23, PART B [id number] Bertha FENG PATIENT (WNR) (M) B 2010 MJ 2 JUSTIN Selected Encounter This section includes the information on record at [place] for the Encounter. Date/Time Encounter Type Encounter Description Reason Provider Source May 29, 2022 10:52 Outpatient Encounter OPTOMETRY AM IHE Encounter Template Text not used by [place] Plan of Treatment: Future Appointments (+ 6 months) and Future Tests (+/- 45 days) The Plan of Treatment section includes future care activities for the patient [facility] This section includes future appointments and future orders which are active, pending orscheduled.Future Appointments This section includes appointments that were scheduled to occur 6 months from the date of the Encounter, up to a maximum of 20 appointments. The data comes from all [facility]. Appointment Date/Time Appointment Type Appointment Facili ty Name Jun 25, 2022 08:00 AM [facility] Jun 25, 2022 01:00 PM AM[facility]UL[facility] [place]IC[facility] [place] [facility] [place] [facility] Jul 30, 2022 01:30 PM AMBULATORY - PSYCHIATRY [place] [facility] [place] [facility] Aug 07, 2022 02:00 PM AMBULATORY MEDICINE [place] [facility] [place] [place] [facility] Nov 02, 2022 12:10 [facility] [place] [facility] Nov 12, 2022 12:45 PM [facility] [place] [facility] Active, Pending, and Scheduled Orders This section includes a listing of several types of active, pending, and scheduled orders, including clinic medications orders, diagnostic test orders, procedure orders and consult orders; where the start date of the order is 45 days before the date of the Encounter or 45 days after the date of the Encounter. The data comes from all [facility]. Test Date/Time Test Type Test Details Facility Name Jun 24, 2022 08:49 AM Consult Order [facility] [place] [facility] SPECIALTY Cons [place] [facility] Artillery Maintenance Supervisor's Choice Jul 06, 2022 05:16 PM Consult Order [facility] [place] [facility] GENERAL Cons [place] [facility] Artillery Maintenance Supervisor's Choice Lab Results: +/- 30 days of the encounter This section includes the Chemistry and Hematology Lab Results on record with [place] for the patient. Radiology Reports and Pathology Reports are provided separately, in subsequent sections.Lab Results This section contains the Chemistry/Hematology Results that were resulted 30 days before or 30 daysafter the date of the Encounter. Date/Time Source Result Type Result - Unit Interpretation Reference Range Comment Jun 11, 2022 [place] [facility] LIPID PANEL FASTING Specimen Ty pe: SERUM 10:02 AM [place] [facility] No comment enter ed. Ordering Provid er: BOYD GROSS Report Released Date/Time: Jun 04, 2022 02:50 PM Reporting Lab: [facility] [place] [facility] [address] [address] [address] Performing Lab: [facility] [place] [facility] [address] [address] CHOLESTEROL 113 <7-199 TRIGLYCERIDE 150 0-150 LDL calculated 37 0-129 CHOL/HDL 2.5 HDL CHOLESTEROL 46 40-60 Jun 11, 2022 [facility] BASIC METABOLIC Specimen Type: SERUM 10:02 AM [place] [facility] PANEL (fasting) No comment enter ed. Ordering Provid er: BOYD GROSS Report Released Date/Time: Jun 04, 2022 02:50 PM Reporting Lab: [facility] [place] [facility] [address] [facility] [address] Performing Lab: [facility] [place] [facility] [address] [address] [address] UREA NITROGEN 12 7-25 GLUCOSE 108 H 65-100 SODIUM 138 135-145 POTASSIUM 4.2 3.5-5.0 CHLORIDE 107 100-110 CO2 22 20-30 CREATININE, Serum 0.80 0.50-1.40 eGFR(CKD-EPI 2020) >90 >60 Jun 11, 2022 10:02 [place] [facility] LIVER FUNCTION Specimen Typ e: SERUM AM [place] [facility] No comment enter ed. Ordering Provid er: BOYD GROSS Report Released Date/Time: Jun 04, 2022 02:50 PM Reporting Lab: [facility] [place] [facility] [address] [facility] [address] Performing Lab: [facility] [place] [facility] [address] [address] PROTEIN,TOTAL 6.9 6.0-8.3 ALBUMIN 3.8 3.5-5.0 ALKALINE PHOSPHATASE 97 40-150 AST 24 5-34 ALT 17 <6-55 BILIRUBIN, TOTAL 0.9 0.2-1.2 Jun 11, 2022 [facility] Specimen Type: BLOOD 10:02 AM [facility] PANEL Comment: Values obtained from A1C measurements can vary. For atypical A1C assays, a reported value of 7.0 could actually be between 6.72 and 7.28 if measured by a reference method. A reported value of 9.0 could actual ly be between 8.73 and 9.27. Ref: http://www.ngsp.org/CAPdata.asp Ordering Provid er: BOYD GROSS Report Released Date/Time: Jun 04, 2022 02:50 PM Reporting Lab: [facility] [address] [address] Performing Lab: [address] [address] HEMOGLOBIN A1C 5.4 4.0-5.6 Jun 11, 2022 10:02 [facility] CBC AND DIFF Specimen Typ e: BLOOD AM [facility] ([facility] No comment enter ed. Ordering Provid er: BOYD GROSS Report Released Date/Time: Jun 04, 2022 02:50 PM Reporting Lab: [facility] [address] [address] Performing Lab: [facility] [address] [address] WBC 6.46 4.50-11.00 RBC 4.54 4.23-5.66 HGB 14.1 12.8-17 HCT 40.7 39.2-50.4 MCV 89.6 82-99 MCHC 34.6 30.8-35.1 PLT 227 140-360 RDW-CV 12.3 12.0-16.0 Stafford, Abs 0.51 0.30-1.10 MCH 31.1 26.2-32.6 Neut % 66.4 Lymph % 17.2 Stafford % 7.9 Eos % 7.1 Baso % 1.1 Neut, Abs 4.29 2.20-7.60 Lymph, Abs 1.11 1.00-3.20 Eos, Abs 0.46 H 0.03-0.44 Baso, Abs 0.07 0.01-0.13 Immature Gran % 0.3 Immature Gran, Abs 0.02 0.00-0.06 Jun 11, 2022 10:02 AM [facility] PT & INR (COUMADIN) Speci men Type: PLASMA No comment enter ed. Ordering Provid er: CIRILO HUNTER Report Released Date/Time: May 20, 2022 12:37 PM Reporting Lab: [place] [facility] [place] [facility] [address] [address] [address] Performing Lab: [place] [facility] [place] [address] [address] INR 2.5 PROTIME 28.4 H 10.0-13.1 May 20, 2022 11:10 [facility] PT & INR (COUMADIN) Spec imen Type: PLASMA AM (631GE) No comment enter ed. Ordering Provid er: BUCK LACKEY Report Released Date/Time: May 05, 2022 01:53 PM Reporting Lab: [place] [facility] [place] [facility] [address] [facility] [address] Performing Lab: [place] [facility] [facility] [address] [facility] [address] INR 2.7 PROTIME 30.7 H 10.0-13.1 May 05, 2022 [facility] PT & INR (COUMADIN) Specimen Ty pe: PLASMA 11:55 AM [facility] No comment enter ed. Ordering Provid er: SERA MEEKS Report Released Date/Time: May 05, 2022 11:54 AM Reporting Lab: [place] [facility] [facility] [address] [facility] [address] Performing Lab: [place] [facility] [place] [address] [address] INR 3.0 PROTIME 33.6 H 10.0-13.1 Social History: Smoking Status (Most current) and Tobacco Use (All prior to encounter date) This section includes the most current, and the historical, smoking and tobacco-related health factors from the [place] facility where the Encounter took place.Current Smoking Status This section includes the most current smoking, or tobacco-related health factor, from the [place] facility where the Encounter took place. Date/Time Current Smoking Status Comment Facility Apr 30, 2022 01:00 PM VA-TOBACCO FORMER USER [facility] CN[facility] Tobacco Use History This section includes a history of the smoking, or tobacco- related health factors, that were collected on or before the date of the Encounter. The data comes from the [place] facility where the Encounter took place. Date/Time Smoking Status/Tobacco Comment Facility Use Apr 30, 2022 01:00 VA-TOBACCO QUIT 15 YRS OR [facility] PM MORE [place] [facility] Mar 20, 2021 01:00 VA-TOBACCO FORMER USER VA CNT RL W[facility] PM [place] [facility] Mar 20, 2021 01:00 VA-TOBACCO QUIT 15 YRS OR [facility] PM MORE [place] [facility] January 17, 2020 11:33 VA-TOBACCO FORMER USER VA CNT RL [facility] AM [place] [facility] January 17, 2020 11:33 VA-TOBACCO QUIT 15 YRS OR VA CN[facility] AM MORE [place] [facility] Nov 23, 2018 01:22 VA-TOBACCO FORMER USER VA CNT RL [facility] PM [place] [facility] Nov 23, 2018 01:22 VA-TOBACCO QUIT 15 YRS OR [facility] PM MORE [place] [facility] January 18, 2018 12:53 QUIT TOBACCO USE 1-7 VA CN[facility]L W[facility] PM YEARS AGO PT STATES HE STOPP 4 YR AGO [place] [facility] Dec 09, 2016 01:07 QUIT TOBACCO USE > 7 VA CN[facility] PM YEARS AGO [place] [facility] Nov 11, 2015 01:13 QUIT TOBACCO USE > 7 VA CN[facility] PM YEARS AGO [place] [facility] Nov 19, 2004 03:17 HISTORY OF SMOKING [facility] PM quit 30 yrs ago [place] [facility] Aug 10, 2003 01:03 HISTORY OF SMOKING [facility] PM [place] [facility] Apr 12, 2002 02:36 QUIT TOBACCO USE > 7 VA CNTRL WSTR[facility] PM YEARS AGO [facility] Encounter Notes: All associated encounter notes This section contains the clinical notes associated to the Encounter. Date/Time Encounter Note(s) Provider Source May 29, 2022 10:53 LETTERS: PAYAM EDWARDS [place] [facility] AM [facility] TITLE: PATIENT LETTER (B) [facility] ST[facility] T[facility]: LETTERS DATE OF NOTE: MAY 29, 2022@10:53 ENTRY DATE: MAY 29, 2022@10:54 AUTHOR: PAYAM EDWARDS EXP COSIGNER: URGENCY: STATUS: COMPLETED [facility] Toll Free Number [facility] scheduling can be jie ched at ext. [phone] [facility]- ext. [phone] [facility]- ext. [phone] [facility]- ext. [phone] MAY 29, 2022 KAMLA SCHULTE [address], [place] [address] Dear KAMLA SCHULTE Our records indicate you are due for an appointm ent in VISUAL IMAGING -- OPTOMETRY Thank you for choosing the [facility] as your primary choice for health care. As a partner in your health care, we are contacting you in writing since we have been unsuccessful in our a ttempts to reach you to date. We want to assure you we are doing everything possi ble to schedule Veterans for their VA medical care appointments. If you would like to be seen, please contact [place] Call Center at [phone] Ext. [phone] Option 2, then option 4, to schedule a n appointment. Thank you for your service to our nation, and we look forward to hearing from you soon. Sincerely, [facility] [address] [facility] [address] [place] [address] [place], [place] [id number] ext. [phone] [facility] [place] [facility] [address] [facility] [address] [place] [address] [place] [address] [phone] [facility] [address] [address] [place] [address] ext. [phone] [facility] [address] [place] [address] ext. [phone] May 29, 2022 10:52 TELEPHONE ENCOUNTER NOTE: PAYAM EDWARDS [place] [facility] AM LOCAL TITLE: TELEPHONE NOTE/SPECIALTY CLINIC [facility] STANDARD TITLE: TELEPHONE ENCOUNTER NOTE DATE OF NOTE: MAY 29, 2022@10:52 ENTRY DATE: MAY 29, 2022@10:52:53 AUTHOR: PAYAM EDWARDS EXP COSIGNER: URGENCY: STATUS: COMPLETED Called pt and left a message asking pt to call back. When pt calls back, please reschedule the CXC pid 10/04/2022 with a ny available provider. CXC letter also mailed to address on file. also mailed letter. /yeimy/ PAYAM EDWARDS ADVANCED TECHNOLOGY DIRECTOR Signed: 05/29/2022 10:53
--- OUTSIDE RECORDS SUMMARY | 2022-11-03 05:44 | XMS_ITS | Encounter Summary ---
:1945 Author Organization [facility] rs Address [address] [place] [id number] Support Name Relationship Address Phone EJ SCHULTE Unavailable [address] [place] [address] EJ SCHULTE Unavailable [address] [place] [address] Insurance Providers: All historical and current Section Date Range: From patient's date of to the date document was created.This section includes the names of all active insurance providers for the patient. Insurance Type of Plan Start of End of Group Member Insurance Policy P atient's Provider Coverage Name Policy Policy Number ID Provider's Spann's Relationship Coverage Coverage Telephone Name to Policy Number Spann [facility] PRESCRIPT GE Aug 23, [id number] [phone] POLY ON,J PATIENT ION 2015 7 3 JUSTIN GEHA FEHB PREFERRED MANUEL Aug 23, [id number] [phone] AKUALisa [place],J PATIENT PROVIDER AL 2012 ALTH 7 136 JUSTIN ORGANIZAT GOV ION (PPO) GEHA FEHB PREFERRED GEHA Aug 23, [id number] [phone] AKUA RDON,J PATIENT PROVIDER DAVID 2012 2 7 136 JUSTIN ORGANIZAT CTION ION (PPO) DENT MEDICARE MEDICARE PART Sep 23, PART A [id number] Bertha FENG PATIENT (WNR) (M) A [id number] 2 JUSTIN MEDICARE MEDICARE PART Sep 23, PART B [id number] SIMBA NBertha PATIENT (WNR) (M) B 2010 2 JUSTIN Selected Encounter This section includes the information on record at [place] for the Encounter. 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 Date/Time Primary/Secondary Diagnosis Name Provider Source Diagnosis Jun 11, 2022 PRIMARY nursing home (current) JENNIFER KEENAN [facility] 03:59 PM use of A A anticoagulants Jun 11, 2022 SECONDARY Encounter for JENNIFER KEENANFIELD 03:59 PM therapeutic drug A A level monitoring Plan of Treatment: Future Appointments (+ 6 months) and Future Tests (+/- 45 days) The Plan of Treatment section includes future care activities for the patient from all [facility]. This section includes future appointments and future orders which are active, pending orscheduled.Future Appointments This section includes appointments that were scheduled to occur 6 months from the date of the Encounter, up to a maximum of 20 appointments. The data comes from all [facility]. Appointment Date/Time Appointment Type Appointment Facili ty Name Jun 25, 2022 08:00 AM [facility] Jun 25, 2022 01:00 PM [facility] [place] [facility] Jul 30, 2022 01:30 PM AMBULATORY - PSYCHIATRY [facility] [place] [facility] Aug 07, 2022 02:00 PM [facility] [place] [facility] Nov 02, 2022 12:[address] [facility] [place] [facility] Nov 12, 2022 12:45 PM [facility]ULATORY MEDICINE [facility] Active, Pending, and Scheduled Orders This section includes a listing of several types of active, pending, and scheduled orders, including clinic medications orders, diagnostic test orders, procedure orders and consult orders; where the start date of the order is 45 days before the date of the Encounter or 45 days after the date of the Encounter. The data comes from all [facility]. Test Date/Time Test Type Test Details Facility Name Jun 24, 2022 08:49 AM Consult Order COMMUNITY [facility]ARE-DENTAL [facility] SPECIALTY [place] [facility] Wood [employer] [facility] Jul 06, 2022 05:16 PM Consult Order COMMUNITY [facility]-DENTAL [place] [facility] GENERAL [place] [facility] Lab Results: +/- 30 days of [...] Result - Unit Interpretation Reference Range Comment Jul 08, 2022 10:56 AM [place] PT & INR (COUMADIN) Speci men Type: PLASMA No comment enter ed. Ordering Provid er: SUDHEER KEENAN Report Released Date/Time: Jun 11, 2022 04:07 PM Reporting Lab: [facility] [address] [facility] [address] Performing Lab: [facility] [address] [facility] [address] INR 2.7 PROTIME 31.6 H 10.0-13.1 Jun 11, 2022 [facility] LIPID PANEL FASTING Specimen Ty pe: SERUM 10:02 AM [facility] No comment enter ed. Ordering Provid er: BOYD GROSS Report Released Date/Time: Jun 04, 2022 02:50 PM Reporting Lab: [facility] [address] [facility] [address] Performing Lab: [facility] [address] [facility] [address] CHOLESTEROL 113 <7-199 TRIGLYCERIDE 150 0-150 LDL calculated 37 0-129 CHOL/HDL 2.5 HDL CHOLESTEROL 46 40-60 Jun 11, 2022 [facility] HEMOGLOBIN A1C Specimen Type: BLOOD 10:02 AM [facility] PANEL Comment: Values obtained from A1C measurements can vary. For atypical A1C assays, a reported value of 7.0 could actually be between 6.72 and 7.28 if measured by a reference method. A reported value of 9.0 could actual ly be between 8.73 and 9.27. Ref: http://www.ngsp.org/CAPdata.asp Ordering Provid er: BOYD GROSS Report Released Date/Time: Jun 04, 2022 02:50 PM Reporting Lab: [facility] [place] [facility] [address] [facility] [address] Performing Lab: [facility] [place] [facility] [address] [facility] [address] HEMOGLOBIN A1C 5.4 4.0-5.6 Jun 11, 2022 [facility] BASIC METABOLIC Specimen Type: SERUM 10:02 AM [place] [facility] PANEL (fasting) No comment enter ed. Ordering Provid er: BOYD GROSS Report Released Date/Time: Jun 04, 2022 02:50 PM Reporting Lab: [facility] [place] [facility] [address] [facility] [address] Performing Lab: [facility] [place] [facility] [address] [facility] [address] UREA NITROGEN 12 7-25 GLUCOSE 108 H 65-100 SODIUM 138 135-145 POTASSIUM 4.2 3.5-5.0 CHLORIDE 107 100-110 CO2 22 20-30 CREATININE, Serum 0.80 0.50-1.40 eGFR(CKD-EPI 2020) >90 >60 Jun 11, 2022 10:02 [facility] LIVER FUNCTION Specimen Typ e: SERUM AM [place] [facility] No comment enter ed. Ordering Provid er: BOYD GROSS Report Released Date/Time: Jun 04, 2022 02:50 PM Reporting Lab: [facility] [place] [facility] [address] [facility] [address] Performing Lab: [facility] [place] [facility] [address] [facility] [address] PROTEIN,TOTAL 6.9 6.0-8.3 ALBUMIN 3.8 3.5-5.0 ALKALINE PHOSPHATASE 97 40-150 AST 24 5-34 ALT 17 <6-55 BILIRUBIN, TOTAL 0.9 0.2-1.2 Jun 11, 2022 10:02 [facility] CBC AND DIFF Specimen Typ e: BLOOD AM [facility] (AUTO) No comment enter ed. Ordering Provid er: BOYD GROSS Report Released Date/Time: Jun 04, 2022 02:50 PM Reporting Lab: [facility] [address] [facility] [address] Performing Lab: [facility] [address] [facility] [address] WBC 6.46 4.50-11.00 RBC 4.54 4.23-5.66 HGB 14.1 12.8-17 HCT 40.7 39.2-50.4 MCV 89.6 82-99 MCHC 34.6 30.8-35.1 PLT 227 140-360 RDW-CV 12.3 12.0-16.0 Solano, Abs 0.51 0.30-1.10 MCH 31.1 26.2-32.6 Neut % 66.4 Lymph % 17.2 [place]ano % 7.9 Eos % 7.1 Baso % 1.1 Neut, Abs 4.29 2.20-7.60 Lymph, Abs 1.11 1.00-3.20 Eos, Abs 0.46 H 0.03-0.44 Baso, Abs 0.07 0.01-0.13 Immature Gran % 0.3 Immature Gran, Abs 0.02 0.00-0.06 Jun 11, 2022 10:02 AM [place] PT & INR (COUMADIN) Speci men Type: PLASMA No comment enter ed. Ordering Provid er: CIRILO HUNTER Report Released Date/Time: May 20, 2022 12:37 PM Reporting Lab: [facility] [address] [facility] [address] Performing Lab: [facility] [address] [facility] [address] INR 2.5 PROTIME 28.4 H 10.0-13.1 May 20, 2022 11:10 [facility] PT & INR (COUMADIN) Spec imen Type: PLASMA AM (631GE) No comment enter ed. Ordering Provid er: BUCK LACKEY Report Released Date/Time: May 05, 2022 01:53 PM Reporting Lab: [facility] [address] [address] Performing Lab: [facility] [address] [address] INR 2.7 PROTIME 30.7 H 10.0-13.1 Encounter Notes: All associated encounter notes This section contains the clinical notes associated to the Encounter. Date/Time Encounter Note(s) Provider Source Jun 11, 2022 03:59 PM PHARMACY MEDICATION MGT NOTE: JOY KEENAN [facility] TITLE: PHARMACY ANTICOAGULATION NOTE STANDARD TITLE: PHARMACY MEDICATION MGT NOTE DATE OF NOTE: JUN 11, 2022@15:59 ENTRY DATE: JUN 11, 2022@15:59:36 AUTHOR: SUDHEER KEENAN EXP COSIGNER: URGENCY: STATUS: COMPLETED PHARMACY ANTICOAGULATION NOTE Has ADDENDA * REFERRED TO CLINIC ON: 06/14/07 PRIMARY CARE PHYSICIAN: Dr. James SHABAZZ INFORMATION: OTHER CONTACT INFORMATION: PATIENT'S PHONE #: [phone] home - can speak w/ Ej perez pt's verbal authorization [phone] [facility] LOCATION: [facility] COUMADIN THERAPY INITIATED ON: 1992 PLANNED DURATION OF THERAPY: lifetime ESTIMATED STOP DATE: n/a INDICATION FOR COUMADIN: St See's valve GOAL INR: 2-3 (goal changed 09/29/13) RELEVANT HISTORY: DRUG INTERACTIONS: citalopram, lansoprazole, APA P, coenzyme Q10 Last CBC: 12/19/21 Last PCP appt: 12/25/21 RECENT DOSING HISTORY (dose in mg): DATE Wed FRI SAT INR 10/20/21 5 7.5 5 5 [...] 5 7.5 5 7.5 5 7.5 2.7 06/11/22 7.5 5 7.5 5 7.5 5 7.5 2.5 *Unable to reach pt via telephone* CORRECT DOSE: MISSED DOSES: BLEEDING: NEW EVENTS: PROCEDURES: MED CHANGES: DIET CHANGES: ~1 salad/week per previous notes EtOH: ~1-2 beers a day or less - per previous no katy TOBACCO: TABLETS: filled x 90 days on 03/13/22 OTHER: takes dose in AM TABLET STRENGTH: 5mg ASSESSMENT: INR is therapeutic at 2.5 (goal 2-3) PLAN: Left message on pt's answering machine inf orming pt of his INR result from today. Instructed pt to c/w weekly warfarin dose of 45mg/week, taking 7.5mg daily x 4 days except 5mg on Mon/Wed/Fri. Inform ed pt of his next PT/INR scheduled on 07/02/22. Advised patient to contact this clinic with any questions, concerns, and/or changes in medications/healt h/diet. Pt was also asked to call this clinic in the event he has missed doses/ta gil extra doses or is taking other than as recorded above. Return to clinic: Jun ( 3 weeks) MNM Time spent with patient: 5 minutes EDUCATION Provided with verbal instructions: Yes Provided with written instructions: No Provided patient education on the following: Dose INR 2.00-3.00: Therapeutic /yeimy/ SUDHEER KEENAN CLINICAL CANVASSING MANAGER Signed: 06/11/2022 16:06 Receipt Acknowledged By: 06/11/2022 16:08 /yeimy/ ZAK BOWER CPHT [employer] Laboratory Assistant 06/29/2022 ADDENDUM STATUS: COMPLETED Patient LVM asking for renewal of coumadin to be mailed. /yeimy/ ZAK BOWER CPHT [employer] Laboratory Assistant Signed: 06/29/2022 08:02 Receipt Acknowledged By: 06/29/2022 08:10 /yeimy/ Jazmyn Grullon, Vikram, [facility] Clinical Center Mgr 07/02/2022 ADDENDUM STATUS: COMPLETED Left message on pt's anwering machine re garding pt's missed PT/INR appt today. Advised pt to go to the lab on 07/06/22 or to co ntact this clinic BERTO to reschedule his appt. /yeimy/ ZAK BOWER CPHT [employer] Laboratory Assistant Signed: 07/02/2022 14:56 07/07/2022 ADDENDUM STATUS: COMPLETED Patient LVM stating that he will be in for INR drawn on 07/08/22. He also states that he would like [phone] cell to be his m ain contact number. /yeimy/ ZAK BOWRE CPHT [employer] Laboratory Assistant Signed: 07/07/2022 13:50
--- OUTSIDE RECORDS SUMMARY | 2022-11-03 05:44 | XMS_ITS ---
:1945 Author Organization [facility] rs Address [address] [place] [id number] Support Name Relationship Address Phone EJ SCHULTE Unavailable [address] [place] [address] EJ SCHULTE Unavailable [address] [place] [address] Insurance Providers: All historical and current Section [...] Policy Number Spann WILVER PRESCRIPT [facility] Aug 23, [id number] [phone] POLY NIELSON,J PATIENT ION 2015 7 3 JUSTIN GEHA FEHB PREFERRED [facility] Aug 23, [id number] [phone] Bertha RICHARDSON PATIENT PROVIDER AL 2012 ALTH 7 136 JUSTIN ORGANIZAT GOV ION (PPO) GEHA FEHB PREFERRED GEHA Aug 23, [id number] [phone] AKUA LIZETT,J PATIENT PROVIDER DAVID 2012 2 7 136 JUSTIN ORGANIZAT CTION ION (PPO) DENT MEDICARE MEDICARE PART Sep 23, PART A [id number] Bertha FENG PATIENT (WNR) (M) A 2010 [id number] 2 JUSTIN MEDICARE MEDICARE PART Sep 23, PART B [id number] Bertha FENG PATIENT (WNR) (M) B 2010 [id number] 2 JUSTIN Selected Encounter This section includes the information on record at NM for the Encounter. Date/Time Encounter Type Encounter Description Reason Provider Source Jun 08, 2022 01:39 Outpatient Encounter PRIMARY CARE/MEDICINE PM IHE Encounter Template Text not used by NM Plan of Treatment: Future Appointments (+ 6 months) and Future Tests (+/- 45 days) The Plan of Treatment section includes future care activities for the patient from all [facility] This section includes future appointments and future orders which are active, pending orscheduled.Future Appointments This section includes appointments that were scheduled to occur 6 months from the date of the Encounter, up to a maximum of 20 appointments. The data comes from all NM treatment [facility]. Appointment Date/Time Appointment Type Appointment Facili ty Name Jun 25, 2022 08:00 AM AMBULATORY MEDICINE [place] [facility] [place] [facility] Jun 25, 2022 01:00 PM AMBULATORY MEDICINE [place] [facility] [place] [facility] Jul 30, 2022 01:30 PM AMBULATORY - PSYCHIATRY NM [facility] [place] [facility] Aug 07, 2022 02:00 PM AMBULATORY MEDICINE [place] [facility] [place] [facility] Nov 02, 2022 12:10 PM [facility] [place] [facility] Nov 12, 2022 12:45 PM [facility] [place] [facility] Active, Pending, and Scheduled Orders This section includes a listing of several types of active, pending, and scheduled orders, including clinic medications orders, diagnostic test orders, procedure orders and consult orders; where the start date of the order is 45 days before the date of the Encounter or 45 days after the date of the Encounter. The data comes from all [facility]. Test Date/Time Test Type Test Details Facility Name Jun 24, 2022 08:49 AM Consult Order [facility] SPECIALTY Cons [place] [facility] [employer] Operator[employer] Choice Jul 06, 2022 05:16 PM Consult Order [facility] GENERAL Cons [place] [facility] [employer] Operator's Choice Lab Results: +/- 30 days of the encounter This section includes the Chemistry and Hematology Lab Results on record with NM for the patient. Radiology Reports and Pathology Reports are provided separately, in subsequent sections.Lab Results This section contains the Chemistry/Hematology Results that were resulted 30 days before or 30 daysafter the date of the Encounter. Date/Time Source Result Type Result - Unit Interpretation Reference Range Comment Jul 08, 2022 10:56 AM [facility] PT & INR ([place]) Speci men Type: PLASMA No comment enter ed. Ordering Provid er: SUDHEER KEENAN Report Released Date/Time: Jun 11, 2022 04:07 PM Reporting Lab: NM [facility] [place] [facility] [address] [facility] [address] Performing Lab: [facility] [place] [facility] [address] [facility] [address] INR 2.7 PROTIME 31.6 H 10.0-13.1 Jun 11, 2022 [facility] LIPID PANEL FASTING Specimen Ty pe: SERUM 10:02 AM [place] [facility] No comment enter ed. Ordering Provid er: BOYD GROSS Report Released Date/Time: Jun 04, 2022 02:50 PM Reporting Lab: NM [facility] [place] [facility] [address] [facility] [address] Performing Lab: NM [facility] [place] [facility] [address] [facility] [address] CHOLESTEROL 113 <7-199 TRIGLYCERIDE 150 0-150 LDL calculated 37 0-129 CHOL/HDL 2.5 HDL CHOLESTEROL 46 40-60 Jun 11, 2022 [facility] BASIC METABOLIC Specimen Type: SERUM 10:02 AM [place] [facility] PANEL (fasting) No comment enter ed. Ordering Provid er: BOYD GROSS Report Released Date/Time: Jun 04, 2022 02:50 PM Reporting Lab: [facility] [place] [facility] [address] [facility] [address] Performing Lab: NM [facility] [place] [facility] [address] [facility] [address] UREA NITROGEN 12 7-25 GLUCOSE 108 H 65-100 SODIUM 138 135-145 POTASSIUM 4.2 3.5-5.0 CHLORIDE 107 100-110 CO2 22 20-30 CREATININE, Serum 0.80 0.50-1.40 eGFR(CKD-EPI 2020) >90 >60 Jun 11, 2022 [facility] HEMOGLOBIN A1C Specimen Type: BLOOD 10:02 AM [place] [facility] PANEL Comment: Values obtained from A1C measurements can vary. For atypical A1C assays, a reported value of 7.0 could actually be between 6.72 and 7.28 if measured by a reference method. A reported value of 9.0 could actual ly be between 8.73 and 9.27. Ref: http://www.ngsp.org/CAPdata.asp Ordering Provid er: BOYD GROSS Report Released Date/Time: Jun 04, 2022 02:50 PM Reporting Lab: [facility] [place] [facility] [address] [facility] [address] Performing Lab: [facility] [place] [facility] [address] [facility] [address] HEMOGLOBIN A1C 5.4 4.0-5.6 Jun 11, 2022 10:02 NM CN[facility]L [facility] LIVER FUNCTION Specimen Typ e: SERUM AM [facility] No comment enter ed. Ordering Provid er: BOYD GROSS Report Released Date/Time: Jun 04, 2022 02:50 PM Reporting Lab: [facility] [place] [facility] [address] [facility] [address] Performing Lab: [facility] [place] [facility] [address] [facility] [address] PROTEIN,TOTAL 6.9 6.0-8.3 ALBUMIN 3.8 3.5-5.0 ALKALINE PHOSPHATASE 97 40-150 AST 24 5-34 ALT 17 <6-55 BILIRUBIN, TOTAL 0.9 0.2-1.2 Jun 11, 2022 10:02 NM CNTRL W[facility]N CBC AND DIFF Specimen Typ e: BLOOD AM [facility] (AUTO) No comment enter ed. Ordering Provid er: BOYD GROSS Report Released Date/Time: Jun 04, 2022 02:50 PM Reporting Lab: [facility] [place] [facility] [address] [facility] [address] Performing Lab: [facility]ITAL[facility]ITALTR[facility] [place] [facility] [address] [facility] [address] WBC 6.46 4.50-11.00 RBC 4.54 4.23-5.66 HGB 14.1 12.8-17 HCT 40.7 39.2-50.4 MCV 89.6 82-99 MCHC 34.6 30.8-35.1 PLT 227 140-360 RDW-CV 12.3 12.0-16.0 Colbert, Abs 0.51 0.30-1.10 MCH 31.1 26.2-32.6 Neut % 66.4 Lymph % 17.2 Colbert % 7.9 Eos % 7.1 Baso % 1.1 Neut, Abs 4.29 2.20-7.60 Lymph, Abs 1.11 1.00-3.20 Eos, Abs 0.46 H 0.03-0.44 Baso, Abs 0.07 0.01-0.13 Immature Gran % 0.3 Immature Gran, Abs 0.02 0.00-0.06 Jun 11, 2022 10:02 AM [facility] & INR ([place]) Speci men Type: PLASMA No comment enter ed. Ordering Provid er: CIRILO HUNTER Report Released Date/Time: May 20, 2022 12:37 PM Reporting Lab: [address] [address] Performing Lab: [address] [address] INR 2.5 PROTIME 28.4 H 10.0-13.1 May 20, 2022 11:10 [facility] PT & INR ([place]) Spec imen Type: PLASMA AM (631GE) No comment enter ed. Ordering Provid er: BUCK LACKEY Report Released Date/Time: May 05, 2022 01:53 PM Reporting Lab: [address] [address] Performing Lab: [address] [address] INR 2.7 PROTIME 30.7 H 10.0-13.1 Social History: Smoking Status (Most current) and Tobacco Use (All prior to encounter date) This section includes the most current, and the historical, smoking and tobacco-related health factors from the NM facility where the Encounter took place.Current Smoking Status This section includes the most current smoking, or tobacco-related health factor, from the NM facility where the Encounter took place. Date/Time Current Smoking Status Comment Facility Apr 30, 2022 01:00 PM VA-TOBACCO FORMER USER [facility] [place] [facility] Tobacco Use History This section includes a history of the smoking, or tobacco- related health factors, that were collected on or before the date of the Encounter. The data comes from the NM facility where the Encounter took place. Date/Time Smoking Status/Tobacco Comment Facility Use Apr 30, 2022 01:00 VA-TOBACCO QUIT 15 YRS OR VA [facility] PM MORE [place] [facility] Mar 20, 2021 01:00 VA-TOBACCO FORMER USER VA CNT RL WSTRN PM [place] [facility] Mar 20, 2021 01:00 VA-TOBACCO QUIT 15 YRS OR VA [facility] PM MORE [place] [facility] January 17, 2020 11:33 VA-TOBACCO FORMER USER VA CNT RL [facility]N AM [place] [facility] January 17, 2020 11:33 VA-TOBACCO QUIT 15 YRS OR VA [facility] AM MORE [place] [facility] Nov 23, 2018 01:22 VA-TOBACCO FORMER USER VA CNT RL WSTRN PM [place] [facility] Nov 23, 2018 01:22 VA-TOBACCO QUIT 15 YRS OR [facility] PM MORE [place] [facility] January 18, 2018 12:53 QUIT TOBACCO USE 1-7 VA CNTRL W[facility] PM YEARS AGO PT STATES HE STOPP 4 YR AGO [place] [facility] Dec 09, 2016 01:07 QUIT TOBACCO USE > 7 VA CN[facility] PM YEARS AGO [place] [facility] Nov 11, 2015 01:13 QUIT TOBACCO USE > 7 VA CN[facility] PM YEARS AGO [place] [facility] Nov 19, 2004 03:17 HISTORY OF SMOKING VA [facility] W [facility] PM quit 30 yrs ago [place] [facility] Aug 10, 2003 01:03 HISTORY OF SMOKING [facility] W [facility] PM [place] [facility] Apr 12, 2002 02:36 QUIT TOBACCO USE > 7 VA CN[facility]L W[facility] PM YEARS AGO [facility] Encounter Notes: All associated encounter notes This section contains the clinical notes associated to the Encounter. Date/Time Encounter Note(s) Provider Source Jun 08, 2022 01:40 PM ADMINISTRATIVE NOTE: ALICIA MELTON NM CN TRL WSTRN LOCAL TITLE: ADMINISTRATIVE NOTE [place] [facility] STANDARD TITLE: ADMINISTRATIVE NOTE DATE OF NOTE: JUN 08, 2022@13:40 ENTRY DATE: JUN 08, 2022@13:40:05 AUTHOR: ALICIA MELTON EXP COSIGNER: URGENCY: STATUS: COMPLETED Reminder call for your upcoming Primary Care Renetta ointment and the need for preparations prior to your upco boyd appt. 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
--- OUTSIDE RECORDS SUMMARY | 2022-11-03 05:44 | XMS_ITS | Encounter Summary ---
:1945 Author Organization [facility] rs Address [address] [place] [address] Support Name Relationship Address Phone EJ SCHULTE Unavailable [address] [place] [address] EJ SCHULTE Unavailable [address] [place] [address] Insurance Providers: All historical and current Section [...] Name to Policy Number Spann WILVER MESSERT [facility] Aug 23, [id number] [phone] POLY ON,J PATIENT ION 2015 7 3 JUSTIN GEHA FEHB PREFERRED [facility] Aug 23, [id number] [phone] Bertha RICHARDSON PATIENT PROVIDER AL 2012 ALTH 7 136 JUSTIN ORGANIZAT GOV ION (PPO) GEHA FEHB PREFERRED GEHA Aug 23, [id number] [phone] AKUA RDON,J PATIENT PROVIDER DAVID 2012 2 7 136 JUSTIN ORGANIZAT CTION ION (PPO) DENT MEDICARE MEDICARE PART Sep 23, PART A [id number] Bertha FENG PATIENT (WNR) (M) A [id number] 2 JUSTIN MEDICARE MEDICARE PART Sep 23, PART B [id number] Bertha FENG PATIENT (WNR) (M) B 2010 [id number] 2 JUSTIN Selected Encounter This section includes the information on record at OR for the Encounter. Date/Time Encounter Type Encounter Description Reason Provider Source May 20, 2022 12:00 Outpatient Encounter COMMUNITY CARE AM CONSULT IHE Encounter Template Text not used by OR Plan of Treatment: Future Appointments (+ 6 months) and Future Tests (+/- 45 days) The Plan of Treatment section includes future care activities for the patient from all [place] [facility]. This section includes future appointments and [...] - MEDICINE [place] [facility] [place] [facility] Jun 25, 2022 01:00 PM AMBULATORY MEDICINE [place] [facility] [place] [facility] Jul 30, 2022 01:30 PM AMBULATORY - PSYCHIATRY [place] CN[facility]L [facility] [place] [facility] Aug 07, 2022 02:00 PM AMBULATORY MEDICINE [place] [facility] [place] [facility] Nov 02, 2022 12:10 PM AMBULATORY MEDICINE [place] [facility] [place] [facility] Nov 12, 2022 12:45 PM AMBULATORY MEDICINE [place] [facility] [place] [facility] Active, Pending, and Scheduled Orders This section includes a listing of several types of active, pending, and scheduled orders, including clinic medications orders, diagnostic test orders, procedure orders and consult orders; where the start date of the order is 45 days before the date of the Encounter or 45 days after the date of the Encounter. The data comes from all [place] treatment [facility]. Test Date/Time Test Type Test Details Facility Name Jun 24, 2022 08:49 AM Consult Order [facility] OR C NTRL WSTRN SPECIALTY Cons [place] [facility] Audit Mgr's Choice Lab Results: +/- 30 days of [...] Interpretation Reference Range Comment Jun 11, 2022 OR CNTRL WSTRN HEMOGLOBIN A1C Specimen Type: BLOOD 10:02 AM [place] [facility] PANEL Comment: Values obtained from A1C measurements can vary. For atypical A1C assays, a reported value of 7.0 could actually be between 6.72 and 7.28 if measured by a reference method. A reported value of 9.0 could actual ly be between 8.73 and 9.27. Ref: http://www.ngsp.org/CAPdata.asp Ordering Provid er: BOYD GROSS Report Released Date/Time: Jun 04, 2022 02:50 PM Reporting Lab: [facility] [place] [facility] [address] [facility] [address] Performing Lab: [facility] [place] [facility] [address] [facility] [address] HEMOGLOBIN A1C 5.4 4.0-5.6 Jun 11, 2022 10:02 VA [facility] LIVER FUNCTION Specimen Typ e: SERUM AM [place] [facility] No comment enter ed. Ordering Provid er: BOYD GROSS Report Released Date/Time: Jun 04, 2022 02:50 PM Reporting Lab: [facility] [place] [facility] [address] [facility] [address] Performing Lab: [facility]ASTTRN [place] [facility] [address] [facility] [address] PROTEIN,TOTAL 6.9 6.0-8.3 ALBUMIN 3.8 3.5-5.0 ALKALINE PHOSPHATASE 97 40-150 AST 24 5-34 ALT 17 <6-55 BILIRUBIN, TOTAL 0.9 0.2-1.2 Jun 11, 2022 OR CNTRL WSTRN BASIC METABOLIC Specimen Type: SERUM 10:02 AM [place] [facility] PANEL (fasting) No comment enter ed. Ordering Provid er: BOYD GROSS Report Released Date/Time: Jun 04, 2022 02:50 PM Reporting Lab: [facility] [place] [facility] [address] [facility] [address] Performing Lab: [facility] [place] [facility] [address] [facility] [address] UREA NITROGEN 12 7-25 GLUCOSE 108 H 65-100 SODIUM 138 135-145 POTASSIUM 4.2 3.5-5.0 CHLORIDE 107 100-110 CO2 22 20-30 CREATININE, Serum 0.80 0.50-1.40 eGFR(CKD-EPI 2020) >90 >60 Jun 11, 2022 OR [facility] LIPID PANEL FASTING Specimen Ty pe: SERUM 10:02 AM [facility] No comment enter ed. Ordering Provid er: BOYD GROSS Report Released Date/Time: Jun 04, 2022 02:50 PM Reporting Lab: [facility] [address] [facility] [address] Performing Lab: [facility] [address] [facility] [address] CHOLESTEROL 113 <7-199 TRIGLYCERIDE 150 0-150 LDL calculated 37 0-129 CHOL/HDL 2.5 HDL CHOLESTEROL 46 40-60 Jun 11, 2022 10:02 [facility] CBC AND DIFF Specimen Typ e: BLOOD AM [facility] (AUTO) No comment enter ed. Ordering Provid er: BOYD GROSS Report Released Date/Time: Jun 04, 2022 02:50 PM Reporting Lab: [facility]ITALRBAP[facility]ASTTRN [place] [facility] [address] [facility] [facility] [address] Performing Lab: [facility]ITALRBAP[facility] EASTTRN [facility] [address] [facility] [address] WBC 6.46 4.50-11.00 RBC 4.54 4.23-5.66 HGB 14.1 12.8-17 HCT 40.7 39.2-50.4 MCV 89.6 82-99 MCHC 34.6 30.8-35.1 PLT 227 140-360 RDW-CV 12.3 12.0-16.0 Mason, Abs 0.51 0.30-1.10 MCH 31.1 26.2-32.6 Neut % 66.4 Lymph % 17.2 Mason % 7.9 Eos % 7.1 Baso % 1.1 Neut, Abs 4.29 2.20-7.60 Lymph, Abs 1.11 1.00-3.20 Eos, Abs 0.46 H 0.03-0.44 Baso, Abs 0.07 0.01-0.13 Immature Gran % 0.3 Immature Gran, Abs 0.02 0.00-0.06 Jun 11, 2022 10:02 AM [facility] PT & INR ([place]) Speci men Type: PLASMA No comment enter ed. Ordering Provid er: CIRILO HUNTER Report Released Date/Time: May 20, 2022 12:37 PM Reporting Lab: OR CNTRL WSTRN [place] [facility] [address] [facility] [address] Performing Lab: OR CNTRL WSTRN [place] [facility] [address] [facility] [address] INR 2.5 PROTIME 28.4 H 10.0-13.1 May 20, 2022 11:10 [facility] PT & INR ([place]) Spec imen Type: PLASMA AM (631GE) No comment enter ed. Ordering Provid er: BUCK LACKEY Report Released Date/Time: May 05, 2022 01:53 PM Reporting Lab: [place] CN[facility]L [facility] [place] [facility] [address] [facility] [address] Performing Lab: OR CN[facility]L W[facility] [place] [facility] [address] [facility] [address] INR 2.7 PROTIME 30.7 H 10.0-13.1 May 05, 2022 [facility] PT & INR ([place]) Specimen Ty pe: PLASMA 11:55 AM [facility] No comment enter ed. Ordering Provid er: SERA MEEKS Report Released Date/Time: May 05, 2022 11:54 AM Reporting Lab: [place] CN[facility]L [facility] [place] [facility] [address] [facility] [address] Performing Lab: [facility] CNTRL W[facility] [place] [facility] [address] [facility] [facility] [address] INR 3.0 PROTIME 33.6 H 10.0-13.1 Apr 28, 2022 [facility] PT & INR ([place]OU[place]) Specimen Ty pe: PLASMA 01:14 PM [facility] No comment enter ed. Ordering Provid er: SERA MEEKS Report Released Date/Time: Mar 13, 2022 03:43 PM Reporting Lab: [facility]L [facility] [place] [facility] [address] [facility] [facility] [address] Performing Lab: [facility] CN[facility]L W[facility] [place] [facility] [address] [facility] [facility] [address] INR 4.3 PROTIME 47.6 H 10.0-13.1 Social [...] 30, 2022 01:00 PM VA-TOBACCO FORMER USER OR CNTRL WSTRN [place] [facility] Tobacco Use History This section includes a history of the smoking, or tobacco- related health factors, that were collected on or before the date of the Encounter. The data comes from the [place] facility where the Encounter took place. Date/Time Smoking Status/Tobacco Comment Facility Use Apr 30, 2022 01:00 VA-TOBACCO QUIT 15 YRS OR VA CN[facility] PM MORE [place] [facility] Mar 20, 2021 01:00 VA-TOBACCO FORMER USER VA CNT RL [facility]STRN PM [place] [facility] Mar 20, 2021 01:00 VA-TOBACCO QUIT 15 YRS OR VA CN[facility] PM MORE [place] [facility] January 17, 2020 11:33 VA-TOBACCO FORMER USER VA [facility] RL [facility] AM [place] [facility] January 17, 2020 11:33 VA-TOBACCO QUIT 15 YRS OR VA CN[facility] AM MORE [place] [facility] Nov 23, 2018 01:22 VA-TOBACCO FORMER USER VA [facility] RL [facility] PM [place] [facility] Nov 23, 2018 01:22 VA-TOBACCO QUIT 15 YRS OR VA [facility] PM MORE [place] [facility] January 18, 2018 12:53 QUIT TOBACCO USE 1-7 VA CNTRL WSTRN PM YEARS AGO PT STATES HE STOPP 4 YR AGO [place] [facility] Dec 09, 2016 01:07 QUIT TOBACCO USE > 7 VA CN[facility] PM YEARS AGO [place] [facility] Nov 11, 2015 01:13 QUIT TOBACCO [...] VA CNTRL [facility] PM YEARS AGO [place] [facility] Encounter Notes: All associated encounter notes This section contains the clinical notes associated to the Encounter. Date/Time Encounter Note(s) Provider Source May 20, 2022 12:00 AM NONVA CONSULT: [facility] LOCAL TITLE: COMMUNITY CARE-CONSULT RESULT NOTE [facility] STANDARD TITLE: NONVA CONSULT DATE OF NOTE: MAY 20, 2022 ENTRY DATE: JUL 07@13:49:39 AUTHOR: ANTONETTE GALDAMEZ EXP COSIGNER: URGENCY: STATUS: COMPLETED VistA Imaging - Scanned Document SCANNED DOCUMENT SIGNATURE NOT REQUIRED Electronically Filed: 07/07/2022 by: ANTONETTE GALDAMEZ May 20, 2022 12:00 AM NONVA CONSULT: [facility] LOCAL TITLE: COMMUNITY CARE-CONSULT RESULT NOTE [facility] STANDARD TITLE: NONVA CONSULT DATE OF NOTE: MAY 20, 2022 ENTRY DATE: MAY 29@13:31:23 AUTHOR: IWONA LOPEZ EXP COSIGNER: URGENCY: STATUS: COMPLETED VistA Imaging - Scanned Document SCANNED DOCUMENT SIGNATURE NOT REQUIRED Electronically Filed: 05/29/2022 by: IWONA LOPEZ
--- OUTSIDE RECORDS SUMMARY | 2022-11-03 05:45 | XMS_ITS | Encounter Summary ---
:1945 Author Organization [facility] rs Address [address] [place] [id number] Support Name Relationship Address Phone EJ SCHULTE Unavailable [address] [place] [address] EJ SCHULTE Unavailable [address] [place] [address] Insurance Providers: All historical and current Section [...] Name to Policy Number Spann WILVER MESSERT [facility] Aug 23, [id number] [phone] POLY NIELSON,J PATIENT ION 2015 7 3 JUSTIN GEHA FEHB PREFERRED [facility] Aug 23, [id number] [phone] Bertha RICHARDSON PATIENT PROVIDER AL 2012 ALTH 7 136 JUSTIN ORGANIZAT GOV ION (PPO) GEHA FEHB PREFERRED GEHA Aug 23, [id number] [phone] AKUA LIZETT,J PATIENT PROVIDER DAVID 2012 2 7 136 JUSTIN ORGANIZAT CTION ION (PPO) DENT MEDICARE MEDICARE PART Sep 23, PART B [id number] Bertha FENG PATIENT (WNR) (M) B 2010 [id number] JUSTIN MEDICARE MEDICARE PART Sep 23, PART A [id number] Bertha FENG PATIENT (WNR) (M) A 2010 [id number] 2 JUSTIN Selected Encounter This section includes the information on record at [facility] for the Encounter. Date/Time Encounter Type Encounter Description Reason Provider Source May 29, 2022 12:00 Outpatient Encounter EVENT (HISTORICAL) AM IHE Encounter Template Text not used by [facility] Plan of Treatment: Future Appointments (+ 6 months) and Future Tests (+/- 45 days) The Plan of Treatment section includes future care activities for the [facility] This section includes future appointments and future orders which are active, pending orscheduled.Future Appointments This section includes appointments that were scheduled to occur 6 months from the date of the Encounter, up to a maximum of 20 appointments. The data comes from all [facility]. Appointment Date/Time Appointment Type Appointment Facili ty Name Jun 25, 2022 08:00 AM AMBULATORY MEDICINE [facility] [place] [facility] Jun 25, 2022 01:00 PM AMBULATORY MEDICINE [facility] [place] [facility] Jul 30, 2022 01:30 PM AMBULATORY - PSYCHIATRY [facility] [place] [facility] Aug 07, 2022 02:00 PM AMBULATORY MEDICINE [facility] [place] [facility] Nov 02, 2022 12:10 PM [facility] [place] [facility] Nov 12, 2022 12:[address] [facility] MEDICINE [facility] [place] [facility] Active, Pending, and Scheduled Orders This section includes a listing of several types of active, pending, and scheduled orders, including clinic medications orders, diagnostic test orders, procedure orders and consult orders; where the start date of the order is 45 days before the date of the Encounter or 45 days after the date of the Encounter. The data comes from all [facility]. Test Date/Time Test Type Test Details Facility Name Jun 24, 2022 08:49 AM Consult Order [facility] SPECIALTY Cons [place] [facility] [facility] Jul 06, 2022 05:16 PM [facility] [place] [facility] [employer] [facility] [facility] Lab Results: +/- 30 days of the encounter This section includes the Chemistry and Hematology Lab Results on record with [facility] for the patient. Radiology Reports and Pathology Reports are provided separately, in subsequent sections.Lab Results This section contains the Chemistry/Hematology Results that were resulted 30 days before or 30 daysafter the date of the Encounter. Date/Time Source Result Type Result - Unit Interpretation Reference Range Comment Jun 11, 2022 [facility] LIPID PANEL FASTING Specimen Ty pe: SERUM 10:02 AM [place] [facility] No comment enter ed. Ordering Provid er: BOYD GROSS Report Released Date/Time: Jun 04, 2022 02:50 PM Reporting Lab: [facility] [place] [facility] [address] [facility] [address] Performing Lab: [facility] [place] [facility] [address] [facility] [address] CHOLESTEROL 113 <7-199 TRIGLYCERIDE 150 0-150 LDL calculated 37 0-129 CHOL/HDL 2.5 HDL CHOLESTEROL 46 40-60 Jun 11, 2022 [facility] HEMOGLOBIN A1C Specimen Type: BLOOD [...] Jun 04, 2022 02:50 PM Reporting [facility] [place] [facility] [address] [facility] [address] Performing Lab: [facility] [place] [facility] [address] [facility] [address] HEMOGLOBIN A1C 5.4 4.0-5.6 Jun 11, 2022 [facility] BASIC METABOLIC Specimen Type: SERUM 10:02 AM [place] [facility] PANEL (fasting) No comment enter ed. Ordering Provid er: BOYD GROSS Report Released Date/Time: Jun 04, 2022 02:50 PM Reporting Lab: [facility] [place] [facility] [address] [facility] [address] Performing Lab: [facility] [place] [facility] [address] [facility] [address] UREA NITROGEN 12 7-25 GLUCOSE 108 H 65-100 SODIUM 138 135-145 POTASSIUM 4.2 3.5-5.0 CHLORIDE 107 100-110 CO2 22 20-30 CREATININE, Serum 0.80 0.50-1.40 eGFR(CKD-EPI 2020) >90 >60 Jun 11, 2022 10:02 [facility] LIVER FUNCTION Specimen Typ e: SERUM AM [place] [facility] No comment enter ed. Ordering Provid er: BOYD GROSS Report Released Date/Time: Jun 04, 2022 02:50 PM Reporting Lab: [facility] [place] [facility] [address] [facility] [address] Performing Lab: [facility] [place] [facility] [address] [facility] [address] PROTEIN,TOTAL 6.9 6.0-8.3 ALBUMIN 3.8 3.5-5.0 ALKALINE PHOSPHATASE 97 40-150 AST 24 5-34 ALT 17 <6-55 BILIRUBIN, TOTAL 0.9 0.2-1.2 Jun 11, 2022 10:02 [facility] CBC AND DIFF Specimen Typ e: BLOOD AM [place] [facility] (AUTO) No comment enter ed. Ordering Provid er: BOYD GROSS Report Released Date/Time: Jun 04, 2022 02:50 PM Reporting Lab: [facility] [place] [facility] [address] [facility] [address] Performing Lab: [facility] [place] [facility] [address] [facility] [address] WBC 6.46 4.50-11.00 RBC 4.54 4.23-5.66 HGB 14.1 12.8-17 HCT 40.7 39.2-50.4 MCV 89.6 82-99 MCHC 34.6 30.8-35.1 PLT 227 140-360 RDW-CV 12.3 12.0-16.0 [place], Abs 0.51 0.30-1.10 MCH 31.1 26.2-32.6 Neut % 66.4 Lymph % 17.2 [place] % 7.9 Eos % 7.1 Baso % 1.1 Neut, Abs 4.29 2.20-7.60 Lymph, Abs 1.11 1.00-3.20 Eos, Abs 0.46 H 0.03-0.44 Baso, Abs 0.07 0.01-0.13 Immature Gran % 0.3 Immature Gran, Abs 0.02 0.00-0.06 Jun 11, 2022 10:02 AM [facility] PT & INR ([place]) Speci men Type: PLASMA No comment enter ed. Ordering Provid er: CIRILO HUNTER Report Released Date/Time: May 20, 2022 12:37 PM Reporting Lab: [facility] [place] [address] [address] Performing Lab: [facility] [place] [address] [address] INR 2.5 PROTIME 28.4 H 10.0-13.1 May 20, 2022 11:10 [facility] PT & INR ([place]) Spec imen Type: PLASMA AM (631GE) No comment enter ed. Ordering Provid er: BUCK LACKEY Report Released Date/Time: May 05, 2022 01:53 PM Reporting Lab: [facility] [place] [facility] [address] [facility] [address] Performing Lab: [facility] [place] [facility] [address] [facility] [address] INR 2.7 PROTIME 30.7 H 10.0-13.1 May 05, 2022 [facility] PT & INR ([place]) Specimen Ty pe: [facility] 11:55 [facility] No comment enter ed. Ordering Provid er: SERA MEEKS Report Released Date/Time: May 05, 2022 11:54 AM Reporting Lab: [facility] [place] [facility] [address] [facility] [address] Performing Lab: [facility] [place] [address] [address] INR 3.0 PROTIME 33.6 H 10.0-13.1 Immunizations: All administered on the encounter date This section contains immunizations associated to the Encounter. Immunization Series Date Issued Reaction Comments INFLUENZA, UNSPECIFIED FORMULATION May 29, 2022 Social History: Smoking Status (Most current) and Tobacco Use (All prior to encounter date) This section includes the most current, and the historical, smoking and tobacco-related health factors from the [facility] facility where the Encounter took place.Current Smoking Status This section includes the most current smoking, or tobacco-related health factor, from the [facility] facility where the Encounter took place. Date/Time Current Smoking Status Comment Facility Apr 30, 2022 01:00 PM VA[facility]ACCO [facility] Tobacco Use History This section includes a history of the smoking, or tobacco- related health factors, that were collected on or before the date of the Encounter. The data comes from the [facility] facility where the Encounter took place. Date/Time Smoking Status/Tobacco Comment Facility Use Apr 30, 2022 01:00 VA-TOBACCO QUIT 15 YRS OR [facility] PM MORE [place] [facility] Mar 20, 2021 01:00 VA-TOBACCO FORMER USER [facility] [place] [facility] Mar 20, 2021 01:00 VA-TOBACCO QUIT 15 YRS OR [facility] PM [facility] [place] [facility] January 17, 2020 11:33 VA-TOBACCO FORMER USER [facility] [place] [facility] January 17, 2020 11:33 VA-TOBACCO QUIT 15 YRS OR [facility] AM [facility] [place] [facility] Nov 23, 2018 01:22 VA-TOBACCO FORMER USER [facility] PM [place] [facility] Nov 23, 2018 01:22 VA-TOBACCO QUIT 15 YRS OR [facility] PM [facility] [place] [facility] January 18, 2018 12:53 QUIT TOBACCO USE 1-7 [facility] PM YEARS AGO PT STATES HE STOPP 4 YR AGO [place] [facility] Dec 09, 2016 01:07 QUIT TOBACCO USE > 7 [facility] PM YEARS AGO [place] [facility] Nov 11, 2015 01:13 QUIT TOBACCO USE > 7 [facility] PM YEARS AGO [place] [facility] Nov 19, 2004 03:17 HISTORY OF SMOKING [facility] PM quit 30 yrs ago [place] [facility] Aug 10, 2003 01:03 HISTORY OF SMOKING [facility] [place] [facility] Apr 12, 2002 02:36 QUIT TOBACCO USE > 7 [facility] PM YEARS AGO [facility]
--- OUTSIDE RECORDS SUMMARY | 2022-11-03 05:45 | XMS_ITS | Encounter Summary ---
:1945 Author Organization [facility] rs Address [address] [place] [address] Support Name Relationship Address Phone EJ SCHULTE Unavailable [address] [place] [address] EJ SCHULTE Unavailable [address] [place] [address] Insurance Providers: All historical and current Section [...] Name to Policy Number Spann [facility] Aug 23, [id number] [phone] POLY ON,J PATIENT ION 2015 7 3 JUSTIN GEHA FEHB PREFERRED [facility] Aug 23, [id number] [phone] Bertha RICHARDSON PATIENT PROVIDER MICHELA 2012 ALTH 7 136 JUSTIN ORGANIZAT GOV ION (PPO) GEHA FEHB PREFERRED GEHA Aug 23, [id number] [phone] AKUA LIZETT,J PATIENT PROVIDER DAVID 2012 2 7 136 JUSTIN ORGANIZAT CTION ION (PPO) DENT MEDICARE MEDICARE PART Sep 23, PART A [id number] Bertha FENG PATIENT (WNR) (M) A 2010 [id number] 2 JUSTIN MEDICARE MEDICARE PART Sep 23, PART B [id number] Bertha FENG PATIENT (WNR) (M) B 2010 [id number] 2 JUSTIN Selected Encounter This section includes the information on record at [place] for the Encounter. Date/Time Encounter Type Encounter Reason Provider Source Description Jun 25, 2022 OFFICE O/P EST PRIMARY ICD-10-CM BOYD GROSS 01:00 PM MOD 30-39 MIN CARE/MEDICINE F43.12 JAWED Post-traumatic stress disorder, chronic with Provider Comments: Chronic post-traumatic stress disorder following combat ([facility] [id number]) IHE Encounter Template Text not used by [facility] Assessments - Encounter Diagnoses This section includes the primary and secondary diagnoses documented for the Encounter. 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 Jun 25, 2022 SECONDARY Chronic systolic RADHA GROSS CNTRL W STRN 01:31 PM (congestive) heart [facility] failure Jun 25, 2022 SECONDARY Essential AHMEDRADHA [facility] 01:31 PM (primary) [facility] hypertension Jun 25, 2022 SECONDARY Gastro-esophageal RADHA GROSS CN[facility] WSTRN 01:31 PM reflux disease [facility] without esophagitis Jun 25, 2022 SECONDARY Hyperlipidemia, RADHA GROSS [facility] TRN 01:31 PM unspecified [facility] Jun 25, 2022 SECONDARY Impaired fasting RADHA GROSS CNTRL W STRN 01:31 PM glucose [facility] Jun 25, 2022 SECONDARY Pain in left RADHA GROSS [facility] 01:31 PM shoulder [facility] Jun 25, 2022 SECONDARY Presence of AHMEDRADHA [facility] 01:31 PM cardiac pacemaker [facility] Jun 25, 2022 SECONDARY Presence of other AHMED,RADHA [facility] 01:31 PM heart-valve [facility] [place] [facility] replacement Plan of Treatment: Future Appointments (+ 6 months) and Future Tests (+/- 45 days) The Plan of Treatment section includes future care activities for the patient from all [place] [facility]. This section includes future appointments and future orders which are active, pending orscheduled.Future Appointments This section includes appointments that were scheduled to occur 6 months from the date of the Encounter, up to a maximum of 20 appointments. The data comes from all [facility] facilities. Appointment Date/Time Appointment Type Appointment Facili ty Name Jul 30, 2022 01:30 PM [facility] Aug 07, 2022 02:00 PM [facility] Nov 02, 2022 12:10 PM [facility] Nov 12, 2022 12:45 PM [facility] December 23, 2022 01:30 PM [facility] Active, Pending, and Scheduled Orders This section includes a listing of several types of active, pending, and scheduled orders, including clinic medications orders, diagnostic test orders, procedure orders and consult orders; where the start date of the order is 45 days before the date of the Encounter or 45 days after the date of the Encounter. The data comes from all [facility]. Test Date/Time Test Type Test Details Facility Name Jun 24, 2022 08:49 AM Consult Order [facility] NTRL [facility] Workforce Management Manager's Choice Jul 06, 2022 05:16 PM Consult Order [facility] NTRL WSN GENERAL Cons [facility] Workforce Management Manager's Choice Lab Results: +/- 30 days of [...] Range Comment Jul 08, 2022 10:56 AM [place] [facility] ([facility]OU[facility]ADIN) Speci men Type: PLASMA No comment enter ed. Ordering Provid er: SUDHEER KEENAN Report Released Date/Time: Jun 11, 2022 04:07 PM Reporting Lab: [place] [facility] [place] [facility] [address] [address] Performing Lab: [place] [facility] [place] [facility] [address] [address] INR 2.7 PROTIME 31.6 H 10.0-13.1 Jun 11, 2022 [facility] LIPID PANEL FASTING Specimen Ty pe: SERUM 10:02 AM [facility] No comment enter ed. Ordering Provid er: BOYD GROSS Report Released Date/Time: Jun 04, 2022 02:50 PM Reporting Lab: [place] [facility] [place] [facility] [address] [address] Performing Lab: [facility] [place] [facility] [address] [facility] [address] CHOLESTEROL 113 <7-199 TRIGLYCERIDE 150 0-150 LDL calculated 37 0-129 CHOL/HDL 2.5 HDL CHOLESTEROL 46 40-60 Jun 11, 2022 [place] [facility] HEMOGLOBIN A1C Specimen Type: BLOOD [...] Jun 04, 2022 02:50 PM Reporting Lab: [facility] [place] [facility] [address] [address] Performing Lab: [place] [facility] [place] [facility] [address] [facility] [address] HEMOGLOBIN A1C 5.4 4.0-5.6 Jun 11, 2022 [facility] BASIC METABOLIC Specimen Type: SERUM 10:02 AM [facility] PANEL (fasting) No comment enter ed. Ordering Provid er: BOYD GROSS Report Released Date/Time: Jun 04, 2022 02:50 PM Reporting Lab: [facility] [address] [address] Performing Lab: [facility] [address] [address] UREA NITROGEN 12 7-25 GLUCOSE 108 H 65-100 SODIUM 138 135-145 POTASSIUM 4.2 3.5-5.0 CHLORIDE 107 100-110 CO2 22 20-30 CREATININE, Serum 0.80 0.50-1.40 eGFR(CKD-EPI 2020) >90 >60 Jun 11, 2022 10:02 [facility] LIVER FUNCTION Specimen Typ e: SERUM AM [place] [facility] No comment enter ed. Ordering Provid er: BOYD GROSS Report Released Date/Time: Jun 04, 2022 02:50 PM Reporting Lab: [place] [facility] [place] [facility] [address] [facility] [address] Performing Lab: [place] [facility] [place] [facility] [address] [address] PROTEIN,TOTAL 6.9 6.0-8.3 ALBUMIN 3.8 3.5-5.0 ALKALINE PHOSPHATASE 97 40-150 AST 24 5-34 ALT 17 <6-55 BILIRUBIN, TOTAL 0.9 0.2-1.2 Jun 11, 2022 10:02 [facility] CBC AND DIFF Specimen Typ e: BLOOD AM [facility] (AUTO) No comment enter ed. Ordering Provid er: BOYD GROSS Report Released Date/Time: Jun 04, 2022 02:50 PM Reporting Lab: [facility] [address] [address] Performing Lab: [place] [facility] [place] [facility] [address] [address] WBC 6.46 4.50-11.00 RBC 4.54 4.23-5.66 HGB 14.1 12.8-17 HCT 40.7 39.2-50.4 MCV 89.6 82-99 MCHC 34.6 30.8-35.1 PLT 227 140-360 RDW-CV 12.3 12.0-16.0 [place], Abs 0.51 0.30-1.10 MCH 31.1 26.2-32.6 Neut % 66.4 Lymph % 17.2 [place] % 7.9 Eos % 7.1 Baso % 1.1 Neut, Abs 4.29 2.20-7.60 Lymph, Abs 1.11 1.00-3.20 Eos, Abs 0.46 H 0.03-0.44 Baso, Abs 0.07 0.01-0.13 Immature Gran % 0.3 Immature Gran, Abs 0.02 0.00-0.06 Jun 11, 2022 10:02 AM [place] [facility] ([facility]) Speci men Type: PLASMA No comment enter ed. Ordering Provid er: CIRILO HUNTER Report Released Date/Time: May 20, 2022 12:37 PM Reporting Lab: [address] [address] Performing Lab: [address] [address] INR 2.5 PROTIME 28.4 H 10.0-13.1 Vital Signs: All taken on the encounter date This section contains inpatient and outpatient Vital Signs collected on the date of the Encounter. Date/Time Temperature Pulse Blood Respiratory SP02 Pain Height Weight Tk dy Source Pressure Rate Mass Index Jun 25, 97.9 F 67 140/70 16 /min 98 % 4 217.8 30 [place] 2021 12:47 /min mm[Hg] lb CNTRL PM [facility] Social History: Smoking Status (Most current) and [...] Comment Facility Apr 30, 2022 01:00 PM [place]BAC[place] FORMER USER [facility] Tobacco Use History This section includes a history of the smoking, or tobacco- related health factors, that were collected on or before the date of the Encounter. The data comes from the [place] facility where the Encounter took place. Date/Time Smoking Status/Tobacco Comment Facility Use Apr 30, 2022 01:00 VA-TOBACCO QUIT 15 YRS OR [facility] PM MORE [place] [facility] Mar 20, 2021 01:00 VA-TOBACCO FORMER USER [facility] PM [place] [facility] Mar 20, 2021 01:00 VA-TOBACCO QUIT 15 YRS OR [facility] PM MORE [place] [facility] January 17, 2020 11:33 VA-TOBACCO FORMER USER [facility] AM [place] [facility] January 17, 2020 11:33 VA-TOBACCO QUIT 15 YRS OR [facility] AM MORE [place] [facility] Nov 23, 2018 01:22 VA-TOBACCO FORMER USER [facility] PM [place] [facility] Nov 23, 2018 01:22 VA-TOBACCO QUIT 15 YRS OR [facility] PM MORE [place] [facility] January 18, 2018 12:53 QUIT TOBACCO USE 1-7 [facility] PM YEARS AGO PT STATES HE STOPP 4 YR AGO [place] [facility] Dec 09, 2016 01:07 QUIT TOBACCO USE > 7 [facility] PM YEARS AGO [place] [facility] Nov 11, 2015 01:13 QUIT TOBACCO USE > 7 [facility] PM YEARS AGO [place] [facility] Nov 19, 2004 03:17 HISTORY OF SMOKING [facility] PM quit 30 yrs ago [place] [facility] Aug 10, 2003 01:03 HISTORY OF SMOKING [facility] PM [place] [facility] Apr 12, 2002 02:36 QUIT TOBACCO USE > 7 [facility] Encounter Notes: All associated encounter notes This section contains the clinical notes associated to the Encounter. Date/Time Encounter Note(s) Provider Source Jun 25, 2022 01:20 PHYSICIAN NOTE: BOYD GROSS [place] [facility] [place] PM LOCAL TITLE: MD [facility] STANDARD TITLE: PHYSICIAN NOTE DATE OF NOTE: JUN 25, 2022@13:20 ENTRY DATE: JUN 25, 2022@13:20:05 AUTHOR: BOYD GROSS EXP COSIGNER: URGENCY: STATUS: COMPLETED NOTE Has ADDENDA Patient Name: KAMLA SCHULTE VITALS: Patient temperature: 97.9 F [36.6 C] (06/25/2022 12:47) Blood pressure: 140/70 (06/25/2022 12:47) Patient height: 72 in [182.9 cm] (10/06/2018 14: 30) Patient weight: 217.8 lb [98.79 kg] (06/25/2022 12:47) Patient BMI: BMI: 29.6 Patient pulse: 67 (06/25/2022 12:47) Patient respiration: 16 (06/25/2022 12:47) Patient Pulse Oximetry: 98% (06/25/2022 12:47) Pain Ratin (06/25/2022 12:47) Active VA Medications: Active Outpatient Medicat ions [...] BY MOUTH ONCE ACTIVE (S) DAILY 5) LANSOPRAZOLE (PREVACID) 30MG CAP *BRAND* TAKE ONE ACTIVE CAPSULE BY MOUTH DAILY 6) LATANOPROST 0.005% OPH SOLN INSTILL 1 DROP IN TO EACH ACTIVE EYE AT BEDTIME TO REDUCE PRESSURE IN THE EYE 7) LORATADINE 10MG TAB TAKE ONE TABLET BY MOUTH ONCE ACTIVE DAILY FOR ALLERGY 8) TAMSULOSIN HCL 0.4MG CAP TAKE ONE CAPSULE BY MOUTH ACTIVE (S) DAILY 9) ZOLPIDEM TARTRATE 10MG TAB TAKE ONE TABLET BY MOUTH ACTIVE AT BEDTIME NEEDED FOR SLEEP Pending Outpatient Medications Status 1) VALSARTAN 80MG TAB TAKE ONE TABLET BY MOUTH O NCE PENDING DAILY Active Non-VA Medications Status 1) Non-VA COENZYME Q10 CAP/TAB ONE TABLET BY TORY TH ONCE ACTIVE DAILY NEEDED 11 Total Medications Remote Medications: No Active Remote Medications for this patient HPI: 76-year-old came today for a routine 6-jonathan h follow-up appointment he is being followed in the community by cardiology he is also being followed by Coumadin clinic. 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 Hypercholesterolemia on Praluent injecti on every 2 weeks his lipid profile was in excellent range denies any adverse effect. Patient also has history of pain in his left samira ulder patient has surgery 2 years ago for some bony spurs removed but he con tinued to have pain in his shoulder patient has an appointment with orthope dic who did the surgery. History of aortic valve replacement with [place] valve in 1992 on lifetime anticoagulation with Coumadin On examination: patient is a lert and oriented X3 vitals are stable, He is in no apparent distress. CVS: regular rate and rhythm Lungs: clear to auscultation ABD: Benign EXT: no edema. 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 Hypertension blood pressure slightly on the h igher side his valsartan was increased recently. 3. Ischemic heart disease/CHF patient is being f ollowed by cardiology denies any significant weight gain no change in his sym ptoms. 4. History of prosthetic aortic valve patient is on Coumadin denies any bleeding issues. 5. Obstructive sleep apnea patient has been usin g CPAP machine denies any problem. 6. Hypercholesterolemia under excellent control. 7. Impaired fasting glucose his recent hemoglobi n A1c is 5.4 Follow-up in 6 months Sexual Orientation: The patient thinks of their sexual orientation as: Straight or Heterosexual Medication Reconciliation: Outpatient: Has the patient been taking medications as docu mented in the EMLR? YES: The patient has been taking medications as documented in the EMLR. Essential Medication List for Review used to co mplete this medication reconciliation. INCLUDED IN THIS LIST: Alphabetical list of act pierre outpatient prescriptions dispensed from this [facility] (local) an d dispensed from another VA or [facility] facility (remote) as well as inpatien [...] whether with a VA or non-VA provider. /ata GROSS MD STAFF PHYSICIAN Signed: 06/25/2022 13:31 10/14/2022 ADDENDUM STATUS: COMPLETED Please send PT/INR order be sent to the [facility] lab for INR 10/15/22 and PRN with instructions to send result to [facility] at phone: [phone] ext [phone] or fax: . OFFICE INFORMATION [address] [place] [address] Office /ata GROSS MD STAFF PHYSICIAN Signed: 10/14/2022 08:55 Receipt Acknowledged By: * AWAITING SIGNATURE * ANTONETTE LINDSAY * AWAITING SIGNATURE * CHRIS DYSON Jun 25, 2022 12:56 PREVENTIVE MEDICINE NURSING NOTE: RYAN ROBIN I [place] [facility] PM LOCAL TITLE: CLINICAL REMINDERS/NURSING [place] [facility] STANDARD TITLE: PREVENTIVE MEDICINE NURSING NOTE DATE OF NOTE: JUN 25, 2022@12:56 ENTRY DATE: JUN 25, 2022@12:56:36 AUTHOR: HUNG ROBIN I EXP COSIGNER: URGENCY: STATUS: COMPLETED Info Only: [facility] Video Connect Capable: VVC Modality: [facility] Video Connect (VVC): is using their OWN technology to connect for videoconferencing. Use [employer] SKIP LOADER (VCM) to create an elias il link that is sent to both provider and Computer with webcam/microphone Falls & Incontinence Screen: Falls Screen: During the past 12 months, did the patient repo rt any falls? 4. No falls within the past year. Incontinence Screen: During the past 12 months, has the patient has any characteristics of incontinence (ability, voiding, leakage, etc.)? No incontinence. Influenza Immunization: The patient has received the seasonal influenza vaccine for the current season at another location. Date: May 29, 2022 Location: Outside Healthcare Provider /yeimy/ HUNG ROBIN RN REGISTERED NURSE Signed: 06/25/2022 12:59
--- OUTSIDE RECORDS SUMMARY | 2022-11-03 05:45 | XMS_ITS | Encounter Summary ---
:1945 Author Organization [facility] rs Address [address] [place] [address] Support Name Relationship Address Phone EJ SCHULTE Unavailable [address] [place] [address] EJ SCHULTE Unavailable [address] [place] [address] Insurance Providers: All historical and current Section [...] Name to Policy Number Spann WILVER MESSERT [facility] Aug 23, [id number] [phone] POLY ON,J PATIENT ION 2015 7 3 JUSTIN GEHA FEHB PREFERRED [facility] Aug 23, [id number] [phone] Bertha RICHARDSON PATIENT PROVIDER AL 2012 ALTH 7 136 JUSTIN ORGANIZAT GOV ION (PPO) GEHA FEHB PREFERRED GEHA Aug 23, [id number] [phone] AKUA RDON,J PATIENT PROVIDER DAVID 2012 2 7 136 JUSTIN ORGANIZAT CTION ION (PPO) DENT MEDICARE MEDICARE PART Sep 23, PART A [id number] Bertha FENG PATIENT (WNR) (M) A [id number] 2 JUSTIN MEDICARE MEDICARE PART Sep 23, PART B [id number] Bertha FENG PATIENT (WNR) (M) B 2010 [id number] JUSTIN Selected Encounter This section includes the information on record at [place] for the Encounter. Date/Time Encounter Type Encounter Description Reason Provider Source January 13, 2022 02:00 Outpatient Encounter COMMUNITY CARE PM CONSULT IHE Encounter Template Text not used by [place] Plan of Treatment: Future Appointments (+ 6 months) and Future Tests (+/- 45 days) The Plan of Treatment section includes future care activities for the patient from all [place] treatmentfacilities. This section includes future appointments and future orders which are active, pending orscheduled.Future Appointments This section includes appointments that were scheduled to occur 6 months from the date of the Encounter, up to a maximum of 20 appointments. The data comes from all [place] treatment facilities. Appointment Date/Time Appointment Type Appointment Facili ty Name Feb 16, 2022 01:00 PM AMBULATORY [place] [facility] [place] [facility] Apr 07, 2022 01:00 PM AM[place]UL[place] [facility] [place] [facility] Apr 07, 2022 01:30 PM [place] [facility] [place] [facility] Apr 15, 2022 02:30 PM [place] [facility] [place] [facility] Apr 30, 2022 01:00 PM AMBULATORY [place] [facility] [place] [facility] Jun 25, 2022 08:00 AM AM[place]UL[place]ORY [place] [facility] [place] [facility] Jun 25, 2022 01:00 PM [facility] [place] [facility] Lab Results: +/- 30 days of the encounter This section includes the Chemistry and Hematology Lab Results on record with [place] for the patient. Radiology Reports and Pathology Reports are provided separately, in subsequent sections.Lab Results This section contains the Chemistry/Hematology Results that were resulted 30 days before or 30 daysafter the date of the Encounter. Date/Time Source Result Type Result - Unit Interpretation Reference Range Comment Jan 26, 2022 [place] [facility] PT & INR ([place]) Specimen Ty pe: PLASMA 01:17 PM [facility] No comment enter ed. Ordering Provid er: SERA MEEKS Report Released Date/Time: January 02, 2022 02:14 PM Reporting Lab: [address] [address] Performing Lab: [facility] [place] [facility] [address] [facility] [address] INR 2.9 PROTIME 32.1 H 10.0-13.1 January 02, 2022 [facility] PT & INR ([place]) Specimen Ty pe: PLASMA 12:50 PM [facility] No comment enter ed. Ordering Provid er: SERA MEEKS Report Released Date/Time: Dec 19, 2021 11:58 AM Reporting Lab: [facility] [place] [facility] [address] [facility] [address] Performing Lab: [facility] [place] [address] [facility] [address] INR 2.9 PROTIME 31.9 H 10.0-13.1 Dec 19, 2021 10:38 [facility] PT & INR ([place]) Specimen Type: PLASMA AM [facility] No comment enter ed. Ordering Provid er: MARQUES CHOWDHURY Report Released Date/Time: Dec 01, 2021 05:11 PM Reporting Lab: [facility] [place] [facility] [address] [facility] [address] Performing Lab: [facility] [place] [address] [facility] [address] INR 1.9 PROTIME 21.8 H 10.0-13.1 Dec 19, 2021 [facility] LIPID PANEL FASTING Specimen Ty pe: SERUM 10:38 AM [facility] No comment enter ed. Ordering Provid er: BOYD GROSS Report Released Date/Time: Dec 05, 2021 08:08 AM Reporting Lab: [facility] [place] [address] [facility] [address] Performing Lab: [facility] [place] [facility] [address] [facility] [address] CHOLESTEROL 119 <7-199 TRIGLYCERIDE 93 0-150 LDL calculated 47 0-129 CHOL/HDL 2.2 HDL CHOLESTEROL 53 40-60 Dec 19, 2021 [facility] BASIC METABOLIC Specimen Type: SERUM 10:38 AM [facility] PANEL (fasting) No comment enter ed. Ordering Provid er: RENATOJESSEJON ELLINGTON Report Released Date/Time: Dec 05, 2021 08:08 AM Reporting [facility] [address] [facility] [address] Performing Lab[facility] [address] [facility] [address] UREA NITROGEN 13 7-25 GLUCOSE 105 H 65-100 SODIUM 140 135-145 POTASSIUM 4.7 3.5-5.0 CHLORIDE 107 100-110 CO2 21 20-30 CREATININE, Serum 0.80 0.50-1.40 eGFR(CKD-EPI 2020) >90 >60 Dec 19, 2021 10:38 [facility] LIVER FUNCTION Specimen Typ e: SERUM AM [facility] No comment enter ed. Ordering Provid er: BOYD GROSS Report Released Date/Time: Dec 05, 2021 08:08 AM Reporting Lab: [facility] [address] [facility] [address] Performing Lab: [facility] [address] [facility] [address] PROTEIN,TOTAL 6.8 6.0-8.3 ALBUMIN 3.7 3.5-5.0 ALKALINE PHOSPHATASE 101 40-150 AST 23 5-34 ALT 15 <6-55 BILIRUBIN, TOTAL 0.6 0.2-1.2 Dec 19, 2021 [facility] HEMOGLOBIN A1C PANEL Specimen T ype: BLOOD 10:38 AM [facility] Comment: Testin g performed by NGSP [...] Dec 05, 2021 08:08 AM Reporting Lab: [facility] [address] [facility] [address] Performing Lab: [facility] [address] [facility] [address] HEMOGLOBIN A1C 5.4 4.0-5.6 Dec 19, 2021 10:38 [facility] CBC AND DIFF Specimen Typ e: BLOOD AM [facility] (AUTO) No comment enter ed. Ordering Provid er: BOYD GROSS Report Released Date/Time: Dec 05, 2021 08:08 AM Reporting Lab: [facility] [address] [facility] [address] Performing Lab: [facility] [address] [facility] [address] WBC 5.51 4.50-11.00 RBC 4.35 4.23-5.66 HGB 13.1 12.8-17 HCT 39.5 39.2-50.4 MCV 90.8 82-99 MCHC 33.2 30.8-35.1 PLT 232 140-360 RDW-CV 14.2 12.0-16.0 [place], Abs 0.53 0.30-1.10 MCH 30.1 26.2-32.6 Neut % 62.4 Lymph % 20.9 [place] % 9.6 Eos % 5.4 Baso % 1.3 Neut, Abs 3.44 2.20-7.60 Lymph, Abs 1.15 1.00-3.20 Eos, Abs 0.30 0.03-0.44 Baso, Abs 0.07 0.01-0.13 Immature Gran % 0.4 Immature Gran, Abs 0.02 0.00-0.06 Social History: Smoking Status (Most current) and Tobacco Use (All prior to encounter date) This section includes the most current, and the historical, smoking and tobacco-related health factors from the [place] facility where the Encounter took place.Current Smoking Status This section includes the most current smoking, or tobacco-related health factor, from the [place] facility where the Encounter took place. Date/Time Current Smoking Status Comment Facility Mar 20, 2021 01:00 PM VA-TOBACCO FORMER USER [facility] Tobacco Use History This section includes a history of the smoking, or tobacco- related health factors, that were collected on or before the date of the Encounter. The data comes from the [place] facility where the Encounter took place. Date/Time Smoking Status/Tobacco Comment Facility Use Mar 20, 2021 01:00 VA-TOBACCO QUIT 15 YRS OR [facility] [place] [facility] January 17, 2020 11:33 VA-TOBACCO FORMER USER [facility] [place] [facility] January 17, 2020 11:33 VA-TOBACCO QUIT 15 YRS OR [facility] AM [place] [facility] Nov 23, 2018 01:22 VA-TOBACCO FORMER USER [facility] [place] [facility] Nov 23, 2018 01:22 VA-TOBACCO QUIT 15 YRS OR [facility] PM [place] [facility] January 18, 2018 12:53 QUIT TOBACCO USE 1-7 [facility] PM YEARS AGO PT STATES HE STOPP 4 YR AGO [place] [facility] Dec 09, 2016 01:07 QUIT TOBACCO USE > 7 [facility] PM YE[place] AGO [place] [facility] Nov 11, 2015 01:13 QUIT TOBACCO USE > 7 [facility] PM [place] A[place] [facility] Nov 19, 2004 03:17 HISTORY OF SMOKING [facility] yrs [facility] Aug 10, 2003 01:03 HISTORY OF SMOKING [facility] [place] [facility] Apr 12, 2002 02:36 QUIT TOBACCO USE > 7 [facility] PM YEARS AGO [facility]
--- OUTSIDE RECORDS SUMMARY | 2022-11-03 05:45 | XMS_ITS | Encounter Summary ---
:1945 Author Organization [facility] rs Address [address] [place] [address] Support Name Relationship Address Phone EJ SCHULTE Unavailable [address] [place] [address] EJ SCHULTE Unavailable [address] [place] [address] Insurance Providers: All historical and current Section [...] to Policy Number Spann WILVER MESSERT [facility] Aug 23, [id number] [phone] POLY ON,J PATIENT ION 2015 7 3 JUSTIN GEHA FEHB PREFERRED [facility] [place] [facility] Aug 23, [id number] [phone] Bertha RICHARDSON PATIENT PROVIDER AL 2012 ALTH 7 136 JUSTIN ORGANIZAT GOV ION (PPO) GEHA FEHB PREFERRED GEHA Aug 23, [id number] [phone] AKUA RDON,J PATIENT PROVIDER DAVID 2012 2 7 136 JUSTIN ORGANIZAT CTION ION (PPO) DENT MEDICARE MEDICARE PART Sep 23, PART B [id number] Bertha FENG PATIENT (WNR) (M) B [id number] 2 JUSTIN MEDICARE MEDICARE PART Sep 23, PART A [id number] Bertha FENG PATIENT (WNR) (M) A 2010 [id number] JUSTIN Selected Encounter This section includes the information on record at [place] for the Encounter. Date/Time Encounter Type Encounter Description Reason Provider Source Apr 15, 2022 02:30 Outpatient Encounter COMMUNITY CARE PM CONSULT IHE Encounter Template Text not used by [place] Plan of Treatment: Future Appointments (+ 6 months) and Future Tests (+/- 45 days) The Plan of Treatment section includes future care activities for the patient from all [place] treatmentfacilities. This section includes future appointments and future orders which are active, pending orscheduled.Future Appointments This section includes appointments that were scheduled to occur 6 months from the date of the Encounter, up to a maximum of 20 appointments. The data comes from all [place] treatment facilities. Appointment Date/Time Appointment Type Appointment Facili ty Name Apr 30, 2022 01:00 PM AMBULATORY PSYCHIATRY [place] [facility] [place] [facility] Jun 25, 2022 08:00 [facility] [place] [facility] Jun 25, 2022 01:00 [facility] [place] [facility] Jul 30, 2022 01:30 [facility] [place] [facility] Aug 07, 2022 02:00 PM [facility] [place] [facility] Lab Results: +/- 30 days of the [...] Interpretation Reference Range Comment May 05, 2022 [place] [facility] PT & INR ([place]) Specimen Ty pe: PLASMA 11:55 AM [facility] No comment enter ed. Ordering Provid er: SERA MEEKS Report Released Date/Time: May 05, 2022 11:54 AM Reporting [facility] [address] [facility] [address] Performing Lab: [facility] [address] [facility] [address] INR 3.0 PROTIME 33.6 H 10.0-13.1 Apr 28, 2022 [facility] PT & INR ([place]) Specimen Ty pe: PLASMA 01:14 PM [facility] No comment enter ed. Ordering Provid er: SERA MEEKS Report Released Date/Time: Mar 13, 2022 03:43 PM Reporting Lab: [place] [facility] [facility] [address] [facility] [address] Performing Lab: [place] [facility] [address] [facility] [address] INR 4.3 PROTIME 47.6 H 10.0-13.1 Social [...] 20, 2021 01:00 PM VA-TOBACCO FORMER USER [place] [facility] Tobacco Use History This section includes a history of the smoking, or tobacco- related health factors, that were collected on or before the date of the Encounter. The data comes from the [place] facility where the Encounter took place. Date/Time Smoking Status/Tobacco Comment Facility Use Mar 20, 2021 01:00 VA-TOBACCO QUIT 15 YRS OR [facility] PM [place] [facility] January 17, 2020 11:33 VA-TOBACCO FORMER USER [facility] [place] [facility] January 17, 2020 11:33 VA-TOBACCO QUIT 15 YRS OR [facility] AM [place] [facility] Nov 23, 2018 01:22 VA-TOBACCO FORMER USER [facility] [place] [facility] Nov 23, 2018 01:22 VA-TOBACCO QUIT 15 YRS OR [facility] PM [place] [facility] January 18, 2018 12:53 QUIT TOBACCO USE 1-7 [facility] PM YEARS AGO PT STATES HE STOPP 4 YR AGO [place] [facility] Dec 09, 2016 01:07 QUIT TOBACCO USE > 7 [facility] PM [place] AGO [place] [facility] Nov 11, 2015 01:13 QUIT TOBACCO USE > 7 [facility] PM YEARS AGO [facility] Nov 19, 2004 03:17 HISTORY OF SMOKING [facility] PM quit 30 yrs ago [facility] Aug 10, 2003 01:03 HISTORY OF SMOKING [facility] Apr 12, 2002 02:36 QUIT TOBACCO USE > 7 [place] [facility] PM YEARS AGO [facility]
--- OUTSIDE RECORDS SUMMARY | 2022-11-03 05:46 | XMS_ITS | Encounter Summary ---
:1945 Author Organization Department [facility] rs Address [address] [place] [address] Support Name Relationship Address Phone EJ SCHULTE Unavailable [address] [place] [address] EJ SCHULTE Unavailable [address] [place] [address] Insurance Providers: All historical and current Section [...] Name to Policy Number Spann WILVER [facility] Aug 23, [id number] [phone] POLY ON,J PATIENT ION 2015 7 3 JUSTIN GEHA FEHB PREFERRED MANUEL Aug 23, [id number] [phone] AKUA [place],J PATIENT PROVIDER MICHELA 2012 ALTH 7 136 JUSTIN ORGANIZAT GOV ION (PPO) GEHA FEHB PREFERRED GEHA Aug 23, [id number] [phone] [address]ON,J PATIENT PROVIDER DAVID 2012 2 7 136 JUSTIN ORGANIZAT CTION ION (PPO) DENT MEDICARE MEDICARE PART Sep 23, PART A [id number] Bertha FENG PATIENT (WNR) (M) A [id number] 2 JUSTIN MEDICARE MEDICARE PART Sep 23, PART B [id number] Bertha FENG PATIENT (WNR) (M) B 2010 MJ 2 JUSTIN Selected Encounter This section includes the information on record at MS for the Encounter. Date/Time Encounter Type Encounter Description Reason Provider Source Jul 02, 2022 08:46 Outpatient Encounter OPTOMETRY AM IHE Encounter Template Text not used by MS Plan of Treatment: Future Appointments (+ 6 months) and Future Tests (+/- 45 days) The Plan of Treatment section includes future care activities for the patient from all [facility] This section includes future appointments and future orders which are active, pending orscheduled.Future Appointments This section includes appointments that were scheduled to occur 6 months from the date of the Encounter, up to a maximum of 20 appointments. The data comes from all [facility]. Appointment Date/Time Appointment Type Appointment Facili ty Name Jul 30, 2022 01:30 PM AM[facility]UL[facility] Aug 07, 2022 02:00 PM AMBULATORY MEDICINE [place] [facility] [place] [facility] Nov 02, 2022 12:10 PM AMBULATORY MEDICINE [place] [facility] [place] [facility] Nov 12, 2022 12:45 PM AMBULATORY MEDICINE [place] [facility] [place] [facility] December 23, 2022 01:30 PM AMBULATORY MEDICINE [place] [facility] [place] [facility] December 28, 2022 01:30 PM AMBULATORY PSYCHIATRY [facility] [place] [facility] Active, Pending, and Scheduled Orders This section includes a listing of several types of active, pending, and scheduled orders, including clinic medications orders, diagnostic test orders, procedure orders and consult orders; where the start date of the order is 45 days before the date of the Encounter or 45 days after the date of the Encounter. The data comes from all [facility]. Test Date/Time Test Type Test Details Facility Name Jun 24, 2022 08:49 AM Consult Order [facility] MS C NTRL WSTRN SPECIALTY Cons [place] [facility] Advanced Practice Registered Nurse's Choice Jul 06, 2022 05:16 PM [facility] Cons [place] [facility] Advanced Practice Registered Nurse's Choice Lab Results: +/- 30 days of [...] Range Comment Jul 08, 2022 10:56 AM [facility]KER PT & INR (COUMADIN) Speci men Type: PLASMA No comment enter ed. Ordering Provid er: SUDHEER KEENAN Report Released Date/Time: Jun 11, 2022 04:07 PM Reporting Lab: [facility] [place] [facility] [address] [facility] [address] Performing Lab: [facility] [place] [facility] [address] [facility] [address] INR 2.7 PROTIME 31.6 H 10.0-13.1 Jun 11, 2022 [facility] LIPID PANEL FASTING Specimen Ty pe: SERUM 10:02 AM [place] [facility] No comment enter ed. Ordering Provid er: BOYD GROSS Report Released Date/Time: Jun 04, 2022 02:50 PM Reporting Lab: [facility] [place] [facility] [address] [facility] [address] Performing Lab: [facility] [place] [facility] [address] [facility] [address] CHOLESTEROL 113 <7-199 TRIGLYCERIDE 150 0-150 LDL calculated 37 0-129 CHOL/HDL 2.5 HDL CHOLESTEROL 46 40-60 Jun 11, 2022 [facility] BASIC METABOLIC Specimen Type: SERUM 10:02 AM [place] [facility] PANEL (fasting) No comment enter ed. Ordering Provid er: BOYD GROSS Report Released Date/Time: Jun 04, 2022 02:50 PM Reporting Lab: [facility] [place] [facility] [address] [facility] [address] Performing Lab: [facility] [place] [facility] [address] [facility] [address] UREA NITROGEN 12 7-25 GLUCOSE 108 H 65-100 SODIUM 138 135-145 POTASSIUM 4.2 3.5-5.0 CHLORIDE 107 100-110 CO2 22 20-30 CREATININE, Serum 0.80 0.50-1.40 eGFR(CKD-EPI 2020) >90 >60 Jun 11, 2022 [facility] HEMOGLOBIN A1C Specimen Type: BLOOD 10:02 AM [place] [facility] PANEL Comment: Values obtained from A1C measurements can vary. For atypical A1C assays, a reported value of 7.0 could actually be between 6.72 and 7.28 if measured by a reference method. A reported value of 9.0 could actual ly be between 8.73 and 9.27. Ref: http://www.ngsp.org/CAPdata.asp Ordering Provid er: BOYD GROSS Report Released Date/Time: Jun 04, 2022 02:50 PM Reporting Lab: [facility] [place] [facility] [address] [facility] [address] Performing Lab: [facility] [place] [facility] [address] [facility] [address] HEMOGLOBIN A1C 5.4 4.0-5.6 Jun 11, 2022 10:02 [facility] LIVER FUNCTION Specimen Typ e: SERUM AM [place] [facility] No comment enter ed. Ordering Provid er: BOYD GROSS Report Released Date/Time: Jun 04, 2022 02:50 PM Reporting Lab: [facility] [place] [facility] [address] [facility] [address] Performing Lab: [facility] [place] [facility] [address] [facility] [address] PROTEIN,TOTAL 6.9 6.0-8.3 ALBUMIN 3.8 3.5-5.0 ALKALINE PHOSPHATASE 97 40-150 AST 24 5-34 ALT 17 <6-55 BILIRUBIN, TOTAL 0.9 0.2-1.2 Jun 11, 2022 10:02 [facility] CBC AND DIFF Specimen Typ e: BLOOD AM [place] [facility] (AUTO) No comment enter ed. Ordering Provid er: BOYD GROSS Report Released Date/Time: Jun 04, 2022 02:50 PM Reporting Lab: [facility] [place] [facility] [address] [facility] [address] Performing Lab: [facility] [place] [facility] [address] [facility] [address] WBC 6.46 4.50-11.00 RBC 4.54 4.23-5.66 HGB 14.1 12.8-17 HCT 40.7 39.2-50.4 MCV 89.6 82-99 MCHC 34.6 30.8-35.1 PLT 227 140-360 RDW-CV 12.3 12.0-16.0 Elbert, Abs 0.51 0.30-1.10 MCH 31.1 26.2-32.6 Neut % 66.4 Lymph % 17.2 Elbert % 7.9 Eos % 7.1 Baso % 1.1 Neut, Abs 4.29 2.20-7.60 Lymph, Abs 1.11 1.00-3.20 Eos, Abs 0.46 H 0.03-0.44 Baso, Abs 0.07 0.01-0.13 Immature Gran % 0.3 Immature Gran, Abs 0.02 0.00-0.06 Jun 11, 2022 10:02 AM [facility] PT & INR (COUMADIN) Speci men Type: PLASMA No comment enter ed. Ordering Provid er: CIRILO HUNTER Report Released Date/Time: May 20, 2022 12:37 PM Reporting Lab: [address] [address] Performing Lab: [address] [address] INR 2.5 PROTIME 28.4 H 10.0-13.1 Social History: Smoking Status (Most [...] 30, 2022 01:00 PM VA-TOBACCO FORMER USER [facility] Tobacco Use History This section includes a history of the smoking, or tobacco- related health factors, that were collected on or before the date of the Encounter. The data comes from the [place] facility where the Encounter took place. Date/Time Smoking Status/Tobacco Comment Facility Use Apr 30, 2022 01:00 MS-TOBACCO QUIT 15 YRS OR [facility] PM MORE [place] [facility] Mar 20, 2021 01:00 VA-TOBACCO FORMER USER VA CNT RL WSTRN PM [place] [facility] Mar 20, 2021 01:00 VA-TOBACCO QUIT 15 YRS OR VA [facility] PM MORE [place] [facility] January 17, 2020 11:33 VA-TOBACCO FORMER USER VA CNT RL WSTRN AM [place] [facility] January 17, 2020 11:33 VA-TOBACCO QUIT 15 YRS OR VA [facility] AM MORE [place] [facility] Nov 23, 2018 01:22 VA-TOBACCO FORMER USER VA [facility] PM [place] [facility] Nov 23, 2018 01:22 VA-TOBACCO QUIT 15 YRS OR [facility] PM MORE [place] [facility] January 18, 2018 12:53 QUIT TOBACCO USE 1-7 VA CNTRL WSTRN PM YEARS AGO PT STATES HE STOPP 4 YR AGO [place] [facility] Dec 09, 2016 01:07 QUIT TOBACCO USE > 7 VA CNTRL [facility] PM YEARS AGO [place] [facility] Nov 11, 2015 01:13 QUIT TOBACCO USE > 7 VA CN[facility] PM YEARS AGO [place] [facility] Nov 19, 2004 03:17 HISTORY OF SMOKING VA CN[facility] W [facility] PM quit 30 yrs ago [place] [facility] Aug 10, 2003 01:03 HISTORY OF SMOKING [facility] PM [place] [facility] Apr 12, 2002 02:36 QUIT TOBACCO USE > 7 [facility] Encounter Notes: All associated encounter notes This section contains the clinical notes associated to the Encounter. Date/Time Encounter Note(s) Provider Source Jul 02, 2022 08:46 AM OPTOMETRY SECURE MESSAGING: AMY VINCENT MS CNTRL WSTRN LOCAL TITLE: OPTOMETRY SECURE MESSAGING [facility] STANDARD TITLE: OPTOMETRY SECURE MESSAGING DATE OF NOTE: JUL 02, 2022@08:46 ENTRY DATE: JUL 02, 2022@08:46:06 AUTHOR: AMY VINCENT EXP COSIGNER: URGENCY: STATUS: COMPLETED ------Original Message Sent: 07/01/2022 09:51 AM ET From: KAMLA SCHULTE To: OPTOMETRY_NHM@ Subject: General:Records Please send a copy of my last eye exam t o the office of Doctor Uli Vuong [address] [place] [address] [place] [address] FAX [phone] Thanks Derrell Schulte [phone] ------Original Message Sent: 07/02/2022 08:45 AM ET From: AMY VINCENT To: KAMLA SCHULTE Subject: General:Records Good morning Mr. Schulte, The process would be for you to call the medical records department. Please call [phone] ext. [phone]. If you have any fur ther questions please don't hesitate to message me back. Christy Vincent /yeimy/ AMY VINCENT Signed: 07/02/2022 08:46
--- OUTSIDE RECORDS SUMMARY | 2022-11-03 05:47 | XMS_ITS | Encounter Summary ---
:[address] [facility] rs Address [address] [place] [id number] Support Name Relationship Address Phone EJ SCHULTE Unavailable [address] [place] [address] EJ SCHULTE Unavailable [address] [place] [address] Insurance Providers: All historical and current Section [...] Name to Policy Number Spann WILVER [facility] Aug 23, [id number] [phone] POLY ON,J PATIENT ION 2015 7 3 JUSTIN GEHA FEHB PREFERRED [facility] Aug 23, [id number] [phone] Bertha RICHARDSON PATIENT PROVIDER AL 2012 ALTH 7 136 JUSTIN ORGANIZAT GOV ION (PPO) GEHA FEHB PREFERRED GEHA Aug 23, [id number] [phone] [address]ON,J PATIENT PROVIDER DAVID 2012 2 7 136 JUSTIN ORGANIZAT CTION ION (PPO) DENT MEDICARE MEDICARE PART Sep 23, PART A [id number] Bertha FENG PATIENT (WNR) (M) A [id number] 2 JUSTIN MEDICARE MEDICARE PART Sep 23, PART B [id number] Bertha FENG PATIENT (WNR) (M) B 2010 [id number] 2 JUSTIN Selected Encounter This section includes the information on record at OR for the Encounter. Date/Time Encounter Type Encounter Description Reason Provider Source Jun 25, 2022 12:00 Outpatient Encounter COMMUNITY CARE AM CONSULT IHE Encounter Template Text not used by OR Plan of Treatment: Future Appointments (+ 6 months) and Future Tests (+/- 45 days) The Plan of Treatment section includes future care activities for the patient from all [place] [facility] This section includes future appointments and future orders which are active, pending orscheduled.Future Appointments This section includes appointments that were scheduled to occur 6 months from the date of the Encounter, up to a maximum of 20 appointments. The data comes from all [place] treatment [facility]. Appointment Date/Time Appointment Type Appointment Facili ty Name Jul 30, 2022 01:30 PM AMBULAT[facility] Aug 07, 2022 02:00 PM AMBULATORY - MEDICINE [place] [facility] [place] [facility] Nov 02, 2022 12:10 PM AMBULATORY MEDICINE [place] [facility] [place] [facility] Nov 12, 2022 12:45 PM AMBULATORY MEDICINE [place] [facility] [place] [facility] December 23, 2022 01:30 PM AMBULATORY MEDICINE [facility] [place] [place] [facility] Active, Pending, and Scheduled Orders This section includes a listing of several types of active, pending, and scheduled orders, including clinic medications orders, diagnostic test orders, procedure orders and consult orders; where the start date of the order is 45 days before the date of the Encounter or 45 days after the date of the Encounter. The data comes from all [facility]. Test Date/Time Test Type Test Details Facility Name Jun 24, 2022 08:49 AM Consult Order [facility] OR C NTRL WSTRN SPECIALTY Cons [place] [facility] Canary Raiser's Choice Jul 06, 2022 05:16 PM Consult [facility] GENERAL Cons [place] [facility] Canary Raiser's Choice Lab Results: +/- 30 days of [...] Range Comment Jul 08, 2022 10:56 AM [place] PT & INR (COUMADIN) Speci men Type: PLASMA No comment enter ed. Ordering Provid er: SUDHEER KEENAN Report Released Date/Time: Jun 11, 2022 04:07 PM Reporting Lab: [place] [facility] [place] [facility] [address] [facility] [address] Performing Lab: [facility] [place] [facility] [address] [facility] [address] INR 2.7 PROTIME 31.6 H 10.0-13.1 Jun 11, 2022 VA [facility] W[facility] LIPID PANEL FASTING Specimen Ty pe: SERUM 10:02 AM [place] [facility] No comment enter ed. Ordering Provid er: BOYD GROSS Report Released Date/Time: Jun 04, 2022 02:50 PM Reporting Lab: [place] [facility] [place] [facility] [address] [facility] [address] Performing Lab: [place] [facility] [place] [facility] [address] [facility] [address] CHOLESTEROL 113 <7-199 TRIGLYCERIDE 150 0-150 LDL calculated 37 0-129 CHOL/HDL 2.5 HDL CHOLESTEROL 46 40-60 Jun 11, 2022 VA [facility] BASIC METABOLIC Specimen Type: SERUM 10:02 AM [place] [facility] PANEL (fasting) No comment enter ed. Ordering Provid er: BOYD GROSS Report Released Date/Time: Jun 04, 2022 02:50 PM Reporting Lab: [facility] [place] [facility] [address] [facility] [address] Performing Lab: [facility] [place] [facility] [address] [facility] [address] UREA NITROGEN 12 7-25 GLUCOSE 108 H [...] Jun 04, 2022 02:50 PM Reporting Lab: [facility] [place] [facility] [address] [facility] [address] Performing Lab: [facility] [address] [facility] [address] HEMOGLOBIN A1C 5.4 4.0-5.6 Jun 11, 2022 10:02 [facility] LIVER FUNCTION Specimen Typ e: SERUM AM [facility] No comment enter ed. Ordering Provid er: BOYD GROSS Report Released Date/Time: Jun 04, 2022 02:50 PM Reporting Lab: [facility] [address] [facility] [address] Performing Lab: [facility] [address] [facility] [address] PROTEIN,TOTAL 6.9 6.0-8.3 ALBUMIN 3.8 3.5-5.0 ALKALINE PHOSPHATASE 97 40-150 AST 24 5-34 ALT 17 <6-55 BILIRUBIN, TOTAL 0.9 0.2-1.2 Jun 11, 2022 10:02 [facility] CBC AND DIFF Specimen Typ e: BLOOD AM [facility] (AUTO) No comment enter ed. Ordering Provid er: BOYD GROSS Report Released Date/Time: Jun 04, 2022 02:50 PM Reporting Lab: [facility] [address] [facility] [address] Performing Lab: [facility] [address] [facility] [address] WBC 6.46 4.50-11.00 RBC 4.54 4.23-5.66 HGB [...] 0.02 0.00-0.06 Jun 11, 2022 10:02 AM [place] PT & INR (COUMADIN) Speci men Type: PLASMA No comment enter ed. Ordering Provid er: CIRILO HUNTER Report Released Date/Time: May 20, 2022 12:37 PM Reporting Lab: [facility] [address] [facility] [address] Performing Lab: [facility] [address] [facility] [address] INR 2.5 PROTIME 28.4 H 10.0-13.1 Vital Signs: All taken on the encounter date This section contains inpatient and outpatient Vital Signs collected on the date of the Encounter. Date/Time Temperature Pulse Blood Respiratory SP02 Pain Height Weight Tk dy Source Pressure Rate Mass Index Jun 25 97.9 F 67 140/70 16 /min 98 % 4 217.8 30 OR 2021 12:47 /min mm[Hg] lb [facility] Social History: Smoking Status (Most current) [...] 30, 2022 01:00 PM VA-TOBACCO FORMER USER [facility] Tobacco Use History This section includes a history of the smoking, or tobacco- related health factors, that were collected on or before the date of the Encounter. The data comes from the [place] facility where the Encounter took place. Date/Time Smoking Status/Tobacco Comment Facility Use Apr 30, 2022 01:00 VA-TOBACCO QUIT 15 YRS OR VA CN[facility] PM MORE [place] [facility] Mar 20, 2021 01:00 VA-TOBACCO FORMER USER [facility] PM [place] [facility] Mar 20, 2021 01:00 VA-TOBACCO QUIT 15 YRS OR VA CN[facility] PM MORE [place] [facility] January 17, 2020 11:33 VA-TOBACCO FORMER USER [facility] AM [place] [facility] January 17, 2020 11:33 VA-TOBACCO QUIT 15 YRS OR VA CN[facility]L W[facility] AM MORE [place] [facility] Nov 23, 2018 01:22 VA-TOBACCO FORMER USER VA CNT [facility] PM [place] [facility] Nov 23, 2018 01:22 VA-TOBACCO QUIT 15 YRS OR VA [facility] PM [facility] January 18, 2018 12:53 QUIT TOBACCO USE 1-7 VA CNTRL WSTRN PM YEARS AGO PT STATES [facility] [address] [facility] Dec 09, 2016 01:07 QUIT TOBACCO USE > 7 VA CNTRL WSTRN PM YEARS AGO [facility] Nov 11, 2015 01:13 QUIT TOBACCO USE > 7 VA CNTRL WSTRN PM YEARS A[facility] Nov 19, 2004 03:17 HISTORY OF SMOKING VA CNTRL W STRN PM quit 30 yrs ago [facility] Aug 10, 2003 01:03 HISTORY OF SMOKING [facility] W [facility] PM [facility] Apr 12, 2002 02:36 QUIT TOBACCO USE > 7 VA CNTRL WSTRN PM YEARS AGO [facility] Encounter Notes: All associated encounter notes This section contains the clinical notes associated to the Encounter. Date/Time Encounter Note(s) Provider Source Jun 25, 2022 12:00 AM NONVA CONSULT: [facility] LOCAL TITLE: COMMUNITY CARE-CONSULT RESULT NOTE [facility] STANDARD TITLE: NONVA CONSULT DATE OF NOTE: JUN 25, 2022 ENTRY DATE: JUL 10 022@14:28:11 AUTHOR: FLORA PRABHAKAR EXP COSIGNER: URGENCY: STATUS: COMPLETED VistA Imaging - Scanned Document SCANNED DOCUMENT SIGNATURE NOT REQUIRED Electronically Filed: 07/10/2022 by: FLORA PRABHAKAR [employer]ING [employer]CTOR
--- OUTSIDE RECORDS SUMMARY | 2022-11-03 05:47 | XMS_ITS | Encounter Summary ---
:1945 Author Organization [facility] rs Address [address] [place] [id number] Support Name Relationship Address Phone EJ SCHULTE Unavailable [address] [place] [address] EJ SCHULTE Unavailable [address] [place] [address] Insurance Providers: All historical and current Section [...] Name to Policy Number Spann WILVER MESSERT [facility] Aug 23, [id number] [phone] POLY ON,J PATIENT ION 2015 7 3 JUSTIN GEHA FEHB PREFERRED [facility] Aug 23, [id number] [phone] Bertha RICHARDSON PATIENT PROVIDER AL 2012 ALTH 7 136 JUSTIN ORGANIZAT GOV ION (PPO) GEHA FEHB PREFERRED GEHA Aug 23, [id number] [phone] [address]ON,J PATIENT PROVIDER DAVID 2012 2 7 136 JUSTIN ORGANIZAT CTION ION (PPO) DENT MEDICARE MEDICARE PART Sep 23, PART A [id number] Bertha FENG PATIENT (WNR) (M) A [id number] 2 JUSTIN MEDICARE MEDICARE PART Sep 23, PART B [id number] Bertha FENG PATIENT (WNR) (M) B 2010 [id number] 2 JUSTIN Selected Encounter This section includes the information on record at [place] for the Encounter. Date/Time Encounter Type Encounter Reason Provider Source Description Jul 08, 2022 HC PRO PHONE TELEPHONE/ANCILLA ICD-10-CM Z51.81 ALYSON HUNTER 01:40 PM CALL 5-10 MIN RY Encounter for therapeutic drug level monitoring with Provider Comments: Therapeutic Drug Level Monitoring IHE Encounter Template Text not used by [facility] Assessments - Encounter Diagnoses This section includes the primary and secondary diagnoses documented for the Encounter. Date/Time Primary/Secondary Diagnosis Name Provider Source Diagnosis Jul 08, 2022 PRIMARY Encounter for SHRUTHI HUNTER [facility] W[facility] N 01:40 PM therapeutic drug [facility] level monitoring Jul 08, 2022 SECONDARY [facility] (current) HUNTERSHRUTHI Lisa [facility] 01:40 PM use of [facility] anticoagulants Jul 08, 2022 SECONDARY Presence of other SHRUTHI HUNTER Lisa [facility]N 01:40 PM heart-valve [facility] replacement Plan of Treatment: Future Appointments (+ 6 months) and Future Tests (+/- 45 days) The Plan of Treatment section includes future care activities for the patient from all [place] treatmentfacilities. This section includes future appointments and future orders which are active, pending orscheduled.Future Appointments This section includes appointments that were scheduled to occur 6 months from the date of the Encounter, up to a maximum of 20 appointments. The data comes from all [place] treatment facilities. Appointment Date/Time Appointment Type Appointment Facili ty Name Jul 30, 2022 01:30 PM AM[facility] [place] [facility] Aug 07, 2022 02:00 PM [facility] [place] [facility] Nov 02, 2022 12:10 PM [facility] [place] [facility] Nov 12, 2022 12:45 PM [facility] [place] [facility] December 23, 2022 01:30 PM [facility] [place] [facility] December 28, 2022 01:30 PM [facility] [place] [facility] Active, Pending, and Scheduled Orders This section includes a listing of several types of active, pending, and scheduled orders, including clinic medications orders, diagnostic test orders, procedure orders and consult orders; where the start date of the order is 45 days before the date of the Encounter or 45 days after the date of the Encounter. The data comes from all [place] treatment facilities. Test Date/Time Test Type Test Details Facility Name Jun 24, 2022 08:49 AM Consult Order [facility] Jul 06, 2022 05:16 PM Consult Order [facility] [place] [facility] GENER[facility] Lab Results: +/- 30 days of the encounter This section includes the Chemistry and Hematology Lab Results on record with [place] for the patient. Radiology Reports and Pathology Reports are provided separately, in subsequent sections.Lab Results This section contains the Chemistry/Hematology Results that were resulted 30 days before or 30 daysafter the date of the Encounter. Date/Time Source Result Type Result - Unit Interpretation Reference Range Comment Jul 08, 2022 10:56 AM [facility] PT & INR (COU[facility]ADIN) Speci men Type: PLASMA No comment enter ed. Ordering Provid er: SUDHEER KEENAN Report Released Date/Time: Jun 11, 2022 04:07 PM Reporting Lab: [facility] [address] [address] Performing Lab: [address] [address] INR 2.7 PROTIME 31.6 H 10.0-13.1 Jun 11, 2022 [facility] HEMOGLOBIN A1C Specimen Type: BLOOD 10:02 AM [facility] PANEL Comment: Values obtained from A1C measurements can vary. For atypical A1C assays, a reported value of 7.0 could actually be between 6.72 and 7.28 if measured by a reference method. A reported value of 9.0 could actual ly be between 8.73 and 9.27. Ref: http://www.ngsp.org/CAPdata.asp Ordering Provid er: BOYD GROSS Report Released Date/Time: Jun 04, 2022 02:50 PM Reporting Lab: [address] [address] Performing Lab: [facility] [address] [address] HEMOGLOBIN A1C 5.4 4.0-5.6 Jun 11, 2022 [facility] BASIC METABOLIC Specimen Type: SERUM 10:02 AM [facility] PANEL (fasting) No comment enter ed. Ordering Provid er: BOYD GROSS Report Released Date/Time: Jun 04, 2022 02:50 PM Reporting Lab: [facility] [place] [facility] [address] [address] Performing Lab: [facility] [address] [address] UREA NITROGEN 12 7-25 GLUCOSE 108 H 65-100 SODIUM 138 135-145 POTASSIUM 4.2 3.5-5.0 CHLORIDE 107 100-110 CO2 22 20-30 CREATININE, Serum 0.80 0.50-1.40 eGFR(CKD-EPI 2020) >90 >60 Jun 11, 2022 10:02 [facility] LIVER FUNCTION Specimen Typ e: SERUM AM [facility] No comment enter ed. Ordering Provid er: BOYD GROSS Report Released Date/Time: Jun 04, 2022 02:50 PM Reporting Lab: [facility] [place] [facility] [address] [address] Performing Lab: [facility] [place] [facility] [address] [address] PROTEIN,TOTAL 6.9 6.0-8.3 ALBUMIN 3.8 3.5-5.0 ALKALINE PHOSPHATASE 97 40-150 AST 24 5-34 ALT 17 <6-55 BILIRUBIN, TOTAL 0.9 0.2-1.2 Jun 11, 2022 [facility] LIPID PANEL FASTING Specimen Ty pe: SERUM 10:02 AM [facility] No comment enter ed. Ordering Provid er: BOYD GROSS Report Released Date/Time: Jun 04, 2022 02:50 PM Reporting Lab: [facility] [place] [facility] [address] [address] Performing Lab: [facility] [place] [facility] [address] [address] CHOLESTEROL 113 <7-199 TRIGLYCERIDE 150 0-150 LDL calculated 37 0-129 CHOL/HDL 2.5 HDL CHOLESTEROL 46 40-60 Jun 11, 2022 10:02 [facility] CBC AND DIFF Specimen Typ e: BLOOD AM [facility] No comment enter ed. Ordering Provid er: BOYD GROSS Report Released Date/Time: Jun 04, 2022 02:50 PM Reporting Lab: [facility] [address] [address] Performing Lab: [facility] [address] [address] WBC 6.46 4.50-11.00 RBC 4.54 4.23-5.66 HGB 14.1 12.8-17 HCT 40.7 39.2-50.4 MCV 89.6 82-99 MCHC 34.6 30.8-35.1 PLT 227 140-360 RDW-CV 12.3 12.0-16.0 Bertie, Abs 0.51 0.30-1.10 MCH 31.1 26.2-32.6 Neut % 66.4 Lymph % 17.2 Bertie % 7.9 Eos % 7.1 Baso % 1.1 Neut, Abs 4.29 2.20-7.60 Lymph, Abs 1.11 1.00-3.20 Eos, Abs 0.46 H 0.03-0.44 Baso, Abs 0.07 0.01-0.13 Immature Gran % 0.3 Immature Gran, Abs 0.02 0.00-0.06 Jun 11, 2022 10:02 AM [facility] PT & INR ([facility]OU[facility]IN) Speci men Type: PLASMA No comment enter ed. Ordering Provid er: SHRUTHI HUNTER Report Released Date/Time: May 20, 2022 12:37 PM Reporting Lab: [facility] [address] [address] Performing Lab: [facility] [address] [address] INR 2.5 PROTIME 28.4 H 10.0-13.1 Social History: Smoking Status (Most current) and Tobacco Use (All prior to encounter date) This section includes the most current, and the historical, smoking and tobacco-related health factors from the [place] facility where the Encounter took place.Current Smoking Status This section includes the most current smoking, or tobacco-related health factor, from the [place] facility where the Encounter took place. Date/Time Current Smoking Status Comment Facility Apr 30, 2022 01:00 PM VA-TOBACCO FORMER USER [facility] [place] [facility] Tobacco Use History This section includes a history of the smoking, or tobacco- related health factors, that were collected on or before the date of the Encounter. The data comes from the [place] facility where the Encounter took place. Date/Time Smoking Status/Tobacco Comment Facility Use Apr 30, 2022 01:00 VA-TOBACCO QUIT 15 YRS OR [facility] PM MORE [place] [facility] Mar 20, 2021 01:00 VA-TOBACCO FORMER USER [facility] PM [place] [facility] Mar 20, 2021 01:00 VA-TOBACCO QUIT 15 YRS OR [facility] PM MORE [place] [facility] January 17, 2020 11:33 VA-TOBACCO FORMER USER [facility] AM [place] [facility] January 17, 2020 11:33 VA-TOBACCO QUIT 15 YRS OR [facility] AM MORE [place] [facility] Nov 23, 2018 01:22 VA-TOBACCO FORMER USER [facility] PM [place] [facility] Nov 23, 2018 01:22 VA-TOBACCO QUIT 15 YRS OR [facility] PM MORE [place] [facility] January 18, 2018 12:53 QUIT TOBACCO USE 1-7 [facility] PM YEARS AGO PT STATES HE STOPP 4 YR AGO [place] [facility] Dec 09, 2016 01:07 QUIT TOBACCO USE > 7 [facility] PM YEARS AGO [place] [facility] Nov 11, 2015 01:13 QUIT TOBACCO USE > 7 [facility] PM YEARS AGO [place] [facility] Nov 19, 2004 03:17 HISTORY OF SMOKING [facility] PM quit 30 yrs ago [place] [facility] Aug 10, 2003 01:03 HISTORY OF SMOKING [facility] PM [place] [facility] Apr 12, 2002 02:36 QUIT TOBACCO USE > 7 [facility] PM YEARS AGO [facility] Encounter Notes: All associated encounter notes This section contains the clinical notes associated to the Encounter. Date/Time Encounter Note(s) Provider Source Jul 08, 2022 01:40 PHARMACY MEDICATION MGT NOTE: MARILYNN BOWER [facility] PM LOCAL TITLE: PHARMACY ANTICOAGULATION NOTE [facility] STANDARD TITLE: PHARMACY MEDICATION MGT NOTE DATE OF NOTE: JUL 08, 2022@13:40 ENTRY DATE: JUL 08, 2022@13:40:39 AUTHOR: ZAK BOWER EXP COSIGNER: URGENCY: STATUS: COMPLETED PHARMACY ANTICOAGULATION NOTE Has ADDENDA * REFERRED TO CLINIC ON: 06/14/07 PRIMARY CARE PHYSICIAN: Dr. James SHABAZZ INFORMATION: OTHER CONTACT INFORMATION: PATIENT'S PHONE #: [phone] cell (call first ) [phone] home - can speak w/ Ej per pt's verbal authorization CLINIC LOCATION: [facility] COUMADIN THERAPY INITIATED ON: 1992 PLANNED DURATION OF THERAPY: lifetime ESTIMATED STOP DATE: n/a INDICATION FOR COUMADIN: St See's valve GOAL INR: 2-3 (goal changed 09/29/13) RELEVANT HISTORY: DRUG INTERACTIONS: citalopram, lansoprazole, APA P, coenzyme Q10 Last CBC: 06/11/22 Last PCP appt: 06/25/22 RECENT DOSING HISTORY (dose in mg): DATE [...] 5 7.5 5 7.5 5 7.5 2.5 07/08/22 7.5 5 7.5 5 7.5 5 7.5 2.7 *spoke with pt* CORRECT DOSE: yes MISSED DOSES: denies BLEEDING: denies NEW EVENTS: denies PROCEDURES: denies MED CHANGES: denies DIET CHANGES: ~1 salad/week per previous notes EtOH: ~1-2 beers a day or less - per previous no katy TOBACCO: TABLETS: filled x 90 days on 06/29/22 OTHER: takes dose in AM TABLET STRENGTH: 5mg ASSESSMENT: INR is therapeutic at 2.7 (goal 2-3) PLAN: Informed pt via telephone of his I NR result from today. Instructed pt to c/w weekly warfarin dose of 45mg/week, taking 7.5mg daily x 4 days except 5mg on Mon/Wed/Fri. Informed pt of his next PT/INR sche duled on 08/19/22. Return to clinic: Jul 6 weeks [facility] Time spent with patient: 5 minutes EDUCATION Provided with verbal instructions: Yes Provided with written instructions: No Barriers to learning: No Readiness to learn: Yes Specific dose directions reviewed: Yes Opportunity for questions/discussion: Yes Reports understanding of instructions: Yes Further learning needs: No Provided patient education on the following: None INR 2.00-3.00: Therapeutic /yeimy/ ZAK BOWER CPHT Clinical Director Advanced Signed: 07/08/2022 13:49 Receipt Acknowledged By: 07/08/2022 13:54 /yeimy/ Shruthi Hunter PharmD,[facility] Clinical Pharmacy Practitioner 07/08/2022 ADDENDUM STATUS: COMPLETED Case reviewed with [facility] Data Analyst Etl Developer who en tered this note. Agree with assessment and plan. /yeimy/ Shruthi Hunter PharmD,[facility] Clinical Pharmacy Practitioner Signed: 07/08/2022 13:54
--- OUTSIDE RECORDS SUMMARY | 2022-11-03 05:48 | XMS_ITS | Encounter Summary ---
:1945 Author Organization [facility] rs Address [address] [place] [id number] Support Name Relationship Address Phone EJ SCHULTE Unavailable [address] [place] [address] EJ SCHULTE Unavailable [address] [place] [address] Insurance Providers: All historical and current Section [...] Name to Policy Number Spann [facility] Aug 23, [id number] [phone] POLY ON,J PATIENT ION 2015 7 3 JUSTIN GEHA FEHB PREFERRED [facility] Aug 23, [id number] [phone] Bertha RICHARDSON PATIENT PROVIDER MICHELA 2012 ALTH 7 136 JUSTIN ORGANIZAT GOV ION (PPO) GEHA FEHB PREFERRED GEHA Aug 23, [id number] [phone] AKUA LIZETT,J PATIENT PROVIDER DAVID 2012 2 7 136 JUSTIN ORGANIZAT CTION ION (PPO) DENT MEDICARE MEDICARE PART Sep 23, PART B [id number] Bertha FENG PATIENT (WNR) (M) B 2010 [id number] JUSTIN MEDICARE MEDICARE PART Sep 23, PART A [id number] Bertha FENG PATIENT (WNR) (M) A 2010 [id number] 2 JUSTIN Selected Encounter This section includes the information on record at [place] for the Encounter. Date/Time Encounter Type Encounter Reason Provider Source Description Jul 30, 2022 OFFICE O/P EST MENTAL HEALTH ICD-10-CM SHAWN SILVER 01:30 PM LOW 20-29 MIN CLINIC - IND F43.12 VERONIQUE Post-traumatic stress disorder, chronic with Provider Comments: Chronic post-traumatic stress disorder following combat ([facility] [id number]) IHE Encounter Template Text not used by VA Assessments - Encounter Diagnoses This section includes the primary and secondary diagnoses documented for the Encounter. Date/Time Primary/Secondary Diagnosis Name Provider Source Diagnosis Jul 30, 2022 PRIMARY Post-traumatic SHAWN SILVER [facility] 02:02 PM stress VERONIQUE [place] [facility] disorder, chronic Plan of Treatment: Future Appointments (+ 6 months) and Future Tests (+/- 45 days) The Plan of Treatment section includes future care activities for the patient from all [place] treatmentfacilities. This section includes future appointments and future orders which are active, pending orscheduled.Future Appointments This section includes appointments that were scheduled to occur 6 months from the date of the Encounter, up to a maximum of 20 appointments. The data comes from all [place] treatment facilities. Appointment Date/Time Appointment Type Appointment Facili ty Name Aug 07, 2022 02:00 PM AMBULATORY - MEDICINE [facility] Nov 02, 2022 12:10 PM [facility] MEDIC[facility] Nov 12, 2022 12:45 PM AMBULATORY MEDICINE [facility] December 23, 2022 01:30 PM AMBULATORY - MEDICINE [facility] [place] [facility] December 28, 2022 01:30 PM AMBULATORY - PSYCHIATRY [facility] Active, Pending, and Scheduled Orders This section includes a listing of several types of active, pending, and scheduled orders, including clinic medications orders, diagnostic test orders, procedure orders and consult orders; where the start date of the order is 45 days before the date of the Encounter or 45 days after the date of the Encounter. The data comes from all [place] treatment facilities. Test Date/Time Test Type Test Details Facility Name Jun 24, 2022 08:49 AM Consult [facility] Cons Utility Agent's Choice Jul 06, 2022 05:16 PM Consult Order [facility]AL [facility] Cons Utility Agent's Choice Aug 31, 2022 12:00 AM Laboratory - Chemistry CBC AND DIFF (AUTO) [facility] [place] Order BLOOD (LAV-BLOOD) SP [facility] Aug 31, 2022 12:00 AM Laboratory - Chemistry BNP (Natriuretic [facility] Order Peptide Brain) BLOOD [facility] (LAV-PLASMA) SP Aug 31, 2022 12:00 AM Laboratory - Chemistry PT & INR (PROTIME) [facility] [place] Order BLOOD (BLUE-PLASMA) [facility] SP Aug 31, 2022 12:00 AM Laboratory - Chemistry PTT BLOOD [facility] [place] Order (BLUE-PLASMA) SP [facility] Sep 09, 2022 12:00 AM Laboratory - Chemistry PT & INR (COUMADIN) [facility] Order BLOOD (BLUE-PLASMA) [facility] SP ONCE Lab Results: +/- 30 days of the encounter This section includes the Chemistry and Hematology Lab Results on record with [place] for the patient. Radiology Reports and Pathology Reports are provided separately, in subsequent sections.Lab Results This section contains the Chemistry/Hematology Results that were resulted 30 days before or 30 daysafter the date of the Encounter. Date/Time Source Result Type Result - Unit Interpretation Reference Range Comment Aug 26, 2022 12:58 [facility] PT & INR (COUMADIN) Specimen Type: [facility] PM [facility] No comment enter ed. Ordering Provid er: MAT TAMAYO Report Released Date/Time: Aug 19, 2022 03:07 PM Reporting Lab: [facility] [address] [id number] Performing Lab: [facility] [address] [facility] [address] INR 2.5 PROTIME 29.3 H 10.0-13.1 Aug 19, 2022 01:52 [facility] PT & INR (COUMADIN) Specimen Type: PLASMA PM [facility] No comment enter ed. Ordering Provid er: HUNTER,CIRILO A Report Released Date/Time: Jul 08, 2022 01:54 PM Reporting Lab: [place] [facility] [facility] [address] [facility] [address] Performing Lab: [place] [facility] [facility] [address] [facility] [address] INR 3.7 PROTIME 43.8 H 10.0-13.1 Jul 08, 2022 10:56 AM [place] PT & INR (COUMADIN) Speci men Type: PLASMA No comment enter ed. Ordering Provid er: SUDHEER KEENAN Report Released Date/Time: Jun 11, 2022 04:07 PM Reporting Lab: [place] [facility] [facility] [address] [facility] [address] Performing Lab: [place] [facility] [place] [facility] [address] [address] INR 2.7 PROTIME 31.6 H 10.0-13.1 Social History: Smoking Status (Most current) and Tobacco Use (All prior to encounter date) This section includes the most current, and the historical, smoking and tobacco-related health factors from the [place] facility where the Encounter took place.Current Smoking Status This section includes the most current smoking, or tobacco-related health factor, from the [place] facility where the Encounter took place. Date/Time Current Smoking Status Comment Facility Apr 30, 2022 01:00 PM VA-TOBACCO FORMER USER [place] [facility] [facility] Tobacco Use History This section includes a history of the smoking, or tobacco- related health factors, that were collected on or before the date of the Encounter. The data comes from the [place] facility where the Encounter took place. Date/Time Smoking Status/Tobacco Comment Facility Use Apr 30, 2022 01:00 VA-TOBACCO QUIT 15 YRS OR [facility] MORE [facility] [facility] Mar 20, 2021 01:00 VA-TOBACCO FORMER USER [facility] PM [facility] [facility] Mar 20, 2021 01:00 VA-TOBACCO QUIT 15 YRS OR [facility] PM MORE [facility] [facility] January 17, 2020 11:33 VA-TOBACCO FORMER USER [facility] AM [place] [facility] January 17, 2020 11:33 VA-TOBACCO QUIT 15 YRS OR [facility] AM MORE [facility] Nov 23, 2018 01:22 VA-TOBACCO FORMER USER [facility] PM [facility] Nov 23, 2018 01:22 VA-TOBACCO QUIT 15 YRS OR [facility] MORE [facility] [facility] January 18, 2018 12:53 QUIT TOBACCO USE 1-7 [facility] PM YEARS AGO PT STATES HE STOPP 4 YR AGO [facility] Dec 09, 2016 01:07 QUIT TOBACCO USE > 7 [facility] Nov 11, 2015 01:13 QUIT TOBACCO USE > 7 [facility] PM YEARS AGO [facility] Nov 19, 2004 03:17 HISTORY OF SMOKING [facility] PM quit 30 yrs ago [facility] Aug 10, 2003 01:03 HISTORY OF SMOKING [facility] Apr 12, 2002 02:36 QUIT TOBACCO USE > 7 VA [facility] PM YEARS AGO [facility] Encounter Notes: All associated encounter notes This section contains the clinical notes associated to the Encounter. Date/Time Encounter Note(s) Provider Source Jul 30, 2022 02:04 ACCOUNTING OF DISCLOSURES NOTE: RUFUS SILVER [facility] LOCAL TITLE: STATE PRESCRIPTION DRUG MONITORING PROGRAM [facility] STANDARD TITLE: ACCOUNTING OF DISCLOSURES NOTE DATE OF NOTE: JUL 30, 2022@14:04:44 ENTRY DATE: JUL 30, 2022@14:04:44 AUTHOR: KYLE SILVER EXP COSIGNER: URGENCY: STATUS: COMPLETED This PDMP query was submitted by Sabino Silver. The clinical justification for this PDMP query i s to review controlled substances prescribed outside of the VA, and any additional information that may become available, as an important compo nent of standard clinical care, and in accordance with [facility] policy. Patient information was shared with the PDMP [facility] [employer] [place]. No prescription(s) for controlled substances out side the VA were found in the last 90 days. /yeimy/ KYLE SILVER MD PSYCHIATRIST Signed: 07/30/2022 14:04 Jul 30, 2022 01:38 TELEHEALTH NOTE: KYLE SILVER [place] [facility] PM LOCAL TITLE: [place] VIDEO CONNECT PSYCHIATRIST NOTE [facility] [facility] STANDARD TITLE: TELEHEALTH NOTE DATE OF NOTE: JUL 30, 2022@13:38 ENTRY DATE: JUL 30, 2022@13:38:35 AUTHOR: KYLE SILVER EXP COSIGNER: URGENCY: STATUS: COMPLETED VA Video Connect (VVC) Standard Documentation VV Clinician Resources Only: E911 (Emergency Call Relay Center): [phone] National Veterans Crisis Line - 988 then press # 1. [place] Suicide Coordinator [phone], Ext. [phone]; Back-up Ext. [phone] [place] Police, [place], [place] [phone] Introduction: Visit is being conducted by [place] Gingerd. Lavina identified with 2 identifiers: [X] Full Name [X] Date of [ ] [place] ID Card Emergency Plan: confirmed and/or pro vided the following information in case of emergency or technology failure. PATIENT PHONE - PHONE NUMBER [CELLULAR] - Is patient phone number correct, if not, enter b elow: Lavina's phone number: KAMLA SCHULTE [address] [place], [place], [address] Lavina's present location and address for appoi ntment: Home 's emergency contact name and phone numbe r: None given Lavina reported that location is private and sa fe: Yes Informed Consent: informed of the risks and benefits of Te lehealth video care. Lavina has the right to refuse video services. If refuses video visit, a vzhm-sk-xllw visit will be scheduled. verbalized consent for this video visit: Yes Lavina provided consent for any other persons p resent for visit: N/A If yes, who and relationship to patient: Secure visit: Visit was locked for security and privacy:Yes KAMLA SCHULTE, a 76 year old WHITE MALE was se en by [facility] for scheduled mental health follow-up. MENTAL HEALTH NOTE: Lavina was seen by [facility] for 20 min for routine f ollow up. Two forms of identification was used. DIAGNOSES AND PROBLEMS TREATED THIS VISIT: Chronic PTSD SUBJECTIVE: Kamla says that this time of year is hard on him. His mother on Rosie Day years ago. Kamla is planning to have shoulder surgery (replacement) soon. He has been in a lot of pain . He was told he had some necrotic bone that they would remove and put in a new ball and socket shoulder joint. He is looking forward to not bein g in so much pain. He is going back to [facility] for his shoulder surgery after [facility] surgery locally and it not going as well as he would junior ve liked. He has better results and marli with [facility]. He keeps busy with his and his 's m edical appointments. She uses a walker to get around and this makes going [facility] more challenging. Kamla says his current medications seem to work fine for him. He wonders about making some changes to them, but doesn't want to today before surgery. SUBSTANCE ABUSE: Caffeine: 2 cups of coffee [...] TAKE ONE CAPSULE BY MOUTH ACTIVE DAILY 9) VALSARTAN 80MG TAB TAKE ONE TABLET BY MOUTH O NCE ACTIVE (S) DAILY 10) WARFARIN NA ([place]) 5MG TAB TAKE D IRECTED ACTIVE BY MOUTH WITH DIRECTIONS PROVIDED FROM YOUR VA PROVIDER ([facility]ULATION CLINIC extension [id number]) FOR THE PREVENTION OF BLOOD MARIA TERESA TS 11) ZOLPIDEM TARTRATE 10MG TAB TAKE ONE TABLET B Y MOUTH ACTIVE AT BEDTIME NEEDED FOR SLEEP Active Non-VA Medications Status 1) Non-VA COENZYME Q10 CAP/TAB ONE TABLET BY TORY TH ONCE ACTIVE DAILY NEEDED 12 Total Medications MEDICATION ADHERENCE: takes medications most day s MEDICATION SIDE EFFECTS: none OBJECTIVE: Weight: 217.8 lb [98.79 kg] (06/25/2022 12:47) B MD: 29.6 MENTAL STATUS EXAM: Orientation and Consciousness: Alert and fully o riented. Appearance and Behavior: Old er white male with short white hair dressed casually at home. Eye Contact: Good. Speech: Normal rate and volume. Mood/Affect: ok. Affect: constricted. Thought Production/Content: Logical, sequential & relevant to discussion. Perceptual Disturbances: None. Attention, concentration and memory based on answers to session questions: Good. Insight/Judgment: Both good. SI/HI: Neither elicited. Ability to Provide informed consent: Yes. ASSESSMENT:76 year old WHITE MALE, [facility] today for mental health follow up. TREATMENT PLAN/ DISCUSSION/ RATIONALE: 1.::: Medication management: Reviewed medication s with Kamla today. He continues on Celexa 20 mg qHS, Ambien 10 mg qHS prn insomnia and ativan 0.5 mg BID prn anxiety which he does not use of ten. Kamla reports his mood is stable, but he has had some increase in his depr essive symptoms which he attributes to this being a harder time of year for him (loss of his mother years ago at this time of year). Kamla has bee n in a lot of pain as well from his shoulder and is looking to have surgery on this soon. He attends to his and his 's medical issues. We discussed making some changes to his medications today. He would prefer not at this time, but he is open to talking about this again at our next visit next year. Next Visit: in 5 months. Patient is aware of how to access [facility] in [facility] during weekdays for immediate mental health n [...] with ongoing prescription of narcotics through this [place] facility. ::: Psychotropic meds were reconciled; and [...] the community (i ncluding Crisis Line, 911, [place] National Suicide Prevention Lifeline: 8-660- 151-GEUU). Patient is instructed to contact me should symptoms worsen or side effects develop. Pt agreed to use these resources if warranted. ::: Pt was educated about risks of interactions between drugs/alcohol and psychotropic medications and voiced understandi ng. Pt was also warned not to drive [...] taking medications as docu mented in the EM? No: Discrepencies were identified. See below. Essential Medication List for Review used to co mplete this medication reconciliation. INCLUDED IN THIS LIST: Alphabetical list of act pierre outpatient prescriptions dispensed from this VA (local) an d dispensed from another [place] or DoD facility (remote) as well as inpatien t orders (local, pending and active), local clinic medications, locally documented non-VA medications, and local prescriptions that have or been discontinued in the past 90 days. - Discrepancies were identified, addressed, and discussed with the patient/caregiver at this encounter. Discrepancies: He does still use the ativan at times even though the order is . - All changes in medications, including all non -VA/Herbal/OTC medications were entered into CPRS. Changes: renewed - If there were any medications the patient samira uld no longer take, they were discontinued. - The patient/caregiver was instructed to updat e this list, discard old lists, and take this list to the next appointme nt, whether with a VA or non-VA provider. /yeimy/ KYLE SILVER MD PSYCHIATRIST Signed: 07/30/2022 14:03
--- OUTSIDE RECORDS SUMMARY | 2022-11-03 05:48 | XMS_ITS | Encounter Summary ---
:1945 Author Organization [facility] rs Address [address] [place] [address] Support Name Relationship Address Phone EJ SCHULTE Unavailable [address] [place] [address] EJ SCHULTE Unavailable [address] [place] [address] Insurance Providers: All historical and current Section [...] Name to Policy Number Spann WILVER MESSERT [facility] Aug 23, [id number] [phone] PLOY ON,J PATIENT ION 2015 7 3 JUSTIN GEHA FEHB PREFERRED [facility] [place]NOTE 2] Aug 23, [id number] [phone] Bertha RICHARDSON PATIENT PROVIDER AL 2012 ALTH 7 136 JUSTIN ORGANIZAT GOV ION (PPO) GEHA FEHB PREFERRED GEHA Aug 23, [id number] [phone] AKUA [address]ON,J PATIENT PROVIDER DAVID 2012 2 7 136 JUSTIN ORGANIZAT CTION ION (PPO) DENT MEDICARE MEDICARE PART Sep 23, PART A [id number] Bertha FENG PATIENT (WNR) (M) A [id number] 2 JUSTIN MEDICARE MEDICARE PART Sep 23, PART B [id number] Bertha FENG PATIENT (WNR) (M) B 2010 [id number] JUSTIN Selected Encounter This section includes the information on record at [place] for the Encounter. Date/Time Encounter Type Encounter Reason Provider Source Description Aug 06, 2022 HC PRO PHONE TELEPHONE PRIMARY ICD-10-CM Z71.9 LUKE MAR 02:44 PM CALL 11-20 MIN CARE Counseling, SSA A unspecified with Provider Comments: Counseling, unspecified IHE Encounter Template Text not used by [place] Assessments - Encounter Diagnoses This section includes the primary and secondary diagnoses documented for the Encounter. Date/Time Primary/Secondary Diagnosis Name Provider Source Diagnosis Aug 06, 2022 PRIMARY Counseling, LUKE MAR [facility] 02:44 PM unspecified SSA A [facility] Plan of Treatment: Future Appointments (+ 6 [...] 07, 2022 02:00 PM [facility] Nov 02, 2022 12:10 [facility] Nov 12, 2022 12:45 PM [facility]TRN M [facility] December 23, 2022 01:30 PM [facility] December 28, 2022 01:30 PM AMBULATORY - PSYCHIATRY [facility] Active, Pending, and Scheduled Orders This section includes a listing of several types of active, pending, and scheduled orders, including clinic medications orders, diagnostic test orders, procedure orders and consult orders; where the start date of the order is 45 days before the date of the Encounter or 45 days after the date of the Encounter. The data comes from all [place] treatment [facility]. Test Date/Time Test Type Test Details Facility Name Jun 24, 2022 08:49 AM Consult Order [facility] W STRN CARE-DENTAL [facility] SPECIALTY Cons Industrial Real Estate Agent's Choice Jul 06, 2022 05:16 PM Consult Order [facility] CNTRL W STRN CARE-DENTAL GENERAL [facility] Cons Industrial Real Estate Agent's Choice Aug 31, 2022 12:00 AM Laboratory - Chemistry CBC AND DIFF (AUTO) [place] CN[facility]L WSTRN Order BLOOD (LAV[facility]BLOOD) [facility] Aug 31, 2022 12:00 AM Laboratory - Chemistry BNP (Natriuretic [facility] Order Peptide Brain) [facility] (LAV-[facility]) SP Aug 31, 2022 12:00 AM Laboratory - Chemistry PT & INR (PROTIME) [place] [facility] WSTRN Order BLOOD (BLUE-PLASMA) [facility] SP Aug 31, 2022 12:00 AM Laboratory - Chemistry PTT BLOOD [place] [facility] W[place] Order (BLUE-PLASMA) SP [facility] Sep 09, 2022 12:00 AM Laboratory - Chemistry PT & INR (COUMADIN) [facility] Order BLOOD (BLUE-PLASMA) [facility] SP ONCE Lab Results: +/- 30 [...] Reference Range Comment Aug 26, 2022 12:58 [place] CN[facility] WSTRN PT & INR (COUMADIN) Specimen Type: PLASMA PM [facility] No comment enter ed. Ordering Provid er: MAT TAMAYO Report Released Date/Time: Aug 19, 2022 03:07 PM Reporting Lab: [facility] [address] [address] Performing Lab: [facility] [address] [facility] [address] INR 2.5 PROTIME 29.3 H 10.0-13.1 Aug 19, 2022 01:52 [place] [facility] TRN PT & INR (COUMADIN) Specimen Type: PLASMA PM [facility] No comment enter ed. Ordering Provid er: CIRILO HUNTER Report Released Date/Time: Jul 08, 2022 01:54 PM Reporting Lab: [facility] [place] [facility] [address] [address] Performing Lab: [place] [facility] [facility] [address] [facility] [address] INR 3.7 PROTIME 43.8 H 10.0-13.1 Jul 08, 2022 10:56 AM [facility] PT & INR (COUMADIN) Speci men Type: PLASMA No comment enter ed. Ordering Provid er: SUDHEER KEENAN Report Released Date/Time: Jun 11, 2022 04:07 PM Reporting Lab: [place] CNTR [place] [facility] [address] [address] Performing Lab: [place] CNTR W[facility]N [facility] [address] [address] INR 2.7 PROTIME 31.6 H 10.0-13.1 Social [...] 30, 2022 01:00 PM VA-TOBACCO FORMER USER [place] [facility]TR[facility] [place] [facility] Tobacco Use History This section includes a history of the smoking, or tobacco- related health factors, that were collected on or before the date of the Encounter. The data comes from the [place] facility where the Encounter took place. Date/Time Smoking Status/Tobacco Comment Facility Use Apr 30, 2022 01:00 VA-TOBACCO QUIT 15 YRS OR [facility]N PM MORE [place] [facility] Mar 20, 2021 01:00 VA-TOBACCO FORMER USER [facility] CNT RL WSTRN PM [place] [facility] Mar 20, 2021 01:00 VA-TOBACCO QUIT 15 YRS OR [facility] WSTR[facility] PM MORE [place] [facility] January 17, 2020 11:33 VA-TOBACCO FORMER USER [facility] CNT RL WSTRN AM [place] [facility] January 17, 2020 11:33 VA-TOBACCO QUIT 15 YRS OR [facility] WSTRN AM MORE [place] [facility] Nov 23, 2018 01:22 VA-TOBACCO FORMER USER VA CNT RL WSTRN PM [place] [facility] Nov 23, 2018 01:22 VA-TOBACCO QUIT 15 YRS OR [facility] WSTRN PM [facility] January 18, 2018 12:53 QUIT TOBACCO USE 1-7 [facility] CN[facility]L WSTRN PM YEARS AGO PT STATES HE STOPP 4 YR AGO [place] [facility] Dec 09, 2016 01:07 QUIT TOBACCO USE > 7 [facility] WSTRN PM YEARS AGO [place] [facility] Nov 11, 2015 01:13 QUIT TOBACCO USE > 7 [facility] WSTRN PM YEARS AGO [place] [facility] Nov 19, 2004 03:17 HISTORY OF SMOKING [facility] W STRN PM quit 30 yrs [facility] Aug 10, 2003 01:03 HISTORY OF SMOKING [facility] [place] STR[facility] PM [place] [facility] Apr 12, 2002 02:36 QUIT TOBACCO USE > 7 [facility] CNTRL WSTRN PM YEARS AGO [facility] Encounter Notes: All associated encounter notes This section contains the clinical notes associated to the Encounter. Date/Time Encounter Note(s) Provider Source Aug 06, 2022 02:44 PM NURSING NOTE: AUBREE MAR [facility] WSTRN LOCAL TITLE: NURSING/TELEPHONE [facility] STANDARD TITLE: NURSING NOTE DATE OF NOTE: AUG 06, 2022@14:44 ENTRY DATE: AUG 06, 2022@14:44:35 AUTHOR: AUBREE MAR EXP COSIGNER: URGENCY: STATUS: COMPLETED F: Return call D: Triage Summary Nurse Summary: [place] calling due to le ft shoulder pain that he has had for a while, awaiting surgery date out of [facility] at this time. [place] is requesting pain medication. A: Contacted . He states that if he canno t get pain medication from [facility] that he will schedule an appt to be seen in primary care. R: was grateful for the call. /yeimy/ AUBREE MAR Registered Nurse Signed: 08/06/2022 14:50
--- OUTSIDE RECORDS SUMMARY | 2022-11-03 05:48 | XMS_ITS | Encounter Summary ---
:1945 Author Organization Department [facility] rs Address [address] [place] [id number] Support Name Relationship Address Phone EJ SCHULTE Unavailable [address] [place] [address] EJ SCHULTE Unavailable [address] [place] [address] Insurance Providers: All historical and current Section [...] Name to Policy Number Spann WILVER MESSERT [facility] Aug 23, [id number] [phone] POLY ON,J PATIENT ION 2015 7 3 JUSTIN GEHA FEHB PREFERRED MANUEL Aug 23, [id number] [phone] AKUA PHOENIXJ PATIENT PROVIDER MICHELA 2012 ALTH 7 136 JUSTIN ORGANIZAT GOV ION (PPO) GEHA FEHB PREFERRED GEHA Aug 23, [id number] [phone] AKUA RDON,J PATIENT PROVIDER DAVID 2012 2 7 136 JUSTIN ORGANIZAT CTION ION (PPO) DENT MEDICARE MEDICARE PART Sep 23, PART B [id number] Bertha FENG PATIENT (WNR) (M) B [id number] 2 JUSTIN MEDICARE MEDICARE PART Sep 23, PART A [id number] Bertha FENG PATIENT (WNR) (M) A 2010 MJ 2 JUSTIN Selected Encounter This section includes the information on record at [place] for the Encounter. Date/Time Encounter Type Encounter Reason Provider Source Description Aug 06, 2022 10:55 Outpatient TELEPHONE TRIAGE SID MILLER AM Encounter IHE Encounter Template Text not used by [place] Plan of Treatment: Future Appointments (+ 6 months) and Future Tests (+/- 45 days) The Plan of Treatment section includes future care activities for the patient [facility] [place] [facility]. This section includes future appointments and future orders which are active, pending orscheduled.Future Appointments This section includes appointments that were scheduled to occur 6 months from the date of the Encounter, up to a maximum of 20 appointments. The data comes from all [facility]. Appointment Date/Time Appointment Type Appointment Facili ty Name Aug 07, 2022 02:00 PM AMBULATORY MEDICINE [facility] Nov 02, 2022 12:10 PM AMBULATORY MEDICINE [facility] Nov 12, 2022 12:45 PM [facility]UL[facility]ORY [facility] December 23, 2022 01:30 PM AMBULATORY - MEDICINE [facility] December 28, 2022 01:30 PM AMBULATORY - PSYCHIATRY [facility] Active, Pending, and Scheduled Orders This section includes a listing of several types of active, pending, and scheduled orders, including clinic medications orders, diagnostic test orders, procedure orders and consult orders; where the start date of the order is 45 days before the date of the Encounter or 45 days after the date of the Encounter. The data comes from all [facility]. Test Date/Time Test Type Test Details Facility Name Jun 24, 2022 08:49 AM Consult Order [facility] CARE-DENTAL [place] [facility] SPECIALTY Cons [employer] Machine Operator's Choice Jul 06, 2022 05:16 PM Consult Order [facility] Cons [employer] Machine Operator's Choice Aug 31, 2022 12:00 AM Laboratory - Chemistry CBC AND DIFF (AUTO) [facility] Order BLOOD (LAV-BLOOD) SP [facility] Aug 31, 2022 12:00 AM Laboratory - Chemistry PT & INR (PROTIME) [facility] Order BLOOD (BLUE-PLASMA) [facility] SP Aug 31, 2022 12:00 AM Laboratory - Chemistry BNP ([facility]atri[facility]tic [facility] Order Peptide Brain) BLOOD [facility] (LAV-PLASMA) SP Aug 31, 2022 12:00 AM Laboratory - Chemistry PTT BLOOD [facility] Order (BLUE-PLASMA) [facility] Sep 09, 2022 12:00 AM Laboratory - Chemistry PT & INR (COUMADIN) [facility] WSTRN Order BLOOD (BLUE-PLASMA) [facility] SP ONCE Lab Results: +/- 30 days of the encounter This section includes the Chemistry and Hematology Lab Results on record with [place] for the patient. Radiology Reports and Pathology Reports are provided separately, in subsequent sections.Lab Results This section contains the Chemistry/Hematology Results that were resulted 30 days before or 30 daysafter the date of the Encounter. Date/Time Source Result Type Result - Unit Interpretation Reference Range Comment Aug 26, 2022 12:58 [facility] PT & INR (COUMADIN) Specimen Type: PLASMA PM [facility] No comment enter ed. Ordering Provid er: MAT TAMAYO Report Released Date/Time: Aug 19, 2022 03:07 PM Reporting Lab: [facility] [address] [facility] [address] Performing Lab: [facility] [address] [facility] [address] INR 2.5 PROTIME 29.3 H 10.0-13.1 Aug 19, 2022 01:52 [facility] PT & INR (COUMADIN) Specimen Type: PLASMA PM [facility] No comment enter ed. Ordering Provid er: CIRILO HUNTER Report Released Date/Time: Jul 08, 2022 01:54 PM Reporting Lab: [address] [address] Performing Lab: [facility] [address] [facility] [address] INR 3.7 PROTIME 43.8 H 10.0-13.1 Jul 08, 2022 10:56 AM [facility] PT & INR (COUMADIN) Speci men Type: PLASMA No comment enter ed. Ordering Provid er: SUDHEER KEENAN Report Released Date/Time: Jun 11, 2022 04:07 PM Reporting Lab: [place] [facility] [address] [facility] [address] Performing Lab: [place] [facility] [address] [facility] [address] INR 2.7 PROTIME 31.6 H 10.0-13.1 Social History: Smoking Status (Most current) and Tobacco Use (All prior to encounter date) This section includes the most current, and the historical, smoking and tobacco-related health factors from the [place] facility where the Encounter took place.Current Smoking Status This section includes the most current smoking, or tobacco-related health factor, from the [place] facility where the Encounter took place. Date/Time Current Smoking Status Comment Facility Apr 30, 2022 01:00 PM VA-TOBACCO FOR[facility]ER [facility] Tobacco Use History This section includes a history of the smoking, or tobacco- related health factors, that were collected on or before the date of the Encounter. The data comes from the [place] facility where the Encounter took place. Date/Time Smoking Status/Tobacco Comment Facility Use Apr 30, 2022 01:00 VA-TOBACCO QUIT 15 YRS OR [facility]N PM MORE [place] [facility] Mar 20, 2021 01:00 VA-TOBACCO FORMER USER [facility] RL WSTRN PM [place] [facility] Mar 20, 2021 01:00 VA-TOBACCO QUIT 15 YRS OR [facility] PM MORE [place] [facility] January 17, 2020 11:33 VA-TOBACCO FORMER USER [facility] CNT RL WSTRN AM [place] [facility] January 17, 2020 11:33 VA-TOBACCO QUIT 15 YRS OR [facility] W[facility]N AM MORE [place] [facility] Nov 23, 2018 01:22 VA-TOBACCO FORMER USER [facility] CNT RL WSTRN PM [place] [facility] Nov 23, 2018 01:22 VA-TOBACCO QUIT 15 YRS OR [facility] PM MORE [place] [facility] January 18, 2018 12:53 QUIT TOBACCO USE 1-7 [facility] WSTRN PM YEARS AGO PT STATES HE STOPP 4 YR AGO [place] [facility] Dec 09, 2016 01:07 QUIT TOBACCO USE > 7 [facility]STRN PM [facility] Nov 11, 2015 01:13 QUIT TOBACCO USE > 7 [facility] Nov 19, 2004 03:17 HISTORY OF SMOKING [facility] W STRN PM [facility] 30 yrs [facility] Aug 10, 2003 01:03 HISTORY OF SMOKING [facility] [place] PM [place] [facility] Apr 12, 2002 02:36 QUIT TOBACCO USE > 7 [facility] WSTRN PM YEARS AGO [facility] Encounter Notes: All associated encounter notes This section contains the clinical notes associated to the Encounter. Date/Time Encounter Note(s) Provider Source Aug 06, 2022 10:55 AM RN PROGRESS NOTE: SID MILLER [facility] LOCAL TITLE: CCC: CLINICAL TRIAGE [facility] STANDARD TITLE: RN PROGRESS NOTE DATE OF NOTE: AUG 06, 2022@10:55:09 ENTRY DATE: AUG 06, 2022@10:55:09 AUTHOR: SID MILLER EXP COSIGNER: URGENCY: STATUS: COMPLETED Patient Demographics Patient Name: KAMLA SCHULTE Patient Primary Address: [address] [place] [address] <>[place] [address] Patient : 1945 SSN: [id number] Patient Age: 76 Caller/Recipient Relation to Patient: Self Emergency Contactx: EJ SCHULTE Triage Summary Nurse Summary: calling due to le ft shoulder pain that he has had for a while, awaiting surgery date out of [facility] at this time. [facility] is requesting pain medication. Pain Score: 8 (Severe Pain) Conducted triage/discussed symptoms Utilized the Triage Tool: Yes Chief Complaint: Shoulder Pain (one shoulder) System WHEN: Within 8 Hours Nurse's Recommendation / WHEN: Within 8 Hours System WHERE: Urgent care center Nurse's Recommendation / WHERE: Urgent Non-VA Patient Disposition Patient/Caregiver agrees to plan of care: Yes Patient WHERE: Urgent Care non-VA Patient WHEN: Within 8 hours Patient is Urgent or Emergent Summary of Actions Referred patient to emergency services Instructed patient to go to Urgent Care Clinical Contact Center Codes Clinic/Location: V1 CWM PHONE CCC RN TXCC Triage Complete Triage Note: Phone Triage Elena, 06 Aug 2022 15:49:02 +0000 [facility] Demographics 76 y/o Male Results CC: Shoulder Pain (one shoulder) Software suggested: Within 8 Hours Software suggested follow-up location: Urgent c are center, consider virtual care Values and Measures Duration of CC: 5 Years Positive Responses HPI: shoulder pain, severe HPI: shoulder pain, worsening VS: temperature not taken Negative Responses Denies: HPI: chest pain, with shoulder pain Denies: HPI: diaphoresis, with shoulder pain Denies: HPI: dyspnea, with shoulder pain Denies: HPI: lightheadednes s and shoulder pain, duration longer than 5 minutes Denies: HPI: nausea and shoulder pain, duration longer than 5 minutes Denies: HPI: neck or jaw pain with shoulder lena n Denies: HPI: palpitations, with shoulder pain Denies: HPI: shoulder injury, within past 2 day s Denies: HPI: shoulder swelling, with shoulder p ain Denies: HPI: skin erythema, shoulder Denies: HPI: skin lump, swollen, painful, over the shoulder Denies: HPI: skin swelling, shoulder, worsening Denies: HPI: skin tenderness, shoulder, worseni ng Denies: HPI: syncope, with shoulder pain Denies: HPI: weakness, with shoulder pain, dura tion longer than 5 minutes Denies: PMH: angina Denies: PMH: heart attack Denies: PMH: rheumatoid arthritis Denies: PMH: systemic lupus erythematosus Denies: PSH: shoulder surgery, within past week /yeimy/ SID MILLER [id number] Signed: 08/06/2022 10:55 Receipt Acknowledged By: * AWAITING SIGNATURE * ANTONETTE LINDSAY * AWAITING SIGNATURE * AUBREE MAR
--- OUTSIDE RECORDS SUMMARY | 2022-11-03 05:49 | XMS_ITS | Encounter Summary ---
:[address] [facility] rs Address [address] [place] [id number] Support Name Relationship Address Phone EJ SCHULTE Unavailable [address] [place] [address] EJ SCHULTE Unavailable [address] [place] [address] Insurance Providers: All historical and current Section [...] Name to Policy Number Spann WILVER [facility] Aug 23, [id number] [phone] POLY NIELSON,J PATIENT ION 2015 7 3 JUSTIN GEHA FEHB PREFERRED [facility] Aug 23, [id number] [phone] Bertha RICHARDSON PATIENT PROVIDER AL 2012 ALTH 7 136 JUSTIN ORGANIZAT GOV ION (PPO) GEHA FEHB PREFERRED GEHA Aug 23, [id number] [phone] AKUA LIZETT,J PATIENT PROVIDER DAVID 2012 2 7 136 JUSTIN ORGANIZAT CTION ION (PPO) DENT MEDICARE MEDICARE PART Sep 23, PART B [id number] Bertha FENG PATIENT (WNR) (M) B 2010 [id number] 2 JUSTIN MEDICARE MEDICARE PART Sep 23, PART A [id number] Bertha FENG PATIENT (WNR) (M) A 2010 [id number] 2 JUSTIN Selected Encounter This section includes the information on record at [place] for the Encounter. Date/Time Encounter Type Encounter Reason Provider Source Description Aug 07, 2022 02:45 Outpatient PRIMARY RODDY MAR PM Encounter CARE/MEDICINE A A IHE Encounter Template Text not used by [place] Plan of Treatment: Future Appointments (+ 6 months) and Future Tests (+/- 45 days) The Plan of Treatment section includes future care activities for the patient from all [place] treatmentfacilities. This section includes future appointments and future orders which are active, pending orscheduled.Future Appointments This section includes appointments that were scheduled to occur 6 months from the date of the Encounter, up to a maximum of 20 appointments. The data comes from all [facility]. Appointment Date/Time Appointment Type Appointment Facili ty Name Nov 02, 2022 12:10 PM AMBULATORY - MEDICINE [facility] Nov 12, 2022 12:45 PM AMBULATORY MEDICINE [facility] December 23, 2022 01:30 PM AMBULATORY - MEDICINE [facility] December 28, 2022 01:30 PM AMBULATORY - PSYCHIATRY [facility] Active, Pending, and Scheduled Orders This section includes a listing of several types of active, pending, and scheduled orders, including clinic medications orders, diagnostic test orders, procedure orders and consult orders; where the start date of the order is 45 days before the date of the Encounter or 45 days after the date of the Encounter. The data comes from all [facility]. Test Date/Time Test Type Test Details Facility Name Jun 24, 2022 08:49 AM Consult Order [facility] CARE-DENTAL [facility] Cons [facility] Jul 06, 2022 05:16 PM Consult Order [facility]-DENTAL [facility] Cons Strip [facility] Aug 31, 2022 12:00 AM Laboratory - Chemistry BNP (Natriuretic [facility] Order Peptide Brain) BLOOD [facility] (LAV-PLASMA) SP Aug 31, 2022 12:00 AM Laboratory - Chemistry PTT BLOOD [facility] Order (BLUE-PLASMA) SP [facility] Aug 31, 2022 12:00 AM Laboratory - Chemistry PT & INR (PROTIME) [facility] Order BLOOD (BLUE-PLASMA) [facility] SP Aug 31, 2022 12:00 AM Laboratory - Chemistry [facility] DIFF (AUTO[facility] ([facility]V-BLOOD) SP [facility] Sep 09, 2022 12:00 AM Laboratory - Chemistry PT & INR (COUMADIN) [facility] Order BLOOD (BLUE-PLASMA) [facility] SP ONCE Lab Results: +/- 30 days of the encounter This section includes the Chemistry and Hematology Lab Results on record with [place] for the patient. Radiology Reports and Pathology Reports are provided separately, in subsequent sections.Lab Results This section contains the Chemistry/Hematology Results that were resulted 30 days before or 30 daysafter the date of the Encounter. Date/Time Source Result Type Result - Unit Interpretation Reference Range Comment Aug 26, 2022 12:58 [facility] (COU[facility]ADIN) Specimen Type: [facility]ASMA PM [facility] No comment enter ed. Ordering Provid er: MAT TAMAYO Report Released Date/Time: Aug 19, 2022 03:07 PM Reporting Lab: [facility] [address] [facility] [address] Performing Lab: [facility] [address] [facility] [address] INR 2.5 PROTIME 29.3 H 10.0-13.1 Aug 19, 2022 01:52 [facility] PT & INR (COUMADIN) Specimen Type: PLASMA PM [facility] No comment enter ed. Ordering Provid er: CIRILO HUNTER Report Released Date/Time: Jul 08, 2022 01:54 PM Reporting Lab: [facility] [address] [address] Performing Lab: [facility] [address] [facility] [address] INR 3.7 PROTIME 43.8 H 10.0-13.1 Social History: Smoking Status (Most current) and Tobacco Use (All prior to encounter date) This section includes the most current, and the historical, smoking and tobacco-related health factors from the [place] facility where the Encounter took place.Current Smoking Status This section includes the most current smoking, or tobacco-related health factor, from the [place] facility where the Encounter took place. Date/Time Current Smoking Status Comment Facility Apr 30, 2022 01:00 PM VA-TOBACCO FORMER USER [facility] [place] [facility] Tobacco Use History This section includes a history of the smoking, or tobacco- related health factors, that were collected on or before the date of the Encounter. The data comes from the [place] facility where the Encounter took place. Date/Time Smoking Status/Tobacco Comment Facility Use Apr 30, 2022 01:00 VA-TOBACCO QUIT 15 YRS OR [facility] PM MORE [place] [facility] Mar 20, 2021 01:00 VA-TOBACCO FORMER USER [facility] PM [place] [facility] Mar 20, 2021 01:00 VA-TOBACCO QUIT 15 YRS OR [facility] PM MORE [place] [facility] January 17, 2020 11:33 VA-TOBACCO FORMER USER [facility] AM [place] [facility] January 17, 2020 11:33 VA-TOBACCO QUIT 15 YRS OR [facility] AM MORE [place] [facility] Nov 23, 2018 01:22 VA-TOBACCO FORMER USER [facility] PM [place] [facility] Nov 23, 2018 01:22 VA-TOBACCO QUIT 15 YRS OR [facility] PM MORE [place] [facility] January 18, 2018 12:53 QUIT TOBACCO USE 1-7 [facility] PM YEARS AGO PT STATES HE STOPP 4 YR AGO [place] [facility] Dec 09, 2016 01:07 QUIT TOBACCO USE > 7 [facility] PM YEARS AGO [place] [facility] Nov 11, 2015 01:13 QUIT TOBACCO USE > 7 [facility] PM YEARS AGO [place] [facility] Nov 19, 2004 03:17 HISTORY OF SMOKING [facility] PM quit 30 yrs ago [place] [facility] Aug 10, 2003 01:03 HISTORY OF SMOKING [facility] PM [place] [facility] Apr 12, 2002 02:36 QUIT TOBACCO USE > 7 [facility] PM YEARS AGO [facility] Encounter Notes: All associated encounter notes This section contains the clinical notes associated to the Encounter. Date/Time Encounter Note(s) Provider Source Aug 07, 2022 02:45 PM PRIMARY CARE SECURE MESSAGING: [place] [facility] LOCAL TITLE: PRIMARY CARE SECURE MESSAGING [facility] TITLE: PRIMARY CARE SECURE MESSAGING DATE OF NOTE: AUG 07, 2022@14:45 ENTRY DATE: AUG 07, 2022@14:45:47 AUTHOR: AUBREE MAR EXP COSIGNER: URGENCY: STATUS: COMPLETED ------Original Message Sent: 08/06/2022 07:43 PM ET From: KAMLA SCHULTE To: [facility] Subject: Appointment:Shoulder records Attachments: TR2.pdf (509.02 KB), TR1 (1 ).pdf (751.85 KB) These are some of my recent shoulder records. ------Original Message Sent: 08/07/2022 02:45 PM ET From: AUBREE MAR To: KAMLA SCHLUTE Subject: Appointment:Shoulder records Good afternoon, I have printed them out and sent them to our [facility] department to have them added to your record. R/S Aubree LEWIS /yeimy/ AUBREE MAR Registered Nurse Signed: 08/07/2022 14:45
--- OUTSIDE RECORDS SUMMARY | 2022-11-03 05:49 | XMS_ITS | Encounter Summary ---
:1945 Author Organization [facility] rs Address [address] [place] [id number] Support Name Relationship Address Phone EJ SCHULTE Unavailable [address] [place] [address] EJ SCHULTE Unavailable [address] [place] [address] Insurance Providers: All historical and current Section [...] Name to Policy Number Spann WILVER [facility] Aug 23, [id number] [phone] POLY ON,J PATIENT ION 2015 7 3 JUSTIN GEHA FEHB PREFERRED [facility] Aug 23, [id number] [phone] Bertha RICHARDSON PATIENT PROVIDER MICHELA 2012 ALTH 7 136 JUSTIN ORGANIZAT GOV ION (PPO) GEHA FEHB PREFERRED GEHA Aug 23, [id number] [phone] AKUA LIZETT,J PATIENT PROVIDER DAVID 2012 2 7 136 JUSTIN ORGANIZAT CTION ION (PPO) DENT MEDICARE MEDICARE PART Sep 23, PART A [id number] Bertha FENG PATIENT (WNR) (M) A 2010 [id number] 2 JUSTIN MEDICARE MEDICARE PART Sep 23, PART B [id number] Bertha FENG PATIENT (WNR) (M) B 2010 [id number] 2 JUSTIN Selected Encounter This section includes the information on record at [place] for the Encounter. Date/Time Encounter Type Encounter Reason Provider Source Description Aug 07, 2022 OFFICE O/P EST PRIMARY ICD-10-CM M87.822 HASEEB BLANC 02:00 PM SF 10-19 MIN CARE/MEDICINE Other [place] osteonecrosis, left humerus with Provider Comments: Osteonecrosis (SNOMED CT [id number]) IHE Encounter Template Text not used by [place] Assessments - Encounter Diagnoses This section includes the primary and secondary diagnoses documented for the Encounter. Date/Time Primary/Secondary Diagnosis Name Provider Source Diagnosis Aug 07, 2022 PRIMARY Other HASEEB BLANC [facility] 02:02 PM osteonecrosis, [place] [facility] left humerus Plan of Treatment: Future Appointments (+ 6 months) and Future Tests (+/- 45 days) The Plan of Treatment section includes future care activities for the patient from all [place] [facility] [place]. This section includes future appointments and future orders which are active, pending orscheduled.Future Appointments This section includes appointments that were scheduled to occur 6 months from the date of the Encounter, up to a maximum of 20 appointments. The data comes from all [place] treatment facilities. Appointment Date/Time Appointment Type Appointment Facili ty Name Nov 02, 2022 12:10 PM [facility] Nov 12, 2022 12:45 [facility] December 23, 2022 01:30 PM [facility] December 28, 2022 01:30 PM AMBULATORY - PSYCHIATRY [facility] Active, Pending, and Scheduled Orders This section includes a listing of several types of active, pending, and scheduled orders, including clinic medications orders, diagnostic test orders, procedure orders and consult orders; where the start date of the order is 45 days before the date of the Encounter or 45 days after the date of the Encounter. The data comes from all [place] treatment [facility]. Test Date/Time Test Type Test Details Facility Name Jun 24, 2022 08:49 AM Consult Order [facility] CARE-DENTAL [facility] Cons Manager [facility] Jul 06, 2022 05:16 PM Consult Order [facility] Cons Manager [facility] Aug 31, 2022 12:00 AM Laboratory - Chemistry CBC AND DIFF (AUTO) [place] [facility] Order BLOOD (LAV-BLOOD) SP [facility] Aug 31, 2022 12:00 AM Laboratory - Chemistry PT & INR (PROTIME) [place] [facility] Order BLOOD (BLUE-PLASMA) [facility] Aug 31, 2022 12:00 AM Laboratory - Chemistry PTT BLOOD [place] [facility] Order (BLUE-PLASMA) SP [facility] Aug 31, 2022 12:00 AM Laboratory - Chemistry BNP (Natriuretic [place] [facility] Order Peptide Brain) BLOOD [facility] (LAV-PLASMA) SP Sep 09, 2022 12:00 AM Laboratory - Chemistry PT & INR (COUMADIN) [facility] B[facility]OD (BLUE-PLASMA) [facility] SP ONCE Lab Results: +/- 30 [...] Reference Range Comment Aug 26, 2022 12:58 [place] [facility] PT & INR (COUMADIN) Specimen Type: PLASMA PM [facility] No comment enter ed. Ordering Provid er: MAT TAMAYO Report Released Date/Time: Aug 19, 2022 03:07 PM Reporting Lab[facility] [address] [address] Performing Lab: [facility] [address] [facility] [address] INR 2.5 PROTIME 29.3 H 10.0-13.1 Aug 19, 2022 01:52 [place] [facility] PT & INR (COUMADIN) Specimen Type: PLASMA PM [facility] No comment enter ed. Ordering Provid er: CIRILO HUNTER Report Released Date/Time: Jul 08, 2022 01:54 PM Reporting Lab: [facility] [place] [facility] [address] [address] Performing Lab: [place] [facility] [facility] [address] [address] INR 3.7 PROTIME 43.8 H 10.0-13.1 Social [...] PM VA-TOBACCO FORMER USER [place] [facility] [facility] Tobacco Use History This section includes [...] Nov 19, 2004 03:17 HISTORY OF SMOKING [place] CN[facility] W STRN PM [facility] yrs [facility] Aug 10, 2003 01:03 HISTORY OF SMOKING [place] [facility] Apr 12, 2002 02:36 QUIT TOBACCO USE > 7 [place] CNTRL WSTRN PM YEARS AGO [facility] Encounter Notes: All associated encounter notes This section contains the clinical notes associated to the Encounter. Date/Time Encounter Note(s) Provider Source Aug 07, 2022 01:52 PHYSICIAN OFFICE SERVICES ASSOCIATE NOTE: HASEEB BLANC [place] [facility] PM LOCAL TITLE: OCTAVIANO NOTE [facility] STANDARD TITLE: PHYSICIAN OFFICE SERVICES ASSOCIATE NOTE DATE OF NOTE: AUG 07, 2022@13:52 ENTRY DATE: AUG 07, 2022@13:52:22 AUTHOR: HASEEB BLANC EXP COSIGNER: URGENCY: STATUS: COMPLETED Medication Reconciliation: Outpatient: Has the patient been taking medications as docu mented in the EMLR? YES: The patient has been taking medications as documented in the EMLR. Essential Medication List for Review used to co mplete this medication reconciliation. INCLUDED IN THIS LIST: Alphabetical list of act pierre outpatient prescriptions dispensed from this [place] (local) an d dispensed from another [place] [...] whether with a VA or non-VA provider. Alison presented with CT results for his left s houlder pain with results of osteonecrosis of the left humerus. Alison was told he could come in to be seen for pain control. He admits his had a hip fracture last year and there were two oxycodone left over which he used and found effective for his pain. Alison is not scheduled to see his orthopedic until August 27, 2022 and i s requesting something for pain. I reviewed his medications and discussed the syn ergistic effects of benzodiazepine and zolpidem in conjuncti on with use of narcotics. He states he very rarely uses the lorazepam and will not take the oxycodone/apap with his night medication. MassPat has been verified. Left shoulder pain secondary to osteonecrosis Le ft humerus P: oxycodone / apap 5/325 i po [id number] pain #30 NR. F/U PCP as discussed. /yeimy/ HASEEB SIDDIQUI MS,PAMolly PHYSICIAN OFFICE SERVICES ASSOCIATE Signed: 08/07/2022 14:07 Receipt Acknowledged By: 08/07/2022 14:08 /yeimy/ Leon Harley DNP, FN P-BC, CNL Primary Care Nurse Practitioner for BOYD GROSS Aug 07, 2022 01:45 ACCOUNTING OF DISCLOSURES NOTE: HASEEB BLANC [place] [facility] PM LOCAL TITLE: STATE PRESCRIPTION DRUG MONITORING PROGRAM [place] [facility] STANDARD TITLE: ACCOUNTING OF DISCLOSURES NOTE DATE OF NOTE: AUG 07, 2022@13:45:50 ENTRY DATE: AUG 07, 2022@13:45:50 AUTHOR: HASEEB BLANC EXP COSIGNER: URGENCY: STATUS: COMPLETED This PDMP query was submitted by Haseeb Blanc. The clinical justification for this PDMP query i s to review controlled substances prescribed outside of the [facility], and any additional information that may become available, as an important compo nent of standard clinical care, and in accordance with [facility] policy. Patient information was shared with the PDMP [employer]. No prescription(s) for controlled substances out side the [facility] were found in the last 90 days. /yeimy/ HASEEB SIDDIQUI MS,STEPHANIE PHYSICIAN OFFICE SERVICES ASSOCIATE Signed: 08/07/2022 14:08
--- OUTSIDE RECORDS SUMMARY | 2022-11-03 05:50 | XMS_ITS | Encounter Summary ---
:1945 Author Organization [facility] rs Address [address] [place] [address] Support Name Relationship Address Phone EJ SCHULTE Unavailable [address] [place] [address] EJ SCHULTE Unavailable [address] [place] [address] Insurance Providers: All historical and current Section [...] Name to Policy Number Spann WILVER MESSERT [facility] Aug 23, [id number] [phone] POLY ON,J PATIENT ION 2015 7 3 JUSTIN GEHA FEHB PREFERRED [facility] Aug 23, [id number] [phone] Bertha RICHARDSON PATIENT PROVIDER AL 2012 ALTH 7 136 JUSTIN ORGANIZAT GOV ION (PPO) GEHA FEHB PREFERRED GEHA Aug 23, [id number] [phone] [address]ON,J PATIENT PROVIDER DAVID 2012 2 7 136 JUSTIN ORGANIZAT CTION ION (PPO) DENT MEDICARE MEDICARE PART Sep 23, PART A [id number] Bertha FENG PATIENT (WNR) (M) A [id number] 2 JUSTIN MEDICARE MEDICARE PART Sep 23, PART B [id number] Bertha FENG PATIENT (WNR) (M) B 2010 [id number] JUSTIN Selected Encounter This section includes the information on record at [place] for the Encounter. Date/Time Encounter Type Encounter Reason Provider Source Description Aug 26, 2022 HC PRO PHONE TELEPHONE/ANCILLA ICD-10-CM Z51.81 Charlene TAMAYO 02:24 PM CALL 5-10 MIN RY Encounter for therapeutic drug level monitoring with Provider Comments: Therapeutic Drug Level Monitoring IHE Encounter Template Text not used by [facility] Assessments - Encounter Diagnoses This section includes the primary and secondary diagnoses documented for the Encounter. 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) MAT TAMAYO [place] [facility] 02:24 PM use of [facility] anticoagulants Aug 26, 2022 SECONDARY Presence of other [facility] PM heart-valve [place] [facility] replacement Plan of [...] 02, 2022 12:10 PM [facility] [place] [facility] Nov 12, 2022 12:45 PM [facility] [place] [facility] December 23, 2022 01:30 PM [facility] [place] [facility] December 28, 2022 01:30 PM [facility] [place] [facility] Active, Pending, and Scheduled Orders This section includes a listing of several types of active, pending, and scheduled orders, including clinic medications orders, diagnostic test orders, procedure orders and consult orders; where the start date of the order is 45 days before the date of the Encounter or 45 days after the date of the Encounter. The data comes from all [place] treatment facilities. Test Date/Time Test Type Test Details Facility Name Aug 31, 2022 12:00 AM Laboratory - Chemistry BNP ([facility]tic [facility] Peptide Brain) [facility] BLOOD (LAV-PLASMA) SP Aug 31, 2022 12:00 AM Laboratory - Chemistry PT & INR (PROTIME) [facility] Order BLOOD (BLUE-PLASMA) [facility] SP Aug 31, 2022 12:00 AM Laboratory - Chemistry CBC AND DIFF (AUTO) [facility] Order BLOOD (LAV-BLOOD) [facility] SP Aug 31, 2022 12:00 AM Laboratory - Chemistry PTT BLOOD [facility] Order (BLUE-PLASMA) SP [facility] Sep 09, 2022 12:00 AM Laboratory - Chemistry PT & INR (COUMADIN) [facility] Order BLOOD (BLUE-PLASMA) [facility] SP ONCE Lab Results: +/- 30 [...] Reference Range Comment Aug 26, 2022 12:58 [facility] PT & INR (COUMADIN) Specimen Type: PLASMA PM [facility] No comment enter ed. Ordering Provid er: MAT TAMAYO Report Released Date/Time: Aug 19, 2022 03:07 PM Reporting Lab: [facility] [address] [facility] [address] Performing Lab: [facility] [address] [facility] [address] INR 2.5 PROTIME 29.3 H 10.0-13.1 Aug 19, 2022 01:52 [facility] PT & INR (COUMADIN) Specimen Type: PLASMA PM [facility] No comment enter ed. Ordering Provid er: CIRILO HUNTER Report Released Date/Time: Jul 08, 2022 01:54 PM Reporting Lab: [facility] [address] [facility] [address] Performing Lab: [facility] [place] [address] [place] [address] INR 3.7 PROTIME 43.8 H 10.0-13.1 Social [...] 30, 2022 01:00 PM VA-TOBACCO FORMER USER [place] [facility] [place] [facility] Tobacco Use History This section includes a history of the smoking, or tobacco- related health factors, that were collected on or before the date of the Encounter. The data comes from the [place] facility where the Encounter took place. Date/Time Smoking Status/Tobacco Comment Facility Use Apr 30, 2022 01:00 VA-TOBACCO QUIT 15 YRS OR [facility] PM MORE [place] [facility] Mar 20, 2021 01:00 VA-TOBACCO FORMER USER [facility] CNT RL [facility]STRN PM [place] [facility] Mar 20, 2021 01:00 VA-TOBACCO QUIT 15 YRS OR [facility] PM MORE [place] [facility] January 17, 2020 11:33 VA-TOBACCO FORMER USER VA CNT RL WSTRN AM [place] [facility] January 17, 2020 11:33 VA-TOBACCO QUIT 15 YRS OR [facility] AM MORE [place] [facility] Nov 23, 2018 01:22 VA-TOBACCO FORMER USER VA CNT RL WSTRN PM [place] [facility] Nov 23, 2018 01:22 VA-TOBACCO QUIT 15 YRS OR [facility] PM MORE [place] [facility] January 18, 2018 12:53 QUIT TOBACCO USE 1-7 [facility] PM YEARS AGO PT STATES HE STOPP 4 YR AGO [place] [facility] Dec 09, 2016 01:07 QUIT TOBACCO USE > 7 [facility] PM YEARS AGO [place] [facility] Nov 11, 2015 01:13 QUIT TOBACCO USE > 7 [facility] PM YEARS AGO [place] [facility] Nov 19, 2004 03:17 HISTORY OF SMOKING [facility] PM quit 30 yrs ago [facility] Aug 10, 2003 01:03 HISTORY OF SMOKING [place] [facility] [place] PM [facility] Apr 12, 2002 02:36 QUIT TOBACCO USE > 7 [place] [facility] [place] PM YEARS AGO [facility] Encounter Notes: All associated encounter notes This section contains the clinical notes associated to the Encounter. Date/Time Encounter Note(s) Provider Source Aug 26, 2022 02:24 PM PHARMACY MEDICATION MGT NOTE: MAT TAMAYO [place] [facility] LOCAL TITLE: PHARMACY ANTICOAGULATION NOTE [facility] STANDARD TITLE: PHARMACY MEDICATION MGT NOTE DATE OF NOTE: AUG 26, 2022@14:24 ENTRY DATE: AUG 26, 2022@14:24:36 AUTHOR: MAT TAMAYO EXP COSIGNER: URGENCY: STATUS: COMPLETED PHARMACY ANTICOAGULATION NOTE Has ADDENDA * REFERRED TO CLINIC ON: 06/14/07 PRIMARY CARE PHYSICIAN: Dr. James SHABAZZ INFORMATION: OTHER CONTACT INFORMATION: PATIENT'S PHONE #: [phone] cell (call first ) [phone] home - can speak w/ Ej per pt's verbal authorization CLINIC LOCATION: [facility] COUMADIN THERAPY INITIATED ON: 1992 PLANNED DURATION OF THERAPY: lifetime ESTIMATED STOP DATE: n/a INDICATION FOR COUMADIN: St See's valve GOAL INR: 2-3 (goal changed 09/29/13) RELEVANT HISTORY: DRUG INTERACTIONS: citalopram, lansoprazole, APA P, coenzyme Q10 Last CBC: 06/11/22 Last PCP appt: 06/25/22 RECENT DOSING HISTORY (dose in mg): DATE SUN Wed SAT INR 10/20/21 5 7.5 5 [...] 5 7.5 5 7.5 5 7.5 2.7 08/19/22 7.5 5 7.5 5 7.5 5 7.5 3.7 HOLD warfarin x1 dose then decrease to 42.5mg /wk 08/26/22 5 7.5 5 0* 5 7.5 5 2.5 *pt held one dose as instructed* *spoke with pt* CORRECT DOSE: yes, verified MISSED DOSES: held x1 dose as instructed BLEEDING: denies NEW EVENTS: denies PROCEDURES: Upcoming appt with ortho on 08/28, may need shoulder surgery. Pt will call [facility] after appt on 08/28 for update re:h olding warfarin and potential bridging. MED CHANGES: Currently taking oxycodone and tyle nol PRN. Tylenol 500mg BID PRN for shoulder pain. DIET CHANGES: pt notes he have been eating less. per prev: ~1 salad/week EtOH: ~1-2 beers a day or less - per previous no katy TOBACCO: denies use TABLETS: filled x 90 days on 06/29/22 OTHER: takes dose in AM TABLET STRENGTH: 5mg ASSESSMENT: INR is therapeutic at 2.5 (goal 2-3) . PLAN: Informed pt via telephone of his I NR result from today. Instructed pt to CONTINUE weekly warfarin dose of 42.5mg/ week, taking 5mg daily x 4 days except 7.5mg on Wed/Wed/Wed. Informed pt of his next PT /INR scheduled on 09/09/22. Pt reports he will be seeing an ortho surgeon on Monday 08/28 to discuss potential shoulder surgery n ext week. He will call [facility] for update after his appt on Wednesday. He may need to hold warfarin and brid ge with enoxaparin. Return to clinic: Aug - [facility] (2 weeks) Time spent with patient: 5 minutes EDUCATION Provided with verbal instructions: Yes Provided with written instructions: No Barriers to learning: No Readiness to learn: Yes Specific dose directions reviewed: Yes Opportunity for questions/discussion: Yes Reports understanding of instructions: Yes Further learning needs: No Provided patient education on the following: Dose INR 2.00-3.00: Therapeutic /ata Tamayo PharmD, [facility] CLINICAL PHARMACY PROVIDER Signed: 08/26/2022 14:39 Receipt Acknowledged By: 08/26/2022 14:43 /ata BOWER CPHT Clinical Retail Furniture Sales 08/28/2022 ADDENDUM STATUS: COMPLETED Spoke with patient this edinsonn ing who had Ortho apt but reports that there was not surgery date scheduled. Lona ent will call [facility] once date is scheduled and he will need to bridge. /ata BOWER CPHT Clinical Retail Furniture Sales Signed: 08/28/2022 08:45 08/31/2022 ADDENDUM STATUS: COMPLETED Patient calls to report that he will be having s houlder surgery through [facility]. Requesting 90 day history of IN Rs faxed to Dr. Zimmerman - . Patient does not have a surgery date at th is point. Once date is confirmed, patient will noti fy clinic and will set plan for holding and bridging with [facility]WH. /yeimy/ MARQUES CHOWDHURY PHARMNorbertoD., [facility] STAFF CLINICAL PHARMACIST Signed: 08/31/2022 12:06 Receipt Acknowledged By: 08/31/2022 12:17 /ata BOWER CPHT Clinical [employer] 09/09/2022 ADDENDUM STATUS: COMPLETED Spoke with patient re: adán d INR. Patient states he is having lab work done at [facility] tomorrow around 2pm and INR will be included. Patient also reports that at this time he has no surgery date . /ata BOWER CPHT Clinical [employer] Signed: 09/09/2022 15:24
--- OUTSIDE RECORDS SUMMARY | 2022-11-03 05:50 | XMS_ITS ---
:1945 Author Organization [facility] rs Address [address] [place] [address] Support Name Relationship Address Phone EJ SCHULTE Unavailable [address] [place] [address] EJ SCHULTE Unavailable [address] [place] [address] Insurance Providers: All historical and current Section [...] Name to Policy Number Spann WILVER MESSERT [facility] Aug 23, [id number] [phone] POLY ON,J PATIENT ION 2015 7 3 JUSTIN GEHA FEHB PREFERRED [facility] Aug 23, [id number] [phone] Bertha RICHARDSON PATIENT PROVIDER AL 2012 ALTH 7 136 JUSTIN ORGANIZAT GOV ION (PPO) GEHA FEHB PREFERRED GEHA Aug 23, [id number] [phone] AKUA [address]ON,J PATIENT PROVIDER DAVID 2012 2 7 136 JUSTIN ORGANIZAT CTION ION (PPO) DENT MEDICARE MEDICARE PART Sep 23, PART A [id number] Bertha FENG PATIENT (WNR) (M) A [id number] 2 JUSTIN MEDICARE MEDICARE PART Sep 23, PART B [id number] Bertha FENG PATIENT (WNR) (M) B 2010 [id number] 2 JUSTIN Selected Encounter This section includes the information on record at [place] for the Encounter. Date/Time Encounter Type Encounter Reason Provider Source Description Aug 19, 2022 HC PRO PHONE TELEPHONE/ANCILLA ICD-10-CM Z51.81 Charlene TAMAYO 02:49 PM CALL 5-10 MIN RY Encounter for therapeutic drug level monitoring with Provider Comments: Therapeutic Drug Level Monitoring IHE Encounter Template Text not used by [facility] Assessments - Encounter Diagnoses This section includes the primary and secondary diagnoses documented for the Encounter. Date/Time Primary/Secondary Diagnosis Name Provider Source Diagnosis Aug 19, 2022 PRIMARY Encounter for MAT TAMAYO [place] [facility] 02:49 PM therapeutic drug [facility] level monitoring Aug 19, 2022 SECONDARY [facility] (current) MAT TAMAYO [place] [facility] 02:49 PM use of [facility] [facility] anticoagulants Aug 19, 2022 SECONDARY Presence of other MAT T[facility]AYO [facility] 02:49 PM heart-valve [place] [facility] replacement Plan of Treatment: Future Appointments (+ 6 months) and Future Tests (+/- 45 days) The Plan of Treatment section includes future care activities for the patient from all [place] treatmentfacilities. This section includes future appointments and future orders which are active, pending orscheduled.Future Appointments This section includes appointments that were scheduled to occur 6 months from the date of the Encounter, up to a maximum of 20 appointments. The data comes from all [place] treatment facilities. Appointment Date/Time Appointment Type Appointment Facili ty Name Nov 02, 2022 12:10 PM AM[facility] [place] [facility] Nov 12, 2022 12:45 PM AMBULATORY MEDIC[facility] [place] [facility] December 23, 2022 01:30 PM [facility]ULATORY [facility] [place] [facility] December 28, 2022 01:30 PM AMBULATORY [facility] [place] [facility] Active, Pending, and Scheduled Orders This section includes a listing of several types of active, pending, and scheduled orders, including clinic medications orders, diagnostic test orders, procedure orders and consult orders; where the start date of the order is 45 days before the date of the Encounter or 45 days after the date of the Encounter. The data comes from all [place] treatment facilities. Test Date/Time Test Type Test Details Facility Name Jul 06, 2022 05:16 PM Consult [facility] Cons Computer Installation Engineer's Choice Aug 31, 2022 12:00 AM Laboratory - Chemistry PT & INR (PROTIME) [facility] Order BLOOD (BLUE-PLASMA) [facility] SP Aug 31, 2022 12:00 AM Laboratory - Chemistry CBC AND DIFF (AUTO) [facility] Order BLOOD (LAV-BLOOD) SP [facility] Aug 31, 2022 12:00 AM Laboratory - Chemistry PTT BLOOD [facility] Order (BLUE-PLASMA) SP [facility] Aug 31, 2022 12:00 AM Laboratory - Chemistry BNP (Natriuretic [facility] Order Peptide Brain) BLOOD [facility] (LAV-PLASMA) SP Sep 09, 2022 12:00 AM Laboratory - Chemistry PT & INR (COUMADIN) [facility] Order BLOOD (BLUE-PLASMA) [facility] SP ONCE Lab Results: +/- 30 [...] Reference Range Comment Aug 26, 2022 12:58 [facility] PT & INR (COUMADIN) Specimen Type: PLASMA PM [facility] No comment enter ed. Ordering Provid er: MAT TAMAYO Report Released Date/Time: Aug 19, 2022 03:07 PM Reporting Lab: [facility] [address] [facility] [address] Performing Lab: [facility] [place] [address] [facility] [address] INR 2.5 PROTIME 29.3 H 10.0-13.1 Aug 19, 2022 01:52 [facility] PT & INR (COUMADIN) Specimen Type: PLASMA PM [facility] No comment enter ed. Ordering Provid er: CIRILO HUNTER Report Released Date/Time: Jul 08, 2022 01:54 PM Reporting Lab: [facility] [place] [facility] [address] [facility] [address] Performing Lab: [place] [facility] [facility] [address] [facility] [address] INR 3.7 PROTIME 43.8 H 10.0-13.1 Social [...] 30, 2022 01:00 PM VA-TOBACCO FORMER USER [place] [facility] [place] [facility] Tobacco Use History This section includes a history of the smoking, or tobacco- related health factors, that were collected on or before the date of the Encounter. The data comes from the [place] facility where the Encounter took place. Date/Time Smoking Status/Tobacco Comment Facility Use Apr 30, 2022 01:00 VA-TOBACCO QUIT 15 YRS OR [facility] PM MORE [place] [facility] Mar 20, 2021 01:00 VA-TOBACCO FORMER USER [facility] CNT [facility]N PM [place] [facility] Mar 20, 2021 01:00 VA-TOBACCO QUIT 15 YRS OR [facility] PM MORE [place] [facility] January 17, 2020 11:33 VA-TOBACCO FORMER USER [facility] CNT RL WSTRN AM [place] [facility] January 17, 2020 11:33 VA-TOBACCO QUIT 15 YRS OR [facility] AM MORE [place] [facility] Nov 23, 2018 01:22 VA-TOBACCO FORMER USER [facility] CNT [facility] PM [place] [facility] Nov 23, 2018 01:22 VA-TOBACCO QUIT 15 YRS OR [facility] PM MORE [place] [facility] January 18, 2018 12:53 QUIT TOBACCO USE 1-7 VA [facility] W[facility] PM YEARS AGO PT STATES HE STOPP 4 YR AGO [place] [facility] Dec 09, 2016 01:07 QUIT TOBACCO USE > 7 [facility] PM YEARS AGO [place] [facility] Nov 11, 2015 01:13 QUIT TOBACCO USE > 7 [facility] PM YEARS AGO [place] [facility] Nov 19, 2004 03:17 HISTORY OF SMOKING [facility] W STR[facility] PM quit 30 yrs ago [place] [facility] Aug 10, 2003 01:03 HISTORY OF SMOKING [facility] PM [place] [facility] Apr 12, 2002 02:36 QUIT TOBACCO USE > 7 [facility] PM YEARS AGO [facility] Encounter Notes: All associated encounter notes This section contains the clinical notes associated to the Encounter. Date/Time Encounter Note(s) Provider Source Oct 07, 2022 04:49 ACCOUNTING OF DISCLOSURES NOTE: RADHA RAMIREZ [facility] PM LOCAL TITLE: STATE PRESCRIPTION DRUG MONITORING PROGRAM [facility] STANDARD TITLE: ACCOUNTING OF DISCLOSURES NOTE DATE OF NOTE: OCT 07, 2022@16:49:18 ENTRY DATE: OCT 07, 2022@16:49:18 AUTHOR: CINDY RAMIREZ EXP COSIGNER: URGENCY: STATUS: COMPLETED This PDMP query was submitted by Cindy Ramirez MD, MD. The clinical justification for this PDMP query i s to review controlled substances prescribed outside of the [facility], and any additional information that may become available, as an important compo nent of standard clinical care, and in accordance with [facility] policy. Patient information was shared with the PDMP [employer] [place]. No prescription(s) for controlled substances out side the [facility] were found in the last 90 days. /yeimy/ CINDY RAMIREZ MD STAFF PHYSICIAN Signed: 10/07/2022 16:49 Aug 19, 2022 02:49 PHARMACY MEDICATION MGT NOTE: MAT TAMAYO [place] [facility] PM LOCAL TITLE: PHARMACY ANTICOAGULATION NOTE [facility] STANDARD TITLE: PHARMACY MEDICATION MGT NOTE DATE OF NOTE: AUG 19, 2022@14:49 ENTRY DATE: AUG 19, 2022@14:50:01 AUTHOR: MAT TAMAYO EXP COSIGNER: URGENCY: STATUS: COMPLETED REFERRED TO CLINIC ON: 06/14/07 PRIMARY CARE PHYSICIAN: Dr. James SHABAZZ INFORMATION: OTHER CONTACT INFORMATION: PATIENT'S PHONE #: [phone] cell (call first ) [phone] home - can speak w/ Ej per pt's verbal authorization CLINIC LOCATION: [facility] COUMADIN THERAPY INITIATED ON: 1992 PLANNED DURATION OF THERAPY: lifetime ESTIMATED STOP DATE: n/a INDICATION FOR COUMADIN: St Ese's valve GOAL INR: 2-3 (goal changed 09/29/13) [...] x1 dose then decrease to 42.5mg /wk *spoke with pt* CORRECT DOSE: yes MISSED DOSES: denies BLEEDING: denies NEW EVENTS: denies PROCEDURES: Upcoming appt with ortho on 08/29, may need shoulder surgery MED CHANGES: Currently taking oxycodone and tyle nol PRN. Tylenol 500mg BID PRN for shoulder pain. Pt reports he plans to k eep taking tylenol. DIET CHANGES: ~1 salad/week per previous notes EtOH: ~1-2 beers a day or less - per previous no katy TOBACCO: denies use TABLETS: filled x 90 days on 06/29/22 OTHER: takes dose in AM TABLET STRENGTH: 5mg ASSESSMENT: INR is supratherapeutic at 3.7 (goal 2-3). Pt notes he is having shoulder pain and was prescr ibed oxycodone and has been taking that with tylenol 500mg BID PRN. He notes he thinks he will have t o continue taking these medications for now. Ortho appt on 08/29 to determ ine if he needs shoulder surgery. PLAN: Informed pt via telephone of his I NR result from today. Instructed pt to HOLD warfarin x1 dose tonight and then DECREASE weekly warfarin dose to 42.5mg/week, taking 5mg leslie y x 4 days except 7.5mg on Mon/Wed/Fri. Informed pt of his next PT/INR scheduled on 08/26/22. Return to clinic: Aug - [facility] (1 week) Time spent with patient: 5 minutes EDUCATION Provided with verbal instructions: Yes Provided with written instructions: No Barriers to learning: No Readiness to learn: Yes Specific dose directions reviewed: Yes Opportunity for questions/discussion: Yes Reports understanding of instructions: Yes Further learning needs: No Provided patient education on the following: Potential drug interactions , Dose INR 3.70-4.99: Not Therapeutic Supratherapeutic. Patient was counseled on the signs and symptoms of bleeding and was instructed to present to the E mergency Department should a fall occur and the patient hit his/her head. /yeimy/ Alka QuintanillaD, [facility] CLINICAL PHARMACY PROVIDER Signed: 08/19/2022 15:07 Receipt Acknowledged By: * AWAITING SIGNATURE * ZAK BOWER
[2022-11-03] MEDS: Acetaminophen 325 MG TABLET 650 MG PO ×3 (05:51→20:49)
--- OUTSIDE RECORDS SUMMARY | 2022-11-03 05:51 | XMS_ITS | Encounter Summary ---
:1945 Author Organization [facility] rs Address [address] [place] [id number] Support Name Relationship Address Phone EJ SCHULTE Unavailable [address] [place] [address] EJ SCHULTE Unavailable [address] [place] [address] Insurance Providers: All historical and current Section [...] Name to Policy Number Spann WILVER [facility] Aug 23, [id number] [phone] POLY ON,J PATIENT ION 2015 7 3 JUSTIN GEHA FEHB PREFERRED GE Aug 23, [id number] [phone] AKUA LIZETT,J PATIENT PROVIDER DAVID 2012 2 7 136 JUSTIN ORGANIZAT CTION ION (PPO) DENT GEHA FEHB PREFERRED MANUEL Aug 23, [id number] [phone] AKUA RDON,J PATIENT PROVIDER AL 2012 ALTH 7 136 JUSTIN ORGANIZAT GOV ION (PPO) MEDICARE MEDICARE PART Sep 23, PART A [id number] Bertha FENG PATIENT (WNR) (M) A 2010 [id number] 2 JUSTIN MEDICARE MEDICARE PART Sep 23, PART B [id number] Bretha FENG PATIENT (WNR) (M) B 2010 [id number] 2 JUSTIN Selected Encounter This section includes the information on record at [place] for the Encounter. Date/Time Encounter Type Encounter Reason Provider Source Description Aug 31, 2022 02:53 Outpatient PRIMARY KATIE LINDSAY PM Encounter CARE/MEDICINE IHE Encounter Template Text not used by [place] Plan of Treatment: Future Appointments (+ 6 months) and Future Tests (+/- 45 days) The Plan of Treatment section includes future care activities for the patient from all [facility] This section includes future appointments and future orders which are active, pending orscheduled.Future Appointments This section includes appointments that were scheduled to occur 6 months from the date of the Encounter, up to a maximum of 20 appointments. The data comes from all [facility] treatment [facility]. Appointment Date/Time Appointment Type Appointment Facili ty Name Nov 02, 2022 12:10 PM [facility] Nov 12, 2022 12:45 PM [facility] December 23, 2022 01:30 PM [facility] December 28, 2022 01:30 PM [facility] - [facility]CH[facility]ATRY [facility] Active, Pending, and Scheduled Orders This section includes a listing of several types of active, pending, and scheduled orders, including clinic medications orders, diagnostic test orders, procedure orders and consult orders; where the start date of the order is 45 days before the date of the Encounter or 45 days after the date of the Encounter. The data comes from all [facility]. Test Date/Time Test Type Test Details Facility Name Aug 31, 2022 12:00 AM Laboratory - Chemistry CBC AND DIFF (AUTO) [facility] Order BLOOD (LAV-BLOOD) [facility] S SP Aug 31, 2022 12:00 AM Laboratory - Chemistry PT & INR (PROTIME) [facility] Order BLOOD (BLUE-PLASMA) [facility] SP Aug 31, 2022 12:00 AM Laboratory - Chemistry PTT BLOOD [facility] Order (BLUE-PLASMA) SP [facility] Aug 31, 2022 12:00 AM Laboratory - Chemistry BNP (Natriuretic [facility] Order Peptide Brain) [facility] BLOOD (LAV-PLASMA) SP Sep 09, 2022 12:00 AM Laboratory - Chemistry PT & INR (COUMADIN) [facility] Order BLOOD (BLUE-PLASMA) [facility] [facility] SP ONCE Oct 15, 2022 12:00 AM Laboratory - Chemistry PT & INR (COUMADIN) [facility] Lab Results: +/- 30 days of the encounter This section includes the Chemistry and Hematology Lab Results on record with [place] for the patient. Radiology Reports and Pathology Reports are provided separately, in subsequent sections.Lab Results This section contains the Chemistry/Hematology Results that were resulted 30 days before or 30 daysafter the date of the Encounter. Date/Time Source Result Type Result - Unit Interpretation Reference Range Comment Aug 26, 2022 12:58 [facility] (COUMADIN) Specimen Type: PLASMA PM [facility] No comment enter ed. Ordering Provid er: MAT TAMAYO Report Released Date/Time: Aug 19, 2022 03:07 PM Reporting Lab: [facility] [place] [facility] [address] [facility] [address] Performing Lab: [facility] [place] [facility] [address] [facility] [address] INR 2.5 PROTIME 29.3 H 10.0-13.1 Aug 19, 2022 01:52 [facility] PT & INR (COUMADIN) Specimen Type: PLASMA PM [facility] [facility] No comment enter ed. Ordering Provid er: CIRILO HUNTER Report Released Date/Time: Jul 08, 2022 01:54 PM Reporting Lab: [facility] [place] [facility] [address] [facility] [address] Performing Lab: [facility] [place] [facility] [address] [facility] [address] INR 3.7 PROTIME 43.8 H 10.0-13.1 Social History: Smoking Status (Most current) and Tobacco Use (All prior to encounter date) This section includes the most current, and the historical, smoking and tobacco-related health factors from the [place] facility where the Encounter took place.Current Smoking Status This section includes the most current smoking, or tobacco-related health factor, from the [place] facility where the Encounter took place. Date/Time Current Smoking Status Comment Facility Apr 30, 2022 01:00 PM VA-TOBACCO QUIT 15 YRS OR [facility] [place] [facility] Tobacco Use History This section includes a history of the smoking, or tobacco- related health factors, that were collected on or before the date of the Encounter. The data comes from the [place] facility where the Encounter took place. Date/Time Smoking Status/Tobacco Comment Facility Use Apr 30, 2022 01:00 VA-TOBACCO QUIT 15 YRS OR [facility] PM MORE [place] [facility] Mar 20, 2021 01:00 VA-TOBACCO FORMER USER [facility] PM [place] [facility] Mar 20, 2021 01:00 VA-TOBACCO QUIT 15 YRS OR [facility] PM MORE [place] [facility] January 17, 2020 11:33 VA-TOBACCO FORMER USER [facility] AM [place] [facility] January 17, 2020 11:33 VA-TOBACCO QUIT 15 YRS OR [facility] AM MORE [place] [facility] Nov 23, 2018 01:22 VA-TOBACCO FORMER USER [facility] PM [place] [facility] Nov 23, 2018 01:22 VA-TOBACCO QUIT 15 YRS OR [facility] PM MORE [place] [facility] January 18, 2018 12:53 QUIT TOBACCO USE 1-7 [facility] PM YEARS AGO PT STATES HE STOPP 4 YR AGO [place] [facility] Dec 09, 2016 01:07 QUIT TOBACCO USE > 7 [facility] PM YEARS AGO [place] [facility] Nov 11, 2015 01:13 QUIT TOBACCO USE > 7 [facility] PM YEARS AGO [place] [facility] Nov 19, 2004 03:17 HISTORY OF SMOKING [facility] PM quit 30 yrs ago [place] [facility] Aug 10, 2003 01:03 HISTORY OF SMOKING [facility] PM [place] [facility] Apr 12, 2002 02:36 QUIT TOBACCO USE > 7 [facility] PM YEARS AGO [place] [facility] Encounter Notes: All associated encounter notes This section contains the clinical notes associated to the Encounter. Date/Time Encounter Note(s) Provider Source Sep 04, 2022 02:46 PRIMARY CARE SECURE MESSAGING: LUKE MAR [facility] PM LOCAL TITLE: PRIMARY CARE SECURE MESSAGING [facility] [facility] STANDARD TITLE: PRIMARY CARE SECURE MESSAGING DATE OF NOTE: SEP 04, 2022@14:46 ENTRY DATE: SEP 04, 2022@14:46:50 AUTHOR: AUBREE MAR EXP COSIGNER: URGENCY: STATUS: COMPLETED ------Original Message Sent: 09/03/2022 12:15 PM ET From: KAMLA SCHULTE To: Rio RAMIREZ_PRIMARY CARE_[facility] Subject: General:Surgery clearance Thanks. Can you send that information to Aguilar Bhatia at [facility] Shoulder Service. . I'm trying to get a shoulder repla cement procedure that they have diagnosed. The disturbing side is they may not take me for months. I'm desperate as I don't feel well on these pain med s. Is there anyway I can get an emergency referal to [facility] through [place]? ------Original Message Sent: 09/04/2022 02:46 PM ET From: AUBREE MAR To: KAMLA SCHULTE Subject: General:Surgery clearance Good afternoon, I will send a request to the Consult department for [facility]. R/S Aubree LEWIS /yeimy/ AUBREE MAR Registered Nurse Signed: 09/04/2022 14:46 Aug 31, 2022 02:53 PRIMARY CARE SECURE MESSAGING: KATIE LINDSAY [facility] PM LOCAL TITLE: PRIMARY CARE SECURE MESSAGING [facility] STANDARD TITLE: PRIMARY CARE SECURE MESSAGING DATE OF NOTE: AUG 31, 2022@14:53 ENTRY DATE: AUG 31, 2022@14:53:42 AUTHOR: KATIE LINDSAY EXP COSIGNER: URGENCY: STATUS: COMPLETED ------Original Message Sent: 08/31/2022 11:35 AM ET From: KAMLA SCHULTE To: Rio RAMIREZ_PRIMARY CARE_[facility] Subject: General:Surgery clearance The following regards my shoulder surgery. Can y ou respond to this with whatever info is related to my physicals there. Thanks Derrell Guerrero, It was a pleasure speaking with you on the phone . As discussed, [facility] requires that you obtain medical boone héctor through your primary care provider as well as occ ther prior to this scheduled procedure. Please see the requirements for clearance below. If the following ca n be faxed to Dr. Salas's office at [phone] this would be greatly appreciated. This should be done within three months of your procedure. Pre-Op Clearance: History and physical examination stating that the patient is medically cleared for surgery Labs: CBC and Differential, BMP, PT-INR, PTT within 90s day prior to procedure ECG/EKG within 6 months prior to procedure If you are prescribed a blood thinner, your card iologist will need to manage this medication and tell you when to stop taking it before surgery. We ask that your occ ther also inclu ania the date of which it should be stopped in their clearance letter to us. Thank you and please reach out with any question s or concerns. Best regards, Sandrita Bhatia CNP Orthopedic Shoulder Service [facility] [address] [place] [address], [address] [place] [id number] ------Original Message Sent: 08/31/2022 02:53 PM ET From: KATIE LINDSAY To: KAMLA SCHULTE Subject: General:Surgery clearance When is the surgery scheduled for? I will enter the labs to be done at any time. Depending on the date whether or not you n eed to see Dr. Ramirez. Katie /yeimy/ KATIE LINDSAY LPN LICENSED PRACTICAL NURSE Signed: 08/31/2022 14:53
--- OUTSIDE RECORDS SUMMARY | 2022-11-03 05:51 | XMS_ITS | Encounter Summary ---
:1945 Author Organization [facility] rs Address [address] [place] [address] Support Name Relationship Address Phone EJ SCHULTE Unavailable [address] [place] [address] EJ SCHULTE Unavailable [address] [place] [address] Insurance Providers: All historical and current Section [...] [facility] Aug 23, [id number] [phone] POLY ON,J PATIENT ION 2015 7 3 JUSTIN GEHA FEHB PREFERRED [facility] Aug 23, [id number] [phone] Bertha RICHARDSON PATIENT PROVIDER AL 2012 ALTH 7 136 JUSTIN ORGANIZAT GOV ION (PPO) GEHA FEHB PREFERRED GEHA Aug 23, [id number] [phone] AKUA KARLOSON,J PATIENT PROVIDER DAVID 2012 2 7 136 JUSTIN ORGANIZAT CTION ION (PPO) DENT MEDICARE MEDICARE PART Sep 23, PART A [id number] Bertha FENG PATIENT (WNR) (M) A [id number] 2 JUSTIN MEDICARE MEDICARE PART Sep 23, PART B [id number] Bertha FENG PATIENT (WNR) (M) B 2010 [id number] JUSTIN Selected Encounter This section includes the information on record at [place] for the Encounter. Date/Time Encounter Type Encounter Reason Provider Source Description Aug 28, 2022 HC PRO PHONE TELEPHONE PRIMARY ICD-10-CM Z71.9 LUKE MAR 08:49 AM CALL 11-20 MIN CARE Counseling, SSA A unspecified with Provider Comments: Counseling, unspecified IHE Encounter Template Text not used by [place] Assessments - Encounter Diagnoses This section includes the primary and secondary diagnoses documented for the Encounter. Date/Time Primary/Secondary Diagnosis Name Provider Source Diagnosis Aug 28, 2022 PRIMARY Counseling, LUKE MAR [facility] 08:49 AM unspecified SSA A [facility] Plan of Treatment: Future Appointments (+ 6 months) and Future Tests (+/- 45 days) The Plan of Treatment section includes future care activities for the patient from all [place] [facility] This section includes future appointments and future orders which are active, pending orscheduled.Future Appointments This section includes appointments that were scheduled to occur 6 months from the date of the Encounter, up to a maximum of 20 appointments. The data comes from all [place] treatment facilities. Appointment Date/Time Appointment Type Appointment Facili ty Name Nov 02, 2022 12:10 PM AMBULATORY - MEDICINE [facility] Nov 12, 2022 12:45 PM AMBULATORY - MEDICINE [facility] December 23, 2022 01:30 PM AMBULATORY - MEDICINE [facility] December 28, 2022 01:30 PM AMBULATORY - PSYCHIATRY [facility] Active, Pending, and Scheduled Orders This section includes a listing of several types of active, pending, and scheduled orders, including clinic medications orders, diagnostic test orders, procedure orders and consult orders; where the start date of the order is 45 days before the date of the Encounter or 45 days after the date of the Encounter. The data comes from all [place] treatment facilities. Test Date/Time Test Type Test Details Facility Name Aug 31, 2022 12:00 AM Laboratory - Chemistry BNP (Natriuretic [facility] Order Peptide Brain) [facility] BLOOD (LAV-PLASMA) SP Aug 31, 2022 12:00 AM Laboratory - Chemistry PT & INR (PROTIME) [facility]LOOD (BL[facility]ASMA[facility] Aug 31, 2022 12:00 AM Laboratory - Chemistry CBC AND DIFF (AUTO) [facility] Order BLOOD (LA[facility]BLOOD) [facility] Aug 31, 2022 12:00 AM Laboratory - Chemistry PTT BLOOD [facility] Order (BLUE[facility]PLASMA) [facility] Sep 09, 2022 12:00 AM Laboratory - Chemistry PT & INR (COUMADIN) [facility] Order BLOOD (BLUE-PLASMA) [facility] SP ONCE Lab Results: +/- 30 days of the encounter This section includes the Chemistry and Hematology Lab Results on record with [place] for the patient. Radiology Reports and Pathology Reports are provided separately, in subsequent sections.Lab Results This section contains the Chemistry/Hematology Results that were resulted 30 days before or 30 daysafter the date of the Encounter. Date/Time Source Result Type Result - Unit Interpretation Reference Range Comment Aug 26, 2022 12:58 [facility] PT & INR (COUMADIN) Specimen Type: PLASMA PM [facility] No comment enter ed. Ordering Provid er: MAT TAMAYO Report Released Date/Time: Aug 19, 2022 03:07 PM Reporting Lab: [facility] [address] [facility] [facility] [address] Performing Lab: [facility] [address] [facility] [facility] [address] INR 2.5 PROTIME 29.3 H 10.0-13.1 Aug 19, 2022 01:52 [facility] PT & INR (COUMADIN) Specimen Type: PLASMA PM [facility] No comment enter ed. Ordering Provid er: CIRILO HUNTER Report Released Date/Time: Jul 08, 2022 01:54 PM Reporting Lab: [facility] [address] [facility] [facility] [address] Performing Lab: [facility] [address] [facility] [facility] [address] INR 3.7 PROTIME 43.8 H 10.0-13.1 Social History: Smoking Status (Most current) and Tobacco Use (All prior to encounter date) This section includes the most current, and the historical, smoking and tobacco-related health factors from the [place] facility where the Encounter took place.Current Smoking Status This section includes the most current smoking, or tobacco-related health factor, from the [place] facility where the Encounter took place. Date/Time Current Smoking Status Comment Facility Apr 30, 2022 01:00 PM VA-TOBACCO FORMER USER [facility] Tobacco Use History This section includes a history of the smoking, or tobacco- related health factors, that were collected on or before the date of the Encounter. The data comes from the [place] facility where the Encounter took place. Date/Time Smoking Status/Tobacco Comment Facility Use Apr 30, 2022 01:00 VA-TOBACCO QUIT 15 YRS OR [facility] PM [place] [facility] Mar 20, 2021 01:00 VA-TOBACCO FORMER USER [facility] [place] [facility] Mar 20, 2021 01:00 VA-TOBACCO QUIT 15 YRS OR [facility] PM [place] [facility] January 17, 2020 11:33 VA-TOBACCO FORMER USER [facility] [place] [facility] January 17, 2020 11:33 VA-TOBACCO QUIT 15 YRS OR [facility] AM [place] [facility] Nov 23, 2018 01:22 VA-TOBACCO FORMER USER [facility] [place] [facility] Nov 23, 2018 01:22 VA-TOBACCO QUIT 15 YRS OR [facility] PM [place] [facility] January 18, 2018 12:53 QUIT TOBACCO USE 1-7 [facility] PM YEARS AGO PT STATES HE STOPP [address] [place] [facility] Dec 09, 2016 01:07 QUIT TOBACCO USE > 7 [facility] PM YEARS AGO [place] [facility] Nov 11, 2015 01:13 QUIT TOBACCO USE > 7 [facility] PM YE[place] AGO [place] [facility] Nov 19, 2004 03:17 HISTORY OF SMOKING [facility] PM quit [address] [place] [facility] Aug 10, 2003 01:03 HISTORY OF SMOKING [facility] [place] [facility] Apr 12, 2002 02:36 QUIT TOBACCO USE > 7 [facility] PM YEARS AGO [facility] Encounter Notes: All associated encounter notes This section contains the clinical notes associated to the Encounter. 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 A: [place] states he will be treated at [facility] for a reverse shoulder operation. He does not have an appointment yet. He believes he is 1-2 months out, but is on the list for any openings. He can not get any pain medication through them until the operation. is req uesting if he can have pain medications prescribed. Gay ran also requesting that if he can get a thirty day supply instead of 15 days. OXYCODONE HCL 5MG/APAP 325MG TAB [id number] ACTIVE 30 08/07/2022 08/07/2022 (0) SIG: TAKE 1 TABLET BY MOUTH EVERY 12 HOURS N EEDED FOR PAIN F: appreciative of the help. /yeimy/ AUBREE MAR Registered Nurse Signed: 08/28/2022 09:00 Receipt Acknowledged By: 08/28/2022 09:15 /yeimy/ BOYD GROSS MD STAFF PHYSICIAN 08/28/2022 ADDENDUM STATUS: COMPLETED Oxycodone 5 mg was prescribed twice a day for 4 weeks /yeimy/ BOYD GROSS MD STAFF PHYSICIAN Signed: 08/28/2022 09:18 Receipt Acknowledged By: * AWAITING SIGNATURE * AUBREE MAR
--- OUTSIDE RECORDS SUMMARY | 2022-11-03 05:52 | XMS_ITS | Encounter Summary ---
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 [facility] Aug 23, [id number] [phone] POLY ON,J PATIENT ION 2015 7 3 JUSTIN GEHA FEHB PREFERRED GE Aug 23, [id number] [phone] AKUA LIZETT,J PATIENT PROVIDER DAVID 2012 2 7 136 JUSTIN ORGANIZAT CTION ION (PPO) DENT GEHA FEHB PREFERRED MANUEL Aug 23, [id number] [phone] AKUA RDON,J PATIENT PROVIDER AL 2012 ALTH 7 136 JUSTIN ORGANIZAT GOV ION (PPO) MEDICARE MEDICARE PART Sep 23, PART A [id number] Bertha FENG PATIENT (WNR) (M) A [id number] 2 JUSTIN MEDICARE MEDICARE PART Sep 23, PART B [id number] Bertha FENG PATIENT (WNR) (M) B 2010 [id number] JUSTIN Selected Encounter This section includes the information on record at PA for the Encounter. Date/Time Encounter Type Encounter Reason Provider Source Description Sep 10, 2022 HC PRO PHONE TELEPHONE/ANCILLA ICD-10-CM Z51.81 Charlene TAMAYO 03:34 PM CALL 5-10 MIN RY Encounter for therapeutic drug level monitoring with Provider Comments: Therapeutic Drug Level Monitoring IHE Encounter Template Text not used by [facility] Assessments - Encounter Diagnoses This section includes the primary and secondary diagnoses documented for the Encounter. 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 This section includes future appointments and future orders which are active, pending orscheduled.Future Appointments This section includes appointments that were scheduled to occur 6 months from the date of the Encounter, up to a maximum of 20 appointments. The data comes from all PA treatment facilities. Appointment Date/Time Appointment Type Appointment Facili ty Name Nov 02, 2022 12:10 PM AMBULATORY - MEDICINE [facility] Nov 12, 2022 12:45 PM [facility] December 23, 2022 01:30 PM AMBULATORY - MEDICINE [facility] December 28, 2022 01:30 PM AMBULATORY - PSYCHIATRY [facility] Active, Pending, and Scheduled Orders This section includes a listing of several types of active, pending, and scheduled orders, including clinic medications orders, diagnostic test orders, procedure orders and consult orders; where the start date of the order is 45 days before the date of the Encounter or 45 days after the date of the Encounter. The data comes from all [facility] Test Date/Time Test Type Test Details Facility Name Aug 31, 2022 12:00 AM Laboratory - Chemistry PT & INR (PROTIME) [facility] Order BLOOD (BLUE-PLASMA) [facility] SP Aug 31, 2022 12:00 AM Laboratory - Chemistry BNP (Natriuretic [facility] Order Peptide Brain) [facility] BLOOD (LAV-PLASMA) SP Aug 31, 2022 12:00 AM Laboratory - Chemistry CBC AND DIFF (AUTO) [facility] B[facility]OD (LAV-BLOOD) [facility] SP Aug 31, 2022 12:00 AM Laboratory - Chemistry PTT BLOOD [facility] Order (BLUE-PLASMA) SP [facility] Sep 09, 2022 12:00 AM Laboratory - Chemistry PT & INR (COUMADIN) [facility] Order BLOOD (BLUE-PLASMA) [facility] SP ONCE Oct 15, 2022 12:00 AM Laboratory - Chemistry PT & INR (COUMADIN) [facility] Order BLOOD (BLUE-PLASMA) [facility] SP ONCE Lab Results: +/- 30 days of the encounter This section includes the Chemistry and Hematology Lab Results on record with PA for the patient. Radiology Reports and Pathology Reports are provided separately, in subsequent sections.Lab Results This section contains the Chemistry/Hematology Results that were resulted 30 days before or 30 daysafter the date of the Encounter. Date/Time Source Result Type Result - Unit Interpretation Reference Range Comment Oct 02, 2022 12:28 [facility] ETG SCREEN (wx) Specimen Typ e: URINE PM [facility] Comment: CHRISTINE te st are qualitative, any L or H flags only indicate a VA alert was sent. This ETG test was developed and its performance characteristics determined by PA clinical lab. The [place] Food and Cipriano g Administration has not approved or cleared this test, FDA clearance or approval is not currently required for clinical use. ETG cutoff 500 ng/mL CHRISTINE Screens are for medical purposes. For confirmation use CHRISTINE Confirmation Add on Menu in CPRS. Ordering Provid er: BOYD GROSS Report Released Date/Time: Sep 17, 2022 02:57 PM Reporting Lab: [facility] [address] [facility] [address] Performing Lab: [facility] [address] [facility] [address] ETG SCREEN (wx) SCREEN POS H Negative Oct 02, 2022 12:28 [facility] M[facility] S[facility]EN Specimen Ty pe: URINE PM [facility] Comment: CHRISTINE te st are qualitative, any L or H flags only indicate a VA alert was sent. Ordering Provid er: BOYD GROSS Report Released Date/Time: Sep 17, 2022 02:57 PM Reporting Lab: [facility] [address] [facility] [address] Performing Lab: [facility] [address] [facility] [address] METHADONE SCREEN None detected(Negative) L Negative Oct 02, 2022 [facility] ALCOHOL, ETHYL URINE Specimen T ype: URINE 12:28 PM [facility] PANEL Comment: Urine with Cr <5 is diluted or substituted. Cr between 5 and 20 is very dilute. Urine with SG of 1.001 or less is diluted or substituted. SG of 1.003 or less is very dilute. Urine with a pH <3 or >11 has b een adulterated and is unsuitable for testing by our current method. Urine with pH between 3 and 4 OR 10 and 11 may have been adulterated. Ordering Provid er: BOYD GROSS Report Released Date/Time: Sep 17, 2022 02:57 PM Reporting Lab: [facility] [address] [facility] [address] Performing Lab: [facility] [address] [facility] [address] ALCOHOL, ETHYL URINE NONE-DETECTED NONE- DETECTED, cutoff = 10 mg/dL PH, CHRISTINE 5.6 4-10 CREATININE, CHRISTINE 67.17 >20 SP.GRAVITY, CHRISTINE 1.012 1.003-1.020 Oct 02, 2022 [facility] AMPHETAMINES SCREEN Specimen Ty pe: URINE 12:28 PM [facility] PANEL Comment: Urine with Cr <5 is diluted or substituted. Cr between 5 and 20 is very dilute. Urine with SG of 1.001 or less is diluted or substituted. SG of 1.003 or less is very dilute. Urine with a pH <3 or >11 has b een adulterated and is unsuitable for testing by our current method. Urine with pH between 3 and 4 OR 10 and 11 may have been adulterated. Ordering Provid er: BOYD GROSS Report Released Date/Time: Sep 17, 2022 02:57 PM Reporting Lab: [facility] [address] [facility] [address] Performing Lab: [facility] [address] [facility] [address] AMPHETAMINES SCREEN NONE-DETECTED None-D etected, Cutoff = 1000 ng/mL PH, CHRISTINE 5.6 4-10 CREATININE, CHRISTINE 67.17 >20 SP.GRAVITY, CHRISTINE 1.012 1.003-1.020 Oct 02, 2022 [facility] FENTANYL SCREEN Specimen Type: URINE 12:28 PM [facility] PANEL Comment: Urine with Cr <5 is diluted or substituted. Cr between 5 and 20 is very dilute. Urine with SG of 1.001 or less is diluted or substituted. SG of 1.003 or less is very dilute. Urine with a pH <3 or >11 has b een adulterated and is unsuitable for testing by our current method. Urine with pH between 3 and 4 OR 10 and 11 may have been adulterated. FENTANYL CONFIRMATION NOT SENT BY LAB. Ordering Provid er: BOYD GROSS Report Released Date/Time: Sep 17, 2022 02:57 PM Reporting Lab: [address] [address] Performing Lab: [facility] [address] [facility] [address] FENTANYL SCREEN NONE-DETECTED Negative: Cutoff = 1.00 ng/mL PH, CHRISTINE 5.6 4-10 CREATININE, CHRISTINE 66.53 >20 SP.GRAVITY, CHRISTINE 1.012 1.003-1.020 Oct 02, 2022 [facility] BENZODIAZEPINES SCREEN Specimen Type: URINE 12:28 PM [facility] PANEL Comment: Urine with Cr <5 is diluted or substituted. Cr between 5 and 20 is very dilute. Urine with SG of 1.001 or less is diluted or substituted. SG of 1.003 or less is very dilute. Urine with a pH <3 or >11 has b een adulterated and is unsuitable for testing by our current method. Urine with pH between 3 and 4 OR 10 and 11 may have been adulterated. Ordering Provid er: BOYD GROSS Report Released Date/Time: Sep 17, 2022 02:57 PM Reporting Lab: [facility] [address] [facility] [address] Performing Lab: [address] [address] BENZODIAZEPINES SCREEN NONE-DETECTED Non e-Detected, Cutoff = 200 ng/mL PH, CHRISTINE 5.6 4-10 CREATININE, CHRISTINE 67.17 >20 SP.GRAVITY, CHRISTINE 1.012 1.003-1.020 Oct 02, 2022 [facility] BUPRENORPHINE SCREEN Specimen T ype: URINE 12:28 PM [facility] PANEL Comment: Urine with Cr <5 is diluted or substituted. Cr between 5 and 20 is very dilute. Urine with SG of 1.001 or less is diluted or substituted. SG of 1.003 or less is very dilute. Urine with a pH <3 or >11 has b een adulterated and is unsuitable for testing by our current method. Urine with pH between 3 and 4 OR 10 and 11 may have been adulterated. Ordering Provid er: BOYD GROSS Report Released Date/Time: Sep 17, 2022 02:57 PM Reporting Lab: [address] [address] Performing Lab: [facility] [address] [facility] [address] BUPRENORPHINE (URINE) NONE-DETECTED None Detected, Cutoff = 10.0 ng/mL PH, CHRISTINE 5.6 4-10 CREATININE, CHRISTINE 67.17 >20 SP.GRAVITY, CHRISTINE 1.012 1.003-1.020 Oct 02, 2022 [facility] CANNABINOIDS SCREEN Specimen Ty pe: URINE 12:28 PM [facility] PANEL Comment: Urine with Cr <5 is diluted or substituted. Cr between 5 and 20 is very dilute. Urine with SG of 1.001 or less is diluted or substituted. SG of 1.003 or less is very dilute. Urine with a pH <3 or >11 has b een adulterated and is unsuitable for testing by our current method. Urine with pH between 3 and 4 OR 10 and 11 may have been adulterated. Ordering Provid er: BOYD GROSS Report Released Date/Time: Sep 17, 2022 02:57 PM Reporting Lab: [facility] [address] [facility] [address] Performing Lab: [facility] [address] [facility] [address] CANNABINOIDS SCREEN NONE-DETECTED None-D etected,Cutoff = 50 ng/mL PH, CHRISTINE 5.6 4-10 CREATININE, CHRISTINE 67.17 >20 SP.GRAVITY, CHRISTINE 1.012 1.003-1.020 Oct 02, 2022 [facility] COCAINE SCREEN Specimen Type: URINE 12:28 PM [facility] PANEL Comment: Urine with Cr <5 is diluted or substituted. Cr between 5 and 20 is very dilute. Urine with SG of 1.001 or less is diluted or substituted. SG of 1.003 or less is very dilute. Urine with a pH <3 or >11 has b een adulterated and is unsuitable for testing by our current method. Urine with pH between 3 and 4 OR 10 and 11 may have been adulterated. Ordering Provid er: BOYD GROSS Report Released Date/Time: Sep 17, 2022 02:57 PM Reporting Lab: [facility] [address] [facility] [address] Performing Lab: [facility] [address] [facility] [address] COCAINE SCREEN NONE-DETECTED None-Detect ed,Cutoff = 300 ng/mL PH, CHRISTINE 5.6 4-10 CREATININE, CHRISTINE 67.17 >20 SP.GRAVITY, CHRISTINE 1.012 1.003-1.020 Oct 02, 2022 [facility] OPIATES SCREEN Specimen Type: URINE 12:28 PM [facility] PANEL Comment: Urine with Cr <5 is diluted or substituted. Cr between 5 and 20 is very dilute. Urine with SG of 1.001 or less is diluted or substituted. SG of 1.003 or less is very dilute. Urine with a pH <3 or >11 has b een adulterated and is unsuitable for testing by our current method. Urine with pH between 3 and 4 OR 10 and 11 may have been adulterated. Ordering Provid er: BOYD GROSS Report Released Date/Time: Sep 17, 2022 02:57 PM Reporting Lab: [facility] [place] [facility] [address] [facility] [address] Performing Lab: [facility] [place] [facility] [address] [facility] [address] OPIATES SCREEN NONE-DETECTED None-Detect ed, Cutoff = 300 ng/mL PH, CHRISTINE 5.6 4-10 CREATININE, CHRISTINE 67.17 >20 SP.GRAVITY, CHRISTINE 1.012 1.003-1.020 Oct 02, 2022 [facility] OXYCODONE SCREEN Specimen Type: URINE 12:28 PM [place] [facility] PANEL Comment: Urine with Cr <5 is diluted or substituted. Cr between 5 and 20 is very dilute. Urine with SG of 1.001 or less is diluted or substituted. SG of 1.003 or less is very dilute. Urine with a pH <3 or >11 has b een adulterated and is unsuitable for testing by our current method. Urine with pH between 3 and 4 OR 10 and 11 may have been adulterated. Ordering Provid er: BOYD GROSS Report Released Date/Time: Sep 17, 2022 02:57 PM Reporting Lab: [facility] [place] [facility] [address] [facility] [address] Performing Lab: [facility] [place] [facility] [address] [facility] [address] OXYCODONE SCREEN POSITIVE HH None-Detected , Cutoff = 100 ng/mL PH, CHRISTINE 5.6 4-10 CREATININE, CHRISTINE 67.17 >20 SP.GRAVITY, CHRISTINE 1.012 1.003-1.020 Oct 02, 2022 12:21 [facility] PT & INR (COUMADIN) Specimen Type: PLASMA PM [place] [facility] No comment enter ed. Ordering Provid er: MAT TAMAYO Report Released Date/Time: Sep 10, 2022 03:46 PM Reporting Lab: [facility] [address] [facility] [address] Performing Lab: [facility] [address] [facility] [address] INR 3.3 PROTIME 38.2 H 10.0-13.1 Aug 26, 2022 12:58 [facility] PT & INR (COUMADIN) Specimen Type: PLASMA PM [place] [facility] No comment enter ed. Ordering Provid er: MAT TAMAYO Report Released Date/Time: Aug 19, 2022 03:07 PM Reporting Lab: [facility] [place] [facility] [address] [facility] [address] Performing Lab: [facility] [place] [facility] [address] [facility] [address] INR 2.5 PROTIME 29.3 H 10.0-13.1 Aug 19, 2022 01:52 [facility] PT & INR (COUMADIN) Specimen Type: PLASMA PM [place] [facility] No comment enter ed. Ordering Provid er: CIRILO HUNTER Report Released Date/Time: Jul 08, 2022 01:54 PM Reporting Lab: [facility] [place] [facility] [address] [facility] [address] Performing Lab: [facility] [place] [facility] [address] [facility] [address] INR 3.7 PROTIME 43.8 H 10.0-13.1 Social History: Smoking Status (Most current) and Tobacco Use (All prior to encounter date) This section includes the most current, and the historical, smoking and tobacco-related health factors from the PA facility where the Encounter took place.Current Smoking Status This section includes the most current smoking, or tobacco-related health factor, from the PA facility where the Encounter took place. Date/Time Current Smoking Status Comment Facility Apr 30, 2022 01:00 PM VA[facility]TOBACCO [facility] [place] [facility] Tobacco Use History This section includes a history of the smoking, or tobacco- related health factors, that were collected on or before the date of the Encounter. The data comes from the PA facility where the Encounter took place. Date/Time Smoking Status/Tobacco Comment Facility Use Apr 30, 2022 01:00 VA-TOBACCO QUIT 15 YRS OR [facility] PM MORE [place] [facility] Mar 20, 2021 01:00 VA-TOBACCO FORMER USER [facility] PM [place] [facility] Mar 20, 2021 01:00 VA-TOBACCO QUIT 15 YRS OR [facility] PM MORE [place] [facility] January 17, 2020 11:33 VA-TOBACCO FORMER USER [facility] AM [place] [facility] January 17, 2020 11:33 VA-TOBACCO QUIT 15 YRS OR [facility] AM MORE [place] [facility] Nov 23, 2018 01:22 VA-TOBACCO FORMER USER [facility] PM [place] [facility] Nov 23, 2018 01:22 VA-TOBACCO QUIT 15 YRS OR [facility] PM MORE [place] [facility] January 18, 2018 12:53 QUIT TOBACCO USE 1-7 [facility] PM YEARS AGO PT STATES HE STOPP 4 YR AGO [place] [facility] Dec 09, 2016 01:07 QUIT TOBACCO USE > 7 [facility] PM YEARS AGO [place] [facility] Nov 11, 2015 01:13 QUIT TOBACCO USE > 7 [facility] PM YEARS AGO [place] [facility] Nov 19, 2004 03:17 HISTORY OF SMOKING [facility] PM quit 30 yrs ago [place] [facility] Aug 10, 2003 01:03 HISTORY OF SMOKING [facility] PM [place] [facility] Apr 12, 2002 02:36 QUIT TOBACCO USE > 7 [facility] PM YEARS AGO [facility] Encounter Notes: All associated encounter notes This section contains the clinical notes associated to the Encounter. Date/Time Encounter Note(s) Provider Source Sep 10, 2022 03:35 PM PHARMACY MEDICATION MGT NOTE: MAT TAMAYO [facility] LOCAL TITLE: PHARMACY ANTICOAGULATION NOTE [facility] STANDARD TITLE: PHARMACY MEDICATION MGT NOTE DATE OF NOTE: SEP 10, 2022@15:35 ENTRY DATE: SEP 10, 2022@15:35:32 AUTHOR: MAT TAMAYO EXP COSIGNER: URGENCY: STATUS: COMPLETED PHARMACY ANTICOAGULATION NOTE Has ADDENDA * REFERRED TO CLINIC ON: 06/14/07 PRIMARY CARE PHYSICIAN: Dr. James SHABAZZ INFORMATION: OTHER CONTACT INFORMATION: PATIENT'S PHONE #: [phone] cell (call first ) [phone] home - can speak w/ Ej per pt's verbal authorization CLINIC LOCATION: [facility] COUMADIN THERAPY INITIATED ON: 1992 PLANNED [...] 2.5 *pt held one dose as instructed* 09/10/22 [facility] 5 7.5 5 7.5 5 7.5 5 2.6 *spoke with pt* CORRECT DOSE: yes, verified MISSED DOSES: denies BLEEDING: denies NEW EVENTS: denies PROCEDURES: Upcoming shoulder surgery, date stil l TBD. Pt will keep [facility] updated, bridging may be needed. MED CHANGES: Pt still taking oxycodone and tylen ol PRN. Tylenol 500mg BID PRN for shoulder pain. DIET CHANGES: none. per prev: ~1 salad/week EtOH: ~1-2 beers a day or less - per previous no katy TOBACCO: denies use TABLETS: filled x 90 days on 06/29/22 OTHER: takes dose in AM TABLET STRENGTH: 5mg ASSESSMENT: INR is therapeutic at 2.6 (goal 2-3) . PLAN: Informed pt via telephone of his I NR result from today. Instructed pt to CONTINUE weekly warfarin dose of 42.5mg/ week, taking 5mg daily x 4 days except 7.5mg on Mon/Wed/Fri. Informed pt of his next PT /INR scheduled on 10/01/22. Return to clinic: Sep - [facility] (3 weeks) Time spent with patient: 5 minutes EDUCATION Provided with verbal instructions: Yes Provided with written instructions: No Barriers to learning: No Readiness to learn: Yes Specific dose directions reviewed: Yes Opportunity for questions/discussion: Yes Reports understanding of instructions: Yes Further learning needs: No Provided patient education on the following: Dose INR 2.00-3.00: Therapeutic /yeimy/ Mat Tamayo PharmD, [facility] CL[facility]ICAL [facility]AC[facility] PROVIDER Signed: 09/10/2022 15:46 Receipt Acknowledged By: 09/10/2022 15:49 /yeimy/ ZAK BOWER CPHT Clinical Volleyball Coach 10/01/2022 ADDENDUM STATUS: COMPLETED Pt calls asking to change his appt. Original appt date: 10/01/22 New appt date: 10/02/22 [X] spreadsheet updated /ata BOWER CPHT Clinical Volleyball Coach Signed: 10/01/2022 12:27
--- OUTSIDE RECORDS SUMMARY | 2022-11-03 05:52 | XMS_ITS ---
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 [facility] Aug 23, [id number] [phone] POLY ON,J PATIENT ION 2015 7 3 JUSTIN GEHA FEHB PREFERRED [facility] Aug 23, [id number] [phone] Bertha RICHARDSON PATIENT PROVIDER AL 2012 ALTH 7 136 JUSTIN ORGANIZAT GOV ION (PPO) GEHA FEHB PREFERRED GEHA Aug 23, [id number] [phone] AKUA LIZETT,J PATIENT PROVIDER DAVID 2012 2 7 136 JUSTIN ORGANIZAT CTION ION (PPO) DENT MEDICARE MEDICARE PART Sep 23, PART B [id number] Bertha FENG PATIENT (WNR) (M) B 2010 [id number] JUSTIN MEDICARE MEDICARE PART Sep 23, PART A [id number] Bertha FENG PATIENT (WNR) (M) A 2010 [id number] 2 JUSTIN Selected Encounter This section includes the information on record at [place] for the Encounter. Date/Time Encounter Type Encounter Reason Provider Source Description Sep 17, 2022 POS AIRWAY ADMIN PAT ICD-10-CM G47.30 SID RODGERS 06:49 AM PRESSURE FILTER ACTIVTIES Sleep apnea, P (MASNONCT) unspecified with Provider Comments: Sleep apnea (SNOMED CT [id number]) IHE Encounter Template Text not used by [place] Assessments - Encounter Diagnoses This section includes the primary and secondary diagnoses documented for the Encounter. Date/Time Primary/Secondary Diagnosis Name Provider Source Diagnosis Sep 17, 2022 PRIMARY Sleep apnea, SID RODGERS [facility] N 06:49 AM unspecified P [facility] Plan of Treatment: Future Appointments (+ 6 months) and Future Tests (+/- 45 days) The Plan of Treatment section includes future care activities for the patient from all [place] [email or web address]. This section includes future appointments and future orders which are active, pending orscheduled.Future Appointments This section includes appointments that were scheduled to occur 6 months from the date of the Encounter, up to a maximum of 20 appointments. The data comes from all [place] treatment [facility]. Appointment Date/Time Appointment Type Appointment Facili ty Name Nov 02, 2022 12:10 PM AMBULATORY - MEDICINE [facility] Nov 12, 2022 12:45 PM AMBULATORY - MEDICINE [facility] December 23, 2022 01:30 PM AMBULATORY - MEDICINE [facility] December 28, 2022 01:30 PM AMBULATORY - PSYCHIATRY [facility] Active, Pending, and Scheduled Orders This section includes a listing of several types of active, pending, and scheduled orders, including clinic medications orders, diagnostic test orders, procedure orders and consult orders; where the start date of the order is 45 days before the date of the Encounter or 45 days after the date of the Encounter. The data comes from all [place] treatment [facility]. Test Date/Time Test Type Test Details Facility Name Aug 31, 2022 12:00 AM Laboratory - Chemistry PTT BLOOD [facility] Order (BLUE-PLASMA) SP [facility] Aug 31, 2022 12:00 AM Laboratory - Chemistry PT & INR (PROTIME) [facility] Order BLOOD (BLUE-PLASMA) [facility] SP Aug 31, 2022 12:00 AM Laboratory - Chemistry CBC AND DIFF (AUTO) [facility] Order BLOOD (LAV-BLOOD) [facility] S SP Aug 31, 2022 12:00 AM Laboratory - Chemistry BNP (Natriuretic [facility] Order Peptide Brain) [facility] BLOOD (LAV-PLASMA) SP Sep 09, 2022 12:00 AM Laboratory - Chemistry PT & INR (COUMADIN) [facility] Order BLOOD (BLUE-PLASMA) [facility] SP ONCE Oct 15, 2022 12:00 AM Laboratory - Chemistry PT & INR (COUMADIN) [facility] Order BLOOD (BLUE-PLASMA) [facility] SP ONCE Oct 29, 2022 12:00 AM Laboratory - Chemistry PT & INR (COUMADIN) [facility] Order BLOOD (BLUE-PLASMA) (631GE) SP ONCE Lab Results: +/- 30 days of the encounter This section includes the Chemistry and Hematology Lab Results on record with [place] for the patient. Radiology Reports and Pathology Reports are provided separately, in subsequent sections.Lab Results This section contains the Chemistry/Hematology Results that were resulted 30 days before or 30 daysafter the date of the Encounter. Date/Time Source Result Type Result - Unit Interpretation Reference Range Comment Oct 02, 2022 12:28 [facility] ETG SCREEN (wx) Specimen Typ e: URINE PM [facility] Comment: CHRISTINE te st are qualitative, any L or H flags only indicate a [facility] alert was sent. This ETG test was developed and its performance characteristics determined by [place] clinical lab. The [place] Food and Cipriano g Administration has not approved or cleared this test, FDA clearance or approval is not currently required for clinical use. ETG cutoff 500 ng/mL CHRISTINE Screens are for medical purposes. For confirmation use CHRISTINE Confirmation Add on Menu in CPRS. Ordering Provid er: BOYD GROSS Report Released Date/Time: Sep 17, 2022 02:57 PM Reporting Lab: [address] [address] Performing Lab: [facility] [address] [facility] [address] ETG SCREEN (wx) SCREEN POS H Negative Oct 02, 2022 12:28 [facility] METHADONE SCREEN Specimen Ty pe: [facility]INE PM [facility] Comment: CHRISTINE te st are qualitative, any L or H flags only indicate a [facility] alert was sent. Ordering Provid er: BOYD GROSS Report Released Date/Time: Sep 17, 2022 02:57 PM Reporting Lab: [address] [address] Performing Lab: [facility] [address] [address] METHADONE SCREEN None detected(Negative) L Negative Oct 02, 2022 [facility] WSN ALCOHOL, ETHYL URINE Specimen T ype: URINE 12:28 PM [facility] PANEL Comment: Urine with Cr <5 [...] Sep 17, 2022 02:57 PM Reporting Lab: [address] [address] Performing Lab: [address] [address] ALCOHOL, ETHYL URINE NONE-DETECTED NONE- DETECTED, cutoff = 10 mg/dL PH, CHRISTINE 5.6 4-10 CREATININE, CHRISTINE 67.17 >20 SP.GRAVITY, CHRISTINE 1.012 1.003-1.020 Oct 02, 2022 [facility] AMPHETAMINES [facility] Specimen Ty pe: URINE 12:28 PM [facility] PANEL Comment: Urine with Cr <5 [...] Sep 17, 2022 02:57 PM Reporting Lab: [facility] [address] [address] Performing Lab: [facility] [address] [address] AMPHETAMINES SCREEN NONE-DETECTED None-D etected, Cutoff = 1000 ng/mL PH, CHRISTINE 5.6 4-10 CREATININE, CHRISTINE 67.17 >20 SP.GRAVITY, CHRISTINE 1.012 1.003-1.020 Oct 02, 2022 [facility] FENTANYL SCREEN Specimen Type: URINE 12:28 PM [place] [facility] PANEL Comment: Urine with Cr <5 [...] Sep 17, 2022 02:57 PM Reporting Lab: [facility] [address] [address] Performing Lab: [facility] [address] [address] FENTANYL SCREEN NONE-DETECTED Negative: Cutoff = 1.00 ng/mL PH, CHRISTINE 5.6 4-10 CREATININE, CHRISTINE 66.53 >20 SP.GRAVITY, CHRISTINE 1.012 1.003-1.020 Oct 02, 2022 [facility] W[facility] BENZODIAZEPINES SCREEN Specimen Type: URINE 12:28 PM [facility] PANEL Comment: Urine with Cr <5 [...] Sep 17, 2022 02:57 PM Reporting Lab: [facility] [address] [address] Performing Lab: [facility] [address] [address] BENZODIAZEPINES SCREEN NONE-DETECTED Non e-Detected, Cutoff = 200 ng/mL PH, CHRISTINE 5.6 4-10 CREATININE, CHRISTINE 67.17 >20 SP.GRAVITY, CHRISTINE 1.012 1.003-1.020 Oct 02, 2022 [facility] BUPRENORPHINE SCREEN Specimen T ype: URINE 12:28 PM [facility] [facility] PANEL Comment: Urine with Cr <5 [...] Sep 17, 2022 02:57 PM Reporting Lab: [facility] [address] [address] Performing Lab: [facility] [address] [address] BUPRENORPHINE (URINE) NONE-DETECTED None Detected, Cutoff = 10.0 ng/mL PH, CHRISTINE 5.6 4-10 CREATININE, CHRISTINE 67.17 >20 SP.GRAVITY, CHRISTINE 1.012 1.003-1.020 Oct 02, 2022 [facility] CANNABINOIDS SCREEN Specimen Ty pe: URINE 12:28 PM [facility] PANEL Comment: Urine with Cr <5 [...] Sep 17, 2022 02:57 PM Reporting Lab: [place] [email or web address] [facility] CommerceTR[facility]Studio[facility] [address] [address] Performing Lab: [place] [email or web address] [facility] uStudioUSETS [facility] [address] [address] CANNABINOIDS SCREEN NONE-DETECTED None-D etected,Cutoff = 50 ng/mL PH, CHRISTINE 5.6 4-10 CREATININE, CHRISTINE 67.17 >20 SP.GRAVITY, CHRISTINE 1.012 1.003-1.020 Oct 02, 2022 [place] [email or web address] WSTRN COCAINE SCREEN Specimen Type: URINE 12:28 [...] Sep 17, 2022 02:57 PM Reporting Lab: [facility] GHH CommerceTRN [place] [facility] [address] [address] Performing Lab: [place] [email or web address] [facility] uStudioUSETS [facility] [address] [address] COCAINE SCREEN NONE-DETECTED None-Detect ed,Cutoff = 300 ng/mL PH, CHRISTINE 5.6 4-10 CREATININE, CHRISTINE 67.17 >20 SP.GRAVITY, CHRISTINE 1.012 1.003-1.020 Oct 02, 2022 [place] [email or web address] WSTRN OPIATES SCREEN Specimen Type: URINE 12:28 PM [facility] PANEL Comment: Urine with Cr <5 [...] Sep 17, 2022 02:57 PM Reporting Lab: [place] [email or web address] [facility]USEGENESEE [facility] [address] [address] Performing Lab: [place] [email or web address] [address] [address] OPIATES SCREEN NONE-DETECTED None-Detect ed, Cutoff = 300 ng/mL PH, CHRISTINE 5.6 4-10 CREATININE, CHRISTINE 67.17 >20 SP.GRAVITY, CHRISTINE 1.012 1.003-1.020 Oct 02, 2022 [place] [email or web address]ENTERTRN OXYCODONE SCREEN Specimen Type: URINE 12:28 PM [facility] PANEL Comment: Urine with Cr <5 [...] Sep 17, 2022 02:57 PM Reporting Lab: [place] [email or web address] CritiSenseUSETS [facility] [address] [address] Performing Lab: [place] [email or web address] [facility] CommerceDEPART[facility] V[facility]ER[facility]REUSE[address] [address] OXYCODONE SCREEN POSITIVE HH None-Detected , Cutoff = 100 ng/mL PH, CHRISTINE 5.6 4-10 CREATININE, CHRISTINE 67.17 >20 SP.GRAVITY, CHRISTINE 1.012 1.003-1.020 Oct 02, 2022 12:21 [place] [email or web address]ENTERTR[facility] PT & INR (COUMADIN) Specimen Type: PLASMA PM [facility] No comment enter ed. Ordering Provid er: MAT TAMAYO Report Released Date/Time: Sep 10, 2022 03:46 PM Reporting Lab: [facility] [place] [facility] [address] [address] Performing Lab: [facility] [facility] [address] [address] INR 3.3 PROTIME 38.2 H 10.0-13.1 Aug 26, 2022 12:58 [facility] PT & INR (COUMADIN) Specimen Type: PLASMA PM [facility] No comment enter ed. Ordering Provid er: MAT TAMAYO Report Released Date/Time: Aug 19, 2022 03:07 PM Reporting Lab: [facility] [address] [address] Performing Lab: [facility] [address] [address] INR 2.5 PROTIME 29.3 H 10.0-13.1 Aug 19, 2022 01:52 [facility] PT & INR (COUMADIN) Specimen Type: PLASMA PM [facility] No comment enter ed. Ordering Provid er: CIRILO HUNTER Report Released Date/Time: Jul 08, 2022 01:54 PM Reporting Lab: [facility] [address] [address] Performing Lab: [facility] [place] [facility] [address] [address] INR 3.7 PROTIME 43.8 H 10.0-13.1 Social History: Smoking Status (Most current) and Tobacco Use (All prior to encounter date) This section includes the most current, and the historical, smoking and tobacco-related health factors from the [place] facility where the Encounter took place.Current Smoking Status This section includes the most current smoking, or tobacco-related health factor, from the [place] facility where the Encounter took place. Date/Time Current Smoking Status Comment Facility Apr 30, 2022 01:00 PM VA-TOBACCO FORMER USER [facility] Tobacco Use History This section includes a history of the smoking, or tobacco- related health factors, that were collected on or before the date of the Encounter. The data comes from the [place] facility where the Encounter took place. Date/Time Smoking Status/Tobacco Comment Facility Use Apr 30, 2022 01:00 VA-TOBACCO QUIT 15 YRS OR [facility] PM [place] [facility] Mar 20, 2021 01:00 VA-TOBACCO FORMER USER [facility] [place] [facility] Mar 20, 2021 01:00 VA-TOBACCO QUIT 15 YRS OR [facility] PM [place] [facility] January 17, 2020 11:33 VA-TOBACCO FORMER USER [facility] AM [place] [facility] January 17, 2020 11:33 VA-TOBACCO QUIT 15 YRS OR [facility] AM [place] [facility] Nov 23, 2018 01:22 VA-TOBACCO FORMER USER [facility] PM [place] [facility] Nov 23, 2018 01:22 VA-TOBACCO QUIT 15 YRS OR [facility] PM [place] [facility] January 18, 2018 12:53 QUIT TOBACCO USE 1-7 [facility] PM YEARS AGO PT STATES HE STOPP 4 YR AGO [place] [facility] Dec 09, 2016 01:07 QUIT TOBACCO USE > 7 [facility] PM YEARS AGO [place] [facility] Nov 11, 2015 01:13 QUIT TOBACCO USE > 7 [facility] PM YEARS AGO [place] [facility] Nov 19, 2004 03:17 HISTORY OF SMOKING [facility] PM quit 30 yrs ago [place] [facility] Aug 10, 2003 01:03 HISTORY OF SMOKING [facility] [place] [facility] Apr 12, 2002 02:36 QUIT TOBACCO USE > 7 [facility] PM YEARS AGO [facility] Encounter Notes: All associated encounter notes This section contains the clinical notes associated to the Encounter. Date/Time Encounter Note(s) Provider Source Sep 17, 2022 06:50 AM RESPIRATORY THERAPY NOTE: SID RODGERS [facility] LOCAL TITLE: RESPIRATORY THERAPY NOTE(BLANK) [facility] STANDARD TITLE: RESPIRATORY THERAPY NOTE DATE OF NOTE: SEP 17, 2022@06:50 ENTRY DATE: SEP 17, 2022@06:50:31 AUTHOR: SDI RODGERS EXP COSIGNER: URGENCY: STATUS: COMPLETED diagnosed with sleep apnea will have his CPAP prescription renewed for 1 year using AirView. He is using [employer]Med Airsense 10 set to CPAP @ 11 cmH2O. AirView data follows note. [place] will be sent 2 new masks, 2 hoses, filters and humidifier tank. Written cleaning, resupply schedule and contact information will be sent. He will be scheduled f or a follow-up via self-alert system to renew his prescrip tion in one year. Vet will be followed in clinic as needed as well as via the Airview program. AirView Compliance Report Usage 08/18/2022 - 09/16/2022 Usage days 30/30 days (100%) >= 4 hours 25 days (83%) < 4 hours 5 days (17%) Usage hours 163 hours 18 minutes Average usage (total days) 5 hours 27 minutes Average usage (days used) 5 hours 27 minutes Median usage (days used) 5 hours 41 minutes Total used hours (value since last reset - 09/16) 5,287 hours AirSense 10 AutoSet Serial number [id number] Mode CPAP Set pressure 11 cmH2O EPR Fulltime EPR level 1 Therapy Leaks - L/min Median: 17.7 95th percentile: 50.9 Maximum: 61.9 Events per hour AI: 0.9 HI: 0.4 AHI: 1.3 Apnea Index Central: 0.9 Obstructive: 0.0 Unknow n: 0.0 RERA Index 1.7 /yeimy/ SID RODGERS RESPIRATORY THERAPIST Signed: 09/17/2022 07:00
--- OUTSIDE RECORDS SUMMARY | 2022-11-03 05:53 | XMS_ITS ---
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 Aug 23, [id number] [phone] POLY ON,J PATIENT ION 2015 7 3 JUSTIN GEHA FEHB PREFERRED [facility] Aug 23, [id number] [phone] Bertha RICHARDSON PATIENT PROVIDER AL 2012 ALTH 7 136 JUSTIN ORGANIZAT GOV ION (PPO) GEHA FEHB PREFERRED GEHA Aug 23, [id number] [phone] AKUA LIZETT,J PATIENT PROVIDER DAVID 2012 2 7 136 JUSTIN ORGANIZAT CTION ION (PPO) DENT MEDICARE MEDICARE PART Sep 23, PART B [id number] Bertha FENG PATIENT (WNR) (M) B 2010 [id number] JUSTIN MEDICARE MEDICARE PART Sep 23, PART A [id number] Bertha FENG PATIENT (WNR) (M) A 2010 [id number] 2 JUSTIN Selected Encounter This section includes the information on record at [place] for the Encounter. Date/Time Encounter Type Encounter Description Reason Provider Source Sep 17, 2022 11:46 Outpatient Encounter ADMIN JULIO BRYANTFREDDIE BRIGETTE (JEN) IHEric Encounter Template Text not used by [place] Plan of Treatment: Future Appointments (+ 6 months) and Future Tests (+/- 45 days) The Plan of Treatment section includes future care activities for the patient from all [place] treatmentfacilities. This section includes future appointments and future orders which are active, pending orscheduled.Future Appointments This section includes appointments that were scheduled to occur 6 months from the date of the Encounter, up to a maximum of 20 appointments. The data comes from all [place] treatment facilities. Appointment Date/Time Appointment Type Appointment Facili ty Name Nov 02, 2022 12:10 PM AMBULATORY - [facility] Nov 12, 2022 12:45 PM [facility]ULATORY - [facility] December 23, 2022 01:30 PM AMBULATORY - [facility] December 28, 2022 01:30 PM AMBULATORY - PSYCHIATRY [facility] Active, Pending, and Scheduled Orders This section includes a listing of several types of active, pending, and scheduled orders, including clinic medications orders, diagnostic test orders, procedure orders and consult orders; where the start date of the order is 45 days before the date of the Encounter or 45 days after the date of the Encounter. The data comes from all [place] treatment [facility]. Test Date/Time Test Type Test Details Facility Name Aug 31, 2022 12:00 AM Laboratory - Chemistry BNP (Natriuretic [facility] Order Peptide Brain) [facility] BLOOD (LAV-PLASMA) SP Aug 31, 2022 12:00 AM Laboratory - Chemistry PT & INR (PROTIME) [facility] Order BLOOD (BLUE-PLASMA) [facility] SP Aug 31, 2022 12:00 AM Laboratory - Chemistry PTT BLOOD [facility] Order (BLUE-PLASMA) SP [facility] Aug 31, 2022 12:00 AM Laboratory - Chemistry CBC AND DIFF (AUTO) [facility] Order BLOOD (LAV-BLOOD) [facility] S SP Sep 09, 2022 12:00 AM Laboratory - Chemistry PT & INR (COUMADIN) [facility] (BLUE-PLASMA) [facility] SP ONCE Oct 15, 2022 12:00 AM Laboratory - Chemistry PT & INR (COUMADIN) [facility] B[facility]OD (BLUE-PLASMA) [place] [facility] SP ONCE Oct 29, 2022 12:00 AM Laboratory - Chemistry PT & INR (COUMADIN) [facility] Order BLOOD (BLUE-PLASMA) (631GE) SP ONCE Lab Results: +/- 30 days of the encounter This section includes the Chemistry and Hematology Lab Results on record with [place] for the patient. Radiology Reports and Pathology Reports are provided separately, in subsequent sections.Lab Results This section contains the Chemistry/Hematology Results that were resulted 30 days before or 30 daysafter the date of the Encounter. Date/Time Source Result Type Result - Unit Interpretation Reference Range Comment Oct 02, 2022 12:28 [facility] ETG SCREEN (wx) Specimen Typ e: URINE PM [facility] Comment: CHRISTINE te st are qualitative, any L or H flags only indicate a [facility] alert was sent. This ETG test was developed and its performance characteristics determined by [place] clinical lab. The [place] Food and Cipriano g Administration has not approved or cleared this test, FDA clearance or approval is not currently required for clinical use. ETG cutoff 500 ng/mL CHRISTINE Screens are for medical purposes. For confirmation use CHRISTINE Confirmation Add on Menu in CPRS. Ordering Provid er: BOYD GROSS Report Released Date/Time: Sep 17, 2022 02:57 PM Reporting Lab: [place] [facility] [place] [facility] [address] [facility] [address] Performing Lab: [place] [facility] [place] [facility] [address] [facility] [address] ETG SCREEN (wx) SCREEN POS H Negative Oct 02, 2022 12:28 [place] [facility] METHADONE SCREEN Specimen Ty pe: URINE PM [facility] Comment: CHRISTINE te st are qualitative, any L or H flags only indicate a [facility] alert was sent. Ordering Provid er: BOYD GROSS Report Released Date/Time: Sep 17, 2022 02:57 PM Reporting Lab: [facility] [address] [facility] [address] Performing Lab: [facility] [address] [facility] [address] METHADONE SCREEN None detected(Negative) L Negative Oct 02, 2022 [facility] AMPHETAMINES SCREEN Specimen Ty pe: URINE 12:28 PM [facility] PANEL Comment: Urine with Cr <5 [...] Sep 17, 2022 02:57 PM Reporting Lab: [facility] [address] [facility] [address] Performing Lab: [facility] [address] [facility] [address] AMPHETAMINES SCREEN NONE-DETECTED None-D etected, Cutoff = 1000 ng/mL PH, CHRISTINE 5.6 4-10 CREATININE, CHRISTINE 67.17 >20 SP.GRAVITY, CHRISTINE 1.012 1.003-1.020 Oct 02, 2022 [facility] ALCOHOL, ETHYL URINE Specimen T ype: URINE 12:28 PM [facility] PANEL Comment: Urine with Cr <5 [...] Sep 17, 2022 02:57 PM Reporting Lab: [facility] [address] [facility] [address] Performing Lab: [address] [address] ALCOHOL, ETHYL URINE NONE-DETECTED NONE- DETECTED, cutoff = 10 mg/dL PH, CHRISTINE 5.6 4-10 CREATININE, CHRISTINE 67.17 >20 SP.GRAVITY, CHRISTINE 1.012 1.003-1.020 Oct 02, 2022 [facility] FENTANYL SCREEN Specimen Type: URINE 12:28 PM [facility] PANEL Comment: Urine with Cr [...] Sep 17, 2022 02:57 PM Reporting Lab: [address] [address] Performing Lab: [address] [address] FENTANYL SCREEN NONE-DETECTED Negative: Cutoff = 1.00 ng/mL PH, CHRISTINE 5.6 4-10 CREATININE, CHRISTINE 66.53 >20 SP.GRAVITY, CHRISTINE 1.012 1.003-1.020 Oct 02, 2022 [facility] BENZODIAZEPINES SCREEN Specimen Type: URINE 12:28 PM [facility] PANEL Comment: Urine with Cr <5 [...] 2022 02:57 PM Reporting Lab: [facility] [address] [address] Performing Lab: [address] [address] BENZODIAZEPINES SCREEN NONE-DETECTED Non e-Detected, Cutoff = 200 ng/mL PH, CHRISTINE 5.6 4-10 CREATININE, CHRISTINE 67.17 >20 SP.GRAVITY, CHRISTINE 1.012 1.003-1.020 Oct 02, 2022 [facility] CANNABINOIDS SCREEN Specimen Ty pe: URINE 12:28 PM [facility] PANEL Comment: Urine with Cr <5 [...] Sep 17, 2022 02:57 PM Reporting Lab: [address] [address] Performing Lab: [address] [address] CANNABINOIDS SCREEN NONE-DETECTED None-D etected,Cutoff = 50 ng/mL PH, CHRISTINE 5.6 4-10 CREATININE, CHRISTINE 67.17 >20 SP.GRAVITY, CHRISTINE 1.012 1.003-1.020 Oct 02, 2022 [facility] BUPRENORPHINE SCREEN Specimen T ype: URINE 12:28 PM [facility] PANEL Comment: Urine with Cr <5 [...] Sep 17, 2022 02:57 PM Reporting Lab: [facility] [address] [facility] [address] Performing Lab: [address] [address] BUPRENORPHINE (URINE) NONE-DETECTED None Detected, Cutoff = 10.0 ng/mL PH, CHRISTINE 5.6 4-10 CREATININE, CHRISTINE 67.17 >20 SP.GRAVITY, CHRISTINE 1.012 1.003-1.020 Oct 02, 2022 [facility] COCAINE SCREEN Specimen Type: URINE 12:28 PM [facility] PANEL Comment: Urine with Cr [...] Sep 17, 2022 02:57 PM Reporting Lab: [address] [address] Performing Lab: [address] [address] COCAINE SCREEN NONE-DETECTED None-Detect ed,Cutoff = 300 ng/mL PH, CHRISTINE 5.6 4-10 CREATININE, CHRISTINE 67.17 >20 SP.GRAVITY, CHRISTINE 1.012 1.003-1.020 Oct 02, 2022 [facility] OPIATES SCREEN Specimen Type: URINE 12:28 PM [facility] PANEL Comment: Urine with Cr [...] 2022 02:57 PM Reporting Lab: [facility] [place] [facility] [address] [facility] [address] Performing Lab: [facility] [address] [facility] [address] OPIATES SCREEN NONE-DETECTED None-Detect ed, Cutoff = 300 ng/mL PH, CHRISTINE 5.6 4-10 CREATININE, CHRISTINE 67.17 >20 SP.GRAVITY, CHRISTINE 1.012 1.003-1.020 Oct 02, 2022 [facility] OXYCODONE SCREEN Specimen Type: URINE 12:28 PM [facility] PANEL Comment: Urine with Cr <5 [...] Sep 17, 2022 02:57 PM Reporting Lab: [facility] [address] [facility] [address] Performing Lab: [facility] [address] [facility] [address] OXYCODONE SCREEN POSITIVE HH None-Detected , Cutoff = 100 ng/mL PH, CHRISTINE 5.6 4-10 CREATININE, CHRISTINE 67.17 >20 SP.GRAVITY, CHRISTINE 1.012 1.003-1.020 Oct 02, 2022 12:21 [facility] PT & INR (COUMADIN) Specimen Type: PLASMA PM [facility] No comment enter ed. Ordering Provid er: MAT TAMAYO Report Released Date/Time: Sep 10, 2022 03:46 PM Reporting Lab: [facility] [address] [facility] [address] Performing Lab: [facility] [address] [facility] [address] INR 3.3 PROTIME 38.2 H 10.0-13.1 Aug 26, 2022 12:58 [facility] PT & INR (COUMADIN) Specimen Type: PLASMA PM [facility] No comment enter ed. Ordering Provid er: MAT TAMAYO Report Released Date/Time: Aug 19, 2022 03:07 PM Reporting Lab: [place] [facility] [place] [facility] [address] [facility] [address] Performing Lab: [place] [facility] [facility] [address] [facility] [address] INR 2.5 PROTIME 29.3 H 10.0-13.1 Aug 19, 2022 01:52 [facility] PT & INR (COUMADIN) Specimen Type: PLASMA PM [facility] [facility] No comment enter ed. Ordering Provid er: CIRILO HUNTER Report Released Date/Time: Jul 08, 2022 01:54 PM Reporting Lab: [place] [facility] [place] [facility] [address] [facility] [address] Performing Lab: [place] [facility] [place] [facility] [address] [facility] [address] INR 3.7 PROTIME 43.8 H 10.0-13.1 Social History: Smoking Status (Most current) and Tobacco Use (All prior to encounter date) This section includes the most current, and the historical, smoking and tobacco-related health factors from the [place] facility where the Encounter took place.Current Smoking Status This section includes the most current smoking, or tobacco-related health factor, from the [place] facility where the Encounter took place. Date/Time Current Smoking Status Comment Facility Apr 30, 2022 01:00 PM VA-TOBACCO FORMER USER [place] [facility] [place] [facility] Tobacco Use History This section includes a history of the smoking, or tobacco- related health factors, that were collected on or before the date of the Encounter. The data comes from the [place] facility where the Encounter took place. Date/Time Smoking Status/Tobacco Comment Facility Use Apr 30, 2022 01:00 VA-TOBACCO QUIT 15 YRS OR [facility] PM MORE [place] [facility] Mar 20, 2021 01:00 VA-TOBACCO FORMER USER [facility] PM [place] [facility] Mar 20, 2021 01:00 VA-TOBACCO QUIT 15 YRS OR [facility] PM MORE [place] [facility] January 17, 2020 11:33 VA-TOBACCO FORMER USER [facility] AM [place] [facility] January 17, 2020 11:33 VA-TOBACCO QUIT 15 YRS OR [facility] AM MORE [place] [facility] Nov 23, 2018 01:22 VA-TOBACCO FORMER USER [facility] PM [place] [facility] Nov 23, 2018 01:22 VA-TOBACCO QUIT 15 YRS OR [facility] PM MORE [place] [facility] January 18, 2018 12:53 QUIT TOBACCO USE 1-7 [facility] PM YEARS AGO PT STATES HE STOPP 4 YR AGO [place] [facility] Dec 09, 2016 01:07 QUIT TOBACCO USE > 7 [facility] PM YEARS AGO [place] [facility] Nov 11, 2015 01:13 QUIT TOBACCO USE > 7 [facility] PM YEARS AGO [place] [facility] Nov 19, 2004 03:17 HISTORY OF SMOKING [facility] PM quit 30 yrs ago [place] [facility] Aug 10, 2003 01:03 HISTORY OF SMOKING [facility] PM [place] [facility] Apr 12, 2002 02:36 QUIT TOBACCO USE > 7 [facility] PM [facility] A[facility] Encounter Notes: All associated encounter notes This section contains the clinical notes associated to the Encounter. Date/Time Encounter Note(s) Provider Source Sep 17, 2022 11:46 AM ADMINISTRATIVE NOTE: SALTY LUO [place] [facility] LOCAL TITLE: CCC: SCHEDULING [facility]IST[facility] STANDARD TITLE: ADMINISTRATIVE NOTE DATE OF NOTE: SEP 17, 2022@11:46:21 ENTRY DATE: SEP 17, 2022@11:46:21 AUTHOR: SALTY LUO EXP COSIGNER: URGENCY: STATUS: COMPLETED Patient Demographics Patient Name: KAMLA SCHULTE Patient Primary Address: [address] [place] [address]
[facility] Krunal vick SRAVAN [address] SSN: [id number] Patient : 1945 Patient Age: 76 Caller/Recipient Relation to Patient: Self Progress Note Note Comments: is requesting a call back BERTO from PCP to discuss the medication below. Patient can be reached at . Patient Requesting Follow-Up RTC Patient Expects Callback: No Medications Medications Refill/Renewal Request: OXYCODONE HC L 5MG/APAP 325MG TAB - TAKE 1 TABLET BY MOUTH EVERY 12 HOURS NEEDED FOR ANA N (NEXT FILL 09/28/22) Actions Completed Notified Facility/PACT or Specialty Care Generated message to provider Clinical Contact Center Codes Clinic/Location: V1 CWM PHONE [facility] ADMIN /es/ SALTY LUO Signed: 09/17/2022 11:46 Receipt Acknowledged By: * AWAITING SIGNATURE * ANTONETTE LINDSAY * AWAITING SIGNATURE * AUBREE MAR
--- OUTSIDE RECORDS SUMMARY | 2022-11-03 05:53 | XMS_ITS ---
:1945 Author Organization [facility] rs Address [address] [place] [id number] Support Name Relationship Address Phone EJ SCHULTE Unavailable [address] [place] [address] EJ SCHULTE Unavailable [address] [place] [address] Insurance Providers: All historical and current Section [...] Name to Policy Number Spann WILVER [facility] Aug 23, [id number] [phone] POLY ON,J PATIENT ION 2015 7 3 JUSTIN GEHA FEHB PREFERRED [facility] Aug 23, [id number] [phone] Bertha RICHARDSON PATIENT PROVIDER AL 2012 ALTH 7 136 JUSTIN ORGANIZAT GOV ION (PPO) GEHA FEHB PREFERRED GEHA Aug 23, [id number] [phone] AKUA LIEZTT,J PATIENT PROVIDER DAVID 2012 2 7 136 JUSTIN ORGANIZAT CTION ION (PPO) DENT MEDICARE MEDICARE PART Sep 23, PART A [id number] Bertha FENG PATIENT (WNR) (M) A 2010 [id number] JUSTIN MEDICARE MEDICARE PART Sep 23, PART B [id number] Bertha FENG PATIENT (WNR) (M) B 2010 [id number] 2 JUSTIN Selected Encounter This section includes the information on record at [place] for the Encounter. Date/Time Encounter Type Encounter Description Reason Provider Source Sep 17, 2022 11:22 Outpatient Encounter ADMIN JULIO BRYANTFREDDIE BRIGETTE (JEN) IHEric Encounter Template Text not used by [place] Plan of Treatment: Future Appointments (+ 6 months) and Future Tests (+/- 45 days) The Plan of Treatment section includes future care activities for the patient from all [place] treatmentfacilities. This section includes future appointments and future orders which are active, pending orscheduled.Future Appointments This section includes appointments that were scheduled to occur 6 months from the date of the Encounter, up to a maximum of 20 appointments. The data comes from all [place] treatment facilities. Appointment Date/Time Appointment Type Appointment Facili ty Name Nov 02, 2022 12:10 PM AMBULATORY - MEDICINE [facility] Nov 12, 2022 12:45 PM AMBULATORY MEDICINE [facility] December 23, 2022 01:30 PM AMBULATORY - MEDICINE [facility] December 28, 2022 01:30 PM AMBULATORY - PSYCHIATRY [facility] Active, Pending, and Scheduled Orders This section includes a listing of several types of active, pending, and scheduled orders, including clinic medications orders, diagnostic test orders, procedure orders and consult orders; where the start date of the order is 45 days before the date of the Encounter or 45 days after the date of the Encounter. The data comes from all [place] treatment [facility]. Test Date/Time Test Type Test Details Facility Name Aug 31, 2022 12:00 AM Laboratory - Chemistry CBC AND DIFF (AUTO) [facility] Order BLOOD (LAV-BLOOD) [facility] Aug 31, 2022 12:00 AM Laboratory - Chemistry BNP (Natriuretic [facility] Order Peptide Brain) [facility] BLOOD (LAV-PLASMA) SP Aug 31, 2022 12:00 AM Laboratory - Chemistry PT & INR (PROTIME) [facility] Order BLOOD (BLUE-PLASMA) [facility] SP Aug 31, 2022 12:00 AM Laboratory - Chemistry PTT BLOOD [facility] Order (BLUE-PLASMA) [facility] Sep 09, 2022 12:00 AM Laboratory - Chemistry PT & INR (COUMADIN) [facility] Order BLOOD (BLUE-PLASMA) [facility] SP ONCE Oct 15, 2022 12:00 AM Laboratory - Chemistry PT & INR ([facility]ADIN[facility] Order BLOOD (BLUE-PLASMA) [facility] SP ONCE Oct 29, 2022 12:00 AM Laboratory - Chemistry PT & INR (C[facility]MADIN) [facility] Order BLOOD (BLUE-PLASMA) (631GE) SP ONCE [...] Reference Range Comment Oct 02, 2022 12:28 [facility] (wx) Specimen Typ e: URINE PM [facility] Comment: CHRISTINE te st are qualitative, any L or H flags only indicate a [facility] alert was sent. This ETG test was developed and its performance characteristics determined by [place] clinical lab. The [place] Food and Cipriano g Administration has not approved or cleared this test, FDA clearance or approval is not currently required for clinical use. ETG cutoff 500 ng/mL CHRISTINE Screens are for medical purposes. For confirmation use CHRISTINE Confirmation Add on Menu in CPRS. Ordering Provid er: BOYD GROSS Report Released Date/Time: Sep 17, 2022 02:57 PM Reporting Lab: [place] [facility] [facility] [address] [facility] [address] Performing Lab: [facility] [address] [facility] [address] ETG SCREEN (wx) SCREEN POS H Negative Oct 02, 2022 12:28 [place] [facility] METHADONE SCREEN Specimen Ty pe: URINE PM [facility] Comment: CHRISTINE te st are qualitative, any L or H flags only indicate a [facility] alert was sent. Ordering Provid er: BOYD GROSS Report Released Date/Time: Sep 17, 2022 02:57 PM Reporting Lab: [facility] [address] [facility] [address] Performing Lab: [facility] [address] [facility] [address] METHADONE SCREEN None detected(Negative) L Negative Oct 02, 2022 [facility] FENTANYL SCREEN Specimen Type: URINE 12:28 PM [place] [facility] PANEL Comment: Urine with Cr <5 [...] Sep 17, 2022 02:57 PM Reporting Lab: [facility] [address] [facility] [address] Performing Lab: [facility] [address] [facility] [address] FENTANYL SCREEN NONE-DETECTED Negative: Cutoff = 1.00 ng/mL PH, CHRISTINE 5.6 4-10 CREATININE, CHRISTINE 66.53 >20 SP.GRAVITY, CHRISTINE 1.012 1.003-1.020 Oct 02, 2022 [facility] AMPHETAMINES SCREEN Specimen Ty pe: URINE 12:28 PM [facility] PANEL Comment: Urine with Cr <5 [...] Sep 17, 2022 02:57 PM Reporting Lab: [facility] [address] [facility] [address] Performing Lab: [address] [address] AMPHETAMINES SCREEN NONE-DETECTED None-D etected, Cutoff = 1000 ng/mL PH, CHRISTINE 5.6 4-10 CREATININE, CHRISTINE 67.17 >20 SP.GRAVITY, CHRISTINE 1.012 1.003-1.020 Oct 02, 2022 [facility] WSTRN ALCOHOL, ETHYL URINE Specimen T ype: URINE 12:28 PM [facility] PANEL Comment: Urine with Cr <5 [...] Sep 17, 2022 02:57 PM Reporting Lab: [address] [address] Performing Lab: [address] [address] ALCOHOL, ETHYL URINE NONE-DETECTED NONE- DETECTED, cutoff = 10 mg/dL PH, CHRISTINE 5.6 4-10 CREATININE, CHRISTINE 67.17 >20 SP.GRAVITY, CHRISTINE 1.012 1.003-1.020 Oct 02, [address] [facility] BENZODIAZEPINES SCREEN Specimen Type: URINE 12:28 PM [facility] PANEL Comment: Urine with Cr <5 [...] 2022 02:57 PM Reporting Lab: [place] [facility] [address] [address] Performing Lab: [address] [address] BENZODIAZEPINES SCREEN NONE-DETECTED Non e-Detected, Cutoff = 200 ng/mL PH, CHRISTINE 5.6 4-10 CREATININE, CHRISTINE 67.17 >20 SP.GRAVITY, CHRISTINE 1.012 1.003-1.020 Oct 02, 2022 [facility] CANNABINOIDS SCREEN Specimen Ty pe: URINE 12:28 PM [facility] PANEL Comment: Urine with Cr <5 [...] Sep 17, 2022 02:57 PM Reporting Lab: [address] [address] Performing Lab: [address] [address] CANNABINOIDS SCREEN NONE-DETECTED None-D etected,Cutoff = 50 ng/mL PH, CHRISTINE 5.6 4-10 CREATININE, CHRISTINE 67.17 >20 SP.GRAVITY, CHRISTINE 1.012 1.003-1.020 Oct 02, 2022 [facility] BUPRENORPHINE SCREEN Specimen T ype: URINE 12:28 PM [facility] PANEL Comment: Urine with Cr <5 [...] Sep 17, 2022 02:57 PM Reporting Lab: [facility] [address] [facility] [address] Performing Lab: [address] [address] BUPRENORPHINE (URINE) NONE-DETECTED None Detected, Cutoff = 10.0 ng/mL PH, CHRISTINE 5.6 4-10 CREATININE, CHRISTINE 67.17 >20 SP.GRAVITY, CHRISTINE 1.012 1.003-1.020 Oct 02, 2022 [facility] COCAINE SCREEN Specimen Type: URINE 12:28 PM [facility] PANEL Comment: Urine with Cr <5 [...] Sep 17, 2022 02:57 PM Reporting Lab: [address] [address] Performing Lab: [address] [address] COCAINE SCREEN NONE-DETECTED None-Detect ed,Cutoff = 300 ng/mL PH, CHRISTINE 5.6 4-10 CREATININE, CHRISTINE 67.17 >20 SP.GRAVITY, CHRISTINE 1.012 1.003-1.020 Oct 02, 2022 [facility] OPIATES SCREEN Specimen Type: URINE 12:28 PM [facility] PANEL Comment: Urine with Cr <5 [...] 2022 02:57 PM Reporting Lab: [facility] [place] [facility] [address] [facility] [address] Performing Lab: [facility] [address] [facility] [address] OPIATES SCREEN NONE-DETECTED None-Detect ed, Cutoff = 300 ng/mL PH, CHRISTINE 5.6 4-10 CREATININE, CHRISTINE 67.17 >20 SP.GRAVITY, CHRISTINE 1.012 1.003-1.020 Oct 02, 2022 [facility] OXYCODONE SCREEN Specimen Type: URINE 12:28 PM [facility] PANEL Comment: Urine with Cr <5 [...] Sep 17, 2022 02:57 PM Reporting Lab: [facility] WSTRN [facility] [address] [facility] [address] Performing Lab : [facility] [address] [facility] [address] OXYCODONE SCREEN POSITIVE HH None-Detected , Cutoff = 100 ng/mL PH, CHRISTINE 5.6 4-10 CREATININE, CHRISTINE 67.17 >20 SP.GRAVITY, CHRISTINE 1.012 1.003-1.020 Oct 02, 2022 12:21 [facility] PT & INR (COUMADIN) Specimen Type: PLASMA PM [facility] No comment enter ed. Ordering Provid er: MAT TAMAYO Report Released Date/Time: Sep 10, 2022 03:46 PM Reporting Lab: [facility] [address] [facility] [address] [facility] [address] [facility] [address] INR 3.3 PROTIME 38.2 H 10.0-13.1 Aug 26, 2022 12:58 [facility] PT & INR (COUMADIN) Specimen Type: PLASMA PM [place] [facility] No comment enter ed. Ordering Provid er: MAT TAMAYO Report Released Date/Time: Aug 19, 2022 03:07 PM Reporting Lab: [place] [facility] [facility] [address] [facility] [address] Performing Lab: [place] [facility] [facility] [address] [facility] [address] INR 2.5 PROTIME 29.3 H 10.0-13.1 Aug 19, 2022 01:52 [facility] PT & INR (COUMADIN) Specimen Type: PLASMA PM [place] [facility] No comment enter ed. Ordering Provid er: CIRILO HUNTER Report Released Date/Time: Jul 08, 2022 01:54 PM Reporting Lab: [place] [facility] [place] [facility] [address] [facility] [address] Performing Lab: [place] [facility] [facility] [address] [facility] [address] INR 3.7 PROTIME 43.8 H 10.0-13.1 Social [...] 30, 2022 01:00 PM VA-TOBACCO FORMER USER [place] [facility] [facility] Tobacco Use History This section includes a history of the smoking, or tobacco- related health factors, that were collected on or before the date of the Encounter. The data comes from the [place] facility where the Encounter took place. Date/Time Smoking Status/Tobacco Comment Facility Use Apr 30, 2022 01:00 VA-TOBACCO QUIT 15 YRS OR [facility] PM [place] [facility] Mar 20, 2021 01:00 VA-TOBACCO FORMER USER [facility] PM [place] [facility] Mar 20, 2021 01:00 VA-TOBACCO QUIT 15 YRS OR [facility] PM [place] [facility] January 17, 2020 11:33 VA-TOBACCO FORMER USER [facility] AM [place] [facility] January 17, 2020 11:33 VA-TOBACCO QUIT 15 YRS OR [facility] AM MORE [place] [facility] Nov 23, 2018 01:22 VA-TOBACCO FORMER USER [facility] PM [place] [facility] Nov 23, 2018 01:22 VA-TOBACCO QUIT 15 YRS OR [facility] PM [place] [facility] January 18, 2018 12:53 QUIT TOBACCO USE 1-7 [facility] PM YEARS AGO PT STATES HE STOPP 4 YR AGO [place] [facility] Dec 09, 2016 01:07 QUIT TOBACCO USE > 7 [facility] PM [place]ARS A[place] [facility] Nov 11, 2015 01:13 QUIT TOBACCO USE > 7 [facility] PM YEARS AGO [place] [facility] Nov 19, 2004 03:17 HISTORY OF SMOKING [facility] PM quit 30 yrs ago [place] [facility] Aug 10, 2003 01:03 HISTORY OF SMOKING [facility] PM [place] [facility] Apr 12, 2002 02:36 QUIT TOBACCO USE > 7 [facility] A[facility] Encounter Notes: All associated encounter notes This section contains the clinical notes associated to the Encounter. Date/Time Encounter Note(s) Provider Source Sep 17, 2022 11:22 AM ADMINISTRATIVE NOTE: IWONA JOHNSON [place] [facility] LOCAL TITLE: CCC: [facility]ED[facility] STANDARD TITLE: ADMINISTRATIVE NOTE DATE OF NOTE: SEP 17, 2022@11:22:25 ENTRY DATE: SEP 17, 2022@11:22:25 AUTHOR: IWONA JOHNSON EXP COSIGNER: URGENCY: STATUS: COMPLETED Patient Demographics Patient Name: KAMLA SCHULTE Patient Primary Address: [address] [place] [address]
[facility] navaSRAVAN [address] SSN: [id number] Patient : 1945 Patient Age: 76 Caller/Recipient Relation to Patient: Self Progress Note Note Comments: [place] requesting call b ack from [facility] in regards to medication questions. Vet phone is Clinical Contact Center Codes Clinic/Location: V1 C[address] [facility] ADMIN /es/ IWONA CARREON [address] [facility] AMSA Signed: 09/17/2022 11:22 Receipt Acknowledged By: * AWAITING SIGNATURE * ANTONETTE LINDSAY * AWAITING SIGNATURE * AUBREE MAR
--- OUTSIDE RECORDS SUMMARY | 2022-11-03 05:54 | XMS_ITS | Encounter Summary ---
:1945 Author Organization [facility] rs Address [address] [place] [id number] Support Name Relationship Address Phone EJ SCHULTE Unavailable [address] [place] [address] EJ SCHULTE Unavailable [address] [place] [address] Insurance Providers: All historical and current Section [...] Name to Policy Number Spann WILVER PRESCRIPT [facility] Aug 23, [id number] [phone] POLY NIELSON,J PATIENT ION 2015 7 3 JUSTIN GEHA FEHB PREFERRED [facility] Aug 23, [id number] [phone] Betrha RICHARDSON PATIENT PROVIDER AL 2012 ALTH 7 136 JUSTIN ORGANIZAT GOV ION (PPO) GEHA FEHB PREFERRED GEHA Aug 23, [id number] [phone] AKUA LIZETT,J PATIENT PROVIDER DAVID 2012 2 7 136 JUSTIN ORGANIZAT CTION ION (PPO) DENT MEDICARE MEDICARE PART Sep 23, PART A [id number] Bertha FENG PATIENT (WNR) (M) A 2010 [id number] JUSTIN MEDICARE MEDICARE PART Sep 23, PART B [id number] Bertha FENG PATIENT (WNR) (M) B 2010 [id number] 2 JUSTIN Selected Encounter This section includes the information on record at [place] for the Encounter. Date/Time Encounter Type Encounter Description Reason Provider Source Sep 18, 2022 11:20 Outpatient Encounter PRIMARY CARE/MEDICINE AM I[facility] Encounter Template Text not used by ND Plan of Treatment: Future Appointments (+ 6 months) and Future Tests (+/- 45 days) The Plan of Treatment section includes future care activities for the patient from all [place] treatmentfacilities. This section includes future appointments and future orders which are active, pending orscheduled.Future Appointments This section includes appointments that were scheduled to occur 6 months from the date of the Encounter, up to a maximum of 20 appointments. The data comes from all [place] treatment facilities. Appointment Date/Time Appointment Type Appointment Facili ty Name Nov 02, 2022 12:10 PM AMBULATORY - MEDICINE [facility] Nov 12, 2022 12:45 PM AMBULATORY MEDICINE [facility] December 23, 2022 01:30 PM AMBULATORY - MEDICINE [facility] December 28, 2022 01:30 PM AMBULATORY - PSYCHIATRY [facility] Active, Pending, and Scheduled Orders This section includes a listing of several types of active, pending, and scheduled orders, including clinic medications orders, diagnostic test orders, procedure orders and consult orders; where the start date of the order is 45 days before the date of the Encounter or 45 days after the date of the Encounter. The data comes from all [facility]. Test Date/Time Test Type Test Details Facility Name Aug 31, 2022 12:00 AM Laboratory - Chemistry BNP (Natriuretic [facility] Order Peptide Brain) [facility] BLOOD (LAV-PLASMA) SP Aug 31, 2022 12:00 AM Laboratory - Chemistry PT & INR (PROTIME) [facility] ER BLOOD (BLUE-PLASMA) [facility] SP Aug 31, 2022 12:00 AM Laboratory - Chemistry CBC AND DIFF (AUTO) [facility] Order BLOOD (LAV-BLOOD) [facility] S SP Aug 31, 2022 12:00 AM Laboratory - Chemistry PTT BLOOD [facility] Order (BLUE-PLASMA) [facility] Sep 09, 2022 12:00 AM Laboratory - Chemistry PT & INR ([facility]ADIN) [facility] (BLUE-PLASMA) [facility] SP ONCE Oct 15, 2022 12:00 AM Laboratory - Chemistry PT & INR (COUMADIN) [facility] Order BLOOD (BLUE-PLASMA) [facility] SP ONCE Oct 29, 2022 12:00 AM Laboratory - Chemistry PT & INR (COUMADIN) [facility] Order BLOOD (BLUE-PLASMA) (631GE) SP ONCE Nov 02, 2022 12:00 AM Laboratory - Chemistry PT & INR (COUMADIN) [facility] Order BLOOD (BLUE-PLASMA) (631GE) SP ONCE Lab Results: +/- 30 days of the encounter This section includes the Chemistry and Hematology Lab Results on record with ND for the patient. Radiology Reports and Pathology Reports are provided separately, in subsequent sections.Lab Results This section contains the Chemistry/Hematology Results that were resulted 30 days before or 30 daysafter the date of the Encounter. Date/Time Source Result Type Result - Unit Interpretation Reference Range Comment Oct 02, 2022 12:28 [facility] (wx) Specimen Typ e: URINE PM [place] [facility] Comment: CHRISTINE te st are qualitative, any L or H flags only indicate a VA alert was sent. This ETG test was developed and its performance characteristics determined by [place] clinical lab. The [place] Food and Cipriano g Administration has not approved or cleared this test, FDA clearance or approval is not currently required for clinical use. ETG cutoff 500 ng/mL CHRISTINE Screens are for medical purposes. For confirmation use CHRISTINE Confirmation Add on Menu in CPRS. Ordering Provid er: BOYD GROSS Report Released Date/Time: Sep 17, 2022 02:57 PM Reporting Lab: [facility] [address] [facility] [address] Performing Lab: [facility] [address] [facility] [address] ETG SCREEN (wx) SCREEN POS H Negative Oct 02, 2022 12:28 [facility] METHADONE SCREEN Specimen Ty pe: URINE PM [place] [facility] Comment: CHRISTINE te st are qualitative, any L or H flags only indicate a VA alert was sent. Ordering Provid er: BOYD GROSS Report Released Date/Time: Sep 17, 2022 02:57 PM Reporting Lab: [facility] [address] [facility] [address] Performing Lab: [facility] [address] [facility] [address] METHADONE SCREEN None detected(Negative) L Negative Oct 02, 2022 [facility] AMPHETAMINES SCREEN Specimen Ty pe: URINE 12:28 PM [place] [facility] PANEL Comment: Urine with Cr <5 [...] Sep 17, 2022 02:57 PM Reporting Lab: [facility] [address] [facility] [address] Performing Lab: [facility] [address] [facility] [address] AMPHETAMINES SCREEN NONE-DETECTED None-D etected, Cutoff = 1000 ng/mL PH, CHRISTINE 5.6 4-10 CREATININE, CHRISTINE 67.17 >20 SP.GRAVITY, CHRISTINE 1.012 1.003-1.020 Oct 02, 2022 [facility] S[facility]EN Specimen Type: URINE 12:28 PM [facility] PANEL Comment: Urine with Cr <5 [...] Sep 17, 2022 02:57 PM Reporting Lab: [facility] [address] [facility] [address] Performing Lab: [address] [address] FENTANYL SCREEN NONE-DETECTED Negative: Cutoff = 1.00 ng/mL PH, CHRISTINE 5.6 4-10 CREATININE, CHRISTINE 66.53 >20 SP.GRAVITY, CHRISTINE 1.012 1.003-1.020 Oct 02, 2022 [facility] ALCOHOL, ETHYL URINE Specimen T ype: URINE 12:28 PM [facility] PANEL Comment: Urine with Cr <5 [...] Sep 17, 2022 02:57 PM Reporting Lab: [address] [address] Performing Lab: [address] [address] ALCOHOL, ETHYL URINE NONE-DETECTED NONE- DETECTED, cutoff = 10 mg/dL PH, CHRISTINE 5.6 4-10 CREATININE, CHRISTINE 67.17 >20 SP.GRAVITY, CHRISTINE 1.012 1.003-1.020 Oct 02, 2022 [facility] BENZODIAZEPINES SCREEN Specimen Type: URINE 12:28 PM [facility] PANEL Comment: Urine with Cr <5 [...] Sep 17, 2022 02:57 PM Reporting Lab: [address] [address] Performing Lab: [address] [address] BENZODIAZEPINES SCREEN NONE-DETECTED Non e-Detected, Cutoff = 200 ng/mL PH, CHRISTINE 5.6 4-10 CREATININE, CHRISTINE 67.17 >20 SP.GRAVITY, CHRISTINE 1.012 1.003-1.020 Oct 02, 2022 [facility] CANNABINOIDS SCREEN Specimen Ty pe: URINE 12:28 PM [place] [facility] PANEL Comment: [...] Sep 17, 2022 02:57 PM Reporting Lab: [address] [address] Performing Lab: [address] [address] CANNABINOIDS SCREEN NONE-DETECTED None-D etected,Cutoff = 50 ng/mL PH, CHRISTINE 5.6 4-10 CREATININE, CHRISTINE 67.17 >20 SP.GRAVITY, CHRISTINE 1.012 1.003-1.020 Oct 02, 2022 [facility] BUPRENORPHINE SCREEN Specimen T ype: URINE 12:28 PM [place] [facility] PANEL Comment: [...] may have been adulterated. Ordering Provid er: RENATOBOYD Report Released Date/Time: Sep 17, 2022 02:57 PM Reporting Lab: [facility] [address] [facility] [address] Performing Lab: [address] [address] BUPRENORPHINE (URINE) NONE-DETECTED None Detected, Cutoff = 10.0 ng/mL PH, CHRISTINE 5.6 4-10 CREATININE, CHRISTINE 67.17 >20 SP.GRAVITY, CHRISTINE 1.012 1.003-1.020 Oct 02, 2022 [facility] COCAINE SCREEN Specimen Type: URINE 12:28 PM [facility] PANEL Comment: Urine with Cr <5 [...] Sep 17, 2022 02:57 PM Reporting Lab: [address] [address] Performing Lab: [address] [address] COCAINE SCREEN NONE-DETECTED None-Detect ed,Cutoff = 300 ng/mL PH, CHRISTINE 5.6 4-10 CREATININE, CHRISTINE 67.17 >20 SP.GRAVITY, CHRISTINE 1.012 1.003-1.020 Oct 02, 2022 [facility] OPIATES SCREEN Specimen Type: URINE 12:28 PM [employer] [facility] PANEL Comment: Urine with Cr <5 [...] Sep 17, 2022 02:57 PM Reporting Lab: [facility] [place] [facility] [address] [facility] [address] Performing Lab: [place] [facility] [place] [facility] [address] [facility] [address] OPIATES SCREEN NONE-DETECTED None-Detect ed, Cutoff = 300 ng/mL PH, CHRISTINE 5.6 4-10 CREATININE, CHRISTINE 67.17 >20 SP.GRAVITY, CHRISTINE 1.012 1.003-1.020 Oct 02, 2022 [facility] OXYCODONE SCREEN Specimen Type: URINE 12:28 PM [place] [facility] PANEL Comment: Urine with Cr <5 [...] Sep 17, 2022 02:57 PM Reporting Lab: [facility] [place] [facility] [address] [facility] [address] Performing Lab: [facility] [address] [facility] [address] OXYCODONE SCREEN POSITIVE HH None-Detected , Cutoff = 100 ng/mL PH, CHRISTINE 5.6 4-10 CREATININE, CHRISTINE 67.17 >20 SP.GRAVITY, CHRISTINE 1.012 1.003-1.020 Oct 02, 2022 12:21 [facility] PT & INR (COUMADIN) Specimen Type: PLASMA PM [place] [facility] No comment enter ed. Ordering Provid er: MAT TAMAYO Report Released Date/Time: Sep 10, 2022 03:46 PM Reporting Lab: [facility] [place] [facility] [address] [facility] [address] Performing Lab: [place] [facility] [place] [facility] [address] [facility] [address] INR 3.3 PROTIME 38.2 H 10.0-13.1 Aug 26, 2022 12:58 [facility] PT & INR (COUMADIN) Specimen Type: PLASMA PM [place] [facility] No comment enter ed. Ordering Provid er: MAT TAMAYO Report Released Date/Time: Aug 19, 2022 03:07 PM Reporting Lab: [facility] [place] [facility] [address] [facility] [address] Performing Lab: [facility] [address] [facility] [address] INR 2.5 PROTIME 29.3 H 10.0-13.1 Social History: Smoking Status (Most current) and Tobacco Use (All prior to encounter date) This section includes the most current, and the historical, smoking and tobacco-related health factors from the [place] facility where the Encounter took place.Current Smoking Status This section includes the most current smoking, or tobacco-related health factor, from the [place] facility where the Encounter took place. Date/Time Current Smoking Status Comment Facility Apr 30, 2022 01:00 PM VA-TOBACCO FORMER USER [place] [facility] Tobacco Use History This section includes a history of the smoking, or tobacco- related health factors, that were collected on or before the date of the Encounter. The data comes from the [place] facility where the Encounter took place. Date/Time Smoking Status/Tobacco Comment Facility Use Apr 30, 2022 01:00 VA-TOBACCO QUIT 15 YRS OR [facility] PM [place] [facility] Mar 20, 2021 01:00 VA-TOBACCO FORMER USER [facility] PM [place] [facility] Mar 20, 2021 01:00 VA-TOBACCO QUIT 15 YRS OR [facility] PM [place] [facility] January 17, 2020 11:33 VA-TOBACCO FORMER USER [facility] [place] [facility] January 17, 2020 11:33 VA-TOBACCO QUIT 15 YRS OR [facility] AM MORE [place] [facility] Nov 23, 2018 01:22 VA-TOBACCO FORMER USER [facility] PM [place] [facility] Nov 23, 2018 01:22 VA-TOBACCO QUIT 15 YRS OR [facility] PM [facility] January 18, 2018 12:53 QUIT TOBACCO USE 1-7 [facility] PM YEARS AGO PT STATES HE STOPP 4 YR AGO [facility] Dec 09, 2016 01:07 QUIT TOBACCO USE > 7 [facility] PM YEARS AGO [facility] Nov 11, 2015 01:13 QUIT TOBACCO USE > 7 [facility] PM YEARS AGO [facility] Nov 19, 2004 03:17 HISTORY OF SMOKING [facility] PM quit 30 yrs ago [facility] Aug 10, 2003 01:03 HISTORY OF SMOKING [facility] PM [facility] Apr 12, 2002 02:36 QUIT TOBACCO USE > 7 [facility] PM YEARS AGO [facility] Encounter Notes: All associated encounter notes This section contains the clinical notes associated to the Encounter. 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
--- OUTSIDE RECORDS SUMMARY | 2022-11-03 05:55 | XMS_ITS ---
:1945 Author Organization [facility] rs Address [address] [place] [address] Support Name Relationship Address Phone EJ SCHULTE Unavailable [address] [place] [address] EJ SCHULTE Unavailable [address] [place] [address] Insurance Providers: All historical and current Section [...] Name to Policy Number Spann WILVER PRESCRIPT [facility] Aug 23, [id number] [phone] POLY NIELSON,J PATIENT ION 2015 7 3 JUSTIN GEHA FEHB PREFERRED [facility] Aug 23, [id number] [phone] Bertha RICHARDSON PATIENT PROVIDER AL 2012 ALTH 7 136 JUSTIN ORGANIZAT GOV ION (PPO) GEHA FEHB PREFERRED GEHA Aug 23, [id number] [phone] AKUA LIZETT,J PATIENT PROVIDER DAVID 2012 2 7 136 JUSTIN ORGANIZAT CTION ION (PPO) DENT MEDICARE MEDICARE PART Sep 23, PART A [id number] Bertha FENG PATIENT (WNR) (M) A 2010 [id number] 2 JUSTIN MEDICARE MEDICARE PART Sep 23, PART B [id number] Bertha FENG PATIENT (WNR) (M) B 2010 [id number] 2 JUSTIN Selected Encounter This section includes the information on record at [place] for the Encounter. Date/Time Encounter Type Encounter Reason Provider Source Description Sep 24, 2022 11:17 Outpatient PRIMARY TEREZA HORN AM Encounter CARE/MEDICINE M IHE Encounter Template Text not used by [...] 02, 2022 12:10 PM AMBULATORY - MEDICINE [facility] Nov 12, 2022 12:45 PM AMBULATORY MEDICINE [facility] December 23, 2022 01:30 PM AMBULATORY - MEDICINE [facility] December 28, 2022 01:30 PM AMBULATORY - PSYCHIATRY [facility] Active, Pending, and Scheduled Orders This section includes a listing of several types of active, pending, and scheduled orders, including clinic medications orders, diagnostic test orders, procedure orders and consult orders; where the start date of the order is 45 days before the date of the Encounter or 45 days after the date of the Encounter. The data comes from all [facility]. Test Date/Time Test Type Test Details Facility Name Aug 31, 2022 12:00 AM Laboratory - Chemistry BNP (Natriuretic [facility] Order Peptide Brain) [facility] BLOOD (LAV-PLASMA) SP Aug 31, 2022 12:00 AM Laboratory - Chemistry PT & INR (PROTIME) [facility] Order BLOOD (BLUE-PLASMA) [facility] SP Aug 31, 2022 12:00 AM Laboratory - Chemistry PTT BLOOD [facility] Order (BLUE-PLASMA) SP [facility] Aug 31, 2022 12:00 AM Laboratory - Chemistry CBC AND DIFF (AUTO) [facility] Order BLOOD (LAV-BLOOD) [facility] S SP Sep 09, 2022 12:00 AM Laboratory - Chemistry PT & INR (COUMADIN) [facility] Order BLOOD (BLUE-PLASMA) [facility] SP ONCE Oct 15, 2022 12:00 AM Laboratory - Chemistry PT & INR (COUMADIN) [facility] Order BLOOD (BLUE-PLASMA) [facility] SP ONCE Oct 29, 2022 12:00 AM Laboratory - Chemistry PT & INR (COUMADIN) [facility] Order BLOOD (BLUE-PLASMA) (631GE) SP ONCE Nov 02, 2022 12:00 AM Laboratory - Chemistry PT & INR (COUMADIN) [facility] Order BLOOD (BLUE-PLASMA) (631GE) SP ONCE Lab [...] Reference Range Comment Oct 02, 2022 12:28 [facility] METHADONE SCREEN Specimen Ty pe: [facility]INE [facility] Comment: CHRISTINE te st are qualitative, any L or H flags only indicate a [facility] alert was sent. Ordering Provid er: BOYD GROSS Report Released Date/Time: Sep 17, 2022 02:57 PM Reporting Lab: [facility] [address] [facility] [address] Performing Lab: [facility] [address] [facility] [address] METHADONE SCREEN None detected(Negative) L Negative Oct 02, 2022 12:28 [facility] ETG SCREEN (wx) Specimen Typ e: [facility]INE [facility] Comment: CHRISTINE te st are qualitative, any L or H flags only indicate a [facility] alert was sent. This ETG test was developed and its performance characteristics determined by [place] clinical lab. The [place] Food and Cipriano g Administration has not approved or cleared this test, FDA clearance or approval is not currently required for clinical use. ETG cutoff 500 ng/mL CHRISTINE Screens are for medical purposes. For confirmation use CHRISTINE Confirmation Add on Menu in CPRS. Ordering Provid er: BOYD GROSS Report Released Date/Time: Sep 17, 2022 02:57 PM Reporting Lab: [facility] [address] [facility] [address] Performing Lab: [facility] [address] [facility] [address] ETG SCREEN (wx) SCREEN POS H Negative Oct 02, 2022 [facility] AL[facility]OL, ETHYL URINE Specimen T ype: URINE 12:28 PM [place] [facility] PANEL Comment: Urine with Cr <5 is [...] Sep 17, 2022 02:57 PM Reporting Lab: [facility] [address] [facility] [address] Performing Lab: [facility] [address] [facility] [address] ALCOHOL, ETHYL URINE NONE-DETECTED NONE- DETECTED, cutoff = 10 mg/dL PH, CHRISTINE 5.6 4-10 CREATININE, CHRISTINE 67.17 >20 SP.GRAVITY, CHRISTINE 1.012 1.003-1.020 Oct 02, 2022 [facility] AMPHETAMINES SCREEN Specimen Ty pe: URINE 12:28 PM 'Rock' Your PaperUSETS [facility] PANEL Comment: Urine with Cr <5 is [...] Sep 17, 2022 02:57 PM Reporting Lab: [address] [address] Performing Lab: [address] [address] AMPHETAMINES SCREEN NONE-DETECTED None-D etected, Cutoff = 1000 ng/mL PH, CHRISTINE 5.6 4-10 CREATININE, CHRISTINE 67.17 >20 SP.GRAVITY, CHRISTINE 1.012 1.003-1.020 Oct 02, 2022 [facility] FENTANYL SCREEN Specimen Type: URINE 12:28 PM [facility] PANEL Comment: Urine with Cr <5 is [...] Sep 17, 2022 02:57 PM Reporting Lab: [address] [address] Performing Lab: [address] [address] FENTANYL SCREEN NONE-DETECTED Negative: Cutoff = 1.00 ng/mL PH, CHRISTINE 5.6 4-10 CREATININE, CHRISTINE 66.53 >20 SP.GRAVITY, CHRISTINE 1.012 1.003-1.020 Oct 02, 2022 [facility] BENZODIAZEPINES SCREEN Specimen Type: URINE 12:28 PM [facility] PANEL Comment: Urine with Cr <5 is [...] Sep 17, 2022 02:57 PM Reporting Lab: [facility] [address] [facility] [address] Performing Lab: [address] [address] BENZODIAZEPINES SCREEN NONE-DETECTED Non e-Detected, Cutoff = 200 ng/mL PH, CHRISTINE 5.6 4-10 CREATININE, CHRISTINE 67.17 >20 SP.GRAVITY, CHRISTINE 1.012 1.003-1.020 Oct 02, 2022 [facility] BUPRENORPHINE SCREEN Specimen T ype: URINE 12:28 PM TimecrosUSETS [facility] PANEL Comment: Urine with Cr <5 is [...] Sep 17, 2022 02:57 PM Reporting Lab: [address] [address] Performing Lab: [address] [address] BUPRENORPHINE (URINE) NONE-DETECTED None Detected, Cutoff = 10.0 ng/mL PH, CHRISTINE 5.6 4-10 CREATININE, CHRISTINE 67.17 >20 SP.GRAVITY, CHRISTINE 1.012 1.003-1.020 Oct 02, 2022 [facility] COCAINE SCREEN Specimen Type: URINE 12:28 PM TimecrosUSEReal Intent PANEL Comment: Urine with Cr <5 is [...] may have been adulterated. Ordering Provid er: BYOD GROSS Report Released Date/Time: Sep 17, 2022 02:57 PM Reporting Lab: [facility] [address] [facility] [address] Performing Lab: [facility] [address] [facility] [address] COCAINE SCREEN NONE-DETECTED None-Detect ed,Cutoff = 300 ng/mL PH, CHRISTINE 5.6 4-10 CREATININE, CHRISTINE 67.17 >20 SP.GRAVITY, CHRISTINE 1.012 1.003-1.020 Oct 02, 2022 [facility] OPIATES SCREEN Specimen Type: URINE 12:28 PM TimecrosUSETS [facility] PANEL Comment: Urine with Cr <5 is [...] Sep 17, 2022 02:57 PM Reporting Lab: [facility] [address] [facility] [address] Performing Lab: [facility] [address] [facility] [address] OPIATES SCREEN NONE-DETECTED None-Detect ed, Cutoff = 300 ng/mL PH, CHRISTINE 5.6 4-10 CREATININE, CHRISTINE 67.17 >20 SP.GRAVITY, CHRISTINE 1.012 1.003-1.020 Oct 02, 2022 [facility] OXYCODONE SCREEN Specimen Type: URINE 12:28 PM Cryptopay [facility] PANEL Comment: Urine with Cr <5 is [...] Sep 17, 2022 02:57 PM Reporting Lab: [facility] [address] [facility] [address] Performing Lab: [facility] [address] [facility] [address] OXYCODONE SCREEN POSITIVE HH None-Detected , Cutoff = 100 ng/mL PH, CHRISTINE 5.6 4-10 CREATININE, CHRISTINE 67.17 >20 SP.GRAVITY, CHRISTINE 1.012 1.003-1.020 Oct 02, 2022 [facility] CANNABINOIDS SCREEN Specimen Ty pe: URINE 12:28 PM [facility] PANEL Comment: Urine with Cr <5 [...] Sep 17, 2022 02:57 PM Reporting Lab: [facility] [address] [facility] [address] Performing Lab: [facility] [address] [facility] [address] CANNABINOIDS SCREEN NONE-DETECTED None-D etected,Cutoff = 50 ng/mL PH, CHRISTINE 5.6 4-10 CREATININE, CHRISTINE 67.17 >20 SP.GRAVITY, CHRISTINE 1.012 1.003-1.020 Oct 02, 2022 12:21 [facility] PT & INR (COUMADIN) Specimen Type: PLASMA PM [facility] No comment enter ed. Ordering Provid er: MAT TAMAYO Report Released Date/Time: Sep 10, 2022 03:46 PM Reporting Lab: [facility] [address] [facility] [address] Performing Lab: [place] [facility] [facility] [address] [facility] [address] INR 3.3 PROTIME 38.2 H 10.0-13.1 Aug 26, 2022 12:58 [facility] PT & INR (COUMADIN) Specimen Type: PLASMA PM [place] [facility] No comment enter ed. Ordering Provid er: MAT TAMAYO Report Released Date/Time: Aug 19, 2022 03:07 PM Reporting Lab: [place] [facility] [place] [facility] [address] [facility] [address] Performing Lab: [place] [facility] [place] [facility] [address] [facility] [address] INR 2.5 PROTIME 29.3 H 10.0-13.1 Social [...] 30, 2022 01:00 PM VA-TOBACCO FORMER USER [place] [facility] [facility] Tobacco Use History This section includes a history of the smoking, or tobacco- related health factors, that were collected on or before the date of the Encounter. The data comes from the [place] facility where the Encounter took place. Date/Time Smoking Status/Tobacco Comment Facility Use Apr 30, 2022 01:00 VA-TOBACCO QUIT 15 YRS OR [facility] PM [place] [facility] Mar 20, 2021 01:00 VA-TOBACCO FORMER USER [facility] PM [place] [facility] Mar 20, 2021 01:00 VA-TOBACCO QUIT 15 YRS OR [facility] PM [place] [facility] January 17, 2020 11:33 VA-TOBACCO FORMER USER [facility] [place] [facility] January 17, 2020 11:33 VA-TOBACCO QUIT 15 YRS OR [facility] AM [place] [facility] Nov 23, 2018 01:22 VA-TOBACCO FORMER USER [facility] [place] [facility] Nov 23, 2018 01:22 VA-TOBACCO QUIT 15 YRS OR [facility] PM [facility] January 18, 2018 12:53 QUIT TOBACCO USE 1-7 [facility] PM YEARS AGO PT STATES HE STOPP 4 YR AGO [place] [facility] Dec 09, 2016 01:07 QUIT TOBACCO USE > 7 [facility] PM YEARS AGO [place] [facility] Nov 11, 2015 01:13 QUIT TOBACCO USE > 7 [facility] PM YEARS AGO [place] [facility] Nov 19, 2004 03:17 HISTORY OF SMOKING [facility] PM quit 30 yrs ago [facility] Aug 10, 2003 01:03 HISTORY OF SMOKING [facility] PM [place] [facility] Apr 12, 2002 02:36 QUIT TOBACCO USE > 7 [facility] PM YEARS AGO [facility] Encounter Notes: All associated encounter notes This section contains the clinical notes associated to the Encounter. Date/Time Encounter Note(s) Provider Source Sep 24, 2022 11:17 AM PRIMARY CARE SECURE MESSAGING: STEFFI HORN [facility] LOCAL TITLE: PRIMARY CARE SECURE MESSAGING [facility] STANDARD TITLE: PRIMARY CARE SECURE MESSAGING DATE OF NOTE: SEP 24, 2022@11:17 ENTRY DATE: SEP 24, 2022@11:17:22 AUTHOR: TEREZA HORN EXP COSIGNER: URGENCY: STATUS: COMPLETED PRIMARY CARE SECURE MESSAGING Has ADDENDA * ------Original Message Sent: 09/24/2022 10:34 AM ET From: KMALA SCHULTE To: Kathleen BARNHART_PRIMARY CARE_[facility] Subject: General:Doctor Chad Spencer Below are notes from my doctor at [facility] re garding surgery to be scheduled at [facility]. I will inform you as soon as date has been selected. Thanks again for all your help during this time. Progress Notes Progress Notes signed by Chad Spencer MD at 12:55 PM DATE OF SERVICE: 09/21/2022 Mr. Schulte had been here before for his left sh oulder. He has avascular necrosis and ongoing pain, which is quit e severe. Because of his pacemaker and history of cardiac problems, I had referred him to Dr. Ean Suresh even before that. Dr. Clifford Hopkins. Dr. Hopkins's office never followed up with him and Dr. Suresh's office told him that he could no t have a surgery for two to three months. He came back to me because he hear d that I will be going to [facility] and hope that I could put him on my list to do this at [facility]. There is nothing in the shoulder that junior s is changed today. He has a pacemaker over his medial chest. The last note in the jodie rd from his compliance review specialist is a note by Dr. Kamla Teixeira, which details his car diac problems. He came today accompanied by his son. We will communicate with the chief of anesthesia at [facility], s o that he can take a look at this record and advise as to which compliance review specialist might help to look over him while he is at [facility] after his surgery. Onc e I make this connection and once we follow through on coordinated approach t o make sure that he is fully optimized for surgery, we can proceed with what will be a reverse shoulder replacement. I will do his virtual surgical plan timi based on the CT scan as well. My PA Newton Avendano will principally dire ct this and will be in touch with the patient by phone. Chad Spencer MD at 09/21/2022 1:45 PM [id number] The patient's agenda has been elicited and addre ssed. Chad Spencer M.D. Chief, [facility] Shoulder Service MOIRA/sheri /yeimy/ TEREZA HORN, DEBBIE REGISTERED NURSE Signed: 09/24/2022 11:17 Receipt Acknowledged By: 09/25/2022 09:36 /yeimy/ BOYD GROSS MD STAFF PHYSICIAN 09/29/2022 ADDENDUM STATUS: COMPLETED Declines [facility] optum. Accepts private insurance and makes his own appt s. /es/ MARTY MCKAY,MSN,RN CHOICE RN COORDINATOR Signed: 09/29/2022 15:01
--- OUTSIDE RECORDS SUMMARY | 2022-11-03 05:55 | XMS_ITS ---
:1945 Author Organization [facility] rs Address [address] [place] [address] Support Name Relationship Address Phone EJ SCHULTE Unavailable [address] [place] [address] EJ SCHULTE Unavailable [address] [place] [address] Insurance Providers: All historical and current Section [...] Name to Policy Number Spann WILVER MESSERT [facility] Aug 23, [id number] [phone] POLY NIELSON,J PATIENT ION 2015 7 3 JUSTIN GEHA FEHB PREFERRED [facility] Aug 23, [id number] [phone] Bertha RICHARDSON PATIENT PROVIDER AL 2012 ALTH 7 136 JUSTIN ORGANIZAT GOV ION (PPO) GEHA FEHB PREFERRED GEHA Aug 23, [id number] [phone] AKUA LIZETT,J PATIENT PROVIDER DAVID 2012 2 7 136 JUSTIN ORGANIZAT CTION ION (PPO) DENT MEDICARE MEDICARE PART Sep 23, PART B [id number] Bertha FENG PATIENT (WNR) (M) B 2010 [id number] JUSTIN MEDICARE MEDICARE PART Sep 23, PART A [id number] Bertha FENG PATIENT (WNR) (M) A 2010 [id number] 2 JUSTIN Selected Encounter This section includes the information on record at [place] for the Encounter. Date/Time Encounter Type Encounter Description Reason Provider Source Sep 15, 2022 12:00 Outpatient Encounter EVENT (HISTORICAL) AM IHE Encounter Template Text not used by [place] Plan of Treatment: Future Appointments (+ 6 [...] 02, 2022 12:10 PM AMBULATORY - MEDICINE [facility] Nov 12, 2022 12:45 PM AMBULATORY MEDICINE [facility] December 23, 2022 01:30 PM AMBULATORY - MEDICINE [facility] December 28, 2022 01:30 PM AMBULATORY - PSYCHIATRY [facility] Active, Pending, and Scheduled Orders This section includes a listing of several types of active, pending, and scheduled orders, including clinic medications orders, diagnostic test orders, procedure orders and consult orders; where the start date of the order is 45 days before the date of the Encounter or 45 days after the date of the Encounter. The data comes from all [facility]. Test Date/Time Test Type Test Details Facility Name Aug 31, 2022 12:00 AM Laboratory - Chemistry CBC AND DIFF (AUTO) [facility] Order BLOOD (LAV-BLOOD) [facility] S SP Aug 31, 2022 12:00 AM Laboratory - Chemistry PTT BLOOD [facility] Order (BLUE-PLASMA) SP [facility] Aug 31, 2022 12:00 AM Laboratory - Chemistry PT & INR (PROTIME) [facility] Order BLOOD (BLUE-PLASMA) [facility] SP Aug 31, 2022 12:00 AM Laboratory - Chemistry BNP (Natriuretic [facility] Order Peptide Brain) [facility] BLOOD (LAV-PLASMA) SP Sep 09, 2022 12:00 AM Laboratory - Chemistry PT & INR (C[facility]ADIN) [facility] ONCE Oct 15, 2022 12:00 AM Laboratory - Chemistry PT & INR (COUMADIN) [facility] BLOOD ([facility]ASMA) [facility] SP ONCE Oct 29, 2022 12:00 AM Laboratory - Chemistry PT & INR (COUMADIN) [facility] Order BLOOD (BLUE-PLASMA) (631GE) SP ONCE [...] Reference Range Comment Oct 02, 2022 12:28 [place] [facility] ETG SCREEN (wx) Specimen Typ e: [facility]INE PM [facility] Comment: CHRISTINE te st are qualitative, any L or H flags only indicate a [facility] alert was sent. This ETG test was developed and its performance characteristics determined by [place] clinical lab. The [place] Food and Cipriano g Administration has not approved or cleared this test, FDA clearance or approval is not currently required for clinical use. ETG cutoff 500 ng/mL CHRISTINE Screens are for medical purposes. For confirmation use CHRISTINE Confirmation Add on Menu in CPRS. Ordering Provid er: BOYD GROSS Report Released Date/Time: Sep 17, 2022 02:57 PM Reporting Lab[facility] [place] [facility] [address] [facility] [address] Performing Lab: [facility] [place] [facility] [address] [facility] [address] ETG SCREEN (wx) SCREEN POS H Negative Oct 02, 2022 12:28 [place] [facility] METHADONE SCREEN Specimen Ty pe: URINE PM [place] [facility] Comment: CHRITSINE te st are qualitative, any L or H flags only indicate a VA alert was sent. Ordering Provid er: BOYD GROSS Report Released Date/Time: Sep 17, 2022 02:57 PM Reporting Lab: [facility] [address] [facility] [address] Performing Lab: [facility] [address] [facility] [address] METHADONE SCREEN None detected(Negative) L Negative Oct 02, 2022 [facility] ALCOHOL, ETHYL URINE Specimen T ype: URINE 12:28 PM [place] [facility] PANEL Comment: Urine with Cr <5 is [...] Sep 17, 2022 02:57 PM Reporting Lab: [address] [address] Performing Lab: [facility] [address] ALCOHOL, ETHYL URINE NONE-DETECTED NONE- DETECTED, cutoff = 10 mg/dL PH, CHRISTINE 5.6 4-10 CREATININE, CHRISTINE 67.17 >20 SP.GRAVITY, CHRISTINE 1.012 1.003-1.020 Oct 02, 2022 [facility]TRN AMPHETAMINES SCREEN Specimen Ty pe: URINE 12:28 PM [place] [facility] PANEL Comment: Urine with Cr <5 is [...] Sep 17, 2022 02:57 PM Reporting Lab: [address] [address] Performing Lab: [address] [address] AMPHETAMINES SCREEN NONE-DETECTED None-D etected, Cutoff = 1000 ng/mL PH, CHRISTINE 5.6 4-10 CREATININE, CHRISTINE 67.17 >20 SP.GRAVITY, CHRISTINE 1.012 1.003-1.020 Oct 02, 2022 [facility]TRN FENTANYL SCREEN Specimen Type: URINE 12:28 PM [facility] PANEL Comment: Urine with Cr <5 is [...] Sep 17, 2022 02:57 PM Reporting Lab: [address] [address] Performing Lab: [address] [address] FENTANYL SCREEN NONE-DETECTED Negative: Cutoff = 1.00 ng/mL PH, CHRISTINE 5.6 4-10 CREATININE, CHRISTINE 66.53 >20 SP.GRAVITY, CHRISTINE 1.012 1.003-1.020 Oct 02, 2022 [facility] BENZODIAZEPINES SCREEN Specimen Type: URINE 12:28 PM [facility] PANEL Comment: Urine with Cr <5 is [...] Sep 17, 2022 02:57 PM Reporting Lab: [address] [address] Performing Lab: [address] [address] BENZODIAZEPINES SCREEN NONE-DETECTED Non e-Detected, Cutoff = 200 ng/mL PH, CHRISTINE 5.6 4-10 CREATININE, CHRISTINE 67.17 >20 SP.GRAVITY, CHRISTINE 1.012 1.003-1.020 Oct 02, 2022 [facility] CANNABINOIDS SCREEN Specimen Ty pe: URINE 12:28 PM [facility] PANEL Comment: Urine with Cr <5 is [...] Sep 17, 2022 02:57 PM Reporting Lab: [address] [address] Performing Lab: [address] [address] CANNABINOIDS SCREEN NONE-DETECTED None-D etected,Cutoff = 50 ng/mL PH, CHRISTINE 5.6 4-10 CREATININE, CHRISTINE 67.17 >20 SP.GRAVITY, CHRISTINE 1.012 1.003-1.020 Oct 02, 2022 [facility] BUPRENORPHINE SCREEN Specimen T ype: URINE 12:28 PM [facility] PANEL Comment: Urine with Cr <5 is [...] Sep 17, 2022 02:57 PM Reporting Lab: [place] [address] [facility] [address] Performing Lab: [facility] [address] [facility] [address] BUPRENORPHINE (URINE) NONE-DETECTED None Detected, Cutoff = 10.0 ng/mL PH, CHRISTINE 5.6 4-10 CREATININE, CHRISTINE 67.17 >20 SP.GRAVITY, CHRISTINE 1.012 1.003-1.020 Oct 02, 2022 [facility] COCAINE SCREEN Specimen Type: URINE 12:28 PM [facility] PANEL Comment: Urine with Cr <5 is [...] Sep 17, 2022 02:57 PM Reporting Lab: [facility] [address] [facility] [address] Performing Lab: [address] [address] COCAINE SCREEN NONE-DETECTED None-Detect ed,Cutoff = 300 ng/mL PH, CHRISTINE 5.6 4-10 CREATININE, CHRISTINE 67.17 >20 SP.GRAVITY, CHRISTINE 1.012 1.003-1.020 Oct 02, 2022 [facility] OPIATES SCREEN Specimen Type: URINE 12:28 PM [facility] PANEL Comment: Urine with Cr <5 is [...] Sep 17, 2022 02:57 PM Reporting Lab[facility] [address] [facility] [address] Per[facility]: [facility] [address] [facility] [address] OPIATES SCREEN NONE-DETECTED None-Detect ed, Cutoff = 300 ng/mL PH, CHRISTINE 5.6 4-10 CREATININE, CHRISTINE 67.17 >20 SP.GRAVITY, CHRISTINE 1.012 1.003-1.020 Oct 02, 2022 [facility] OXYCODONE SCREEN Specimen Type: URINE 12:28 PM [facility] PANEL Comment: Urine with Cr <5 [...] Sep 17, 2022 02:57 PM Reporting Lab: [facility] [address] [facility] [address] Performing Lab: [facility] [address] [facility] [address] OXYCODONE SCREEN POSITIVE HH None-Detected , Cutoff = 100 ng/mL PH, CHRISTINE 5.6 4-10 CREATININE, CHRISTINE 67.17 >20 SP.GRAVITY, CHRISTINE 1.012 1.003-1.020 Oct 02, 2022 12:21 [facility] PT [facility] (COUMADIN) Specimen Type: PLASMA PM [facility] No comment enter ed. Ordering Provid er: MAT TAMAYO Report Released Date/Time: Sep 10, 2022 03:46 PM Reporting Lab: [facility] [address] [facility] [address] Performing Lab: [facility] [address] [facility] [address] INR 3.3 PROTIME 38.2 H 10.0-13.1 Aug 26, 2022 12:58 [facility] PT & INR (COUMADIN) Specimen Type: PLASMA PM [place] [facility] No comment enter ed. Ordering Provid er: MAT TAMAYO Report Released Date/Time: Aug 19, 2022 03:07 PM Reporting Lab: [place] [facility] [facility] [address] [facility] [address] Performing Lab: [place] [facility] [facility] [address] [facility] [address] INR 2.5 PROTIME 29.3 H 10.0-13.1 Aug 19, 2022 01:52 [facility] PT & INR (COUMADIN) Specimen Type: PLASMA PM [place] [facility] No comment enter ed. Ordering Provid er: CIRILO HUNTER Report Released Date/Time: Jul 08, 2022 01:54 PM Reporting Lab: [place] [facility] [facility] [address] [facility] [address] Performing Lab: [place] [facility] [place] [facility] [address] [facility] [address] INR 3.7 PROTIME 43.8 H 10.0-13.1 Social [...] 30, 2022 01:00 PM VA-TOBACCO FORMER USER [place] [facility] [facility] Tobacco Use History This section includes a history of the smoking, or tobacco- related health factors, that were collected on or before the date of the Encounter. The data comes from the [place] facility where the Encounter took place. Date/Time Smoking Status/Tobacco Comment Facility Use Apr 30, 2022 01:00 VA-TOBACCO QUIT 15 YRS OR [facility] PM [place] [facility] Mar 20, 2021 01:00 VA-TOBACCO FORMER USER [facility] PM [place] [facility] Mar 20, 2021 01:00 VA-TOBACCO QUIT 15 YRS OR [facility] PM [place] [facility] January 17, 2020 11:33 VA-TOBACCO FORMER USER [facility] AM [place] [facility] January 17, 2020 11:33 VA-TOBACCO QUIT 15 YRS OR [facility] AM MORE [place] [facility] Nov 23, 2018 01:22 VA-TOBACCO FORMER USER [facility] PM [place] [facility] Nov 23, 2018 01:22 VA-TOBACCO QUIT 15 YRS OR [facility] PM MORE [place] [facility] January 18, 2018 12:53 QUIT TOBACCO USE 1-7 [facility] PM YEARS AGO PT STATES HE STOPP 4 YR AGO [place] [facility] Dec 09, 2016 01:07 QUIT TOBACCO USE > 7 [facility] PM YEARS AGO [place] [facility] Nov 11, 2015 01:13 QUIT TOBACCO USE > 7 [facility] PM YEARS AGO [place] [facility] Nov 19, 2004 03:17 HISTORY OF SMOKING [facility] PM quit 30 yrs ago [place] [facility] Aug 10, 2003 01:03 HISTORY OF SMOKING [facility] PM [place] [facility] Apr 12, 2002 02:36 QUIT TOBACCO USE > 7 [facility] PM [facility] A[facility] Encounter Notes: All associated encounter notes This section contains the clinical notes associated to the Encounter. Date/Time Encounter Note(s) Provider Source Sep 15, 2022 12:00 AM NONVA NOTE: [facility] LOCAL TITLE: NON-VA OUTPATIENT NOTES [facility] STANDARD TITLE: NONVA NOTE DATE OF NOTE: SEP 15, 2022 ENTRY DATE: SEP 25 023@10:37:30 AUTHOR: MAGDALENA MILLAN EXP COSIGNER: URGENCY: STATUS: COMPLETED VistA Imaging - Scanned Document SCANNED DOCUMENT SIGNATURE NOT REQUIRED Electronically Filed: 09/25/2022 by: MAGDALENA MILALN FAMILY SERVICES ASSISTANT
--- OUTSIDE RECORDS SUMMARY | 2022-11-03 05:56 | XMS_ITS ---
:1945 Author Organization [facility] rs Address [address] [place] [address] Support Name Relationship Address Phone EJ SCHULTE Unavailable [address] [place] [address] EJ SCHULTE Unavailable [address] [place] [address] Insurance Providers: All historical and current Section [...] Name to Policy Number Spann WILVER MESSERT [facility] Aug 23, [id number] [phone] POLY ON,J PATIENT ION 2015 7 3 JUSTIN GEHA FEHB PREFERRED [facility] Aug 23, [id number] [phone] Bertha RICHARDSON PATIENT PROVIDER AL 2012 ALTH 7 136 JUSTIN ORGANIZAT GOV ION (PPO) GEHA FEHB PREFERRED GEHA Aug 23, [id number] [phone] AKUA LIZETT,J PATIENT PROVIDER DAVID 2012 2 7 136 JUSTIN ORGANIZAT CTION ION (PPO) DENT MEDICARE MEDICARE PART Sep 23, PART A [id number] Bertha FENG PATIENT (WNR) (M) A 2010 [id number] 2 JUSTIN MEDICARE MEDICARE PART Sep 23, PART B [id number] Bertha FENG PATIENT (WNR) (M) B 2010 [id number] 2 JUSTIN Selected Encounter This section includes the information on record at [place] for the Encounter. Date/Time Encounter Type Encounter Description Reason Provider Source Oct 07, 2022 01:17 Outpatient Encounter ADMIN PAT ACTIVTIES PM (JEN) IHE Encounter Template Text not used by [place] Plan of Treatment: Future Appointments (+ 6 months) and Future Tests (+/- 45 days) The Plan of Treatment section includes future care activities for the patient from all [place] treatmentfacilities. This section includes future appointments and future orders which are active, pending orscheduled.Future Appointments This section includes appointments that were scheduled to occur 6 months from the date of the Encounter, up to a maximum of 20 appointments. The data comes from all [place] treatment facilities. Appointment Date/Time Appointment Type Appointment Facili ty Name Nov 02, 2022 12:10 PM AMBULATORY - MEDICINE [facility] Nov 12, 2022 12:45 PM AMBULATORY MEDICINE [facility] December 23, 2022 01:30 PM AMBULATORY - MEDICINE [facility] December 28, 2022 01:30 PM AMBULATORY - PSYCHIATRY [facility] Active, Pending, and Scheduled Orders This section includes a listing of several types of active, pending, and scheduled orders, including clinic medications orders, diagnostic test orders, procedure orders and consult orders; where the start date of the order is 45 days before the date of the Encounter or 45 days after the date of the Encounter. The data comes from all [place] treatment [facility]. Test Date/Time Test Type Test Details Facility Name Aug 31, 2022 12:00 AM Laboratory - Chemistry BNP (Natriuretic [facility] Order Peptide Brain) [facility] BLOOD (LAV-PLASMA) SP Aug 31, 2022 12:00 AM Laboratory - Chemistry CBC AND DIFF (AUTO) [facility] Order BLOOD (LAV-BLOOD) [facility] S SP Aug 31, 2022 12:00 AM Laboratory - Chemistry PT & INR (PROTIME) [facility] Order BLOOD (BLUE-PLASMA) [facility] SP Aug 31, 2022 12:00 AM Laboratory - Chemistry PTT BLOOD [facility] Order (BLUE-PLASMA) [facility] Sep 09, 2022 12:00 AM Laboratory - Chemistry PT & INR (COUMADIN) [facility] Order BLOOD (BLUE-PLASMA) [facility] SP ONCE Oct 15, 2022 12:00 AM Laboratory - Chemistry PT & INR (COUMADIN) [facility] Order BLOOD (BLUE-PLASMA) [facility] SP ONCE Oct 29, 2022 12:00 AM Laboratory - Chemistry PT & INR (COUMADIN) [facility] Order BLOOD (BLUE-PLASMA) (631GE) SP ONCE Nov 02, 2022 12:00 AM Laboratory - Chemistry PT & INR (COUMADIN) [facility] Order BLOOD (BLUE-PLASMA) (631GE) SP ONCE Lab Results: +/- 30 days of the encounter This section includes the Chemistry and Hematology Lab Results on record with [place] for the patient. Radiology Reports and Pathology Reports are provided separately, in subsequent sections.Lab Results This section contains the Chemistry/Hematology Results that were resulted 30 days before or 30 daysafter the date of the Encounter. Date/Time Source Result Type Result - Unit Interpretation Reference Range Comment Oct 02, 2022 12:28 [facility] ETG SCREEN (wx) Specimen Typ e: URINE PM [facility] Comment: CHRISTINE te st are qualitative, any L or H flags only indicate a [facility] alert was sent. This ETG test was developed and its performance characteristics determined by [place] clinical lab. The [place] Food and Cipriano g Administration has not approved or cleared this test, FDA clearance or approval is not currently required for clinical use. ETG cutoff 500 ng/mL CHRISTINE Screens are for medical purposes. For confirmation use CHRISTINE Confirmation Add on Menu in CPRS. Ordering Provid er: BOYD GROSS Report Released Date/Time: Sep 17, 2022 02:57 PM Reporting Lab: [facility] [address] [facility] [address] Performing Lab: [facility] [address] [facility] [address] ETG SCREEN (wx) SCREEN POS H Negative Oct 02, 2022 12:28 [facility] METHADONE SCREEN Specimen Ty pe: URINE PM [facility] Comment: CHRISTINE te st are qualitative, any L or H flags only indicate a [facility] alert was sent. Ordering Provid er: BOYD GROSS Report Released Date/Time: Sep 17, 2022 02:57 PM Reporting Lab: [facility] [address] [facility] [address] Performing Lab: [facility] [address] [facility] [address] METHADONE SCREEN None detected(Negative) L Negative Oct 02, 2022 [facility] ALCO[facility]OL, ETHYL URINE Specimen T ype: URINE 12:28 PM [place] [facility] PANEL Comment: Urine with Cr <5 [...] Sep 17, 2022 02:57 PM Reporting Lab: [facility] [address] [facility] [address] Performing Lab: [facility] [address] [facility] [address] ALCOHOL, ETHYL URINE NONE-DETECTED NONE- DETECTED, cutoff = 10 mg/dL PH, CHRISTINE 5.6 4-10 CREATININE, CHRISTINE 67.17 >20 SP.GRAVITY, CHRISTINE 1.012 1.003-1.020 Oct 02, 2022 [facility] FENTANYL SCREEN Specimen Type: URINE 12:28 PM [place] [facility] PANEL Comment: Urine with Cr <5 [...] Sep 17, 2022 02:57 PM Reporting Lab: [address] [address] Performing Lab: [address] [address] FENTANYL SCREEN NONE-DETECTED Negative: Cutoff = 1.00 ng/mL PH, CHRISTINE 5.6 4-10 CREATININE, CHRISTINE 66.53 >20 SP.GRAVITY, CHRISTINE 1.012 1.003-1.020 Oct 02, 2022 [facility]N AMPHETAMINES SCREEN Specimen Ty pe: URINE 12:28 [...] Sep 17, 2022 02:57 PM Reporting Lab: [address] [address] Performing Lab: [address] [address] AMPHETAMINES SCREEN NONE-DETECTED None-D etected, Cutoff = 1000 ng/mL PH, CHRISTINE 5.6 4-10 CREATININE, CHRISTINE 67.17 >20 SP.GRAVITY, CHRISTINE 1.012 1.003-1.020 Oct 02, 2022 [facility] BUPRENORPHINE SCREEN Specimen T ype: URINE 12:28 PM [place] [facility] PANEL Comment: Urine with Cr <5 is [...] Sep 17, 2022 02:57 PM Reporting Lab: [address] [address] Performing Lab: [address] [address] BUPRENORPHINE (URINE) NONE-DETECTED None Detected, Cutoff = 10.0 ng/mL PH, CHRISTINE 5.6 4-10 CREATININE, CHRISTINE 67.17 >20 SP.GRAVITY, CHRISTINE 1.012 1.003-1.020 Oct 02, 2022 [facility] WSTRN BENZODIAZEPINES SCREEN Specimen Type: URINE 12:28 PM [facility] [facility] PANEL Comment: Urine with Cr <5 [...] Sep 17, 2022 02:57 PM Reporting Lab: [facility] [address] [address] Performing Lab: [address] [address] BENZODIAZEPINES SCREEN NONE-DETECTED Non e-Detected, Cutoff = 200 ng/mL PH, CHRISTINE 5.6 4-10 CREATININE, CHRISTINE 67.17 >20 SP.GRAVITY, CHRISTINE 1.012 1.003-1.020 Oct 02, 2022 [facility] W[facility]N CANNABINOIDS SCREEN Specimen Ty pe: URINE 12:28 PM [employer] [facility] PANEL Comment: Urine with Cr <5 [...] Sep 17, 2022 02:57 PM Reporting Lab: [facility] [address] [facility] [address] Performing Lab: [facility] [address] [facility] [address] CANNABINOIDS SCREEN NONE-DETECTED None-D etected,Cutoff = 50 ng/mL PH, CHRISTNIE 5.6 4-10 CREATININE, CHRISTINE 67.17 >20 SP.GRAVITY, CHRISTINE 1.012 1.003-1.020 Oct 02, 2022 [facility] W[facility] COCAINE SCREEN Specimen Type: URINE 12:28 PM [place] [facility] PANEL Comment: Urine with Cr <5 is [...] Sep 17, 2022 02:57 PM Reporting Lab: [facility] [address] [facility] [address] Performing Lab: [address] [address] COCAINE SCREEN NONE-DETECTED None-Detect ed,Cutoff = 300 ng/mL PH, CHRISTINE 5.6 4-10 CREATININE, CHRISTINE 67.17 >20 SP.GRAVITY, CHRISTINE 1.012 1.003-1.020 Oct 02, 2022 [facility] OXYCODONE SCREEN Specimen Type: URINE 12:28 PM [employer] PANEL Comment: Urine with Cr <5 is [...] Sep 17, 2022 02:57 PM Reporting Lab: [facility] [address] [facility] [address] Performing Lab: [facility] [address] [facility] [address] OXYCODONE SCREEN POSITIVE HH None-Detected , Cutoff = 100 ng/mL PH, CHRISTINE 5.6 4-10 CREATININE, CHRISTINE 67.17 >20 SP.GRAVITY, CHRISTINE 1.012 1.003-1.020 Oct 02, 2022 [facility] OPIATES SCREEN Specimen Type: URINE 12:28 PM [facility] PANEL Comment: Urine with Cr <5 [...] Sep 17, 2022 02:57 PM Reporting Lab: [facility] [address] [facility] [address] Performing Lab: [facility] [address] [facility] [address] OPIATES SCREEN NONE-DETECTED None-Detect ed, Cutoff = 300 ng/mL PH, CHRISTINE 5.6 4-10 CREATININE, CHRISTINE 67.17 >20 SP.GRAVITY, CHRISTINE 1.012 1.003-1.020 Oct 02, 2022 12:21 [facility] PT & INR (COUMADIN) Specimen Type: PLASMA PM [facility] No comment enter ed. Ordering Provid er: MAT TAMAYO Report Released Date/Time: Sep 10, 2022 03:46 PM Reporting Lab: [facility] [address] [facility] [address] Performing Lab: [facility] [place] [address] [place] [address] INR 3.3 PROTIME 38.2 H 10.0-13.1 Social History: Smoking Status (Most current) and Tobacco Use (All prior to encounter date) This section includes the most current, and the historical, smoking and tobacco-related health factors from the [place] facility where the Encounter took place.Current Smoking Status This section includes the most current smoking, or tobacco-related health factor, from the [place] facility where the Encounter took place. Date/Time Current Smoking Status Comment Facility Apr 30, 2022 01:00 PM VA-TOBACCO FORMER USER [facility] [place] [facility] Tobacco Use History This section includes a history of the smoking, or tobacco- related health factors, that were collected on or before the date of the Encounter. The data comes from the [place] facility where the Encounter took place. Date/Time [...] YEARS AGO [place] [facility] Nov 19, 2004 03:17 HISTORY OF SMOKING [facility] PM quit 30 yrs ago [place] [facility] Aug 10, 2003 01:03 HISTORY OF SMOKING [facility] PM [place] [facility] Apr 12, 2002 02:36 QUIT TOBACCO USE > 7 [facility] PM YEARS AGO [place] [facility] Encounter Notes: All associated encounter notes This section contains the clinical notes associated to the Encounter. Date/Time Encounter Note(s) Provider Source Oct 07, 2022 01:17 ADMINISTRATIVE NOTE: DOMINIQUE CANALES [facility] PM LOCAL TITLE: CCC: SCHEDULING ADMINISTRATION [facility] STANDARD TITLE: ADMINISTRATIVE NOTE DATE OF NOTE: OCT 07, 2022@13:17:05 ENTRY DATE: OCT 07, 2022@13:17:05 AUTHOR: DOMINIQUE CANALES EXP COSIGNER: URGENCY: STATUS: COMPLETED CCC: SCHEDULING ADMINISTRATION Has ADDENDA Patient Demographics Patient Name: KAMLA SCHULTE Patient Primary Phone: [phone] Patient Primary Address: [address] [place] [phone] Patient : 1945 Patient Age: 76 SSN: [id number] Caller/Recipient Relation to Patient: Self Clinical Contact Center Codes Clinic/Location: V1 CWM PHONE CCC ADMIN Notes Additional Notes & Information: Please renew and send: OXYCODONE HCL 5MG/APAP 325MG TAB /es/ DOMINIQUE MUNOZN 1 [facility] Signed: 10/07/2022 13:17 Receipt Acknowledged By: 10/07/2022 16:46 /yeimy/ BOYD GROSS MD STAFF PHYSICIAN 10/07/2022 13:32 /es/ CHRIS GO, RN REGISTERED NURSE for AUBREE BAUTISTAANSLEY 10/07/2022 ADDENDUM STATUS: COMPLETED Next refill is not due until October 26 /yeimy/ BOYD GROSS MD STAFF PHYSICIAN Signed: 10/07/2022 16:49
--- OUTSIDE RECORDS SUMMARY | 2022-11-03 05:56 | XMS_ITS | Encounter Summary ---
:1945 Author Organization [facility] rs Address [address] [place] [address] Support Name Relationship Address Phone EJ SCHULTE Unavailable [address] [place] [address] EJ SCHULTE Unavailable [address] [place] [address] Insurance Providers: All historical and current Section [...] Name to Policy Number Spann WILVER MESSERT [facility] Aug 23, [id number] [phone] POLY NIELSON,J PATIENT ION 2015 7 3 JUSTIN GEHA FEHB PREFERRED [facility] Aug 23, [id number] [phone] Bertha RICHARDSON PATIENT PROVIDER AL 2012 ALTH 7 136 JUSTIN ORGANIZAT GOV ION (PPO) GEHA FEHB PREFERRED GE[facility] Aug 23, [id number] [phone] AKUA LIZETT,J PATIENT PROVIDER DAVID 2012 2 7 136 JUSTIN ORGANIZAT CTION ION (PPO) DENT MEDICARE MEDICARE PART Sep 23, PART A [id number] Bertha FENG PATIENT (WNR) (M) A 2010 [id number] 2 JUSTIN MEDICARE MEDICARE PART Sep 23, PART B [id number] Bertha FENG PATIENT (WNR) (M) B 2010 [id number] 2 JUSTIN Selected Encounter This section includes the information on record at MD for the Encounter. Date/Time Encounter Type Encounter Description Reason Provider Source Jun 29, 2022 12:00 Outpatient Encounter EVENT (HISTORICAL) AM IHE Encounter Template Text not used by MD Plan of Treatment: Future Appointments (+ 6 months) and Future Tests (+/- 45 days) The Plan of Treatment section includes future care activities for the patient from all [place] treatmentfacilities. This section includes future appointments and future orders which are active, pending orscheduled.Future Appointments This section includes appointments that were scheduled to occur 6 months from the date of the Encounter, up to a maximum of 20 appointments. The data comes from all [facility]. Appointment Date/Time Appointment Type Appointment Facili ty Name Jul 30, 2022 01:30 PM AMBULATORY [facility] Aug 07, 2022 02:00 PM AMBULATORY MEDICINE [facility] [place] [facility] Nov 02, 2022 12:10 PM AMBULATORY MEDICINE [facility] [place] [facility] Nov 12, 2022 12:45 PM AMBULATORY MEDICINE [facility] [place] [facility] December 23, 2022 01:30 PM AMBULATORY MEDICINE [facility] [place] [facility] Active, Pending, and Scheduled Orders This section includes a listing of several types of active, pending, and scheduled orders, including clinic medications orders, diagnostic test orders, procedure orders and consult orders; where the start date of the order is 45 days before the date of the Encounter or 45 days after the date of the Encounter. The data comes from all [facility]. Test Date/Time Test Type Test Details Facility Name Jun 24, 2022 08:49 AM Consult Order COMMUNITY CARE-DENTAL MD C [facility] SPECIALTY Cons [place] [facility] Insole Lip [facility] Jul 06, 2022 05:16 PM Consult [facility] GENERAL Cons [place] [facility] Insole Lip [facility] Lab Results: +/- 30 days of the encounter This section includes the Chemistry and Hematology Lab Results on record with MD for the patient. Radiology Reports and Pathology Reports are provided separately, in subsequent sections.Lab Results This section contains the Chemistry/Hematology Results that were resulted 30 days before or 30 daysafter the date of the Encounter. Date/Time Source Result Type Result - Unit Interpretation Reference Range Comment Jul 08, 2022 10:56 AM [facility] [place] PT & INR (COUMADIN) Speci men Type: PLASMA No comment enter ed. Ordering Provid er: SUDHEER KEENAN Report Released Date/Time: Jun 11, 2022 04:07 PM Reporting Lab: [facility] [place] [facility] [address] [facility] [address] Performing Lab: [facility] [place] [facility] [address] [facility] [address] INR 2.7 PROTIME 31.6 H 10.0-13.1 Jun 11, 2022 [facility] LIPID PANEL FASTING Specimen Ty pe: SERUM 10:02 AM [place] [facility] No comment enter ed. Ordering Provid er: BOYD GROSS Report Released Date/Time: Jun 04, 2022 02:50 PM Reporting Lab: [facility] [place] [facility] [address] [facility] [address] Performing Lab: [facility] [place] [facility] [address] [facility] [address] CHOLESTEROL 113 <7-199 TRIGLYCERIDE 150 0-150 LDL calculated 37 0-129 CHOL/HDL 2.5 HDL CHOLESTEROL 46 40-60 Jun 11, 2022 [facility] HEMOGLOBIN A1C Specimen Type: BLOOD 10:02 AM [facility] PANEL Comment: Values obtained from A1C measurements can vary. For atypical A1C assays, a reported value of 7.0 could actually be between 6.72 and 7.28 if measured by a reference method. A reported value of 9.0 could actual ly be between 8.73 and 9.27. Ref: http://www.ngsp.org/CAPdata.asp Ordering Provid er: BOYD GROSS Report Released Date/Time: Jun 04, 2022 02:50 PM Reporting Lab: [facility] [place] [facility] [address] [facility] [address] Performing Lab: [facility] [place] [facility] [address] [facility] [address] HEMOGLOBIN A1C 5.4 4.0-5.6 Jun 11, 2022 10:02 [facility] LIVER FUNCTION Specimen Typ e: SERUM AM [place] [facility] No comment enter ed. Ordering Provid er: BOYD GROSS Report Released Date/Time: Jun 04, 2022 02:50 PM Reporting Lab: [facility] [place] [facility] [address] [facility] [address] Performing Lab: [facility] [place] [facility] [address] [facility] [address] PROTEIN,TOTAL 6.9 6.0-8.3 ALBUMIN 3.8 3.5-5.0 ALKALINE PHOSPHATASE 97 40-150 AST 24 5-34 ALT 17 <6-55 BILIRUBIN, TOTAL 0.9 0.2-1.2 Jun 11, 2022 [facility] BASIC METABOLIC Specimen Type: SERUM 10:02 AM [place] [facility] PANEL (fasting) No comment enter ed. Ordering Provid er: BOYD GROSS Report Released Date/Time: Jun 04, 2022 02:50 PM Reporting Lab: [facility] [place] [facility] [address] [facility] [address] Performing Lab: [facility] TRN [place] [facility] [address] [facility] [address] UREA NITROGEN 12 7-25 GLUCOSE 108 H 65-100 SODIUM 138 135-145 POTASSIUM 4.2 3.5-5.0 CHLORIDE 107 100-110 CO2 22 20-30 CREATININE, Serum 0.80 0.50-1.40 eGFR(CKD-EPI 2020) >90 >60 Jun 11, 2022 10:02 [facility] CBC AND DIFF Specimen Typ e: BLOOD AM [place] [facility] (AUTO) No comment enter ed. Ordering Provid er: BOYD GROSS Report Released Date/Time: Jun 04, 2022 02:50 PM Reporting Lab: [facility] [place] [facility] [address] [facility] [address] Performing Lab: [facility] [place] [facility] [address] [facility] [address] WBC 6.46 4.50-11.00 RBC 4.54 4.23-5.66 HGB 14.1 12.8-17 HCT 40.7 39.2-50.4 MCV 89.6 82-99 MCHC 34.6 30.8-35.1 PLT 227 140-360 RDW-CV 12.3 12.0-16.0 Christian, Abs 0.51 0.30-1.10 MCH 31.1 26.2-32.6 Neut % 66.4 Lymph % 17.2 Christian % 7.9 Eos % 7.1 Baso % 1.1 Neut, Abs 4.29 2.20-7.60 Lymph, Abs 1.11 1.00-3.20 Eos, Abs 0.46 H 0.03-0.44 Baso, Abs 0.07 0.01-0.13 Immature Gran % 0.3 Immature Gran, Abs 0.02 0.00-0.06 Jun 11, 2022 10:02 AM [facility] [facility] PT & INR (COUMADIN) Speci men Type: PLASMA No comment enter ed. Ordering Provid er: CIRILO HUNTER Report Released Date/Time: May 20, 2022 12:37 PM Reporting Lab: [address] [address] Performing Lab: [address] [address] INR 2.5 PROTIME 28.4 H 10.0-13.1 Social History: Smoking Status (Most current) and Tobacco Use (All prior to encounter date) This section includes the most current, and the historical, smoking and tobacco-related health factors from the MD facility where the Encounter took place.Current Smoking Status This section includes the most current smoking, or tobacco-related health factor, from the MD facility where the Encounter took place. Date/Time Current Smoking Status Comment Facility Apr 30, 2022 01:00 PM VA-TOBACCO FORMER USER [facility] Tobacco Use History This section includes a history of the smoking, or tobacco- related health factors, that were collected on or before the date of the Encounter. The data comes from the MD facility where the Encounter took place. Date/Time Smoking Status/Tobacco Comment Facility Use Apr 30, 2022 01:00 MD-TOBACCO QUIT 15 [facility]RS [facility] Mar 20, 2021 01:00 VA-TOBACCO FORMER USER [facility] PM [place] [facility] Mar 20, 2021 01:00 VA-TOBACCO QUIT 15 YRS OR [facility] PM MORE [place] [facility] January 17, 2020 11:33 VA-TOBACCO FORMER USER [facility] AM [place] [facility] January 17, 2020 11:33 VA-TOBACCO QUIT 15 YRS OR [facility] AM MORE [place] [facility] Nov 23, 2018 01:22 VA-TOBACCO FORMER USER [facility] PM [place] [facility] Nov 23, 2018 01:22 VA-TOBACCO QUIT 15 YRS OR [facility] PM MORE [place] [facility] January 18, 2018 12:53 QUIT TOBACCO USE 1-7 [facility] PM YEARS AGO PT STATES HE STOPP 4 YR AGO [place] [facility] Dec 09, 2016 01:07 QUIT TOBACCO USE > 7 [facility] PM YEARS AGO [place] [facility] Nov 11, 2015 01:13 QUIT TOBACCO USE > 7 [facility] PM YEARS AGO [place] [facility] Nov 19, 2004 03:17 HISTORY OF SMOKING [facility] PM quit 30 yrs ago [place] [facility] Aug 10, 2003 01:03 HISTORY OF SMOKING [facility] PM [place] [facility] Apr 12, 2002 02:36 QUIT TOBACCO USE > 7 [facility] PM [facility] Encounter Notes: All associated encounter notes This section contains the clinical notes associated to the Encounter. Date/Time Encounter Note(s) Provider Source Jun 29, 2022 12:00 AM NONVA NOTE: [facility] LOCAL TITLE: NON-VA OUTPATIENT NOTES [facility] STANDARD TITLE: NONVA NOTE DATE OF NOTE: JUN 29, 2022 ENTRY DATE: SEP 25 023@11:19:34 AUTHOR: AMELIA LUCIA EXP COSIGNER: URGENCY: STATUS: COMPLETED VistA Imaging - Scanned Document SCANNED DOCUMENT SIGNATURE NOT REQUIRED Electronically Filed: 09/25/2022 by: AMELIA LUCIA LPN LICENSED PRACTICAL NURSE
--- OUTSIDE RECORDS SUMMARY | 2022-11-03 05:56 | XMS_ITS ---
:1945 Author Organization [facility] rs Address [address] [place] [address] Support Name Relationship Address Phone EJ SCHULTE Unavailable [address] [place] [address] EJ SCHULTE Unavailable [address] [place] [address] Insurance Providers: All historical and current Section [...] WILVER MESSERT [facility] Aug 23, [id number] [phone] POLY ON,J PATIENT ION 2015 7 3 JUSTIN GEHA FEHB PREFERRED [facility] Aug 23, [id number] [phone] Bertha RICHARDSON PATIENT PROVIDER AL 2012 ALTH 7 136 JUSTIN ORGANIZAT GOV ION (PPO) GEHA FEHB PREFERRED GEHA Aug 23, [id number] [phone] AKUA KARLOSON,J PATIENT PROVIDER DAVID 2012 2 7 136 JUSTIN ORGANIZAT CTION ION (PPO) DENT MEDICARE MEDICARE PART Sep 23, PART B [id number] Bertha FENG PATIENT (WNR) (M) B [id number] 2 JUSTIN MEDICARE MEDICARE PART Sep 23, PART A [id number] Bertha FENG PATIENT (WNR) (M) A 2010 [id number] JUSTIN Selected Encounter This section includes the information on record at [place] for the Encounter. Date/Time Encounter Type Encounter Reason Provider Source Description Oct 02, 2022 HC PRO PHONE TELEPHONE/ANCILLA ICD-10-CM Z51.81 VIANEY MEEKS 02:06 PM CALL 5-10 MIN RY Encounter for [place] therapeutic drug level monitoring with Provider Comments: Therapeutic Drug Level Monitoring IHE Encounter Template Text not used by [facility] Assessments - Encounter Diagnoses This section includes the primary and secondary diagnoses documented for the Encounter. 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) [facility] 02[facility]06 PM use of [facility] anticoagulants [...] 02, 2022 12:10 PM [facility] [place] [facility] Nov 12, 2022 12:45 PM [facility] [place] [facility] December 23, 2022 01:30 PM [facility] [place] [facility] December 28, 2022 01:30 PM AMBULATORY - PSYCHIATRY [facility] [place] [facility] Active, Pending, and Scheduled Orders This section [...] Laboratory - Chemistry CBC AND DIFF (AUTO) [facility] Order BLOOD (LAV-BLOOD) [facility] S SP Aug 31, 2022 12:00 AM Laboratory - Chemistry BNP (Natriuretic [facility] Order Peptide Brain) [facility] BLOOD (LAV-PLASMA) SP Aug 31, 2022 12:00 AM Laboratory - Chemistry PTT BLOOD [facility] Order (BLUE-PLASMA) [facility] Aug 31, 2022 12:00 AM Laboratory - Chemistry PT & INR (PROTIME) [facility] Order BLOOD (BLUE-PLASMA) [place] [facility] SP Sep 09, 2022 12:00 AM Laboratory - Chemistry PT & INR (COUMADIN) [place] [facility] Order BLOOD (BLUE-PLASMA) [facility] SP ONCE Oct 15, 2022 12:00 AM Laboratory - Chemistry PT & INR (COUMADIN) [place] [facility] Order BLOOD (BLUE-PLASMA) [facility] SP ONCE Oct 29, 2022 12:00 AM Laboratory - Chemistry PT & INR (COUMADIN) [facility] Order BLOOD (BLUE-PLASMA) (631GE) SP ONCE Nov 02, 2022 12:00 AM Laboratory - Chemistry PT & INR (COUMADIN) [facility] Order BLOOD (BLUE-PLASMA) (631GE) SP ONCE [...] Reference Range Comment Oct 02, 2022 12:28 [place] [facility] METHADONE SCREEN Specimen Ty pe: URINE PM [facility] Comment: CHRISTINE te st are qualitative, any L or H flags only indicate a VA alert was sent. Ordering Provid er: BOYD GROSS Report Released Date/Time: Sep 17, 2022 02:57 PM Reporting Lab: [facility] WSTRN [address] [address] Performing Lab: [facility] [address] [facility] [address] METHADONE SCREEN None detected(Negative) L Negative Oct 02, 2022 12:28 [facility] ETG SCREEN (wx) Specimen Typ e: URINE PM [facility] Comment: CHRISTINE te st are qualitative, any L or H flags only indicate a VA alert was sent. This ETG test was developed and its performance characteristics determined by [place] clinical lab. The [place] Food and Cipriano g Administration has not approved or cleared this test, FDA clearance or approval is not currently required for clinical use. ETG cutoff 500 ng/mL CHRISTINE Screens are for medical purposes. For confirmation use CHRISTINE Confirmation Add on Menu in CPRS. Ordering Provid er: BOYD GROSS Report Released Date/Time: Sep 17, 2022 02:57 PM Reporting Lab: [address] [address] Performing Lab: [facility] [address] [facility] [address] ETG SCREEN (wx) SCREEN POS H Negative Oct 02, 2022 [facility] ALCOHOL, ETHYL URINE Specimen T ype: URINE 12:28 PM [facility] PANEL Comment: Urine with Cr <5 [...] Sep 17, 2022 02:57 PM Reporting Lab: [facility] [address] Performing Lab: [address] [address] ALCOHOL, ETHYL URINE NONE-DETECTED NONE- DETECTED, cutoff = 10 mg/dL PH, CHRISTINE 5.6 4-10 CREATININE, CRHISTINE 67.17 >20 SP.GRAVITY, CHRISTINE 1.012 1.003-1.020 Oct 02, 2022 [facility] AMPHETAMINES SCREEN Specimen Ty pe: URINE 12:28 PM [facility] PANEL Comment: Urine with Cr <5 is [...] Sep 17, 2022 02:57 PM Reporting Lab: [address] [address] Performing Lab: [address] [address] AMPHETAMINES SCREEN NONE-DETECTED None-D etected, Cutoff = 1000 ng/mL PH, CHRISTINE 5.6 4-10 CREATININE, CHRISTINE 67.17 >20 SP.GRAVITY, CHRISTINE 1.012 1.003-1.020 Oct 02, 2022 [facility] [place] FENTANYL SCREEN Specimen Type: URINE 12:[address] [facility] PANEL Comment: Urine with Cr <5 is [...] Sep 17, 2022 02:57 PM Reporting Lab: [address] [address] Performing Lab: [address] [address] FENTANYL SCREEN NONE-DETECTED Negative: Cutoff = 1.00 ng/mL PH, CHRISTINE 5.6 4-10 CREATININE, CHRISTINE 66.53 >20 SP.GRAVITY, CHRISTINE 1.012 1.003-1.020 Oct 02, 2022 [facility] WSTRN BENZODIAZEPINES SCREEN Specimen Type: URINE 12:28 PM [facility] PANEL Comment: Urine with Cr [...] Sep 17, 2022 02:57 PM Reporting Lab: [address] [address] Performing Lab: [address] [address] BENZODIAZEPINES SCREEN NONE-DETECTED Non e-Detected, Cutoff = 200 ng/mL PH, CHRISTINE 5.6 4-10 CREATININE, CHRISTINE 67.17 >20 SP.GRAVITY, CHRISTINE 1.012 1.003-1.020 Oct 02, 2022 [facility] BUPRENORPHINE SCREEN Specimen T ype: URINE 12:28 PM [facility] PANEL Comment: Urine with Cr <5 is [...] Sep 17, 2022 02:57 PM Reporting Lab: [address] [address] Performing Lab: [address] [address] BUPRENORPHINE (URINE) NONE-DETECTED None Detected, Cutoff = 10.0 ng/mL PH, CHRISTINE 5.6 4-10 CREATININE, CHRISTINE 67.17 >20 SP.GRAVITY, CHRISTINE 1.012 1.003-1.020 Oct 02, 2022 [place] YOHORL WSTRN COCAINE SCREEN Specimen Type: URINE 12:28 PM [facility] [employer] PANEL Comment: Urine with Cr <5 is [...] Sep 17, 2022 02:57 PM Reporting Lab: [place] Y[facility]O [facility] TopRealtyUSE[address] [address] Performing Lab: [facility] Amplify.[facility] MEMORIAL HOSPITALSureBooks[address] [address] COCAINE SCREEN NONE-DETECTED None-Detect ed,Cutoff = 300 ng/mL PH, CHRISTINE 5.6 4-10 CREATININE, CHRISTINE 67.17 >20 SP.GRAVITY, CHRISTINE 1.012 1.003-1.020 Oct 02, 2022 [place] YOHOR Amplify.LATRN OPIATES SCREEN Specimen Type: URINE 12:28 PM [facility] [employer] PANEL Comment: Urine with Cr <5 is [...] Sep 17, 2022 02:57 PM Reporting Lab: [place] [facility] [employer]jh [employer] [address] [address] Performing Lab: [place] [facility] [employer]plify.[facility] MEMORIAL HOSPITALTribeHired [address] [address] OPIATES SCREEN NONE-DETECTED None-Detect ed, Cutoff = 300 ng/mL PH, CHRISTINE 5.6 4-10 CREATININE, CHRISTINE 67.17 >20 SP.GRAVITY, CHRISTINE 1.012 1.003-1.020 Oct 02, 2022 [place] YOHO Amplify.LATRN OXYCODONE SCREEN Specimen Type: URINE 12:28 PM [facility] PANEL Comment: Urine with Cr [...] Sep 17, 2022 02:57 PM Reporting Lab: [address] [address] Performing Lab: [address] [address] OXYCODONE SCREEN POSITIVE HH None-Detected , Cutoff = 100 ng/mL PH, CHRISTINE 5.6 4-10 CREATININE, CHRISTINE 67.17 >20 SP.GRAVITY, CHRISTINE 1.012 1.003-1.020 Oct 02, 2022 [place] YOHO Amplify.LAN CANNABINOIDS SCREEN Specimen Ty pe: URINE 12:28 PM [facility] PANEL Comment: Urine with Cr [...] Sep 17, 2022 02:57 PM Reporting Lab: [address] [address] Performing Lab: [address] [address] CANNABINOIDS SCREEN NONE-DETECTED None-D etected,Cutoff = 50 ng/mL PH, CHRISTINE 5.6 4-10 CREATININE, CHRISTINE 67.17 >20 SP.GRAVITY, CHRISTINE 1.012 1.003-1.020 Oct 02, 2022 12:21 [facility] PT & INR (COUMADIN) Specimen Type: PLASMA PM [facility] No comment enter ed. Ordering Provid er: MAT TAMAYO Report Released Date/Time: Sep 10, 2022 03:46 PM Reporting Lab: [facility] [address] [facility] [address] Performing Lab: [facility] [address] [facility] [address] INR 3.3 PROTIME 38.2 H 10.0-13.1 Social [...] 30, 2022 01:00 PM [facility]-TOBACCO [facility] Tobacco Use History This section includes [...] [place] [facility] Mar 20, 2021 01:00 VA-TOBACCO FORMER USER [place] [facility] [place] [facility] PM [place] [facility] Mar 20, 2021 01:00 VA-TOBACCO QUIT 15 YRS OR [facility] PM MORE [place] [facility] January 17, 2020 11:33 VA-TOBACCO FORMER USER [place] [facility] WSTRN AM [place] [facility] January 17, 2020 11:33 VA-TOBACCO QUIT 15 YRS OR [facility] AM MORE [place] [facility] Nov 23, 2018 01:22 VA-TOBACCO FORMER USER [place] [facility] PM [place] [facility] Nov 23, 2018 01:22 VA-TOBACCO QUIT 15 YRS OR [facility] PM MORE [place] [facility] January 18, 2018 12:53 QUIT TOBACCO USE 1-7 [facility] PM YEARS AGO PT STATES HE STOPP 4 YR AGO [place] [facility] Dec 09, 2016 01:07 QUIT TOBACCO USE > 7 [facility] PM YEARS AGO [place] [facility] Nov 11, 2015 01:13 QUIT TOBACCO USE > 7 [facility] PM YEARS AGO [place] [facility] Nov 19, 2004 03:17 HISTORY OF SMOKING [facility] PM quit 30 yrs ago [place] [facility] Aug 10, 2003 01:03 HISTORY OF SMOKING [facility] PM [place] [facility] Apr 12, 2002 02:36 QUIT TOBACCO USE > 7 [facility] PM YEARS AGO [facility] Encounter Notes: All associated encounter notes This section contains the clinical notes associated to the Encounter. Date/Time Encounter Note(s) Provider Source Oct 02, 2022 02:06 PHARMACY MEDICATION MGT NOTE: CORWIN MEEKS [facility] PM LOCAL TITLE: PHARMACY ANTICOAGULATION NOTE [facility] STANDARD TITLE: PHARMACY MEDICATION MGT NOTE DATE OF NOTE: OCT 02, 2022@14:06 ENTRY DATE: OCT 02, 2022@14:06:16 AUTHOR: SERA MEEKS EXP COSIGNER: URGENCY: STATUS: COMPLETED PHARMACY ANTICOAGULATION NOTE Has ADDENDA * REFERRED TO CLINIC ON: 06/14/07 PRIMARY CARE PHYSICIAN: Dr. James SHABAZZ INFORMATION: OTHER CONTACT INFORMATION: PATIENT'S PHONE #: [phone] cell (call first ) [phone] home - can speak w/ Ej per pt's verbal authorization CLINIC LOCATION: [facility] COUMADIN THERAPY INITIATED ON: 1992 PLANNED DURATION OF THERAPY: lifetime ESTIMATED STOP DATE: n/a INDICATION FOR COUMADIN: St See's valve GOAL INR: 2-3 (goal changed 09/29/13) RELEVANT HISTORY: DRUG INTERACTIONS: ASA, citalopram, lansoprazole , APAP, co Q10 Last CBC: 06/11/22 Last PCP appt: 06/25/22 RECENT DOSING HISTORY (dose in mg): Wed SAT INR 12/01/21 5 7.5 5 5 7.5 5 [...] 7.5 5 7.5 5 7.5 5 2.6 10/02/22 5 7.5 5 7.5 5 7.5 5 3.3 *spoke with pt* CORRECT DOSE: yes, verified MISSED DOSES: denies BLEEDING: denies NEW EVENTS: denies PROCEDURES: Upcoming shoulder surgery, date stil l TBD. Pt will keep [facility] updated, bridging likely needed. MED CHANGES: Pt still taking oxycodone/APAP (5/3 25mg tablet 2-3x/day prn) and separate APAP (500mg BID prn) for shoulder pain - will monitor use DIET CHANGES: denies; per prev: ~1 salad/week EtOH: ~1-2 beers a day or less - no changes TOBACCO: denies use TABLETS: filled x 90 days on 06/29/22 - renewed OTHER: takes dose in AM TABLET STRENGTH: 5mg ASSESSMENT: INR is supra-therapeutic at 3.3 (goa l 2-3) PLAN: Informed pt of his INR result from today. Instructed pt via telephone to CONTINUE weekly warfarin dose of 42.5mg/ week, taking 5mg daily except 7.5mg on Mon/Wed/Fri. Informed pt of his next PT/INR sche duled on 10/15/22. Return to clinic: Sep ~2 weeks; [facility] Time spent with patient: 5 minutes EDUCATION Provided with verbal instructions: Yes Provided with written instructions: No Barriers to learning: No Readiness to learn: Yes Specific dose directions reviewed: Yes Opportunity for questions/discussion: Yes Reports understanding of instructions: Yes Further learning needs: No Provided patient education on the following: Pot ential drug interactions INR 3.21-3.69: Not Therapeutic Supratherapeutic. Patient was counseled on the signs and symptoms of bleeding and was instructed to present to the E mergency Department should a fall occur and the patient hit his/her head. /yeimy/ Sera Meeks PharmD Clinical Reweaver Signed: 10/02/2022 14:18 Receipt Acknowledged By: 10/02/2022 14:22 /yeimy/ ZAK BOWER CPHT Clinical Investor Relations Coordinator 10/13/2022 ADDENDUM STATUS: COMPLETED Patient called to report samira ulder surgery on 10/23/22, will need to hold warfarin x5 days prior and bridge w/e noxparin. Pt reports current weight is 215 lbs. Will plan to overnight enoxaparin to pt along with enoxparin dosing schedule. Pt was informed that warfarin dose may be adjusted base d on INR. Will use following bridge plan for upcoming proc edure. Pt to be counseled and schedule to be reviewed at time of next INR. (enoxaparin) (warfarin) Lovenox Coumadin Date AM PM Dose Sat 10/17 NONE NONE 5 mg = 1 tablets Sun 10/18 NONE 100mg NONE 10/19 100mg 100mg NONE 10/20 100mg 100mg NONE 10/21 100mg 100mg NONE Elena 10/22 100mg NONE NONE 10/23 NONE NONE NONE DATE OF PROCEDURE Sat 10/24 100mg 100mg 7.5 mg = 1.5 tablets Sun 10/25 100mg 100mg 5 mg = 1 tablets Mon 10/26 100mg 100mg 7.5 mg = 1.5 tablets Tue 10/27 100mg 100mg 5 mg = 1 tablets Wed 10/28 100mg 100mg 7.5 mg = 1.5 tablets Elena 10/29 100mg 5 mg = 0.5 tablets INR TODAY Will alert PACT to patient 's request for INR at [facility] as his shoulder pain makes it impossible for him to drive the long distance to [place] lab. Will ask that INR order be sent to the following lab for INR 10/15/22 and PRN with instructions to send result to [facility] at phone: [phone] ext [phone] or fax: [phone]. OFFICE INFORMATION [address] [place] [address] Office If PACT is not in agreement with sending lab order, please contact pt, otherwise he will report to lab 10/15/22 Thank you! /es/ EDWIN JUAN PharmD, [facility] Clinical Reweaver Signed: 10/13/2022 10:45 Receipt Acknowledged By: 10/14/2022 08:54 /es/ BOYD GROSS MD STAFF PHYSICIAN 10/13/2022 10:47 /es/ ZAK BOWER [facility] Clinical Investor Relations Coordinator 10/13/2022 15:16 /es/ CHRIS GO, RN REGISTERED NURSE 10/13/2022 ADDENDUM STATUS: COMPLETED Written order for PT/INr on 10/15/2022 and daily as needed faxed to number provided with copy of this note. /es/ HUNG ROBIN, RN REGISTERED NURSE Signed: 10/14/2022 11:36 10/15/2022 ADDENDUM STATUS: COMPLETED Called pt who stated he had his INR drawn yester day 10/14. This lyric writer called [facility] and was unable to get through. [facility] fax folder and [facility] faxed over results late yesterday (INR 2.9 on ) - did not see results until now. Spoke to pt on the phone earlier today a nd told him [facility] will f/u with him tmrw when INR results are availab le for review and to review above bridging schedule. /es/ Mat Tamayo PharmD, [facility] CLINICAL PHARMACY PROVIDER Signed: 10/15/2022 16:40
--- OUTSIDE RECORDS SUMMARY | 2022-11-03 05:57 | XMS_ITS | Encounter Summary ---
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 [facility] Aug 23, [id number] [phone] POLY NIELSON,J PATIENT ION 2015 7 3 JUSTIN GEHA FEHB PREFERRED [facility] Aug 23, [id number] [phone] Bertha RICHARDSON PATIENT PROVIDER AL 2012 ALTH 7 136 JUSTIN ORGANIZAT GOV ION (PPO) GEHA FEHB PREFERRED GEHA Aug 23, [id number] [phone] AKUA LIZETT,J PATIENT PROVIDER DAVID 2012 2 7 136 JUSTIN ORGANIZAT CTION ION (PPO) DENT MEDICARE MEDICARE PART Sep 23, PART A [id number] Bertha FENG PATIENT (WNR) (M) A 2010 [id number] 2 JUSTIN MEDICARE MEDICARE PART Sep 23, PART B [id number] Bertha FENG PATIENT (WNR) (M) B 2010 [id number] 2 JUSTIN Selected Encounter This section includes the information on record at [place] for the Encounter. Date/Time Encounter Type Encounter Reason Provider Source Description Oct 07, 2022 01:25 Outpatient PRIMARY RODDY MAR PM Encounter CARE/MEDICINE A A IHE Encounter Template Text not used by [place] Plan of Treatment: Future Appointments (+ 6 months) and Future Tests (+/- 45 days) The Plan of Treatment section includes future care activities for the patient from all [place] treatmentfacilities. This section includes future appointments and future orders which are active, pending orscheduled.Future Appointments This section includes appointments that were scheduled to occur 6 months from the date of the Encounter, up to a maximum of 20 appointments. The data comes from all [place] treatment facilities. Appointment Date/Time Appointment Type Appointment Facili ty Name Nov 02, 2022 12:10 PM AMBULATORY - MEDICINE [facility] Nov 12, 2022 12:45 PM AMBULATORY MEDICINE [facility] December 23, 2022 01:30 PM AMBULATORY - MEDICINE [facility] December 28, 2022 01:30 PM AMBULATORY - PSYCHIATRY [facility] Active, Pending, and Scheduled Orders This section includes a listing of several types of active, pending, and scheduled orders, including clinic medications orders, diagnostic test orders, procedure orders and consult orders; where the start date of the order is 45 days before the date of the Encounter or 45 days after the date of the Encounter. The data comes from all [place] treatment [facility]. Test Date/Time Test Type Test Details Facility Name Aug 31, 2022 12:00 AM Laboratory - Chemistry PT & INR (PROTIME) [facility] Order BLOOD ([facility]MA) [facility] Aug 31, 2022 12:00 AM Laboratory - Chemistry BNP (Natriuretic [facility] Order Peptide Brain) [facility] BLOOD (LAV-PLASMA) SP Aug 31, 2022 12:00 AM Laboratory - Chemistry CBC AND DIFF (AUTO) [facility] Order BLOOD (LAV-BLOOD) [facility] S SP Aug 31, 2022 12:00 AM Laboratory - Chemistry PTT BLOOD [facility] Order (BLUE-PLASMA) [facility] Sep 09, 2022 12:00 AM Laboratory - Chemistry PT & INR (COUMADIN) [facility] Order BLOOD (BLUE-PLASMA) [facility] SP ONCE Oct 15, 2022 12:00 AM Laboratory - Chemistry PT & INR (COUMADIN) [facility] Order BLOOD (BLUE-PLASMA) [facility] SP ONCE Oct 29, 2022 12:00 AM Laboratory - Chemistry PT & INR (COUMADIN) [facility] Order BLOOD (BLUE-PLASMA) (631GE) SP ONCE Nov 02, 2022 12:00 AM Laboratory - Chemistry PT & INR (COUMADIN) [facility] Order BLOOD (BLUE-PLASMA) (631GE) SP ONCE [...] Reference Range Comment Oct 02, 2022 12:28 [facility] METHADONE SCREEN Specimen Ty pe: URINE PM [facility] Comment: CHRISTINE te st are qualitative, any L or H flags only indicate a [facility] alert was sent. Ordering Provid er: BOYD GROSS Report Released Date/Time: Sep 17, 2022 02:57 PM Reporting Lab: [facility] [address] [address] Performing Lab: [facility] [address] [address] METHADONE SCREEN None detected(Negative) L Negative Oct 02, 2022 12:28 [facility] ETG SCREEN (wx) Specimen Typ e: URINE PM [facility] Comment: CHRISTINE te st are qualitative, any L or H flags only indicate a [facility] alert was sent. This ETG test was developed and its performance characteristics determined by [place] clinical lab. The [place] Food and Cipriano g Administration has not approved or cleared this test, FDA clearance or approval is not currently required for clinical use. ETG cutoff 500 ng/mL CHRISTINE Screens are for medical purposes. For confirmation use CHRISTINE Confirmation Add on Menu in CPRS. Ordering Provid er: BOYD GROSS Report Released Date/Time: Sep 17, 2022 02:57 PM Reporting Lab: [facility] [address] [address] Performing Lab: [facility] [address] [facility] [address] ETG SCREEN (wx) SCREEN POS H Negative Oct 02, 2022 [facility] FENTANYL SCREEN Specimen Type: URINE 12:28 PM [facility]SC [facility]ETS [facility] PANEL Comment: Urine with Cr <5 is [...] Sep 17, 2022 02:57 PM Reporting Lab: [facility] [address] [facility] [address] Performing Lab: [facility] [address] [facility] [address] FENTANYL SCREEN NONE-DETECTED Negative: Cutoff = 1.00 ng/mL PH, CHRISTINE 5.6 4-10 CREATININE, CHRISTINE 66.53 >20 SP.GRAVITY, CHRISTINE 1.012 1.003-1.020 Oct 02, 2022 [facility] ETHYL URINE Specimen T ype: URINE 12:28 PM [facility] PANEL Comment: Urine with Cr [...] Sep 17, 2022 02:57 PM Reporting Lab: [facility] [address] [facility] [address] Performing Lab: [address] [address] ALCOHOL, ETHYL URINE NONE-DETECTED NONE- DETECTED, cutoff = 10 mg/dL PH, CHRISTINE 5.6 4-10 CREATININE, CHRISTINE 67.17 >20 SP.GRAVITY, CHRISTINE 1.012 1.003-1.020 Oct 02, 2022 [facility] WSTRN AMPHETAMINES SCREEN Specimen Ty pe: URINE 12:28 PM [place] [facility] PANEL Comment: Urine with Cr <5 is [...] Sep 17, 2022 02:57 PM Reporting Lab: [address] [address] Performing Lab: [address] [address] AMPHETAMINES SCREEN NONE-DETECTED None-D etected, Cutoff = 1000 ng/mL PH, CHRISTINE 5.6 4-10 CREATININE, CHRISTINE 67.17 >20 SP.GRAVITY, CHRISTINE 1.012 1.003-1.020 Oct 02, 2022 [facility] BENZODIAZEPINES SCREEN Specimen Type: URINE 12:28 PM [employer] PANEL Comment: Urine with Cr <5 is [...] may have been adulterated. Ordering Provid er: AHMEDBOYD Report Released Date/Time: Sep 17, 2022 02:57 PM Reporting Lab: [facility] [address] [facility] [address] Performing Lab: [facility] [address] [facility] [address] BENZODIAZEPINES SCREEN NONE-DETECTED Non e-Detected, Cutoff = 200 ng/mL PH, CHRISTINE 5.6 4-10 CREATININE, CHRISTINE 67.17 >20 SP.GRAVITY, CHRISTINE 1.012 1.003-1.020 Oct 02, 2022 [facility] WSTRN CANNABINOIDS SCREEN Specimen Ty pe: URINE 12:28 PM [facility] PANEL Comment: Urine with Cr <5 is [...] Sep 17, 2022 02:57 PM Reporting Lab: [address] [address] Performing Lab: [address] [address] CANNABINOIDS SCREEN NONE-DETECTED None-D etected,Cutoff = 50 ng/mL PH, CHRISTINE 5.6 4-10 CREATININE, CHRISTINE 67.17 >20 SP.GRAVITY, CHRISTINE 1.012 1.003-1.020 Oct 02, 2022 [facility] COCAINE SCREEN Specimen Type: URINE 12:28 PM [employer] PANEL Comment: Urine with Cr <5 is [...] Sep 17, 2022 02:57 PM Reporting Lab[facility] [address] [facility] [address] Performing Lab: [facility] [address] [facility] [address] COCAINE SCREEN NONE-DETECTED None-Detect ed,Cutoff = 300 ng/mL PH, CHRISTINE 5.6 4-10 CREATININE, CHRISTINE 67.17 >20 SP.GRAVITY, CHRISTINE 1.012 1.003-1.020 Oct 02, 2022 [facility] OPIATES SCREEN Specimen Type: URINE 12:28 PM Zh[place] OmeSoft[facility]ETS [facility] PANEL Comment: Urine with Cr <5 is [...] Sep 17, 2022 02:57 PM Reporting Lab: [facility] [address] [facility] [address] Performing Lab: [facility] [address] [facility] [address] OPIATES SCREEN NONE-DETECTED None-Detect ed, Cutoff = 300 ng/mL PH, CHRISTINE 5.6 4-10 CREATININE, CHRISTINE 67.17 >20 SP.GRAVITY, CHRISTINE 1.012 1.003-1.020 Oct 02, 2022 [facility] OXYCODONE SCREEN Specimen Type: URINE 12:28 PM Access [employer] [facility] PANEL Comment: Urine with Cr <5 is [...] Sep 17, 2022 02:57 PM Reporting Lab: [facility] [address] [address] Performing Lab: [facility] [address] [facility] [address] OXYCODONE SCREEN POSITIVE HH None-Detected , Cutoff = 100 ng/mL PH, CHRISTINE 5.6 4-10 CREATININE, CHRISTINE 67.17 >20 SP.GRAVITY, CHRISITNE 1.012 1.003-1.020 Oct 02, 2022 [facility] BUPRENORPHINE SCREEN Specimen T ype: URINE 12:28 PM [facility] PANEL Comment: Urine with Cr <5 [...] Sep 17, 2022 02:57 PM Reporting Lab[facility] [address] [address] Performing Lab: [facility] [address] [address] BUPRENORPHINE (URINE) NONE-DETECTED None Detected, Cutoff = 10.0 ng/mL PH, CHRISTINE 5.6 4-10 CREATININE, CHRISTINE 67.17 >20 SP.GRAVITY, CHRISTINE 1.012 1.003-1.020 Oct 02, 2022 12:21 [facility] PT & INR (COUMADIN) Specimen Type: PLASMA PM [facility] No comment enter ed. Ordering Provid er: MAT TAMAYO Report Released Date/Time: Sep 10, 2022 03:46 PM Reporting Lab: [address] [address] Performing Lab: [facility] [place] [address] [facility] [address] INR 3.3 PROTIME 38.2 H 10.0-13.1 Social [...] VA-TOBACCO FORMER USER [facility] [place] [facility] Tobacco Use History This section includes a history of the smoking, or tobacco- related health factors, that were collected on or before the date of the Encounter. The data comes from the [place] facility where the Encounter took place. Date/Time Smoking Status/Tobacco Comment Facility Use Apr 30, 2022 01:00 VA-TOBACCO QUIT 15 YRS OR [facility] [place] [facility] Mar 20, 2021 01:00 VA-TOBACCO FORMER USER [facility] [place] [facility] Mar 20, 2021 01:00 VA-TOBACCO QUIT 15 YRS OR [facility] [place] [facility] January 17, 2020 11:33 VA-TOBACCO FORMER USER [facility] [place] [facility] January 17, 2020 11:33 VA-TOBACCO QUIT 15 YRS OR [facility] [place] [facility] Nov 23, 2018 01:22 VA-TOBACCO FORMER USER [facility] [place] [facility] Nov 23, 2018 01:22 VA-TOBACCO QUIT 15 YRS OR [facility] [place] [facility] January 18, 2018 12:53 QUIT TOBACCO USE 1-7 [facility] PM YEARS AGO PT STATES HE STOPP 4 YR AGO [place] [facility] Dec 09, 2016 01:07 QUIT TOBACCO USE > 7 [facility] PM YEARS AGO [place] [facility] Nov 11, 2015 01:13 QUIT TOBACCO USE > 7 [facility] PM YEARS AGO [place] [facility] Nov 19, 2004 03:17 HISTORY OF SMOKING [facility] PM quit 30 yrs ago [facility] Aug 10, 2003 01:03 HISTORY OF SMOKING [place] [facility] PM [facility] Apr 12, 2002 02:36 QUIT TOBACCO USE > 7 [place] [facility] PM YEARS AGO [facility] Encounter Notes: All associated encounter notes This section contains the clinical notes associated to the Encounter. Date/Time Encounter Note(s) Provider Source Oct 19, 2022 11:12 PRIMARY CARE SECURE MESSAGING: ANTONETTE LINDSAY [place] [facility] TITLE: PRIMARY CARE SECURE MESSAGING [facility] STANDARD TITLE: PRIMARY CARE SECURE MESSAGING DATE OF NOTE: OCT 19, 2022@11:12 ENTRY DATE: OCT 19, 2022@11:12:07 AUTHOR: ANTONETTE LINDSAY EXP COSIGNER: URGENCY: STATUS: COMPLETED PRIMARY CARE SECURE MESSAGING Has ADDENDA * ------Original Message Sent: 2022 11:44 AM ET From: KAMLA MODI To: Rio [facility] Subject: Medication:Oxycodone refill Thank you, I'm expecting confirmation of a surgery date in early October. I will keep you up to date. Derrell Modi ------Original Message Sent: 10/16/2022 07:18 PM ET From: KAMLA MODI To: Rio [facility] Subject: Medication:Oxycodone refill Have never seen this refill. ------Original Message Sent: 10/19/2022 08:35 AM ET From: CHRIS DYSON To: KAMLA MODI Subject: Medication:Oxycodone refill Good morning Vet, The medication is currently on hold until your next refill day which is 10/26/22 when it will be mailed to you. Respectfully, DEBBIE Li ------Original Message Sent: 10/19/2022 10:24 AM ET From: KAMLA MODI [facility]: [facility] Subject: Medication:Oxycodone refill I'm out of this RX and in severe pain. I would appreciate if you would Express Mail it or at least a partial today. I will pay Express Mail postage. I'm going to [place] [facility] on Wednesday.Please ca ll me me to discuss. Derrell Modi /yeimy/ ANTONETTE LINDSAY LPN LICENSED PRACTICAL NURSE Signed: 10/19/2022 11:12 Receipt Acknowledged By: * AWAITING SIGNATURE * BOYD GROSS 10/19/2022 ADDENDUM STATUS: COMPLETED Please call pharmacy to release his oxycodone ea rly. /yeimy/ BOYD GROSS MD STAFF PHYSICIAN Signed: 10/19/2022 14:19 Receipt Acknowledged By: 10/19/2022 15:53 /yeimy/ CHRIS GO, RN REGISTERED NURSE 10/19/2022 ADDENDUM STATUS: COMPLETED Vet contacted following up w ith his concerns. Medication is being release early and will be mailed to him. Vet verbalized unders tanding and agreed to plan. /ata GO, RN REGISTERED NURSE Signed: 10/19/2022 15:54 Oct 07, 2022 01:25 PRIMARY CARE SECURE MESSAGING: LUKE MAR [place] [facility] LOCAL TITLE: PRIMARY CARE SECURE MESSAGING [facility] TITLE: PRIMARY CARE SECURE MESSAGING DATE OF NOTE: OCT 07, 2022@13:25 ENTRY DATE: OCT 07, 2022@13:25:20 AUTHOR: AUBREE MAR EXP COSIGNER: URGENCY: STATUS: COMPLETED ------Original Message Sent: 10/07/2022 12:24 PM ET From: KAMLA MODI To: Luc[facility] Subject: Medication:Oxycodone refill Please renew my pain medication. Below are the l ate messages between me and [facility], Doctor Tj. I'm pushing as hard as I can to get in there and get this done. Thanks Derrell Modi Can you update me on when I might expect to have surgery on my left shoulder? I am in 24 pain and it is barely managed by RX. Actually ,not managed. Thanks Derrell Modi Message from Newton Avendano, sent October 01 at 7:52??PM Newton Avendano Oct 01, 7:52??PM Rome Guerrero, I apologize for the wait. We are now getting jesus reeves for Yo Perrin. We will let you know as soon as possible when we can move forward with surgery and when we receive more time there. I appreciate yo katelynn patience with this, I will discuss this with Dr. Spencer tomorrow. Best, Anthony Message from Kamla Modi, sent October 06 at 12:25??PM J Richard Oct 06, 12:25??PM Any progress on my surgery scheduling? Last viewed by staff October 06 at 2:09??PM Last viewed by staff Oct 06, 2:09??PM Showing 3 of 3 Please allow up to 3 business days for a reply. ------Original Message Sent: 10/07/2022 01:25 PM ET From: AUBREE MAR To: KAMLA MODI Subject: Medication:Oxycodone refill Good afternoon, We are working on your request for the refill as I type this. R/S Aubree RN /yeimy/ AUBERE MAR Registered Nurse Signed: 10/07/2022 13:25
--- OUTSIDE RECORDS SUMMARY | 2022-11-03 05:57 | XMS_ITS | Encounter Summary ---
:[address] [facility] rs Address [address] [place] [id number] Support Name Relationship Address Phone EJ SCHULTE Unavailable [address] [place] [address] EJ SCHULTE Unavailable [address] [place] [address] Insurance Providers: All historical and current Section [...] Name to Policy Number Spann WILVER [facility] Aug 23, [id number] [phone] POLY NIELSON,J PATIENT ION 2015 7 3 JUSTIN GEHA FEHB PREFERRED [facility] Aug 23, [id number] [phone] Bertha RICHARDSON PATIENT PROVIDER AL 2012 ALTH 7 136 JUSTIN ORGANIZAT GOV ION (PPO) GEHA FEHB PREFERRED GEHA Aug 23, [id number] [phone] AKUA LIZETT,J PATIENT PROVIDER DAVID 2012 2 7 136 JUSTIN ORGANIZAT CTION ION (PPO) DENT MEDICARE MEDICARE PART Sep 23, PART B [id number] Bertha FENG PATIENT (WNR) (M) B 2010 [id number] 2 JUSTIN MEDICARE MEDICARE PART Sep 23, PART A [id number] Bertha FENG PATIENT (WNR) (M) A 2010 [id number] 2 JUSTIN Selected Encounter This section includes the information on record at [place] for the Encounter. Date/Time Encounter Type Encounter Description Reason Provider Source Oct 07, 2022 01:19 Outpatient Encounter PRIMARY CARE/MEDICINE PM IHE Encounter Template Text not used by [place] Plan of Treatment: Future Appointments (+ 6 months) and Future Tests (+/- 45 days) The Plan of Treatment section includes future care activities for the patient from all [place] [facility] This section includes future appointments and future orders which are active, pending orscheduled.Future Appointments This section includes appointments that were scheduled to occur 6 months from the date of the Encounter, up to a maximum of 20 appointments. The data comes from all [place] treatment [facility]. Appointment Date/Time Appointment Type Appointment Facili ty Name Nov 02, 2022 12:10 PM AMBULATORY - MEDICINE [facility] Nov 12, 2022 12:45 PM AMBULATORY MEDICINE [facility] December 23, 2022 01:30 PM AMBULATORY - MEDICINE [facility] December 28, 2022 01:30 PM AMBULATORY - PSYCHIATRY [facility] Active, Pending, and Scheduled Orders This section includes a listing of several types of active, pending, and scheduled orders, including clinic medications orders, diagnostic test orders, procedure orders and consult orders; where the start date of the order is 45 days before the date of the Encounter or 45 days after the date of the Encounter. The data comes from all [facility]. Test Date/Time Test Type Test Details Facility Name Aug 31, 2022 12:00 AM Laboratory - Chemistry CBC AND DIFF (AUTO) [facility] Order BLOOD (LAV-BLOOD) [facility] S SP Aug 31, 2022 12:00 AM Laboratory - Chemistry BNP (Natriuretic [facility] Order Peptide Brain) [facility] BLOOD (LAV-PLASMA) SP Aug 31, 2022 12:00 AM Laboratory - Chemistry PTT BLOOD [facility] Order (BLUE-PLASMA) SP [facility] Aug 31, 2022 12:00 AM Laboratory - Chemistry PT & INR (PROTIME) [facility] Order BLOOD (BLUE-PLASMA) [facility] SP Sep 09, 2022 12:00 AM Laboratory - Chemistry PT & INR (COUMADIN) [facility] BLOOD (BLUE-PLASMA) [facility] SP ONCE Oct 15, 2022 12:00 AM Laboratory - Chemistry PT & INR (COUMADIN) [facility] Order BLOOD ([facility] SP ONCE Oct 29, 2022 12:00 AM Laboratory - Chemistry PT & INR (COUMADIN) [facility] Order BLOOD (BLUE-PLASMA) (631GE) SP ONCE Nov 02, 2022 12:00 AM Laboratory - Chemistry PT & INR (COUMADIN) [facility] Order BLOOD (BLUE-PLASMA) (631GE) SP ONCE Lab Results: +/- 30 days of the encounter This section includes the Chemistry and Hematology Lab Results on record with [place] for the patient. Radiology Reports and Pathology Reports are provided separately, in subsequent sections.Lab Results This section contains the Chemistry/Hematology Results that were resulted 30 days before or 30 daysafter the date of the Encounter. Date/Time Source Result Type Result - Unit Interpretation Reference Range Comment Oct 02, 2022 12:28 [facility] ETG SCREEN (wx) Specimen Typ e: URINE PM [place] [facility] Comment: CHRISTINE te st are qualitative, any L or H flags only indicate a VA alert was sent. This ETG test was developed and its performance characteristics determined by [place] clinical lab. The [place] Food and Cipriano g Administration has not approved or cleared this test, FDA clearance or approval is not currently required for clinical use. ETG cutoff 500 ng/mL CHRISTINE Screens are for medical purposes. For confirmation use CHRISTINE Confirmation Add on Menu in CPRS. Ordering Provid er: BOYD GROSS Report Released Date/Time: Sep 17, 2022 02:57 PM Reporting Lab: [facility] [address] [address] Performing Lab: [facility] [address] [facility] [address] ETG SCREEN (wx) SCREEN POS H Negative Oct 02, 2022 12:28 [facility] METHADONE SCREEN Specimen Ty pe: URINE PM [place] [facility] Comment: CHRISTINE te st are qualitative, any L or H flags only indicate a VA alert was sent. Ordering Provid er: BOYD GROSS Report Released Date/Time: Sep 17, 2022 02:57 PM Reporting Lab: [facility] [address] [address] Performing Lab: [facility] [address] [address] METHADONE SCREEN None detected(Negative) L Negative Oct 02, 2022 [facility] FENTANYL SCREEN Specimen Type: URINE 12:28 PM [facility] PANEL Comment: Urine with Cr [...] Sep 17, 2022 02:57 PM Reporting Lab: [facility] [address] [facility] [address] Performing Lab: [facility] [address] [facility] [address] FENTANYL SCREEN NONE-DETECTED Negative: Cutoff = 1.00 ng/mL PH, CHRISTINE 5.6 4-10 CREATININE, CHRISTINE 66.53 >20 SP.GRAVITY, CHRISTINE 1.012 1.003-1.020 Oct 02, 2022 [facility] ALCOHOL, ETHYL URINE Specimen T ype: URINE 12:28 PM [facility] PANEL Comment: Urine with Cr <5 [...] Sep 17, 2022 02:57 PM Reporting Lab: [address] [address] Performing Lab: [address] [address] ALCOHOL, ETHYL URINE NONE-DETECTED NONE- DETECTED, cutoff = 10 mg/dL PH, CHRISTINE 5.6 4-10 CREATININE, CHRISTINE 67.17 >20 SP.GRAVITY, CHRISTINE 1.012 1.003-1.020 Oct 02, 2022 [facility] AMPHETAMINES SCREEN Specimen Ty pe: URINE 12:28 PM [facility] PANEL Comment: Urine with Cr <5 [...] Sep 17, 2022 02:57 PM Reporting Lab: [address] [address] Performing Lab: [address] [address] AMPHETAMINES SCREEN NONE-DETECTED None-D etected, Cutoff = 1000 ng/mL PH, CHRISTINE 5.6 4-10 CREATININE, CHRISTINE 67.17 >20 SP.GRAVITY, CHRISTINE 1.012 1.003-1.020 Oct 02, 2022 [facility] BUPRENORPHINE SCREEN Specimen T ype: URINE 12:28 PM [facility] PANEL Comment: Urine with Cr <5 [...] Sep 17, 2022 02:57 PM Reporting Lab: [facility] [address] [facility] [address] Performing Lab: [facility] [address] [facility] [address] BUPRENORPHINE (URINE) NONE-DETECTED None Detected, Cutoff = 10.0 ng/mL PH, CHRISTINE 5.6 4-10 CREATININE, CHRISTINE 67.17 >20 SP.GRAVITY, CHRISTINE 1.012 1.003-1.020 Oct 02, 2022 [facility] BENZODIAZEPINES SCREEN Specimen Type: URINE 12:28 PM [place] [facility] PANEL Comment: Urine with Cr [...] Sep 17, 2022 02:57 PM Reporting Lab: [address] [address] Performing Lab: [address] [address] BENZODIAZEPINES SCREEN NONE-DETECTED Non e-Detected, Cutoff = 200 ng/mL PH, CHRISTINE 5.6 4-10 CREATININE, CHRISTINE 67.17 >20 SP.GRAVITY, CHRISTINE 1.012 1.003-1.020 Oct 02, 2022 [facility] CANNABINOIDS SCREEN Specimen Ty pe: URINE 12:28 PM [facility] PANEL Comment: Urine with Cr [...] may have been adulterated. Ordering Provid er: SHELBYBOYD PATEL Report Released Date/Time: Sep 17, 2022 02:57 PM Reporting Lab: [facility] [address] [facility] [address] Performing Lab: [facility] [address] [facility] [address] CANNABINOIDS SCREEN NONE-DETECTED None-D etected,Cutoff = 50 ng/mL PH, CHRISTINE 5.6 4-10 CREATININE, CHRISTINE 67.17 >20 SP.GRAVITY, CHRISTINE 1.012 1.003-1.020 Oct 02, 2022 [facility] WSTRN COCAINE SCREEN Specimen Type: URINE 12:28 PM [facility] PANEL Comment: Urine with Cr [...] Sep 17, 2022 02:57 PM Reporting Lab: [address] [address] Performing Lab: [address] [address] COCAINE SCREEN NONE-DETECTED None-Detect ed,Cutoff = 300 ng/mL PH, CHRISTINE 5.6 4-10 CREATININE, CHRISTINE 67.17 >20 SP.GRAVITY, CHRISTINE 1.012 1.003-1.020 Oct 02, 2022 [facility] WSTRN OPIATES SCREEN Specimen Type: URINE 12:28 PM [facility] PANEL Comment: Urine with Cr [...] 02:57 PM Reporting Lab: [facility] [place] [facility] [address] [facility] [address] Performing Lab: [facility] W[facility]N [facility] [address] [facility] [address] OPIATES SCREEN NONE-DETECTED None-Detect ed, Cutoff = 300 ng/mL PH, CHRISTINE 5.6 4-10 CREATININE, CHRISTINE 67.17 >20 SP.GRAVITY, CHRISTINE 1.012 1.003-1.020 Oct 02, 2022 [facility] OXYCODONE SCREEN Specimen Type: URINE 12:28 PM [facility] PANEL Comment: Urine with Cr [...] 02:57 PM Reporting Lab: [facility] [address] [facility] [facility] [address] Performing Lab: [facility] [address] [facility] [address] OXYCODONE SCREEN POSITIVE HH None-Detected , Cutoff = 100 ng/mL PH, CHRISTINE 5.6 4-10 CREATININE, CHRISTINE 67.17 >20 SP.GRAVITY, CHRISTINE 1.012 1.003-1.020 Oct 02, 2022 12:21 [facility] PT & INR (COUMADIN) Specimen Type: PLASMA PM [facility] No comment enter ed. Ordering Provid er: MAT TAMAYO Report Released Date/Time: Sep 10, 2022 03:46 PM Reporting Lab: [facility] W[facility] [address] [facility] [address] Performing Lab: [facility] [place] [address] [place] [address] INR 3.3 PROTIME 38.2 H 10.0-13.1 Social History: Smoking Status (Most current) and Tobacco Use (All prior to encounter date) This section includes the most current, and the historical, smoking and tobacco-related health factors from the [place] facility where the Encounter took place.Current Smoking Status This section includes the most current smoking, or tobacco-related health factor, from the [place] facility where the Encounter took place. Date/Time Current Smoking Status Comment Facility Apr 30, 2022 01:00 PM VA-TOBACCO FORMER USER [facility] Tobacco Use History This section includes a history of the smoking, or tobacco- related health factors, that were collected on or before the date of the Encounter. The data comes from the [place] facility where the Encounter took place. Date/Time Smoking Status/Tobacco Comment Facility Use Apr 30, 2022 01:00 VA-TOBACCO QUIT 15 YRS OR [facility] PM MORE [place] [facility] Mar 20, 2021 01:00 VA-TOBACCO FORMER USER [facility] PM [place] [facility] Mar 20, 2021 01:00 VA-TOBACCO QUIT 15 YRS OR [facility] PM MORE [place] [facility] January 17, 2020 11:33 VA-TOBACCO FORMER USER [facility] AM [place] [facility] January 17, 2020 11:33 VA-TOBACCO QUIT 15 YRS OR [facility] AM MORE [place] [facility] Nov 23, 2018 01:22 VA-TOBACCO FORMER USER [facility] PM [place] [facility] Nov 23, 2018 01:22 VA-TOBACCO QUIT 15 YRS OR [facility] PM MORE [place] [facility] January 18, 2018 12:53 QUIT TOBACCO USE 1-7 [facility] PM YEARS AGO PT STATES HE STOPP 4 YR AGO [place] [facility] Dec 09, 2016 01:07 QUIT TOBACCO USE > 7 [facility] PM YEARS AGO [place] [facility] Nov 11, 2015 01:13 QUIT TOBACCO USE > 7 [facility] PM YEARS AGO [place] [facility] Nov 19, 2004 03:17 HISTORY OF SMOKING [facility] PM quit 30 yrs ago [place] [facility] Aug 10, 2003 01:03 HISTORY OF SMOKING [facility] PM [facility] Apr 12, 2002 02:36 QUIT TOBACCO USE > 7 [facility] PM YEARS AGO [facility] Encounter Notes: All associated encounter notes This section contains the clinical notes associated to the Encounter. Date/Time Encounter Note(s) Provider Source Oct 07, 2022 01:26 PM MEDICATION MGT NOTE: CHRIS DYSON [place] [facility] LOCAL TITLE: OPIOID/CONTROLLED SUBSTANCE RENEWA L NOTE [facility] STANDARD TITLE: MEDICATION MGT NOTE DATE OF NOTE: OCT 07, 2022@13:26 ENTRY DATE: OCT 07, 2022@13:26:09 AUTHOR: CHRIS DYSON EXP COSIGNER: URGENCY: STATUS: COMPLETED Standard Opioid Renewal/Controlled Substance Not e Requested Medication: Pharmacy Pick-Up A Valid Consent for Long-Term Opioids for Pain i s on file and available for viewing in [employer]. No CONSENT FOR LONG-TERM OPIOIDS FOR PAIN note f ound. A State Prescription Drug Monitoring Program (SP DMP) Review Note has been documented in the medical r ecord at least once in the last 9 months. COUNT INCLUDES THE [facility] PRESCRIPTION DRUG MONITORING PROGRAM (SPDM P) NOTE December 23, 2020 [place] Prescription Monitoring Program (M A SALES SERVICE REP) checked today. [email or web address] Drug Screen Collection DT Specimen Test Name Result Units Re f Range 10/02/2022 12:28 URINE !! OPIATES SCREEN NONE-DE TECTED Ref: None-Detected, Cutoff = 300 ng/mL 10/02/2022 12:28 URINE !! OXYCODONE SCREEN POSIT RADHA H* Ref: None-Detected, Cutoff = 100 ng/mL 10/02/2022 12:28 URINE !! METHADONE SCREEN None detected(Negative) LRef: Negative 10/02/2022 12:28 URINE !! BenzoSc NONE-DETECTED Ref: None-Detected, Cutoff = 200 ng/mL 10/02/2022 12:28 URINE !! COCAINE SCREEN NONE-DE TECTED Ref: None-Detected,Cutoff = 300 ng/mL 10/02/2022 12:28 URINE !! CANNABINOIDS SCRENONE- DETECTED Ref: None-Detected,Cutoff = 50 ng/mL 10/02/2022 12:28 URINE !! ALCOHOL, ETHYL URNONE- DETECTED mg/dL Ref: NONE-DETECTED, cutoff = 10 mg/dL 10/02/2022 12:28 URINE !! AMPHETAMINES SCRENONE- DETECTED Ref: None-Detected, Cutoff = 1000 ng/mL 10/02/2022 12:28 URINE !! BupreUr NONE-DETECTED Ref: None Detected, Cutoff = 10.0 ng/mL !! Indicates COMMENTS AVAILABLE...Refer to Inter im Lab Report. Naloxone Most Recent Naloxone Prescription Information: No prior Naloxone prescription was found. Please prescribe. Consent for intermediate card tender opioids needed. No consent found in [facility]/ records. /yeimy/ CHRIS GO, RN REGISTERED NURSE Signed: 10/07/2022 13:29
--- OUTSIDE RECORDS SUMMARY | 2022-11-03 05:58 | XMS_ITS ---
:1945 Author Organization [facility] rs Address [address] [place] [id number] Support Name Relationship Address Phone EJ SCHULTE Unavailable [address] [facility] [place] [address] EJ SCHULTE Unavailable [address] [place] [address] Insurance Providers: All historical and current Section [...] Name to Policy Number Spann WILVER MESSERT [facility] Aug 23, [id number] [phone] POLY ON,J PATIENT ION 2015 7 3 JUSTIN GEHA FEHB PREFERRED MANUEL Aug 23, [id number] [phone] AKUA [place] PATIENT PROVIDER MICHELA 2012 ALTH 7 136 JUSTIN ORGANIZAT GOV ION (PPO) GEHA FEHB PREFERRED GEHA Aug 23, [id number] [phone] AKUA RDON,J PATIENT PROVIDER DAVID 2012 2 7 136 JUSTIN ORGANIZAT CTION ION (PPO) DENT MEDICARE MEDICARE PART Sep 23, PART B [id number] Bertha FENG PATIENT (WNR) (M) B [id number] 2 JUSTIN MEDICARE MEDICARE PART Sep 23, PART A [id number] Bertha FENG PATIENT (WNR) (M) A 2010 MJ 2 JUSTIN Selected Encounter This section includes the information on record at [place] for the Encounter. Date/Time Encounter Type Encounter Description Reason Provider Source Oct 15, 2022 09:58 Outpatient Encounter TELEPHONE MH AM IHE Encounter Template Text not used by [place] Plan of Treatment: Future Appointments (+ 6 months) and Future Tests (+/- 45 days) The Plan of Treatment section includes future care activities for the patient from [facility] [place] [facility] This section includes future appointments and future orders which are active, pending orscheduled.Future Appointments This section includes appointments that were scheduled to occur 6 months from the date of the Encounter, up to a maximum of 20 appointments. The data comes from all [place] [facility]. Appointment Date/Time Appointment Type Appointment Facili ty Name Nov 02, 2022 12:10 PM AMBULATORY - MEDICINE [facility] Nov 12, 2022 12:45 PM AMBULATORY MEDICINE [facility] December 23, 2022 01:30 PM AMBULATORY - MEDICINE [facility] December 28, 2022 01:30 PM AMBULATORY - PSYCHIATRY [facility] Active, Pending, and Scheduled Orders [...] Encounter. The data comes from all [facility]. Test Date/Time Test Type Test Details Facility Name Aug 31, 2022 12:00 AM Laboratory - Chemistry BNP (Natriuretic [facility] Order Peptide Brain) [facility] BLOOD (LAV-PLASMA) SP Aug 31, 2022 12:00 AM Laboratory - Chemistry PT & INR (PROTIME) [facility] Order BLOOD (BLUE-PLASMA) [facility] SP Aug 31, 2022 12:00 AM Laboratory - Chemistry PTT BLOOD [facility] Order (BLUE-PLASMA) [facility] Aug 31, 2022 12:00 AM Laboratory - Chemistry CBC AND DIFF (AUTO) [facility] Order BLOOD (LAV-BLOOD) [facility] S SP Sep 09, 2022 12:00 AM Laboratory - Chemistry PT & INR (COUMADIN) [facility] (BLUE-PLASMA) [facility] SP ONCE Oct 15, 2022 12:00 AM Laboratory - Chemistry PT & INR (COUMADIN) [facility] (BLUE[facility]PLASMA) [facility]CE Oct 29, 2022 12:00 AM Laboratory - Chemistry PT & INR (COUMADIN) [facility] Order BLOOD (BLUE-PLASMA) (631GE) SP ONCE Nov 02, 2022 12:00 AM Laboratory - Chemistry PT & INR (COUMADIN) [facility] Order BLOOD (BLUE-PLASMA) (631GE) SP ONCE [...] Reference Range Comment Oct 02, 2022 12:28 [facility] ETG SCREEN (wx) Specimen Typ e: [facility]INE [facility] Comment: CHRISTINE te st are [...] Sep 17, 2022 02:57 PM Reporting Lab: [facility] [address] [facility] [address] Performing Lab: [facility] [address] [facility] [address] ETG SCREEN (wx) SCREEN POS H Negative Oct 02, 2022 12:28 [facility] METHADONE SCREEN Specimen Ty pe: URINE PM [place] [facility] Comment: CHRISTINE te st are qualitative, any L or H flags only indicate a [facility] alert was sent. Ordering Provid er: BOYD GROSS Report Released Date/Time: Sep 17, 2022 02:57 PM Reporting Lab: [facility] [address] [facility] [address] Performing Lab: [facility] [address] [facility] [address] METHADONE SCREEN None detected(Negative) L Negative Oct 02, 2022 [facility] ALCOHOL, ETHYL URINE Specimen T ype: URINE 12:28 PM [facility] PANEL Comment: Urine with Cr [...] 02:57 PM Reporting Lab: [facility] [address] [facility] [address] Performing Lab: [facility] [address] [facility] [address] ALCOHOL, ETHYL URINE NONE-DETECTED NONE- DETECTED, cutoff = 10 mg/dL PH, CHRISTINE 5.6 4-10 CREATININE, CHRISTINE 67.17 >20 SP.GRAVITY, CHRISTINE 1.012 1.003-1.020 Oct 02, 2022 [facility] FENTANYL SCREEN Specimen Type: URINE 12:28 PM [facility] PANEL Comment: Urine with Cr [...] 02:57 PM Reporting Lab: [facility] [address] [facility] [address] Performing Lab: [address] [address] FENTANYL SCREEN NONE-DETECTED Negative: Cutoff = 1.00 ng/mL PH, CHRISTINE 5.6 4-10 CREATININE, CHRISTINE 66.53 >20 SP.GRAVITY, CHRISTINE 1.012 1.003-1.020 Oct 02, 2022 [facility] AMPHETAMINES SCREEN Specimen Ty pe: URINE 12:28 PM [facility] PANEL Comment: Urine with Cr [...] Sep 17, 2022 02:57 PM Reporting Lab: [address] [address] Performing Lab: [address] [address] AMPHETAMINES SCREEN NONE-DETECTED None-D etected, Cutoff = 1000 ng/mL PH, CHRISTINE 5.6 4-10 CREATININE, CHRISTINE 67.17 >20 SP.GRAVITY, CHRISTINE 1.012 1.003-1.020 Oct 02, 2022 [facility] BENZODIAZEPINES SCREEN Specimen Type: URINE 12:28 PM [facility]ES[facility] PANEL Comment: Urine with Cr [...] may have been adulterated. Ordering Provid er: AHMED,MOHAMMED JAWED Report Released Date/Time: Sep 17, 2022 02:57 PM Reporting Lab: [address] [address] Performing Lab: [address] [address] BENZODIAZEPINES SCREEN NONE-DETECTED Non e-Detected, Cutoff = 200 ng/mL PH, CHRISTINE 5.6 4-10 CREATININE, CHRISTINE 67.17 >20 SP.GRAVITY, CHRISTINE 1.012 1.003-1.020 Oct 02, 2022 [facility] CANNABINOIDS SCREEN Specimen Ty pe: URINE 12:28 PM MASSL8 [employer] [facility] PANEL Comment: Urine with Cr [...] Sep 17, 2022 02:57 PM Reporting Lab: [address] [address] Performing Lab: [address] [address] CANNABINOIDS SCREEN NONE-DETECTED None-D etected,Cutoff = 50 ng/mL PH, CHRISTINE 5.6 4-10 CREATININE, CHRISTINE 67.17 >20 SP.GRAVITY, CHRISTINE 1.012 1.003-1.020 Oct 02, 2022 [facility] BUPRENORPHINE SCREEN Specimen T ype: URINE 12:28 PM 50 [address] [employer] PANEL Comment: Urine with Cr <5 is [...] may have been adulterated. Ordering Provid er: AHBOYD PATEL Report Released Date/Time: Sep 17, 2022 02:57 PM Reporting Lab: [facility] [address] [facility] [address] Performing Lab: [facility] [address] [facility] [address] BUPRENORPHINE (URINE) NONE-DETECTED None Detected, Cutoff = 10.0 ng/mL PH, CHRISTINE 5.6 4-10 CREATININE, CHRISTINE 67.17 >20 SP.GRAVITY, CHRISTINE 1.012 1.003-1.020 Oct 02, 2022 [facility] COCAINE SCREEN Specimen Type: URINE 12:28 PM 50 [facility]CH[facility] PANEL Comment: Urine with Cr [...] 02:57 PM Reporting Lab: [facility] [address] [facility] [address] Performing Lab: [address] [address] COCAINE SCREEN NONE-DETECTED None-Detect ed,Cutoff = 300 ng/mL PH, CHRISTINE 5.6 4-10 CREATININE, CHRISTINE 67.17 >20 SP.GRAVITY, CHRISTINE 1.012 1.003-1.020 Oct 02, 2022 [facility] OPIATES SCREEN Specimen Type: URINE 12:28 PM [employer] [facility] PANEL Comment: Urine with Cr [...] Sep 17, 2022 02:57 PM Reporting Lab: [place] [facility] [place] [facility] [address] [facility] [address] Performing Lab: [place] [facility] [address] [facility] [address] OPIATES SCREEN NONE-DETECTED None-Detect ed, Cutoff = 300 ng/mL PH, CHRISTINE 5.6 4-10 CREATININE, CHRISTINE 67.17 >20 SP.GRAVITY, CHRISTINE 1.012 1.003-1.020 Oct 02, 2022 [facility] OXYCODONE SCREEN Specimen Type: URINE 12:28 PM [facility] PANEL Comment: Urine with Cr [...] Sep 17, 2022 02:57 PM Reporting Lab: [facility] [place] [facility] [address] [facility] [address] Performing Lab: [facility] [employer] [address] [facility] [address] OXYCODONE SCREEN POSITIVE HH None-Detected , Cutoff = 100 ng/mL PH, CHRISTINE 5.6 4-10 CREATININE, CHRISTINE 67.17 >20 SP.GRAVITY, CHRISTINE 1.012 1.003-1.020 Oct 02, 2022 12:21 [facility] PT & INR (COUMADIN) Specimen Type: PLASMA PM [facility] No comment enter ed. Ordering Provid er: MAT TAMAYO Report Released Date/Time: Sep 10, 2022 03:46 PM Reporting Lab: [facility] [place] [facility] [address] [facility] [address] Performing Lab: [place] [facility] [place] [address] [place] [address] INR 3.3 PROTIME 38.2 H 10.0-13.1 Social [...] PM VA-TOBACCO FORMER USER [facility] Tobacco Use History This section includes a history of the smoking, or tobacco- related health factors, that were collected on or before the date of the Encounter. The data comes from the [place] facility where the Encounter took place. Date/Time Smoking Status/Tobacco Comment Facility Use Apr 30, 2022 01:00 VA-TOBACCO QUIT 15 YRS OR [facility] PM [place] [facility] Mar 20, 2021 01:00 VA-TOBACCO FORMER USER [facility] PM [place] [facility] Mar 20, 2021 01:00 VA-TOBACCO QUIT 15 YRS OR [facility] PM [place] [facility] January 17, 2020 11:33 VA-TOBACCO FORMER USER [facility] [place] [facility] January 17, 2020 11:33 VA-TOBACCO QUIT 15 YRS OR [facility] AM [place] [facility] Nov 23, 2018 01:22 VA-TOBACCO FORMER USER [facility] PM [place] [facility] Nov 23, 2018 01:22 VA-TOBACCO QUIT 15 YRS OR [facility] PM [place] [facility] January 18, 2018 12:53 QUIT TOBACCO USE 1-7 [facility] PM YEARS AGO PT STATES HE STOPP 4 YR AGO [place] [facility] Dec 09, 2016 01:07 QUIT TOBACCO USE > 7 [facility] PM YEARS AGO [place] [facility] Nov 11, 2015 01:13 QUIT TOBACCO USE > 7 [facility] PM YEARS AGO [place] [facility] Nov 19, 2004 03:17 HISTORY OF SMOKING [facility] Aug 10, 2003 01:03 HISTORY OF SMOKING [place] [facility] PM [facility] Apr 12, 2002 02:36 QUIT TOBACCO USE > 7 [place] [facility] PM YEARS AGO [facility] Encounter Notes: All associated encounter notes This section contains the clinical notes associated to the Encounter. Date/Time Encounter Note(s) Provider Source Oct 15, 2022 09:59 AM ACCOUNTING OF DISCLOSURES NOTE: RAHEEM SILVER [facility] LOCAL TITLE: [facility] PRESCRIPTION DRUG MONITORING PROGRAM [facility] STANDARD TITLE: ACCOUNTING OF DISCLOSURES NOTE DATE OF NOTE: OCT 15, 2022@09:59:43 ENTRY DATE: OCT 15, 2022@09:59:43 AUTHOR: KYLE SILVER EXP COSIGNER: URGENCY: STATUS: COMPLETED This PDMP query was submitted by Sabino Silver. The clinical justification for this PDMP query i s to review controlled substances prescribed outside of the [facility], and any additional information that may become available, as an important compo nent of standard clinical care, and in accordance with [facility] policy. Patient information was shared with the PDMP [facility] [employer] [place]. No prescription(s) for controlled substances out side the [facility] were found in the last 90 days. /yeimy/ KYLE SILVER MD PSYCHIATRIST Signed: 10/15/2022 10:00
--- OUTSIDE RECORDS SUMMARY | 2022-11-03 05:58 | XMS_ITS ---
:1945 Author Organization [facility] rs Address [address] [place] [id number] Support Name Relationship Address Phone EJ SCHULTE Unavailable [address] [place] [address] EJ SCHULTE Unavailable [address] [place] [address] Insurance Providers: All historical and current Section [...] Name to Policy Number Spann WILVER MESSERT [facility] Aug 23, [id number] [phone] POLY NIELSON,J PATIENT ION 2015 7 3 JUSTIN GEHA FEHB PREFERRED [facility] Aug 23, [id number] [phone] Bertha RICHARDSON PATIENT PROVIDER MICHELA 2012 ALTH 7 136 JUSTIN ORGANIZAT GOV ION (PPO) GEHA FEHB PREFERRED GEHA Aug 23, [id number] [phone] AKUALisa PHOENIXJ PATIENT PROVIDER DAVID 2012 2 7 136 JUSTIN ORGANIZAT CTION ION (PPO) DENT MEDICARE MEDICARE PART Sep 23, PART A [id number] Bertha FENG PATIENT (WNR) (M) A 2010 [id number] 2 JUSTIN MEDICARE MEDICARE PART Sep 23, PART B [id number] Bertha FENG PATIENT (WNR) (M) B 2010 [id number] 2 JUSTIN Selected Encounter This section includes the information on record at [place] for the Encounter. Date/Time Encounter Type Encounter Reason Provider Source Description Oct 15, 2022 10:26 Outpatient [facility] AM Encounter CLINIC - IND N IHE Encounter Template Text not used by [place] Plan of Treatment: Future Appointments (+ 6 months) and Future Tests (+/- 45 days) The Plan of Treatment section includes future care activities for the patient from all [place] [facility] This section includes future appointments and future orders which are active, pending orscheduled.Future Appointments This section includes appointments that were scheduled to occur 6 months from the date of the Encounter, up to a maximum of 20 appointments. The data comes from all [place] treatment facilities. Appointment Date/Time Appointment Type Appointment Facili ty Name Nov 02, 2022 12:10 PM AMBULATORY - MEDICINE [facility] Nov 12, 2022 12:45 PM AMBULATORY MEDICINE [facility] December 23, 2022 01:30 PM AMBULATORY - MEDICINE [facility] December 28, 2022 01:30 PM AMBULATORY - PSYCHIATRY [facility] Active, Pending, and Scheduled [...] The data comes from all [place] treatment [facility]. Test Date/Time Test Type Test Details Facility Name Aug 31, 2022 12:00 AM Laboratory - Chemistry CBC AND DIFF (AUTO) [facility] Aug 31, 2022 12:00 AM Laboratory - Chemistry BNP (Natriuretic [facility] Order Peptide Brain) [facility] BLOOD (LAV-PLASMA) SP Aug 31, 2022 12:00 AM Laboratory - Chemistry PT & INR (PROTIME) [facility] Order BLOOD (BLUE-PLASMA) [facility] SP Aug 31, 2022 12:00 AM Laboratory - Chemistry PTT BLOOD [facility] Order (BLUE-PLASMA) [facility] Sep 09, 2022 12:00 AM Laboratory - Chemistry PT & INR (COUMADIN) [facility] Order BLOOD (BLUE-PLASMA) [facility] SP ONCE Oct 15, 2022 12:00 AM Laboratory - Chemistry PT & INR (COUMADIN) [facility] Order BLOOD (BLUE-PLASMA) [facility] SP ONCE Oct 29, 2022 12:00 AM Laboratory - Chemistry PT & INR (COUMADIN) [facility] Order BLOOD (BLUE-PLASMA) (631GE) SP ONCE Nov 02, 2022 12:00 AM Laboratory - Chemistry PT & INR (COUMADIN) [facility] Order BLOOD (BLUE-PLASMA) (631GE) SP ONCE Lab [...] Reference Range Comment Oct 02, 2022 12:28 [facility] ETG SCREEN (wx) Specimen Typ e: URINE PM [facility] Comment: CHRISTINE te st are qualitative, [...] 2022 02:57 PM Reporting Lab: [facility] [address] [facility] [address] Performing Lab: [facility] [address] [facility] [address] ETG SCREEN (wx) SCREEN POS H Negative Oct 02, 2022 12:28 [facility] M[facility]ONE S[facility]EN Specimen Ty pe: URINE PM [facility] Comment: CHRISTINE te st are qualitative, any L or H flags only indicate a [facility] alert was sent. Ordering Provid er: BOYD GROSS Report Released Date/Time: Sep 17, 2022 02:57 PM Reporting Lab: [facility] [address] [facility] [address] Performing Lab: [facility] [address] [facility] [address] METHADONE SCREEN None detected(Negative) L Negative Oct 02, [facility]TAMINES [facility] Specimen Ty pe: URINE 12:28 PM [place] [facility] PANEL Comment: Urine with Cr <5 [...] Sep 17, 2022 02:57 PM Reporting Lab: [facility] [address] [facility] [address] Performing Lab: [facility] [address] [facility] [address] AMPHETAMINES SCREEN NONE-DETECTED None-D etected, Cutoff = 1000 ng/mL PH, CHRISTINE 5.6 4-10 CREATININE, CHRISTINE 67.17 >20 SP.GRAVITY, CHRISTINE 1.012 1.003-1.020 Oct 02, 2022 [facility] ALCOHOL, ETHYL URINE Specimen T ype: URINE 12:28 PM [facility] PANEL Comment: Urine with Cr <5 [...] Sep 17, 2022 02:57 PM Reporting Lab: [address] [address] Performing Lab: [address] [address] ALCOHOL, ETHYL URINE NONE-DETECTED NONE- DETECTED, cutoff = 10 mg/dL PH, CHRISTINE 5.6 4-10 CREATININE, CHRISTINE 67.17 >20 SP.GRAVITY, CHRISTINE 1.012 1.003-1.020 Oct 02, 2022 [facility] FENTANYL SCREEN Specimen Type: URINE 12:28 PM [facility] PAN[facility] Comment: Urine with Cr <5 [...] Sep 17, 2022 02:57 PM Reporting Lab: [address] [address] Performing Lab: [address] [address] FENTANYL SCREEN NONE-DETECTED Negative: Cutoff = 1.00 ng/mL PH, CHRISTINE 5.6 4-10 CREATININE, CHRISTINE 66.53 >20 SP.GRAVITY, CHRISTINE 1.012 1.003-1.020 Oct 02, 2022 [facility] BENZODIAZEPINES SCREEN Specimen Type: URINE 12:28 PM [facility] PANEL Comment: Urine with Cr <5 [...] may have been adulterated. Ordering Provid er: RENATOJESSEJON ELLINGTON Report Released Date/Time: Sep 17, 2022 02:57 PM Reporting Lab: [address] [address] Performing Lab: [address] [address] BENZODIAZEPINES SCREEN NONE-DETECTED Non e-Detected, Cutoff = 200 ng/mL PH, CHRISTINE 5.6 4-10 CREATININE, CHRISTINE 67.17 >20 SP.GRAVITY, CHRISTINE 1.012 1.003-1.020 Oct 02, 2022 [facility] CANNABINOIDS SCREEN Specimen Ty pe: URINE 12:28 PM [facility] PANEL Comment: Urine with Cr <5 [...] Sep 17, 2022 02:57 PM Reporting Lab: [address] [address] Performing Lab: [address] [address] CANNABINOIDS SCREEN NONE-DETECTED None-D etected,Cutoff = 50 ng/mL PH, CHRISTINE 5.6 4-10 CREATININE, CHRISTINE 67.17 >20 SP.GRAVITY, CHRISTINE 1.012 1.003-1.020 Oct 02, 2022 [facility] BUPRENORPHINE SCREEN Specimen T ype: URINE 12:28 PM [facility] PANEL Comment: Urine with Cr <5 is [...] Sep 17, 2022 02:57 PM Reporting Lab: [facility] [address] [facility] [address] Performing Lab: [address] [address] BUPRENORPHINE (URINE) NONE-DETECTED None Detected, Cutoff = 10.0 ng/mL PH, CHRISTINE 5.6 4-10 CREATININE, CHRISTINE 67.17 >20 SP.GRAVITY, CHRISTINE 1.012 1.003-1.020 Oct 02, 2022 [facility] COCAINE SCREEN Specimen Type: URINE 12:28 PM [facility] PANEL Comment: Urine with Cr <5 is [...] Sep 17, 2022 02:57 PM Reporting Lab: [address] [address] Performing Lab: [address] [address] COCAINE SCREEN NONE-DETECTED None-Detect ed,Cutoff = 300 ng/mL PH, CHRISTINE 5.6 4-10 CREATININE, CHRISTINE 67.17 >20 SP.GRAVITY, CHRISTINE 1.012 1.003-1.020 Oct 02, 2022 [facility] OPIATES SCREEN Specimen Type: URINE 12:28 PM [employer] PANEL Comment: Urine with Cr <5 is [...] Sep 17, 2022 02:57 PM Reporting Lab: [facility] [address] [facility] [address] Performing Lab: [facility] [address] [facility] [address] OPIATES SCREEN NONE-DETECTED None-Detect ed, Cutoff = 300 ng/mL PH, CHRISTINE 5.6 4-10 CREATININE, CHRISTINE 67.17 >20 SP.GRAVITY, CHRISTINE 1.012 1.003-1.020 Oct 02, 2022 [place] [facility] OXYCODONE SCREEN Specimen Type: URINE 12:28 PM [facility] PANEL Comment: Urine with Cr <5 [...] Sep 17, 2022 02:57 PM Reporting Lab: [facility] [address] [facility] [address] Performing Lab: [facility] [address] [facility] [address] OXYCODONE SCREEN POSITIVE HH None-Detected , Cutoff = 100 ng/mL PH, CHRISTINE 5.6 4-10 CREATININE, CHRISTINE 67.17 >20 SP.GRAVITY, CHRISTINE 1.012 1.003-1.020 Oct 02, 2022 12:21 [facility] PT & INR (COUMADIN) Specimen Type: PLASMA PM [facility] No comment enter ed. Ordering Provid er: MAT TAMAYO Report Released Date/Time: Sep 10, 2022 03:46 PM Reporting Lab: [facility] [address] [facility] [address] Performing Lab: [facility] [place] [address] [facility] [address] INR 3.3 PROTIME 38.2 H 10.0-13.1 Social [...] VA-TOBACCO FORMER USER [facility] [place] [facility] Tobacco Use History This section includes a history of the smoking, or tobacco- related health factors, that were collected on or before the date of the Encounter. The data comes from the [place] facility where the Encounter took place. Date/Time Smoking Status/Tobacco Comment Facility Use Apr 30, 2022 01:00 VA-TOBACCO QUIT 15 YRS OR [facility] PM [place] [facility] Mar 20, 2021 01:00 VA-TOBACCO FORMER USER [facility] PM [place] [facility] Mar 20, 2021 01:00 VA-TOBACCO QUIT 15 YRS OR [facility] PM [place] [facility] January 17, 2020 11:33 VA-TOBACCO FORMER USER [facility] [place] [facility] January 17, 2020 11:33 VA-TOBACCO QUIT 15 YRS OR [facility] [place] [facility] Nov 23, 2018 01:22 VA-TOBACCO FORMER USER [facility] PM [place] [facility] Nov 23, 2018 01:22 VA-TOBACCO QUIT 15 YRS OR [facility] PM [place] [facility] January 18, 2018 12:53 QUIT TOBACCO USE 1-7 [facility] PM YEARS AGO PT STATES HE STOPP 4 YR AGO [place] [facility] Dec 09, 2016 01:07 QUIT TOBACCO USE > 7 [facility] PM YEARS A[place] [facility] Nov 11, 2015 01:13 QUIT TOBACCO USE > 7 [facility] PM YEARS A[place] [facility] Nov 19, 2004 03:17 HISTORY OF SMOKING [facility] PM quit 30 yrs ago [facility] Aug 10, 2003 01:03 HISTORY OF SMOKING [place] [facility] PM [facility] Apr 12, 2002 02:36 QUIT TOBACCO USE > 7 [place] [facility] PM YEARS AGO [facility] Encounter Notes: All associated encounter notes This section contains the clinical notes associated to the Encounter. Date/Time Encounter Note(s) Provider Source Oct 15, 2022 10:26 AM [facility] SECURE MESSAGING: RAHEEM SILVER [facility] LOCAL TITLE: MENTAL HEALTH SECURE MESSAGING [facility] STANDARD TITLE: MENTAL HEALTH SECURE MESSAGING DATE OF NOTE: OCT 15, 2022@10:26 ENTRY DATE: OCT 15, 2022@10:26:26 AUTHOR: KYLE SILVER EXP COSIGNER: URGENCY: STATUS: COMPLETED ------Original Message Sent: 10/14/2022 05:28 PM ET From: KAMLA SCHULTE To: [email or web address] Subject: Medication:zolpidem refill My zolpidem refill has . Please restore t o refill list. Thanks Derrell Schulte ------Original Message Sent: 10/15/2022 10:26 AM ET From: KYLE SILVER To: KAMLA SCHULTE Subject: Medication:zolpidem refill [place] Dove, I refilled the zolpidem. It is on hold until you need it refilled next as it was just filled recently. Take care, Dr. Silver /yeimy/ KYLE SILVER MD PSYCHIATRIST Signed: 10/15/2022 10:26
--- OUTSIDE RECORDS SUMMARY | 2022-11-03 05:59 | XMS_ITS | Encounter Summary ---
:1945 Author Organization [facility] rs Address [address] [place] [address] Support Name Relationship Address Phone EJ SCHULTE Unavailable [address] [facility] [place] [address] EJ SCHULTE Unavailable [address] [place] [address] Insurance Providers: All historical and current Section [...] Name to Policy Number Spann WILVER [facility] Aug 23, [id number] [phone] POLY NIELSON,J PATIENT ION 2015 7 3 JUSTIN GEHA FEHB PREFERRED MANUEL Aug 23, [id number] [phone] Bertha RICHARDSON PATIENT PROVIDER AL 2012 ALTH 7 136 JUSTIN ORGANIZAT GOV ION (PPO) GEHA FEHB PREFERRED GEHA Aug 23, [id number] [phone] AKUA KARLOSON,J PATIENT PROVIDER DAVID 2012 2 7 136 JUSTIN ORGANIZAT CTION ION (PPO) DENT MEDICARE MEDICARE PART Sep 23, PART A [id number] Bertha FENG PATIENT (WNR) (M) A 2010 2 JUSTIN MEDICARE MEDICARE PART Sep 23, PART B [id number] Bertha FENG PATIENT (WNR) (M) B 2010 2 JUSTIN Selected Encounter This section includes the information on record at [place] for the Encounter. Date/Time Encounter Type Encounter Reason Provider Source Description Oct 16, 2022 HC PRO PHONE TELEPHONE/ANCILLA ICD-10-CM Z51.81 Aracely JUAN HRISTI 10:11 AM CALL 5-10 MIN RY Encounter for NE F therapeutic drug level monitoring with Provider Comments: Therapeutic Drug Level Monitoring IHE Encounter Template Text not used by [facility] Assessments - Encounter Diagnoses This section includes the primary and secondary diagnoses documented for the Encounter. Date/Time Primary/Secondary Diagnosis Name Provider Source Diagnosis Oct 16, 2022 PRIMARY Encounter for [facility] 10:11 AM therapeutic drug [facility] (6[facility] level monitoring Oct 16, 2022 SECONDARY [facility]current[facility] AM use of [facility] (6[facility] anticoagulants Oct 16, 2022 SECONDARY Presence of other [facility] 10:11 AM heart-valve [facility] (631GE) replacement Plan of Treatment: Future Appointments (+ 6 months) and Future Tests (+/- 45 days) The Plan of Treatment section includes future care activities for the patient from all [place] [facility]. This section includes future appointments and future orders which are active, pending orscheduled.Future Appointments This section includes appointments that were scheduled to occur 6 months from the date of the Encounter, up to a maximum of 20 appointments. The data comes from all [place] treatment [facility]. Appointment Date/Time Appointment Type Appointment Facili ty Name Nov 02, 2022 12:10 PM AMBULATORY - MEDICINE [facility] Nov 12, 2022 12:45 PM AMBULATORY MEDICINE [facility] December 23, 2022 01:30 PM AMBULATORY MEDICINE [facility] December 28, 2022 01:30 PM AMBULATORY - PSYCHIATRY [facility] Active, Pending, and Scheduled Orders This section includes a listing of several types of active, pending, and scheduled orders, including clinic medications orders, diagnostic test orders, procedure orders and consult orders; where the start date of the order is 45 days before the date of the Encounter or 45 days after the date of the Encounter. The data comes from all [place] treatment facilities. Test Date/Time Test Type Test Details Facility Name Sep 09, 2022 12:00 AM Laboratory - Chemistry PT & INR (COUMADIN) [facility] Order BLOOD (BLUE-PLASMA) [facility] SP ONCE Oct 15, 2022 12:00 AM Laboratory - Chemistry PT & INR (COUMADIN) [facility] Order BLOOD (BLUE-PLASMA) [facility] SP ONCE Oct 29, 2022 12:00 AM Laboratory - Chemistry PT & INR (COUMADIN) [facility] Order BLOOD (BLUE-PLASMA) (631GE) SP ONCE Nov 02, 2022 12:00 AM Laboratory - Chemistry PT & INR (COUMADIN) [facility] Order BLOOD (BLUE-PLASMA) (631GE) SP ONCE [...] Reference Range Comment Oct 02, 2022 12:28 [place] [facility] METHADONE SCREEN Specimen Ty pe: URINE PM [place] [facility] Comment: CHRISTINE te st are qualitative, any L or H flags only indicate a VA alert was sent. Ordering Provid er: BOYD GROSS Report Released Date/Time: Sep 17, 2022 02:57 PM Reporting [facility] [address] [address] Performing Lab: [facility] [address] [facility] [address] METHADONE SCREEN None detected(Negative) L Negative Oct 02, 2022 12:28 [facility]EN (wx) Specimen Typ e: URINE PM [place] [facility] Comment: CHRISTINE te st are qualitative, any L or H flags only indicate a VA alert was sent. This ETG test was developed and its performance characteristics determined by [place] clinical lab. The [place] Food and Cipriano g Administration has not approved or cleared this test, FDA clearance or approval is not currently required for clinical use. ETG cutoff 500 ng/mL CHRISTINE Screens are for medical purposes. For confirmation use CHRISTINE Confirmation Add on Menu in CPRS. Ordering Provid er: BOYD GROSS Report Released Date/Time: Sep 17, 2022 02:57 PM Reporting Lab: [facility] [address] [address] Performing Lab: [facility] [address] [facility] [address] ETG SCREEN (wx) SCREEN POS H Negative Oct 02, 2022 [facility] ALCOHOL, ETHYL URINE Specimen T ype: URINE 12:28 PM [facility] PANEL Comment: Urine with Cr <5 [...] Sep 17, 2022 02:57 PM Reporting Lab: [facility] [address] [address] Performing Lab: [facility] [address] [address] ALCOHOL, ETHYL URINE NONE-DETECTED NONE- DETECTED, cutoff = 10 mg/dL PH, CHRISTINE 5.6 4-10 CREATININE, CHRISTINE 67.17 >20 SP.GRAVITY, CHRISTINE 1.012 1.003-1.020 Oct 02, 2022 [facility] [facility] Specimen Type: URINE 12:28 PM [facility] PANEL Comment: Urine with Cr [...] Sep 17, 2022 02:57 PM Reporting Lab: [address] [address] Performing Lab: [address] [address] FENTANYL SCREEN NONE-DETECTED Negative: Cutoff = 1.00 ng/mL PH, CHRISTINE 5.6 4-10 CREATININE, CHRISTINE 66.53 >20 SP.GRAVITY, CHRISTINE 1.012 1.003-1.020 Oct 02, 2022 [place] [facility] AMPHETAMINES SCREEN Specimen Ty pe: URINE 12:28 PM [facility] PANEL Comment: Urine with Cr [...] Sep 17, 2022 02:57 PM Reporting Lab: [address] [address] Performing Lab: [address] [address] AMPHETAMINES SCREEN NONE-DETECTED None-D etected, Cutoff = 1000 ng/mL PH, CHRISTINE 5.6 4-10 CREATININE, CHRISTINE 67.17 >20 SP.GRAVITY, CHRISTINE 1.012 1.003-1.020 Oct 02, 2022 [facility] BENZODIAZEPINES SCREEN Specimen Type: URINE 12:28 PM [facility] PANEL Comment: Urine with Cr [...] Sep 17, 2022 02:57 PM Reporting Lab: [address] [address] Performing Lab: [address] [address] BENZODIAZEPINES SCREEN NONE-DETECTED Non e-Detected, Cutoff = 200 ng/mL PH, CHRISTINE 5.6 4-10 CREATININE, CHRISTINE 67.17 >20 SP.GRAVITY, CHRISTINE 1.012 1.003-1.020 Oct 02, 2022 [facility] BUPRENORPHINE SCREEN Specimen T ype: URINE 12:28 PM [employer] PANEL Comment: Urine with Cr <5 is [...] Sep 17, 2022 02:57 PM Reporting Lab: [address] [address] Performing Lab: [address] [address] BUPRENORPHINE (URINE) NONE-DETECTED None Detected, Cutoff = 10.0 ng/mL PH, CHRISTINE 5.6 4-10 CREATININE, CHRISTINE 67.17 >20 SP.GRAVITY, CHRISTINE 1.012 1.003-1.020 Oct 02, 2022 [facility] COCAINE SCREEN Specimen Type: URINE 12:28 PM [employer] PANEL Comment: Urine with Cr <5 is [...] Sep 17, 2022 02:57 PM Reporting Lab: [facility] [address] [address] Performing Lab: [facility] [address] [address] COCAINE SCREEN NONE-DETECTED None-Detect ed,Cutoff = 300 ng/mL PH, CHRISTINE 5.6 4-10 CREATININE, CHRISTINE 67.17 >20 SP.GRAVITY, CHRISTINE 1.012 1.003-1.020 Oct 02, 2022 [facility] OPIATES SCREEN Specimen Type: URINE 12:28 PM [place] [facility] PANEL Comment: Urine with Cr [...] Sep 17, 2022 02:57 PM Reporting Lab: [facility] [address] [address] Performing Lab: [facility] [address] [address] OPIATES SCREEN NONE-DETECTED None-Detect ed, Cutoff = 300 ng/mL PH, CHRISTINE 5.6 4-10 CREATININE, CHRISTINE 67.17 >20 SP.GRAVITY, CHRISTINE 1.012 1.003-1.020 Oct 02, 2022 [facility] OXY[facility]ONE [facility] Specimen Type: URINE 12:28 PM [employer] Corporation[employer] [facility] PANEL Comment: Urine with Cr [...] Sep 17, 2022 02:57 PM Reporting Lab: [facility] [address] [address] Performing Lab: [facility] [address] [address] OXYCODONE SCREEN POSITIVE HH None-Detected , Cutoff = 100 ng/mL PH, CHRISTINE 5.6 4-10 CREATININE, CHRISTINE 67.17 >20 SP.GRAVITY, CHRISTINE 1.012 1.003-1.020 Oct 02, 2022 [facility] CANNABINOIDS SCREEN Specimen Ty pe: URINE 12:28 PM [facility] PANEL Comment: Urine with Cr <5 [...] Sep 17, 2022 02:57 PM Reporting Lab: [address] [address] Performing Lab: [address] [address] CANNABINOIDS SCREEN NONE-DETECTED None-D etected,Cutoff = 50 ng/mL PH, CHRISTINE 5.6 4-10 CREATININE, CHRISTINE 67.17 >20 SP.GRAVITY, CHRISTINE 1.012 1.003-1.020 Oct 02, 2022 12:21 [facility] Specimen Type: PLASMA PM [facility] No comment enter ed. Ordering Provid er: MAT TAMAYO Report Released Date/Time: Sep 10, 2022 03:46 PM Reporting Lab: [address] [facility] [address] Performing Lab: [place] CN[facility]L WSN [address] [facility] [address] INR 3.3 PROTIME 38.2 H 10.0-13.1 Encounter Notes: All associated encounter notes This section contains the clinical notes associated to the Encounter. Date/Time Encounter Note(s) Provider Source Oct 16, 2022 10:11 PHARMACY MEDICATION MGT NOTE: DANIELLA JUAN [facility] LOCAL TITLE: PHARMACY ANTICOAGULATION NOTE (631GE) STANDARD TITLE: PHARMACY MEDICATION MGT NOTE DATE OF NOTE: OCT 16, 2022@10:11 ENTRY DATE: OCT 16, 2022@10:11:05 AUTHOR: EDWIN JUAN EXP COSIGNER: URGENCY: STATUS: COMPLETED PHARMACY ANTICOAGULATION NOTE Has ADDENDA * REFERRED TO CLINIC ON: 06/14/07 PRIMARY CARE PHYSICIAN: Dr. James SHABAZZ INFORMATION: OTHER CONTACT INFORMATION: PATIENT'S PHONE #: [phone] cell (call first ) [phone] home - can speak w/ Ej per pt's verbal authorization CLINIC LOCATION: [facility] COUMADIN THERAPY INITIATED ON: 1992 PLANNED DURATION OF THERAPY: lifetime ESTIMATED STOP DATE: n/a INDICATION FOR COUMADIN: St See's valve GOAL INR: 2-3 (goal changed 09/29/13) RELEVANT HISTORY: DRUG INTERACTIONS: ASA, citalopram, lansoprazole , APAP, co Q10 Last CBC: 06/11/22 Last PCP appt: 06/25/22 RECENT DOSING HISTORY (dose in mg): DATE Wed SAT INR 12/01/21 5 7.5 5 [...] 7.5 5 7.5 5 7.5 5 3.3 10/14/22 BRL 5 7.5 5 7.5 5 7.5 5 2.9 follow bridge instructions *spoke with pt* CORRECT DOSE: yes, verified MISSED DOSES: none BLEEDING: none NEW EVENTS: none PROCEDURES: shoulder surgery 10/23/22, will be collin dging with enoxaparin MED CHANGES: Pt still taking oxycodone/APAP (5/3 25mg tablet 2-3x/day prn) and separate APAP (500mg BID prn) for shoulder pain - will monitor use DIET CHANGES: none, still has ~1 salad/week EtOH: ~1-2 beers a day or less TOBACCO: denies use TABLETS: filled x 90 days on 06/29/22 - renewed OTHER: takes dose in [facility] closer to his home (has [email or web address] insurance): OFFICE INFORMATION [address] [place] [address] Office TABLET STRENGTH: 5mg ASSESSMENT: INR is therapeutic at 2.9 (goal 2-3) PLAN: Informed pt of his INR result from today. Instructed pt via telephone to CONTINUE weekly warfarin dose of 42.5mg/ week, taking 5mg daily except 7.5mg on Mon/Wed/Fri through tomorrow, then HOLD for surgery and follow bridge schedule below. Will have pt take 7.5mg on Sat af ter surgery to boost then resume above maintenance dose. Informed p t of his next PT/INR scheduled on 10/29/22 which will be drawn at [facility]. Extended schedule discussed (sami armando letter only had through 10/29) in case INR result not back same day, will also send more enoxaparin to cover. Return to clinic: Oct - BRL Time spent with patient: 10 minutes EDUCATION Provided with verbal instructions: Yes Provided with written instructions: No Barriers to learning: No Readiness to learn: Yes Specific dose directions reviewed: Yes Opportunity for questions/discussion: Yes Reports understanding of instructions: Yes Further learning needs: No Provided patient education on the following: Dos e An INR was performed by a lab outside the [place]. Documentation of INR done outside this [facility]: INR Result: 2.9 Date COLLECTED: October 14, 2022 Location: Outside Healthcare Provider These results were verified by reviewing a copy of the outside laboratory report. INR 2.00-3.00: Therapeutic Will use following bridge plan for upcoming proc edure. Pt was counseled and schedule to be reviewed. (enoxaparin) (warfarin) Lovenox Coumadin Date AM PM Dose Sat 10/17 NONE NONE 5 mg = 1 tablets Sun 10/18 NONE 100mg NONE Mon 10/19 100mg 100mg NONE Tue 10/20 100mg 100mg NONE Wed 10/21 100mg 100mg NONE Elena 10/22 100mg NONE NONE Fri 10/23 NONE NONE NONE DATE OF PROCEDURE Sat 10/24 100mg 100mg 7.5 mg = 1.5 tablets Sun 10/25 100mg 100mg 5 mg = 1 tablets Mon 10/26 100mg 100mg 7.5 mg = 1.5 tablets Tue 10/27 100mg 100mg 5 mg = 1 tablets Wed 10/28 100mg 100mg 7.5 mg = 1.5 tablets Elena 10/29 100mg 100mg 5 mg = 0.5 tablets INR TOD AY Fri 10/30 100mg 7.5 mg = 1.5 tablets /yeimy/ EDWIN JUAN PharmD, [facility] CIT[facility]anchez Clinical Coning Machine Operator Signed: 10/16/2022 10:23 Receipt Acknowledged By: * AWAITING SIGNATURE * ZAK BOWER 10/16/2022 ADDENDUM STATUS: COMPLETED Correction: Informed pt of his INR result from 10/14/22 (fax not checked 10/15/22). /yeimy/ EDWIN JUAN PharmD, BCGP Clinical Coning Machine Operator Signed: 10/16/2022 10:24
--- OUTSIDE RECORDS SUMMARY | 2022-11-03 05:59 | XMS_ITS | Encounter Summary ---
:1945 Author Organization [facility] rs Address [address] [place] [id number] Support Name Relationship Address Phone EJ SCHULTE Unavailable [address] [facility] [place] [address] EJ SCHULTE Unavailable [address] [place] [address] Insurance Providers: All historical and current Section [...] Name to Policy Number Spann WILVER PRESCRIPT [facility] Aug 23, [id number] [phone] POLY NIELSON,J PATIENT ION 2015 7 3 JUSTIN GEHA FEHB PREFERRED MANUEL Aug 23, [id number] [phone] Bertha RICHARDSON PATIENT PROVIDER AL 2012 ALTH 7 136 JUSTIN ORGANIZAT GOV ION (PPO) GEHA FEHB PREFERRED GEHA Aug 23, [id number] [phone] AKUA LIZETT,J PATIENT PROVIDER DAVID 2012 2 7 136 JUSTIN ORGANIZAT CTION ION (PPO) DENT MEDICARE MEDICARE PART Sep 23, PART A [id number] Bertha FENG PATIENT (WNR) (M) A 2010 2 JUSTIN MEDICARE MEDICARE PART Sep 23, PART B [id number] Bertha FENG PATIENT (WNR) (M) B 2010 2 JUSTIN Selected Encounter This section includes the information on record at [place] for the Encounter. Date/Time Encounter Type Encounter Reason Provider Source Description Oct 22, 2022 HC PRO PHONE TELEPHONE/ANCILLAR ICD-10-CM Z51.81 MONIQUE AHMADI 09:11 AM CALL 21-30 MIN Y Encounter for therapeutic drug level monitoring with Provider Comments: Therapeutic Drug Level Monitoring IHE Encounter Template Text not used by [place] Assessments - Encounter Diagnoses This section includes the primary and secondary diagnoses documented for the Encounter. 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 Appointment Date/Time Appointment Type Appointment Facili ty Name Nov 02, 2022 12:10 PM AMBULATORY - MEDICINE [facility] Nov 12, 2022 12:45 PM AMBULATORY - MEDICINE [facility] December 23, 2022 01:30 PM AMBULATORY - MEDICINE [facility] December 28, 2022 01:30 PM AMBULATORY - PSYCHIATRY [facility] Active, Pending, and Scheduled Orders This section includes a listing of several types of active, pending, and scheduled orders, including clinic medications orders, diagnostic test orders, procedure orders and consult orders; where the start date of the order is 45 days before the date of the Encounter or 45 days after the date of the Encounter. The data comes from all [place] treatment [facility]. Test Date/Time Test Type Test Details Facility Name Sep 09, 2022 12:00 AM Laboratory - Chemistry PT & INR (COUMADIN) [facility] Order BLOOD (BLUE-PLASMA) [facility] SP ONCE Oct 15, 2022 12:00 AM Laboratory - Chemistry PT & INR (COUMADIN) [facility] Order BLOOD (BLUE-PLASMA) [facility] SP ONCE Oct 29, 2022 12:00 AM Laboratory - Chemistry PT & INR (COUMADIN) [facility] Order BLOOD (BLUE-PLASMA) (631GE) SP ONCE Nov 02, 2022 12:00 AM Laboratory - Chemistry PT & INR (COUMADIN) [facility] Order BLOOD (BLUE-PLASMA) (631GE) SP ONCE [...] SCREEN (wx) Specimen Typ e: URINE PM [facility] Comment: CHRISTINE te st are qualitative, any L or H flags only indicate a [facility] alert was sent. This ETG test was developed and its performance characteristics determined by [place] clinical lab. The [place] Food and Cipriano g Administration has not approved or cleared this test, FDA clearance or approval is not currently required for clinical use. ETG cutoff 500 ng/mL CHRISTINE Screens are for medical purposes. For confirmation use CHRISTINE Confirmation Add on Menu in CPRS. Ordering Provid er: BOYD GROSS Report Released Date/Time: Sep 17, 2022 02:57 PM Reporting Lab: [facility] [place] [facility] [address] [facility] [address] Performing Lab: [facility] [address] [facility] [address] ETG SCREEN (wx) SCREEN POS H Negative Oct 02, 2022 12:28 [facility] WSTRN METHADONE SCREEN Specimen Ty pe: [facility]INE [facility] Comment: CHRISTINE te st are qualitative, any L or H flags only indicate a [facility] alert was sent. Ordering Provid er: BOYD GROSS Report Released Date/Time: Sep 17, 2022 02:57 PM Reporting Lab: [facility] [address] [facility] [address] Performing Lab: [facility] [address] [facility] [address] METHADONE SCREEN None detected(Negative) L Negative Oct 02, 2022 [facility]IATRN BENZODIAZEPINES SCREEN Specimen Type: URINE 12:28 PM [facility] PANEL Comment: Urine with Cr [...] Sep 17, 2022 02:57 PM Reporting Lab: [address] [address] Performing Lab: [address] [address] BENZODIAZEPINES SCREEN NONE-DETECTED Non e-Detected, Cutoff = 200 ng/mL PH, CHRISTINE 5.6 4-10 CREATININE, CHRISTINE 67.17 >20 SP.GRAVITY, CHRISTINE 1.012 1.003-1.020 Oct 02, 2022 [facility] BUPRENORPHINE SCREEN Specimen T ype: URINE 12:28 PM [facility] PANEL Comment: Urine with Cr [...] Sep 17, 2022 02:57 PM Reporting Lab: [address] [address] Performing Lab: [address] [address] BUPRENORPHINE (URINE) NONE-DETECTED None Detected, Cutoff = 10.0 ng/mL PH, CHRISTINE 5.6 4-10 CREATININE, CHRISTINE 67.17 >20 SP.GRAVITY, CHRISTINE 1.012 1.003-1.020 Oct 02, 2022 [facility] URINE Specimen T ype: URINE 12:28 PM [facility] PANEL Comment: Urine with Cr [...] Sep 17, 2022 02:57 PM Reporting Lab: [address] [address] Performing Lab: [address] [address] ALCOHOL, ETHYL URINE NONE-DETECTED NONE- DETECTED, cutoff = 10 mg/dL PH, CHRISTINE 5.6 4-10 CREATININE, CHRISTINE 67.17 >20 SP.GRAVITY, CHRISTINE 1.012 1.003-1.020 Oct 02, 2022 [facility] AMPHETAMINES SCREEN Specimen Ty pe: URINE 12:28 PM [facility] PANEL Comment: Urine with Cr [...] 2022 02:57 PM Reporting Lab: [facility] [address] [address] Performing Lab: [address] [address] AMPHETAMINES SCREEN NONE-DETECTED None-D etected, Cutoff = 1000 ng/mL PH, CHRISTINE 5.6 4-10 CREATININE, CHRISTINE 67.17 >20 SP.GRAVITY, CHRISTINE 1.012 1.003-1.020 Oct 02, 2022 [facility] FENTANYL SCREEN Specimen Type: URINE 12:28 PM [facility] PANEL Comment: Urine with Cr [...] Sep 17, 2022 02:57 PM Reporting Lab: [address] [address] Performing Lab: [address] [address] FENTANYL SCREEN NONE-DETECTED Negative: Cutoff = 1.00 ng/mL PH, CHRISTINE 5.6 4-10 CREATININE, CRHISTINE 66.53 >20 SP.GRAVITY, CHRISTINE 1.012 1.003-1.020 Oct 02, 2022 [facility] COCAINE SCREEN Specimen Type: URINE 12:28 PM [facility] PANEL Comment: Urine with Cr [...] Sep 17, 2022 02:57 PM Reporting Lab: [facility] [address] [facility] [address] Performing Lab: [address] [address] COCAINE SCREEN NONE-DETECTED None-Detect ed,Cutoff = 300 ng/mL PH, CHRISTINE 5.6 4-10 CREATININE, CHRISTINE 67.17 >20 SP.GRAVITY, CHRISTINE 1.012 1.003-1.020 Oct 02, 2022 [facility] OPIATES SCREEN Specimen Type: URINE 12:28 [...] Sep 17, 2022 02:57 PM Reporting Lab: [address] [address] Performing Lab: [address] [address] OPIATES SCREEN NONE-DETECTED None-Detect ed, Cutoff = 300 ng/mL PH, CHRISTINE 5.6 4-10 CREATININE, CHRISTINE 67.17 >20 SP.GRAVITY, CHRISTINE 1.012 1.003-1.020 Oct 02, 2022 [facility] CANNABINOIDS SCREEN Specimen Ty pe: URINE 12:28 PM [facility] PANEL Comment: Urine with Cr <5 [...] Sep 17, 2022 02:57 PM Reporting Lab: [facility] [address] [facility] [address] Performing Lab: [facility] WSTRN [facility] [address] [facility] [address] CANNABINOIDS SCREEN NONE-DETECTED None-D etected,Cutoff = 50 ng/mL PH, CHRISTINE 5.6 4-10 CREATININE, CHRISTINE 67.17 >20 SP.GRAVITY, CHRISTINE 1.012 1.003-1.020 Oct 02, 2022 [facility] OXYCODONE SCREEN Specimen Type: URINE 12:28 PM [facility] PANEL Comment: Urine with Cr [...] Sep 17, 2022 02:57 PM Reporting Lab: [facility] [address] [facility] [address] Performing Lab: [facility] [address] [facility] [address] OXYCODONE SCREEN POSITIVE HH None-Detected , Cutoff = 100 ng/mL PH, CHRISTINE 5.6 4-10 CREATININE, CHRISTINE 67.17 >20 SP.GRAVITY, CHRISTINE 1.012 1.003-1.020 Oct 02, 2022 12:21 [facility] W[facility]N PT & INR (COUMADIN) Specimen Type: PLASMA PM [facility] No comment enter ed. Ordering Provid er: MAT TAMAYO Report Released Date/Time: Sep 10, 2022 03:46 PM Reporting Lab: [facility] [address] [facility] [address] Performing Lab: [facility] [address] [facility] [address] INR 3.3 PROTIME 38.2 H 10.0-13.1 Encounter Notes: All associated encounter notes This section contains the clinical notes associated to the Encounter. Date/Time Encounter Note(s) Provider Source Oct 22, 2022 09:11 AM PHARMACY MEDICATION MGT NOTE: GARY AHMADI [facility] LOCAL TITLE: PHARMACY ANTICOAGULATION NOTE (631GE) STANDARD TITLE: PHARMACY MEDICATION MGT NOTE DATE OF NOTE: OCT 22, 2022@09:11 ENTRY DATE: OCT 22, 2022@09:11:26 AUTHOR: GARY AHMADI EXP COSIGNER: URGENCY: STATUS: COMPLETED REFERRED TO CLINIC ON: 06/14/07 PRIMARY CARE PHYSICIAN: Dr. James SHABAZZ INFORMATION: OTHER CONTACT INFORMATION: PATIENT'S PHONE #: [phone] 's cell ([facility]; [facility]ab[facility]elle [facility]) [phone] pt's cell; [facility] [phone] home - can speak w/ Ej per pt's verbal authorization CLINIC LOCATION: [facility] COUMADIN THERAPY INITIATED ON: [...] 5 7.5 5 2.9 follow bridge instructions 10/21/22 BRL 0 0 0 0 5 7.5 5 1.3 *spoke with pt's * CORRECT DOSE: confirms last dose of warfarin was Wednesday night and has been on enoxaparin 100mg BID since Wednesday PM as advi sed MISSED DOSES: holding warfarin as advised BLEEDING: bruising around enox injection site (c ounseled) NEW EVENTS: none PROCEDURES: shoulder surgery 10/23/22, currently h olding warfarin and bridging w/ enoxaparin MED CHANGES: Pt still taking oxycodone/APAP (5/3 25mg tablet 2-3x/day prn) and separate APAP (500mg BID prn) for shoulder pain ; denies other medication changes DIET CHANGES: per prev: has ~1 salad/week; today reports he hasn't been having salads for past 1-2 weeks (counseled re: consistency) EtOH: per prev: ~1-2 beers a day or less; today reports no EtOH for past week TOBACCO: denies use TABLETS: warfarin filled x 90 days on 10/02/22; ludy morales has enough enoxaparin, noted rx'd 20 syr 10/13 and 10 syr OTHER: takes dose in PM [facility] Ref Lab closer to his home (has privat e insurance): OFFICE INFORMATION [address] [place] [id number] Office TABLET STRENGTH: 5mg ASSESSMENT: INR is subtherapeutic at 1.3 (goal 2 -3) d/t holding warfarin periprocedurally and bridging w/ enoxaparin PLAN: Informed pt's of pt's INR result from yesterday via telephone. Reviewed the following periprocedural anticoagul ation plan as documented in addendum to 10/02/22 [facility] note: (enoxaparin) (warfarin) Lovenox Coumadin Date AM PM Dose Sat 10/17 NONE NONE 5 mg = 1 tablets Sun 10/18 NONE 100mg NONE 10/19 100mg 100mg NONE 10/20 100mg 100mg NONE 10/21 100mg 100mg NONE Elena 10/22 100mg NONE NONE 10/23 NONE NONE NONE DATE OF PROCEDURE 10/24 100mg 100mg 7.5 mg = 1.5 tablets Sun 10/25 100mg 100mg 5 mg = 1 tablets 10/26 100mg 100mg 7.5 mg = 1.5 tablets Tu10/27 100mg 100mg 5 mg = 1 tablets 10/28 100mg 100mg 7.5 mg = 1.5 tablets Elena 10/29 100mg 5 mg = 0.5 tablets INR TODAY Informed pt's of his next PT/INR scheduled on 10/29/22. INR likely to be drawn at [facility] though shares she may request surgeon to arrange VNA RN. Counseled that enoxaparin is to be continued until INR becomes therapeutic 2-3. repeated all dosing instructions ba freddy correctly and agrees to confirm re: safety of resuming anticoagulation with surgeon s/p surgery. Noted she was previously provided w/ mailed instructions. Noted booster dose advised for Tuesday 10/24 to a [facility] for quicker return to therapeutic INR, would consi shannon resuming prior therapeutic dose of 42.5mg/week, taking 5mg daily except 7.5mg on Wed/Wed/Wed the reafter. Return to clinic: Oct, 1 week - [facility] Time spent with patient: 28 minutes EDUCATION Provided with verbal instructions: Yes Provided with written instructions: No Barriers to learning: No Readiness to learn: Yes Specific dose directions reviewed: Yes Opportunity for questions/discussion: Yes Reports understanding of instructions: Yes Further learning needs: No Provided patient education on the following: None, Dose An INR was performed by a lab outside the [place]. Documentation of INR done outside this [facility]: INR Result: 1.3 Date COLLECTED: October 21, 2022 Location: Outside Healthcare Provider These results were verified by reviewing a copy of the outside laboratory report. INR <= 1.5: Not Therapeutic Subtherapeutic. Patient was counseled on the si gns and symptoms of clotting and instructed to present to the Emergency Depa rtment should any of these be noticed. /yeimy/ Gary Ahmaid PharmD, BCACP Clinical Music Teacher Signed: 10/22/2022 12:19 Receipt Acknowledged By: * AWAITING SIGNATURE * ZAK BOWER
--- OUTSIDE RECORDS SUMMARY | 2022-11-03 05:59 | XMS_ITS | Encounter Summary ---
:1945 Author Organization [facility] rs Address [address] [place] [address] Support Name Relationship Address Phone EJ SCHULTE Unavailable [address] [place] [address] EJ SCHULTE Unavailable [address] [place] [address] Insurance Providers: All historical and current Section [...] Name to Policy Number Spann WILVER MESSERT [facility] Aug 23, [id number] [phone] POLY NIELSON,J PATIENT ION 2015 7 3 JUSTIN GEHA FEHB PREFERRED [facility] Aug 23, [id number] [phone] Bertha RICHARDSON PATIENT PROVIDER AL 2012 ALTH 7 136 JUSTIN ORGANIZAT GOV ION (PPO) GEHA FEHB PREFERRED GEHA Aug 23, [id number] [phone] AKUA LIZETT,J PATIENT PROVIDER DAVID 2012 2 7 136 JUSTIN ORGANIZAT CTION ION (PPO) DENT MEDICARE MEDICARE PART Sep 23, PART A [id number] Bertha FENG PATIENT (WNR) (M) A 2010 [id number] 2 JUSTIN MEDICARE MEDICARE PART Sep 23, PART B [id number] Bertha FENG PATIENT (WNR) (M) B 2010 [id number] 2 JUSTIN Selected Encounter This section includes the information on record at [place] for the Encounter. Date/Time Encounter Type Encounter Description Reason Provider Source Oct 14, 2022 12:00 Outpatient Encounter EVENT (HISTORICAL) AM [...] The data comes from all [place] treatment [facility]. Appointment Date/Time Appointment Type Appointment Facili ty Name Nov 02, 2022 12:10 PM AMBULATORY - MEDICINE [facility] Nov 12, 2022 12:45 PM AMBULATORY MEDICINE [facility] December 23, 2022 01:30 PM AMBULATORY - MEDICINE [facility] December 28, 2022 01:30 PM AMBULATORY - PSYCHIATRY [facility] Active, Pending, and Scheduled Orders This section includes a listing of several types of active, pending, and scheduled orders, including clinic medications orders, diagnostic test orders, procedure orders and consult orders; where the start date of the order is 45 days before the date of the Encounter or 45 days after the date of the Encounter. The data comes from all [facility]. Test Date/Time Test Type Test Details Facility Name Aug 31, 2022 12:00 AM Laboratory - Chemistry PT & INR (PROTIME) [facility] Order BLOOD (BLUE-PLASMA) [facility] Aug 31, 2022 12:00 AM Laboratory - Chemistry PTT BLOOD [facility] Order (BLUE-PLASMA) [facility] Aug 31, 2022 12:00 AM Laboratory - Chemistry CBC AND DIFF (AUTO) [facility] Order BLOOD (LAV-BLOOD) [facility] SP Aug 31, 2022 12:00 AM Laboratory - Chemistry BNP (Natriuretic [facility] Order Peptide Brain) [facility] BLOOD (LAV-PLASMA) SP Sep 09, 2022 12:00 AM Laboratory - Chemistry PT & IN[facility]ADIN) [facility] ([facility]) [facility] SP ONCE Oct 15, 2022 12:00 AM Laboratory - Chemistry PT & INR (COUMADIN) [facility] Order [facility]LOOD (BLUE-PLASMA) [facility] SP ONCE Oct 29, 2022 12:00 AM Laboratory - Chemistry PT & INR (COUMADIN) [facility] Order BLOOD (BLUE-PLASMA) (631GE) SP ONCE Nov 02, 2022 12:00 AM Laboratory - Chemistry PT & INR (COUMADIN) [facility] Order BLOOD (BLUE-PLASMA) (631GE) SP ONCE [...] Reference Range Comment Oct 02, 2022 12:28 [employer] [facility] [employer] [facility] [employer] [facility] [facility] CLINICTRN ETG SCREEN (wx) Specimen Typ e: URINE PM [place] [facility] Comment: CHRISTINE te st are qualitative, [...] Sep 17, 2022 02:57 PM Reporting Lab: [facility] [employer]INICTRN [facility] [address] [facility] [address] Performing Lab: [facility] [address] [facility] [address] ETG SCREEN (wx) SCREEN POS H Negative Oct 02, 2022 12:28 [facility] METHADONE SCREEN Specimen Ty pe: URINE PM [place] [facility] Comment: CHRISTINE te st are qualitative, any L or H flags only indicate a VA alert was sent. Ordering Provid er: BOYD GROSS Report Released Date/Time: Sep 17, 2022 02:57 PM Reporting Lab: [facility] [address] [facility] [address] Performing Lab: [facility] [address] [facility] [address] METHADONE SCREEN None detected(Negative) L Negative Oct 02, 2022 [facility] ALCOHOL, ETHYL URINE Specimen T ype: URINE 12:28 PM [facility] PANEL Comment: Urine with Cr <5 [...] Sep 17, 2022 02:57 PM Reporting Lab: [facility] [address] [facility] [address] Performing Lab: [facility] [address] [facility] [address] ALCOHOL, ETHYL URINE NONE-DETECTED NONE- DETECTED, cutoff = 10 mg/dL PH, CHRISTINE 5.6 4-10 CREATININE, CHRISTINE 67.17 >20 SP.GRAVITY, CHRISTINE 1.012 1.003-1.020 Oct 02, 2022 [facility] AMPHETAMINES SCREEN Specimen Ty pe: URINE 12:28 PM [facility] PANEL Comment: Urine with Cr <5 [...] Sep 17, 2022 02:57 PM Reporting Lab: [address] [address] Performing Lab: [address] [address] AMPHETAMINES SCREEN NONE-DETECTED None-D etected, Cutoff = 1000 ng/mL PH, CHRISTINE 5.6 4-10 CREATININE, CHRISTINE 67.17 >20 SP.GRAVITY, CHRISTINE 1.012 1.003-1.020 Oct 02, 2022 [facility] FENTANYL SCREEN Specimen Type: URINE 12:28 PM [facility] PANEL Comment: Urine with Cr <5 [...] Sep 17, 2022 02:57 PM Reporting Lab: [address] [address] Performing Lab: [address] [address] FENTANYL SCREEN NONE-DETECTED Negative: Cutoff = 1.00 ng/mL PH, CHRISTINE 5.6 4-10 CREATININE, CHRISTINE 66.53 >20 SP.GRAVITY, CHRISTINE 1.012 1.003-1.020 Oct 02, 2022 [facility] BENZODIAZEPINES SCREEN Specimen Type: URINE 12:28 PM [facility] PANEL Comment: Urine with Cr <5 [...] Sep 17, 2022 02:57 PM Reporting Lab: [address] [address] Performing Lab: [address] [address] BENZODIAZEPINES SCREEN NONE-DETECTED Non e-Detected, Cutoff = 200 ng/mL PH, CHRISTINE 5.6 4-10 CREATININE, CHRISTINE 67.17 >20 SP.GRAVITY, CHRISTINE 1.012 1.003-1.020 Oct 02, 2022 [facility] [employer] [facility] [employer] [facility] [facility] CLINICTRN CANNABINOIDS SCREEN Specimen Ty pe: URINE 12:28 [...] Sep 17, 2022 02:57 PM Reporting Lab: [address] [address] Performing Lab: [address] [address] CANNABINOIDS SCREEN NONE-DETECTED None-D etected,Cutoff = 50 ng/mL PH, CHRISTINE 5.6 4-10 CREATININE, CHRISTINE 67.17 >20 SP.GRAVITY, CHRISTINE 1.012 1.003-1.020 Oct 02, 2022 [facility] BUPRENORPHINE SCREEN Specimen T ype: URINE 12:28 [...] Sep 17, 2022 02:57 PM Reporting Lab: [facility] [address] [facility] [address] Performing Lab: [address] [address] BUPRENORPHINE (URINE) NONE-DETECTED None Detected, Cutoff = 10.0 ng/mL PH, CHRISTINE 5.6 4-10 CREATININE, CHRISTINE 67.17 >20 SP.GRAVITY, CHRISTINE 1.012 1.003-1.020 Oct 02, 2022 [facility] WSTRN COCAINE SCREEN Specimen Type: URINE 12:28 PM [employer] [facility] PANEL Comment: Urine with Cr <5 [...] Sep 17, 2022 02:57 PM Reporting Lab: [address] [address] Performing Lab: [address] [address] COCAINE SCREEN NONE-DETECTED None-Detect ed,Cutoff = 300 ng/mL PH, CHRISTINE 5.6 4-10 CREATININE, CHRISTINE 67.17 >20 SP.GRAVITY, CHRISTINE 1.012 1.003-1.020 Oct 02, 2022 [facility] [employer] [facility] [employer] [facility] [facility] CLINICTRN OXYCODONE SCREEN Specimen Type: URINE 12:28 PM [employer] [facility] PANEL Comment: Urine with Cr <5 [...] Sep 17, 2022 02:57 PM Reporting Lab: [facility] [address] [facility] [address] Performing Lab: [facility] [employer] [facility] [employer] [facility] [facility] CLINICTRN [facility] [address] [facility] [address] OXYCODONE SCREEN POSITIVE HH None-Detected , Cutoff = 100 ng/mL PH, CHRISTINE 5.6 4-10 CREATININE, CHRISTINE 67.17 >20 SP.GRAVITY, CHRISTINE 1.012 1.003-1.020 Oct 02, 2022 [place] [facility] WSTRN OPIATES SCREEN Specimen Type: URINE 12:[address] [facility] PANEL Comment: Urine with Cr <5 [...] Sep 17, 2022 02:57 PM Reporting Lab: [facility] [address] [facility] [address] Performing Lab: [facility] [employer] [facility] [facility] CLINICTRN [facility] [address] [facility] [address] OPIATES SCREEN NONE-DETECTED None-Detect ed, Cutoff = 300 ng/mL PH, CHRISTINE 5.6 4-10 CREATININE, CHRISTINE 67.17 >20 SP.GRAVITY, CHRISTINE 1.012 1.003-1.020 Oct 02, 2022 12:21 [facility] PT & INR (COUMADIN) Specimen Type: PLASMA PM [facility] No comment enter ed. Ordering Provid er: MAT TAMAYO Report Released Date/Time: Sep 10, 2022 03:46 PM Reporting Lab: [facility] [address] [facility] [address] Performing Lab: [facility] [place] [address] [place] [address] INR 3.3 PROTIME 38.2 H 10.0-13.1 Social [...] [facility]ER [facility] Tobacco Use History This section includes a history of the smoking, or tobacco- related health factors, that were collected on or before the date of the Encounter. The data comes from the [place] facility where the Encounter took place. Date/Time Smoking Status/Tobacco Comment Facility Use Apr 30, 2022 01:00 VA-TOBACCO QUIT 15 YRS OR [facility] PM [place] [facility] Mar 20, 2021 01:00 VA-TOBACCO FORMER USER [facility] PM [place] [facility] Mar 20, 2021 01:00 VA-TOBACCO QUIT 15 YRS OR [facility] PM [place] [facility] January 17, 2020 11:33 VA-TOBACCO FORMER USER [facility] AM [place] [facility] January 17, 2020 11:33 VA-TOBACCO QUIT 15 YRS OR [facility] AM [place] [facility] Nov 23, 2018 01:22 VA-TOBACCO FORMER USER [facility] PM [place] [facility] Nov 23, 2018 01:22 VA-TOBACCO QUIT 15 YRS OR [facility] PM [place] [facility] January 18, 2018 12:53 QUIT TOBACCO USE 1-7 [facility] PM YEARS AGO PT STATES HE STOPP 4 YR AGO [place] [facility] Dec 09, 2016 01:07 QUIT TOBACCO USE > 7 [facility] PM YEARS AGO [place] [facility] Nov 11, 2015 01:13 QUIT TOBACCO USE > 7 [facility] PM YEARS AGO [place] [facility] Nov 19, 2004 03:17 HISTORY OF SMOKING [facility] PM quit 30 yrs ago [place] [facility] Aug 10, 2003 01:03 HISTORY OF SMOKING [facility] PM [facility] Apr 12, 2002 02:36 QUIT TOBACCO USE > 7 [facility] PM YEARS AGO [facility]
--- OUTSIDE RECORDS SUMMARY | 2022-11-03 06:00 | XMS_ITS | Encounter Summary ---
:1945 Author Organization [facility] rs Address [address] [place] [id number] Support Name Relationship Address Phone EJ SCHULTE Unavailable [address] [place] [address] EJ SCHULTE Unavailable [address] [place] [address] Insurance Providers: All historical and current Section Date Range: From patient's date of to the date document was created.This section includes the names of all active insurance providers for the patient. Insurance Type of Plan Start of End of Group Member Insurance Policy P atient's Provider Coverage Name Policy Policy Number ID Provider's Sapnn's Relationship Coverage Coverage Telephone Name to Policy Number Spann WILVER MESSERT [facility] Aug 23, [id number] [phone] POLY NIELSON,J PATIENT ION 2015 7 3 JUSTIN GEHA FEHB PREFERRED [facility] Aug 23, [id number] [phone] Bertha RICHARDSON PATIENT PROVIDER AL 2012 ALTH 7 136 JUSTIN ORGANIZAT GOV ION (PPO) GEHA FEHB PREFERRED GEHA Aug 23, [id number] [phone] AKUA LIZETT,J PATIENT PROVIDER DAVID 2012 2 7 136 JUSTIN ORGANIZAT CTION ION (PPO) DENT MEDICARE MEDICARE PART Sep 23, PART A [id number] Bertha FENG PATIENT (WNR) (M) A 2010 [id number] 2 JUSTIN MEDICARE MEDICARE PART Sep 23, PART B [id number] Bertha FENG PATIENT (WNR) (M) B 2010 [id number] 2 JUSTIN Selected Encounter This section includes the information on record [place] for the Encounter. Date/Time Encounter Type Encounter Description Reason Provider Source Oct 21, 2022 12:00 Outpatient Encounter EVENT (HISTORICAL) AM IHE Encounter Template Text not used by [place] Plan of Treatment: Future Appointments (+ 6 months) and Future Tests (+/- 45 days) The Plan of Treatment section includes future care activities for the patient from all [place] [facility] This section includes future appointments and future orders which are active, pending orscheduled.Future Appointments This section includes appointments that were scheduled to occur 6 months from the date of the Encounter, up to a maximum of 20 appointments. The data comes from all [place] treatment [facility]. Appointment Date/Time Appointment Type Appointment Facili ty Name Nov 02, 2022 12:10 PM AMBULATORY - MEDICINE [facility] Nov 12, 2022 12:45 PM AMBULATORY MEDICINE [facility] December 23, 2022 01:30 PM AMBULATORY - MEDICINE [facility] December 28, 2022 01:30 PM AMBULATORY - PSYCHIATRY [facility] Active, Pending, and Scheduled Orders This section includes a listing of several types of active, pending, and scheduled orders, including clinic medications orders, diagnostic test orders, procedure orders and consult orders; where the start date of the order is 45 days before the date of the Encounter or 45 days after the date of the Encounter. The data comes from all [facility]. Test Date/Time Test Type Test Details Facility Name Sep 09, 2022 12:00 AM Laboratory - Chemistry PT & INR (COUMADIN) [facility] Order BLOOD (BLUE-PLASMA) [facility] SP ONCE Oct 15, 2022 12:00 AM Laboratory - Chemistry PT & INR (COUMADIN) [facility] Order BLOOD (BLUE-PLASMA) [facility] SP ONCE Oct 29, 2022 12:00 AM Laboratory - Chemistry PT & INR (COUMADIN) [facility] Order BLOOD (BLUE-PLASMA) (631GE) SP ONCE Nov 02, 2022 12:00 AM Laboratory - Chemistry PT & INR (COUMADIN) [facility] Order BLOOD (BLUE-PLASMA) (631GE) SP ONCE Lab Results: +/- 30 days of the encounter This section includes the Chemistry and Hematology Lab Results on record with [place] for the patient. Radiology Reports and Pathology Reports are provided separately, in subsequent sections.Lab Results This section contains the Chemistry/Hematology Results that were resulted 30 days before or 30 daysafter the date of the Encounter. Date/Time Source Result Type Result - Unit Interpretation Reference Range Comment Oct 02, 2022 12:28 [place] [facility] [place] METHADONE SCREEN Specimen Ty pe: URINE PM [place] [facility] Comment: CHRISTINE te st are qualitative, any L or H flags only indicate a VA alert was sent. Ordering Provid er: AUDREY GROSSJACQUELINE ELLINGTON Report Released Date/Time: Sep 17, 2022 02:57 PM Reporting Lab: [facility] WSTRN [facility] [address] [facility] [address] Performing Lab: [facility] [address] [facility] [address] METHADONE SCREEN None detected(Negative) L Negative Oct 02, 2022 12:28 [facility] ETG SCREEN (wx) Specimen Typ e: URINE PM [place] [facility] Comment: CHRISTINE te st are qualitative, any L or H flags only indicate a VA alert was sent. This ETG test was developed and its performance characteristics determined by [place] clinical lab. The [place] Food and Cipriano g Administration has not approved or cleared this test, FDA clearance or approval is not currently required for clinical use. ETG cutoff 500 ng/mL CHRISTINE Screens are for medical purposes. For confirmation use CHRISTINE Confirmation Add on Menu in CPRS. Ordering Provid er: RENATOJESSEJON ELLINGTON Report Released Date/Time: Sep 17, 2022 02:57 PM Reporting Lab: [facility] [place] [facility] [address] [facility] [address] Performing Lab: [facility] [address] [facility] [address] ETG SCREEN (wx) SCREEN POS H Negative Oct 02, 2022 [place] [facility] [place] ALCOHOL, ETHYL URINE Specimen T ype: URINE 12:28 PM [place] [facility] PANEL Comment: Urine with Cr [...] Sep 17, 2022 02:57 PM Reporting Lab: [facility] [address] [facility] [address] Performing Lab: [facility] [address] [facility] [address] ALCOHOL, ETHYL URINE NONE-DETECTED NONE- DETECTED, cutoff = 10 mg/dL PH, CHRISTINE 5.6 4-10 CREATININE, CHRISTINE 67.17 >20 SP.GRAVITY, CHRISTINE 1.012 1.003-1.020 Oct 02, 2022 [place] [facility] [place] AMPHETAMINES SCREEN Specimen Ty pe: URINE [...] Sep 17, 2022 02:57 PM Reporting Lab: [facility] [place] [facility] [address] [facility] [address] Performing Lab: [facility] [address] [facility] [address] AMPHETAMINES SCREEN NONE-DETECTED None-D etected, Cutoff = 1000 ng/mL PH, CHRISTINE 5.6 4-10 CREATININE, CHRISTINE 67.17 >20 SP.GRAVITY, CHRISTINE 1.012 1.003-1.020 Oct 02, 2022 [place] [employer] WSTRN FENTANYL SCREEN Specimen Type: URINE 12:28 PM [facility] PANEL Comment: Urine with Cr <5 [...] Sep 17, 2022 02:57 PM Reporting Lab: [facility] [address] [facility] [address] Performing Lab: [facility] [address] [facility] [address] FENTANYL SCREEN NONE-DETECTED Negative: Cutoff = 1.00 ng/mL PH, CHRISTINE 5.6 4-10 CREATININE, CHRISTINE 66.53 >20 SP.GRAVITY, CHRISTINE 1.012 1.003-1.020 Oct 02, 2022 [facility] BENZODIAZEPINES SCREEN Specimen Type: URINE 12:28 PM [facility] PANEL Comment: Urine with Cr [...] Sep 17, 2022 02:57 PM Reporting Lab: [facility] [address] [facility] [address] Performing Lab: [address] [address] BENZODIAZEPINES SCREEN NONE-DETECTED Non e-Detected, Cutoff = 200 ng/mL PH, CHRISTINE 5.6 4-10 CREATININE, CHRISTINE 67.17 >20 SP.GRAVITY, CHRISTINE 1.012 1.003-1.020 Oct 02, 2022 [facility] BUPRENORPHINE SCREEN Specimen T ype: URINE 12:28 PM [facility] PANEL Comment: Urine with Cr <5 is [...] Sep 17, 2022 02:57 PM Reporting Lab: [facility] [address] [facility] [address] Performing Lab: [facility] [address] [facility] [address] BUPRENORPHINE (URINE) NONE-DETECTED None Detected, Cutoff = 10.0 ng/mL PH, CHRISTINE 5.6 4-10 CREATININE, CHRISTINE 67.17 >20 SP.GRAVITY, CHRISTINE 1.012 1.003-1.020 Oct 02, 2022 [facility] COCAINE SCREEN Specimen Type: URINE 12:28 PM [place] [facility] PANEL Comment: Urine with Cr [...] Sep 17, 2022 02:57 PM Reporting Lab: [facility] TravelTriangleUSETS [facility] [address] [facility] [address] Performing Lab: [place] [employer] [facility] FACTORYGALION COMMUNITY HOSPITALSkyeraUSEPepperdata [address] [address] COCAINE SCREEN NONE-DETECTED None-Detect ed,Cutoff = 300 ng/mL PH, CHRISTINE 5.6 4-10 CREATININE, CHRISTINE 67.17 >20 SP.GRAVITY, CHRISTINE 1.012 1.003-1.020 Oct 02, 2022 [place] [employer] TechnologiesRL WSTRN OPIATES SCREEN Specimen Type: URINE 12:28 PM [place] [facility] PANEL Comment: Urine with Cr [...] Sep 17, 2022 02:57 PM Reporting Lab: [facility] [address] [facility] [address] Performing Lab: [facility] [address] [facility] [address] OPIATES SCREEN NONE-DETECTED None-Detect ed, Cutoff = 300 ng/mL PH, CHRISTINE 5.6 4-10 CREATININE, CHRISTINE 67.17 >20 SP.GRAVITY, CHRISTINE 1.012 1.003-1.020 Oct 02, 2022 [facility] OXYCODONE SCREEN Specimen Type: URINE 12:28 PM [place] [facility] PANEL Comment: Urine with Cr [...] Sep 17, 2022 02:57 PM Reporting Lab: [facility] [address] [facility] [address] Performing Lab: [facility] [address] [facility] [address] OXYCODONE SCREEN POSITIVE HH None-Detected , Cutoff = 100 ng/mL PH, CHRISTINE 5.6 4-10 CREATININE, CHRISTINE 67.17 >20 SP.GRAVITY, CHRISTINE 1.012 1.003-1.020 Oct 02, 2022 [facility] CANNABINOIDS SCREEN Specimen Ty pe: URINE 12:28 PM [place] [facility] PANEL Comment: Urine with Cr [...] Sep 17, 2022 02:57 PM Reporting Lab: [address] [address] Performing Lab: [address] [address] CANNABINOIDS SCREEN NONE-DETECTED None-D etected,Cutoff = 50 ng/mL PH, CHRISTINE 5.6 4-10 CREATININE, CHRISTINE 67.17 >20 SP.GRAVITY, CHRISTINE 1.012 1.003-1.020 Oct 02, 2022 12:21 [facility] PT & INR (COUMADIN) Specimen Type: PLASMA PM [facility] No comment enter ed. Ordering Provid er: MAT TAMAYO Report Released Date/Time: Sep 10, 2022 03:46 PM Reporting Lab: [address] [address] Performing Lab: [address] [address] INR 3.3 PROTIME 38.2 H 10.0-13.1 Social History: Smoking Status (Most current) and Tobacco Use (All prior to encounter date) This section includes the most current, and the historical, smoking and tobacco-related health factors from the [place] facility where the Encounter took place.Current Smoking Status This section includes the most current smoking, or tobacco-related health factor, from the [place] facility where the Encounter took place. Date/Time Current Smoking Status Comment Facility Apr 30, 2022 01:00 PM VA-TOBACCO FORMER USER [facility] Tobacco Use History This section includes a history of the smoking, or tobacco- related health factors, that were collected on or before the date of the Encounter. The data comes from the [place] facility where the Encounter took place. Date/Time Smoking Status/Tobacco Comment Facility Use Apr 30, 2022 01:00 VA-TOBACCO QUIT 15 YRS OR [facility] PM [place] [facility] Mar 20, 2021 01:00 VA-TOBACCO FORMER USER [facility] Mar 20, 2021 01:00 VA-TOBACCO QUIT 15 YRS OR [facility] PM [place] [facility] January 17, 2020 11:33 VA-TOBACCO FORMER USER [facility] January 17, 2020 11:33 VA-TOBACCO QUIT 15 YRS OR [facility] AM [place] [facility] Nov 23, 2018 01:22 VA-TOBACCO FORMER [facility]ER [facility] Nov [facility], 2018 01:22 VA-TOBACCO QUIT 15 YRS OR [facility] PM [facility] January 18, 2018 12:53 QUIT TOBACCO USE 1-7 [facility] W[facility]N PM YEARS AGO PT STATES HE STOPP 4 [facility] Dec 09, 2016 01:07 QUIT TOBACCO USE > 7 [facility] PM YEARS AGO [facility] Nov 11, 2015 01:13 QUIT TOBACCO USE > 7 [facility] PM YEARS AGO [facility] Nov 19, 2004 03:17 HISTORY OF SMOKING [facility] PM quit 30 yrs ago [facility] Aug 10, 2003 01:03 HISTORY OF SMOKING [facility] Apr 12, 2002 02:36 QUIT TOBACCO USE > 7 [facility] PM YEARS AGO [facility]
--- OUTSIDE RECORDS SUMMARY | 2022-11-03 06:00 | XMS_ITS | Encounter Summary ---
:1945 Author Organization [facility] rs Address [address] [place] [address] Support Name Relationship Address Phone EJ SCHULTE Unavailable [address] [place] [address] EJ SCHULTE Unavailable [address] [place] [address] Insurance Providers: All historical and current Section [...] Name to Policy Number Spann WILVER PRESCRIPT [facility] Aug 23, [id number] [phone] POLY NIELSON,J PATIENT ION 2015 7 3 JUSTIN GEHA FEHB PREFERRED MANUEL Aug 23, [id number] [phone] Bertha RICHARDSON PATIENT PROVIDER AL 2012 ALTH 7 136 JUSTIN ORGANIZAT GOV ION (PPO) GEHA FEHB PREFERRED GEHA Aug 23, [id number] [phone] AKUA LIZETT,J PATIENT PROVIDER DAVID 2012 2 7 136 JUSTIN ORGANIZAT CTION ION (PPO) DENT MEDICARE MEDICARE PART Sep 23, PART A [id number] Bertha FENG PATIENT (WNR) (M) A 2010 2 JUSTIN MEDICARE MEDICARE PART Sep 23, PART B [id number] Bertha FENG PATIENT (WNR) (M) B 2010 2 JUSTIN Selected Encounter This section includes the information on record at [facility] for the Encounter. Date/Time Encounter Type Encounter Reason Provider Source Description Oct 29, 2022 HC PRO PHONE TELEPHONE/ANCILLA ICD-10-CM Z51.81 Aracely JUAN HRISTI 01:14 PM CALL 5-10 MIN RY Encounter for NE F therapeutic drug level monitoring with Provider Comments: Therapeutic Drug Level Monitoring IHE Encounter Template Text not used by [facility] Assessments - Encounter Diagnoses This section includes the primary and secondary diagnoses documented for the Encounter. 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) [facility] (6[facility]GE[facility] anticoagulants Oct 29, 2022 SECONDARY Presence of other HELEN JUNA [facility] 01:14 PM heart-valve [facility] (631GE) replacement Plan [...] 2022 12:10 PM [facility] [place] [facility] Nov 12, 2022 12:45 PM [facility] [place] [facility] December 23, 2022 01:30 PM [facility] [place] [facility] December 28, 2022 01:30 PM [facility] - [facility] [place] [facility] Apr 29, 2023 02:00 PM [facility] [place] [facility] Apr 29, 2023 03:00 PM [facility] Active, Pending, and Scheduled Orders This section includes a listing of several types of active, pending, and scheduled orders, including clinic medications orders, diagnostic test orders, procedure orders and consult orders; where the start date of the order is 45 days before the date of the Encounter or 45 days after the date of the Encounter. The data comes from all [facility] treatment facilities. Test Date/Time Test Type Test Details Facility Name Oct 15, 2022 12:00 AM Laboratory - Chemistry PT & INR (COUMADIN) [facility] Order BLOOD (BLUE-PLASMA) [facility] SP ONCE Oct 29, 2022 12:00 [...] Reference Range Comment Oct 02, 2022 12:28 [facility] E[facility] S[facility] (wx) Specimen Typ e: URINE PM [place] Comment: CHRISTINE te st are qualitative, any L or H flags only indicate a [facility] alert was sent. This ETG test was developed and its performance characteristics determined by [facility] clinical lab. The [place] Food and Cipriano g Administration has not approved or cleared this test, FDA clearance or approval is not currently required for clinical use. ETG cutoff 500 ng/mL CHRISTINE Screens are for medical purposes. For confirmation use CHRISTINE Confirmation Add on Menu in CPRS. Ordering Provid er: BOYD GROSS Report Released Date/Time: Sep 17, 2022 02:57 PM Reporting Lab: [facility] [place] [address] [facility] [address] Performing Lab: [facility] [address] [facility] [address] ETG SCREEN (wx) SCREEN POS H Negative Oct 02, 2022 12:28 [facility] METHADONE SCREEN Specimen Ty pe: URINE PM [facility] Comment: CHRISTINE te st are qualitative, any L or H flags only indicate a [facility] alert was sent. Ordering Provid er: BOYD GROSS Report Released Date/Time: Sep 17, 2022 02:57 PM Reporting Lab: [facility] [address] [facility] [address] Performing Lab: [facility] [address] [facility] [address] METHADONE SCREEN None detected(Negative) L Negative Oct 02, 2022 [facility] ALCOHOL, ETHYL URINE Specimen T ype: URINE 12:28 PM [facility] PANEL Comment: Urine with Cr <5 [...] Sep 17, 2022 02:57 PM Reporting Lab: [facility] [address] [facility] [address] Performing Lab: [facility] [address] [facility] [address] ALCOHOL, ETHYL URINE NONE-DETECTED NONE- DETECTED, cutoff = 10 mg/dL PH, CHRISTINE 5.6 4-10 CREATININE, CHRISTINE 67.17 >20 SP.GRAVITY, CHRISTINE 1.012 1.003-1.020 Oct 02, 2022 [facility] AMPHETAMINES SCREEN Specimen Ty pe: URINE 12:28 PM [facility] PANEL Comment: Urine with Cr <5 [...] Sep 17, 2022 02:57 PM Reporting Lab: [address] [address] Performing Lab: [address] [address] AMPHETAMINES SCREEN NONE-DETECTED None-D etected, Cutoff = 1000 ng/mL PH, CHRISTINE 5.6 4-10 CREATININE, CHRISTINE 67.17 >20 SP.GRAVITY, CHRISTINE 1.012 1.003-1.020 Oct 02, 2022 [facility] W[facility]N FENTANYL SCREEN Specimen Type: URINE 12:28 PM [place] PANEL Comment: Urine with Cr <5 [...] Sep 17, 2022 02:57 PM Reporting Lab: [address] [address] Performing Lab: [address] [address] FENTANYL SCREEN NONE-DETECTED Negative: Cutoff = 1.00 ng/mL PH, CHRISTINE 5.6 4-10 CREATININE, CHRISTINE 66.53 >20 SP.GRAVITY, CHRISTINE 1.012 1.003-1.020 Oct 02, 2022 [facility] WSTRN BENZODIAZEPINES SCREEN Specimen Type: URINE 12:28 PM [facility] PANEL Comment: Urine with Cr <5 [...] Sep 17, 2022 02:57 PM Reporting Lab: [address] [address] Performing Lab: [address] [address] BENZODIAZEPINES SCREEN NONE-DETECTED Non e-Detected, Cutoff = 200 ng/mL PH, CHRISTINE 5.6 4-10 CREATININE, CHRISTINE 67.17 >20 SP.GRAVITY, CHRISTINE 1.012 1.003-1.020 Oct 02, 2022 [facility] BUPRENORPHINE SCREEN Specimen T ype: URINE 12:28 PM [employer] [facility] PANEL Comment: Urine with Cr <5 [...] Sep 17, 2022 02:57 PM Reporting Lab: [address] [address] Performing Lab: [address] [address] BUPRENORPHINE (URINE) NONE-DETECTED None Detected, Cutoff = 10.0 ng/mL PH, CHRISTINE 5.6 4-10 CREATININE, CHRISTINE 67.17 >20 SP.GRAVITY, CHRISTINE 1.012 1.003-1.020 Oct 02, 2022 [facility] CANNABINOIDS SCREEN Specimen Ty pe: URINE 12:28 PM Cabe na Mala [facility] PANEL Comment: Urine with Cr <5 [...] Sep 17, 2022 02:57 PM Reporting Lab: [facility] [address] [facility] [address] Performing Lab: [facility] [address] [facility] [address] CANNABINOIDS SCREEN NONE-DETECTED None-D etected,Cutoff = 50 ng/mL PH, CHRISTINE 5.6 4-10 CREATININE, CHRISTINE 67.17 >20 SP.GRAVITY, CHRISTINE 1.012 1.003-1.020 Oct 02, 2022 [facility] [employer] WSTRN COCAINE SCREEN Specimen Type: URINE 12:28 PM [employer] [facility] PANEL Comment: Urine with Cr <5 [...] Sep 17, 2022 02:57 PM Reporting Lab: [address] [address] Performing Lab: [facility] [address] [facility] [address] COCAINE SCREEN NONE-DETECTED None-Detect ed,Cutoff = 300 ng/mL PH, CHRISTINE 5.6 4-10 CREATININE, CHRISTINE 67.17 >20 SP.GRAVITY, CHRISTINE 1.012 1.003-1.020 Oct 02, 2022 [facility] [employer] W[facility]N OPIATES SCREEN Specimen Type: URINE 12:28 PM [employer] [facility] PANEL Comment: Urine with Cr <5 [...] 02:57 PM Reporting Lab: [facility] WSTRN [facility]ENTER[facility]ETS [facility] [address] [facility] [address] Performing Lab: [facility] [address] [facility] [address] OPIATES SCREEN NONE-DETECTED None-Detect ed, Cutoff = 300 ng/mL PH, CHRISTINE 5.6 4-10 CREATININE, CHRISTINE 67.17 >20 SP.GRAVITY, CHRISTINE 1.012 1.003-1.020 Oct 02, 2022 [facility]OSPITALTRN OXYCODONE SCREEN Specimen Type: URINE 12:28 PM [facility] PANEL Comment: Urine with Cr <5 [...] Sep 17, 2022 02:57 PM Reporting Lab: [facility]ENTER[facility] [address] [facility] [address] Performing Lab: [facility]ITALTRN [facility] CENTERUSETS [facility] [address] [facility] [address] OXYCODONE SCREEN POSITIVE HH None-Detected , Cutoff = 100 ng/mL PH, CHRISTINE 5.6 4-10 CREATININE, CHRISTINE 67.17 >20 SP.GRAVITY, CHRISTINE 1.012 1.003-1.020 Oct 02, 2022 12:21 [facility]N PT & INR (COUMADIN) Specimen Type: PLASMA PM [facility] No comment enter ed. Ordering Provid er: MAT TAMAYO Report Released Date/Time: Sep 10, 2022 03:46 PM Reporting Lab: [facility]ITAL[facility] [address]Deid[address] [facility] [address] Performing Lab: [facility] [address] [facility] [address] INR 3.3 PROTIME 38.2 H 10.0-13.1 Encounter Notes: All associated encounter notes This section contains the clinical notes associated to the Encounter. Date/Time Encounter Note(s) Provider Source Oct 29, 2022 01:14 PHARMACY MEDICATION MGT NOTE: DANIELLA JUAN [facility] LOCAL TITLE: PHARMACY ANTICOAGULATION NOTE (631GE) STANDARD TITLE: PHARMACY MEDICATION MGT NOTE DATE OF NOTE: OCT 29, 2022@13:14 ENTRY DATE: OCT 29, 2022@13:14:27 AUTHOR: EDWIN JUAN EXP COSIGNER: URGENCY: STATUS: COMPLETED REFERRED TO CLINIC ON: 06/14/07 PRIMARY CARE PHYSICIAN: Dr. James SHABAZZ INFORMATION: OTHER CONTACT INFORMATION: PATIENT'S PHONE #: [phone] 's cell (rajat l first; ok LVM) [phone] pt's cell; ok LVM [phone] home - can speak w/ Ej per pt's verbal authorization CLINIC LOCATION: [facility] COUMADIN THERAPY INITIATED ON: 1992 PLANNED [...] 0 0 0 5 7.5 5 1.3 10/29/22 [facility] 5 7.5 5 7.5 0 0 7.5* 1.7 *spoke with pt and Cat SHABAZZ* CORRECT DOSE: took dose as prescribed on bridge schedule with booster day after surgery MISSED DOSES: held warfarin prior to procedure o n 10/23/22 as instructed, resumed 10/24 as approved by provider BLEEDING: bruising around enox injection site (c ounseled) NEW EVENTS: none PROCEDURES: had shoulder surgery 10/23/22 MED CHANGES: Pt still taking oxycodone/APAP (12/23 25mg tablet 2-3x/day prn) and separate APAP (500mg BID prn) for shoulder pain ; denies other medication changes DIET CHANGES: limited vit K intake EtOH: no EtOH since surgery, prev: ~1-2 beers a day or less TOBACCO: denies use TABLETS: warfarin filled x 90 days on 10/02/22; ludy morales has enough enoxaparin, noted rx'd 20 syr 10/13 and 10 syr OTHER: takes dose in PM [facility] Ref Lab closer to his home (has privat e insurance): OFFICE INFORMATION [address] [place] [address] Office TABLET STRENGTH: 5mg ASSESSMENT: INR is subtherapeutic at 1.7 (goal 2-3) after resuming warfarin x5 doses PLAN: [facility] informed pt and clinic of of pt's INR result from today. Instructed [facility] and pt via telephone to have pt take warfari n 7.5mg tonight then have INR checked tomorrow to assess if enoxaparin can be d/c'd prior to the weekend. Return to clinic: Oct - [facility] enoxaparin Time spent with patient: 6 minutes EDUCATION Provided with verbal instructions: Yes Provided with written instructions: No Barriers to learning: No Readiness to learn: Yes Specific dose directions reviewed: Yes Opportunity for questions/discussion: Yes Reports understanding of instructions: Yes Further learning needs: No Provided patient education on the following: Dos e An INR was performed by a lab outside the [facility]. Documentation of INR done outside this [facility]: INR Result: 1.7 Date COLLECTED: October 29, 2022 Location: Outside Healthcare Provider [facility] Outside INR results received via point of c are. INR 1.51-1.79: Not Therapeutic Subtherapeutic. Patient was counseled on the si gns and symptoms of clotting and instructed to present to the Emergency Depa rtment should any of these be noticed. /yeimy/ EDWIN JUAN PharmD, [facility] Clinical Inspector Tool Signed: 10/29/2022 14:28 Receipt Acknowledged By: 10/29/2022 14:30 /yeimy/ ZAK BOWER CPHT Clinical Application Designer
--- OUTSIDE RECORDS SUMMARY | 2022-11-03 06:00 | XMS_ITS | Encounter Summary ---
:1945 Author Organization [facility] rs Address [address] [place] [id number] Support Name Relationship Address Phone EJ SCHULTE Unavailable [address] [place] [address] EJ SCHULTE Unavailable [address] [place] [address] Insurance Providers: All historical and current Section [...] WILVER MESSERT [facility] Aug 23, [id number] [phone] POLY NIELSON,J PATIENT ION 2015 7 3 JUSTIN GEHA FEHB PREFERRED [facility] Aug 23, [id number] [phone] Bertha RICHARDSON PATIENT PROVIDER AL 2012 ALTH 7 136 JUSTIN ORGANIZAT GOV ION (PPO) GEHA FEHB PREFERRED GEHA Aug 23, [id number] [phone] AKUA LIZETT,J PATIENT PROVIDER DAVID 2012 2 7 136 JUSTIN ORGANIZAT CTION ION (PPO) DENT MEDICARE MEDICARE PART Sep 23, PART A [id number] Bertha FENG PATIENT (WNR) (M) A 2010 [id number] 2 JUSTIN MEDICARE MEDICARE PART Sep 23, PART B [id number] Bertha FENG PATIENT (WNR) (M) B 2010 MJ08 2 JUSTIN Selected Encounter This section includes the information on record at OR for the Encounter. Date/Time Encounter Type Encounter Description Reason Provider Source Oct 29, 2022 12:00 Outpatient Encounter EVENT (HISTORICAL) [...] The data comes from all OR treatment [facility]. Appointment Date/Time Appointment Type Appointment Facili ty Name Nov 02, 2022 12:10 [facility] Nov 12, 2022 12:45 [facility] [place] [facility] December 23, 2022 01:30 [facility] [place] [facility] December 28, 2022 01:30 PM AMBULATORY - PSYCHIATRY [facility] [place] [facility] Apr 29, 2023 02:00 PM [facility] [place] [facility] Apr 29, 2023 03:00 PM [facility] Active, Pending, and Scheduled Orders This section includes a listing of several types of active, pending, and scheduled orders, including clinic medications orders, diagnostic test orders, procedure orders and consult orders; where the start date of the order is 45 days before the date of the Encounter or 45 days after the date of the Encounter. The data comes from all [facility]. Test Date/Time Test Type Test Details Facility Name Oct 15, 2022 12:00 AM Laboratory - Chemistry PT & INR (COUMADIN) [facility] Order BLOOD (BLUE-PLASMA) [facility] SP ONCE Oct 29, 2022 12:00 AM Laboratory - Chemistry PT & INR (COUMADIN) [facility] Order BLOOD (BLUE-PLASMA) (631GE) SP ONCE Nov 02, 2022 12:00 AM Laboratory - Chemistry PT & INR (COUMADIN) [facility] Order BLOOD (BLUE-PLASMA) (631GE) SP ONCE [...] Reference Range Comment Oct 02, 2022 12:28 [facility] CNTRL WSTRN METHADONE SCREEN Specimen Ty pe: URINE PM [place] [facility] Comment: CHRISTINE te st are qualitative, any L or H flags only indicate a [facility] alert was sent. Ordering Provid er: RENATOJESSEJON ELLINGTON Report Released Date/Time: Sep 17, 2022 02:57 PM Reporting Lab: [facility] [place] [place] [facility] [address] [address] Performing Lab: [facility] [address] [facility] [facility] [address] METHADONE SCREEN None detected(Negative) L Negative Oct 02, 2022 12:28 [facility] ETG S[facility]EN (wx) Specimen Typ e: URINE PM [place] [facility] Comment: CHRISTINE te st are qualitative, any L or H flags only indicate a [facility] alert was sent. This ETG test was developed and its performance characteristics determined by [place] clinical lab. The [place] Food and Cipriano g Administration has not approved or cleared this test, FDA clearance or approval is not currently required for clinical use. ETG cutoff 500 ng/mL CHRISTINE Screens are for medical purposes. For confirmation use CHRISTINE Confirmation Add on Menu in CPRS. Ordering Provid er: RNEATOJESSEJON ELLINGTON Report Released Date/Time: Sep 17, 2022 02:57 PM Reporting Lab: [facility] [place] [facility] [address] [address] Performing Lab: [facility] [place] [facility] [address] [facility] [facility] [address] ETG SCREEN (wx) SCREEN POS H Negative Oct 02, 2022 [facility] CNTR WSTRN AMPHETAMINES SCREEN Specimen Ty pe: URINE 12:28 PM [place] [facility] PANEL Comment: Urine with Cr [...] Sep 17, 2022 02:57 PM Reporting Lab: [place] [facility] [place] [facility] [address] [address] Performing Lab: [facility] [address] [address] AMPHETAMINES SCREEN NONE-DETECTED None-D etected, Cutoff = 1000 ng/mL PH, CHRISTINE 5.6 4-10 CREATININE, CHRISTINE 67.17 >20 SP.GRAVITY, CHRISTINE 1.012 1.003-1.020 Oct 02, [address] [facility] ALCOHOL, ETHYL URINE Specimen T ype: URINE 12:28 PM [place] [facility] PANEL Comment: Urine with Cr [...] 17, 2022 02:57 PM Reporting Lab: [facility] [place] [facility] [address] [address] Performing Lab: [facility] [address] [address] ALCOHOL, ETHYL URINE NONE-DETECTED NONE- DETECTED, cutoff = 10 mg/dL PH, CHRISTINE 5.6 4-10 CREATININE, CHRISTINE 67.17 >20 SP.GRAVITY, CHRISTINE 1.012 1.003-1.020 Oct 02, 2022 [facility] FENTANYL SCREEN Specimen Type: URINE 12:28 PM [place] [facility] PANEL Comment: Urine with Cr [...] Sep 17, 2022 02:57 PM Reporting Lab: [facility] [address] [address] Performing Lab: [facility] [address] [address] FENTANYL SCREEN NONE-DETECTED Negative: Cutoff = 1.00 ng/mL PH, CHRISTINE 5.6 4-10 CREATININE, CRHISTINE 66.53 >20 SP.GRAVITY, CHRISTINE 1.012 1.003-1.020 Oct 02, 2022 [facility] BENZODIAZEPINES SCREEN Specimen Type: URINE 12:28 PM [place] [facility] PANEL Comment: Urine with Cr [...] Sep 17, 2022 02:57 PM Reporting Lab: [facility] [address] [address] Performing Lab: [place] [facility] [address] BENZODIAZEPINES SCREEN NONE-DETECTED Non e-Detected, Cutoff = 200 ng/mL PH, CHRISTINE 5.6 4-10 CREATININE, CHRISTINE 67.17 >20 SP.GRAVITY, CHRISTINE 1.012 1.003-1.020 Oct 02, 2022 [facility] BUPRENORPHINE SCREEN Specimen T ype: URINE 12:28 PM [facility] PANEL Comment: Urine with Cr [...] Sep 17, 2022 02:57 PM Reporting Lab: [facility] [address] [address] Performing Lab: [facility] [address] [address] BUPRENORPHINE (URINE) NONE-DETECTED None Detected, Cutoff = 10.0 ng/mL PH, CHRISTINE 5.6 4-10 CREATININE, CHRISTINE 67.17 >20 SP.GRAVITY, CHRISTINE 1.012 1.003-1.020 Oct 02, 2022 [facility] COCAINE SCREEN Specimen Type: URINE 12:28 PM [place] [facility] PANEL Comment: Urine with Cr [...] Sep 17, 2022 02:57 PM Reporting Lab: [facility] [address] [address] Performing Lab: [facility] [address] [address] COCAINE SCREEN NONE-DETECTED None-Detect ed,Cutoff = 300 ng/mL PH, CHRISTINE 5.6 4-10 CREATININE, CHRISTINE 67.17 >20 SP.GRAVITY, CHRISTINE 1.012 1.003-1.020 Oct 02, 2022 [facility] WSTRN OPIATES SCREEN Specimen Type: URINE 12:28 PM [place] [facility] PANEL Comment: Urine with Cr [...] Sep 17, 2022 02:57 PM Reporting Lab: [facility] [address] Performing Lab: [address] [address] OPIATES SCREEN NONE-DETECTED None-Detect ed, Cutoff = 300 ng/mL PH, CHRISTINE 5.6 4-10 CREATININE, CHRISTINE 67.17 >20 SP.GRAVITY, CRHISTINE 1.012 1.003-1.020 Oct 02, 2022 [facility] OXYCODONE SCREEN Specimen Type: URINE 12:28 PM [place] [facility] PANEL Comment: Urine with Cr <5 is diluted or substituted. Cr between 5 and 20 is very dilute. Urine with SG of 1.001 or less is diluted or substituted. SG of 1.003 or less is very dilute. Urine with a p H <3 or >11 has been adulterated and is unsuitable for testing by our current method. Urine with pH between 3 and 4 OR 10 and 11 may have been adulterated. Ordering Provid er: BOYD GROSS Report Released Date/Time: Sep 17, 2022 02:57 PM Reporting Lab: [facility] RootlessUSE[address] [address] Performing Lab: [address] [address] OXYCODONE SCREEN POSITIVE HH None-Detected , Cutoff = 100 ng/mL PH, CHRISTINE 5.6 4-10 CREATININE, CHRISTINE 67.17 >20 SP.GRAVITY, CHRISTINE 1.012 1.003-1.020 Oct 02, 2022 [facility] CANNABINOIDS SCREEN Specimen Ty pe: URINE 12:28 PM [place] [facility] PANEL Comment: Urine with Cr [...] 2022 02:57 PM Reporting Lab: [facility] [address] Performing Lab: [facility] [address] CANNABINOIDS SCREEN NONE-DETECTED None-D etected,Cutoff = 50 ng/mL PH, CHRISTINE 5.6 4-10 CREATININE, CHRISTINE 67.17 >20 SP.GRAVITY, CHRISTINE 1.012 1.003-1.020 Oct 02, 2022 12:21 [facility] CNTR WSTRN PT & INR (COUMADIN) Specimen Type: PLASMA PM [place] [facility] No comment enter ed. Ordering Provid er: MAT TAMAYO Report Released Date/Time: Sep 10, 2022 03:46 PM Reporting Lab: [facility] [place] [address] [address] Performing Lab: [facility]PITALUSE[address] [address] INR 3.3 PROTIME 38.2 H 10.0-13.1 Social [...] FOR[facility]ER [facility] [place] [facility] Tobacco Use History This section includes a history of the smoking, or tobacco- related health factors, that were collected on or before the date of the Encounter. The data comes from the [place] facility where the Encounter took place. Date/Time Smoking Status/Tobacco Comment Facility Use Apr 30, 2022 01:00 VA-TOBACCO QUIT 15 YRS OR [facility] PM [place] [facility] Mar 20, 2021 01:00 VA-TOBACCO FORMER USER [facility] PM [place] [facility] Mar 20, 2021 01:00 VA-TOBACCO QUIT 15 YRS OR [facility] PM [place] [facility] January 17, 2020 11:33 VA-TOBACCO FORMER USER [facility] AM [place] [facility] January 17, 2020 11:33 VA-TOBACCO QUIT 15 YRS OR [facility] AM [place] [facility] Nov 23, 2018 01:22 VA-TOBACCO FORMER USER [facility] PM [place] [facility] Nov 23, 2018 01:22 VA-TOBACCO QUIT 15 YRS OR [facility] [place] [facility] January 18, 2018 12:53 QUIT TOBACCO USE 1-7 [facility] PM YEARS AGO PT STATES HE STOPP 4 YR AGO [place] [facility] Dec 09, 2016 01:07 QUIT TOBACCO USE > 7 [facility] [place] A[place] [facility] Nov 11, 2015 01:13 QUIT TOBACCO USE > 7 [facility] [place] A[place] [facility] Nov 19, 2004 03:17 HISTORY OF SMOKING [facility] PM quit 30 yrs ago [place] [facility] Aug 10, 2003 01:03 HISTORY OF SMOKING [facility] PM [place] [facility] Apr 12, 2002 02:36 QUIT TOBACCO USE > 7 [facility] PM [facility] A[facility]
--- OUTSIDE RECORDS SUMMARY | 2022-11-03 06:01 | XMS_ITS | Encounter Summary ---
:1945 Author Organization [facility] Address [address] [place] [id number] Support Name Relationship Address Phone EJ SCHULTE Unavailable [address] [place] [address] EJ SCHULTE Unavailable [address] [place] [address] Insurance Providers: All historical and current Section [...] Name to Policy Number Spann WILVER [facility] Aug 23, [id number] [phone] POLY NIELSON,J PATIENT ION 2015 7 3 JUSTIN GEHA FEHB PREFERRED [facility] Aug 23, [id number] [phone] Bertha RICHARDSON PATIENT PROVIDER AL 2012 ALTH 7 136 JUSTIN ORGANIZAT GOV ION (PPO) GEHA FEHB PREFERRED GEHA Aug 23, [id number] [phone] AKUA LIZETT,J PATIENT PROVIDER DAVID 2012 2 7 136 JUSTIN ORGANIZAT CTION ION (PPO) DENT MEDICARE MEDICARE PART Sep 23, PART B [id number] Bertha FENG PATIENT (WNR) (M) B 2010 [id number] JUSTIN MEDICARE MEDICARE PART Sep 23, PART A [id number] Bertha FENG PATIENT (WNR) (M) A 2010 [id number] 2 JUSTIN Selected Encounter This section includes the information on record at CO for the Encounter. Date/Time Encounter Type Encounter Description Reason Provider Source Oct 30, 2022 12:00 Outpatient Encounter EVENT (HISTORICAL) AM IHE Encounter Template Text not used by CO Plan of Treatment: Future Appointments (+ 6 [...] The data comes from all [place] treatment [facility]. Appointment Date/Time Appointment Type Appointment Facili ty Name Nov 02, 2022 12:10 PM [facility]ULAT[facility] Nov 12, 2022 12:[address] [facility] [facility] [place] [facility] December 23, 2022 01:30 PM [facility] [place] [facility] December 28, 2022 01:30 PM AMBULATORY - PSYCHIATRY [facility] [place] [facility] Apr 29, 2023 02:00 PM [facility] [place] [facility] Apr 29, 2023 03:[address] [facility] Active, Pending, and Scheduled Orders This section includes a listing of several types of active, pending, and scheduled orders, including clinic medications orders, diagnostic test orders, procedure orders and consult orders; where the start date of the order is 45 days before the date of the Encounter or 45 days after the date of the Encounter. The data comes from all [facility] Test Date/Time Test Type Test Details Facility Name Oct 15, 2022 12:00 AM Laboratory - Chemistry PT & INR (COUMADIN) [facility] Order BLOOD (BLUE-PLASMA) [facility] SP ONCE Oct 29, 2022 12:00 AM Laboratory - Chemistry PT & INR (COUMADIN) [facility] Order BLOOD (BLUE-PLASMA) (631GE) SP ONCE Nov 02, 2022 12:00 AM Laboratory - Chemistry PT & INR (COUMADIN) [facility] Order BLOOD (BLUE-PLASMA) (631GE) SP ONCE [...] Reference Range Comment Oct 02, 2022 12:28 [facility] ETG SCREEN (wx) Specimen Typ e: URINE PM [place] [facility] Comment: CHRISTINE te st are qualitative, any L or H flags only indicate a VA alert was sent. This ETG test was developed and its performance characteristics determined by [place] clinical lab. The [place] Food and Cipriano g Administration has not approved or cleared this test, FDA clearance or approval is not currently required for clinical use. ETG cutoff 500 ng/mL CHRISTINE Screens are for medical purposes. For confirmation use CHRISTINE Confirmation Add on Menu in CPRS. Ordering Provid er: BOYD GROSS Report Released Date/Time: Sep 17, 2022 02:57 PM Reporting Lab: [place] [facility] [place] [facility] [address] [facility] [address] Performing Lab : [facility] [place] [facility] [address] [facility] [address] ETG SCREEN (wx) SCREEN POS H Negative Oct 02, 2022 12:28 [facility] METHADONE SCREEN Specimen Ty pe: URINE PM [place] [facility] Comment: CHRISTINE te st are qualitative, any L or H flags only indicate a VA alert was sent. Ordering Provid er: BOYD GROSS Report Released Date/Time: Sep 17, 2022 02:57 PM Reporting Lab: [facility] [place] [facility] [address] [facility] [address] Performing Lab: [facility] [place] [facility] [address] [facility] [address] METHADONE SCREEN None detected(Negative) L Negative Oct 02, 2022 [facility] AMPHETAMINES SCREEN Specimen Ty pe: URINE 12:28 PM [place] [facility] PANEL Comment: Urine with Cr [...] Sep 17, 2022 02:57 PM Reporting Lab: [facility] Time [facility] [place] [facility] [address] [facility] [address] Performing Lab: [facility] [address] [facility] [address] AMPHETAMINES SCREEN NONE-DETECTED None-D etected, Cutoff = 1000 ng/mL PH, CHRISTINE 5.6 4-10 CREATININE, CHRISTINE 67.17 >20 SP.GRAVITY, CHRISTINE 1.012 1.003-1.020 Oct 02, 2022 [place] Time [facility]ITALTRN ALCOHOL, ETHYL URINE Specimen T ype: URINE 12:28 PM [place] [facility] PANEL Comment: Urine with Cr [...] Sep 17, 2022 02:57 PM Reporting Lab: [facility] [place] [facility] [address] [facility] [address] Performing Lab: [facility] [address] [facility] [address] ALCOHOL, ETHYL URINE NONE-DETECTED NONE- DETECTED, cutoff = 10 mg/dL PH, CHRISTINE 5.6 4-10 CREATININE, CHRISTINE 67.17 >20 SP.GRAVITY, CHRISTINE 1.012 1.003-1.020 Oct 02, 2022 [facility] FENTANYL SCREEN Specimen Type: URINE 12:28 PM [place] [facility] PANEL Comment: Urine with Cr [...] Sep 17, 2022 02:57 PM Reporting Lab: [facility] [address] [facility] [address] Performing Lab: [facility] [address] [facility] [address] FENTANYL SCREEN NONE-DETECTED Negative: Cutoff = 1.00 ng/mL PH, CHRISTINE 5.6 4-10 CREATININE, CHRISTINE 66.53 >20 SP.GRAVITY, CHRISTINE 1.012 1.003-1.020 Oct 02, 2022 [facility] BENZODIAZEPINES SCREEN Specimen Type: URINE 12:28 PM Play2Focus[place] [facility] PANEL Comment: Urine with Cr [...] Sep 17, 2022 02:57 PM Reporting Lab: [facility] [address] [facility] [address] Performing Lab: [place] Time Warden[address] [address] BENZODIAZEPINES SCREEN NONE-DETECTED Non e-Detected, Cutoff = 200 ng/mL PH, CHRISTINE 5.6 4-10 CREATININE, CHRISTINE 67.17 >20 SP.GRAVITY, CHRISTINE 1.012 1.003-1.020 Oct 02, 2022 [facility] BUPRENORPHINE SCREEN Specimen T ype: URINE 12:28 PM [facility] [facility] PANEL Comment: Urine with Cr <5 [...] Sep 17, 2022 02:57 PM Reporting Lab: [address] [address] Performing Lab: [address] [address] BUPRENORPHINE (URINE) NONE-DETECTED None Detected, Cutoff = 10.0 ng/mL PH, CHRISTINE 5.6 4-10 CREATININE, CHRISTINE 67.17 >20 SP.GRAVITY, CHRISTINE 1.012 1.003-1.020 Oct 02, 2022 [facility] CANNABINOIDS SCREEN Specimen Ty pe: URINE 12:28 PM [facility] [facility] PANEL Comment: Urine with Cr <5 [...] Sep 17, 2022 02:57 PM Reporting Lab: [address] [address] Performing Lab: [address] [address] CANNABINOIDS SCREEN NONE-DETECTED None-D etected,Cutoff = 50 ng/mL PH, CHRISTINE 5.6 4-10 CREATININE, CHRISTINE 67.17 >20 SP.GRAVITY, CHRISTINE 1.012 1.003-1.020 Oct 02, 2022 CO Time WardenR WSTRN COCAINE SCREEN Specimen Type: URINE 12:28 PM [place] [facility] PANEL Comment: Urine with Cr [...] Sep 17, 2022 02:57 PM Reporting Lab: [facility] [address] [facility] [address] Performing Lab: [facility]24[facility] [address] [facility] [address] COCAINE SCREEN NONE-DETECTED None-Detect ed,Cutoff = 300 ng/mL PH, CHRISTINE 5.6 4-10 CREATININE, CHRISTINE 67.17 >20 SP.GRAVITY, CHRISTINE 1.012 1.003-1.020 Oct 02, 2022 [place] Time Warden BookacoachTRN OXYCODONE SCREEN Specimen Type: URINE 12:28 PM [place] [facility] PANEL Comment: Urine with Cr [...] 2022 02:57 PM Reporting Lab: [facility] BookacoachCLEVEL[facility]IN[facility]ON HOSPITALJigsaw24[facility] [address] [facility] [address] Performing Lab: [facility]ITALUSE[facility] [address] [facility] [address] OXYCODONE SCREEN POSITIVE HH None-Detected , Cutoff = 100 ng/mL PH, CHRISTINE 5.6 4-10 CREATININE, CHRISTINE 67.17 >20 SP.GRAVITY, CHRISTINE 1.012 1.003-1.020 Oct 02, 2022 [facility] WSTRN OPIATES SCREEN Specimen Type: URINE 12:28 PM [place] [facility] PANEL Comment: Urine with Cr [...] Sep 17, 2022 02:57 PM Reporting Lab: [facility] [address] [facility] [address] Performing Lab: [facility]ITALUSE[facility] [address] [facility] [address] OPIATES SCREEN NONE-DETECTED None-Detect ed, Cutoff = 300 ng/mL PH, CHRISTINE 5.6 4-10 CREATININE, CHRISTINE 67.17 >20 SP.GRAVITY, CHRISTINE 1.012 1.003-1.020 Oct 02, 2022 12:[facility] ([facility]IN[facility] Specimen Type: PLASMA PM [place] [facility] No comment enter ed. Ordering Provid er: MAT TAMAYO Report Released Date/Time: Sep 10, 2022 03:46 PM Reporting Lab: [facility] [address] [facility] [address] Performing Lab: [facility]ITALUSE[facility] [address] [facility] [address] INR 3.3 PROTIME 38.2 H 10.0-13.1 Social History: Smoking Status (Most current) and Tobacco Use (All prior to encounter date) This section includes the most current, and the historical, smoking and tobacco-related health factors from the CO facility where the Encounter took place.Current Smoking Status This section includes the most current smoking, or tobacco-related health factor, from the CO facility where the Encounter took place. Date/Time Current Smoking Status Comment Facility Apr 30, 2022 01:00 PM VA-TOBACCO FORMER USER [facility] [place] [facility] Tobacco Use History This section includes a history of the smoking, or tobacco- related health factors, that were collected on or before the date of the Encounter. The data comes from the [place] facility where the Encounter took place. Date/Time Smoking Status/Tobacco Comment Facility Use Apr 30, 2022 01:00 VA-TOBACCO QUIT 15 YRS OR [facility] PM MORE [place] [facility] Mar 20, 2021 01:00 VA-TOBACCO FORMER USER [facility] PM [place] [facility] Mar 20, 2021 01:00 VA-TOBACCO QUIT 15 YRS OR [facility] PM MORE [place] [facility] January 17, 2020 11:33 VA-TOBACCO FORMER USER [facility] AM [place] [facility] January 17, 2020 11:33 VA-TOBACCO QUIT 15 YRS OR [facility] AM MORE [place] [facility] Nov 23, 2018 01:22 VA-TOBACCO FORMER USER [facility] PM [place] [facility] Nov 23, 2018 01:22 VA-TOBACCO QUIT 15 YRS OR [facility] PM [place] [facility] January 18, 2018 12:53 QUIT TOBACCO USE 1-7 [facility] PM YEARS AGO PT STATES HE STOPP 4 YR AGO [place] [facility] Dec 09, 2016 01:07 QUIT TOBACCO USE > 7 [facility] PM YEARS AGO [place] [facility] Nov 11, 2015 01:13 QUIT TOBACCO USE > 7 [facility] Nov 19, 2004 03:17 HISTORY OF SMOKING [facility] PM quit 30 yrs ago [place] [facility] Aug 10, 2003 01:03 HISTORY OF SMOKING [facility] [place] [facility] Apr 12, 2002 02:36 QUIT TOBACCO USE > 7 [facility] PM YEARS AGO [facility]
--- OUTSIDE RECORDS SUMMARY | 2022-11-03 06:01 | XMS_ITS | Encounter Summary ---
:1945 Author Organization [facility] rs Address [address] [place] [address] Support Name Relationship Address Phone EJ SCHULTE Unavailable [address] [facility] [place] [address] EJ SCHULTE Unavailable [address] [place] [address] Insurance Providers: All historical and current Section [...] Name to Policy Number Spann WILVER PRESCRIPT [facility] Aug 23, [id number] [phone] POLY NIELSON,J PATIENT ION 2015 7 3 JUSTIN GEHA FEHB PREFERRED MANUEL Aug 23, [id number] [phone] Bertha RICHARDSON PATIENT PROVIDER AL 2012 ALTH 7 136 JUSTIN ORGANIZAT GOV ION (PPO) GEHA FEHB PREFERRED GEHA Aug 23, [id number] [phone] AKUA LIZETT,J PATIENT PROVIDER DAVID 2012 2 7 136 JUSTIN ORGANIZAT CTION ION (PPO) DENT MEDICARE MEDICARE PART Sep 23, PART A [id number] Bertha FENG PATIENT (WNR) (M) A 2010 2 JUSTIN MEDICARE MEDICARE PART Sep 23, PART B [id number] Bertha FENG PATIENT (WNR) (M) B 2010 2 JUSTIN Selected Encounter This section includes the information on record at [place] for the Encounter. Date/Time Encounter Type Encounter Reason Provider Source Description Oct 30, 2022 HC PRO PHONE TELEPHONE/ANCILLA ICD-10-CM Z51.81 Aracely JUAN HRISTI 12:21 PM CALL 5-10 MIN RY Encounter for NE F therapeutic drug level monitoring with Provider Comments: Therapeutic Drug Level Monitoring IHE Encounter Template Text not used by [facility] Assessments - Encounter Diagnoses This section includes the primary and secondary diagnoses documented for the Encounter. 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 This section includes future appointments and future orders which are active, pending orscheduled.Future Appointments This section includes appointments that were scheduled to occur 6 months from the date of the Encounter, up to a maximum of 20 appointments. The data comes from all [place] treatment facilities. Appointment Date/Time Appointment Type Appointment Facili ty Name Nov 02, 2022 12:10 PM [facility] [place] [facility] Nov 12, 2022 12:45 PM [facility] [place] [facility] December 23, 2022 01:30 PM [facility]UL[facility] [place] [facility] December 28, 2022 01:30 PM [facility] [place] [facility] Apr 29, 2023 02:00 PM [facility] [place] [facility] Apr 29, 2023 03:00 PM [facility] Active, Pending, and Scheduled Orders This section includes a listing of several types of active, pending, and scheduled orders, including clinic medications orders, diagnostic test orders, procedure orders and consult orders; where the start date of the order is 45 days before the date of the Encounter or 45 days after the date of the Encounter. The data comes from all [place] treatment facilities. Test Date/Time Test Type Test Details Facility Name Oct 15, 2022 12:00 AM Laboratory - Chemistry PT & INR (COUMADIN) [facility] Order BLOOD (BLUE-PLASMA) [facility] SP ONCE Oct 29, 2022 12:00 AM Laboratory - Chemistry PT & INR (COUMADIN) [facility] Order BLOOD (BLUE-PLASMA) (631GE) SP ONCE Nov 02, 2022 12:00 AM Laboratory - Chemistry PT & INR (COUMADIN) [facility] Order BLOOD (BLUE-PLASMA) (631GE) SP ONCE Lab [...] Reference Range Comment Oct 02, 2022 12:28 [facility] (wx) Specimen Typ e: [facility]INE [facility] Comment: CHRISTINE te st are qualitative, any [...] Sep 17, 2022 02:57 PM Reporting Lab: [facility] [address] [facility] [address] Performing Lab: [facility] [address] [facility] [address] ETG SCREEN (wx) SCREEN POS H Negative Oct 02, 2022 12:28 [facility] METHADONE SCREEN Specimen Ty pe: URINE PM [facility] Comment: CHRISTINE te st are qualitative, any L or H flags only indicate a VA alert was sent. Ordering Provid er: BOYD GROSS Report Released Date/Time: Sep 17, 2022 02:57 PM Reporting Lab: [facility] [address] [facility] [address] Performing Lab: [facility] [address] [facility] [address] METHADONE SCREEN None detected(Negative) L Negative Oct 02, 2022 [facility] FENTANYL SCREEN Specimen Type: URINE 12:28 PM [facility] PANEL Comment: Urine with Cr <5 [...] Sep 17, 2022 02:57 PM Reporting Lab: [facility] [address] [facility] [address] Performing Lab: [facility] [address] [facility] [address] FENTANYL SCREEN NONE-DETECTED Negative: Cutoff = 1.00 ng/mL PH, CHRISTINE 5.6 4-10 CREATININE, CHRISTINE 66.53 >20 SP.GRAVITY, CHRISTINE 1.012 1.003-1.020 Oct 02, 2022 [facility] AMPHETAMINES SCREEN Specimen Ty pe: URINE 12:28 PM [facility] PANEL Comment: Urine with Cr <5 [...] Sep 17, 2022 02:57 PM Reporting Lab: [address] [address] Performing Lab: [address] [address] AMPHETAMINES SCREEN NONE-DETECTED None-D etected, Cutoff = 1000 ng/mL PH, CHRISTINE 5.6 4-10 CREATININE, CHRISTINE 67.17 >20 SP.GRAVITY, CHRISTINE 1.012 1.003-1.020 Oct 02, 2022 [facility] ALCOHOL, ETHYL URINE Specimen T ype: URINE 12:28 PM [facility] PANEL Comment: Urine with Cr <5 [...] Sep 17, 2022 02:57 PM Reporting Lab: [address] [address] Performing Lab: [address] [address] ALCOHOL, ETHYL URINE NONE-DETECTED NONE- DETECTED, cutoff = 10 mg/dL PH, CHRISTINE 5.6 4-10 CREATININE, CHRISTINE 67.17 >20 SP.GRAVITY, CHRISTINE 1.012 1.003-1.020 Oct 02, 2022 [place] [facility] BUPRENORPHINE SCREEN Specimen T ype: URINE 12:28 PM [facility] PANEL Comment: Urine with Cr <5 [...] Sep 17, 2022 02:57 PM Reporting Lab: [address] [address] Performing Lab: [address] [address] BUPRENORPHINE (URINE) NONE-DETECTED None Detected, Cutoff = 10.0 ng/mL PH, CHRISTINE 5.6 4-10 CREATININE, CHRISTINE 67.17 >20 SP.GRAVITY, CHRISTINE 1.012 1.003-1.020 Oct 02, 2022 [facility] BENZODIAZEPINES SCREEN Specimen Type: URINE 12:28 PM Cold Plasma Medical TechnologiesUSETS [employer] PANEL Comment: Urine with Cr <5 is [...] Sep 17, 2022 02:57 PM Reporting Lab: [address] [address] Performing Lab: [address] [address] BENZODIAZEPINES SCREEN NONE-DETECTED Non e-Detected, Cutoff = 200 ng/mL PH, CHRISTINE 5.6 4-10 CREATININE, CHRISTINE 67.17 >20 SP.GRAVITY, CHRISTINE 1.012 1.003-1.020 Oct 02, 2022 [facility] CANNABINOIDS SCREEN Specimen Ty pe: URINE 12:28 PM [facility] Plasma Medical TechnologiesUSETS [employer] PANEL Comment: Urine with Cr <5 is [...] Sep 17, 2022 02:57 PM Reporting Lab: [facility] [address] [facility] [address] Performing Lab: [facility] [address] [facility] [address] CANNABINOIDS SCREEN NONE-DETECTED None-D etected,Cutoff = 50 ng/mL PH, CHRISTINE 5.6 4-10 CREATININE, CHRISTINE 67.17 >20 SP.GRAVITY, CHRISTINE 1.012 1.003-1.020 Oct 02, 2022 [place] ISE CorporationRL WSTRN COCAINE SCREEN Specimen Type: URINE 12:28 PM Health Outcomes SciencesTS [facility] PANEL Comment: Urine with Cr <5 [...] Sep 17, 2022 02:57 PM Reporting Lab: [facility] [address] [facility] [address] Performing Lab: [facility] [address] [facility] [address] COCAINE SCREEN NONE-DETECTED None-Detect ed,Cutoff = 300 ng/mL PH, CHRISTINE 5.6 4-10 CREATININE, CHRISTINE 67.17 >20 SP.GRAVITY, CHRISTINE 1.012 1.003-1.020 Oct 02, 2022 [place] [employer] SYSTRANTRN OXYCODONE SCREEN Specimen Type: URINE 12:[address] [employer] [facility] PANEL Comment: Urine with Cr <5 [...] Sep 17, 2022 02:57 PM Reporting Lab: [facility] [address] [facility] [address] Performing Lab: [facility] [address] [facility] [address] OXYCODONE SCREEN POSITIVE HH None-Detected , Cutoff = 100 ng/mL PH, CHRISTINE 5.6 4-10 CREATININE, CHRISTINE 67.17 >20 SP.GRAVITY, CHRISTINE 1.012 1.003-1.020 Oct 02, 2022 [facility] OPIATES SCREEN Specimen Type: URINE 12:28 PM [facility] PANEL Comment: Urine with Cr <5 [...] Sep 17, 2022 02:57 PM Reporting Lab: [facility] [address] [facility] [address] Performing Lab: [facility] [address] [facility] [address] OPIATES SCREEN NONE-DETECTED None-Detect ed, Cutoff = 300 ng/mL PH, CHRISTINE 5.6 4-10 CREATININE, CHRISTINE 67.17 >20 SP.GRAVITY, CHRISTINE 1.012 1.003-1.020 Oct 02, 2022 12:21 [facility] PT & INR (COUMADIN) Specimen Type: PLASMA PM [facility] No comment enter ed. Ordering Provid er: MAT TAMAYO Report Released Date/Time: Sep 10, 2022 03:46 PM Reporting Lab: [facility]ITALMary [address] [facility] [address] Performing Lab: [facility]ITAL[facility] [address] [facility] [address] INR 3.3 PROTIME 38.2 H 10.0-13.1 Encounter Notes: All associated encounter notes This section contains the clinical notes associated to the Encounter. Date/Time Encounter Note(s) Provider Source Oct 30, 2022 12:21 PHARMACY MEDICATION MGT NOTE: DANIELLA JUAN [facility] LOCAL TITLE: PHARMACY ANTICOAGULATION NOTE (631GE) STANDARD TITLE: PHARMACY MEDICATION MGT NOTE DATE OF NOTE: OCT 30, 2022@12:21 ENTRY DATE: OCT 30, 2022@12:21:09 AUTHOR: EDWIN JUAN EXP COSIGNER: URGENCY: STATUS: COMPLETED REFERRED TO CLINIC ON: 06/14/07 PRIMARY CARE PHYSICIAN: Dr. James SHABAZZ INFORMATION: OTHER CONTACT INFORMATION: PATIENT'S PHONE #: [phone] 's cell (rajat l first; ok LVM) [phone] pt's cell; ok LVM [phone] home - can speak w/ Ej per pt's verbal authorization CLINIC LOCATION: [facility] COUMADIN THERAPY INITIATED ON: 1992 PLANNED DURATION OF THERAPY: lifetime ESTIMATED STOP DATE: n/a INDICATION FOR COUMADIN: St See's valve GOAL INR: 2-3 (goal changed 09/29/13) RELEVANT HISTORY: DRUG INTERACTIONS: ASA, citalopram, lansoprazole , APAP, co Q10 Last CBC: 06/11/22 Last PCP appt: 06/25/22 RECENT DOSING HISTORY (dose in mg): DATE Wed SAT INR 04/28/22 7.5 5 7.5 5 7.5 5 [...] 7.5 5 7.5 0 0 7.5* 1.7 10/30/22 [facility] 7.5 1.8 resume 42.5mg/week *spoke with pt and VNA, Bonnie ([phone])* CORRECT DOSE: yes MISSED DOSES: held warfarin prior to procedure [...] 10 syr OTHER[facility] Ref Lab closer to his home (has privat e insurance): OFFICE INFORMATION [address] [place] [address] Office TABLET STRENGTH: 5mg ASSESSMENT: INR is subtherapeutic at 1.8 (goal 2 -3) booster dose yesterday likely not fully reflected PLAN: [facility]NA informed pt and clinic of of pt's INR result from today. Instructed VNA and pt via telephone to have pt take warfari n 5mg tonight (had 7.5mg last night) then resume previous therapeutic maintenance dose of 42.5mg/week taking 5mg daily except 7.5mg Mon/Wed/Wed. Cont inue enoxaparin until INR therapeutic. Will repeat have [facility]NA INR on 11/03/22 as pt states he has appts on Wednesday (not at [facility]) and cannot stop at [facility] or non-VA lab to have INR drawn. Reviewed s/sx clinically significant bleeding given extended f ollow up interval. Return to clinic: Oct - [facility]NA enoxaparin Time spent with patient: 5 minutes EDUCATION Provided with verbal instructions: Yes Provided with written instructions: No Barriers to learning: No Readiness to learn: Yes Specific dose directions reviewed: Yes Opportunity for questions/discussion: Yes Reports understanding of instructions: Yes Further learning needs: No Provided patient education o n the following: Signs of over-anticoagulation, What to do in case of bleeding, Dose An INR was performed by a lab outside the [place]. Documentation of INR done outside this [facility]: INR Result: 1.8 Date COLLECTED: October 30, 2022 Location: Outside Healthcare Provider [facility]NA Outside INR results received via point of c are. INR 1.80-1.99: Not Therapeutic Subtherapeutic. Patient was counseled on the si gns and symptoms of clotting and instructed to present to the Emergency Depa rtment should any of these be noticed. /yeimy/ EDWIN JUAN PharmD, BCGP Clinical Election Clerk Signed: 10/30/2022 12:31 Receipt Acknowledged By: 10/30/2022 12:32 /yeimy/ ZAK BOWER CPHT Clinical Hand Singer
--- OUTSIDE RECORDS SUMMARY | 2022-11-03 06:02 | XMS_ITS | Encounter Summary ---
:1945 Author Organization [facility] rs Address [address] [place] [address] Support Name Relationship Address Phone EJ SCHULTE Unavailable [address] [place] [address] EJ SCHULTE Unavailable [address] [place] [address] Insurance Providers: All historical and current Section [...] Name to Policy Number Spann WILVER MESSERT [facility] Aug 23, [id number] [phone] POLY ON,J PATIENT ION 2015 7 3 JUSTIN GEHA FEHB PREFERRED [facility] Aug 23, [id number] [phone] Bertha RICHARDSON PATIENT PROVIDER AL 2012 ALTH 7 136 JUSTIN ORGANIZAT GOV ION (PPO) GEHA FEHB PREFERRED GEHA Aug 23, [id number] [phone] AKUA KARLOSON,J PATIENT PROVIDER DAVID 2012 2 7 136 JUSTIN ORGANIZAT CTION ION (PPO) DENT MEDICARE MEDICARE PART Sep 23, PART A [id number] Bertha FENG PATIENT (WNR) (M) A [id number] 2 JUSTIN MEDICARE MEDICARE PART Sep 23, PART B [id number] Bertha FENG PATIENT (WNR) (M) B 2010 [id number] JUSTIN Selected Encounter This section includes the information on record at [facility] for the Encounter. Date/Time Encounter Type Encounter Reason Provider Source Description Nov 02, 2022 HC PRO PHONE TELEPHONE/ANCILLA ICD-10-CM Z51.81 AALIYAH CHOWDHURY 03:56 PM CALL 11-20 MIN RY Encounter for therapeutic drug level monitoring with Provider Comments: Therapeutic Drug Level Monitoring IHE Encounter Template Text not used by [facility] Assessments - Encounter Diagnoses This section includes the primary and secondary diagnoses documented for the Encounter. 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) MARQUES CHOWDHURY [facility] 03:56 PM use of [place] [facility] anticoagulants Nov 02, 2022 SECONDARY Presence of other MARQUES CHOWDHURY [facility] 03:56 PM heart-valve [place] [facility] replacement Plan of [...] Appointment Type Appointment Facili ty Name Nov 12, 2022 12:45 PM [facility] [place] [facility] December 23, 2022 01:30 PM AMBULATORY - MEDICINE [facility] [place] [facility] December 28, 2022 01:30 PM [facility] [place] [facility] Apr 29, 2023 02:00 PM AMBULATORY MEDICINE [facility] [place] [facility] Apr 29, 2023 03:00 PM AMBULATORY MEDIC[facility] [place] [facility] Active, Pending, and Scheduled Orders This section [...] Laboratory - Chemistry PT & INR (COUMADIN) [facility] Order BLOOD (BLUE-PLASMA) [place] [facility] SP ONCE Oct 29, 2022 12:00 AM Laboratory - Chemistry PT & INR (COUMADIN) [facility] Order BLOOD (BLUE-PLASMA) (631GE) SP ONCE Nov 02, 2022 12:00 AM Laboratory - Chemistry PT & INR (COUMADIN) [facility] Order BLOOD (BLUE-PLASMA) (631GE) SP ONCE Social History: Smoking Status (Most current) and [...] 30, 2022 01:00 PM VA-TOBACCO FORMER USER [facility] [place] [facility] Tobacco Use History This section [...] YEARS AGO [place] [facility] Nov 11, 2015 01:13 QUIT TOBACCO USE > 7 [facility] PM YEARS AGO [place] [facility] Nov 19, 2004 03:17 HISTORY OF SMOKING [facility] PM quit 30 yrs ago [place] [facility] Aug 10, 2003 01:03 HISTORY OF SMOKING [facility] PM [place] [facility] Apr 12, 2002 02:36 QUIT TOBACCO USE > 7 [facility] Encounter Notes: All associated encounter notes This section contains the clinical notes associated to the Encounter. Date/Time Encounter Note(s) Provider Source Nov 02, 2022 03:56 PM PHARMACY MEDICATION MGT NOTE: MARQUES CHOWDHURY [facility] LOCAL TITLE: PHARMACY ANTICOAGULATION NOTE [facility] STANDARD TITLE: PHARMACY MEDICATION MGT NOTE DATE OF NOTE: NOV 02, 2022@15:56 ENTRY DATE: NOV 02, 2022@15:56:26 AUTHOR: MARQUES CHOWDHURY EXP COSIGNER: URGENCY: STATUS: COMPLETED REFERRED TO CLINIC ON: 06/14/07 PRIMARY CARE PHYSICIAN: Dr. James SHABAZZ INFORMATION: OTHER CONTACT INFORMATION: PATIENT'S PHONE #: [phone] 's cell (rajat [employer]; ok [place]) [phone] pt's cell; [facility] [phone] home - can speak w/ Ej per pt's verbal authorization CLINIC LOCATION: [facility] COUMADIN THERAPY INITIATED ON: 1992 [...] 1.7 10/30/22 [facility] 7.5 1.8 resume 42.5mg/week 11/02/22 [facility] 5 7.5 5 2.8 *spoke with pt's and left voice message [facility] Elva SHABAZZ ([phone])* CORRECT DOSE: yes MISSED DOSES: held warfarin prior to procedure o n 10/23/22 as instructed, resumed 10/24 as approved by provider BLEEDING: May have a hematoma in his chest, H/H today: 6.6/20.2 bruising around enox injection sites NEW EVENTS: none PROCEDURES: had shoulder surgery 10/23/22 MED CHANGES: Pt still taking oxycodone/APAP (12/23 25mg tablet 2-3x/day prn) and separate APAP (500mg BID prn) for shoulder pain ; also taking Miralax DIET CHANGES: poor appetite, limited vit K intak e EtOH: no EtOH since surgery, prev: ~1-2 beers a day or less TOBACCO: denies use TABLETS: warfarin filled x 90 days on 10/02/22; ludy morales has enough enoxaparin, noted rx'd 20 syr 10/13 and 10 syr OTHER: takes dose in PM [facility] Ref Lab closer to his home (has privat e insurance): OFFICE INFORMATION [address] [place] [address] Office TABLET STRENGTH: 5mg ASSESSMENT: INR is therapeutic at 2.8 (goal 2-3) PLAN: [facility] informed pt and clinic of of pt's INR result from today. Instructed VNA and pt's via telephone and voice messag e to have pt continue maintenance dose of 42.5mg/week taking 5mg daily except 7.5mg Mon/Wed/Fri. Patient's advised to discontinue enoxaparin at this time. VNA is scheduled to repeat INR on 11/03/22, [facility] a winter storm may impair VNA's ability to see patient and therefore INR m ay be drawn on 11/04 or 11/05 instead. Will alert PCP to non-VA H/H or 6.6/20.2 . Per patient's , the patient will not have a transfusion, per surgeon. Patient has close [facility]NA follow up at this time. Return to clinic: Oct Time spent with patient: 15 minutes EDUCATION Provided with verbal instructions: Yes Provided with written instructions: Barriers to learning: No Readiness to learn: Yes Specific dose directions reviewed: Yes Opportunity for questions/discussion: Yes Reports understanding of instructions: Yes Further learning needs: No Provided patient education on the following: What to do in case of bleeding An INR was performed by a lab [facility] the [facility]. Documentation of INR done outside this [facility]: INR Result: 2.8 Date COLLECTED: November 02, 2022 Location: Outside Healthcare Provider These results were verified by reviewing a copy of the outside laboratory report. INR 2.00-3.00: Therapeutic /yeimy/ MARQUES CHOWDHURY PHARM.D., CACP STAFF CLINICAL PHARMACIST Signed: 11/02/2022 16:52 Receipt Acknowledged By: * AWAITING SIGNATURE * BOYD GROSS * AWAITING SIGNATURE * ZAK BOWER
--- OUTSIDE RECORDS SUMMARY | 2022-11-03 06:02 | XMS_ITS | Continuity of Care Document ---
:1945 Author Organization [facility] Address [address] [place] [address]- Care Team Providers Name Role Phone Zach PARKS, Jai Primary Care Physician Encounter [facility] Date(s): 04/03/20 - 04/03/[address] [address]- [facility] Discharge Disposition: A-D/C Home Attending Physician: Jonah Montoya MD Admitting Physician: Jonah Montoya MD Referring Physician: Jonah Montoya MD Allergies, Adverse Reactions, Alerts No Known Medication Allergies Medications Ambien 10 mg oral tablet 1 tablet = 10 mg, By Mouth, Daily at bedtime, 0 Refills, Maintenance, 12/24/15 11:24:17 Start Date: 12/24/15 Status: Orderedaspirin 81 mg oral tablet 1 tablet = 81 mg, By Mouth, Daily, 0 Refills, Maintenance, 03/24/16 11:47:42 Start Date: 03/24/16 Status: Orderedbisoprolol 5 mg oral tablet 1 tablet = 5 mg, By Mouth, 2 times a day, 0 Refills, Maintenance, 03/29/20 12:30:00 EDT Start Date: 03/29/20 Status: OrderedCeleXA 10 mg oral tablet 10 mg, 1, tablet, By Mouth, Daily at bedtime, Refills 0, Maintenance, 12/24/15 11:20:40 EDT Start Date: 12/24/15 Status: OrderedClaritin 24 Hour Allergy = 10 mg, By Mouth, PRN Congestion, 0 Refills, Maintenance, 08/10/16 13:36:17 EST Start Date: 08/10/16 Status: OrderedCoumadin 5 mg oral tablet See Instructions, 1 tablet By Mouth DAILY EXCEPT ON WEDNESDAY 7.5 MG, 0 Refills, Maintenance, 12/24/15 11:20:27 EDT, Tablet Start Date: 12/24/15 Status: OrderedDigoxin = 0.25 mg, By Mouth, Daily at bedtime, 0 Refills, Maintenance, 03/29/20 12:33:00 EDT Start Date: 03/29/20 Status: OrderedMiscellaneous Rx eye drops for glaucoma, 0 Refills, Maintenance, 03/29/20 14:02:00 EDT Start Date: 03/29/20 Status: OrderedMotrin IB 200 mg oral capsule 1 capsule OR 2 TAB, By Mouth, Every 6 hours, PRN as needed for arthritis, 0 Refills, Maintenance, 03/29/20 12:36:00 EDT Start Date: 03/29/20 Status: OrderedoxyCODONE 5 mg oral tablet 10 mg, 2, tablet, By Mouth, Every 6 hours, PRN, for 5 days, # 30 tablet, Refills 0, Tot. Refills 0, Acute 04/08/20 7:27:00 EDT, for pain, 04/03/20 7:27:00 EDT, Route to Pharmacy Electronically, [id number], Partial fill upon patient request, 1... Start Date: 04/03/20 Stop Date: 04/08/20 Status: Orderedpravastatin 40 mg oral tablet 1 tablet = 40 mg, By Mouth, Daily at bedtime, # 90 tablet, 3 Refills, Maintenance, 03/24/16 12:27:16, Tablet Start Date: 03/24/16 Status: OrderedPrevacid = 30 mg, By Mouth, Daily, PRN HEART BURN, 0 Refills, Maintenance, 12/24/15 11:23:45 EDT Start Date: 12/24/15 Status: Orderedtamsulosin 0.4 mg oral capsule 0.4 mg, 1, capsule, By Mouth, Daily at bedtime, Refills 0, Maintenance, 12/24/15 11:23:23 EDT Start Date: 12/24/15 Status: Orderedvalsartan 40 mg oral tablet 40 mg, 1, tablet, By Mouth, Daily at bedtime, # 30 tablet, Refills 11, Tot. Refills 11, Maintenance,09/04/16 14:28:00, Route to Pharmacy Electronically, [id number], [facility] Start Date: 09/04/16 Status: Ordered Problem List Condition Effective Dates Status Health Status Informant Aneurysm, thoracic aortic(Confirmed) Active CHF (congestive heart Active failure)(Confirmed) Depression(Confirmed) Active Essential hypertension(Confirmed) Active GERD (gastroesophageal reflux Active disease)(Confirmed) H/O aortic valve Active replacement(Confirmed) History of skin cancer(Confirmed) Active History of percutaneous coronary Active intervention(Confirmed) Hyperlipidemia(Confirmed) Active LUCILLE (obstructive sleep Active apnea)(Confirmed) Vital Signs Most recent to oldest 1 2 3 [Reference Range]: Height 184 cm 184 cm (04/03/20 6:51 AM) (03/29/20 1:00 PM) Weight 103 kg 100 kg (04/03/20 6:51 AM) (03/29/20 1:00 PM) Oxygen Saturation [94-100 96 % 94 % 95 % %] (04/03/20 10:15 AM) (04/03/20 10:00 AM) (04/03/20 9 :45 AM) Pulse Rate [55-90 bpm] 78 bpm (04/03/20 6:51 AM) Body Mass Index 30.42 29.54 [18.5-24.99] *>HHI* *H* (04/03/20 6:51 AM) (03/29/20 1:00 PM) Blood Pressure 134/72 mm Hg 134/70 mm Hg 122/65 mm Hg [90-138/55-84 mm Hg] (04/03/20 10:15 AM) (04/03/20 10:00 AM) (04/03 9:45 AM) Respiratory Rate [16-30 16 br/min 30 br/min 17 br/mi n br/min] (04/03/20 10:15 AM) (04/03/20 10:00 AM) (04/03/20 9 :45 AM) Temperature [96.8-100.4 97.9 DegF 98.3 DegF 98.0 Deg F DegF] (04/03/20 10:45 AM) (04/03/20 9:30 AM) (04/03/20 6: 51 AM) Liters per Minute 2 L/min 2 L/min 2 L/min (04/03/20 7:45 AM) (04/03/20 7:30 AM) (04/03/20 7:1 5 AM) Mode of Delivery (Oxygen) Room air Room air Room a ir (04/03/20 10:15 AM) (04/03/20 10:00 AM) (04/03/20 9 :45 AM) Blood pressure sites Arm, right (04/03/20 6:51 AM) Temperature Route Temporal Temporal Temporal (04/03/20 10:45 AM) (04/03/20 9:30 AM) (04/03/20 6: 51 AM) Dry Weight 103 kg 100 kg (04/03/20 6:51 AM) (03/29/20 1:00 PM) Weight Obtained Via Standing scale Patient/family stated (04/03/20 6:51 AM) (03/29/20 1:00 PM) Dry Weight Obtained Via Standing scale Patient/family stated (04/03/20 6:51 AM) (03/29/20 1:00 PM) Social History Social History Type Response Smoking Status Never smoker; Tobacco user i n household: No entered on: 12/24/15 Sex
--- OUTSIDE RECORDS SUMMARY | 2022-11-03 06:02 | XMS_ITS | Encounter Summary ---
:1945 Author Organization [facility] Address [address] [place] [address] Support Name Relationship Address Phone EJ SCHULTE Unavailable [address] [place] [address] EJ SCHULTE Unavailable [address] [place] [address] Insurance Providers: All historical and current Section Date Range: From patient's date of to the date document was created.This section includes the names of all active insurance providers for the patient. Insurance Type of Plan Start of End of Group Member Insurance Policy P atient's Provider Coverage Name Policy Policy Number ID Provider's Spann's Relationship Coverage Coverage Telephone Name to Policy Number Spann [facility] Aug 23, [id number] [phone] POLY NIELSON,J PATIENT ION 2015 7 3 JUSTIN GEHA FEHB PREFERRED MANUEL Aug 23, [id number] [phone] AKUA PHOENIX,Bertha PATIENT PROVIDER AL 2012 ALTH 7 136 JUSTIN ORGANIZAT GOV ION (PPO) GEHA FEHB PREFERRED GEHA Aug 23, [id number] [phone] AKUA LIZETT,J PATIENT PROVIDER DAVID 2012 2 7 136 JUSTIN ORGANIZAT CTION ION (PPO) DENT MEDICARE MEDICARE PART Sep 23, PART A [id number] Bertha FENG PATIENT (WNR) (M) A [id number] 2 JUSTIN MEDICARE MEDICARE PART Sep 23, PART B [id number] SIMBA NBertha PATIENT (WNR) (M) B 2010 [id number] JUSTIN Selected Encounter This section includes the information on record at [place] for the Encounter. Date/Time Encounter Type Encounter Description Reason Provider Source IHE Encounter Template Text not used by [facility]
--- OUTSIDE RECORDS SUMMARY | 2022-11-03 06:02 | XMS_ITS | Encounter Summary ---
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 Aug 23, [id number] [phone] POLY NIELSON,J PATIENT ION 2015 7 3 JUSTIN GEHA FEHB PREFERRED [facility] Aug 23, [id number] [phone] Bertha RICHARDSON PATIENT PROVIDER AL 2012 ALTH 7 136 JUSTIN ORGANIZAT GOV ION (PPO) GEHA FEHB PREFERRED GEHA Aug 23, [id number] [phone] AKUA LIZETT,J PATIENT PROVIDER DAVID 2012 2 7 136 JUSTIN ORGANIZAT CTION ION (PPO) DENT MEDICARE MEDICARE PART Sep 23, PART A [id number] Bertha FENG PATIENT (WNR) (M) A 2010 [id number] 2 JUSTIN MEDICARE MEDICARE PART Sep 23, PART B [id number] Bertha FENG PATIENT (WNR) (M) B 2010 [id number] 2 JUSTIN Selected Encounter This section includes the information on record at [place] for the Encounter. Date/Time Encounter Type Encounter Description Reason Provider Source Nov 02, 2022 12:00 Outpatient Encounter EVENT (HISTORICAL) AM [...] 20 appointments. The data comes from all [facility]. Appointment Date/Time Appointment Type Appointment Facili ty Name Nov 12, 2022 12:45 PM [facility] December 23, 2022 01:30 PM [facility] December 28, 2022 01:30 PM [facility] Apr 29, 2023 02:00 PM [facility] Apr 29, 2023 03:00 PM AMBULATORY MEDICINE [facility] Active, Pending, and Scheduled Orders This [...] comes from all [facility]. Test Date/Time Test Type Test Details Facility Name Oct 15, 2022 12:00 AM Laboratory - Chemistry PT & INR (COUMADIN) [facility] Order BLOOD (BLUE-PLASMA) [facility] SP ONCE Oct 29, 2022 12:00 AM Laboratory - Chemistry PT & INR (COUMADIN) [facility] Order BLOOD (BLUE-PLASMA) (631GE) SP ONCE Nov 02, 2022 12:00 AM Laboratory - Chemistry PT & INR (COUMADIN) [facility] Order BLOOD (BLUE-PLASMA) (631GE) SP ONCE [...] PM VA-TOBACCO [facility] Tobacco Use History This section includes a history of the smoking, or tobacco- related health factors, that were collected on or before the date of the Encounter. The data comes from the [place] facility where the Encounter took place. Date/Time Smoking Status/Tobacco Comment Facility Use Apr 30, 2022 01:00 VA-TOBACCO QUIT 15 YRS OR [facility] PM [facility] [place] [facility] Mar 20, 2021 01:00 VA-TOBACCO FORMER USER [facility] [place] [facility] Mar 20, 2021 01:00 VA-TOBACCO QUIT 15 YRS OR [facility] PM [facility] [place] [facility] January 17, 2020 11:33 VA-TOBACCO FORMER USER [facility] [place] [facility] January 17, 2020 11:33 VA-TOBACCO QUIT 15 YRS OR [facility] AM [facility] [place] [facility] Nov 23, 2018 01:22 VA-TOBACCO FORMER USER [facility] PM [place] [facility] Nov 23, 2018 01:22 VA-TOBACCO QUIT 15 YRS OR [facility] PM [facility] [place] [facility] January 18, 2018 12:53 QUIT TOBACCO USE 1-7 [facility] PM YEARS AGO PT STATES HE STOPP 4 YR AGO [place] [facility] Dec 09, 2016 01:07 QUIT TOBACCO USE > 7 [facility] PM YEARS AGO [place] [facility] Nov 11, 2015 01:13 QUIT TOBACCO USE > 7 [facility] PM YEARS AGO [place] [facility] Nov 19, 2004 03:17 HISTORY OF SMOKING [facility] PM quit 30 yrs ago [place] [facility] Aug 10, 2003 01:03 HISTORY OF SMOKING [facility] PM [place] [facility] Apr 12, 2002 02:36 QUIT TOBACCO USE > 7 [facility] PM YEARS AGO [facility]
[2022-11-03 06:04] LABS: MANUAL DIFF FLAG NO
[2022-11-03 06:06] LABS: Basophils Percent Auto 0.2 % (0-2); Eosinophils Absolute Auto 0.1 X10*3/uL (0.0-0.4); Eosinophils Percent Auto 0.6 % (0-4); Imm Gran Abs Auto 0.16 X10*3/uL (0.00-0.03); Imm Gran Pct Auto 1.2 % (0.0-0.4); Lymphocytes Absolute Auto 0.8 X10*3/uL (1.2-4.9); Lymphocytes Percent Auto 5.8 % (20-40); Mean Corpuscular HGB Conc 33.8 g/dl (31.0-36.0); Mean Corpuscular Hemoglobin 32.4 pg (27.0-33.0); Mean Corpuscular Volume 95.8 fL (80.0-98.0); Mean Platelet Volume 9.6 fL (9.4-12.4); Monocytes Absolute Auto 1.4 X10*3/uL (0.1-1.2); Monocytes Percent Auto 10.3 % (2-11); NRBC Pct Auto 0.1 /100WBC (0.0-0.2); Neutrophils Absolute Auto 11.4 x10*3/uL (2.0-8.3); Neutrophils Percent Auto 81.9 % (45-73); Platelet Count 431 X10*3/uL (160-400); Red Blood Count 2.16 X10*6/uL (4.60-5.80); Red Cell Distribution Width 15.5 % (11.0-16.0); White Blood Count 13.9 X10*3/uL (4.8-10.8)
[2022-11-03 06:11] LABS: Hematocrit 20.7 % (42.0-52.0)
[2022-11-03 06:25] LABS: Anion Gap 13 (12-20); Blood Urea Nitrogen 15 mg/dL (9-16); Carbon Dioxide 24 mmol/L (22-29); Chloride 97 mmol/L (96-108); Creatinine Clr Calc Pharmacy 110.5; Estimated Glomerular Filt Rate > 60; Glucose Random 112 mg/dL (60-115); Potassium 4.3 mmol/L (3.3-5.1); Sodium 130 mmol/L (135-145)
[2022-11-03 06:32] LABS: INTERNATIONAL NORM RATIO 2.7 (0.9-1.1); Prothrombin Time 32.4 SEC (10.0-13.1)
--- NOTE | 2022-11-03 07:26 | PC.NURSE ---
Patient restiong comfortably paced on monitor, bruising andd swelling noted to left shoulder swelling to left hand +CSM noted wound well approximated no drainage noted. Denies SOB or chest pain AOx 4 neuros intact. Will CTM
--- NOTE | 2022-11-03 07:31 | PC.NURSE ---
Spoke with OCTAVIANO Cruz from [facility] about patient status will CTM
--- NOTE | 2022-11-03 08:13 | PC.NURSE ---
Patient tolerating PRBC infusion tolerated PO food and fluids will CTM
--- NOTE | 2022-11-03 08:59 | PC.NURSE ---
LS clear no distress noted patient toleratig IV PRBC will CTM
--- NOTE | 2022-11-03 09:24 | PC.NURSE ---
Patient sleeping no distress noted will CTM
--- NOTE | 2022-11-03 10:37 | PC.NURSE ---
Patient sleeping no distress noted swelling remains same to left shoulder will CTM
[2022-11-03 11:24] LABS: Hematocrit 24.2 % (42.0-52.0); Hemoglobin 8.1 g/dl (14.0-18.0)
[2022-11-03] MEDS: Digoxin 0.125 MG TABLET PO (11:28)
[2022-11-03] MEDS: Valsartan 80 MG TABLET PO (11:28)
--- NOTE | 2022-11-03 11:35 | HO.PM.IMPN ---
Subjective Subjective Date of Service: 11/03/22 Interval History: f/u on transient speech changes ? TIA Interval history: Speech is clear Physical Exam Vital Signs: Vital Signs: Last Vital Signs Temp 98.9 F 11/03/22 10:44 Pulse 70 11/03/22 10:44 Resp 14 11/03/22 10:44 BP 168/69 H 11/03/22 10:44 Pulse Ox 96 11/03/22 10:29 O2 Del Method 11/03/22 10:29 BMI result Body Mass Index 28.5 Const: Other: General: AO X 3, no acute distress Resp: CTA bilateral CVS: S1,S2,RRR GI: +BS, NT, no distention Skin: No large chest wall palpable hematoma with brusing extending to axilla Neuro: motor grossly intact Psych: appropriate affect Objective Data Active Medications Acetaminophen (Acetaminophen 325 Mg Tablet) 650 mg PO Q6H PRN PRN Reason: Pain, Mild (Pain Scale 1-3) Last Admin: 11/03/22 05:51 Dose: 650 mg Documented By: PETER Aspirin (Aspirin Enteric Coated 81 Mg Tablet.) 81 mg PO DAILY [facility] Bisoprolol Fumarate (Bisoprolol Fumarate 5 Mg Tablet) 5 mg PO BID [facility] Digoxin (Digoxin 0.125 Mg Tablet) 0.125 mg PO DAILY [facility] Last Admin: 11/03/22 11:28 Dose: 0.125 mg Documented By: ENID Latanoprost (Latanoprost 0.005 % Ophth Charley 2.5 Ml Drops) 1 drop EYE-BOTH BEDTIME [facility] Melatonin (Melatonin 3 Mg Tablet) 6 mg PO BEDTIME PRN PRN Reason: Insomnia Morphine Sulfate (Morphine Sulfate 4 Mg/Ml Cartridge) 4 mg IVPUSH Q4H PRN; Protocol PRN Reason: Pain, Severe (Pain Scale 7-10) Last Admin: 11/03/22 04:29 Dose: 4 mg Documented By: PETER Non-Formulary Medication (Alirocumab [Praluent Pen]) 150 mg SUBCUT Q14D [facility] Omeprazole (Omeprazole 20 Mg Capsule.) 20 mg PO DAILY@0630 [facility] Ondansetron HCl (Ondansetron Hcl 4 Mg/2 Ml Vial) 4 mg IVPUSH Q8H PRN PRN Reason: Nausea and Vomiting Last Admin: 11/03/22 00:25 Dose: 4 mg Documented By: PETER Pharmacy Consult (Consult Rx Perform Med Rec) 1 each MISCELLANE ONCE PRN PRN Reason: Consult order Sodium Chloride (0.9 % Sodium Chloride Flush 3 Ml Syringe) 3 ml IVFLUSH QSHIFT [facility] Last Admin: 11/03/22 07:41 Dose: Not Given Documented By: ENID Non-Admin Reason: IV Running Tamsulosin HCl (Tamsulosin Hcl 0.4 Mg Capsule) 0.4 mg PO DAILY JENNIFER Valsartan (Valsartan 80 Mg Tablet) 80 mg PO DAILY [facility]; Protocol Last Admin: 11/03/22 11:28 Dose: 80 mg Documented By: ENID Labs 11/03/22 11:18 11/03/22 05:26 Labs: Laboratory Results - last 24 hr 11/02/22 11/02/22 11/02/22 21:00 21:00 21:00 MCV 97.0 MCH 31.8 MCHC 32.8 RDW 15.3 Plt Count 440 H MPV 9.2 L Immature Gran % (Auto) 1.3 H Neut % (Auto) 82.5 H Lymph % (Auto) 7.1 L [place] % (Auto) 8.7 Eos % (Auto) 0.3 Baso % (Auto) 0.1 Lymph # (Auto) 1.0 L [place] # (Auto) 1.3 H Eos # (Auto) 0.1 Baso # (Auto) 0.0 Abs Immat Gran (auto) 0.19 H Absolute Neuts (auto) 12.1 H Absolute Nucleated RBC 0.020 H Nucleated RBC % (auto) 0.1 PT INR Anion Gap 12 Estim Creat Clear Calc 108.9 Estimated GFR > 60 Random Glucose 120 H Calcium 8.2 L Total Bilirubin 2.8 H Direct Bilirubin 1.0 H AST 39 H ALT 20 Alkaline Phosphatase 79 Troponin I High Sens 48.5 H Total Protein 5.6 L Albumin 3.2 L Urine Color Urine Appearance Urine pH Ur Specific [place] Urine Protein Urine Glucose (UA) Urine Ketones Urine Blood Urine Nitrite Ur Leukocyte Esterase Urine RBC Urine WBC Ur Squamous Epith Cells Urine Bacteria Hyaline Casts Stool Occult Blood COVID-19 ([facility]) COVID-19 Clin Com Blood Type Antibody Screen Crossmatch 11/02/22 11/02/22 11/02/22 21:00 21:33 21:33 MCV MCH MCHC RDW Plt Count MPV Immature Gran % (Auto) Neut % (Auto) Lymph % (Auto) [place] % (Auto) Eos % (Auto) Baso % (Auto) Lymph # (Auto) [place] # (Auto) Eos # (Auto) Baso # (Auto) Abs Immat Gran (auto) Absolute Neuts (auto) Absolute Nucleated RBC Nucleated RBC % (auto) PT 41.3 H INR 3.4 H Anion Gap Estim Creat Clear Calc Estimated GFR Random Glucose Calcium Total Bilirubin Direct Bilirubin AST ALT Alkaline Phosphatase Troponin I High Sens Total Protein Albumin Urine Color Urine Appearance Urine pH Ur Specific [place] Urine Protein Urine Glucose (UA) Urine Ketones Urine Blood Urine Nitrite Ur Leukocyte Esterase Urine RBC Urine WBC Ur Squamous Epith Cells Urine Bacteria Hyaline Casts Stool Occult Blood NEGATIVE COVID-19 ([facility]) COVID-Peatix Com Blood Type O Positive Antibody Screen NEGATIVE Crossmatch See Detail 11/02/22 11/03/22 11/03/22 22:43 00:41 05:26 MCV 95.8 MCH 32.4 MCHC 33.8 RDW 15.5 Plt Count 431 H MPV 9.6 Immature Gran % (Auto) 1.2 H Neut % (Auto) 81.9 H Lymph % (Auto) 5.8 L [place] % (Auto) 10.3 Eos % (Auto) 0.6 Baso % (Auto) 0.2 Lymph # (Auto) 0.8 L [place] # (Auto) 1.4 H Eos # (Auto) 0.1 Baso # (Auto) 0.0 Abs Immat Gran (auto) 0.16 H Absolute Neuts (auto) 11.4 H Absolute Nucleated RBC 0.020 H Nucleated RBC % (auto) 0.1 PT INR Anion Gap Estim Creat Clear Calc Estimated GFR Random Glucose Calcium Total Bilirubin Direct Bilirubin AST ALT Alkaline Phosphatase Troponin I High Sens Total Protein Albumin Urine Color Dark Yellow Urine Appearance Clear Urine pH 5.5 Ur Specific [place] 1.025 Urine Protein 30 (1+) H Urine Glucose (UA) Negative Urine Ketones Trace Urine Blood Negative Urine Nitrite Positive H Ur Leukocyte Esterase Trace H Urine RBC 11-20 H Urine WBC 0-5 Ur Squamous Epith Cells 0-2 Urine Bacteria Trace Hyaline Casts 3-5 Stool Occult Blood COVID-19 ([facility]) Negative COVID-Peatix Com See Note Blood Type Antibody Screen Crossmatch 03/14/23 03/14/23 05:26 05:26 MCV MCH MCHC RDW Plt Count MPV Immature Gran % (Auto) Neut % (Auto) Lymph % (Auto) [place] % (Auto) Eos % (Auto) Baso % (Auto) Lymph # (Auto) [place] # (Auto) Eos # (Auto) Baso # (Auto) Abs Immat Gran (auto) Absolute Neuts (auto) Absolute Nucleated RBC Nucleated RBC % (auto) PT 32.4 H INR 2.7 H Anion Gap 13 Estim Creat Clear Calc 110.5 Estimated GFR > 60 Random Glucose 112 Calcium 8.0 L Total Bilirubin Direct Bilirubin AST ALT Alkaline Phosphatase Troponin I High Sens Total Protein Albumin Urine Color Urine Appearance Urine pH Ur Specific [place] Urine Protein Urine Glucose (UA) Urine Ketones Urine Blood Urine Nitrite Ur Leukocyte Esterase Urine RBC Urine WBC Ur Squamous Epith Cells Urine Bacteria Hyaline Casts Stool Occult Blood COVID-19 ([facility]) COVID-19 Clin Com Blood Type Antibody Screen Crossmatch Assessment and Plan (1) Atrial fibrillation: Status: Acute (2) Chest wall hematoma: Status: Acute (3) Acute blood loss anemia: Status: Acute Plan 77-year-old male with pertinent history of aortic stenosis status post valve replacement on Coumadin, atrial fibrillation status post pacemaker, BPH, essential hypertension, mixed hyperlipidemia, gastroesophageal reflux disease who presents to the emergency department for evaluation of abnormal speech. # abnormal speech, resolved: ?TIA . Unable to obtain MRI as patient has pacemaker. Awaiting Neuro consult, ASA if H/H improving # Acute blood loss anemia, likely in the setting of Large left chest wall hematomas on CT.: Stool guaiac negative in the ER. Patient denies hematemesis, hematuria, melena or hematochezia. Transfused 1 unit PRBC in the ER with increased iny. Patient states he saw his orthopedic surgeon who recommended conservative management of hematoma #. Reactive leukocytosis: defer antibiotics, no acute sings of infection #. s/p aortic valve replacement: On Coumadin, Hold as INR is supratherapeutic. INR goal 2-3. Repeat INR in a.m and probably continue coumadin will continue coumadin cautiously, #. elevated troponin: Likely due to increased demand, repeat with next blood check #. BPH on Flomax #. essential hypertension: Continue home antihypertensives #. atrial fibrillation: Status post pacemaker. Patient also on digoxin and beta-prem DVT prophylaxis: Coumadin Cardiac diet Full code need for inaptient TIA and Anemia management Time Spent With Patient Time: Total time managing care of this patient today ____ minutes. Quality Stroke Does the patient have a stroke diagnosis?: No VTE Prior VTE?: No VTE Risk Level:: Medical - moderate - high VTE Device Contraindication: Treatment Not Indicated VTE Drug Contraindication: N/A - Med Ordered
--- NOTE | 2022-11-03 11:35 | MHC.CM.PN ---
Met with patient and daughter, Pascale, in regards to discharge planning. Patient lives with , ambulates independently and is active with [facility]. Patient had total shoulder joint replacement at [facility] about 10 weeks ago. Patient returned to orthopedics office yesterday for follow up appointment. Patient was brought to the ER due to speech deficit and patient was admitted due to hyponatremia. Patient received 2 units of packed red blood cells due to low H&H. Patient denies ever going to short term rehab. Patient received 3 Moderna vaccines and 1 Pfizer vaccine. PCP is Dr Ramirez at the [place]. IMM explained and signed. Patient feels he will be able to safely return home with his and VNA when medically stable. Pascale doesn't feel that is realistic. Pascale is worried about patient's decreased PO intake and recent intermittent confusion at night. T/W explained physical therapy eval for home safety can be ordered when patient is closer to discharge. Pascale is also requesting a hematology consult due to hematoma and blood in patient's urine. Pascale is also requesting to speak to Dr Levin about patient's plan of care. Dr Levin has been made aware and will see patient and Pascale after 12pm. If home services are recommended, patient can return home with resumption of [facility]. If STR is recommended, STR will need to be found. Continue to monitor for d/c needs.
--- NOTE | 2022-11-03 11:36 | PC.NURSE ---
Report to Tracy LEWIS patient to go to overflow
--- NOTE | 2022-11-03 12:35 | PM.NEUROCN ---
History of Present Illness Data of Consult Service Date: 11/03/22 Primary Care Provider: Unknown Physician HPI Reason for consult: Transient speech problem with mumbled speech This is a 77-year-old male with h/o aortic stenosis status post valve replacement with [employer]. See's valve on Coumadin, atrial fibrillation, status post pacemaker, BPH, essential hypertension, mixed hyperlipidemia, gastroesophageal reflux disease who presents to the emergency department for evaluation of a transient speech impediment.? Patient states it was sudden onset on the day of presentation where he could not find words and his son at bedside states that his speech was mumbled.? It lasted for about 2 hours and resolved.? No blurring of vision, extremity weakness, facial droop or similar complaints in the past.? Patient had Reverse shoulder Replacementsurgery about 2 weeks ago at [facility] and was off Coumadin for 5 days before that.Lately he has been on a heparin bridge. Subsequently, he has noticed progressively worsening of hematoma at the site of shoulder surgery.? He saw his orthopedic surgeon who recommended conservative management of the hematoma.? Patient denies fever, chills, chest discomfort, palpitations, shortness of breath, abdominal pain, changes in urinary or bowel habits.No previous history of stroke or TIA Review of Systems Review of Systems: Positive slurred speech Positive confusion Yes all other systems are reviewed and are negative Constitutional: Constitutional: Reports fatigue Cardiovascular: Cardiovascular: Reports no additional cardiovascular complaints Respiratory: Respiratory: Reports no additional respiratory complaints Gastrointestinal: Gastrointestinal: Reports no additional gastrointestinal complaints Genitourinary: Genitourinary: Reports no additional male genitourinary complaints Neurologic: Reports Abnormal speech present Endocrine: Endocrine: Reports fatigue PMFSH Past Medical History Medical History Atrial fibrillation BPH (benign prostatic hyperplasia) Essential hypertension Hyperlipidemia Pacemaker Family History Pertinent family history: no family history of CAD Surgical History Surgical History H/O aortic valve replacement Social History Social History Alcohol intake: current Alcohol intake frequency: holidays/special occasions only Patient Tobacco Use Status: Never used Tobacco service: Yes Current occupational status: retired Meds Allergies Allergy/AdvReac Type Severity Reaction Status Date / Time No Known Allergies Allergy Verified 11/02/22 20:07 Active Medications: Current Medications Acetaminophen (Acetaminophen 325 Mg Tablet) 650 mg PO Q6H PRN PRN Reason: Pain, Mild (Pain Scale 1-3) Last Admin: 11/03/22 11:50 Dose: 650 mg Aspirin (Aspirin Enteric Coated 81 Mg Tablet.) 81 mg PO DAILY [facility] Bisoprolol Fumarate (Bisoprolol Fumarate 5 Mg Tablet) 5 mg PO BID [facility] Digoxin (Digoxin 0.125 Mg Tablet) 0.125 mg PO DAILY [facility] Last Admin: 11/03/22 11:28 Dose: 0.125 mg Latanoprost (Latanoprost 0.005 % Ophth Charley 2.5 Ml Drops) 1 drop EYE-BOTH BEDTIME [facility] Melatonin (Melatonin 3 Mg Tablet) 6 mg PO BEDTIME PRN PRN Reason: Insomnia Morphine Sulfate (Morphine Sulfate 4 Mg/Ml Cartridge) 4 mg IVPUSH Q4H PRN; Protocol PRN Reason: Pain, Severe (Pain Scale 7-10) Last Admin: 11/03/22 04:29 Dose: 4 mg Non-Formulary Medication (Alirocumab [Praluent Pen]) 150 mg SUBCUT Q14D [facility] Omeprazole (Omeprazole 20 Mg Capsule.) 20 mg PO DAILY@0630 [facility] Ondansetron HCl (Ondansetron Hcl 4 Mg/2 Ml Vial) 4 mg IVPUSH Q8H PRN PRN Reason: Nausea and Vomiting Last Admin: 11/03/22 00:25 Dose: 4 mg Pharmacy Consult (Consult Rx Perform Med Rec) 1 each MISCELLANE ONCE PRN PRN Reason: Consult order Sodium Chloride (0.9 % Sodium Chloride Flush 3 Ml Syringe) 3 ml IVFLUSH QSHIFT [facility] Last Admin: 11/03/22 07:41 Dose: Not Given Tamsulosin HCl (Tamsulosin Hcl 0.4 Mg Capsule) 0.4 mg PO DAILY [facility] Last Admin: 11/03/22 11:54 Dose: Not Given Valsartan (Valsartan 80 Mg Tablet) 80 mg PO DAILY [facility]; Protocol Last Admin: 11/03/22 11:28 Dose: 80 mg Home Medications Medication Instructions Recorded Confirmed Last Taken Type alirocumab 150 mg/mL subcutaneous 150 mg subcut Q2W 11/02/22 11/02/22 Unknown History pen injector (Praluent Pen) aspirin 81 mg tablet,delayed 81 mg PO DAILY 11/02/22 11/02/22 11/02/22 History release bisoprolol fumarate 5 mg tablet 5 mg PO BID 11/02/22 11/02/22 11/01/22 History digoxin 125 mcg (0.125 mg) tablet 1 tab PO DAILY 11/02/22 11/02/22 11/02/22 History lansoprazole 30 mg capsule,delayed 30 mg PO DAILY 11/02/22 11/02/22 11/02/22 History release latanoprost 0.005 % eye drops 1 drp ophthalmic (eye) BEDTIME 11/02/22 11/02/22 11/01/22 History tamsulosin 0.4 mg capsule 1 cap PO DAILY 11/02/22 11/02/22 Unknown History valsartan 80 mg tablet 1 tab PO DAILY 11/02/22 11/02/22 Unknown History warfarin 5 mg tablet 5 mg PO Q2D 11/02/22 11/02/22 Unknown History warfarin 5 mg tablet 7.5 mg PO Q2D 11/02/22 11/02/22 Unknown History Physical Exam Vital Signs: Vital Signs: Last Vital Signs Temp 98.9 F 11/03/22 10:44 Pulse 70 11/03/22 10:44 Resp 14 11/03/22 10:44 BP 168/69 H 11/03/22 10:44 Pulse Ox 96 11/03/22 10:29 O2 Del Method 11/03/22 10:29 BMI result Body Mass Index 28.5 Const: Other: General: AO X 3, no acute distress Resp: CTA bilateral CVS: S1,S2,RRR GI: +BS, NT, no distention Skin: No large chest wall palpable hematoma with brusing extending to axilla Neuro: motor grossly intact Psych: appropriate affect Neuro: Other: Normal nonfocal neurological examination with no speech impediment Speech: Abnormal speech present Results Labs 11/03/22 11:18 11/03/22 05:26 Labs: Short CBC 11/02/22 11/03/22 11/03/22 Range/Units 21:00 05:26 11:18 WBC 14.6 H 13.9 H (4.8-10.8) X10*3/uL Hgb 6.3 L* 7.0 L* 8.1 L (14.0-18.0) g/dl Hct 19.2 L* 20.7 L* 24.2 L (42.0-52.0) % Plt Count 440 H 431 H (160-400) X10*3/uL BMP 11/02/22 11/03/22 21:00 05:26 Sodium 129 L 130 L Potassium 4.3 4.3 Chloride 96 97 Carbon Dioxide 25 24 BUN 16 15 Creatinine 0.68 0.67 Calcium 8.2 L 8.0 L Liver Function 11/02/22 Range/Units 21:00 Total Bilirubin 2.8 H (0.0-1.0) mg/dL Direct Bilirubin 1.0 H (0.0-0.5) mg/dL AST 39 H (5-37) U/L ALT 20 (0-40) U/L Alkaline Phosphatase 79 (39-117) U/L Albumin 3.2 L (3.5-5.0) g/dL Urine 11/03/22 Range/Units 00:41 Urine Color Dark Yellow Urine Appearance Clear Urine pH 5.5 (5.0-9.0) Ur Specific [place] 1.025 (1.005-1.025) Urine Protein 30 (1+) H (Neg-Trace) mg/dL Urine Glucose (UA) Negative (Negative) mg/dL Assessment and Plan (1) Brain TIA: Status: Acute He appears to have had a focal neurological deficits in the left hemisphere most likely embolic due to stoppage of his anticoagulation is and the presence of a mechanical heart valve. Unfortunately, he has a large hematoma in his anterior chest and shoulder and it is a judgment call of when anticoagulation can be resumed. He has become significantly anemic with a hemoglobin of 6.1. Recommendation as soon as it is considered safe in terms of his hematoma that it is not growing, he should be restarted on anticoagulation which can initially be in the form of a heparin bridge for the first week and then assuming the hematoma stable, he can be restarted on Coumadin. MRI was not done because of pacemaker. (2) Atrial fibrillation: Status: Acute (3) Chest wall hematoma: Status: Acute (4) Acute blood loss anemia: Status: Acute Plan 77-year-old male with pertinent history of aortic stenosis status post valve replacement on Coumadin, atrial fibrillation status post pacemaker, BPH, essential hypertension, mixed hyperlipidemia, gastroesophageal reflux disease who presents to the emergency department for evaluation of abnormal speech. # abnormal speech, resolved: ?TIA . Unable to obtain MRI as patient has pacemaker. Awaiting Neuro consult, ASA if H/H improving # Acute blood loss anemia, likely in the setting of Large left chest wall hematomas on CT.: Stool guaiac negative in the ER. Patient denies hematemesis, hematuria, melena or hematochezia. Transfused 1 unit PRBC in the ER with increased iny. Patient states he saw his orthopedic surgeon who recommended conservative management of hematoma #. Reactive leukocytosis: defer antibiotics, no acute sings of infection #. s/p aortic valve replacement: On Coumadin, Hold as INR is supratherapeutic. INR goal 2-3. Repeat INR in a.m and probably continue coumadin will continue coumadin cautiously, #. elevated troponin: Likely due to increased demand, repeat with next blood check #. BPH on Flomax #. essential hypertension: Continue home antihypertensives #. atrial fibrillation: Status post pacemaker. Patient also on digoxin and beta-prem DVT prophylaxis: Coumadin Cardiac diet Full code need for inaptient TIA and Anemia management Time Spent With Patient Time: Total time managing care of this patient today ____ minutes. Procedures Date of Service Date of Service: 11/03/22
[2022-11-03] MEDS: Bisoprolol Fumarate 5 MG TABLET PO ×2 (13:57→20:50)
[2022-11-03] MEDS: Latanoprost 0.005 % Ophth Sol 2.5 ML DROPS 1 DROP EYE-BOTH (22:37)
[2022-11-04] VITALS (8 sets, daily range): BP systolic 120–159; BP diastolic 58–70; PULSE 70–71; RESP 18–20; TEMP 36.3–36.9; O2SAT 95–98
[2022-11-04] MEDS: Acetaminophen 325 MG TABLET 650 MG PO ×3 (04:10→20:20)
[2022-11-04] MEDS: Omeprazole 20 MG CAPSULE.DR PO (06:07)
[2022-11-04] MEDS: Tamsulosin HCL 0.4 MG CAPSULE PO (08:08)
[2022-11-04] MEDS: Bisoprolol Fumarate 5 MG TABLET PO ×2 (08:09→20:20)
[2022-11-04] MEDS: Valsartan 80 MG TABLET PO (08:09)
[2022-11-04] MEDS: 0.9 % Sodium Chloride Flush 3 ML SYRINGE IVFLUSH ×3 (08:09→20:21)
[2022-11-04] MEDS: Digoxin 0.125 MG TABLET PO (08:09)
[2022-11-04] MEDS: Aspirin Enteric Coated 81 MG TABLET.DR PO (08:09)
[2022-11-04 08:24] LABS: Hematocrit 24.6 % (42.0-52.0); Hemoglobin 8.1 g/dl (14.0-18.0); Mean Corpuscular HGB Conc 32.9 g/dl (31.0-36.0); Mean Corpuscular Hemoglobin 32.1 pg (27.0-33.0); Mean Corpuscular Volume 97.6 fL (80.0-98.0); Platelet Count 417 X10*3/uL (160-400); Red Blood Count 2.52 X10*6/uL (4.60-5.80); Red Cell Distribution Width 15.8 % (11.0-16.0); White Blood Count 13.5 X10*3/uL (4.8-10.8)
[2022-11-04 08:30] LABS: INTERNATIONAL NORM RATIO 1.8 (0.9-1.1); Prothrombin Time 21.1 SEC (10.0-13.1)
--- NOTE | 2022-11-04 09:53 | P.PNIM_ITS ---
Subjective Subjective Date of Service: 11/05/22 Interval History: f/u on transient speech changes ? TIA Interval history: Speech is clear, no new complaint, H/H down further hematoma size remains unchanged Physical Exam Vital Signs: Vital Signs: Last Vital Signs Temp 97.9 F 11/04/22 07:37 Pulse 71 11/04/22 07:37 Resp 18 11/04/22 07:37 BP 130/58 L 11/04/22 07:37 Pulse Ox 98 11/04/22 07:37 O2 Del Method 11/04/22 07:37 BMI result Body Mass Index 28.5 Const: Other: General: AO X 3, no acute distress Resp: CTA bilateral CVS: S1,S2,RRR GI: +BS, NT, no distention Skin: No large chest wall palpable hematoma with brusing extending to axilla Neuro: motor grossly intact Psych: appropriate affect Objective Data Active Medications Acetaminophen (Acetaminophen 325 Mg Tablet) 650 mg PO Q6H PRN PRN Reason: Pain, Mild (Pain Scale 1-3) Last Admin: 11/04/22 04:10 Dose: 650 mg Documented By: CRYS Aspirin (Aspirin Enteric Coated 81 Mg Tablet.Dr) 81 mg PO DAILY [facility] Last Admin: 11/04/22 08:09 Dose: 81 mg Documented By: COLIN Bisoprolol Fumarate (Bisoprolol Fumarate 5 Mg Tablet) 5 mg PO BID [facility] Last Admin: 11/04/22 08:09 Dose: 5 mg Documented By: COLIN Digoxin (Digoxin 0.125 Mg Tablet) 0.125 mg PO DAILY [facility] Last Admin: 11/04/22 08:09 Dose: 0.125 mg Documented By: COLIN Latanoprost (Latanoprost 0.005 % Ophth Charley 2.5 Ml Drops) 1 drop EYE-BOTH BEDTIME [facility] Last Admin: 11/03/22 22:37 Dose: 1 drop Documented By: CRYS Melatonin (Melatonin 3 Mg Tablet) 6 mg PO BEDTIME PRN PRN Reason: Insomnia Morphine Sulfate (Morphine Sulfate 4 Mg/Ml Cartridge) 4 mg IVPUSH Q4H PRN; Protocol PRN Reason: Pain, Severe (Pain Scale 7-10) Last Admin: 11/03/22 04:29 Dose: 4 mg Documented By: PETER Non-Formulary Medication (Alirocumab [Praluent Pen]) 150 mg SUBCUT Q14D [facility] Omeprazole (Omeprazole 20 Mg Capsule.) 20 mg PO DAILY@0630 [facility] Last Admin: 11/04/22 06:07 Dose: 20 mg Documented By: CRYS Ondansetron HCl (Ondansetron Hcl 4 Mg/2 Ml Vial) 4 mg IVPUSH Q8H PRN PRN Reason: Nausea and Vomiting Last Admin: 11/03/22 00:25 Dose: 4 mg Documented By: PETER Oxycodone HCl (Oxycodone Hcl Immed Release 5 Mg Tablet) 5 mg PO Q6H PRN PRN Reason: Pain, Severe (Pain Scale 7-10) Pharmacy Consult (Consult Rx Perform Med Rec) 1 each MISCELLANE ONCE PRN PRN Reason: Consult order Sodium Chloride (0.9 % Sodium Chloride Flush 3 Ml Syringe) 3 ml IVFLUSH QSHIFT [facility] Last Admin: 11/04/22 08:09 Dose: 3 ml Documented By: COLIN Tamsulosin HCl (Tamsulosin Hcl 0.4 Mg Capsule) 0.4 mg PO DAILY [facility] Last Admin: 11/04/22 08:08 Dose: 0.4 mg Documented By: COLIN Valsartan (Valsartan 80 Mg Tablet) 80 mg PO DAILY [facility]; Protocol Last Admin: 11/04/22 08:09 Dose: 80 mg Documented By: COLIN Warfarin Sodium (Warfarin Sodium 5 Mg Tablet) 5 mg PO Q48H [facility] Warfarin Sodium (Warfarin Sodium 7.5 Mg Tablet) 7.5 mg PO Q48H [facility] Labs 11/04/22 08:13 11/03/22 05:26 Labs: Laboratory Results - last 24 hr 11/02/22 11/04/22 11/04/22 21:33 08:13 08:13 MCV 97.6 MCH 32.1 MCHC 32.9 RDW 15.8 Plt Count 417 H MPV 9.0 L Absolute Nucleated RBC 0.000 Nucleated RBC % (auto) 0.0 PT 21.1 H INR 1.8 H Crossmatch See Detail Assessment and Plan (1) Atrial fibrillation: Status: Acute (2) Chest wall hematoma: Status: Acute (3) Acute blood loss anemia: Status: Acute Plan 77-year-old male with pertinent history of aortic stenosis status post valve replacement on Coumadin, atrial fibrillation status post pacemaker, BPH, essential hypertension, mixed hyperlipidemia, gastroesophageal reflux disease w chelsey presents to the emergency department for evaluation of abnormal speech. ?# abnormal speech, resolved: ?TIA .? Unable to obtain MRI as patient has pacemaker.? --seen by Neuro with the following recommendations: Recommendation as soon as it is considered safe in terms of his hematoma that it is not growing, he should be restarted on anticoagulation which can initially be in the form of a heparin bridge for the first week and then assuming the hematoma stable, he can be restarted on Coumadin.? MRI was not done because of pacemaker. ?# Acute blood loss anemia, likely in the setting of??Large left chest wall hematomas as seen on CT.:? Stool guaiac negative in the ER.? Patient denies hematemesis, hematuria, melena or hematochezia.? Transfused? 1 unit PRBC in the ER with increased in h/h but today down further, Ortho recommends conservative managemet. Transfuse 1 unit today ?#.? Reactive leukocytosis: defer antibiotics, no acute sings of infection ?#. s/p aortic valve replacement:? On Coumadin, coumadin resumed yesterday at lower dose, INR is now 1.5 will discus option Hematology ?#. elevated troponin:? Likely due to increased demand, repeat with next blood c heck ? #.? BPH on Flomax ?#. essential hypertension:? Continue home antihypertensives ?#. atrial fibrillation:? Status post pacemaker.? Patient also on digoxin and beta-prem Need for inpatient: acute blood loss anemia, d/t hematoma being transfused and monitoring blood level Time Spent With Patient Time: Total time managing care of this patient today ____ minutes. Quality Stroke Does the patient have a stroke diagnosis?: No VTE Prior VTE?: No VTE Risk Level:: Medical - moderate - high VTE Device Contraindication: Treatment Not Indicated VTE Drug Contraindication: N/A - Med Ordered
--- NOTE | 2022-11-04 13:13 | P.CNHO_ITS ---
Subjective - Subjective Chief complaint: Left shoulder/chest wall swelling Patient: new to practice Consult date: 11/04/22 Requesting Physician: Dmitriy Levin MD Primary Care Provider: Unknown Physician HPI - Consult Narrative Reason for consult: Hematoma, need for anticoagulation Narrative: Cesar Modi is a 77 year old male who is admitted because of large hematoma involving the left shoulder and chest wall. He presented with symptoms of confusion and speech disturbance which was felt to be TIA like symptoms. This resolved quickly, brain imaging was negative. Blood work showed hemoglobin less than 7 gram/dL and a large hematoma in the left shoulder area. He underwent shoulder surgery in [facility] about 2 weeks ago. He has been on warfarin for nearly 30 years for atrial fibrillation as well as aortic valve replacement. He was taken off warfarin 5 days before procedure and he was on Lovenox for bridging. After surgery, he was started on warfarin 7.5 mg along with Lovenox 100 mg b.i.d.. He was on this until Wednesday when he came to [facility] with weakness and transient mental status changes. He has INR was supratherapeutic, warfarin has been stopped. He received 2 units blood transfusion for anemia. He is feeling a lot better now. Hematoma of his left shoulder is stable. No complaints of hematochezia, melena or hematuria. He did have dark colored urine in the last couple of days. The question is now about resuming his anticoagulation for his heart. Review of Systems - Constitutional Reports as per HPI, Reports fatigue, Denies malaise, Denies night sweats, Denies weight loss - Cardiovascular Reports no additional cardiovascular complaints - Respiratory Reports no additional respiratory complaints - Gastrointestinal Reports no additional gastrointestinal complaints, Denies black, tarry stools - Neurologic Reports abnormal speech [facility] Medical History: Medical History (Last Reviewed 11/04/22 @ 14:00 by Princess Sargent, PT) Atrial fibrillation BPH (benign prostatic hyperplasia) Essential hypertension Hyperlipidemia Pacemaker Surgical History: Surgical History (Last Reviewed 11/04/22 @ 14:00 by Princess Sargent, MINESH) H/O aortic valve replacement Social History: Social History (Last Reviewed 11/02/22 @ 23:34 by Nicolás Duron MD) Living Situation History: Household Members: Spouse Housing: House Do you presently have visiting nurse or other home services: No Tobacco History: Patient Tobacco Use Status: Never used Tobacco e-Cigarette/Vaping Use: Never Used Second Hand Smoke Exposure: No Advance Directives: Advance Directives Date on File: 11/03/22 Occupation Assessmet: service: Yes Current occupational status: retired Home Medications and Allergies Current Medications: Current Medications Acetaminophen (Acetaminophen 325 Mg Tablet) 650 mg PO Q6H PRN PRN Reason: Pain, Mild (Pain Scale 1-3) Last Admin: 11/04/22 12:09 Dose: 650 mg Aspirin (Aspirin Enteric Coated 81 Mg Tablet.) 81 mg PO DAILY [facility] Last Admin: 11/04/22 08:09 Dose: 81 mg Bisoprolol Fumarate (Bisoprolol Fumarate 5 Mg Tablet) 5 mg PO BID [facility] Last Admin: 11/04/22 08:09 Dose: 5 mg Digoxin (Digoxin 0.125 Mg Tablet) 0.125 mg PO DAILY [facility] Last Admin: 11/04/22 08:09 Dose: 0.125 mg Latanoprost (Latanoprost 0.005 % Ophth Charley 2.5 Ml Drops) 1 drop EYE-BOTH BEDTIME [facility] Last Admin: 11/03/22 22:37 Dose: 1 drop Melatonin (Melatonin 3 Mg Tablet) 6 mg PO BEDTIME PRN PRN Reason: Insomnia Morphine Sulfate (Morphine Sulfate 4 Mg/Ml Cartridge) 4 mg IVPUSH Q4H PRN; Pr otocol PRN Reason: Pain, Severe (Pain Scale 7-10) Last Admin: 11/03/22 04:29 Dose: 4 mg Non-Formulary Medication (Alirocumab [Praluent Pen]) 150 mg SUBCUT Q14D [facility] Omeprazole (Omeprazole 20 Mg Capsule.) 20 mg PO DAILY@0630 [facility] Last Admin: 11/04/22 06:07 Dose: 20 mg Ondansetron HCl (Ondansetron Hcl 4 Mg/2 Ml Vial) 4 mg IVPUSH Q8H PRN PRN Reason: Nausea and Vomiting Last Admin: 11/03/22 00:25 Dose: 4 mg Oxycodone HCl (Oxycodone Hcl Immed Release 5 Mg Tablet) 5 mg PO Q6H PRN PRN Reason: Pain, Severe (Pain Scale 7-10) Pharmacy Consult (Consult Rx Perform Med Rec) 1 each MISCELLANE ONCE PRN PRN Reason: Consult order Sodium Chloride (0.9 % Sodium Chloride Flush 3 Ml Syringe) 3 ml IVFLUSH QSHIFT [facility] Last Admin: 11/04/22 08:09 Dose: 3 ml Tamsulosin HCl (Tamsulosin Hcl 0.4 Mg Capsule) 0.4 mg PO DAILY [facility] Last Admin: 11/04/22 08:08 Dose: 0.4 mg Valsartan (Valsartan 80 Mg Tablet) 80 mg PO DAILY [facility]; Protocol Last Admin: 11/04/22 08:09 Dose: 80 mg Warfarin Sodium (Warfarin Sodium 5 Mg Tablet) 5 mg PO Q48H [facility] Warfarin Sodium (Warfarin Sodium 7.5 Mg Tablet) 7.5 mg PO Q48H [facility] Home Medications Medication Instructions Recorded Confirmed Type alirocumab 150 mg/mL subcutaneous 150 mg subcut Q2W 11/02/22 11/02/22 History pen injector (Praluent Pen) aspirin 81 mg tablet,delayed 81 mg PO DAILY 11/02/22 11/02/22 History release bisoprolol fumarate 5 mg tablet 5 mg PO BID 11/02/22 11/02/22 History digoxin 125 mcg (0.125 mg) tablet 1 tab PO DAILY 11/02/22 11/02/22 History lansoprazole 30 mg capsule,delayed 30 mg PO DAILY 11/02/22 11/02/22 History release latanoprost 0.005 % eye drops 1 drp ophthalmic (eye) BEDTIME 11/02/22 11/02/22 History tamsulosin 0.4 mg capsule 1 cap PO DAILY 11/02/22 11/02/22 History valsartan 80 mg tablet 1 tab PO DAILY 11/02/22 11/02/22 History warfarin 5 mg tablet 5 mg PO Q2D 11/02/22 11/02/22 History warfarin 5 mg tablet 7.5 mg PO Q2D 11/02/22 11/02/22 History Allergies Allergy/AdvReac Type Severity Reaction Status Date / Time No Known Allergies Allergy Verified 11/02/22 20:07 Physical Exam Vital signs: Vital Signs Temp 97.4 F 11/04/22 11:37 Pulse 70 11/04/22 11:37 Resp 18 11/04/22 11:37 BP 120/60 11/04/22 11:37 Pulse Ox 96 11/04/22 11:37 O2 Del Method 11/04/22 11:37 Intake & Output 11/03/22 11/04/22 11/04/22 18:59 06:59 18:59 Intake Total 350 / 530 180 / 530 Balance 350 / 530 180 / 530 Intake: Intake, Oral Amount 180 / 180 Intake (Blood Product) Amount 350 / 350 Red Blood Cells (E0336) Unit 350 / 350 [id number] Other: Number of Unmeasured Voids 2 Urine Bathroom Urine Color Yellow Last Bowel Movement 11/01/22 Weight 95.254 kg - Constitutional Present: no acute distress - Routine HEENT Exam Head: Present: normal inspection Eye: Present: PERRL - Routine Neck Exam Absent: lymphadenopathy - Routine Chest/Breast/Axilla Exam Chest wall: Present: mass Comments: Large hematoma involving left upper chest wall and shoulder region. Incision is preserved and there is no signs of infection. - Routine Respiratory Exam Present: CTAB - Routine Cardiovascular Exam Cardiovascular: Present: S1, S2 - Routine Abdominal Exam Present: soft - Routine Extremities Exam Absent: pedal edema Hem/Onc Consult Result - Labs CBC & Chem 7: 11/04/22 08:13 11/04/22 13:37 Labs: Short CBC 11/04/22 Range/Units 08:13 WBC 13.5 H (4.8-10.8) X10*3/uL Hgb 8.1 L (14.0-18.0) g/dl Hct 24.6 L (42.0-52.0) % Plt Count 417 H (160-400) X10*3/uL Assessment and Plan Patient Active problem list reviewed?: Yes (1) Acute blood loss anemia Status: Acute Assessment and plan: 1. This is a pleasant 77-year-old male with history of atrial fibrillation, status post aortic valve replacement, on chronic warfarin presenting with large left chest wall hematoma in the postoperative setting. On presentation, hemoglobin was down to 6.3 gram/dL which is probably related to blood loss secondary to hematoma. There is no previous recent H&H to compare. However, he was not told of anemia in the past and he underwent shoulder surgery at [facility] about [address] chest performed 11/03/2022 shows a large left chest wall hematoma measuring 14.7 x 15.7 x 9.4 cm, 2nd hematoma in front of left scapula measuring 12.1 x 4.9 x 8.8 cm. Her left shoulder prosthesis is present, median sternotomy and CABG. He has received 2 units PRBC. On admission his INR was 3.4, warfarin has been on hold and his INR gradually declined to 1.8 on 11/04/2022. Cause of hematoma is most likely postoperative use of warfarin and Lovenox. He was receiving Lovenox 100 mg b.i.d. along with 7.5 mg of warfarin, INR monitoring was done at home by visiting nurses. I reviewed his case with his orthopedic surgeon as well. Hematoma appears to be stable at this point. He did advise that the patient go back on warfarin. I recommend starting with low-dose 3 mg, monitoring CBC and PT/ INR daily. Rest of his coagulation profile is normal. Start oral iron supplementation. I thank you for the consult. - Time Spent With Patient Time Spent with Patient (in minutes): 35
[2022-11-04 14:09] LABS: Partial Thromboplastin Time 30.6 SEC (26.0-36.4)
[2022-11-04 14:11] LABS: Alanine Aminotransferase 26 U/L (0-40); Albumin Level 2.6 g/dL (3.5-5.0); Alkaline Phosphatase 84 U/L (39-117); Anion Gap 10 (12-20); Aspartate Amino Transferase 49 U/L (5-37); Bilirubin Total 2.6 mg/dL (0.0-1.0); Blood Urea Nitrogen 15 mg/dL (9-16); Calcium 7.6 mg/dL (8.4-10.2); Carbon Dioxide 25 mmol/L (22-29); Chloride 99 mmol/L (96-108); Creatinine Clr Calc Pharmacy 104.3; Estimated Glomerular Filt Rate > 60; Fibrinogen > 700 MG/DL (259-690); Glucose Random 123 mg/dL (60-115); Potassium 4.1 mmol/L (3.3-5.1); Sodium 130 mmol/L (135-145); Total Protein 4.7 g/dL (6.5-8.0)
[2022-11-04] MEDS: Warfarin Sodium 3 MG TABLET PO (15:13)
--- NOTE | 2022-11-04 16:55 | MHC.CM.PN ---
Addendum entered by Angelina Barrientos 11/04/22 16:56: No dc today: patient required a blood transfusion. Original Note: PT eval rec STR. Preferences obtained referrals sent. Patient has accepted a bed offer from [facility]. DP 1-2 days to [facility] via BLS.
[2022-11-04] MEDS: Ferrous Sulfate 324 MG TABLET.DR 325 MG PO (18:22)
[2022-11-04] MEDS: oxyCODONE HCl Immed Release 5 MG TABLET PO (18:22)
[2022-11-04] MEDS: Latanoprost 0.005 % Ophth Sol 2.5 ML DROPS 1 DROP EYE-BOTH (20:20)
[2022-11-04] MEDS: Melatonin 3 MG TABLET 6 MG PO (20:41)
[2022-11-04 22:51] LABS: Appearance Urine Clear; Color Urine Dark Yellow; Glucose Urine UA Negative (Negative); Leukocyte Esterase Urine Trace (Negative); Nitrite Urine Negative (Negative); PH 5.5 (5.0-9.0); Specific Gravity - Urine 1.025 (1.005-1.025); UMIC TRIGGER UACC YES; Urine Blood Negative (Negative); Urine Ketones Trace mg/dL (Negative); Urine Protein Trace mg/dL (Neg-Trace)
[2022-11-04 22:53] LABS: Bacteria Urine None Seen (None Seen); Hyaline Casts Urine 0-2 /LPF (0-2); Squamous Epithelial Cell Urine 0-2 /HPF (0-2); WBC Urine 0-5 /HPF (0-5)
[2022-11-05] VITALS (9 sets, daily range): BP systolic 100–151; BP diastolic 51–76; PULSE 69–70; RESP 16–18; TEMP 36.1–36.9; O2SAT 96–98
[2022-11-05] MEDS: Acetaminophen 325 MG TABLET 650 MG PO ×3 (04:49→21:31)
[2022-11-05] MEDS: Omeprazole 20 MG CAPSULE.DR PO (05:08)
[2022-11-05 06:44] LABS: INTERNATIONAL NORM RATIO 1.5 (0.9-1.1); Prothrombin Time 17.7 SEC (10.0-13.1)
[2022-11-05] MEDS: Aspirin Enteric Coated 81 MG TABLET.DR PO (07:58)
[2022-11-05] MEDS: Digoxin 0.125 MG TABLET PO (07:58)
[2022-11-05] MEDS: Ferrous Sulfate 324 MG TABLET.DR 325 MG PO (07:59)
[2022-11-05] MEDS: Tamsulosin HCL 0.4 MG CAPSULE PO (07:59)
[2022-11-05] MEDS: Bisoprolol Fumarate 5 MG TABLET PO ×2 (07:59→21:31)
[2022-11-05] MEDS: oxyCODONE HCl Immed Release 5 MG TABLET PO ×3 (07:59→23:10)
[2022-11-05] MEDS: Valsartan 80 MG TABLET PO (07:59)
[2022-11-05] MEDS: 0.9 % Sodium Chloride Flush 3 ML SYRINGE IVFLUSH ×3 (08:00→21:32)
[2022-11-05 08:10] LABS: Hemoglobin 7.7 g/dl (14.0-18.0); Mean Corpuscular HGB Conc 32.1 g/dl (31.0-36.0); Mean Corpuscular Hemoglobin 31.6 pg (27.0-33.0); Mean Corpuscular Volume 98.4 fL (80.0-98.0); Mean Platelet Volume 9.4 fL (9.4-12.4); Platelet Count 445 X10*3/uL (160-400); Red Blood Count 2.44 X10*6/uL (4.60-5.80); Red Cell Distribution Width 15.6 % (11.0-16.0); White Blood Count 10.8 X10*3/uL (4.8-10.8)
[2022-11-05] MEDS: Enoxaparin Sodium 60 MG/0.6 ML SYRINGE 50 MG SUBCUT (14:10)
[2022-11-05] MEDS: Warfarin Sodium 5 MG TABLET PO (17:09)
--- NOTE | 2022-11-05 20:47 | PC.RT ---
Pt refusing CPAP at this time
[2022-11-05] MEDS: Melatonin 3 MG TABLET 6 MG PO (21:31)
[2022-11-05] MEDS: Latanoprost 0.005 % Ophth Sol 2.5 ML DROPS 1 DROP EYE-BOTH (21:32)
[2022-11-05] MEDS: polyethylene glycoL 3350 17 GM POWD.PACK PO (21:52)
[2022-11-06] MEDS: Enoxaparin Sodium 60 MG/0.6 ML SYRINGE 50 MG SUBCUT ×2 (00:33→12:27)
[2022-11-06 03:01] VITALS: BP 154/70; PULSE 67; RESP 18; TEMP 36.2; O2SAT 100
--- NOTE | 2022-11-06 03:51 | PC.NURSE ---
Pt was c/o constipation ,having no BM for 4 days and had only small hard during the day, pt is requesting for stool softener, +BS, no tenderness, Dr. Duron was notified, Miralax po was ordered and pt was able to move some mode hard BM after.
[2022-11-06] MEDS: Omeprazole 20 MG CAPSULE.DR PO (05:37)
[2022-11-06 07:00] VITALS: BP 130/61; PULSE 65; RESP 18; TEMP 36.6; O2SAT 98
[2022-11-06 07:03] LABS: INTERNATIONAL NORM RATIO 1.4 (0.9-1.1); Prothrombin Time 16.4 SEC (10.0-13.1)
[2022-11-06] MEDS: Aspirin Enteric Coated 81 MG TABLET.DR PO (08:41)
[2022-11-06] MEDS: Valsartan 80 MG TABLET PO (08:41)
[2022-11-06] MEDS: Digoxin 0.125 MG TABLET PO (08:41)
[2022-11-06] MEDS: Ferrous Sulfate 324 MG TABLET.DR 325 MG PO (08:41)
[2022-11-06] MEDS: 0.9 % Sodium Chloride Flush 3 ML SYRINGE IVFLUSH ×2 (08:42→17:11)
[2022-11-06] MEDS: Tamsulosin HCL 0.4 MG CAPSULE PO (08:42)
[2022-11-06] MEDS: Acetaminophen 325 MG TABLET 650 MG PO (08:42)
[2022-11-06] MEDS: Bisoprolol Fumarate 5 MG TABLET PO ×2 (08:42→21:02)
--- NOTE | 2022-11-06 09:49 | HO.PM.IMPN ---
Subjective Subjective Date of Service: 11/06/22 Interval History: f/u on transient speech changes ? TIA Interval history: Speech is clear, no new complaint, INR 1.4 hematoma size is stable Physical Exam Vital Signs: Vital Signs: Last Vital Signs Temp 97.8 F 11/06/22 07:00 Pulse 65 11/06/22 07:00 Resp 18 11/06/22 07:00 BP 130/61 11/06/22 07:00 Pulse Ox 98 11/06/22 07:00 O2 Del Method 11/06/22 07:00 O2 Flow Rate 2 11/06/22 03:01 BMI result Body Mass Index 28.5 Const: Other: General: AO X 3, no acute distress Resp: CTA bilateral CVS: S1,S2,RRR GI: +BS, NT, no distention Skin: No large chest wall palpable hematoma with brusing extending to axilla Neuro: motor grossly intact Psych: appropriate affect Objective Data Active Medications Acetaminophen (Acetaminophen 325 Mg Tablet) 650 mg PO Q6H PRN PRN Reason: Pain, Mild (Pain Scale 1-3) Last Admin: 11/06/22 08:42 Dose: 650 mg Documented By: COLIN Aspirin (Aspirin Enteric Coated 81 Mg Tablet.) 81 mg PO DAILY [facility] Last Admin: 11/06/22 08:41 Dose: 81 mg Documented By: COLIN Bisoprolol Fumarate (Bisoprolol Fumarate 5 Mg Tablet) 5 mg PO BID [facility] Last Admin: 11/06/22 08:42 Dose: 5 mg Documented By: COLIN Digoxin (Digoxin 0.125 Mg Tablet) 0.125 mg PO DAILY [facility] Last Admin: 11/06/22 08:41 Dose: 0.125 mg Documented By: COLIN Enoxaparin Sodium (Enoxaparin Sodium 60 Mg/0.6 Ml Syringe) 50 mg SUBCUT Q12H [facility] Last Admin: 11/06/22 00:33 Dose: 50 mg Documented By: BARBI Ferrous Sulfate (Ferrous Sulfate 324 Mg Tablet.) 325 mg PO DAILY [facility] Last Admin: 11/06/22 08:41 Dose: 325 mg Documented By: COLIN Latanoprost (Latanoprost 0.005 % Ophth Charley 2.5 Ml Drops) 1 drop EYE-BOTH BEDTIME [facility] Last Admin: 11/05/22 21:32 Dose: 1 drop Documented By: BARBI Melatonin (Melatonin 3 Mg Tablet) 6 mg PO BEDTIME PRN PRN Reason: Insomnia Last Admin: 11/05/22 21:31 Dose: 6 mg Documented By: BARBI Morphine Sulfate (Morphine Sulfate 4 Mg/Ml Cartridge) 4 mg IVPUSH Q4H PRN; Protocol PRN Reason: Pain, Severe (Pain Scale 7-10) Last Admin: 11/03/22 04:29 Dose: 4 mg Documented By: PETER Omeprazole (Omeprazole 20 Mg Capsule.) 20 mg PO DAILY@0630 [facility] Last Admin: 11/06/22 05:37 Dose: 20 mg Documented By: BARBI Ondansetron HCl (Ondansetron Hcl 4 Mg/2 Ml Vial) 4 mg IVPUSH Q8H PRN PRN Reason: Nausea and Vomiting Last Admin: 11/03/22 00:25 Dose: 4 mg Documented By: PETER Oxycodone HCl (Oxycodone Hcl Immed Release 5 Mg Tablet) 5 mg PO Q6H PRN PRN Reason: Pain, Severe (Pain Scale 7-10) Last Admin: 11/05/22 23:10 Dose: 5 mg Documented By: BARBI Pharmacy Consult (Consult Rx Perform Med Rec) 1 each MISCELLANE ONCE PRN PRN Reason: Consult order Sodium Chloride (0.9 % Sodium Chloride Flush 3 Ml Syringe) 3 ml IVFLUSH [facility] Last Admin: 11/06/22 08:42 Dose: 3 ml Documented By: COLIN Tamsulosin HCl (Tamsulosin Hcl 0.4 Mg Capsule) 0.4 mg PO DAILY [facility] Last Admin: 11/06/22 08:42 Dose: 0.4 mg Documented By: COLIN Valsartan (Valsartan 80 Mg Tablet) 80 mg PO DAILY [facility]; Protocol Last Admin: 11/06/22 08:41 Dose: 80 mg Documented By: COLIN Warfarin Sodium (Warfarin Sodium 5 Mg Tablet) 5 mg PO DAILY@1800 [facility] Last Admin: 11/05/22 17:09 Dose: 5 mg Documented By: COLIN Labs 11/05/22 06:20 11/04/22 13:37 Labs: Laboratory Results - last 24 hr 11/02/22 11/06/22 21:33 06:04 PT 16.4 H INR 1.4 H Blood Type O Positive Antibody Screen NEGATIVE Crossmatch See Detail Assessment and Plan (1) Atrial fibrillation: Status: Acute (2) Chest wall hematoma: Status: Acute (3) Acute blood loss anemia: Status: Acute Plan 77-year-old male with pertinent history of aortic stenosis status post valve replacement on Coumadin, atrial fibrillation status post pacemaker, BPH, essential hypertension, mixed hyperlipidemia, gastroesophageal reflux disease who presents to the emergency department for evaluation of abnormal speech. ?# abnormal speech, resolved: ?TIA .? Unable to obtain MRI as patient has pacemaker.? --seen by Neuro with the following recommendations: Recommendation as soon as it is considered safe in terms of his hematoma that it is not growing, he should be restarted on anticoagulation which can initially be in the form of a heparin bridge for the first week and then assuming the hematoma stable, he can be restarted on Coumadin.? MRI was not done because of pacemaker. ?# Acute blood loss anemia, likely in the setting of??Large left chest wall hematomas as seen on CT.:? Stool guaiac negative in the ER.? Patient denies hematemesis, hematuria, melena or hematochezia.? Transfused? 1 unit PRBC in the ER with increased in h/h but today down further, Ortho recommends conservative managemet. Transfuse 1 unit on 11/05, total 2, repeat h/h ?#.? Reactive leukocytosis: defer antibiotics, no acute sings of infection ?#. s/p aortic valve replacement:? On Coumadin, coumadin resumed yesterday at lower dose, INR is now 1.4, started on Lovenox 11/05, and will adjust coumadin with goal of inr 2 to 3 ?#. elevated troponin:? Likely due to increased demand, repeat with next blood check ? #.? BPH on Flomax ?#. essential hypertension:? Continue home antihypertensives ?#. atrial fibrillation:? Status post pacemaker.? Patient also on digoxin and beta-prem Need for inpatient: acute blood loss anemia, d/t hematoma being transfused and monitoring blood level Time Spent With Patient Time: Total time managing care of this patient today ____ minutes. Quality Stroke Does the patient have a stroke diagnosis?: No VTE Prior VTE?: No VTE Risk Level:: Medical - moderate - high VTE Device Contraindication: Treatment Not Indicated VTE Drug Contraindication: N/A - Med Ordered
--- NOTE | 2022-11-06 10:40 | MHC.CM.PN ---
PER , PT WILL REMAIN ONE MORE DAY HEATHER GIRON
[2022-11-06 11:01] VITALS: BP 130/61; PULSE 65; O2SAT 98
--- NOTE | 2022-11-06 11:12 | P.PNHO-ONC_ITS ---
Medical Summary - Medical Summary Date of Service: 11/06/22 Chief complaint: Left chest wall hematoma Primary Care Provider: Cindy Ramirez MD Medical Summary: Diagnosis: Postoperative hematoma admitted because of large hematoma involving the left shoulder and chest wall. He presented with symptoms of confusion and speech disturbance which was felt to be TIA like symptoms. This resolved quickly, brain imaging was negative. Blood work showed hemoglobin less than 7 gram/dL and a large hematoma in the left shoulder area. He underwent shoulder surgery in [facility] about 2 weeks ago. He has been on warfarin for nearly 30 years for atrial fibrillation as well as aortic valve replacement. He was taken off warfarin 5 days before procedure and he was on Lovenox for bridging. After surgery, he was started on warfarin 7.5 mg along with Lovenox 100 mg b.i.d.. He was on this until day of admission when he came to [facility] with weakness and transient mental status changes. His INR was supratherapeutic, warfarin stopped. He received 3 units blood transfusion for anemia. Interval History Interval history: Patient is feeling a lot better. Swelling and pain in the left shoulder has decreased. He denies any new symptoms and is hoping to go to rehab today. Review of Systems - Constitutional Reports as per HPI, Reports malaise - Cardiovascular Reports no additional cardiovascular complaints - Respiratory Reports no additional respiratory complaints - Gastrointestinal Reports no additional gastrointestinal complaints - Neurologic Reports abnormal speech [facility] Medical History: Medical History (Last Reviewed 11/04/22 @ 14:00 by Princess Sargent, PT) Atrial fibrillation BPH (benign prostatic hyperplasia) Essential hypertension Hyperlipidemia Pacemaker Surgical History: Surgical History (Last Reviewed 11/04/22 @ 14:00 by Princess Sargent, MINESH) H/O aortic valve replacement Social History: Social History (Last Reviewed 11/02/22 @ 23:34 by Nicolás Duron MD) Living Situation History: Household Members: Spouse Housing: House Do you presently have visiting nurse or other home services: No Tobacco History: Patient Tobacco Use Status: Never used Tobacco e-Cigarette/Vaping Use: Never Used Second Hand Smoke Exposure: No Advance Directives: Advance Directives Date on File: 11/03/22 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 Assessmet: 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: Yes Current occupational status: retired Home Medications and Allergies Current Medications: Current Medications Acetaminophen (Acetaminophen 325 Mg Tablet) 650 mg PO Q6H PRN PRN Reason: Pain, Mild (Pain Scale 1-3) Last Admin: 11/06/22 08:42 Dose: 650 mg Aspirin (Aspirin Enteric Coated 81 Mg Tablet.) 81 mg PO DAILY [facility] Last Admin: 11/06/22 08:41 Dose: 81 mg Bisoprolol Fumarate (Bisoprolol Fumarate 5 Mg Tablet) 5 mg PO BID [facility] Last Admin: 11/06/22 08:42 Dose: 5 mg Digoxin (Digoxin 0.125 Mg Tablet) 0.125 mg PO DAILY [facility] Last Admin: 11/06/22 08:41 Dose: 0.125 mg Enoxaparin Sodium (Enoxaparin Sodium 60 Mg/0.6 Ml Syringe) 50 mg SUBCUT Q12H [facility] Last Admin: 11/06/22 00:33 Dose: 50 mg Ferrous Sulfate (Ferrous Sulfate 324 Mg Tablet.) 325 mg PO DAILY [facility] Last Admin: 11/06/22 08:41 Dose: 325 mg Latanoprost (Latanoprost 0.005 % Ophth Charley 2.5 Ml Drops) 1 drop EYE-BOTH BEDTIME [facility] Last Admin: 11/05/22 21:32 Dose: 1 drop Melatonin (Melatonin 3 Mg Tablet) 6 mg PO BEDTIME PRN PRN Reason: Insomnia Last Admin: 11/05/22 21:31 Dose: 6 mg Morphine Sulfate (Morphine Sulfate 4 Mg/Ml Cartridge) 4 mg IVPUSH Q4H PRN; Protocol PRN Reason: Pain, Severe (Pain Scale 7-10) Last Admin: 11/03/22 04:29 Dose: 4 mg Omeprazole (Omeprazole 20 Mg Capsule.) 20 mg PO DAILY@0630 [facility] Last Admin: 11/06/22 05:37 Dose: 20 mg Ondansetron HCl (Ondansetron Hcl 4 Mg/2 Ml Vial) 4 mg IVPUSH Q8H PRN PRN Reason: Nausea and Vomiting Last Admin: 11/03/22 00:25 Dose: 4 mg Oxycodone HCl (Oxycodone Hcl Immed Release 5 Mg Tablet) 5 mg PO Q6H PRN PRN Reason: Pain, Severe (Pain Scale 7-10) Last Admin: 11/05/22 23:10 Dose: 5 mg Pharmacy Consult (Consult Rx Perform Med Rec) 1 each MISCELLANE ONCE PRN PRN Reason: Consult order Sodium Chloride (0.9 % Sodium Chloride Flush 3 Ml Syringe) 3 ml IVFLUSH QSHIFT [facility] Last Admin: 11/06/22 08:42 Dose: 3 ml Tamsulosin HCl (Tamsulosin Hcl 0.4 Mg Capsule) 0.4 mg PO DAILY [facility] Last Admin: 11/06/22 08:42 Dose: 0.4 mg Valsartan (Valsartan 80 Mg Tablet) 80 mg PO DAILY [facility]; Protocol Last Admin: 11/06/22 08:41 Dose: 80 mg Warfarin Sodium (Warfarin Sodium 5 Mg Tablet) 5 mg PO DAILY@1800 [facility] Last Admin: 11/05/22 17:09 Dose: 5 mg Home Medications Medication Instructions Recorded Confirmed Type alirocumab 150 mg/mL subcutaneous 150 mg subcut Q2W 11/02/22 11/02/22 History pen injector (Praluent Pen) aspirin 81 mg tablet,delayed 81 mg PO DAILY 11/02/22 11/02/22 History release bisoprolol fumarate 5 mg tablet 5 mg PO BID 11/02/22 11/02/22 History digoxin 125 mcg (0.125 mg) tablet 1 tab PO DAILY 11/02/22 11/02/22 History lansoprazole 30 mg capsule,delayed 30 mg PO DAILY 11/02/22 11/02/22 History release latanoprost 0.005 % eye drops 1 drp ophthalmic (eye) BEDTIME 11/02/22 11/02/22 History tamsulosin 0.4 mg capsule 1 cap PO DAILY 11/02/22 11/02/22 History valsartan 80 mg tablet 1 tab PO DAILY 11/02/22 11/02/22 History warfarin 5 mg tablet 5 mg PO Q2D 11/02/22 11/02/22 History warfarin 5 mg tablet 7.5 mg PO Q2D 11/02/22 11/02/22 History Allergies Allergy/AdvReac Type Severity Reaction Status Date / Time No Known Allergies Allergy Verified 11/02/22 20:07 Exam Vital signs: Vital Signs Temp 97.8 F 11/06/22 07:00 Pulse 65 11/06/22 11:01 Resp 18 11/06/22 07:00 BP 130/61 11/06/22 11:01 Pulse Ox 98 11/06/22 11:01 O2 Del Method 11/06/22 07:00 O2 Flow Rate 2 11/06/22 03:01 Intake & Output 11/05/22 11/06/22 11/06/22 18:59 06:59 18:59 Intake Total 670 / 1390 720 / 1390 Output Total 300 / 300 Balance 370 / 1090 720 / 1090 Urine Output (Average ml/kg/hr) 0.26 0.26 Intake: Intake, Oral Amount 320 / 1040 720 / 1040 Intake (Blood Product) Amount 350 / 350 Red Blood Cells (E0382) Unit 350 / 350 [id number] Output: Output, Urine Amount 300 / 300 Other: Meal Refused No NPO No Breakfast % Eaten 100% Lunch % Eaten 100% Dinner % Eaten 100% Number of Unmeasured Voids 2 Number of Bowel Movements 0 Urine Bathroom Urine Color Yellow Last Bowel Movement 11/05/22 Stool Bathroom Stool Amount Scant Weight 95.254 kg BMI result Body Mass Index 28.5 - Constitutional Present: no acute distress - Routine HEENT Exam Head: Present: normal inspection - Routine Chest/Breast/Axilla Exam Chest wall: Present: mass - Routine Respiratory Exam Present: CTAB - Routine Cardiovascular Exam Cardiovascular: Present: S1, S2 - Routine Abdominal Exam Present: soft - Routine Extremities Exam Absent: pedal edema Data - Labs CBC & Chem 7: 11/05/22 06:20 11/04/22 13:37 Labs: 11/02/22 20:21 CT head/brain wo IV con Stat 11/02/22 20:22 ECG 12 lead EKG Stat EKG Documentation DIRECTED CXR [XR chest 1V] Stat 11/02/22 21:00 Basic Metabolic Panel Stat Complete Blood Count Auto Diff Stat Liver Panel Stat PT with INR [Prothrombin Time INR] Stat Troponin-I High Sensitivity Stat 11/02/22 21:33 PRBC [Red Blood Cells] Stat Type and Screen Stat Occult Blood, Stool x1 [OBSX1] Stat 11/02/22 22:33 HYDROmorphone HCl [Dilaudid] 0.25 mg IVPUSH ONCE ONE 11/02/22 22:43 COVID-19 ID NOW ([facility]) Stat 11/02/22 23:03 CT abdomen pelvis wo IV con Stat CT chest wo IV con Stat 11/02/22 23:16 Admission Assessment - Modified NOW Cont. Telemetry w/Vital Sign limit Q4HR 11/02/22 23:39 0.9 % Sodium Chloride [Ns] 500 ml IV 500 mls/hr 11/03/22 Urine Culture Routine 11/03/22 00:41 UA ClnCatch+Micro w/rflx Cult Stat 11/03/22 05:26 Basic Metabolic Panel AM Complete Blood Count Auto Diff AM Prothrombin Time INR DAILY@0600 11/03/22 11:18 Hemoglobin and Hematocrit Routine 11/04/22 08:13 Complete Blood Count no Diff Routine PT with INR [Prothrombin Time INR] Routine 11/04/22 13:37 Comprehensive Met. Panel Stat Fibrinogen Stat Partial Thromboplastin Time Stat 11/04/22 14:30 Warfarin Sodium [Coumadin] 3 mg PO ONCE ONE 11/04/22 22:37 UA ClnCatch+Micro w/rflx Cult Stat 11/05/22 06:20 CBC NO DIFF [Complete Blood Count no Diff] Routine Prothrombin Time INR DAILY@0600 11/05/22 21:26 polyethylene glycoL 3350 [Miralax] 17 gm PO ONCE ONE 11/06/22 06:04 Prothrombin Time INR DAILY@0600 Laboratory Last Values WBC 10.8 X10*3/uL (4.8-10.8) 11/05/22 06:20 RBC 2.44 X10*6/uL (4.60-5.80) L 11/05/22 06:20 Hgb 7.7 g/dl (14.0-18.0) L 11/05/22 06:20 Hct 24.0 % (42.0-52.0) L 11/05/22 06:20 MCV 98.4 fL (80.0-98.0) H 11/05/22 06:20 MCH 31.6 pg (27.0-33.0) 11/05/22 06:20 MCHC 32.1 g/dl (31.0-36.0) 11/05/22 06:20 RDW 15.6 % (11.0-16.0) 11/05/22 06:20 Plt Count 445 X10*3/uL (160-400) H 11/05/22 06:20 MPV 9.4 fL (9.4-12.4) 11/05/22 06:20 Immature Gran % (Auto) 1.2 % (0.0-0.4) H 11/03/22 05:26 Neut % (Auto) 81.9 % (45-73) H 11/03/22 05:26 Lymph % (Auto) 5.8 % (20-40) L 11/03/22 05:26 [place] % (Auto) 10.3 % (2-11) 11/03/22 05:26 Eos % (Auto) 0.6 % (0-4) 11/03/22 05:26 Baso % (Auto) 0.2 % (0-2) 11/03/22 05:26 Lymph # (Auto) 0.8 X10*3/uL (1.2-4.9) L 11/03/22 05:26 [place] # (Auto) 1.4 X10*3/uL (0.1-1.2) H 11/03/22 05:26 Eos # (Auto) 0.1 X10*3/uL (0.0-0.4) 11/03/22 05:26 Baso # (Auto) 0.0 X10*3/uL (0.0-0.2) 11/03/22 05:26 Abs Immat Gran (auto) 0.16 X10*3/uL (0.00-0.03) H 11/03/22 05:26 Absolute Neuts (auto) 11.4 x10*3/uL (2.0-8.3) H 11/03/22 05:26 Absolute Nucleated RBC 0.000 X10*3/uL (0.0-0.012) 11/05/22 06:20 Nucleated RBC % (auto) 0.0 /100WBC (0.0-0.2) 11/05/22 06:20 PT 16.4 SEC (10.0-13.1) H 11/06/22 06:04 INR 1.4 (0.9-1.1) H 11/06/22 06:04 APTT 30.6 SEC (26.0-36.4) 11/04/22 13:37 Fibrinogen > 700 MG/DL (259-690) H 11/04/22 13:37 Sodium 130 mmol/L (135-145) L 11/04/22 13:37 Potassium 4.1 mmol/L (3.3-5.1) 11/04/22 13:37 Chloride 99 mmol/L (96-108) 11/04/22 13:37 Carbon Dioxide 25 mmol/L (22-29) 11/04/22 13:37 Anion Gap 10 (12-20) L 11/04/22 13:37 BUN 15 mg/dL (9-16) 11/04/22 13:37 Creatinine 0.71 mg/dL (0.5-1.4) 11/04/22 13:37 Estim Creat Clear Calc 104.3 11/04/22 13:37 Estimated GFR > 60 11/04/22 13:37 Random Glucose 123 mg/dL (60-115) H 11/04/22 13:37 Calcium 7.6 mg/dL (8.4-10.2) L 11/04/22 13:37 Total Bilirubin 2.6 mg/dL (0.0-1.0) H 11/04/22 13:37 Direct Bilirubin 1.0 mg/dL (0.0-0.5) H 11/02/22 21:00 AST 49 U/L (5-37) H 11/04/22 13:37 ALT 26 U/L (0-40) 11/04/22 13:37 Alkaline Phosphatase 84 U/L (39-117) 11/04/22 13:37 Troponin I High Sens 48.5 ng/L (<3.5-35.0) H 11/02/22 21:00 Total Protein 4.7 g/dL (6.5-8.0) L 11/04/22 13:37 Albumin 2.6 g/dL (3.5-5.0) L 11/04/22 13:37 Urine Color Dark Yellow 11/04/22 22:37 Urine Appearance Clear 11/04/22 22:37 Urine pH 5.5 (5.0-9.0) 11/04/22 22:37 Ur Specific [place] 1.025 (1.005-1.025) 11/04/22 22:37 Urine Protein Trace mg/dL (Neg-Trace) 11/04/22 22:37 Urine Glucose (UA) Negative mg/dL (Negative) 11/04/22 22:37 Urine Ketones Trace mg/dL (Negative) 11/04/22 22:37 Urine Blood Negative (Negative) 11/04/22 22:37 Urine Nitrite Negative (Negative) 11/04/22 22:37 Ur Leukocyte Esterase Trace (Negative) H 11/04/22 22:37 Urine RBC 3-5 /HPF (0-2) H 11/04/22 22:37 Urine WBC 0-5 /HPF (0-5) 11/04/22 22:37 Ur Squamous Epith Cells 0-2 /HPF (0-2) 11/04/22 22:37 Urine Bacteria None Seen (None Seen) 11/04/22 22:37 Hyaline Casts 0-2 /LPF (0-2) 11/04/22 22:37 Stool Occult Blood NEGATIVE (NEGATIVE) 11/02/22 21:33 COVID-19 (LUZ MARINA) Negative (Negative) 11/02/22 22:43 COVID-19 Clin Com See Note 11/02/22 22:43 Blood Type O Positive 11/02/22 21:33 Antibody Screen NEGATIVE 11/02/22 21:33 Crossmatch See Detail 11/02/22 21:33 - Imaging Radiologist's impression: ITS Impressions Chest X-Ray 11/02/22 20:40 IMPRESSION: 1. Minimal patchy left upper lobe opacities which could represent atelectasis versus early infiltrates. 2. Mild cardiomegaly. Head CT 11/02/22 22:25 IMPRESSION: No acute intracranial pathology. Abdomen/Pelvis CT 11/03/22 00:09 IMPRESSION: 2 Large left chest wall hematomas. Other incidental findings as described above. Fleischner guidelines were followed. Chest CT 11/03/22 00:09 IMPRESSION: 2 Large left chest wall hematomas. Other incidental findings as described above. Fleischner guidelines were followed. Assessment and Plan Patient Active problem list reviewed?: Yes (1) Acute blood loss anemia Status: Acute Assessment and plan: 1. This is a pleasant 77-year-old male with history of atrial fibrillation, status post aortic valve replacement, on chronic warfarin presenting with large left chest wall hematoma in the postoperative setting. On presentation, hemoglobin was down to 6.3 gram/dL which is probably related to blood loss secondary to hematoma. There is no previous recent H&H to compare. However, he was not told of anemia in the past and he underwent shoulder surgery at [facility] about [address] chest performed 11/03/2022 shows a large left chest wall hematoma measuring 14.7 x 15.7 x 9.4 cm, 2nd hematoma in front of left scapula measuring 12.1 x 4.9 x 8.8 cm. Her left shoulder prosthesis is present, median sternotomy and CABG. He has received 3 units PRBC. On admission his INR was 3.4, warfarin has been on hold and his INR gradually declined to 1.8 on 11/04/2022. Cause of hematoma is most likely postoperative use of warfarin and Lovenox. He was receiving Lovenox 100 mg b.i.d. along with 7.5 mg of warfarin, INR monitoring was done at home by visiting nurses. He has been started on warfarin, increase dose to 7.5 mg today. He is on bridging low-dose Lovenox 50 mg b.i.d., this can be stopped when INR is 2. H&H decreased slightly yesterday, he received 3rd unit of blood. On exam size of hematoma appears to be stable to slightly decreased. - Time Spent With Patient Time Spent with Patient (in minutes): 10
[2022-11-06] MEDS: oxyCODONE HCl Immed Release 5 MG TABLET PO ×2 (15:03→21:02)
[2022-11-06] MEDS: Docusate Sodium 100 MG CAPSULE PO ×2 (15:03→21:03)
[2022-11-06 15:07] VITALS: BP 139/62; PULSE 70; RESP 17; TEMP 36.5; O2SAT 97
[2022-11-06] MEDS: polyethylene glycoL 3350 17 GM POWD.PACK PO (17:11)
[2022-11-06] MEDS: Warfarin Sodium 7.5 MG TABLET PO (17:11)
[2022-11-06 19:22] VITALS: BP 134/60; PULSE 70; RESP 17; TEMP 36.6; O2SAT 97
[2022-11-06] MEDS: Latanoprost 0.005 % Ophth Sol 2.5 ML DROPS 1 DROP EYE-BOTH (21:02)
[2022-11-06] MEDS: Escitalopram Oxalate 10 MG TABLET PO (21:02)
[2022-11-06 23:28] VITALS: BP 143/64; PULSE 71; RESP 18; TEMP 36.6; O2SAT 96
[2022-11-07] MEDS: Enoxaparin Sodium 60 MG/0.6 ML SYRINGE 50 MG SUBCUT ×2 (00:33→13:43)
[2022-11-07] MEDS: 0.9 % Sodium Chloride Flush 3 ML SYRINGE IVFLUSH ×2 (00:33→10:38)
[2022-11-07 04:00] VITALS: BP 160/67; PULSE 70; RESP 18; TEMP 36.8; O2SAT 96
[2022-11-07] MEDS: oxyCODONE HCl Immed Release 5 MG TABLET PO ×2 (04:26→10:39)
[2022-11-07] MEDS: Milk of Magnesia 30 ML ORAL.SUSP PO (04:31)
[2022-11-07] MEDS: Omeprazole 20 MG CAPSULE.DR PO (05:43)
[2022-11-07 08:00] VITALS: BP 160/73; PULSE 70; RESP 18; TEMP 35.7; O2SAT 97
[2022-11-07 08:56] LABS: Hematocrit 26.8 % (42.0-52.0); Hemoglobin 8.8 g/dl (14.0-18.0); Mean Corpuscular HGB Conc 32.8 g/dl (31.0-36.0); Mean Corpuscular Volume 97.5 fL (80.0-98.0); Mean Platelet Volume 8.7 fL (9.4-12.4); Platelet Count 431 X10*3/uL (160-400); Red Blood Count 2.75 X10*6/uL (4.60-5.80); Red Cell Distribution Width 15.6 % (11.0-16.0); White Blood Count 7.7 X10*3/uL (4.8-10.8)
[2022-11-07 09:01] LABS: INTERNATIONAL NORM RATIO 1.4 (0.9-1.1); Prothrombin Time 16.3 SEC (10.0-13.1)
[2022-11-07] MEDS: Tamsulosin HCL 0.4 MG CAPSULE PO (10:38)
[2022-11-07] MEDS: Docusate Sodium 100 MG CAPSULE PO (10:38)
[2022-11-07] MEDS: Ferrous Sulfate 324 MG TABLET.DR 325 MG PO (10:38)
[2022-11-07] MEDS: Aspirin Enteric Coated 81 MG TABLET.DR PO (10:38)
[2022-11-07] MEDS: Digoxin 0.125 MG TABLET PO (10:39)
[2022-11-07] MEDS: Bisoprolol Fumarate 5 MG TABLET PO (10:39)
[2022-11-07] MEDS: Valsartan 80 MG TABLET PO (10:39)
[2022-11-07 10:53] VITALS: BP 144/66; PULSE 70; RESP 18
--- NOTE | 2022-11-07 10:55 | P.DS_ITS ---
DS: Providers Provider Date of Service: 11/07/22 Date of admission: 11/02/22 23:16 Primary care physician: Cindy Ramirez MD Consults: 11/02/22 23:18 Consult to Neurology Routine Consulting Provider: [facility] Reason for consultation: Speech deficit 11/04/22 09:54 Consult to Hematology / Oncology Routine Consulting Provider: Shannen Jorge Reason for consultation: anemia, bleeding issues and anticoagulation issues DS: Diagnosis Discharge Diagnosis (1) Atrial fibrillation: Status: Acute (2) Chest wall hematoma: Status: Acute (3) Acute blood loss anemia: Status: Acute DS: Summary Hospital Course Hospital Course: Chief Complaint: Speech deficit This is a 77-year-old male with pertinent history of aortic stenosis status post valve replacement on Coumadin, atrial fibrillation status post pacemaker, BPH, essential hypertension, mixed hyperlipidemia, gastroesophageal reflux disease who presents to the emergency department for evaluation of abnormal speech.? Patient states it was sudden onset on the day of presentation.? States he could not find words and son at bedside states that his speech was mumbled.? It lasted for about 2 hours and resolved.? No blurring of vision, extremity weakness, facial droop or similar complaints in the past.? Patient had shoulder surgery about 2 weeks ago at [facility].? He has noticed progressively worsening of hematoma at the site of shoulder surgery.? He saw his orthopedic surgeon who recommended conservative management of the hematoma.? Patient denies fever, chills, chest discomfort, palpitations, shortness of breath, abdominal pain, changes in urinary or bowel habits. Hospital course: Essentially pt has history of AFIB and aortic valve replacement and has been on coumadin nearly 30 years, 2 weeks ago he had a left shoulder surgery and was bridged with Lovenox 100 mg twice a day before and after the surgery and he developped a large left chest wall ehmatoma. He presented to the hospital due to acute speech consistent with TIA, work up was negative with head imaging, MRI was not done due to pacemaker. He was noted to have signfianct anemia with hemoglobin of 6.3 no evidence of GI bleeding. INR was supratherapeutic at that bianca at 3.4 and so coumadin was on hold, on 11/03 INR 2.7, 11/04 1.8, coumadin was restarted at 3 but the next day INR dropped to 1.5, coumadin was increased to 5 but still the next day INR was 1.4, coumadin dose was increased to 7.5 mg and today INR is 1.5, will continue coumadin at 7.5 mg daily and continue briding with lovenox 50 mg twice daily until INR is 2 to 3. Patient has been followed by hematoligist Dr. Jorge for management of coumadin and Lovenox and can reach to her office for dose adjustment advise #. s/p aortic valve replacement:? to continue anticoagulation as stated above ?# abnormal speech, resolved: ?TIA .? Unable to obtain MRI as patient has pacemaker.? --seen by Neuro with the following recommendations: Recommendation as soon as it is considered safe in terms of his hematoma that it is not growing, he should be restarted on anticoagulation which can initially be in the form of a heparin bridge for the first week and then assuming the hematoma stable, he can be restarted on Coumadin.? MRI was not done because of pacemaker. He has not had any further episode ?# Acute blood loss anemia from ?Large left chest wall hematomas as seen on CT. :? Stool guaiac negative in the ER.? Patient denies hematemesis, hematuria, melena or hematochezia.? Transfused? 1 unit PRBC in the ED on 11/02/22 with increased in h/h, Ortho recommends conservative managemet. Transfuse a second unit on 11/05, total 2, repeat h/h today 11/07 is 8.8/26.8 ?#.? Reactive leukocytosis: No antibitics used, now resolved ?#. elevated troponin:? Likely due to increased demand, ? #.? BPH on Flomax ?#. essential hypertension:? Continue home antihypertensives ?#. atrial fibrillation:? Status post pacemaker. continue naticoagulation, digoxin, and beta prem Time Spent with Patient Time attestation: Total time managing care of this patient today ____ minutes. Discharge coordination time: Greater than 30 minutes Quality: Safe Use of Opioids Does Pt have an Active Cancer Diagnosis on the Problem List?: No Quality: Stroke Does the patient have a stroke diagnosis?: No Physical Exam Vital Signs: Vital Signs: Last Vital Signs Temp 96.3 F L 11/07/22 08:00 Pulse 70 11/07/22 08:00 Resp 18 11/07/22 08:00 BP 160/73 H 11/07/22 08:00 Pulse Ox 97 11/07/22 08:00 O2 Del Method 11/07/22 08:00 O2 Flow Rate 2 11/06/22 03:01 BMI result Body Mass Index 28.5 Const: Other: General: AO X 3, no acute distress Resp: CTA bilateral CVS: S1,S2,RRR GI: +BS, NT, no distention Skin: No large chest wall palpable hematoma with brusing extending to axilla Neuro: motor grossly intact Psych: appropriate affect DS: Data Data Completed and Pending Labs on day of discharge: Laboratory Results - last 24 hr 11/07/22 11/07/22 08:46 08:46 WBC 7.7 RBC 2.75 L Hgb 8.8 L Hct 26.8 L MCV 97.5 MCH 32.0 MCHC 32.8 RDW 15.6 Plt Count 431 H MPV 8.7 L Absolute Nucleated RBC 0.000 Nucleated RBC % (auto) 0.0 PT 16.3 H INR 1.4 H Discharge Plan Discharge Anticipated Discharge Date/Time: 11/07/22 10:43 Patient Disposition: Xfer SNF Discharge Diagnosis: Acute blood loss anemia, chest wall hematoma, subtherapeutic INR Referrals: Cindy Ramirez MD [Primary Care Provider] - 1 Week Discharge Medications: New enoxaparin 60 mg/0.6 mL Syringe 50 mg subcut Q12H 4 Days Qty: 4 0RF Rx Instructions: Stop when INR is 2 to 3 Continued latanoprost 0.005 % drops 1 drp ophthalmic (eye) BEDTIME valsartan 80 mg tablet 1 tab PO DAILY aspirin 81 mg Tablet,Delayed Release (Dr/Ec) 81 mg PO DAILY bisoprolol fumarate 5 mg tablet 5 mg PO BID tamsulosin 0.4 mg capsule 1 cap PO DAILY lansoprazole 30 mg Capsule,Delayed Release(Dr/Ec) 30 mg PO DAILY digoxin 125 mcg (0.125 mg) tablet 1 tab PO DAILY Praluent Pen 150 mg/mL pen injector 150 mg subcut Q2W Changed warfarin 5 mg tablet 7.5 mg PO DAILY Qty: 30 0RF Discontinued warfarin 5 mg tablet 5 mg PO Q2D Rx Instructions: 5mg and 7.5mg alternating daily Discharge Orders: Discharge Order (Routine); Ordered 11/07/22 Ordered By: Ari Levin Diet: Advance to usual diet Activity on Discharge: As tolerated Stand Alone Forms: Patient Portal Discharge page Care Plan Goals: Resolution of anemia, chest wall hematoma, prevention of TIA Health Concerns: Chest wall hematoma, acute blood loss anemia TIA Subtherapeutic INR Plan of Treatment: Continue coumadin at 7.5 mg daily with goal of INR 2 to 3 Continue Lovenox 50 mg twice daily until INR is 2 to 3 for a day INR today 1.4 (11/07/22) Check INR daily Check cbc 1 to 2 a week, until stable Please reach out to Dr. Jorge's office for advise on dose adjustment if needed at [phone] Assessment: As above
--- NOTE | 2022-11-07 11:46 | MHC.CM.PN ---
Addendum entered by Adrianna Anthony 11/07/22 16:22: PTS RN CALLED [facility] TO PROVIDE REPORT THEY INFORMED HER THEY WERE NOT EXPECTING AN ADMISSION CM CALLED AND SPOKE WITH NURSE, DAVID, WHO REPORTS SHE DID NOT KNOW THE PT WAS COMING CM INFORMED HER THE PT WAS ACCEPTED YESTERDAY AND A PLAN WAS MADE, AT THEIR LIAISONS REQUEST, TO SET PT UP FOR TRANSPORT TODAY. CM ALSO INFORMED HER THE WEEKEND USER FOR [facility] ADMISSIONS HAD CONTACTED T/W THIS MORNING TO CONFIRM PT WOULD COME TODAY DAVID REPORTS SHE IS TRYING TO REACH SOMEONE AND PT WILL HAVE TO WAIT OUTSIDE OF UNIT UNTIL THEY STRAIGHTEN IT OUT, OR WILL HAVE TO RETURN TO [facility]. PT HAS ALREADY LEFT UNIT CM LEFT ANOTHER MESSAGE FOR THE WEEKEND COVERAGE AT [facility] REQUESTING THEY CONTACT THIS RN TO PROVIDE PT INFO Original Note: PT WILL DC TODAY TO [facility] AT 1400 HOURS CM MET WITH PT AND DAUGHTER, SECOND IMM DELIVERED, BOTH AGREEABLE TO DC.
[2022-11-07 12:00] VITALS: TEMP 36.4
== END 2022-11-07 17:56 | disposition skilled nursing facility (03) | DRG 813 ==
LOC: HO.ED 21:58 → HO.EDOVER 11-03 05:30 → HO.S3 11-03 14:05
PROVIDERS: Internal Medicine; Admitting Provider Student in an Organized Health Care Education/Training Program; Emergency Provider Emergency Medicine Emergency Medical Services; PCP Internal Medicine; Visit Provider Internal Medicine
DX: D68.32 Hemorrhagic disorder due to extrinsic circulating anticoagulants (principal); G45.9 Transient cerebral ischemic attack, unspecified; D62 Acute posthemorrhagic anemia; I24.8 Other forms of acute ischemic heart disease; M96.840 Postprocedural hematoma of a musculoskeletal structure following a musculoskeletal system procedure; N40.0 Benign prostatic hyperplasia without lower urinary tract symptoms; E78.2 Mixed hyperlipidemia; D72.829 Elevated white blood cell count, unspecified; Y83.8 Other surgical procedures as the cause of abnormal reaction of the patient, or of later complication, without mention of misadventure at the time of the procedure; Z20.822 Contact with and (suspected) exposure to COVID-19; Z95.0 Presence of cardiac pacemaker; Z95.2 Presence of prosthetic heart valve; Z79.01 Long term (current) use of anticoagulants; Z79.82 Long term (current) use of aspirin; Z79.899 Other long term (current) drug therapy
CPT/HCPCS: 36415; 70450; 71045; 71250; 74176; 80048; 80053; 80076; 81001; 82272; 84484; 85014; 85018; 85025; 85027; 85384; 85610; 85730; 86850; 86900; 86901; 86923; 87086; 87635; 93005; 94660; 97116; 97162; 97530; 99221; 99285; J1170; J1650; J2270; J2405; P9016

== ENCOUNTER 2024-05-01 08:17 | Day surgery (SDC) | payer MEDICARE, OTHER, SELFPAY ==
[2024-04-20 13:59] VITALS: BMI 25.8
--- NOTE | 2024-04-27 14:23 | HO.ANESPROP2 ---
HPI - Anesthesia Eval Consult details Narrative: 78yo M for Right Cataract Extraction IOL Insertion No previous cataract on record Pacer in situ Coumadin for afib PMFSH Active Problems Active Problems: All Active Problems Acute blood loss anemia (Acute) Chest wall hematoma (Acute) Anemia (Acute) BPH (benign prostatic hyperplasia) (Acute) Hyperlipidemia (Acute) H/O aortic valve replacement (Acute) Pacemaker (Acute) Essential hypertension (Acute) Past Medical History Medical History History of blood transfusion (~10/2022) TIA (transient ischemic attack) CAD (coronary artery disease) Cataracts, bilateral Anemia Hx of cardiac pacemaker Atrial fibrillation BPH (benign prostatic hyperplasia) Hyperlipidemia Pacemaker Essential hypertension Surgical History Surgical History History of heart artery stent Hx of colonoscopy History of arthroscopy of left shoulder History of total replacement of left shoulder joint (~10/2022) H/O aortic valve replacement Social History Social History Household Members: Spouse Housing: House Are you a primary resident care assistant to a significant other at home: No Do you presently have visiting nurse or other home services: No Alcohol intake: current Alcohol intake frequency: holidays/special occasions only Patient Tobacco Use Status: Former Tobacco user Tobacco use type: Cigarette Smoked in Last 30 Days: No e-Cigarette/Vaping Use: Never Used Second Hand Smoke Exposure: No Use of substances other than those prescribed or required for medical reasons: No Have you been hit, kicked, punched, or otherwise hurt by someone within the past year? If so, by whom?: No Are you DNR?: No Advance Directives: Yes Advance Directives Information Provided: No Advance Directives on File: Yes Advance Directives Date on File: 11/03/22 Recently lost weight without trying: No Nutrition Risks: Surgical patient >75years Poor oral hygiene: No service: Yes Current occupational status: retired Meds Allergies Allergy/AdvReac Type Severity Reaction Status Date / Time [id number] Reductase AdvReac Gastrointestinal Verified 05/01/24 09:17 Inhibitor Upset Home Medications ?Medication ?Instructions ?Recorded ?Confirmed ?Last Taken ?Type alirocumab 150 mg/mL subcutaneous 150 mg subcut Q2W 11/02/22 04/20/24 Unknown History pen injector (Praluent Pen) aspirin 81 mg tablet,delayed 81 mg PO DAILY 11/02/22 05/01/24 04/30/24 History release digoxin 125 mcg (0.125 mg) tablet 1 tab PO BEDTIME 11/02/22 05/01/24 04/30/24 History lansoprazole 30 mg capsule,delayed 30 mg PO DAILY 11/02/22 05/01/24 04/30/24 History release latanoprost 0.005 % eye drops 1 drp ophthalmic (eye) BEDTIME 11/02/22 05/01/24 04/30/24 History tamsulosin 0.4 mg capsule 1 cap PO DAILY 11/02/22 05/01/24 04/30/24 History empagliflozin 10 mg tablet 10 mg PO DAILY 04/20/24 05/01/24 04/27/24 History (Jardiance) sacubitril 24 mg-valsartan 26 mg 1 tab PO BID 04/20/24 05/01/24 04/30/24 History tablet (Entresto) spironolactone 25 mg tablet 25 mg PO DAILY 04/20/24 05/01/24 04/30/24 History Exam Height,Weight and Vital Signs: Height 6 ft Weight 86.183 kg Assessment and Plan Assessment Anesthesia Assessment: Chart Reviewed
[2024-05-01] MEDS: Tetracaine HCl/PF 0.5% Oph Sol 4 ML DROPS 1 DROP EYE-RIGHT (09:07)
[2024-05-01] MEDS: Cyclopentolate 1 % Ophth Sol 2 ML DRPBTL 1 DROP EYE-RIGHT ×3 (09:08→09:24)
[2024-05-01] MEDS: Tropicamide 1 % Ophth Sol 3 ML BTL 1 DROP EYE-RIGHT ×3 (09:10→09:26)
[2024-05-01] MEDS: Ketorolac Tromethamine 0.5% Op 10 ML DROPS 1 DROP EYE-RIGHT ×3 (09:12→09:28)
[2024-05-01] MEDS: Phenylephrine HCL 2.5% Oph SoL 2 ML BOTTLE 1 DROP EYE-RIGHT ×3 (09:14→09:30)
[2024-05-01 09:19] LABS: Glucose, Whole Blood 94 mg/dL (60-115)
[2024-05-01 09:23] VITALS: BP 152/76; PULSE 60; RESP 16; TEMP 36.2; O2SAT 97
[2024-05-01] MEDS: Lactated Ringers 500 ML 50 ML IV (09:30)
--- NOTE | 2024-05-01 09:46 | P.CONAN_ITS ---
[facility] Active Problems Active Problems: All Active Problems Acute blood loss anemia (Acute) Chest wall hematoma (Acute) Anemia (Acute) BPH (benign prostatic hyperplasia) (Acute) Hyperlipidemia (Acute) H/O aortic valve replacement (Acute) Pacemaker (Acute) Essential hypertension (Acute) Past Medical History Medical History History of blood transfusion (~10/2022) TIA (transient ischemic attack) CAD (coronary artery disease) Cataracts, bilateral Anemia Hx of cardiac pacemaker Atrial fibrillation BPH (benign prostatic hyperplasia) Hyperlipidemia Pacemaker Essential hypertension Functional capacity: independent ambulation Family History Family history of problems with anesthesia: No Surgical History Surgical History History of heart artery stent Hx of colonoscopy History of arthroscopy of left shoulder History of total replacement of left shoulder joint (~10/2022) H/O aortic valve replacement History of Problems with Anesthesia: No Social History Social History Household Members: Spouse Housing: House Are you a primary care program director to a significant other at home: No Do you presently have visiting nurse or other home services: No Alcohol intake: current Alcohol intake frequency: holidays/special occasions only Patient Tobacco Use Status: Former Tobacco user Tobacco use type: Cigarette Smoked in Last 30 Days: No e-Cigarette/Vaping Use: Never Used Second Hand Smoke Exposure: No Use of substances other than those prescribed or required for medical reasons: No Have you been hit, kicked, punched, or otherwise hurt by someone within the past year? If so, by whom?: No Are you DNR?: No Advance Directives: Yes Advance Directives Information Provided: No Advance Directives on File: Yes Advance Directives Date on File: 11/03/22 Recently lost weight without trying: No Nutrition Risks: No Nutritional Risk Poor oral hygiene: No service: Yes Current occupational status: retired Meds Allergies Allergy/AdvReac Type Severity Reaction Status Date / Time [id number] Reductase AdvReac Gastrointestinal Verified 05/01/24 09:17 Inhibitor Upset Active Medications: Current Medications Lactated Ringer's (Lr) 500 mls @ 50 mls/hr IV .Q10H JENNIFER Stop: 05/01/24 18:44 Last Admin: 05/01/24 09:30 Dose: 50 mls/hr Povidone Iodine (Povidone Iodine 5 % Ophth Soln 30 Ml Bottle) 1 appl EYE-RIGHT PREOP PRN PRN Reason: Pre-Op Surgical Implant Prophy Home Medications ?Medication ?Instructions ?Recorded ?Confirmed ?Last Taken ?Type alirocumab 150 mg/mL subcutaneous 150 mg subcut Q2W 11/02/22 04/20/24 Unknown History pen injector (Praluent Pen) aspirin 81 mg tablet,delayed 81 mg PO DAILY 11/02/22 05/01/24 04/30/24 History release digoxin 125 mcg (0.125 mg) tablet 1 tab PO BEDTIME 11/02/22 05/01/24 04/30/24 History lansoprazole 30 mg capsule,delayed 30 mg PO DAILY 11/02/22 05/01/24 04/30/24 History release latanoprost 0.005 % eye drops 1 drp ophthalmic (eye) BEDTIME 11/02/22 05/01/24 04/30/24 History tamsulosin 0.4 mg capsule 1 cap PO DAILY 11/02/22 05/01/24 04/30/24 History empagliflozin 10 mg tablet 10 mg PO DAILY 04/20/24 04/20/24 Unknown History (Jardiance) sacubitril 24 mg-valsartan 26 mg 1 tab PO BID 04/20/24 05/01/24 04/30/24 History tablet (Entresto) spironolactone 25 mg tablet 25 mg PO DAILY 04/20/24 05/01/24 04/30/24 History Exam Height,Weight and Vital Signs: Height 6 ft Weight 86.183 kg Last Vital Signs Temp 97.2 F 05/01/24 09:23 Pulse 60 05/01/24 09:23 Resp 16 05/01/24 09:23 BP 152/76 H 05/01/24 09:23 Pulse Ox 97 05/01/24 09:23 O2 Del Method Room Air 05/01/24 09:23 Pertinent Lab Results Pertinent Lab Results: Laboratory Tests 05/01/24 09:15 POC Glucose 94 Airway Mallampati Class: II TM Dist: >3cm Neck ROM: Full Heart: RRR Lungs: CTA Assessment and Plan Assessment Anesthesia Assessment: Anesthesia Plan Discussed and Chart Reviewed Final Anesthetic Review Family History of Problems with Anesthesia: No History of Problems with Anesthesia: No NPO: Yes ASA Class: III Final Preanesthetic Review: Meds/Wilbertogs Chart Reviewed, Consent Obtained/Reviewed and Anes Risks/Benef Reviewed Patient Risk: Low Procedure Risk: Low Anesthetic Plan Anesthetic Plan: MAC: Disposition: Standard PACU
--- NOTE | 2024-05-01 09:48 | P.CONAN_ITS ---
[facility] Active Problems Active Problems: All Active Problems Acute blood loss anemia (Acute) Chest wall hematoma (Acute) Anemia (Acute) BPH (benign prostatic hyperplasia) (Acute) Hyperlipidemia (Acute) H/O aortic valve replacement (Acute) Pacemaker (Acute) Essential hypertension (Acute) Past Medical History Medical History History of blood transfusion (~10/2022) TIA (transient ischemic attack) CAD (coronary artery disease) Cataracts, bilateral Anemia Hx of cardiac pacemaker Atrial fibrillation BPH (benign prostatic hyperplasia) Hyperlipidemia Pacemaker Essential hypertension Functional capacity: independent ambulation Family History Family history of problems with anesthesia: No Surgical History Surgical History History of heart artery stent Hx of colonoscopy History of arthroscopy of left shoulder History of total replacement of left shoulder joint (~10/2022) H/O aortic valve replacement History of Problems with Anesthesia: No Social History Social History Household Members: Spouse Housing: House Are you a primary senior care specialist to a significant other at home: No Do you presently have visiting nurse or other home services: No Alcohol intake: current Alcohol intake frequency: holidays/special occasions only Patient Tobacco Use Status: Former Tobacco user Tobacco use type: Cigarette Smoked in Last 30 Days: No e-Cigarette/Vaping Use: Never Used Second Hand Smoke Exposure: No Use of substances other than those prescribed or required for medical reasons: No Have you been hit, kicked, punched, or otherwise hurt by someone within the past year? If so, by whom?: No Are you DNR?: No Advance Directives: Yes Advance Directives Information Provided: No Advance Directives on File: Yes Advance Directives Date on File: 11/03/22 Recently lost weight without trying: No Nutrition Risks: No Nutritional Risk Poor oral hygiene: No service: Yes Current occupational status: retired Meds Allergies Allergy/AdvReac Type Severity Reaction Status Date / Time [id number] Reductase AdvReac Gastrointestinal Verified 05/01/24 09:17 Inhibitor Upset Active Medications: Current Medications Lactated Ringer's (Lr) 500 mls @ 50 mls/hr IV .Q10H JENNIFER Stop: 05/01/24 18:44 Last Admin: 05/01/24 09:30 Dose: 50 mls/hr Povidone Iodine (Povidone Iodine 5 % Ophth Soln 30 Ml Bottle) 1 appl EYE-RIGHT PREOP PRN PRN Reason: Pre-Op Surgical Implant Prophy Home Medications ?Medication ?Instructions ?Recorded ?Confirmed ?Last Taken ?Type alirocumab 150 mg/mL subcutaneous 150 mg subcut Q2W 11/02/22 04/20/24 Unknown History pen injector (Praluent Pen) aspirin 81 mg tablet,delayed 81 mg PO DAILY 11/02/22 05/01/24 04/30/24 History release digoxin 125 mcg (0.125 mg) tablet 1 tab PO BEDTIME 11/02/22 05/01/24 04/30/24 History lansoprazole 30 mg capsule,delayed 30 mg PO DAILY 11/02/22 05/01/24 04/30/24 History release latanoprost 0.005 % eye drops 1 drp ophthalmic (eye) BEDTIME 11/02/22 05/01/24 04/30/24 History tamsulosin 0.4 mg capsule 1 cap PO DAILY 11/02/22 05/01/24 04/30/24 History empagliflozin 10 mg tablet 10 mg PO DAILY 04/20/24 04/20/24 Unknown History (Jardiance) sacubitril 24 mg-valsartan 26 mg 1 tab PO BID 04/20/24 05/01/24 04/30/24 History tablet (Entresto) spironolactone 25 mg tablet 25 mg PO DAILY 04/20/24 05/01/24 04/30/24 History Exam Height,Weight and Vital Signs: Height 6 ft Weight 86.183 kg Last Vital Signs Temp 97.2 F 05/01/24 09:23 Pulse 60 05/01/24 09:23 Resp 16 05/01/24 09:23 BP 152/76 H 05/01/24 09:23 Pulse Ox 97 05/01/24 09:23 O2 Del Method Room Air 05/01/24 09:23 Pertinent Lab Results Pertinent Lab Results: Laboratory Tests 05/01/24 09:15 POC Glucose 94 Assessment and Plan Assessment Anesthesia Assessment: Anesthesia Plan Discussed and Chart Reviewed Final Anesthetic Review Family History of Problems with Anesthesia: No History of Problems with Anesthesia: No ASA Class: III Final Preanesthetic Review: Meds/Allgs Chart Reviewed, Consent Obtained/Reviewed and Anes Risks/Benef Reviewed Patient Risk: Intermediate Procedure Risk: Low Anesthetic Plan Anesthetic Plan: MAC: Disposition: Standard PACU
--- NOTE | 2024-05-01 10:34 | MHC.SHP ---
Pre-Procedural Eval Section A - 24 Hr Update-Section A only Date of Service: 05/01/24 The patient is an INPATIENT: No Changes since office visit: No Cold of Flu in the past 2 weeks, No New Medical Problems, No Changes in Medication and No Patient answered all questions The patient has been examined within 24 hours of the surgical procedure. The History & Physical has been completed within 30 days and I have reviewed it.: Yes Section B - Complete if H&P > 30 days Chief Complaint: Age-related nuclear cataract, right eye Allergies: Allergies Allergy/AdvReac Type Severity Reaction Status Date / Time [id number] Reductase AdvReac Gastrointestinal Verified 05/01/24 09:17 Inhibitor Upset Plan Diagnosis/Plan: Unchanged I have reviewed the history and physical and performed a pertinent physical examination on my patient. No changes have occurred unless specified. Time Spent With Patient Time: Total time managing care of this patient today ____ minutes.
--- NOTE | 2024-05-01 10:35 | P.PCNO_ITS ---
Ophthalmology Procedure Procedure Date of Service: 05/01/24 Ophthalmology Viscoelastic: Healon Duet Dual Pack Pro Ophthalmology Lenses: IOL Acrysof MP - [id number] (17) Procedure Notes: PREOPERATIVE DIAGNOSIS: Decreased visual acuity right eye secondary to cataract POSTOPERATIVE DIAGNOSIS: Same PROCEDURE: Right cataract extraction with intraocular lens insertion SURGEON: Uli Diaz M.D. ANESTHESIA: Topical/MAC ESTIMATED BLOOD LOSS: None COMPLICATIONS: None After obtaining informed consent, the patient was brought to the operating room suite and placed in the supine position. After adequate sedation per anesthesia, topical drops of Tetracaine were given to the right eye. The eye was then prepped and draped in the usual sterile fashion. The operating room microscope was then positioned over the operative eye and a lid speculum placed. A paracentesis was created. Viscoelastic was then instilled into the anterior chamber. A three plane incision was then created temporally, utilizing a 2.85 mm keratome. Capsulotomy forceps were then utilized to create a circular tear capsulotomy. Hydrodissection and hydrodelineation were carried out until adequate mobilization of the nucleus occurred. Phacoemulsification was then utilized to remove the dense central nucl eus followed by removal of the cortical material utilizing the automated aspiration irrigation unit. Viscoelastic was instilled into the posterior capsular bag followed by placement of a posterior chamber intraocular lens without difficulty. The residual Viscoelastic was then removed utilizing the automated IA machine. The wound was checked and found to be watertight. The patient tolerated the procedure well and the lid speculum was removed. Intracameral injection of Vigamox 0.1 mL followed by a subtenon injection of Kenalog-40 0.2 mL were administered. The patient will be seen in the a.m.
[2024-05-01 11:09] VITALS: BP 163/72; PULSE 60; RESP 14; TEMP 36.6; O2SAT 100
[2024-05-01 11:24] VITALS: BP 144/65; PULSE 60; RESP 18; TEMP 36.6; O2SAT 99
--- NOTE | 2024-05-01 11:54 | HO.POSTANES ---
Post Anesthesia Evaluation Post Anesthesia Evaluation Date of Service: 05/01/24 Vital Signs: Vital Signs Temp Pulse Resp BP Pulse Ox O2 Del Method 05/01/24 11:24 98 F 60 18 144/65 H 99 Room Air 05/01/24 11:09 98 F 60 14 163/72 H 100 Room Air 05/01/24 09:23 97.2 F 60 16 152/76 H 97 Room Air Anesthesia: Monitored Mental Status: Awake Pain Control: Satisfactory Nausea/Vomiting: None Hydration: Adequate Anesthesia-Related Issues: No Anes. Related Issues
== END 2024-05-01 11:28 | disposition home or self-care (01) ==
PROVIDERS: PCP Internal Medicine; Visit Provider Ophthalmology
PROC: (CPT 66985; principal; 2024-05-01 10:00)
DX: H25.11 Age-related nuclear cataract, right eye (principal); H54.7 Unspecified visual loss; H40.1134 Primary open-angle glaucoma, bilateral, indeterminate stage; H18.413 Arcus senilis, bilateral; I10 Essential (primary) hypertension; E78.00 Pure hypercholesterolemia, unspecified; R73.01 Impaired fasting glucose; G47.33 Obstructive sleep apnea (adult) (pediatric); I48.91 Unspecified atrial fibrillation; I25.10 Atherosclerotic heart disease of native coronary artery without angina pectoris; Z95.5 Presence of coronary angioplasty implant and graft; Z95.2 Presence of prosthetic heart valve; Z79.01 Long term (current) use of anticoagulants; Z79.51 Long term (current) use of inhaled steroids; Z79.82 Long term (current) use of aspirin; Z79.899 Other long term (current) drug therapy; Z87.891 Personal history of nicotine dependence
CPT/HCPCS: 66984; 82947; J2250; J3010; J3301; V2630